=== PATIENT | male | born 1950 | race Caucasian/White ===

== ENCOUNTER 2024-07-30 08:18 | Outpatient (OUT) | payer MEDICARE, SELFPAY ==
[2024-07-30 08:53] LABS: Basophils Absolute Auto 0.1 10^3/uL (0.0-0.1); Basophils Percent Auto 1.4 % (0.2-2.0); Eosinophils Absolute Auto 0.4 10^3/uL (0.0-0.7); Eosinophils Percent Auto 4.6 % (0.9-7.0); Hematocrit 41.5 % (42.0-54.0); Hemoglobin 13.5 g/dL (14.0-18.0); Immature Granulocytes Abs Auto 0.03 10^3/uL (0.00-0.03); Immature Granulocytes Pct Auto 0.3 % (0.0-0.5); Lymphocytes Absolute Auto 1.5 10^3/uL (1.2-3.8); Lymphocytes Percent Auto 17.2 % (20.5-60.0); Mean Corpuscular HGB Conc 32.5 g/dL (29.9-35.2); Mean Corpuscular Hemoglobin 30.1 pg (25.9-34.0); Mean Corpuscular Volume 92.4 fL (80.0-94.0); Mean Platelet Volume 8.3 fL (9.5-13.5); Monocytes Absolute Auto 0.5 10^3/uL (0.3-0.8); Monocytes Percent Auto 5.8 % (1.7-12.0); Neutrophils Absolute Auto 6.2 10^3/uL (1.4-6.5); Neutrophils Percent Auto 70.7 % (43.0-75.0); Platelet Count 235 10^3/uL (150-450); Red Blood Count 4.49 10^6/uL (4.70-6.10); Red Cell Distribution Width 15.8 % (11.0-15.0); White Blood Count 8.8 10^3/uL (4.0-11.0)
[2024-07-30 09:23] LABS: Anion Gap 9.7; BUN Creatinine Ratio 12.2; Calcium 8.7 mg/dL (8.5-10.1); Carbon Dioxide 29.3 mmol/L (21.0-32.0); Chloride 105 mmol/L (98-107); Estimated GFR (African America >60 (>=60 mL/min/1.73m^2); Estimated GFR (Non-African Ame 58 (>=60 mL/min/1.73m^2); Glucose 104 mg/dL (74-106); Sodium 140 mmol/L (136-145); Thyroid Stimulating Hormone 3.311 uIU/mL (0.358-3.740)
== END 2024-07-30 08:19 | disposition home or self-care (01) ==
LOC: CARD 08:23
PROVIDERS: PCP Internal Medicine; Visit Provider Internal Medicine
DX: R00.2 Palpitations (principal); R53.83 Other fatigue; R01.1 Cardiac murmur, unspecified; G47.33 Obstructive sleep apnea (adult) (pediatric)
CPT/HCPCS: 36415; 80048; 84443; 85025; 93242

== ENCOUNTER 2024-08-07 13:55 | Outpatient (OUT) | payer MEDICARE, SELFPAY ==
--- NOTE | 2024-08-07 14:00 | CA_ITS ---
Patient Name: REBECA NICOLE MR#: [id number] : 1950 Exam Date: 08/07/2024 Ordering Doctor: DR YULIANA LARRY D.O. ECHOCARDIOGRAM REPORT PROCEDURE: CA ECHO DOPPLER COMPLETE INDICATIONS: Heart murmur, palpitations COMPARISON: None. DESCRIPTION: COMPLETE ECHOCARDIOGRAM Real-time transthoracic echocardiography with 2D, M-mode, spectral and color flow Doppler performed. QUALITY: Technical quality was suboptimal LEFT VENTRICLE: Normal chamber size. Borderline left ventricular hypertrophy. Left ventricular systolic function appears to be preserved but cannot totally rule out wall motion abnormalities because of the poor endocardial definition. Recommend to repeat 2D with contrast. LV EF: Normal left ventricular ejection fraction 55% neck DIASTOLIC: Normal diastolic function. ATRIAL SEPTUM: Appears intact LEFT ATRIUM: Normal chamber size. RIGHT ATRIUM: Moderate dilatation. RIGHT VENTRICLE: Normal chamber size. Normal right ventricular systolic function. TRICUSPID VALVE: Normal mobility and thickness. No stenosis with trivial regurgitation. Doppler studies reveal mildly (35-45) elevated right sided pressures.RVSP 41 mmHg MITRAL VALVE: Normal mobility and thickness. No evidence of mitral valve stenosis or regurgitation. Mild mitral annular calcification. AORTIC VALVE: Normal trileaflet appearance. Mildly calcified aortic valve. Normal leaflet mobility. No evidence of aortic valve stenosis. No aortic regurgitation. AORTIC ROOT: Normal diameter and appearance. Ascending aorta is normal in size. PULMONIC VALVE: Normal thickness and mobility. No stenosis. No regurgitation. PERICARDIUM: No evidence of pericardial effusion. IVC: IVC is dilated (2.4 cm), does not fully collapse. PLEURA: CONCLUSION: Technically difficult study Left ventricle systolic function appears to be overall preserved however cannot rule out wall motion abnormalities due to suboptimal definition of the endocardium, therefore I recommend to repeat 2D study with contrast, ejection fraction estimated to be 55% Normal left ventricular diastolic function Normal right ventricle size and systolic function Mild pulmonary hypertension, RVSP 41 mmHg No significant valvular abnormalities Dilated IVC without respiratory variation consistent with elevated central venous pressure, RAP 15 mmHg Adult Echocardiography Procedure Report Left Ventricle LVEDD (3.7 - 5.6 cm): 5.01 cm LVESD (2.2 - 4.0 cm): 3.12 cm LVIVS thickness (0.6 - 1.2 cm): 0.94 cm LVPW thickness (0.5 - 1.0 cm): 1.31 cm e': 0.09 m/s E - e': 7.52 LVOT Max Gradient: 1.90 mm[Hg] LVOT Area (cm2): 0.69 m/s Peak Velocity (LVOT): 0.69 m/s Mean Velocity (LVOT): 0.48 m/s LVOT Diameter 2.98 cm Left Ventricular Ejection Fraction: Left Atrium LA Volume Index (2D A2C): 33.41 ml/m2 Left Atrium Systolic Dimension: 4.73 cm Mitral Valve MV E to A Ratio: 0.93 MV Max Gradient: MV Mean Gradient: Mitral Valve A-Wave Peak Velocity: 0.69 m/s Mitral Valve E-Wave Peak Velocity: 0.65 m/s Cardiovascular Orifice Area: Right Ventricle RV Internal Diastolic Dimension: Aorta AO Root Diam: 3.93 cm Ascending Ao Diam: 3.32 cm Aortic Valve AoV Area (Peak Andrea): 4.13 cm2, 4.13 cm2 AoV Area (VTI): 5.28 cm2, 5.28 cm2 Deceleration Norman: Pressure Half-Time: Peak Velocity(Antegrade Flow): 1.16 m/s Peak Gradient(Antegrade Flow): 5.37 mm[Hg] Mean Velocity(Antegrade Flow): 0.78 m/s Mean Gradient(Antegrade Flow): 2.82 mm[Hg] Velocity Time Integral: 24.04 cm Tricuspid Valve Peak Velocity (Regurgitant Flow): 2.56 m/s Peak Velocity: Pulmonic Valve Mean Gradient: 1.65 mm[Hg] Mean Velocity: 0.59 m/s Peak Velocity: 0.90 m/s, 0.92 m/s Peak Gradient: 3.25 mm[Hg], 3.41 mm[Hg] Right Atrium Right Atrium Systolic Pressure: 98.01 ml, 98.01 ml Dictated by: Jany Lewis MD on 08/07/2024 at 16:42 Approved by: Jany Lewis MD on 08/07/2024 at 16:53
== END 2024-08-07 13:56 | disposition home or self-care (01) ==
LOC: CARD 13:55
PROVIDERS: PCP Internal Medicine; Visit Provider Internal Medicine
DX: R01.1 Cardiac murmur, unspecified (principal); R00.2 Palpitations
CPT/HCPCS: 93306

== ENCOUNTER 2024-08-19 18:27 | Emergency (ER) | payer MEDICARE, SELFPAY ==
[2024-08-19] VITALS (16 sets, daily range): BP systolic 128–164; BP diastolic 73–92; PULSE 52–71; TEMP 36.7; O2SAT 93–97; BMI 35.8
--- NOTE | 2024-08-19 18:46 | ECG_ITS ---
[facility] Test Date: 2024-08-19 Pat Name: REBECA NICOLE Department: Room: - Gender: Male Data Technician: : 1950 Requested By: [id number] Order Number: [id number] Reading MD: BETTE GRAFF M.D. Measurements Intervals [place] Rate: 61 P: 90 TX: 170 QRS: 22 QRSD: 102 T: 52 QT: 432 QTc: 435 Interpretive Statements 1100 Sinus rhythm 9110 normal ECG Compared to ECG 06/13/2021 07:43:30 No significant changes Electronically Signed On 08-19-2024 23:19:07 EDT by BETTE GRAFF M.D.
--- NOTE | 2024-08-19 19:38 | ED.ARRPALP1 ---
HPI - Arrhythmia/Palpitations General Chief Complaint: Arrhythmia/Palpitations Stated Complaint: rapid heart beats Time Seen by Provider: 08/19/24 19:21 Source: patient Mode of arrival: walk-in Limitations: no limitations History of Present Illness HPI narrative: patient complains of 2 different type palpitations in his chest over the past couple of months that are becoming more frequent. One is demonstrates a squeezing type rapid beat that is more noticeable when he is lying on his left side. Other times he will experience a fluttering sensation in his chest. Neither one is associated with chest pain, dyspnea or light headiness. Did wear a holter monitor and was called by his PCP. He has been experiencing runs of V. tach and atrial tachycardia. . Related Data Home Medications ?Medication ?Instructions ?Recorded ?Confirmed azithromycin 250 mg tablet mg 08/19/24 omeprazole 40 mg capsule,delayed mg 08/19/24 release tizanidine 4 mg tablet mg 08/19/24 triamcinolone acetonide 0.1 % applic topical 08/19/24 topical cream Allergies Allergy/AdvReac Type Severity Reaction Status Date / Time doxycycline Allergy Mild Hives Verified 08/19/24 18:44 Sulfa (Sulfonamide Allergy Mild Rash Verified 08/19/24 18:44 Antibiotics) Review of Systems ROS Status of ROS 10 or more systems reviewed and unremarkable except as noted in history and below [facility] Medical History (Updated 08/19/24 @ 23:52 by Samir Morales RN) GERD (gastroesophageal reflux disease) ?K21.9 - Gastro-esophageal reflux disease without esophagitis (ICD-10) Family History (Updated 08/19/24 @ 23:55 by Samir Morales RN) Other Rosacea Social History Little interest or pleasure in doing things: not at all Feeling down, depressed, or hopeless: not at all Exam Constitutional Vital Signs, click to edit/add: Last Vital Signs Temp 98.4 F 08/20/24 00:04 Pulse 60 08/20/24 00:04 Resp 18 08/20/24 00:04 BP 139/72 08/20/24 00:04 Pulse Ox 96 08/20/24 00:04 O2 Del Method Room Air 08/19/24 18:44 Common normals: no apparent distress, average body habitus, oriented x3, no limitations, healthy appearing, alert and well nourished [facility] Common normals: normocephalic and head/scalp atraumatic Eye Common normals: PERRL and EOMs intact bilaterally Respiratory Common normals: normal respiratory effort, no retractions, no use of accessory muscles and clear to auscultation bilaterally Cardio Common normals: regular rate, regular rhythm, S1 normal heart sound and S2 normal heart sound Extremity Common normals: normal to inspection and full ROM Neuro Common normals: oriented x3, CN's II-XII intact bilaterally and moves all extremities Psych Appearance: grossly normal Course Vital Signs Vital signs: Vital Signs Pulse Oximetry 95 08/19/24 18:42 Temperature 98.4 F 08/20/24 00:04 Pulse Rate 60 08/20/24 00:04 Respiratory Rate 18 08/20/24 00:04 Blood Pressure 139/72 08/20/24 00:04 Pulse Oximetry 96 08/20/24 00:04 Oxygen Delivery Method Room Air 08/19/24 18:44 MDM - Arrhythmia/Palpitations MDM Narrative Medical decision making narrative: care transferred at change of shift. Patient experiencing runs of V. tach and atrial tachycardia. No associated chest pain, dyspnea, or lightheadedness. Discussed with Community Leader Dr Treadwell and he felt the patient should be hospitalized because of the runs of V. tach. Discussed with the patient and his family and they are agreeable to transfer Lab Data Labs: Lab Results 08/19/24 Range/Units 18:49 WBC 9.2 (4.0-11.0) 10^3/uL RBC 4.52 L (4.70-6.10) 10^6/uL Hgb 13.6 L (14.0-18.0) g/dL Hct 41.2 L (42.0-54.0) % MCV 91.2 (80.0-94.0) fL MCH 30.1 (25.9-34.0) pg MCHC 33.0 (29.9-35.2) g/dL RDW 16.1 H (11.0-15.0) % Plt Count 244 (150-450) 10^3/uL MPV 8.4 L (9.5-13.5) fL Neut % (Auto) 68.7 (43.0-75.0) % Lymph % (Auto) 20.4 L (20.5-60.0) % [place] % (Auto) 6.7 (1.7-12.0) % Eos % (Auto) 2.5 (0.9-7.0) % Baso % (Auto) 1.5 (0.2-2.0) % Neut # (Auto) 6.3 (1.4-6.5) 10^3/uL Lymph # (Auto) 1.9 (1.2-3.8) 10^3/uL [place] # (Auto) 0.6 (0.3-0.8) 10^3/uL Eos # (Auto) 0.2 (0.0-0.7) 10^3/uL Baso # (Auto) 0.1 (0.0-0.1) 10^3/uL Abs Immat Gran (auto) 0.02 (0.00-0.03) 10^3/uL Imm/Tot Granulo (auto) 0.2 (0.0-0.5) % D-Dimer 0.51 (<=0.59) mg/L FEU Sodium 139 (136-145) mmol/L Potassium 3.8 (3.5-5.1) mmol/L Chloride 103 (98-107) mmol/L Carbon Dioxide 29.4 (21.0-32.0) mmol/L Anion Gap 10.4 BUN 17.0 (7.0-18.0) mg/dL Creatinine 1.23 (0.70-1.30) mg/dL Est GFR ( Amer) >60 (>=60 mL/min/1.73m^2) Est GFR (Non-Af Amer) 58 L (>=60 mL/min/1.73m^2) BUN/Creatinine Ratio 13.8 Glucose 94 (74-106) mg/dL Calcium 8.8 (8.5-10.1) mg/dL Troponin I High Sens 6.7 (4.0-76.1) pg/mL NT-Pro-B Natriuret Pep 147.0 (<=900.0) pg/mL Discharge Plan Discharge Chief Complaint: Arrhythmia/Palpitations Clinical Impression: Ventricular tachycardia Patient Disposition: [facility] Discharge Date/Time: 08/20/24 00:18
[2024-08-19 19:42] LABS: Basophils Absolute Auto 0.1 10^3/uL (0.0-0.1); Basophils Percent Auto 1.5 % (0.2-2.0); Eosinophils Absolute Auto 0.2 10^3/uL (0.0-0.7); Eosinophils Percent Auto 2.5 % (0.9-7.0); Hematocrit 41.2 % (42.0-54.0); Hemoglobin 13.6 g/dL (14.0-18.0); Immature Granulocytes Abs Auto 0.02 10^3/uL (0.00-0.03); Immature Granulocytes Pct Auto 0.2 % (0.0-0.5); Lymphocytes Absolute Auto 1.9 10^3/uL (1.2-3.8); Lymphocytes Percent Auto 20.4 % (20.5-60.0); Mean Corpuscular Hemoglobin 30.1 pg (25.9-34.0); Mean Corpuscular Volume 91.2 fL (80.0-94.0); Mean Platelet Volume 8.4 fL (9.5-13.5); Monocytes Absolute Auto 0.6 10^3/uL (0.3-0.8); Monocytes Percent Auto 6.7 % (1.7-12.0); Neutrophils Absolute Auto 6.3 10^3/uL (1.4-6.5); Neutrophils Percent Auto 68.7 % (43.0-75.0); Platelet Count 244 10^3/uL (150-450); Red Blood Count 4.52 10^6/uL (4.70-6.10); Red Cell Distribution Width 16.1 % (11.0-15.0); White Blood Count 9.2 10^3/uL (4.0-11.0)
[2024-08-19 19:50] LABS: D Dimer 0.51 mg/L FEU (<=0.59)
[2024-08-19 20:00] LABS: Anion Gap 10.4; BUN Creatinine Ratio 13.8; Calcium 8.8 mg/dL (8.5-10.1); Carbon Dioxide 29.4 mmol/L (21.0-32.0); Chloride 103 mmol/L (98-107); Estimated GFR (African America >60 (>=60 mL/min/1.73m^2); Estimated GFR (Non-African Ame 58 (>=60 mL/min/1.73m^2); Glucose 94 mg/dL (74-106); Potassium 3.8 mmol/L (3.5-5.1); Sodium 139 mmol/L (136-145); Troponin I High Sensitivity 6.7 pg/mL (4.0-76.1)
--- NOTE | 2024-08-19 21:05 | PC.NURSE ---
this patient said that Dr Cintron is going to transfer him to [facility]
--- NOTE | 2024-08-19 21:13 | PC.NURSE ---
this patient requesting to sit at the edge of the bed,this patient's and his son at bed side. this patient voices no concerns, needs and shows no signs of distress. this patient is aware that we are waiting for the official acceptant and a room number from [facility]
[2024-08-20 00:04] VITALS: BP 139/72; PULSE 60; TEMP 36.9; O2SAT 96
--- NOTE | 2024-08-20 00:19 | PC.NURSE ---
patient report and paper work given to [facility]. this patient voices no concerns and shows no signs of distress. I called patient report to Codi GRECO at [facility] [place] [phone], patient will going to room 0038
== END 2024-08-20 00:18 | disposition short-term general hospital (02) ==
PROVIDERS: Emergency Provider Internal Medicine; PCP Internal Medicine
DX: I47.20 Ventricular tachycardia, unspecified (principal)
CPT/HCPCS: 36415; 71045; 80048; 83880; 84484; 85025; 85378; 93005; 99285

== ENCOUNTER 2024-09-14 08:11 | Outpatient (OUT) | payer MEDICARE, SELFPAY ==
--- NOTE | 2024-09-14 | NM_ITS ---
Patient Name: REBECA NICOLE MR#: [id number] : 1950 Exam Date: 09/14/2024 Ordering Doctor: YESSENIA DELCID CNP RADIOLOGY REPORT PROCEDURE: NM DONALD PERF SPECT REST STR COMPARISON: None. INDICATIONS: ATYPICAL ATRIAL FLUTTER, PVC'S, MILLER TECHNIQUE: Exam Description: Stress/Rest two day protocol gated SPECT Rest Imagin.2 mCi Tc-99m Cardiolite IV on 09/15/2024 Stress Imaging 27.6 mCi Tc-99m Cardiolite IV on 09/14/2024 Exercise Protocol: 0.4 mg Lexiscan given IV Heart Rate (bpm): Rest: 54 Max: 88 PMHR: 60 Blood Pressure: Rest: 128/72 Max: 138/80 Symptoms: Rest and peak stress ECG findings were pending and the exercise portion of the study was pending per attending physician [facility] . For more details please see separate cardiac stress test report. FINDINGS: QUALITY OF STUDY: Good PERFUSION DEFECT: LOCATION: Mid and basal inferior SIZE: Medium SEVERITY: Mild TYPE: Fixed with adequate contractility and thickening consistent with diaphragmatic attenuation WALL MOTION: Normal LV SIZE:EDV 140 mL. TID / TCD: 1.1 LVEF: Calculated EF 50%. SUMMARY: Normal myocardial perfusion imaging study CONCLUSION: Normal myocardial perfusion stress test without evidence of ischemia or infarction. Diaphragmatic attenuation is noted. Normal left ventricle systolic function, ejection fraction 50% No transient ischemic dilatation, TID 1.1 EKG portion of stress test is reported separately Dictated by: Jany Lewis MD on 09/15/2024 at 19:44 Approved by: Jany Lewis MD on 09/15/2024 at 19:49
--- OUTSIDE RECORDS SUMMARY | 2024-09-14 08:13 | XMS_ITS | Referral Summary ---
Author Organization [facility] Address [address] [place] [address] Care Team Providers Care Applications Manager Name Role Phone Gutierrez Morton DO Primary Care Provider [phone] Encounters Date Type Department Care Team Description 08/25/2024 9:00 AM EDT Office Visit [facility] Heart at [address] [id number] Ling Hdz CNP PVC (premature ventricular contraction) (Primary Dx); Atypical atrial flutter (CMS/HCC); Dyspnea on exertion; NSVT (nonsustained ventricular tachycardia) (CMS/HCC); ALEXANDRA (obstructive sleep apnea); Primary hypertension; S/P ablation of atrial flutter 08/20/2024 1:53 AM EDT - 08/22/2024 2:24 PM EDT Hospital Encounter [facility] [address] [place] [phone] Dwight Cody MD Iqbal, Amna, MD Omar, Muhammad, MD Okoro, Bonaventure, MD V-tach (CMS/HCC) (Primary Dx); Atrial flutter, unspecified type (CMS/HCC); Atypical atrial flutter (CMS/HCC) Discharge Disposition: Home or Self Care () 08/21/2024 1:05 PM EDT - 08/21/2024 3:05 PM EDT Surgery [facility] Vascular Lab [address] [place] [phone] Jayro Wright MD Ablation atrial flutter [26032] 08/20/2024 Travel from Last 3 Months Allergies Active Allergy Reactions Criticality Noted Date Comments Doxycycline Hives 08/20/2024 Latex, Natural Rubber Rash Low 02/17/2024 Prednisone Unknown 02/18/2023 Sulfa (Sulfonamide Antibiotics) Rash Low 08/06 Sulfamethoxazole-Trimethoprim Rash,Unknown Low 06/07 Rash Medications Medication Sig Dispensed Refills Start Date End Date Status omeprazole (PriLOSEC) [address] capsule Take 40 mg by mouth before breakfast. Do not crush or chew. Active azithromycin (Zithromax) 250 mg tablet Take 250 mg by mouth every other day. Active apixaban (Eliquis) 5 mg tabletIndications:At ypical atrial flutter (CMS/HCC) Take 1 tablet (5 mg) by mouth two times daily. 60 tablet 1 08/22/2024 10/21/2024 Active metoprolol succinate XL (Toprol-XL) 25 mg 24 hr tabletIndications:At ypical atrial flutter (CMS/HCC) Take 1 tablet (25 mg) by mouth in the morning. Do not crush or chew. 30 tablet 1 08/23/2024 10/22/2024 Active cholecalciferol, vitamin D3, 50 mcg (2,000 unit) capsule Take 2,000 Units by mouth in the morning. Active Active Problems Problem Noted Date Diagnosed Date V-tach 08/20/2024 Assessment & Plan (08/21/2024 1:26 PM EDT): - ANRT sv fib/flutter - Etiology unknown - Getting EP study today Assessment & Plan (08/20/2024 2:35 AM EDT): -Etiology unknown - Most excludes ACS as etiology - Will obtain twelve-lead EKG, troponins, and consult cardiology - Patient is currently started on subcu heparin and monitored very closely HTN (hypertension) 08/20/2024 Assessment & Plan (08/21/2024 1:26 PM EDT): -Blood pressure stable - Patient denies having any prior history of high blood pressure - Will monitor very closely and if numbers continue to be high we will treat Assessment & Plan (08/20/2024 2:35 AM EDT): -Blood pressure today is 157/57. - Patient denies having any prior history of high blood pressure - Will monitor very closely and if numbers continue to be high we will treat Morbid obesity 08/20/2024 Assessment & Plan (08/21/2024 1:26 PM EDT): -Weight loss is extremely important for this patient - Diet and exercise modalities to be used Assessment & Plan (08/20/2024 2:35 AM EDT): -Weight loss is extremely important for this patient - Diet and exercise modalities to be used GERD (gastroesophageal reflux disease) Assessment & Plan (08/21/2024 1:26 PM EDT): Use pantoprazole DVT prophylaxis using VTE protocols per [facility] placed on Protonix Close Monitoring of pt is ordered. N.p.o. after midnight Consult cardiology. I discussed the plan of care with the patient and nursing staff in the room and everyone appears to be in agreement Assessment & Plan (08/20/2024 2:35 AM EDT): Use pantoprazole DVT prophylaxis using VTE protocols per [facility] placed on Protonix Close Monitoring of pt is ordered. N.p.o. after midnight Consult cardiology. 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 No 08/20/2024 Humiliation, Afraid, Rape, and Kick questionnair e Answer Date Recorded Within the last year, have y ou been afraid of your partner or ex-partner? No 08/20/2024 Emotionally Abused Not on file 08/20/2024 Physically Abused Not on file 08/20/2024 Sexually Abused Not on file 08/20/2024 Overall Financial Resource Strain (CARDIA) Answe r Date Recorded How hard is it for you to pa y for the very basics like food, housing, medical care, and heating? Not hard at all 08/20/2024 Transportation Answer Date Recorded In the past 12 months, has l ack of transportation kept you from medical appointments or from getting medications? No 08/20/2024 Lack of Transportation (Non-Medical) Not on file 08/20/2024 Housing Stability Vital Sign Answer Isaias e Recorded In the last 12 months, was t here a time when you were not able to pay the mortgage or rent on time? No 08/20/2024 Number of Times Moved in the Last Year Not on fi le 08/20/2024 At any time in the past 12 m [facility], were you homeless or living in a snf (including now)? No 08/20/2024 Hunger Vital Sign Answer Date Recorded Within the past 12 months, y ou worried that your food would run out before you got the money to buy more. Never true 08/21/19 25 Ran Out of Food in the Last Year Not on file 08/20/2024 Sex and Gender Information Value Date Recorded Sex Assigned at Male 08/20/2024 9:17 AM EDT Gender Identity Male 08/20/2024 9:17 AM EDT Sexual Orientation Don't know 08/20/2024 9 :17 AM EDT Last Filed Vital Signs Vital Sign Reading Time Taken Comments Blood Pressure 142/85 08/25/2024 8:58 AM EDT Pulse 57 08/25/2024 8:58 AM EDT Temperature 36.3 C (97.3 F) 08/22/2024 12:16 PM EDT Respiratory Rate 12 08/22/2024 12:16 PM EDT Oxygen Saturation 98% 08/25/2024 8:58 AM EDT Inhaled Oxygen Concentration - - Weight 143 kg (316 lb) 08/25/2024 8:58 AM EDT Height 182.9 cm (6') 08/25/2024 8:58 AM EDT Body Mass Index 42.86 08/25/2024 8:58 AM EDT Plan of Treatment Upcoming Encounters Date Type Department Care Team (Late st Contact Info) Description 10/27/2024 1:45 PM EDT Office Visit [facility] Heart at [facility] [address] [place] [address] Magdy Phoenix MD [address] [place] [phone] Procedures Procedure Name Priority Date/Time Associated Diagnosis Comments ECG 12 LEAD UNIT PERFORMED Routine 08/25/2024 8:59 AM EDT Atypical atrial flutter (CMS/HCC) LIMITED ECHO (TTE) Routine 08/22/2024 9: 03 AM EDT MAGNESIUM Pending Discharge 08/22/2024 7:09 AM EDT COMPREHENSIVE METABOLIC PANEL Pending Discharge 08/22/2024 7:09 AM EDT CBC Pending Discharge 08/22/2024 7:09 AM EDT ECG 12-LEAD Today 08/21/2024 4:38 PM EDT ABLATION A-FLUTTER Routine 08/21/2024 4: 03 PM EDT Atrial flutter, unspecified type (CMS/HCC) POCT ACT Routine 08/21/2024 3:55 PM EDT COMPLETE ECHO (TTE) W/ IMAGING AGENT Routine 08/20/2024 3:00 PM EDT ECG 12-LEAD Routine 08/20/2024 6:26 AM EDT CBC WITH AUTO DIFFERENTIAL Routine 08/20/2024 4:25 AM EDT HIGH SENSITIVITY TROPONIN I Routine 08/20/2024 4:25 AM EDT CBC AND DIFFERENTIAL Routine 08/20/2024 4:25 AM EDT COMPREHENSIVE METABOLIC PANEL Routine 08/20/2024 4:25 AM EDT from Last 3 Months Results * ECG 12 lead unit performed (08/25/2024 8:59 AM EDT) Ling Hdz [facility] ECG ORDERABLES * LIMITED ECHO (TTE) (08/22/2024 9:03 AM EDT) Anatomical Region Laterality Modality Other 08/22/2024 8:58 AM EDT Narrative 08/22/2024 10:23 AM EDT 1 1 [place] [facility] Heart Station [address] [place] [address] [phone] (fax) Echocardiogram-[facility] Name: REBECA NICOLE Study Date: 08/22/2024 08:58 AM B/P: 153 mmHg/80 mmHg HR: Date of : 1950 Location: [facility] Height: 75 in. Age: 74 year(s) Patient Room: 3167 Weight: 296 lb. Gender: Male Patient Status: InPt BSA: 2.59 m2 Indication: R/O pericardial effusion, S/P aflutter ablation 08/21/24 Examination: Limited Echo Image Quality: Fair Patient Consent: Procedure explained to patient Conclusions Left Ventricle: Global left ventricular systolic function is normal. The EF is 55 % visually. Right Ventricle: The right ventricle is mildly enlarged. Right ventricular systolic function appears normal. Pericardium: No pericardial effusion. Overall Conclusions: Limited study was performed as ordered no Doppler interrogation of the valves performed. Measurements Left Ventricle Label Value Normal Value LVEF visual 55 % Right Ventricle Label Value Normal Value RVDd, 2D 4.66 cm (1.9cm - 3.8cm) Great Vessels Label Value Normal Value IVC 1.9 cm (1.2cm - 2.3cm) Findings Left Ventricle: Global left ventricular systolic function is normal. The EF is 55 % visually. Right Ventricle: The right ventricle is mildly enlarged. Right ventricular systolic function appears normal. Aortic Valve: Mild aortic cusp calcification is noted. Pericardium: No pericardial effusion. The Attending Physician has personally reviewed the examination Procedure Staff Reading Group: [facility] Religion Instructor: Junior Aguilar RDCS Ordering Physician: JAYRO WRIGHT Procedure Note Mehdi Pat MD - 08/22/2024 1 1 [place] [facility] Heart Station [address] [facility] [place] [address] [phone] (fax) Echocardiogram-[facility] Name: REBECA NICOLE Study Date: 08/22/2024 08:58 AM B/P: 153 mmHg/80 mmHg HR: Date of : 1950 Location: [facility] Height: 75 in. Age: 74 year(s) Patient Room: 3167 Weight: 296 lb. Gender: Male Patient Status: InPt BSA: 2.59 m2 Indication: R/O pericardial effusion, S/P aflutter ablation 08/21/24 Examination: Limited Echo Image Quality: Fair Patient Consent: Procedure explained to patient Conclusions Left Ventricle: Global left ventricular systolic function is normal. The EF is 55 % visually. Right Ventricle: The right ventricle is mildly enlarged. Right ventricular systolic function appears normal. Pericardium: No pericardial effusion. Overall Conclusions: Limited study was performed as ordered no Doppler interrogation of the valves performed. Measurements Left Ventricle Label Value Normal Value LVEF visual 55 % Right Ventricle Label Value Normal Value RVDd, 2D 4.66 cm (1.9cm - 3.8cm) Great Vessels Label Value Normal Value IVC 1.9 cm (1.2cm - 2.3cm) Findings Left Ventricle: Global left ventricular systolic function is normal. The EF is 55 % visually. Right Ventricle: The right ventricle is mildly enlarged. Right ventricular systolic function appears normal. Aortic Valve: Mild aortic cusp calcification is noted. Pericardium: No pericardial effusion. The Attending Physician has personally reviewed the examination Procedure Staff Reading Group: [facility] Religion Instructor: Junior Aguilar RDCS Ordering Physician: JAYRO WRIGHT Jayro Wright MD CV ECHO PROCEDURES * (ABNORMAL) CBC (08/22/2024 7:09 AM EDT) Auto WBC 9.06 4.00 - 10.60 10*3/uL 08/22/2024 8:24 AM EDT [facility] ([facility]) RBC 4.46 4.20 - 5.70 10*6/uL 08/22/2024 8:24 AM EDT [facility] ([facility]) Hemoglobin 13.3 13.0 - 17.0 g/dL 08/22/2024 8:24 AM EDT [facility] ([facility]) Hematocrit 41.2 39.0 - 50.0 % 08/22/2024 8:24 AM EDT [facility] ([facility]) MCV 92.4 82.0 - 98.0 fL 08/22/2024 8:24 AM EDT [facility] ([facility]) MCH 29.8 27.0 - 33.0 pg 08/22/2024 8:24 AM EDT [facility] ([facility]) MCHC 32.3 32.0 - 35.0 g/dL 08/22/2024 8:24 AM EDT [facility] ([facility]) RDW 16.2(H) 11.5 - 15.0 % 08/22/2024 8:24 AM EDT [facility] ([facility]) Platelets 241 150 - 400 10*3/uL 08/22/2024 8:24 AM EDT [facility] ([facility]) Blood Venous blood specimen / Unknown Venipuncture / Unknown 08/22/2024 7:09 AM EDT 08/22/2024 8:00 AM EDT Anika Quintanilla MD LAB BLOOD ORDERABLES Performing Organization Address City/[facility]/ZIP Co de Phone Number [facility]) [address] [place] [address] * Magnesium (08/22/2024 7:09 AM EDT) Magnesium 2.2 1.9 - 2.7 mg/dL 08/22/2024 8:22 AM EDT [facility] ([facility]) Blood Venous blood specimen / Unknown Venipuncture / Unknown 08/22/2024 7:09 AM EDT 08/22/2024 7:59 AM EDT Anika Quintanilla MD LAB BLOOD ORDERABLES Performing Organization Address City/[facility]/ZIP Co de Phone Number [facility] ([facility]) [address] [place] [address] * (ABNORMAL) Comprehensive metabolic panel (08/22/2024 7:09 AM EDT) Only the most recent of2 resultswithin the time period is included. Sodium 140 136 - 145 mmol/L 08/22/2024 8:22 AM EDT [facility] ([facility]) Potassium 4.3 3.5 - 5.1 mmol/L 08/22/2024 8:22 AM EDT [facility] ([facility]) Chloride 107 98 - 107 mmol/L 08/22/2024 8:22 AM EDT [facility] ([facility]) CO2 29 21 - 31 mmol/L 08/22/2024 8:22 AM EDT [facility] ([facility]) Anion Gap 8 7 - 20 mmol/L 08/22/2024 8:22 AM EDT [facility] ([facility]) BUN 16 7 - 25 mg/dL 08/22/2024 8:22 AM [facility] ([facility]) Creatinine 1.07 0.70 - 1.30 mg/dL 08/22/2024 8:22 AM [facility] ([facility]) BUN/Creatinine Ratio 15.0 08/06 8:22 AM [facility] ([facility]) Glucose 97 70 - 100 mg/dL 08/22/2024 8:22 AM [facility] ([facility]) Calcium 8.5(L) 8.6 - 10.3 mg/dL 08/22/2024 8:22 AM [facility] ([facility]) AST 15 13 - 39 U/L 08/22/2024 8:22 AM [facility] ([facility]) ALT (SGPT) 12 7 - 52 U/L 08/22/2024 8:22 AM [facility] ([facility]) Alkaline Phosphatase 57 34 - 104 U/L 08/22/2024 8:22 AM [facility] ([facility]) Total Protein 6.7 6.0 - 8.3 g/dL 08/22/2024 8:22 AM [facility] ([facility]) Albumin 3.6 3.5 - 5.7 g/dL 08/22/2024 8:22 AM [facility] ([facility]) Total Bilirubin 0.5 0.3 - 1.0 mg/dL 08/22/2024 8:22 AM [facility] ([facility]) eGFR 72.8 >60.0 mL/min/1. 73m*2 08/22/2024 8:22 AM [facility] ([facility]) Comment:The [facility] s estimated glomerular filtration rate (eGFR) will no longer include consideration of race in its calculation. The [employer] s eGFR Task Force developed new recommendations for the estimation of the glomerular filtration rate in the [place] They recommend immediate implementation of the new equation refit without the race variable in all laboratories because the calculation does not include race. In addition to not including race in the calculation and reporting, it included diversity in its development, and has acceptable performance characteristics and potential consequences that do not disproportionately affect any one group of individuals. Blood Venous blood specimen / Unknown Venipuncture / Unknown 08/22/2024 7:09 AM EDT 08/22/2024 7:59 AM EDT Anika Quintanilla MD LAB BLOOD ORDERABLES Performing Organization Address City/[facility]/ZIP Co de Phone Number [facility] ([facility]) [address] [place] [address] * ECG 12 lead (08/21/2024 4:38 PM EDT) Only the most recent of2 resultswithin the time period is included. Ventricular Rate 62 BPM GE MUSE Atrial Rate 62 BPM GE MUSE ID Interval 186 ms GE MUSE QRS DURATION 114 ms GE MUSE QT Interval 454 ms GE MUSE QTC CALCULATION(BAZE TT) 460 ms GE MUSE P [place] 107 degrees GE MUSE R-[place] -22 degrees GE MUSE T Wave [place] 21 degrees GE MUSE 08/21/2024 4:33 PM EDT 08/21/2024 4:46 PM EDT Impressions GE MUSE - 08/21/2024 4:46 PM EDT Normal sinus rhythm Normal ECG When compared with ECG of 20-AUG-2024 02:53, Premature ventricular complexes are no longer Present Confirmed by Emerson GROSS SAMER J. ([id number]) on 08/21/2024 4:46:23 PM Narrative Procedure Note Horace Gross MD - 08/21/2024 IMPRESSION: Normal sinus rhythm Normal ECG When compared with ECG of 20-AUG-2024 02:53, Premature ventricular complexes are no longer Present Confirmed by Emerson GORSS SAMER J. ([id number]) on 08/21/2024 4:46:23 PM Jayro Wright MD ECG ORDERABLES GE MUSE * ABLATION A-FLUTTER (08/21/2024 4:03 PM EDT) Anatomical Region Laterality Modality Other Narrative 08/21/2024 5:07 PM EDT Images from the original result were not included. 08/21/24 Diagnostic EP Study and Atrial flutter ablation Patient consent: EPS and RFA were discussed with the patient in great detail. The risks of bleeding, infection, vascular injury, pulmonary embolus, cardiac perforation, heart block necessitating pacemaker insertion, stroke, NE and were among those discussed. Alternatives were reviewed including the option of no therapy. All questions were answered. The patient agreed to proceed. Written informed consent was obtained from the patient after a full explanation of the risks and benEPS and RFA were discussed with the patient in great detail. The risks of bleeding, infection, vascular injury, pulmonary embolus, cardiac perforation, heart block necessitating pacemaker insertion, stroke, NE and were among those discussed. Alternatives were reviewed including the option of no therapy. All questions were answered. The patient agreed to proceed. Written informed consent was obtained from the patient after a full explanation of the risks and benefits of the procedure. The patient was brought to the lab in the fasting state. Continuous electrocardiographic and hemodynamic monitoring was initiated. The patient was prepped and draped in the usual sterile fashion. Presenting Rhythm: Sinus Rhythm Vascular Access: On the right CFV, we obtained access with 7 and 8 Fr venous On the left CFV: 11 Fr and 8 Fr Diagnostic catheters: CS- diagnostic catheter, Pentaray mapping catheter, ST-SF: ablation catheter. We also placed the His and RV catheters. Arrhythmia: During placement of diagnostic catheters, we noticed that the patient developed narrow complex tachycardia-which was likely in keeping with atrial flutter with a tachycardia cycle length of 288 ms with some variability. Considering this, we then performed entrainment at cycle length of 260 ms from CS 7,8 demonstrated: Concealed entrainment with PPI minus TCL = 0 ms. There was some challenge in keeping the ablation catheter and diagnostic catheters in a stable position. We then decided to use high density mapping/PentaRay catheter to perform an activation map. Based on the activation map of the right atrium, we noticed that the early meets late point was concentrated/localized to the cavotricuspid isthmus region. Based on this, clinical tachycardia as well as entrainment response we concluded that the clinical arrhythmia was cavotricuspid isthmus dependent atrial flutter. 3 D mapping (BiosXtellus Jo), was used to create the right atrial shell as well as electroanatomical map. Ablation: The 8F sheath was then exchanged for the Vizigo sheath. Biosense Jo Thermocool ST-SFr ablation catheter was advanced through this sheath and positioned along the CTI. Using the Biosense Jo CARTO3 electroanatomical mapping system and fluoroscopy CTI ablation was performed from the tricuspid annulus to the inferior vena cava. During CTI ablation, the atrial flutter slowed and terminated. After first pass ablation, additional mapping of the CTI line was performed to confirm double potentials and assess transisthmus conduction time. End points: Bidirectional block was achieved and verified by pacing from CS and ablation catheter (medial and lateral to the line). Under high quality fluoroscopy, the CS catheter, ICE catheter, and Agilis sheath/ablation catheter were removed from the body (through the IVC filter) without disruption of the IVC filter position. Hemostasis: Figure of 8 suture were applied on both sides Conclusions: The Ablation map is shown below- depicting ablation lesions Recommendations: - Please give Apixaban tonight at 2200 - Figure of 8 sutures to be removed tomorrow Magdy Phoenix MD CV ELECTROPHYSIOLOGY PROCEDURES * (ABNORMAL) POC Activated Clotting Time (08/21/2024 3:55 PM EDT) [facility] Signature POCT ACT 216(A) 82 - 152 seconds QC Pass/Fail Passed QC LOT # 8 QC Expiration Date 73,125 Blood Venous blood specimen / Unknown 08/21/2024 3:55 PM EDT Narrative Ron Aguiar MT - 08/25/2024 7:39 AM EDT Qc lot [id number]; emulsification operator [id number] Jayro Wright MD POINT OF CARE TEST E NTER/EDIT ORDERABLES * COMPLETE ECHO (TTE) W/ IMAGING AGENT (08/20/2024 3:00 PM EDT) Anatomical Region Laterality Modality Other 08/20/2024 2:24 PM EDT Narrative 08/20/2024 5:26 PM EDT 1 1 [place] [facility] Heart Station [address] [place], [place] [phone] (fax) Echocardiogram-[facility] Name: REBECA NICOLE Study Date: 08/20/2024 02:24 PM B/P: 125 mmHg/96 mmHg HR: 57 bpm Date of : 1950 Location: [facility] Height: 78 in. Age: 74 year(s) Patient Room: [facility] Weight: 310 lb. Gender: Male Patient Status: InPt BSA: 2.72 m2 Indication: Paroxysmal atrial tachycardia Examination: Echocardiogram (Complete), Lumason Contrast Image Quality: Fair Patient Consent: Procedure explained to patient Exam Details Contrast: I.V. dose of Lumason Conclusions Left Ventricle: The left ventricle is normal size. Global left ventricular systolic function is normal. The EF is 60 % visually. Left ventricular wall thickness is mildly increased. No regional wall motion abnormality. Right Ventricle: The right ventricle appears enlarged. Right ventricular systolic function appears normal. Unable to assess right sided pressures due to lack of measurable tricuspid regurgitation. Left Atrium: The left atrium is mildly enlarged. Overall Conclusions: Due to suboptimal imaging Lumason contrast was administered for opacification and better delineation of endocardial borders. Measurements Left Ventricle Label Value Normal Value LVOTd 2.6 cm (19cm - 21cm) LVOT VTI 17.7 cm (18cm - 22cm) LVOT PGmax 3 mmHg LVEF visual 60 % LVDd, 2D 4.36 cm (4.2cm - 5.9cm) LVDs, 2D 2.97 cm (2.1cm - 4cm) IVSd, 2D 1.17 cm (0.6cm - 1.1cm) LVPWd, 2D 1.16 cm (0.6cm - 1cm) LV Mass, 2D ASE 180.76 g LV Mass Index, 2D ASE 66.5 g/m?? (50g/m?? - 102.4g/m??) RWT, MM 0.53 (0 - 0.42) LVSVI, 2D 19.1 ml/m2 LVOT PGmean 1 mmHg LVSV_LVOT 94 ml Left Atrium Label Value Normal Value LA Volume, BP 96 ml (18ml - 58ml) LADs, 2D 4.1 cm (3cm - 4cm) LAESV index, BP 35.3 ml/m?? Right Atrium Label Value Normal Value RA Area 25.5 cm?? Aortic Valve Label Value Normal Value AV DVI 0.54 AV VTI 33.5 cm Mitral Valve Label Value Normal Value MV E Vmax 0.64 m/s MV A Vmax 0.76 m/s MV E/A 0.84 MV E/E' lateral 6.7 MV E' lateral 0.1 m/s Aorta Label Value Normal Value AoAsc 3.4 cm AoRoot, 2D 3.3 cm (1.4cm - 3.8cm) Great Vessels Label Value Normal Value IVC 2.4 cm (1.2cm - 2.3cm) Valvular Assessment LVOT 0.7 - 1.1 m/sec Aortic Valve 1.0 - 1.7 m/sec Mitral Valve 0.6 - 1.3 m/sec Tricuspid Valve 0.3 - 0.7 m/sec Pulmonic Valve 0.6 - 0.9 m/sec Regurgitation No Trivial Trivial Trivial Stenosis No No No No Max Velocity 0.86 m/sec 1.59 m/s 0.64 m/sec Max Gradient 10.00 mmHg Mean Gradient 5.00 mmHg Valve Area 2.9 cm?? Findings Left Ventricle: The left ventricle is normal size. Global left ventricular systolic function is normal. The EF is 60 % visually. Left ventricular wall thickness is mildly increased. No regional wall motion abnormality. Right Ventricle: The right ventricle appears enlarged. Right ventricular systolic function appears normal. Unable to assess right sided pressures due to lack of measurable tricuspid regurgitation. Left Atrium: The left atrium is mildly enlarged. Right Atrium: The right atrium is moderately enlarged. Mitral Valve: Trivial mitral regurgitation. No mitral valve stenosis. There is mitral annular calcification. Aortic Valve: No aortic valve regurgitation. No aortic valve stenosis. Aortic leaflets exhibit mild calcification. The aortic valve is trileaflet. Tricuspid Valve: Tricuspid valve appears normal. Trivial tricuspid regurgitation. No tricuspid valve stenosis. Pulmonic Valve: Pulmonary valve appears normal. Trivial pulmonary regurgitation. No pulmonic valve stenosis. Aorta: The aortic root exhibits normal size. The ascending aorta measures 3.40 cm. Ascending aorta is normal in size. Great Vessels: IVC: The IVC is dilated. There is inspiratory collapse of the IVC. Pericardium: There is mild pericardial thickening anterior to the heart. There is a small pericardial effusion. Procedure Staff Reading Group: [facility] Religion Instructor: MARLA Chan Ordering Physician: MYRNA RAMOS Procedure Note Horace Gross MD - 08/20/2024 1 1 [facility] Heart Station [address] [place] [address] [phone] (fax) Echocardiogram-[facility] Name: REBECA NICOLE Study Date: 08/20/2024 02:24 PM B/P: 125 mmHg/96 mmHg HR: 57 bpm Date of : 1950 Location: [facility] Height: 78 in. Age: 74 year(s) Patient Room: 3167 Weight: 310 lb. Gender: Male Patient Status: InPt BSA: 2.72 m2 Indication: Paroxysmal atrial tachycardia Examination: Echocardiogram (Complete), Lumason Contrast Image Quality: Fair Patient Consent: Procedure explained to patient Exam Details Contrast: I.V. dose of Lumason Conclusions Left Ventricle: The left ventricle is normal size. Global left ventricular systolic function is normal. The EF is 60 % visually. Left ventricular wall thickness is mildly increased. No regional wall motion abnormality. Right Ventricle: The right ventricle appears enlarged. Right ventricular systolic function appears normal. Unable to assess right sided pressures due to lack of measurable tricuspid regurgitation. Left Atrium: The left atrium is mildly enlarged. Overall Conclusions: Due to suboptimal imaging Lumason contrast was administered for opacification and better delineation of endocardial borders. Measurements Left Ventricle Label Value Normal Value LVOTd 2.6 cm (19cm - 21cm) LVOT VTI 17.7 cm (18cm - 22cm) LVOT PGmax 3 mmHg LVEF visual 60 % LVDd, 2D 4.36 cm (4.2cm - 5.9cm) LVDs, 2D 2.97 cm (2.1cm - 4cm) IVSd, 2D 1.17 cm (0.6cm - 1.1cm) LVPWd, 2D 1.16 cm (0.6cm - 1cm) LV Mass, 2D ASE 180.76 g LV Mass Index, 2D ASE 66.5 g/m?? (50g/m?? - 102.4g/m??) RWT, MM 0.53 (0 - 0.42) LVSVI, 2D 19.1 ml/m2 LVOT PGmean 1 mmHg LVSV_LVOT 94 ml Left Atrium Label Value Normal Value LA Volume, BP 96 ml (18ml - 58ml) LADs, 2D 4.1 cm (3cm - 4cm) LAESV index, BP 35.3 ml/m?? Right Atrium Label Value Normal Value RA Area 25.5 cm?? Aortic Valve Label Value Normal Value AV DVI 0.54 AV VTI 33.5 cm Mitral Valve Label Value Normal Value MV E Vmax 0.64 m/s MV A Vmax 0.76 m/s MV E/A 0.84 MV E/E' lateral 6.7 MV E' lateral 0.1 m/s Aorta Label Value Normal Value AoAsc 3.4 cm AoRoot, 2D 3.3 cm (1.4cm - 3.8cm) Great Vessels Label Value Normal Value IVC 2.4 cm (1.2cm - 2.3cm) Valvular Assessment LVOT 0.7 - 1.1 m/sec Aortic Valve 1.0 - 1.7 m/sec Mitral Valve 0.6 - 1.3 m/sec Tricuspid Valve 0.3 - 0.7 m/sec Pulmonic Valve 0.6 - 0.9 m/sec Regurgitation No Trivial Trivial Trivial Stenosis No No No No Max Velocity 0.86 m/sec 1.59 m/s 0.64 m/sec Max Gradient 10.00 mmHg Mean Gradient 5.00 mmHg Valve Area 2.9 cm?? Findings Left Ventricle: The left ventricle is normal size. Global left ventricular systolic function is normal. The EF is 60 % visually. Left ventricular wall thickness is mildly increased. No regional wall motion abnormality. Right Ventricle: The right ventricle appears enlarged. Right ventricular systolic function appears normal. Unable to assess right sided pressures due to lack of measurable tricuspid regurgitation. Left Atrium: The left atrium is mildly enlarged. Right Atrium: The right atrium is moderately enlarged. Mitral Valve: Trivial mitral regurgitation. No mitral valve stenosis. There is mitral annular calcification. Aortic Valve: No aortic valve regurgitation. No aortic valve stenosis. Aortic leaflets exhibit mild calcification. The aortic valve is trileaflet. Tricuspid Valve: Tricuspid valve appears normal. Trivial tricuspid regurgitation. No tricuspid valve stenosis. Pulmonic Valve: Pulmonary valve appears normal. Trivial pulmonary regurgitation. No pulmonic valve stenosis. Aorta: The aortic root exhibits normal size. The ascending aorta measures 3.40 cm. Ascending aorta is normal in size. Great Vessels: IVC: The IVC is dilated. There is inspiratory collapse of the IVC. Pericardium: There is mild pericardial thickening anterior to the heart. There is a small pericardial effusion. Procedure Staff Reading Group: [facility] Religion Instructor: MARLA Chan Ordering Physician: MYRNA RAMOS Myrna Ramos MD CV ECHO PROCEDURES * High Sensitivity Troponin I (08/20/2024 4:25 AM EDT) [facility] High Sensitivity Troponin I 5 <20 ng/L 08/20/2024 5:52 AM EDT [facility] ([facility]) Blood Venous blood specimen / Unknown Venipuncture / Unknown 08/20/2024 4:25 AM EDT 08/20/2024 5:18 AM EDT Srinivas Vuong MD LAB BLOOD ORDERABLE S [facility] ([facility]) [address] [place] [address] * (ABNORMAL) CBC auto differential (08/20/2024 4:25 AM EDT) [facility] Auto WBC 8.89 4.00 - 10.60 10*3/uL 08/20/2024 5:36 AM EDT [facility] ([facility]) RBC 4.38 4.20 - 5.70 10*6/uL 08/20/2024 5:36 AM EDT [facility] ([facility]) Hemoglobin 13.0 13.0 - 17.0 g/dL 08/20/2024 5:36 AM EDT [facility] ([facility]) Hematocrit 40.3 39.0 - 50.0 % 08/20/2024 5:36 AM EDT [facility] ([facility]) MCV 92.0 82.0 - 98.0 fL 08/20/2024 5:36 AM EDT [facility] ([facility]) MCH 29.7 27.0 - 33.0 pg 08/20/2024 5:36 AM EDT [facility] ([facility]) MCHC 32.3 32.0 - 35.0 g/dL 08/20/2024 5:36 AM EDT [facility] ([facility]) RDW 16.2(H) 11.5 - 15.0 % 08/20/2024 5:36 AM EDT [facility] ([facility]) Neutrophils % 68.1 40.0 - 72.0 % 08/20/2024 5:36 AM EDT [facility] ([facility]) Lymphocytes % 21.1 20.0 - 45.0 % 08/20/2024 5:36 AM EDT [facility] ([facility]) Monocytes % 6.7 5.0 - 12.0 % 08/20/2024 5:36 AM T [facility] ([facility]) Eosinophils % 2.4 0.0 - 6.0 % 08/20/2024 5:36 AM T [facility] ([facility]) Basophils % 1.3(H) 0.0 - 1.0 % 08/20/2024 5:36 AM T [facility] ([facility]) Neutrophils Absolute 6.04 1.60 - 7.60 10*3/uL 08/20/2024 5:36 AM T [facility] ([facility]) Lymphocytes Absolute 1.88 1.20 - 4.00 10*3/uL 08/20/2024 5:36 AM T [facility] ([facility]) Monocytes Absolute 0.60 0.10 - 1.00 10*3/uL 08/20/2024 5:36 AM T [facility] ([facility]) Eosinophils Absolute 0.21 0.00 - 0.50 10*3/uL 08/20/2024 5:36 AM EDT [facility] ([facility]) Basophils Absolute 0.12 0.00 - 0.20 10*3/uL 08/20/2024 5:36 AM T [facility] ([facility]) Platelets 232 150 - 400 10*3/uL 08/20/2024 5:36 AM T [facility] ([facility]) nRBC % 0.0 0 % 08/20/2024 5:36 AM EDT [facility] ([facility]) Immature Granulocytes % 0.4 0.0 - 1.0 % 08/20/2024 5:36 AM EDT [facility] ([facility]) Immature Granulocytes Absolute 0.04 0.00 - 0.20 10*3/uL 08/20/2024 5:36 AM EDT [facility] ([facility]) Blood Venous blood specimen / Unknown Venipuncture / Unknown 08/20/2024 4:25 AM EDT 08/20/2024 5:19 AM EDT Srinivas Vuong MD LAB BLOOD ORDERABLE S [facility] ([facility]) [address] [place] [address] from Last 3 Months Advance Directives * Full Code (Latest Code Status on File) Date Activated Date Inactivated Comments 08/20/2024 2:26 AM 08/22/2024 4:25 PM Care Teams Applications Manager Relationship Specialty Start Date End Date Gutierrez Morton DO [address] [place] [id number] PCP - General Internal Medicine 08/20/24
--- OUTSIDE RECORDS SUMMARY | 2024-09-14 08:13 | XMS_ITS | Clinical Summary ---
Author Organization [facility] Address [address] [place] [address] Care Team Providers Care Mine Captain Name Role Phone Gutierrez Morton DO Primary Care Provider [phone] Allergies Active Allergy Reactions Criticality Noted Date [...] total knee replacement using cement, bilateral 07/26/2020 Encounters Date Type Department Care Team Description 08/25/2024 9:00 AM EDT Office Visit [facility] [place] [address] [place] [address] Ling Hdz CNP PVC (premature ventricular contraction) (Primary Dx); Atypical atrial flutter (CMS/HCC); Dyspnea on exertion; NSVT (nonsustained ventricular tachycardia) (CMS/HCC); ALEXANDRA (obstructive sleep apnea); Primary hypertension; S/P ablation of atrial flutter 08/21/2024 1:05 PM EDT - 08/21/2024 3:05 PM EDT Surgery [facility] V[facility] [address] [place] [phone] Jayro Wright MD Ablation atrial flutter [[id number]] 08/20/2024 1:53 AM EDT - 08/22/2024 2:24 PM EDT Hospital Encounter [facility] [address] [place] [phone] Dwight Cody MD Iqbal, Amna, MD Omar, Muhammad, MD Okoro, Bonaventure, MD V-tach (CMS/HCC) (Primary Dx); Atrial flutter, unspecified type (CMS/HCC); Atypical atrial flutter (CMS/HCC) Discharge Disposition: Home or Self Care () 08/20/2024 Travel from Last 3 Months Family History Relation Name Status Comments Father Mother Social History Tobacco Use Types Packs/Day Years Used Date Smoking Tobacco: Former Cigarettes Smokeless Tobacco: Never Tobacco Cessation:Counseling Given: Not Answered Alcohol Use Standard Drinks/Week Comments Not Currently 0 (1 standard drink = 0.6 oz pur e alcohol) [facility] Utilities Answer Date Recorded In the past [...] any time in the past 12 m [facility], were you homeless or living in a retirement (including now)? No 08/20/2024 Hunger Vital Sign [...] AM EDT Sexual Orientation Don't know 08/20/2024 9: 17 AM EDT Last Filed Vital Signs Vital [...] Description 10/27/2024 1:45 PM EDT Office Visit [facility] [address] [place] [address] Magdy Phoenix MD [address] [place] [address] Health Maintenance Due Date Last Done Comments CT Colonography 1950 Colonoscopy 1950 Colorectal Cancer Screening 1950 FIT-DNA 1950 FIT 1950 FOBT 1950 Medicare Annual Wellness (AWV) 1950 Sigmoidoscopy 1950 Depression Screening 1962 Adult Tetanus 1972 Zoster Vaccines (1 of 2) 2000 Pneumococcal Vaccine: 65+ Ye ars (2 of 2 - PPSV23 or PCV20) 05/13/2019 05/13/2018 COVID-19 Vaccine (1 - 2023-2 5 season) 2023 Influenza Vaccine (Season Ended) 2024 Fall Risk Screening 08/22/2025 08/22/2024 HIB Vaccines Aged Out No longer eligi ble based on patient's age to complete this topic HPV Vaccines Aged Out No longer eligi ble based on patient's age to complete this topic IPV Vaccines Aged Out No longer eligi ble based on patient's age to complete this topic Meningococcal B Vaccine Aged Out No l onger eligible based on patient's age to complete this topic Meningococcal Vaccine Aged Out No irineo palmira eligible based on patient's age to complete this topic Rotavirus Vaccines Aged Out No longer eligible based on patient's age to complete this topic Procedures Procedure Name Priority Date/Time Associated Diagnosis [...] performed (08/25/2024 8:59 AM EDT) Ling Hdz NURSE INFECTION CONTROL ECG ORDERABLES * LIMITED ECHO (TTE) (08/22/2024 9:03 AM EDT) Anatomical Region Laterality Modality Other 08/22/2024 8:58 AM EDT Narrative 08/22/2024 10:23 AM EDT 1 [facility] Heart Station [address] [place] [place] [address] [phone] (fax) Echocardiogram-[facility] Name: REBECA NICOLE Study Date: 08/22/2024 08:58 AM B/P: 153 mmHg/80 mmHg HR: Date of : 1950 Location: [facility] Height: 75 in. Age: 74 year(s) Patient Room: [facility] Weight: 296 lb. Gender: Male Patient Status: [...] reviewed the examination Procedure Staff Reading Group: [facility] Vice President Of Advertising: Junior Aguilar RDCS Ordering Physician: JAYRO WRIGHT Procedure Note Mehdi Pat MD - 08/22/2024 1 1 [facility] Heart Station [address] [place] [address] [phone] (fax) Echocardiogram-[facility] Name: REBECA NICOLE Study Date: 08/22/2024 08:58 AM B/P: 153 mmHg/80 mmHg HR: Date of : 1950 Location: [facility] Height: 75 in. Age: 74 year(s) Patient Room: 316 Weight: 296 lb. Gender: Male Patient Status: [...] reviewed the examination Procedure Staff Reading Group: [facility] Vice President Of Advertising: Junior Aguilar RDCS Ordering Physician: JAYRO WRIGHT Jayro Wright MD CV ECHO PROCEDURES * (ABNORMAL) CBC (08/22/2024 7:09 AM EDT) Auto WBC 9.06 4.00 - 10.60 10*3/uL 08/22/2024 8:24 AM EDT [facility] RBC 4.46 4.20 - 5.70 10*6/uL 08/22/2024 8:24 AM EDT [facility] ([facility] Hemoglobin 13.3 13.0 - 17.0 g/dL 08/22/2024 8:24 AM EDT [facility] ([facility]) Hematocrit 41.2 39.0 - 50.0 % 08/22/2024 8:24 AM EDT [facility] ([facility]) MCV 92.4 82.0 - 98.0 fL 08/22/2024 8:24 AM EDT [facility]) MCH 29.8 27.0 - 33.0 pg 08/22/2024 8:[address] [facility]) MCHC 32.3 32.0 - 35.0 g/dL 08/22/2024 8:24 AM EDT [facility] ([facility]) RDW 16.2(H) 11.5 - 15.0 % 08/22/2024 8:24 AM EDT [facility] ([facility]) Platelets 241 150 - 400 10*3/uL 08/22/2024 8:24 AM EDT [facility] ([facility]) Blood Venous blood specimen / Unknown Venipuncture / Unknown 08/22/2024 7:09 AM EDT 08/22/2024 8:00 AM EDT Anika Quintanilla MD LAB BLOOD ORDERABLES [facility]) [address] [place] [address] * Magnesium (08/22/2024 7:09 AM EDT) Magnesium 2.2 1.9 - 2.7 mg/dL 08/22/2024 8:[address] [facility]) Blood Venous blood specimen / Unknown Venipuncture / Unknown 08/22/2024 7:09 AM EDT 08/22/2024 7:59 AM EDT Anika Quintanilla MD LAB BLOOD ORDERABLES [facility] ([facility] [address] [place] [address] * (ABNORMAL) Comprehensive metabolic panel (08/22/2024 7:09 AM EDT) Only the most recent of2 resultswithin the time period is included. Sodium 140 136 - 145 mmol/L 08/22/2024 8:22 AM EDT [facility] ([facility]) Potassium 4.3 3.5 - 5.1 mmol/L 08/22/2024 8:22 AM EDT [facility] ([facility]) Chloride 107 98 - 107 mmol/L 08/22/2024 8:22 AM EDT [facility] ([facility]) CO2 29 21 - 31 mmol/L 08/22/2024 8:22 AM EDT [facility] ([facility]) Anion Gap 8 7 - 20 mmol/L 08/22/2024 8:22 AM EDT [facility] ([facility]) BUN 16 7 - 25 mg/dL 08/22/2024 8:22 AM EDT [facility] ([facility]) Creatinine 1.07 0.70 - 1.30 mg/dL 08/22/2024 8:22 AM EDT [facility] ([facility]) BUN/Creatinine Ratio 15.0 08/06 8:22 AM EDT [facility] ([facility]) Glucose 97 70 - 100 mg/dL 08/22/2024 8:22 AM EDT [facility] ([facility]) Calcium 8.5(L) 8.6 - 10.3 mg/dL 08/22/2024 8:22 AM EDT [facility] ([facility]) AST 15 13 - 39 U/L 08/22/2024 8:22 AM EDT [facility] ([facility]) ALT (SGPT) 12 7 - 52 U/L 08/22/2024 8:22 AM EDT [facility] ([facility]) Alkaline Phosphatase 57 34 - 104 U/L 08/22/2024 8:22 AM EDT [facility] ([facility]) Total Protein 6.7 6.0 - 8.3 g/dL 08/22/2024 8:22 AM EDT [facility] ([facility]) Albumin 3.6 3.5 - 5.7 g/dL 08/22/2024 8:22 AM EDT [facility] ([facility]) Total Bilirubin 0.5 0.3 - 1.0 mg/dL 08/22/2024 8:22 AM EDT [facility] ([facility]) eGFR 72.8 >60.0 mL/min/1. 73m*2 08/22/2024 8:22 AM EDT [facility] ([facility]) Comment:[facility] s estimated glomerular filtration rate (eGFR) [...] EDT Anika Quintanilla MD LAB BLOOD ORDERABLES [facility] ([facility]) [address] [place] [address] * ECG 12 lead (08/21/2024 4:38 PM EDT) Only the most recent of2 resultswithin the time period is included. Ventricular Rate 62 BPM GE MUSE Atrial Rate 62 BPM GE MUSE WI Interval 186 ms GE MUSE QRS DURATION 114 ms GE MUSE QT Interval 454 ms GE MUSE QTC CALCULATION(BAZE TT) 460 ms GE MUSE P [place] 107 degrees GE MUSE R-[place] -22 degrees GE MUSE T Wave [place] 21 degrees GE MUSE 08/21/2024 4:33 PM [...] perforation, heart block necessitating pacemaker insertion, stroke, [place] and were among those discussed. Alternatives were [...] perforation, heart block necessitating pacemaker insertion, stroke, [place] and were among those discussed. Alternatives were [...] isthmus dependent atrial flutter. 3 D mapping (Biosense Jo), was used to create the right [...] Activated Clotting Time (08/21/2024 3:55 PM EDT) POCT ACT 216(A) 82 - 152 seconds QC Pass/Fail Passed QC LOT # 8 QC Expiration Date 73,125 Blood Venous blood specimen / Unknown 08/21/2024 3:55 PM EDT Narrative Ron Aguiar ODESSA - 08/25/2024 7:39 AM EDT Qc lot [id number]; pure culture operator [id number] Jayro Wright MD POINT OF CARE TEST E NTER/EDIT ORDERABLES * COMPLETE ECHO (TTE) W/ IMAGING AGENT (08/20/2024 3:00 PM EDT) Anatomical Region Laterality Modality Other 08/20/2024 2:24 PM EDT Narrative 08/20/2024 5:26 PM EDT 1 1 [facility] Heart Station [address] [place] [address] [phone] (fax) Echocardiogram-[facility] Name: REBECA NICOLE Study Date: 08/20/2024 02:24 PM B/P: 125 mmHg/96 mmHg HR: 57 bpm Date of : 1950 Location: [facility] Height: 78 in. Age: 74 year(s) Patient Room: [facility] Weight: 310 lb. Gender: Male Patient Status: [...] small pericardial effusion. Procedure Staff Reading Group: [facility] Vice President Of Advertising: MARLA Chan Ordering Physician: MYRNA RAMOS Procedure Note Horace Gross MD - 08/20/2024 1 1 [facility] Heart Station [address] [place] [address] [phone] (fax) Echocardiogram-[facility] Name: REBECA NICOLE Study Date: 08/20/2024 02:24 PM B/P: 125 mmHg/96 mmHg HR: 57 bpm Date of : 1950 Location: [facility] Height: 78 in. Age: 74 year(s) Patient [...] small pericardial effusion. Procedure Staff Reading Group: [facility] Vice President Of Advertising: MARLA Chan Ordering Physician: MYRNA RAMOS Myrna Ramos MD CV ECHO PROCEDURES * High Sensitivity Troponin I (08/20/2024 4:25 AM EDT) High Sensitivity Troponin I 5 <20 ng/L 08/20/2024 5:52 AM EDT [facility] ([place]) Blood Venous blood specimen / Unknown Venipuncture / Unknown 08/20/2024 4:25 AM EDT 08/20/2024 5:18 AM EDT Srinivas Vuong MD LAB BLOOD ORDERABLE S [facility] ([facility] [address] [place] [address] * (ABNORMAL) CBC auto differential (08/20/2024 4:25 AM EDT) Auto WBC 8.89 4.00 - 10.60 10*3/uL 08/20/2024 5:36 AM EDT [facility] RBC 4.38 4.20 - 5.70 10*6/uL 08/20/2024 5:36 AM EDT [facility] ([facility]) Hemoglobin 13.0 13.0 - 17.0 g/dL 08/20/2024 5:36 AM EDT [facility] ([facility]) Hematocrit 40.3 39.0 - 50.0 % 08/20/2024 5:36 AM EDT [facility] ([facility]) MCV 92.0 82.0 - 98.0 fL 08/20/2024 5:36 AM EDT [facility] ([facility]) MCH 29.7 27.0 - 33.0 pg 08/20/2024 5:36 AM EDT [facility]) MCHC 32.3 32.0 - 35.0 g/dL 08/20/2024 5:36 AM EDT [facility]) RDW 16.2(H) 11.5 - 15.0 % 08/20/2024 5:36 AM EDT [facility] ([facility]) Neutrophils % 68.1 40.0 - 72.0 % 08/20/2024 5:36 AM EDT [facility] Lymphocytes % 21.1 20.0 - 45.0 % 08/20/2024 5:36 AM EDT [facility] Monocytes % 6.7 5.0 - 12.0 % 08/20/2024 5:36 AM EDT [facility] Eosinophils % 2.4 0.0 - 6.0 % 08/20/2024 5:36 AM EDT [facility] Basophils % 1.3(H) 0.0 - 1.0 % 08/20/2024 5:36 AM EDT [facility] Neutrophils Absolute 6.04 1.60 - 7.60 10*3/uL 08/20/2024 5:36 AM EDT [facility]) Lymphocytes Absolute 1.88 1.20 - 4.00 10*3/uL 08/20/2024 5:36 AM EDT [facility] Monocytes Absolute 0.60 0.10 - 1.00 10*3/uL 08/20/2024 5:36 AM EDT [facility] Eosinophils Absolute 0.21 0.00 - 0.50 10*3/uL 08/20/2024 5:36 AM EDT [facility] Basophils Absolute 0.12 0.00 - 0.20 10*3/uL 08/20/2024 5:36 AM EDT [facility] Platelets 232 150 - 400 10*3/uL 08/20/2024 5:36 AM EDT [facility] nRBC % 0.0 0 % 08/20/2024 5:36 AM EDT [facility] Immature Granulocytes % 0.4 0.0 - 1.0 % 08/20/2024 5:36 AM EDT [facility] Immature Granulocytes Absolute 0.04 0.00 - 0.20 10*3/uL 08/20/2024 5:36 AM EDT [facility] Blood Venous blood specimen / Unknown Venipuncture / Unknown 08/20/2024 4:25 AM EDT 08/20/2024 5:19 AM EDT Srinivas Vuong MD LAB BLOOD ORDERABLE S [facility] [address] [place] [address] from Last 3 Months Advance Directives * Full Code (Latest Code Status on File) Date Activated Date Inactivated Comments 08/20/2024 2:26 AM 08/22/2024 4:25 PM Care Teams Mine Captain Relationship Specialty Start Date End Date Gutierrez Morton DO [address] [place] [address] PCP - General Internal Medicine 08/20/24
--- OUTSIDE RECORDS SUMMARY | 2024-09-14 08:27 | XMS_ITS | CCD ---
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 Name Role Phone ADAM BRENNON SANDY (RES) Attending Unavailable Reji Roy Unavailable DO Gutierrez Larry Primary Care Provider MD Reji Roy Attending Provider Reji Roy Admitting Unavailable Reji Roy Attending Unavailable Gutierrez Larry Primary Care Unavailable Reji Roy Admitting Unavailable Reji Roy Attending Unavailable Gutierrez Larry Primary Care Unavailable Reji Roy Admitting Unavailable Reji Roy Attending Unavailable Gutierrez Larry Primary Care Unavailable BALL, DR BRIDGES Primary Care Unavailable BALL, DR BRIDGES Admitting Unavailable BALL, DR BRIDGES Attending Unavailable BALL, DR BRIDGES Consulting Unavailable BALL, DR BRIDGES Primary Care Unavailable BALL, DR BRIDGES Admitting Unavailable BALL, DR BRIDGES Attending Unavailable BALL, DR BRIDGES Primary Care Unavailable MISC, DR DO Admitting Unavailable MISC, DR DO Attending Unavailable MISC, DR DO Consulting Unavailable LARON, DR BRIDGES Primary Care Unavailable MISC, DR DO Admitting Unavailable MISC, DR DO Attending Unavailable MISC, DR DO Consulting Unavailable Gutierrez Larry Unavailable LAN CHO Attending Unavailable CATHERINE AYOUB P Referring Unavailable GUTIERREZ LARRY Primary Care Unavailable Gutierrez Larry MD Primary Care Provider Gutierrez Larry DO Primary Care Provider CATHERINE AYOUB P Attending Unavailable GUTIERREZ LARRY E Referring Unavailable GUTIERREZ LARRY Primary Care Unavailable ANITRA CATHERINE P Attending Unavailable GUTIERREZ LARRY E Referring Unavailable GUTIERREZ LARRY Primary Care Unavailable ANITRA CATHERINE P Attending Unavailable GUTIERREZ LARRY E Referring Unavailable GUTIERREZ LARRY Primary Care Unavailable ANITRA CATHERINE P Attending Unavailable ANITRA CATHERINE P Referring Unavailable BALL, GUTIERREZ E Primary Care Unavailable BALL, GUTIERREZ E Referring Unavailable BALL, GUTIERREZ E Primary Care Unavailable ANITRA, CATHERINE P Attending Unavailable BALL, GUTIERREZ E Referring Unavailable BALL, GUTIERREZ E Primary Care Unavailable ANITRA, CATHERINE P Attending Unavailable BALL, GUTIERREZ E Referring Unavailable BALL, GUTIERREZ E Primary Care Unavailable SHEYLA WAY Attending Unavailable BALL, GUTIERREZ E Referring Unavailable BALL, GUTIERREZ E Primary Care Unavailable ANITRA, CATHERINE P Attending Unavailable BALL, GUTIERREZ E Referring Unavailable BALL, GUTIERREZ E Primary Care Unavailable ANITRA, CATHERINE P Attending Unavailable BALL, GUTIERREZ E Referring Unavailable BALL, GUTIERREZ E Primary Care Unavailable ANITRA, CATHERINE P Attending Unavailable BALL, GUTIERREZ E Referring Unavailable BALL, GUTIERREZ E Primary Care Unavailable ANITRA, CATHERINE P Attending Unavailable BALL, GUTIERREZ E Referring Unavailable BALL, GUTIERREZ E Primary Care Unavailable ANITRA, CATHERINE P Attending Unavailable BALL, GUTIERREZ E Referring Unavailable BALL, GUTIERREZ E Primary Care Unavailable RUSHER, MORALES S Attending Unavailable RUSHER, MORALES S Attending Unavailable RUSHER, MORALES S Attending Unavailable RUSHER, MORALES S Attending Unavailable RUSHER, MORALES S Attending Unavailable RUSHER, MORALES S Attending Unavailable RUSHER, MORALES S Attending Unavailable ADARSH, HAIM Referring Unavailable ADARSH, HAIM Referring Unavailable MARIA EUGENIA, ALIS Referring Unavailable SHILO, ANU T Referring Unavailable CARLITO, BONAVENTURE Admitting Unavailable CHEVY LUGO Attending Unavailable YESSENIA DELCID Attending Unavailable CARLITO, BONAVENTURE Referring Unavailable RAMOS, MALIKA Referring Unavailable Allergies Allergy Classification Reported Allergen(s) Allergy Type Date of Onset Reaction(s) Facility (20 sources) Doxycycline; Translations: [DOXYCYCLINE] Drug Allergy 07-02-19 19 Hives, [facility] (20 sources) predniSONE; Translations: [prednisone] Drug Allergy 05-22-19 [facility] (6 sources) Sulfamethoxazole / Trimethoprim Drug Allergy Unknown [facility] Other (20 sources) Tetracycline Drug Allergy 02-19-20 [facility] (7 sources) Sulfonamides (Antibiotic); Translations: [Sulfa (Sulfonamide Antibiotics)] Allergy to substance 05-22-19 [facility] (1 source) Doxycycline Drug Allergy 05-22-19 [facility] (1 source) Doxycycline Drug Allergy [facility] (1 source) Sulfamethoxazole / Trimethoprim Drug Allergy [facility] (1 source) Sulfonamides (Antibiotic) Drug allergy (disorder) [facility] (1 source) corticosteroid and/or corticosteroid derivative (FN) Drug allergy Unknown [facility] Other (1 source) patient allergy list reviewed by nurse or physicia Propensity to adverse reactions 05-17-19 15 Comment:Done [employer] [facility] Other (4 sources) Corticosteroids Allergy to substance 09-16-19 Unknown Reaction [facility] (4 sources) Sulfamethoxazole Drug Allergy 09-16-19 24 Unknown Reaction [facility] (4 sources) Trimethoprim Drug Allergy 09-16-19 Unknown Reaction [facility] (20 sources) Sulfamethoxazole / Trimethoprim; Translations: [SULFAMETHOXAZOLE-T RIMETHOPRIM] Drug Allergy 07-02-19 19 Rash, Unknown [facility] (14 sources) Latex Propensity to adverse reactions 02-17-20 Rash [facility] (2 sources) natural latex rubber; Translations: [LATEX, NATURAL RUBBER] Propensity to adverse reactions to drug (disorder) 02-17-20 [facility] Rep[facility] Medications Current Medications Medication Drug Class(es) Dates Sig (Normalized) Sig (Original) apixaban 5 mg oral tablet (1 source) Factor Xa Inhibitor Start: 08-23-2024 take 1 tablet by mouth twice daily Apixaban 5 mg tablet Active 5 MG PO Twice daily 60 30 August 23, 2024 12:00am azithromycin 250 mg oral tablet (6 sources) Macrolide Antimicrobial Start: 08-28-2024 take 2 tablets by mouth every other day Azithromycin (Zithromax) 250 mg tablet Active 250 MG PO .QOD August 28, 2024 12:00am start on day 2 of therapy Start: 07-28-2024 End: 08-23-2024 take 1 tablet by mouth every other day Azithromycin 250 mg tablet Discontinued 250 MG PO .QOD July 28, 2024 12:00am August 23, 2024 6:35pm Start: 07-07-2020 End: 12-04-2023 Azithromycin 250 MG as direc destin Orally daily for 5 days Jul, Active cholecalciferol 0.05 mg oral capsule (9 sources) Vitamin D cholecalciferol (Vitamin D-3) 50 MCG (1999) capsule 2,000 Units. Active diazePAM 10 mg oral tablet (1 source) Benzodiazepine Start: End: take 1 tablet by mouth once diazePAM (VALIUM) 10 mg tablet Indications: Pre-operative anxiety , Venous stasis ulcer of left ankle limited to breakdown of skin with varicose veins (CMS-HCC) Take 1 tablet (10 mg total) by mouth once for 1 dose. Take to office for procedure (Do not take until instructed by staff) 1 tablet 02/28/2024 02/28/2024 Active gentamicin 0.001 mg/mg topical ointment (16 sources) Start: End: gentamicin (GARAMYCIN) 0.1 % ointment Indications: Venous stasis ulcer of left ankle limited to breakdown of skin with varicose veins (CMS-HCC) Apply topically once daily 15 g 02/14/2024 02/26/2024 Discontinued (Therapy completed) 24 hr metoprolol succinate 25 mg extended release oral tablet (1 source) beta-Adrenergic Jaylin Start: take 1 tablet by mouth once daily Metoprolol Succinate 25 mg tablet extended release 24 hr Active 25 MG PO Daily 30 August 23, 2024 12:00am Misc Natural Products (PROSTATE SUPPORT PO) (9 sources) Misc Natural Pro ducts (PROSTATE SUPPORT PO) Take by mouth Active Neuriva (5 sources) Start: take 1 capsule by mouth once daily at bedtime Neuriva Active 1 CAP PO Daily at bedtime October 12, 2019 12:00am Start: 10-12-2019 take 1 capsule by [facility] once daily at bedtime Neuriva Active 1 CAP PO Daily at bedtime October 11, 2019 11:00pm omeprazole 40 mg delayed release oral capsule (20 sources) Proton Pump Inhibitor Start: 05-23-2021 End: 08-04-2024 take 1 capsule by mouth once daily Omeprazole 40 mg capsule,delayed release(DR/EC) Active 40 MG PO Daily 90 90 August 04, 2024 8:47am take 1 capsule by [facility] once daily before breakfast omeprazole (PriLOSEC) 10 mg capsule Take 1 capsule (10 mg total) by mouth every morning before breakfast. Active Prevagen (6 sources) Prevagen Active tiZANidine 4 mg oral tablet (13 sources) Central alpha-2 Adrenergic Agonist Start: 09-16-19 take 1 tablet by mouth once daily at bedtime as needed Tizanidine 4 mg tablet Active 4 MG PO Daily at bedtime as needed for muscle spasticity 02 04September 16, 2023 12:00am triamcinolone acetonide 1 mg/ml topical cream (9 sources) Corticosteroid Start: 02-19-20 End: 04-10-19 triamcinolone (KENALOG) 0.1 % cream Indications: Venous stasis ulcer of left ankle limited to breakdown of skin with varicose veins (CMS-HCC) Once daily application, apply a thin layer daily to left lower leg 30 g 02/19/2024 04/10/2024 Discontinued (Therapy completed) Start: 02-19-2024 1 Application, topical, As needed, irritation, Starting on Sat02/19/24 at 0842, Apply to affected area. Start: 02-05-2024 End: 02-05-2024 1 Application, topical, As n eeded, irritation, Starting on Sat02/05/24 at 0841, Apply to affected area. Start: 01-22-2024 1 Application, topical, As needed, irritation, Starting on Sat01/22/24 at 0832, Apply to affected area. Completed/Discontinued Medications Medication Drug Class(es) Dates Sig (Normalized) Sig (Original) acetaminophen 325 mg / oxyCODONE hydrochloride 5 mg oral tablet (5 sources) Opioid Agonist Start: 02-19-2019 End: 03-04-2019 take 2 tablets by mouth every six hours as needed for pain Oxycodone-Acetamino phen 5-325 mg tablet Discontinued 2 TAB PO Q6H as needed for Pain February 19, 2019 1:00am March 04, 2019 10:19am amoxicillin 500 mg oral capsule (6 sources) Penicillin-class Antibacterial Start: 02-13-2024 End: 07-27-2024 Amoxicillin 500 mg capsule Discontinued 2000 MG PO As Directed February 19, 2024 1:29pm July 27, 2024 10:00pm betamethasone 0.0005 mg/mg topical ointment (1 source) Corticosteroid Start: 07-07-2020 End: 12-04-2023 betamethasone dipropionate (DIPROLENE) 0.05 % ointment APPLY TO AFFECTED AREA OF ITCHY SKIN TWICE A DAY 07/07/2020 12/04/2023 Discontinued (Therapy completed) cephalexin 500 mg oral capsule (10 sources) Cephalosporin Antibacterial Start: 10-19-2019 End: 05-22-2021 take 1 capsule by mouth every eight hours as needed Cephalexin (Keflex) 500 mg capsule Discontinued 500 MG PO Q8H as needed for eczema flair January 25, 2020 5:09pm May 22, 2021 4:10pm coffee/theanine/supe roxide dis (NEURIVA DE-STRESS ORAL) (1 source) End: 12-04-2023 coffee/theanine/sup eroxide dis (NEURIVA DE-STRESS ORAL) Take by mouth. 12/04/2023 Discontinued (Therapy completed) cyclobenzaprine hydrochloride 10 mg oral tablet (5 sources) Muscle Relaxant Start: 03-04-2019 End: 09-10-2019 take 1 tablet by mouth three times daily as needed for muscle spasms Cyclobenzaprine 10 mg tablet Discontinued 10 MG PO Three times daily as needed for back spasms 50 March 04, 2019 1:00am September 10, 2019 11:14am ammonium lactate 120 mg/ml topical cream (4 sources) Start: 07-28-2024 End: 08-28-2024 Ammonium Lactate 12 % cream Discontinued APPLIC TOPICAL July 28, 2024 12:00am August 28, 2024 9:25am Start: 2024 End: 2025 ammonium lactate (Amlactin) 12 % cream Indications: Corns and callosities Apply topically Daily 140 g 3 2024 2025 Active Lactobacillus Comb No.10 (Probiotic) 20 billion cell Capsule (5 sources) Start: 02-19-2019 End: 09-10-2019 take 1 tablet by mouth once daily Lactobacillus Comb No.10 (Probiotic) 20 billion cell Capsule Discontinued 1 TAB PO Daily February 19, 2019 1:00am September 10, 2019 11:15am Digestive Advantage Start: 02-19-2019 End: 09-10-2019 take 1 tablet by mouth once daily Lactobacillus Comb No.10 (Probiotic) 20 billion cell Capsule Discontinued 1 TAB PO Daily February 19, 2019 12:00am September 10, 2019 10:15am [employer]vant[employer] lidocaine 25 mg/ml / prilocaine 25 mg/ml topical cream (1 source) Antiarrhythmic, Amide Local Anesthetic Start: 12-18-2023 End: 12-18-2023 1 Application, topical, Once, On Sat12/18/23 at 0930, For 1 dose, If no allergy, apply topically to wounds with each wound care appointment with practitioner for pain control. melatonin 5 mg oral tablet (20 sources) Start: 02-19-2019 End: 09-16-2023 take 2 tablets by mouth at bedtime as needed for sleep Melatonin 5 mg Tablet,Chewable Discontinued 10 MG PO Bedtime as needed for Sleep February 19, 2019 1:00am September 16, 2023 10:10am Start: 02-19-2019 End: 09-16-2023 take 10 mg by mouth at bedtime Melatonin Discontinued 10 MG PO Bedtime February 19, 2019 1:00am September 16, 2023 10:10am melatonin 5 mg t ablet,chewable Chew and swallow. Active minocycline 100 mg oral capsule (20 sources) Tetracycline-class Drug Start: 06-10-2023 End: 07-28-2024 take 1 capsule by mouth once daily Minocycline 100 mg capsule Discontinued 0 .ROUTE .COMPLEX December 05, 2023 9:58am July 28, 2024 10:57am TAKE 1 CAPSULE BY MOUTH EVERY DAY Start: 05-28-2022 take 1 capsule by mo ut once daily Minocin 100 MG 1 capsule Orally daily for 30 days May, Active Start: 05-22-2021 End: 06-10-2023 take 1 capsule by mouth twice daily Minocycline 100 mg capsule Discontinued 100 MG PO Twice daily May 22, 2021 1:00am June 10, 2023 1:37pm Multivitamin preparation (2 sources) Start: 09-10-2019 End: 01-25-2020 take 1 tablet by mouth once daily Multivitamin Discontinued 1 TAB PO Daily September 10, 2019 12:00am January 25, 2020 5:08pm Start: 09-10-2019 End: 01-25-2020 take 1 tablet by mouth once daily Multivitamin Discontinued 1 TAB PO Daily September 09, 2019 11:00pm January 25, 2020 4:08pm Multivitamin Tablet,Chewable (3 sources) Start: 09-10-2019 End: 01-25-2020 take 1 tablet by mouth once daily Multivitamin Tablet,Chewable Discontinued 1 TAB PO Daily September 10, 2019 12:00am January 25, 2020 5:08pm oxyCODONE hydrochloride 5 mg oral capsule (10 sources) Opioid Agonist Start: 10-19-2019 End: 05-22-2021 take 5-10 mg by mouth every six hours as needed for pain Oxycodone 5 mg capsule Discontinued 5 - 10 MG PO Q6H as needed for pain 30 8 October 19, 2019 May 22, 2021 4:10pm Start: 03-04-2019 End: 09-10-2019 take 5-10 mg by mouth every six hours as needed for pain Oxycodone 5 mg capsule Discontinued 5 - 10 MG PO Q6H as needed for pain 60 8 March 04, 2019 September 10, 2019 11:15am Problems Active Problems Problem Classification Problem Date Documented Da te Episodic/Chronic Acute bronchitis (2 sources) Acute bronchitis due to other specified organisms; Translations: [Acute bronchitis] Episodic Allergic reactions (6 sources) Atopic dermatitis; Translations: [Other atopic dermatitis] Chronic Allergic reactions (3 sources) Nummular eczema; Translations: [Nummular dermatitis] Onset: 07-11-2018 02-19-2024 Episodic Anxiety disorders (1 source) Anxiety about treatment; Translations: [Generalized anxiety disorder] 02-28-2024 Chronic Calculus of urinary tract (3 sources) Ureteric stone; Translations: [Calculus of ureter] Onset: 10-22-2018 Episodic Cardiac dysrhythmias (10 sources) Ventricular premature depolarization; Translations: [Unspecified atrial flutter] Onset: 08-20-2024 Chronic Comment on above: Holter: 07/2024- fast est rate 211, slowest rate 40- Ventricular ectopy burden < 1%- 9 episodes of VT w/ longest duration of 10 beats- SVE burden of 6%- 1,158 PSVT w/ fastest rate 211 bpm and longest duration 6min 11sec. Cardiac dysrhythmias (5 sources) Palpitations; Translations: [Palpitations] 07-27-2024 Episodic Chronic ulcer of skin (7 sources) Ankle ulcer; Translations: [Ulcer of ankle] Onset: 04-10-2018 01-22-2024 Chronic Conditions associated with dizziness or vertigo (1 source) Benign paroxysmal positional vertigo; Translations: [Benign paroxysmal vertigo, bilateral] Episodic Deficiency and other anemia (1 source) Chronic anemia; Translations: [Anemia in other chronic diseases classified elsewhere] Chronic Diabetes mellitus without complication (6 sources) Impaired fasting glucose; Translations: [Impaired fasting glycemia] Onset: 06-04-2022 Episodic Disorders of lipid metabolism (2 sources) Pure hypercholesterolemia ; Translations: [Pure hypercholesterolemia , unspecified] Onset: 05-01-2018 Chronic Esophageal disorders (20 sources) Stricture of esophagus; Translations: [Esophageal obstruction] Onset: 05-31-2022 Chronic Esophageal disorders (6 sources) Esophagitis; Translations: [Esophagitis] Episodic Esophageal disorders (1 source) Esophageal disorders; Translations: [Gastro-esophageal reflux disease with esophagitis, without bleeding] Essential hypertension (2 sources) Hypertensive disorder; Translations: [Essential (primary) hypertension] 08-27-2024 Chronic Genitourinary symptoms and ill-defined conditions (5 sources) Nocturia; Translations: [Nocturia] Episodic Hyperplasia of prostate (20 sources) Nocturia due to benign prostatic hypertrophy; Translations: [Benign prostatic hyperplasia with lower urinary tract symptoms] Onset: 04-12-2016 Chronic Miscellaneous mental health disorders (1 source) Psychosexual dysfunction associated with inhibited sexual excitement; Translations: [Psychosexual dysfunction with inhibited sexual excitement] Onset: 05-15-2016 Chronic Mycoses (6 sources) Onychomycosis; Translations: [Tinea unguium] 02-17-2024 Episodic Osteoarthritis (16 sources) Localized, primary osteoarthritis of the wrist; Translations: [Primary osteoarthritis, right wrist] Onset: 05-15-2016 Chronic Osteoporosis (6 sources) Senile osteoporosis; Translations: [Age-related osteoporosis without current pathological fracture] Chronic Other acquired deformities (6 sources) Lumbar spondylolisthesis; Translations: [Spondylolisthesis, lumbar region] Episodic Other aftercare (2 sources) Other lobsterman (current) drug therapy; Translations: [OTH [facility] CURRENT DRUG THERAPY] Onset: 06-04-2022 Episodic Other circulatory disease (1 source) Elevated blood-pressure reading without diagnosis of hypertension; Translations: [Elevated blood-pressure reading, without diagnosis of hypertension] 08-23-2024 Episodic Comment on above: Echo: LVEF 55%, BARRY, enlarged RV w/ normal function, RVSP 41 - 08/2024 Other circulatory disease (1 source) Elevated blood-pressure reading, without diagnosis of hypertension; Translations: [Elevated blood pressure reading without diagnosis of hypertension] 07-28-2024 Episodic Other connective tissue disease (6 sources) History of repair of hip joint; Translations: [Presence of artificial hip joint, bilateral] Chronic Other connective tissue disease (1 source) Artificial knee joint present; Translations: [Presence of left artificial knee joint] Chronic Other connective tissue disease (19 sources) History of total hip arthroplasty; Translations: [Presence of artificial hip joint, bilateral] Onset: 07-26-2020 07-26-2020 Chronic Other connective tissue disease (19 sources) History of total knee arthroplasty; Translations: [Presence of artificial knee joint, bilateral] Onset: 07-26-2020 07-26-2020 Chronic Other connective tissue disease (6 sources) Neurogenic pain; Translations: [Neuralgia and neuritis, unspecified] Episodic Other connective tissue disease (1 source) Muscle wasting and atrophy, not elsewhere classified, left lower leg; Translations: [Muscle wasting and atrophy, not elsewhere classified, left lower leg] Episodic Other connective tissue disease (1 source) Disorder of soft tissue; Translations: [Other specified soft tissue disorders] Episodic Other connective tissue disease (6 sources) Pain in right foot; Translations: [Pain in right foot] 02-17-2024 Episodic Other connective tissue disease (2 sources) Pain in left foot; Translations: [Pain in left foot] 2024 Episodic Other diseases of veins and lymphatics (1 source) Venous ulcer of lower extremity due to chronic peripheral venous hypertension; Translations: [Chronic venous hypertension with ulcer] Onset: 04-10-2018 Chronic Other diseases of veins and lymphatics (6 sources) Stasis dermatitis; Translations: [Venous insufficiency (chronic) (peripheral)] Episodic Other diseases of veins and lymphatics (14 sources) Venous insufficiency of leg; Translations: [Venous insufficiency (chronic) (peripheral)] Onset: 02-03-2024 02-03-2024 Episodic Other ear and sense organ disorders (1 source) Otitis externa of right ear; Translations: [Other otitis externa, right ear] Chronic Other ear and sense organ disorders (1 source) Sensorineural hearing loss, bilateral; Translations: [Sensorineural hearing loss, bilateral] Chronic Other ear and sense organ disorders (1 source) Hearing loss; Translations: [Unspecified hearing loss, bilateral] Onset: 05-15-2016 Chronic Other ear and sense organ disorders (1 source) Impacted cerumen; Translations: [Impacted cerumen, right ear] Episodic Other gastrointestinal disorders (11 sources) Dysphagia; Translations: [Dysphagia, unspecified] 09-11-2019 Episodic Comment on above: Problem List clean-u p per request of Phys. EHR Cmte Other infections; including parasitic (1 source) H/O: infectious disease; Translations: [Personal history of other infectious and parasitic diseases] Episodic Other inflammatory condition of skin (6 sources) Rosacea; Translations: [Rosacea, unspecified] Onset: 12-26-2015 Chronic Other inflammatory condition of skin (1 source) Rosacea, unspecified Chronic Other injuries and conditions due to external causes (1 source) History of fall; Translations: [History of falling] Episodic Other lower respiratory disease (2 sources) Other forms of dyspnea; Translations: [Other forms of dyspnea] Onset: 08-25-2024 Episodic Other male genital disorders (2 sources) Impotence of organic origin; Translations: [Impotence of organic origin] Onset: 12-26-2015 Chronic Other nervous system disorders (6 sources) Polyneuropathy; Translations: [Polyneuropathy, unspecified] Chronic Other nervous system disorders (6 sources) Superficial peroneal neuropathy; Translations: [Lesion of lateral popliteal nerve, unspecified lower limb] Chronic Other nervous system disorders (1 source) Femoral neuropathy; 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] Onset: 12-03-2018 Chronic Other nervous system disorders (3 sources) Peripheral nerve disease ; Translations: [Polyneuropathy, unspecified] 10-23-2023 Chronic Other nervous system disorders (6 sources) Unsteady gait; Translations: [Unsteadiness on feet] Episodic Other nervous system disorders (6 sources) Paresthesia; Translations: [Paresthesia of skin] Episodic Other nutritional; endocrine; and metabolic disorders (5 sources) Body mass index 30+ - obesity; Translations: [Obesity, unspecified] Onset: 08-25-2013 Chronic Other nutritional; endocrine; and metabolic disorders (2 sources) Obesity, unspecified; Translations: [Obesity, unspecified] Chronic Other nutritional; endocrine; and metabolic disorders (1 source) Simple obesity ; Translations: [Other obesity due to excess calories] Onset: 08-25-2013 Chronic Other nutritional; endocrine; and metabolic disorders (20 sources) Obesity; Translations: [Obesity, unspecified] Onset: 12-04-2023 09-16-2023 Chronic Other nutritional; endocrine; and metabolic disorders (1 source) Morbid obesity; Translations: [Morbid (severe) obesity due to excess calories] Onset: 04-21-2018 Chronic Other nutritional; endocrine; and metabolic disorders (2 sources) Obese class I; Translations: [Body mass index 33.0-33.9, adult] Onset: 08-25-2013 Chronic Other nutritional; endocrine; and metabolic disorders (1 source) Obese class II; Translations: [Body mass index 35.0-35.9, adult] Onset: 08-25-2013 Chronic Other screening for suspected conditions (not mental disorders or infectious disease) (13 sources) Encounter for screening for malignant neoplasm of prostate; Translations: [Patient encounter status] Onset: 04-12-2016 Episodic Other skin disorders (6 sources) Callosity; Translations: [Corns and callosities] 02-17-2024 Episodic Other skin disorders (1 source) Rash and other nonspecific skin eruption; Translations: [Rash and other nonspecific skin eruption] Onset: 02-19-2024 Episodic Other skin disorders (2 sources) Dystrophia unguium; Translations: [Nail dystrophy] 2024 Episodic Other upper respiratory disease (1 source) Allergic rhinitis; Translations: [Allergic rhinitis, unspecified] Onset: 04-13-2015 Chronic Other upper respiratory infections (1 source) Acute sinusitis; Translations: [Acute sinusitis, unspecified] Episodic Peripheral and visceral atherosclerosis (1 source) Vascular disease of the skin; Translations: [Vascular disorder of skin] Onset: 07-11-2018 Chronic Residual codes; unclassified (20 sources) Obstructive sleep apnea syndrome; Translations: [Obstructive sleep apnea (adult) (pediatric)] Onset: 12-04-2023 09-14-2023 Chronic Residual codes; unclassified (4 sources) Obstructive sleep apnea (adult) (pediatric); Translations: [Obstructive sleep apnea (adult)(pediatric)] 09-16-2023 Chronic Residual codes; unclassified (1 source) Preventive procedure; Translations: [Encounter for other specified prophylactic measures] Episodic Spondylosis; intervertebral disc disorders; other back problems (20 sources) Lumbar spondylosis; Translations: [Spondylosis without myelopathy or radiculopathy, lumbar region] Onset: 11-27-2018 Chronic Spondylosis; intervertebral disc disorders; other back problems (18 sources) Spinal stenosis of lumbar region; Translations: [Spinal stenosis, lumbar region without neurogenic claudication] Onset: 09-24-2017 03-03-2019 Episodic Comment on above: Problem List clean-u p per request of Phys. EHR Cmte Systemic lupus erythematosus and connective tissue disorders (1 source) Disorder of connective tissue; Translations: [Systemic involvement of connective tissue, unspecified] Onset: 01-25-2014 Chronic Unclassified (1 source) Encounter for screening for malignant neoplasm of colon; Translations: [Encounter for screening for malignant neoplasm of colon] Onset: 05-09-2022 Unclassified (1 source) R13.10 - Dysphagia, unspecified; Translations: [R13.10 - Dysphagia, unspecified] Onset: 05-23-2021 Unclassified (1 source) Z01.812 - Encounter for preprocedural laboratory examination; Translations: [Z01.812 - Encounter for preprocedural laboratory examination] Onset: 05-19-2021 Unclassified (1 source) Varicose Veins Onset: 02-03-2024 Unclassified (1 source) Dressing Change Onset: 12-27-2023 Unclassified (1 source) Wound Check Onset: 12-04-2023 Unclassified (1 source) Ventricular tachycardia, unspecified; Translations: [Ventricular tachycardia, unspecified] Onset: 08-20-2024 Past or Other Problems Problem Classification Problem Date Documented Date Episodic/Chronic Abdominal pain (1 source) Left lower quadrant pain; Translations: [Left lower quadrant pain] Onset: 9 Episodic Acquired foot deformities (20 sources) Left foot drop; Translations: [Foot drop, left foot] Onset: 1 07-26-2020 Episodic Acquired foot deformities (20 sources) Bilateral foot drop; Translations: [Foot drop, right foot] Onset: 1 07-26-2020 Episodic Bacterial infection; unspecified site (1 source) Bacterial infectious disease; Translations: [Bacterial infection, unspecified, in conditions classified elsewhere and of unspecified site] Onset: 9 Episodic Deficiency and other anemia (4 sources) Anemia, unspecified; Translations: [ANEMIA UNSPECIFIED] Onset: 2 Episodic Gastrointestinal hemorrhage (1 source) Hemorrhage of rectum and anus; Translations: [Hemorrhage of rectum and anus] Onset: 7 Episodic Inflammation; infection of eye (except that caused by tuberculosis or sexually transmitteddisease) (1 source) Conjunctivitis; Translations: [Unspecified conjunctivitis] Onset: 5 Episodic Malaise and fatigue (3 sources) Other fatigue; Translations: [Malaise and fatigue] Onset: 7 Episodic Open wounds of extremities (1 source) Unspecified open wound, right lower leg, subsequent encounter; Translations: [Unspecified open wound, right lower leg, subsequent encounter] Onset: 4 Episodic Open wounds of extremities (1 source) Open wound of lower leg with complication; Translations: [Unspecified open wound, left lower leg, subsequent encounter] 12-04-2023 Episodic Other connective tissue disease (4 sources) Trigger finger, right index finger; Translations: [TRIGGER FINGER RIGHT INDEX FINGER] Onset: 2 Episodic Other connective tissue disease (1 source) Muscle weakness; Translations: [Muscle weakness (generalized)] Onset: 9 Episodic Other connective tissue disease (1 source) Disuse muscle atrophy; Translations: [Muscular wasting and disuse atrophy, not elsewhere classified] Onset: 9 Episodic Other connective tissue disease (1 source) Musculoskeletal symptom; Translations: [Other musculoskeletal symptoms referable to limbs] Onset: 9 Episodic Other connective tissue disease (19 sources) Tendinitis of left psoas tendon; Translations: [Psoas tendinitis, left hip] Onset: 1 07-26-2020 Episodic Other diseases of kidney and ureters (1 source) Hydronephrosis with renal and ureteral calculous obstruction; Translations: [Hydronephrosis with renal and ureteral calculous obstruction] Onset: 9 Episodic Other diseases of veins and lymphatics (1 source) Peripheral venous insufficiency; Translations: [Unspecified venous (peripheral) insufficiency] Onset: 9 Episodic Other diseases of veins and lymphatics (1 source) Venous insufficiency (chronic) (peripheral); Translations: [Venous insufficiency (chronic) (peripheral)] Onset: 4 Episodic Other diseases of veins and lymphatics (3 sources) Ankle ulcer; Translations: [Venous insufficiency (chronic) (peripheral)] 12-18-2023 Episodic Other gastrointestinal disorders (1 source) Other specified symptoms and signs involving the digestive system and abdomen; Translations: [Oth symptoms and signs involving the dgstv sys and abdomen] Onset: 7 Episodic Other gastrointestinal disorders (1 source) Pharyngeal dysphagia; Translations: [Dysphagia, pharyngoesophageal phase] Onset: 7 Episodic Other injuries and conditions due to external causes (1 source) Traumatic injury; Translations: [Injury, other and unspecified, unspecified site] Onset: 6 Episodic Other lower respiratory disease (1 source) Breathing painful; Translations: [Painful respiration] Onset: 9 Episodic Other non-traumatic joint disorders (1 source) Shoulder joint pain; Translations: [Pain in unspecified shoulder] Onset: 4 Episodic Other skin disorders (1 source) Eruption; Translations: [Rash and other nonspecific skin eruption] Onset: 4 Episodic Other skin disorders (1 source) Folliculitis; Translations: [Follicular disorder, unspecified] Onset: 9 Episodic Phlebitis; thrombophlebitis and thromboembolism (2 sources) Phlebitis; Translations: [Phlebitis and thrombophlebitis of unspecified site] 02-05-2024 Episodic Residual codes; unclassified (1 source) Family history of malignant neoplasm of digestive organs Onset: 2 Resolved: 2 Episodic Residual codes; unclassified (1 source) Pain; Translations: [Pain, unspecified] Resolved: 2 Episodic Residual codes; unclassified (1 source) Family history of malignant neoplasm of gastrointestinal tract; Translations: [Family history of malignant neoplasm of digestive organs] Onset: 4 Episodic Residual codes; unclassified (1 source) Symptom: generalized; Translations: [Other general symptoms and signs] Onset: 9 Episodic Residual codes; unclassified (1 source) Localized edema; Translations: [Localized edema] Onset: 4 Episodic Residual codes; unclassified (4 sources) Edema of left lower leg; Translations: [Localized edema] 12-04-2023 Episodic Screening and history of mental health and substance abuse codes (1 source) History of tobacco use; Translations: [Personal history of tobacco use, presenting hazards to health] Onset: 7 Episodic Skin and subcutaneous tissue infections (2 sources) Cellulitis and abscess of lower leg; Translations: [Cellulitis and abscess of leg, except foot] Onset: 4 Episodic Superficial injury; contusion (1 source) Abrasion, ankle; Translations: [Abrasion, left ankle, initial encounter] Onset: 9 Episodic Unclassified (1 source) Suspected COVID-19 virus infection Z20.822 Unclassified (1 source) Ventricular tachycardia, unspecified; Translations: [Ventricular tachycardia, unspecified] Onset: 5 Varicose veins of lower extremity (20 sources) Varicose veins of left lower extremity with ulcer of ankle; Translations: [Ankle ulcer] Onset: 4 04-10-2024 Episodic Viral infection (1 source) Viral disease; Translations: [Other specified diseases due to viruses] Onset: 4 Episodic Results Test Name Value Interpretation Reference Range Facility Office Visiton 08-25-2024 Follow-up visit [id number] Robert Nicole trisha 1950 M Date Provider Department Center 08/25/2024 YESSENIA LUBIN CARD [facility] Family History Family Status - Relation Status Age at Mother Father Level of Service:64054 [place] OFFICE/OUTPATIENT ESTABLISHED HIGH MDM 40 MIN Reason for Visit and Comments: Atrial Flutter [101] Hospital Follow-up [832] Normal [facility] 30on 08-22-2024 30 Daily Case Managemen t Update Multidisciplinary rounds have been completed. Barriers to Discharge: Patient is medically ready for hospital discharge at this time. AVS has been completed, and primary RN has been notified of patients discharge readiness. Cardiology follow up appointment requested via [facility]. Patient will discharge to home and will arrange for own discharge transportation. No further OTM needs identified at this time. [facility] will continue to follow patient and assist with any further discharge related needs. Diet: Dietary Orders (From admission, onward) Start Ordered 08/21/24 161 Regular Diet Diet effective now Question: Room Service? Answer: Yes 08/21/24 1610 08/20/24 170 Special Kitchen Request Once Comments: Plz send dinner at 1815. Pt would like a turkey burger with lettuce, ketchup, villatoro, mustard. Sims, mashed sweet potatoes, bon alexandra 08/20/24 1709 08/20/24 1349 Special Kitchen Request Once Comments: Hot roast beef sandwich, mashed potatoes and gravy. Side salad with cucumbers and banana peppers, ranch dressing, 2 oatmeal cookies 08/20/24 1350 Physician Expected Discharge Date: 08/22/2024 Discharge Delays: PT Six Click Score: 22 OT Six Click Score: 21 PT Recommendations: Patient is able to return to prior living environment OT Recommendations: Patient is able to return to prior living environment Does patient understand post acute plan of care? Yes Is expected discharge disposition appropriate for patient?: Yes New Consults: Therapy Orders (From admission, onward) Start Ordered 08/20/24223 OT eval and treat Until therapy completed Question: Reason for OT? Answer: eval and treat 08/20/24224 Normal [facility] 30 The patient is Moderately Stable - Low risk of patient condition declining or worsening The patient's goals for the shift include comfort The clinical goals for the shift include vss Over the shift, the patient did not make progress toward the following goals. Barriers to progression include na. Recommendations to address these barriers include na. Normal [facility] CBCon 08-22-2024 Erythrocyte distribution width (RBC) [Ratio] 16.2 % High 11.5-15.0 [facility] Comment on above: Performed By: #### L [id number] #### [facility] ([facility]) [address] [place] [address] ERYTHROCYTE MEAN CORPUSCULAR HEMOGLOBIN CONCENTRATION (G/DL) BY AUTOMATED 32.3 g/dL Normal 32.0-35.0 [facility] Comment on above: Performed By: #### L [id number] #### [facility] ([facility]) [address] [place] [address] Hematocrit (Bld) [Volume fraction] 41.2 % Normal 39.0-50.0 [facility] Comment on above: Performed By: #### L [id number] #### [facility] ([facility]) [address] [place] [address] Hemoglobin (Bld) [Mass/Vol] 13.3 g/dL Normal 13.0-17.0 [facility] Comment on above: Performed By: #### L [id number] #### [facility] ([facility]) [address] [place] [address] MCH (RBC) [Entitic mass] 29.8 pg Normal 27.0-33.0 [facility] Comment on above: Performed By: #### L [id number] #### [facility] ([facility]) [address] [place] [address] MCV (RBC) [Entitic vol] 92.4 fL Normal 82.0-98.0 [facility] Comment on above: Performed By: #### L [id number] #### [facility] ([facility]) [address] [place] [address] PLATELETS (10*3/UL) IN BLOOD AUTOMATED COUNT 241 10*3/uL Normal 150-400 [facility] Comment on above: Performed By: #### L [id number] #### [facility] ([facility]) [address] [place] [address] RBC (Bld) [#/Vol] 4.46 10*6/uL Normal 4.20-5.70 [facility] Comment on above: Performed By: #### L [id number] #### [facility] ([facility]) [address] [place] [address] WBC (Bld) [#/Vol] 9.06 10*3/uL Normal 4.00-10.60 [facility] Comment on above: Performed By: #### L [id number] #### [facility] ([facility]) [address] [place] [address] COMPREHENSIVE METABOLIC PANE Karthikeyan 08-22-2024 Albumin [Mass/Vol] 3.6 g/dL Normal 3.5-5.7 [facility] Comment on above: Performed By: #### L [id number] #### [facility] ([facility]) [address] [place] [address] ALP [Catalytic activity/Vol] 57 U/L Normal 34-104 [facility] Comment on above: Performed By: #### L [id number] #### [facility] ([facility]) [address] [place] [address] ALT [Catalytic activity/Vol] 12 U/L Normal 7-52 [facility] Comment on above: Performed By: #### L [id number] #### [facility] ([facility]) [address] [place] [address] Anion gap [Moles/Vol] 8 mmol/L Normal 7-20 [facility] Comment on above: Performed By: #### L [id number] #### [facility] ([facility]) [address] [place] [address] AST [Catalytic activity/Vol] 15 U/L Normal 13-39 [facility] Comment on above: Performed By: #### L [id number] #### [facility] ([facility]) [address] [place] [address] Bilirubin [Mass/Vol] 0.5 mg/dL Normal 0.3-1.0 [facility] Comment on above: Performed By: #### L [id number] #### [facility] ([facility]) [address] [place] [address] Calcium [Mass/Vol] 8.5 mg/dL Low 8.6-10.3 [facility] Comment on above: Performed By: #### L [id number] #### [facility] ([facility]) [address] [place] [address] Chloride [Moles/Vol] 107 mmol/L Normal 98-107 [facility] Comment on above: Performed By: #### L [id number] #### [facility] ([facility]) [address] [place] [address] CO2 [Moles/Vol] 29 mmol/L Normal 21-31 [facility] Comment on above: Performed By: #### L [id number] #### [facility] ([facility]) [address] [place] [address] Creatinine [Mass/Vol] 1.07 mg/dL Normal 0.70-1.30 [facility] Comment on above: Performed By: #### L [id number] #### [facility] ([facility]) [address] [place] [address] GLOMERULAR FILTRATION RATE ML/MIN/1.73 SQ M.PREDICTED 72.8 mL/min/1.73m*2 Normal >60.0 [facility] Comment on above: Result Comment: The [facility]???s estimated glomerular filtration rate (eGFR) will no longer include consideration of race in its calculation. The National Kid[employer] Foundation???s eGFR Task Force developed new recommendations for [...] disproportionately affect any one group of individuals. Performed By: #### L [id number] #### [facility] ([facility]) [address] [place] [address] Glucose [Mass/Vol] 97 mg/dL Normal 70-100 [facility] Comment on above: Performed By: #### L [id number] #### [facility] ([facility]) [address] [place] [address] Potassium [Moles/Vol] 4.3 mmol/L Normal 3.5-5.1 [facility] Comment on above: Performed By: #### L [id number] #### [facility] ([facility]) [address] [place] [address] Protein [Mass/Vol] 6.7 g/dL Normal 6.0-8.3 [facility] Comment on above: Performed By: #### L [id number] #### [facility] ([facility]) [address] [place] [address] Sodium [Moles/Vol] 140 mmol/L Normal 136-145 [facility] Comment on above: Performed By: #### L [id number] #### [facility] ([facility]) [address] [place] [address] Urea nitrogen [Mass/Vol] 16 mg/dL Normal 7-25 [facility] Comment on above: Performed By: #### L [id number] #### [facility] ([facility]) [address] [facility] [place] [address] UREA NITROGEN/CREATININE (MASS RATIO) IN SER/PLAS 15.0 Normal [facility] Comment on above: Performed By: #### L [id number] #### [facility] ([facility]) [address] [facility] [place] [address] MAGNESIUMon 08-22-2024 Magnesium [Mass/Vol] 2.2 mg/dL Normal 1.9-2.7 [facility] Comment on above: Performed By: #### L [id number] #### [facility] ([facility]) [address] [place] [address] ANESon 08-21-2024 ANES -- Attestation signed by Haim Wright MD at 08/29/2024 2:19 PM By using the attestations below, the signing clinician agrees that I have read and verify that the documentation has been personally reviewed by me and ensure that the documentation accurately reflects the encounter. GC: I personally saw this patient on the day of the encounter, performed the roe portion(s) of the service and participated in the management and confirm the resident's documentation. Please note there may be an additional personal documentation from me. My additional comments are as follows: Plan for EPS and AFL Ablation Haim Wright MD, ScM, MSc [employer] Cutter Email: [email or web address] Patient: Rebeca Nicole Procedure Information Date/Time: 08/21/24 1305 Procedure: Ablation atrial flutter Location: [facility] B2B SALES EXECUTIVE 1 EP / [facility] (Cath) Providers: Haim Wright MD Clinical information reviewed: Tobacco Allergies Meds Problems Med Hx Surg Hx Fam Hx Soc Hx Physical Exam Airway Mallampati: III Cardiovascular Dental Pulmonary Abdominal Anesthesia Plan ASA 3 other (Conscious sedation) intravenous induction Anesthetic plan and risks discussed with patient. Use of blood products discussed with patient who consented to blood products. Plan discussed with attending and fellow. Additional Equipment Requests Normal [facility] HPon 08-21-2024 HP H&P reviewed. The patient was examined and there are no changes to the H&P. Normal [facility] OPNOTEon 08-21-2024 OPNOTE Ablation atrial flutter Operative Note Date: 08/21/2024 Location: [facility] (Cath) Name: Rebeca Nicole, : 1950, Diagnosis Pre-op Diagnosis * Atrial flutter, unspecified type (CMS/HCC) [I48.92] Post-op Diagnosis * Atrial flutter, unspecified type (CMS/HCC) [I48.92] Procedures Ablation atrial flutter 14772 - [place] OFFICE/OUTPT VISIT,PROCEDURE ONLY Surgeons Primary: Haim Wright MD Assisting: Magdy Phoenix MD Procedure Summary Anesthesia: Moderate Sedation ASA: ASA status not filed in the log. Estimated Blood Loss: 20 mL Total IV Fluids: 100 ml Drains: * None in log * Staff: Vocational Education Teacher: Gracie Everett, RT Scrub Person: DEV Toribio Documenter: Le Norman RN Invasive Nurse: Catherine Larry RN; Juliane Greenwood RN Indications: Rebeca Nicole is an 74 y.o. male who is having surgery for Atrial flutter, unspecified type (CMS/HCC) [I48.92]. Procedure Details: The patient was seen in the preoperative area. The risks, benefits, complications, treatment options, non-operative alternatives, expected recovery and outcomes were discussed with the patient. The possibilities of reaction to medication, pulmonary aspiration, injury to surrounding structures, bleeding, recurrent infection, the need for additional procedures, failure to diagnose a condition, and creating a complication requiring transfusion or operation were discussed with the patient. The patient concurred with the proposed plan, giving informed consent. The site of surgery was properly noted/marked if necessary per policy. The patient has been actively warmed in preoperative area. Preoperative antibiotics are not indicated. Venous thrombosis prophylaxis are not indicated. Findings: Diagnostic EP Study done We noticed that the patient was easily inducible with a narrow complex tachycardia with a cycle length of 280 ms. Entrainment was performed from proximal coronary sinus poles which showed a concealed entrainment with PPI minus TCL of almost 0 ms. We then performed an activation map which further confirmed that that the early meets late point was at the cavotricuspid isthmus region. Based on this, we then performed CTI ablation. Full note to follow. We did not notice any ventricular tachycardia or atrial fibrillation during the diagnostic EP study or during ablation. Complications: None; patient tolerated the procedure well. Disposition: PACU - hemodynamically stable. Condition: stable Haim Wright [facility] 30on 08-20-2024 30 The patient is Moderately Stable - Low risk of patient condition declining or worsening The patient's goals for the shift include comfort The clinical goals for the shift include VSS Over the shift, the patient did not make progress toward the following goals. Barriers to progression include na. Recommendations to address these barriers include na. [facility] 30 Problem: Pain - Adul t Goal: Verbalizes/displays adequate comfort level or baseline comfort level Outcome: Progressing Problem: Safety - Adult Goal: Free from fall injury Outcome: Progressing Flowsheets (Taken 08/20/2024 020) Free from fall injury: Assess patient frequently for physical needs Identify cognitive and physical deficits and behaviors that affect risk of falls [place] fall precautions as indicated by assessment Instruct patient to call for assistance with activity based on assessment Problem: Discharge Planning Goal: Discharge to home or other facility with appropriate resources Outcome: Progressing Flowsheets (Taken 08/20/2024199) Discharge to home or other facility with appropriate resources: Identify barriers to discharge with patient and caregiver Problem: Chronic Conditions and Co-morbidities Goal: Patient's chronic conditions and co-morbidity symptoms are monitored and maintained or improved Outcome: Progressing Flowsheets (Taken 08/20/2024199) Care Plan - Patient's Chronic Conditions and Co-Morbidity Symptoms are Monitored and Maintained or Improved: Monitor and assess patient's chronic conditions and comorbid symptoms for stability, deterioration, or improvement The patient is Moderately Stable - Low risk of patient condition declining or worsening The patient's goals for the shift include comfort The clinical goals for the shift include VSS Normal [facility] 30 The patient is Moderately Stable - Low risk of patient condition declining or worsening The patient's goals for the shift include comfort The clinical goals for the shift include VSS Normal [facility] CBC WITH AUTO DIFFERENTIALon 08-20-2024 Basophils (Bld) [#/Vol] 0.12 10*3/uL Normal 0.00-0.20 [facility] Comment on above: Performed By: #### L [id number] #### [facility] ([facility]) [address] [place] [address] Basophils/100 WBC (Bld) 1.3 % High 0.0-1.0 [facility] Comment on above: Performed By: #### L [id number] #### [facility] ([facility]) [address] [place] [address] Eosinophils (Bld) [#/Vol] 0.21 10*3/uL Normal 0.00-0.50 [facility] Comment on above: Performed By: #### L [id number] #### [facility] ([facility]) [address] [place] [address] Eosinophils/100 WBC (Bld) 2.4 % Normal 0.0-6.0 [facility] Comment on above: Performed By: #### L [id number] #### [facility] ([facility]) [address] [place] [address] Erythrocyte distribution width (RBC) [Ratio] 16.2 % High 11.5-15.0 [facility] Comment on above: Performed By: #### L [id number] #### [facility] ([facility]) [address] [place] [address] ERYTHROCYTE MEAN CORPUSCULAR HEMOGLOBIN CONCENTRATION (G/DL) BY AUTOMATED 32.3 g/dL Normal 32.0-35.0 [facility] Comment on above: Performed By: #### L [id number] #### [facility] ([facility]) [address] [place] [address] Hematocrit (Bld) [Volume fraction] 40.3 % Normal 39.0-50.0 [facility] Comment on above: Performed By: #### L [id number] #### [facility] ([facility]) [address] [place] [address] Hemoglobin (Bld) [Mass/Vol] 13.0 g/dL Normal 13.0-17.0 [facility] Comment on above: Performed By: #### L [id number] #### [facility] ([facility]) [address] [place] [address] Immature granulocytes (Bld) [#/Vol] 0.04 10*3/uL Normal 0.00-0.20 [facility] Comment on above: Performed By: #### L [id number] #### [facility] ([facility]) [address] [place] [address] Immature granulocytes/100 WBC (Bld) 0.4 % Normal 0.0-1.0 [facility] Comment on above: Performed By: #### L [id number] #### [facility] ([facility]) [address] [place] [address] Lymphocytes (Bld) [#/Vol] 1.88 10*3/uL Normal 1.20-4.00 [facility] Comment on above: Performed By: #### L [id number] #### [facility] ([facility]) [address] [place] [address] Lymphocytes/100 WBC (Bld) 21.1 % Normal 20.0-45.0 [facility] Comment on above: Performed By: #### L [id number] #### [facility] ([facility]) [address] [place] [address] MCH (RBC) [Entitic mass] 29.7 pg Normal 27.0-33.0 [facility] Comment on above: Performed By: #### L [id number] #### [facility] ([facility]) [address] [place] [address] MCV (RBC) [Entitic vol] 92.0 fL Normal 82.0-98.0 [facility] Comment on above: Performed By: #### L [id number] #### [facility] ([facility]) [address] [place] [address] Monocytes (Bld) [#/Vol] 0.60 10*3/uL Normal 0.10-1.00 [facility] Comment on above: Performed By: #### L [id number] #### [facility] ([facility]) [address] [place] [address] Monocytes/100 WBC (Bld) 6.7 % Normal 5.0-12.0 [facility] Comment on above: Performed By: #### L [id number] #### [facility] ([facility]) [address] [place] [address] Neutrophils (Bld) [#/Vol] 6.04 10*3/uL Normal 1.60-7.60 [facility] Comment on above: Performed By: #### L [id number] #### [facility] ([facility]) [address] [place] [address] Neutrophils/100 WBC (Bld) 68.1 % Normal 40.0-72.0 [facility] Comment on above: Performed By: #### L [id number] #### [facility] ([facility]) [address] [place] [address] NRBC (PER 100 WBCS) BY AUTOMATED COUNT 0.0 % Normal 0 [facility] Comment on above: Performed By: #### L [id number] #### [facility] ([facility]) [address] [place] [address] PLATELETS (10*3/UL) IN BLOOD AUTOMATED COUNT 232 10*3/uL Normal 150-400 [facility] Comment on above: Performed By: #### L [id number] #### [facility] ([facility]) [address] [place] [address] RBC (Bld) [#/Vol] 4.38 10*6/uL Normal 4.20-5.70 [facility] Comment on above: Performed By: #### L [id number] #### [facility] ([facility]) [address] [place] [address] WBC (Bld) [#/Vol] 8.89 10*3/uL Normal 4.00-10.60 [facility] Comment on above: Performed By: #### L [id number] #### [facility] ([facility]) [address] [place] [address] COMPREHENSIVE METABOLIC PANE Karthikeyan 08-20-2024 Albumin [Mass/Vol] 3.6 g/dL Normal 3.5-5.7 [facility] Comment on above: Performed By: #### L [id number] ####[facility] ([facility])[address] [place] [address] ALP [Catalytic activity/Vol] 55 U/L Normal 34-104 [facility] Comment on above: Performed By: #### L [id number] ####[facility] ([facility])[address] [place] [address] ALT [Catalytic activity/Vol] 15 U/L Normal 7-52 [facility] Comment on above: Performed By: #### L [id number] ####[facility] ([facility])[address] [place] [address] Anion gap [Moles/Vol] 10 mmol/L Normal 7-20 [facility] Comment on above: Performed By: #### L [id number] ####[facility] ([facility])[address] [place] [address] AST [Catalytic activity/Vol] 15 U/L Normal 13-39 [facility] Comment on above: Performed By: #### L [id number] ####[facility] ([facility])[address] [place] [address] Bilirubin [Mass/Vol] 0.8 mg/dL Normal 0.3-1.0 [facility] Comment on above: Performed By: #### L [id number] ####[facility] ([facility])[address] [place] [address] Calcium [Mass/Vol] 8.6 mg/dL Normal 8.6-10.3 [facility] Comment on above: Performed By: #### L [id number] ####[facility] ([facility])[address] [place] [address] Chloride [Moles/Vol] 105 mmol/L Normal 98-107 [facility] Comment on above: Performed By: #### L [id number] ####[facility] ([facility])[address] [place] [address] CO2 [Moles/Vol] 28 mmol/L Normal 21-31 [facility] Comment on above: Performed By: #### L [id number] ####[facility] ([facility])[address] [place] [address] Creatinine [Mass/Vol] 0.90 mg/dL Normal 0.70-1.30 [facility] Comment on above: Performed By: #### L [id number] ####[facility] ([facility])[address] [place] [address] GLOMERULAR FILTRATION RATE ML/MIN/1.73 SQ M.PREDICTED 89.6 mL/min/1.73m*2 Normal >60.0 [facility] Comment on above: Result Comment: The [facility]???s estimated glomerular filtration rate (eGFR) will no longer include consideration of race in its calculation. The National Kidney Foundation???s eGFR Task Force developed new recommendations for [...] disproportionately affect any one group of individuals. Performed By: #### L [id number] ####[facility] ([facility])[address] [place] [address] Glucose [Mass/Vol] 88 mg/dL Normal 70-100 [facility] Comment on above: Performed By: #### L [id number] ####[facility] ([facility])[address] [place] [address] Potassium [Moles/Vol] 3.7 mmol/L Normal 3.5-5.1 [facility] Comment on above: Performed By: #### L [id number] ####[facility] ([facility])[address] [place] [address] Protein [Mass/Vol] 6.5 g/dL Normal 6.0-8.3 [facility] Comment on above: Performed By: #### L [id number] ####[facility] ([facility])[address] [place] [address] Sodium [Moles/Vol] 139 mmol/L Normal 136-145 [facility] Comment on above: Performed By: #### L [id number] ####[facility] ([facility])[address] [place] [address] Urea nitrogen [Mass/Vol] 15 mg/dL Normal 7-25 [facility] Comment on above: Performed By: #### L [id number] ####[facility] ([facility])[address] [place] [address] UREA NITROGEN/CREATININE (MASS RATIO) IN SER/PLAS 16.7 Normal [facility] Comment on above: Performed By: #### L [id number] ####[facility] ([facility])[address] [address] CONSULTon 08-20-2024 CONSULT -- Attestation signed by Magdy Phoenix MD at 08/21/2024 1:02 PM By using the attestations below, the signing clinician agrees that I have read and verify that the documentation has been personally reviewed by me and ensure that the documentation accurately reflects the encounter. GC: I performed the roe portion(s) of the service and participated in the management and confirm the resident's documentation. Please note there may be an additional personal documentation from me. Pt has evidence of SVT with atrial tachycardia with 2:1 ventricular conduction. This makes AVRT not a possiblity but AVNRT/AT/Aflutter with 2:1. Will offer EPS and see what can be induced. [facility] Reason for consultation: Ventricular arrhythmia HPI: Rebeca Nicole is a 74 y.o. 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, presented to the hospital due to concerns of ventricular arrhythmia, the patient was evaluated by his PCP and sent on 7-day home monitor for palpitations he mentioned during the last few months he been having episodes of palpitations that last for few minutes no history of syncope or presyncope, he recently the frequency of his palpitation episodes increased so he called his PCP and event monitor returned was done for 7 days the patient was called by his PCP and was told he has ventricular arrhythmia coming from the bottom of the heart and the patient was transferred here for further evaluationof chest pain shortness of breath the patient has limited exercise tolerance due to neuropathy and joint pain, he uses a cane to move around but no limitations compared to his baseline While in hospital the patient had further episodes of palpitations telemetry showed atrial flutter with rate of 150 bpm PMH: History reviewed. No pertinent past medical history. PSH: History reviewed. No pertinent surgical history. SH: Social Determinants of Health Tobacco Use: Medium Risk (08/20/2024) Patient History Smoking Tobacco Use: Former Smokeless Tobacco Use: Never Passive Exposure: Not on file Alcohol Use: Not on file Financial Resource Strain: Low Risk (08/20/2024) Overall Financial Resource Strain (CARDIA) Difficulty of Paying Living Expenses: Not hard at all Food Insecurity: No Food Insecurity (08/20/2024) Hunger Vital Sign Worried About Running Out of Food in the Last Year: Never true Ran Out of Food in the Last Year: Not on file Transportation Needs: No Transportation Needs (08/20/2024) Transportation Lack of Transportation (Medical): No Lack of Transportation (Non-Medical): Not on file Physical Activity: Not on file Stress: Not on file Social Connections: Not on file Intimate Partner Violence: Unknown (08/20/2024) Humiliation, Afraid, Rape, and Kick questionnaire Fear of Current or Ex-Partner: No Emotionally Abused: Not on file Physically Abused: Not on file Sexually Abused: Not on file Depression: Not on file Housing Stability: Low Risk (08/20/2024) Housing Stability Vital Sign Unable to Pay for Housing in the Last Year: No Number of Times Moved in the Last Year: Not on file Homeless in the Last Year: No Utilities: Not At Risk (08/20/2024) [facility] Utilities Threatened with loss of utilities: No Health Literacy: Not on file Allergies: Allergies Allergen Reactions Doxycycline Hives Sulfa (Sulfonamide Antibiotics) Rash Weight: @WEIGHT@ Visit Vitals BP 149/89 Pulse 71 Temp 36.5 ???C (97.7 ???F) (Temporal) Resp 15 Ht 1.91 m (6' 3.2 ) Wt (!) 141 kg (310 lb) SpO2 96% BMI 38.54 kg/m??? Smoking Status Former BSA 2.74 m??? Meds: No current facility-administered medications on file prior to encounter. No current outpatient medications on file prior to encounter. ROS: Cardio Basic Cardiovascular Symptoms: no lightheadedness, no leg edema, no syncope, no orthopnea, no PND, no claudication, Constitutional Constitutional: no fever, no night sweats, no significant weight gain, no significant weight loss, no exercise intolerance Eyes Eyes: no dry eyes, no irritation, no vision change ENMT Ears: no difficulty hearing, no ear pain Nose: no frequent nosebleeds, Mouth/Throat: no sore throat, no bleeding gums, no snoring, no dry mouth, no mouth ulcers, no oral abnormalities, no teeth problems Respiratory Respiratory: no cough, no wheezing, no coughing up blood, no sleep apnea Musculoskeletal Musculoskeletal: no muscle aches, no muscle weakness, joint pain+, no back pain, no swelling in the extremities Integumentary Skin no rash, no ulcer, no varicosities, no discoloration, no pruritus Neurologic Neurologic: no loss of consciousness, no weakness, no numbness, no seizures, no dizziness, no headaches Psychiatric Psych: no depression, feeling (more content not included)... Normal [facility] CONSULT -- Attestation signed by Giovani Monique MD at 08/20/2024 7:42 PM (Updated) Mr. Nicole was seen and examined by me with Dr. Garcia. He has 3 issues: Forceful beats: these appear to be PVCs Heart racing: we have documented a supraventricular tachycardia at a rate of approximately 150 bpm: ddx atrial flutter, AVNRT, etc. Worse symptoms on L side. I spoke with he and his family and recommend that he undergo EPS to diagnosis SVT and potential ablation. We discussed benefits and possible risks. Will also consider medical therapy depending on EP result. Importantly, at this time I see no evidence of VT. Cardiology Consult Note Reason for Consult: VT HPI: Rebeca Nicole is a 74 y.o. male with PMH of HTN and obesity who was transferred from [place] to [facility] for SVT and PVCs on event monitor. Patient has event monitor recently placed last month for episodes of palpitations for the past 2 months. These episodes happens up to 8 times a day, and lasts for few seconds, and aborts with bearing down. His event monitor showed SVT and PVCs. He feels more fatigued. He denied chest pain, SOB, nausea, vomiting, fever. He had an echo at [facility] which was unremarkable per the patient. Vitals on admission were Hr 55, Bp 144/81. Labs were unremarkable. ECG showed sinus bradycardia with PVCs. Cardiology ROS: Review of Systems Constitutional: Positive for fatigue. Negative for activity change and fever. HENT: Negative for congestion and sore throat. Respiratory: Negative for cough and shortness of breath. Cardiovascular: Positive for palpitations. Negative for chest pain. Gastrointestinal: Negative for abdominal pain, nausea and vomiting. Genitourinary: Negative for dysuria and urgency. Musculoskeletal: Negative for arthralgias and myalgias. Neurological: Negative for dizziness and weakness. Past Medical History He has no past medical history on file. Surgical History He has no past surgical history on file. Social History He reports that he has quit smoking. His smoking use included cigarettes. He has never used smokeless tobacco. No history on file for alcohol use and drug use. Family History No family history on file. Allergies Doxycycline and Sulfa (sulfonamide antibiotics) Medications No current outpatient medications No medications prior to admission. Last Recorded Vitals Patient Vitals for the past 24 hrs: BP Temp Temp src Pulse Resp SpO2 Height Weight 08/20/24 0800 133/87 -- -- 64 16 95 % -- -- 08/20/24 0427 -- -- -- -- -- -- 1.91 m (6' 3.2 ) (!) 141 kg (310 lb) 08/20/24 0300 144/81 36.5 ???C (97.7 ???F) Temporal 55 14 97 % -- -- 08/20/24 0200 (!) 160/98 36.6 ???C (97.9 ???F) Temporal 59 15 98 % -- -- Physical Examination: Physical Exam Constitutional: Appearance: Normal appearance. HENT: Head: Normocephalic and atraumatic. Eyes: Extraocular Movements: Extraocular movements intact. Pupils: Pupils are equal, round, and reactive to light. Cardiovascular: Rate and Rhythm: Normal rate and regular rhythm. Pulmonary: Effort: Pulmonary effort is normal. Breath sounds: Normal breath sounds. Abdominal: General: Abdomen is flat. Palpations: Abdomen is soft. Musculoskeletal: General: Normal range of motion. Cervical back: Normal range of motion. Right lower leg: No edema. Left lower leg: No edema. Skin: General: Skin is warm. Capillary Refill: Capillary refill takes less than 2 seconds. Neurological: General: No focal deficit present. Mental Status: He is alert. Psychiatric: Mood and Affect: Mood normal. Relevant Lab Results Encounter Date: 08/20/24 ECG 12 lead Result Value Ventricular Rate 55 Atrial Rate 55 GA Interval 180 QRS DURATION 104 QT Interval 456 QTC CALCULATION(BAZETT) 436 P Epsom 41 R-Epsom 1 T Wave Epsom 34 Impression Sinus bradycardia with occasional Premature ventricular complexes Otherwise normal ECG No previous ECGs available No results found for: CKTOTAL , CKMB , CKMBINDEX , TROPONINI No echocardiogram results found for the past 12 months No nuclear medicine results found for the past 12 months Relevant Imaging Results ECG 12 lead Sinus bradycardia with occasional Premature ventricular complexes Otherwise normal ECG No previous ECGs available ASSESSMENT Supraventricular tachycardia vs aflutter PVC HTN Obesity PLAN Consult EP for ablasion Keep on telemetry Replace electrolytes as needed Remainder of care as per primary team and other consultative services Cardiology team will continue to follow This note was, at least in part, completed using a voice security sales manager system. Every effort was made to ensure accuracy. However, inadvertent computerized security sales manager errors may be present. Dileep Alvarenga (more content not included)... Normal [facility] HIGH SENSITIVITY TROPONIN Io n 08-20-2024 HS TROPONIN I (NG/L) 5 ng/L Normal <20 [facility] Comment on above: Performed By: #### L [id number] ####[facility] ([facility])[address] [address] HPon 08-20-2024 HP -- Attestation signed by Magdy Phoenix MD at 08/21/2024 1:02 PM By using the attestations below, the signing clinician agrees that I have read and verify that the documentation has been personally reviewed by me and ensure that the documentation accurately reflects the encounter. GC: I performed the roe portion(s) of the service and participated in the management and confirm the resident's documentation. Please note there may be an additional personal documentation from me. Pt has evidence of SVT with atrial tachycardia with 2:1 ventricular conduction. This makes AVRT not a possiblity but AVNRT/AT/Aflutter with 2:1. Will offer EPS and see what can be induced. [facility] Reason for consultation: Ventricular arrhythmia HPI: Rebeca Nicole is a 74 y.o. 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, presented to the hospital due to concerns of ventricular arrhythmia, the patient was evaluated by his PCP and sent on 7-day home monitor for palpitations he mentioned during the last few months he been having episodes of palpitations that last for few minutes no history of syncope or presyncope, he recently the frequency of his palpitation episodes increased so he called his PCP and event monitor returned was done for 7 days the patient was called by his PCP and was told he has ventricular arrhythmia coming from the bottom of the heart and the patient was transferred here for further evaluationof chest pain shortness of breath the patient has limited exercise tolerance due to neuropathy and joint pain, he uses a cane to move around but no limitations compared to his baseline While in hospital the patient had further episodes of palpitations telemetry showed atrial flutter with rate of 150 bpm PMH: History reviewed. No pertinent past medical history. PSH: History reviewed. No pertinent surgical history. SH: Social Determinants of Health Tobacco Use: Medium Risk (08/20/2024) Patient History Smoking Tobacco Use: Former Smokeless Tobacco Use: Never Passive Exposure: Not on file Alcohol Use: Not on file Financial Resource Strain: Low Risk (08/20/2024) Overall Financial Resource Strain (CARDIA) Difficulty of Paying Living Expenses: Not hard at all Food Insecurity: No Food Insecurity (08/20/2024) Hunger Vital Sign Worried About Running Out of Food in the Last Year: Never true Ran Out of Food in the Last Year: Not on file Transportation Needs: No Transportation Needs (08/20/2024) Transportation Lack of Transportation (Medical): No Lack of Transportation (Non-Medical): Not on file Physical Activity: Not on file Stress: Not on file Social Connections: Not on file Intimate Partner Violence: Unknown (08/20/2024) Humiliation, Afraid, Rape, and Kick questionnaire Fear of Current or Ex-Partner: No Emotionally Abused: Not on file Physically Abused: Not on file Sexually Abused: Not on file Depression: Not on file Housing Stability: Low Risk (08/20/2024) Housing Stability Vital Sign Unable to Pay for Housing in the Last Year: No Number of Times Moved in the Last Year: Not on file Homeless in the Last Year: No Utilities: Not At Risk (08/20/2024) [facility] Utilities Threatened with loss of utilities: No Health Literacy: Not on file Allergies: Allergies Allergen Reactions Doxycycline Hives Sulfa (Sulfonamide Antibiotics) Rash Weight: @WEIGHT@ Visit Vitals BP 149/89 Pulse 71 Temp 36.5 ???C (97.7 ???F) (Temporal) Resp 15 Ht 1.91 m (6' 3.2 ) Wt (!) 141 kg (310 lb) SpO2 96% BMI 38.54 kg/m??? Smoking Status Former BSA 2.74 m??? Meds: No current facility-administered medications on file prior to encounter. No current outpatient medications on file prior to encounter. ROS: Cardio Basic Cardiovascular Symptoms: no lightheadedness, no leg edema, no syncope, no orthopnea, no PND, no claudication, Constitutional Constitutional: no fever, no night sweats, no significant weight gain, no significant weight loss, no exercise intolerance Eyes Eyes: no dry eyes, no irritation, no vision change ENMT Ears: no difficulty hearing, no ear pain Nose: no frequent nosebleeds, Mouth/Throat: no sore throat, no bleeding gums, no snoring, no dry mouth, no mouth ulcers, no oral abnormalities, no teeth problems Respiratory Respiratory: no cough, no wheezing, no coughing up blood, no sleep apnea Musculoskeletal Musculoskeletal: no muscle aches, no muscle weakness, joint pain+, no back pain, no swelling in the extremities Integumentary Skin no rash, no ulcer, no varicosities, no discoloration, no pruritus Neurologic Neurologic: no loss of consciousness, no weakness, no numbness, no seizures, no dizziness, no headaches Psychiatric Psych: no depression, feeling (more content not included)... Normal [facility] Basophils Auto (Bld) [#/Vol] on 08-19-2024 Basophils (Bld) [#/Vol] Automated basophil count 0.0-0.1 [facility] Basophils/100 WBC Auto (Bld) on 08-19-2024 Basophils/100 WBC (Bld) Automated basophil % 0.2-2.0 [facility] Eosinophils/100 WBC Auto (Bl d)on 08-19-2024 Eosinophils/100 WBC (Bld) Automated eosinophil % 0.9-7.0 [facility] Erythrocyte distribution wid th Auto (RBC) [Ratio]on 08-19-2024 Erythrocyte distribution width (RBC) [Ratio] Erythrocyte distribution width [Ratio] by Automated count High 11.0-15.0 [facility] Estimated glomerular filtrat ion rate (GFR) non- Americanon 08-19-2024 GFR/1.73 sq M.predicted among non-blacks MDRD (S/P/Bld) [Vol rate/Area] Estimated glomerular filtration rate (GFR) non- Low >=60 mL/min/1.73m 2 [facility] Fibrin D-dimer [Presence] in Platelet poor plasma by Latex agglutinationon 08-19-2024 Fibrin D-dimer LA Ql (PPP) Fibrin D-dimer [Presence] in Platelet poor plasma by Latex agglutination <=0.59 [facility] Comment on above: Increases in D-Dimer concentration observed withthromboembolic events can be variable due to localization,size, and age of the thrombus. Therefore, a thromboembolicevent cannot be diagnosed with certainty on the basis of thereference range. D-Dimers may also be elevated for a varietyof disorders including advanced age, , coronarydisease, cancer, liver disease, infection, inflammation,hematoma, DIC, trauma, post-surgery, diabetes, thrombolyticor anticoagulant therapy, stress, and generalizedhospitalization. Hematocrit Auto (Bld) [Volum e fraction]on 08-19-2024 Hematocrit (Bld) [Volume fraction] Hematocrit [Volume Fraction] of Blood by Automated count Low 42.0-54.0 [facility] Hemoglobin [Mass/volume] in Bloodon 08-19-2024 Hemoglobin (Bld) [Mass/Vol] Hemoglobin [Mass/volume] in Blood Low 14.0-18.0 [facility] Laboratory - Chemistry and C hemistry - challengeon 08-19-2024 Calcium [Mass/Vol] 8.8 mg/dL 8.5-10.1 [facility] Chloride [Moles/Vol] 103 mmol/L 98-107 [facility] CO2 [Moles/Vol] 29.4 mmol/L 21.0-32.0 [facility] Creatinine [Mass/Vol] 1.23 mg/dL 0.70-1.30 [facility] GFR/1.73 sq M.predicted MDRD (S/P/Bld) [Vol rate/Area] mL/min/{1.73_m2} >=60 mL/min/1.73m 2 [facility] Glucose [Mass/Vol] 94 mg/dL 74-106 [facility] Natriuretic peptide B (Bld) [Mass/Vol] 147.0 pg/mL <=900.0 [facility] Potassium [Moles/Vol] 3.8 mmol/L 3.5-5.1 [facility] Sodium [Moles/Vol] 139 mmol/L 136-145 [facility] Urea nitrogen [Mass/Vol] 17.0 mg/dL 7.0-18.0 [facility] Urea nitrogen/Creatinine [Mass ratio] 13.8 mg/mg [facility] Laboratory - Hematology and Cell countson 08-19-2024 Immature granulocytes/100 WBC (Bld) 0.2 % 0.0-0.5 [facility] Leukocytes [#/volume] correc destin for nucleated erythrocytes in Blood by Automated counon 08-19-2024 WBC corrected for nucl RBC Auto (Bld) [#/Vol] Leukocytes [#/volume] corrected for nucleated erythrocytes in Blood by Automated coun 4.0-11.0 [facility] Lymphocytes Auto (Bld) [#/Vo l]on 08-19-2024 Lymphocytes (Bld) [#/Vol] Lymphocytes [#/volume] in Blood by Automated count 1.2-3.8 [facility] Lymphocytes/100 WBC Auto (Bl d)on 08-19-2024 Lymphocytes/100 WBC (Bld) Lymphocytes/100 leukocytes in Blood by Automated count Low 20.5-60.0 [facility] MCH Auto (RBC) [Entitic mass ]on 08-19-2024 MCH (RBC) [Entitic mass] MCH [Entitic mass] by Automated count 25.9-34.0 [facility] MCHC Auto (RBC) [Mass/Vol]on 08-19-2024 MCHC (RBC) [Mass/Vol] MCHC [Mass/volume] by Automated count 29.9-35.2 [facility] MCV Auto (RBC) [Entitic vol] on 08-19-2024 MCV (RBC) [Entitic vol] MCV [Entitic volume] by Automated count 80.0-94.0 [facility] Monocytes Auto (Bld) [#/Vol] on 08-19-2024 Monocytes (Bld) [#/Vol] Automated blood monocyte count 0.3-0.8 [facility] Monocytes/100 WBC Auto (Bld) on 08-19-2024 Monocytes/100 WBC (Bld) Automated monocyte % 1.7-12.0 [facility] Neutrophils Auto (Bld) [#/Vo l]on 08-19-2024 Neutrophils (Bld) [#/Vol] Neutrophils [#/volume] in Blood by Automated count 1.4-6.5 [facility] Neutrophils/100 WBC Auto (Bl d)on 08-19-2024 Neutrophils/100 WBC (Bld) Automated neutrophil % 43.0-75.0 [facility] No Panel Informationon 08-19 Eosinophils # (Auto) 0.2 10 3/uL 0.0-0.7 [facility] Immature Granulocyte # (Auto) 0.02 10 3/uL 0.00-0.03 [facility] Troponin I High Sensitivity 6.7 pg/mL 4.0-76.1 [facility] Comment on above: CUT-OFF POINTS HAVE BEEN ESTABLISHED BASED ON THE FOURTHUNIVERSAL DEFINITION OF MYOCARDIAL INFARCTION. THE UPPERREFERENCE LIMIT (URL) OF TROPONIN, DEFINED THE 99THPERCENTILE OF cTnI DISTRIBUTION IN A REFERENCE POPULATION,HAS BEEN CONFIRMED THE DECISION THRESHOLD FOR MIDIAGNOSIS.99TH PERCENTILE = 76.2 PG/MLNOTE: HIGH-SENSITIVITY TROPONIN ASSAY IS NOT INTENDED TO BEUSED IN ISOLATION BUT SHOULD BE INTERPRETED IN CONJUNCTIONWITH OTHER DIAGNOSTIC AND CLINICAL INFORMATION. Platelet mean volume Auto (B ld) [Entitic vol]on 08-19-2024 Platelet mean volume (Bld) [Entitic vol] Platelet mean volume [Entitic volume] in Blood by Automated count Low 9.5-13.5 [facility] Platelets Auto (Bld) [#/Vol] on 08-19-2024 Platelets (Bld) [#/Vol] Platelets [#/volume] in Blood by Automated count 150-450 [facility] RBC Auto (Bld) [#/Vol]on RBC (Bld) [#/Vol] Erythrocytes [#/volume] in Blood by Automated count Low 4.70-6.10 [facility] Serum or plasma anion gap de terminationon 08-19-2024 Anion gap [Moles/Vol] Serum or plasma an ion gap determination [facility] Basophils Auto (Bld) [#/Vol] on 07-30-2024 Basophils (Bld) [#/Vol] Automated basophil count 0.0-0.1 [facility] Basophils/100 WBC Auto (Bld) on 07-30-2024 Basophils/100 WBC (Bld) Automated basophil % 0.2-2.0 [facility] Eosinophils/100 WBC Auto (Bl d)on 07-30-2024 Eosinophils/100 WBC (Bld) Automated eosinophil % 0.9-7.0 [facility] Erythrocyte distribution wid th Auto (RBC) [Ratio]on 07-30-2024 Erythrocyte distribution width (RBC) [Ratio] Erythrocyte distribution width [Ratio] by Automated count High 11.0-15.0 [facility] Estimated glomerular filtrat ion rate (GFR) non- Americanon 07-30-2024 GFR/1.73 sq M.predicted among non-blacks MDRD (S/P/Bld) [Vol rate/Area] Estimated glomerular filtration rate (GFR) non- Low >=60 mL/min/1.73m 2 [facility] Hematocrit Auto (Bld) [Volum e fraction]on 07-30-2024 Hematocrit (Bld) [Volume fraction] Hematocrit [Volume Fraction] of Blood by Automated count Low 42.0-54.0 [facility] Hemoglobin [Mass/volume] in Bloodon 07-30-2024 Hemoglobin (Bld) [Mass/Vol] Hemoglobin [Mass/volume] in Blood Low 14.0-18.0 [facility] Laboratory - Chemistry and C hemistry - challengeon 07-30-2024 Calcium [Mass/Vol] 8.7 mg/dL 8.5-10.1 [facility] Chloride [Moles/Vol] 105 mmol/L 98-107 [facility] CO2 [Moles/Vol] 29.3 mmol/L 21.0-32.0 [facility] Creatinine [Mass/Vol] 1.23 mg/dL 0.70-1.30 [facility] GFR/1.73 sq M.predicted MDRD (S/P/Bld) [Vol rate/Area] mL/min/{1.73_m2} >=60 mL/min/1.73m 2 [facility] Glucose [Mass/Vol] 104 mg/dL 74-106 [facility] Potassium [Moles/Vol] 4.0 mmol/L 3.5-5.1 [facility] Sodium [Moles/Vol] 140 mmol/L 136-145 [facility] TSH Qn 3.311 m[IU]/L 0.358-3.740 [facility] Urea nitrogen [Mass/Vol] 15.0 mg/dL 7.0-18.0 [facility] Urea nitrogen/Creatinine [Mass ratio] 12.2 mg/mg [facility] Laboratory - Hematology and Cell countson 07-30-2024 Immature granulocytes/100 WBC (Bld) 0.3 % 0.0-0.5 [facility] Leukocytes [#/volume] correc destin for nucleated erythrocytes in Blood by Automated counon 07-30-2024 WBC corrected for nucl RBC Auto (Bld) [#/Vol] Leukocytes [#/volume] corrected for nucleated erythrocytes in Blood by Automated coun 4.0-11.0 [facility] Lymphocytes Auto (Bld) [#/Vo l]on 07-30-2024 Lymphocytes (Bld) [#/Vol] Lymphocytes [#/volume] in Blood by Automated count 1.2-3.8 [facility] Lymphocytes/100 WBC Auto (Bl d)on 07-30-2024 Lymphocytes/100 WBC (Bld) Lymphocytes/100 leukocytes in Blood by Automated count Low 20.5-60.0 [facility] MCH Auto (RBC) [Entitic mass ]on 07-30-2024 MCH (RBC) [Entitic mass] MCH [Entitic mass] by Automated count 25.9-34.0 [facility] MCHC Auto (RBC) [Mass/Vol]on 07-30-2024 MCHC (RBC) [Mass/Vol] MCHC [Mass/volume] by Automated count 29.9-35.2 [facility] MCV Auto (RBC) [Entitic vol] on 07-30-2024 MCV (RBC) [Entitic vol] MCV [Entitic volume] by Automated count 80.0-94.0 [facility] Monocytes Auto (Bld) [#/Vol] on 07-30-2024 Monocytes (Bld) [#/Vol] Automated blood monocyte count 0.3-0.8 [facility] Monocytes/100 WBC Auto (Bld) on 07-30-2024 Monocytes/100 WBC (Bld) Automated monocyte % 1.7-12.0 [facility] Neutrophils Auto (Bld) [#/Vo l]on 07-30-2024 Neutrophils (Bld) [#/Vol] Neutrophils [#/volume] in Blood by Automated count 1.4-6.5 [facility] Neutrophils/100 WBC Auto (Bl d)on 07-30-2024 Neutrophils/100 WBC (Bld) Automated neutrophil % 43.0-75.0 [facility] No Panel Informationon 07-30 Eosinophils # (Auto) 0.4 10 3/uL 0.0-0.7 [facility] Immature Granulocyte # (Auto) 0.03 10 3/uL 0.00-0.03 [facility] Platelet mean volume Auto (B ld) [Entitic vol]on 07-30-2024 Platelet mean volume (Bld) [Entitic vol] Platelet mean volume [Entitic volume] in Blood by Automated count Low 9.5-13.5 [facility] Platelets Auto (Bld) [#/Vol] on 07-30-2024 Platelets (Bld) [#/Vol] Platelets [#/volume] in Blood by Automated count 150-450 [facility] RBC Auto (Bld) [#/Vol]on RBC (Bld) [#/Vol] Erythrocytes [#/volume] in Blood by Automated count Low 4.70-6.10 [facility] Serum or plasma anion gap de terminationon 07-30-2024 Anion gap [Moles/Vol] Serum or plasma an ion gap determination [facility] [employer] x4on 02-05-2024 Applied in clinic MANUALL Y TRANSCRIBED RESULTS [facility] 4x4[facility] 01-22-2024 APPLIED IN CLINIC TODAY. MANUALLY TRANSCRIBED RESULTS [employer] X[employer]form 4x4on 01-15-2024 Applied in clinic today MANUALLY TRANSCRIBED [facility]ULTS [facility] 01-10-2024 Applied in clinic today. MANUALLY TRANSCRIBED RESULTS [employer] 4x4on 01-03-2024 Applied in clinic today MANUALLY TRANSCRIBED RESULTS [facility] No Panel Informationon 12-26 Applied in clinic today MANUALLY TRANSCRIBED RESULTS [facility] No Panel Informationon 12-17 APPLIED IN CLINIC TODAY. MANUALLY TRANSCRIBED RESULTS No Panel InformationOrdered By: Lamar Bee on 12-18-2023 [facility] [employer] 12-04-2023 Applied in clinic MANUALL Y TRANSCRIBED RESULTS [facility] A1C with Estimated Average G luon 05-31-2022 A1C with Estimated Average [employer] Other Basic Metabolic Panelon 05-10 Calcium [Mass/Vol] 9.3138152 mg/dL 8.5-10 .1 mg/dL [employer] Other CO2 [Moles/Vol] 30.65529318 mmol/L 21.0-3 2.0 mmol/L [employer] Other Creatinine [Mass/Vol] 1.05851852 mg/dL 0. 70-1.30 mg/dL [employer] Other Potassium [Moles/Vol] 4.33165888 mmol/L 3 .5-5.1 mmol/L [employer] Other Urea nitrogen [Mass/Vol] 16.4677901 mg/dL 7.0-18.0 mg/dL [employer] Other Basic Metabolic Panel see note [employer] Other Basic Metabolic Panel 138 mmol/L 136-14 5 mmol/L [employer] Other Basic Metabolic Panel 119 mg/dL Critically high 74-106 mg /dL [employer] Other Basic Metabolic Panel >60 mL/min/1.73m2 > =60 mL/min/1.73m 2 [employer] Other CBC AUTO DIFFon 05-31-2022 BASO # 0.1 103/ul Normal 0.0-0.1 [facility] Comment on above: Performed By: #### C BC #### [facility] [address] [address] [address] Yamilex Law Basophils/100 WBC (Bld) 1.8 % Normal 0.2-2.0 [facility] Comment on above: Performed By: #### C BC #### [facility] [address] [address] [address] Yamilex Law EO # 0.4 103/ul Normal 0.0-0.7 [facility] Comment on above: Performed By: #### C BC #### [facility] [address] [place] [address] Dr. Yamilex Law Eosinophils/100 WBC (Bld) 5.4 % Normal 0.9-7.0 [facility] Comment on above: Performed By: #### C BC #### [facility] [address] [place] [address] Dr. Yamilex Law Erythrocyte distribution width (RBC) [Ratio] 15.9 % Critically high 11.0-15.0 [facility] Comment on above: Performed By: #### C BC #### [facility] [address] [place] [address] Dr. Yamilex Law Hematocrit (Bld) [Volume fraction] 40.4 % Critically low 42.0-54.0 [facility] Comment on above: Performed By: #### C BC #### [facility] [address] [place] [address] Dr. Yamilex Law Hemoglobin (Bld) [Mass/Vol] 13.0 g/dL Critically low 14.0-18.0 [facility] Comment on above: Performed By: #### C BC #### [facility] [address] [place] [address] Dr. Yamilex Law IG # 0.02 10e3/ul Normal 0.00-0.03 [facility] Comment on above: Performed By: #### C BC #### [facility] [address] [place] [address] Dr. Yamilex Law IG % 0.3 % Normal 0.0-0.5 [facility] Comment on above: Performed By: #### C BC #### [facility] [address] [place] [address] Dr. Yamilex Law LYMPH # 1.4 103/ul Normal 1.2-3.8 [facility] Comment on above: Performed By: #### C BC #### [facility] [address] [place] [address] Dr. Yamilex Law Lymphocytes/100 WBC (Bld) 20.6 % Normal 20.5-60.0 [facility] Comment on above: Performed By: #### C BC #### [facility] [address] [place] [address] Dr. Yamilex Law MANUAL DIFF REQ NO Normal [facility] Comment on above: Performed By: #### C BC #### [facility] [address] [place] [address] Dr. Yamilex Law MCH (RBC) [Entitic mass] 28.9 pg Normal 25.9-34.0 [facility] Comment on above: Performed By: #### C BC #### [facility] [address] [place] [address] Dr. Yamilex Law MCHC (RBC) [Mass/Vol] 32.2 g/dL Normal 29.9-35.2 [facility] Comment on above: Performed By: #### C BC #### [facility] [address] [place] [address] Dr. Yamilex Law MCV (RBC) [Entitic vol] 89.8 fL Normal 80.0-94.0 [facility] Comment on above: Performed By: #### C BC #### [facility] [address] [place] [address] Dr. Yamilex Law MONO # 0.6 103/ul Normal 0.3-0.8 [facility] Comment on above: Performed By: #### C BC #### [facility] [address] [place] [address] Dr. Yamilex Law Monocytes/100 WBC (Bld) 8.8 % Normal 1.7-12.0 [facility] Comment on above: Performed By: #### C BC #### [facility] [address] [address] [address] Yamilex Law NEUT # 4.3 103/ul Normal 1.4-6.5 [facility] Comment on above: Performed By: #### C BC #### [facility] [address] [place], [place] [address] Dr. Yamilex Law Neutrophils/100 WBC (Bld) 63.1 % Normal 43.0-75.0 [facility] Comment on above: Performed By: #### C BC #### [facility] [address] [address] [address] Yamilex Law Platelet mean volume (Bld) [Entitic vol] 8.1 fL Critically low 9.5-13.5 [facility] Comment on above: Performed By: #### C BC #### [facility] [address] [place] [address] Dr. Yamilex Law PLT 246 103/ul Normal 150-450 [facility] Comment on above: Performed By: #### C BC #### [facility] [address] [address] [address] Yamilex Law RBC 4.50 106/ul Critically low 4.70-6.10 [facility] Comment on above: Performed By: #### C BC #### [facility] [address] [address] [address] Yamilex Law WBC 6.8 103/ul Normal 4.0-11.0 [facility] Comment on above: Performed By: #### C BC #### [facility] [address] [address] [address] Yamilex Law Complete Blood Count and Dif teri 05-31-2022 Anisocytosis Ql (Bld) [facility] [employer] Other Basophilic stippling LM Ql (Bld) [place] [employer] Other RBC morphology finding Nom (Bld) [facility] [employer] Other GLYCOHEMOGLOBIN A1Con 2022 ADA RECOMMENDATION SEE BELOW Normal [facility] Comment on above: Result Comment: ADA RECOMMENDED LIMIT 4.0 - 6.0 ADA THERAPEUTIC TARGET < 7.0 ACTION SUGGESTED > 7.0 Performed By: #### A 1C #### [facility] [address] [place] [address] Dr. Yamilex Law Glucose [Mass/Vol] 105 mg/dL Normal [facility] Comment on above: Performed By: #### A 1C #### [facility] [address] [place] [address] Dr. Yamilex Law HbA1c (Bld) [Mass fraction] 5.3 % Normal 4.5-6.2 [facility] Comment on above: Performed By: #### A 1C #### [facility] [address] [place] [address] Dr. Yamilex Law PROF CHEM 8 (BAS METB)on Anion gap [Moles/Vol] 7.0 mmol/L [facility] Comment on above: Performed By: #### B MP #### [facility] [address] [place] [address] Dr. Yamilex Law Calcium [Mass/Vol] 9.0 mg/dL Normal 8.5-10.1 [facility] Comment on above: Performed By: #### B MP #### [facility] [address] [place] [address] Dr. Yamilex Law Chloride [Moles/Vol] 105 mmol/L 98-107 mmol/L [facility] Comment on above: Performed By: #### B MP #### [facility] [address] [place] [address] Dr. Yamilex Law CO2 [Moles/Vol] 30.1 mmol/L Normal 21.0-32.0 [facility] Comment on above: Performed By: #### B MP #### [facility] [address] [place] [address] Dr. Yamilex Law Creatinine [Mass/Vol] 1.01 mg/dL Normal 0.70-1.30 [facility] Comment on above: Performed By: #### B MP #### [facility] [address] [place] [address] Dr. Yamilex Law EGFR-AF SYRIAN >60 Normal >=60 [facility] Comment on above: Performed By: #### B MP #### [facility] [address] [address] [address] Yamilex Law EGFR-NON AF SYRIAN >60 Normal >=60 [facility] Comment on above: Performed By: #### B MP #### [facility] [address] [address] [address] Yamilex Law Glucose [Mass/Vol] 119 mg/dL Critically high 74-106 [facility] Comment on above: Performed By: #### B MP #### [facility] [address] [address] [address] Yamilex Law Potassium [Moles/Vol] 4.1 mmol/L Normal 3.5-5.1 [facility] Comment on above: Performed By: #### B MP #### [facility] [address] [place] [address] Dr. Yamilex Law Sodium [Moles/Vol] 138 mmol/L Normal 136-145 [facility] Comment on above: Performed By: #### B MP #### [facility] [address] [address] [address] Yamilex Law Urea nitrogen [Mass/Vol] 16.0 mg/dL Normal 7.0-18.0 [facility] Comment on above: Performed By: #### B MP #### [facility] [address] [address] [address] Yamilex Law Urea nitrogen/Creatinine [Mass ratio] 15.8 mg/mg [facility] Comment on above: Performed By: #### B MP #### [facility] [address] [address] [address] Yamilex Law CBC AUTO DIFFon 06-08-2021 BASO # 0.1 103/ul Normal 0.0-0.1 [facility] Comment on above: Performed By: #### C BC #### [facility] [address] [address] [address] Yamilex Law Basophils/100 WBC (Bld) 1.7 % Normal 0.2-2.0 [facility] Comment on above: Performed By: #### C BC #### [facility] [address] [place] [address] Dr. Yamilex Law EO # 0.3 103/ul Normal 0.0-0.7 [facility] Comment on above: Performed By: #### C BC #### [facility] [address] [place] [address] Dr. Yamilex Law Eosinophils/100 WBC (Bld) 4.7 % Normal 0.9-7.0 [facility] Comment on above: Performed By: #### C BC #### [facility] [address] [place] [address] Dr. Yamilex Law Erythrocyte distribution width (RBC) [Ratio] 15.5 % Critically high 11.0-15.0 [facility] Comment on above: Performed By: #### C BC #### [facility] [address] [place] [address] Dr. Yamilex Law Hematocrit (Bld) [Volume fraction] 41.7 % Critically low 42.0-54.0 [facility] Comment on above: Performed By: #### C BC #### [facility] [address] [place] [address] Dr. Yamilex Law Hemoglobin (Bld) [Mass/Vol] 13.4 g/dL Critically low 14.0-18.0 [facility] Comment on above: Performed By: #### C BC #### [facility] [address] [place] [address] Dr. Yamilex Law IG # 0.03 10e3/ul Normal 0.00-0.03 [facility] Comment on above: Performed By: #### C BC #### [facility] [address] [place] [address] Dr. Yamilex Law IG % 0.5 % Normal 0.0-0.5 [facility] Comment on above: Performed By: #### C BC #### [facility] [address] [place] [address] Dr. Yamilex Law LYMPH # 1.2 103/ul Normal 1.2-3.8 [facility] Comment on above: Performed By: #### C BC #### [facility] [address] [place] [address] Dr. Yamilex Law Lymphocytes/100 WBC (Bld) 18.9 % Critically low 20.5-60.0 [facility] Comment on above: Performed By: #### C BC #### [facility] [address] [place] [address] Dr. Yamilex Law MANUAL DIFF REQ NO Normal [facility] Comment on above: Performed By: #### C BC #### [facility] [address] [place] [address] Dr. Yamilex Law MCH (RBC) [Entitic mass] 29.8 pg Normal 25.9-34.0 [facility] Comment on above: Performed By: #### C BC #### [facility] [address] [place] [address] Dr. Yamilex Law MCHC (RBC) [Mass/Vol] 32.1 g/dL Normal 29.9-35.2 [facility] Comment on above: Performed By: #### C BC #### [facility] [address] [place] [address] Dr. Yamilex Law MCV (RBC) [Entitic vol] 92.9 fL Normal 80.0-94.0 [facility] Comment on above: Performed By: #### C BC #### [facility] [address] [place] [address] Dr. Yamilex Law MONO # 0.5 103/ul Normal 0.3-0.8 [facility] Comment on above: Performed By: #### C BC #### [facility] [address] [place] [address] Dr. Yamilex Law Monocytes/100 WBC (Bld) 7.0 % Normal 1.7-12.0 [facility] Comment on above: Performed By: #### C BC #### [facility] [address] [place] [address] Dr. Yamilex Law NEUT # 4.4 103/ul Normal 1.4-6.5 [facility] Comment on above: Performed By: #### C BC #### [facility] [address] [address] [address] Yamilex Law Neutrophils/100 WBC (Bld) 67.2 % Normal 43.0-75.0 [facility] Comment on above: Performed By: #### C BC #### [facility] [address] [address] [address] Yamilex Law Platelet mean volume (Bld) [Entitic vol] 8.3 fL Critically low 9.5-13.5 [facility] Comment on above: Performed By: #### C BC #### [facility] [address] [address] [address] Yamilex Law PLT 221 103/ul Normal 150-450 [facility] Comment on above: Performed By: #### C BC #### [facility] [address] [place] [address] Dr. Yamilex Law RBC 4.49 106/ul Critically low 4.70-6.10 [facility] Comment on above: Performed By: #### C BC #### [facility] [address] [place] [address] Dr. Yamilex Law WBC 6.6 103/ul Normal 4.0-11.0 [facility] Comment on above: Performed By: #### C BC #### [facility] [address] [place] [address] Dr. Yamilex Law PROF CHEM 8 (BAS METB)on Anion gap [Moles/Vol] 11.6 mmol/L Normal [facility] Comment on above: Performed By: #### B MP #### [facility] [address] [place] [address] Dr. Yamilex Law Calcium [Mass/Vol] 8.5 mg/dL Normal 8.4-10.2 [facility] Comment on above: Performed By: #### B MP #### [facility] [address] [place] [address] Dr. Yamilex Law Chloride [Moles/Vol] 103 mmol/L Normal 98-107 [facility] Comment on above: Performed By: #### B MP #### [facility] [address] [address] [address] Yamilex Law CO2 [Moles/Vol] 29.4 mmol/L Normal 22.0-30.0 [facility] Comment on above: Performed By: #### B MP #### [facility] [address] [address] [address] Yamilex Law Creatinine [Mass/Vol] 1.10 mg/dL Normal 0.66-1.25 [facility] Comment on above: Performed By: #### B MP #### [facility] [address] [address] [address] Yamilex Law EGFR-AF SYRIAN >60 Normal >=60 [facility] Comment on above: Performed By: #### B MP #### [facility] [address] [place] [address] Dr. Yamilex Law EGFR-NON AF SYRIAN >60 Normal >=60 [facility] Comment on above: Performed By: #### B MP #### [facility] [address] [address] [address] Yamilex Law Glucose [Mass/Vol] 114 mg/dL Critically high 74-106 [facility] Comment on above: Performed By: #### B MP #### [facility] [address] [place] [address] Dr. Yamilex Law Potassium [Moles/Vol] 4.0 mmol/L Normal 3.4-5.0 [facility] Comment on above: Performed By: #### B MP #### [facility] [address] [place] [address] Dr. Yamilex Law Sodium [Moles/Vol] 140 mmol/L Normal 137-145 [facility] Comment on above: Performed By: #### B MP #### [facility] [address] [address] [address] Yamilex Law Urea nitrogen [Mass/Vol] 15.0 mg/dL Normal 9.0-20.0 [facility] Comment on above: Performed By: #### B MP #### [facility] [address] [address] [address] Yamilex Law Urea nitrogen/Creatinine [Mass ratio] 13.6 mg/mg Normal [facility] Comment on above: Performed By: #### B #### [facility] [address] [address] [address] Yamilex Law COVID-19 [facility] 05-19-2021 SARS-CoV-2 (COVID-19) RNA BRANDO+probe Ql (Unsp spec) Negative Normal Negative [facility] Comment on above: Order Comment: Healt hcare Worker?: N Result Comment: Testing for SARS-CoV-2 by RT-PCR This test was developed and its performance characteristics determined by [employer] [facility] and validated at the [facility]. This test has not been FDA cleared or approved. This test has been authorized by FDA under an Emergency Use Authorization (EUA). This test has been validated in accordance with the FDA's Guidance Document (Policy for Diagnostics Testing in Laboratories Certified to Perform High Complexity Testing under CLIA prior to Emergency Use Authorization for Coronavirus Disease-2019 during the Public Health Emergency) issued on July 09, 2019. This test is only authorized for the duration of time the declaration that circumstances exist justifying the authorization of the emergency use of in vitro diagnostic tests for detection of SARS-CoV-2 virus and/or diagnosis of COVID-19 infection under section 564(b)(1) of the Act, 21 U.S.C. 360bbb-3(b)(1), unless the authorization is terminated or revoked sooner. PERFORMED BY: [place] [address] PATHOLOGIST [employer] TECH PRINCESS ALVAREZ M.D. Performed By: #### C OVID 19 [facility] #### [address] CNOVon 07-01-2018 CNOV Office Visit (DERMMN ) REBECA NICOLE ([id number]) 1950 M Date Time Provider Department 07/01/18 10:30 AM SANDY MULLER (JUVENCIO)DERMMN During your visit today, we recorded the following information about you: Basil Al MD, MD 07/02/2018 11:40 AM Signed [facility] Dermatology July 01, 2018 New Patient CC: Rash HPI: Rebeca Nicole is a 67 year old male here for a rash: -January dropped wood on left leg- left a huge bruise -April started on doxycycline -2 days later body rash which he still still has -tried bactrim, clindamycin- had hives to bactrim -has been on prednisone 3 times -rash always comes back worse -triamcinolone, mupirocin have been topicals tried ALLERGIES Allergen Reactions - Bactrim [Sulfametho* Rash Rash - Doxycycline Hives Hives No current outpatient medications on file. No current facility-administered medications for this visit. ROS: Denies fevers, chills, fatigue, unintentional weight loss, skin as above -has been cold inside for a couple weeks PMHx: denies Family History: no family history of rashes PE: There were no vitals taken for this visit. General: Well appearing, alert, in no acute distress and well-hydrated, well nourished Skin: Xavier skin type: I Examination of face, neck, chest, abdomen, back, arms, hands, legs, and feet was performed and noted to be normal with the exception of: -forehead with cluster of pustules on an erythematous base -scattered nummular and excoriated papules and plaques- largest plaques on LE with yellow crusts Impression/Plan: Pleasant 67 year old male with 1. (R21) Rash and nonspecific skin eruption (primary encounter diagnosis) Plan: WOUND CULTURE AND GRAM STAIN, HSV 1,2/VZV AMP MOLECULAR DETECT Punch biopsy x 2 adjacent sites to establish and confirm diagnosis- CLINTON and DIF. Photo taken: Yes Site(s) prepped with alcohol and anesthetized with 1% Lidocaine HCl with Epinephrine 1:100,000 4 mm punch biopsy performed. Hemostasis obtained with 3 interrupted sutures. 1 specimen(s) from left upper back sent for pathology to r/o eczema v BP. Patient tolerated procedure well and without complication. EBL: scant Dressing applied. Follow-up for suture removal in 10-14 days. OK to call with results. Return to clinic in 2-3 months Sandy Willett MD, PGY-4 I have seen and examined Mr. Nicole. I have discussed the case and the management of this patient's care with the Resident. I also have reviewed and agree with the assessment and plan as stated above and agree with all of its relevant components. I supervised the procedure(s) performed as documented above by the Resident. Basil Al MD Referring Provider: SELF [200] Allergies As of Date: 07/01/2018 Noted Allergy Reaction BACTRIM (SULFAMETHOXAZOLE-TRIM ETH*07/01/2018 2 - Rash Comments: Rash DOXYCYCLINE 07/01/2018 4 - Hives Comments: Hives Date Reviewed: 07/01/2018 Reviewed by: Luz Phoenix SKI BASE TRIMMER - Fully Assessed Reason for Visit: Skin Check [1179] Cmt: wound check and rash Primary Visit Diagnosis:Rash and nonspecific skin eruption [R21] Order(s):SURGICAL PATHOLOGY [1892566] Order #: [id number]. #:[id number] WOUND CULTURE AND GRAM STAIN [SQWCUL] Order #: [id number] #:[id number] HSV 1,2/VZV AMP MOLECULAR DETECT [SQHSVVZV] Order #: [id number] FUTURE Problem List As Of Date: 07/01/2018 (None) Disposition: Return in about 2 months (around 08/31/2018) for Brennon OJEDA. Follow-up and Disposition History Recorded Encounter Status:Closed by BASIL AL MD on 07/02/18 Normal [facility] HSV1,2/VZV Amplifon 07-02-19 19 HSV Type 1, HDA Negative for Herpes Simplex virus Type 1 by Molecular Detection. Normal [facility] Comment on above: Performed By: #### H SVVZV #### [facility] [address] [place] [address] HSV Type 2, HDA Negative for Herpes Simplex virus Type 2 by Molecular Detection. Normal [facility] Comment on above: Performed By: #### H SVVZV #### [facility] [employer] [address] [address] Specimen source Nom (Unsp spec) Lesion Normal [facility] Comment on above: Performed By: #### H SVVZV #### [facility] [employer] [address] [address] V Zoster Virus, HDA Negative for Varicel la Zoster virus by Molecular Detection. Normal [facility] Comment on above: Performed By: #### H SVVZV #### [facility] [employer] [address] [address] PROGRESSon 07-01-2018 Protein mass conc HNO ID: [id number] Author: Basil Al MD Service: ? Author Type: Physician Type: Progress Notes Filed: 07/02/2018 11:40 AM Note Text: [facility] Dermatology July 01, 2018 New Patient CC: Rash HPI: Rebeca Nicole is a 67 year old male here for a rash: -January dropped wood on left leg- left a huge bruise -April started on doxycycline -2 days later body rash which he still still has -tried bactrim, clindamycin- had hives to bactrim -has been on prednisone 3 times -rash always comes back worse -triamcinolone, mupirocin have been topicals tried ALLERGIES Allergen Reactions - Bactrim [Sulfametho* Rash Rash - Doxycycline Hives Hives No current outpatient medications on file. No current facility-administered medications for this visit. ROS: Denies fevers, chills, fatigue, unintentional weight loss, skin as above -has been cold inside for a couple weeks PMHx: denies Family History: no family history of rashes PE: There were no vitals taken for this visit. General: Well appearing, alert, in no acute distress and well-hydrated, well nourished Skin: Xavier skin type: I Examination of face, neck, chest, abdomen, back, arms, hands, legs, and feet was performed and noted to be normal with the exception of: -forehead with cluster of pustules on an erythematous base -scattered nummular and excoriated papules and plaques- largest plaques on LE with yellow crusts Impression/Plan: Pleasant 67 year old male with 1. (R21) Rash and nonspecific skin eruption (primary encounter diagnosis) Plan: WOUND CULTURE AND GRAM STAIN, HSV 1,2/VZV AMP MOLECULAR DETECT Punch biopsy x 2 adjacent sites to establish and confirm diagnosis- CLINTON and DIF. Photo taken: Yes Site(s) prepped with alcohol and anesthetized with 1% Lidocaine HCl with Epinephrine 1:100,000 4 mm punch biopsy performed. Hemostasis obtained with 3 interrupted sutures. 1 specimen(s) from left upper back sent for pathology to r/o eczema v BP. Patient tolerated procedure well and without complication. EBL: scant Dressing applied. Follow-up for suture removal in 10-14 days. OK to call with results. Return to clinic in 2-3 months Sandy Willett MD, PGY-4 I have seen and examined Mr. Nicole. I have discussed the case and the management of this patient's care with the Resident. I also have reviewed and agree with the assessment and plan as stated above and agree with all of its relevant components. I supervised the procedure(s) performed as documented above by the Resident. Basil Al MD Normal [facility] SURGICAL PATHOLOGYon 019 SURGICAL PATHOLOGY Specimen originated from [facility] Specimen #: [id number] Submitting Physician: BASIL AL FINAL DIAGNOSIS A. Skin, left upper back, punch biopsy - Subacute spongiotic dermatitis with eosinophils (see comment). B. Skin, left upper back, punch biopsy (DIF) - Negative direct immunofluorescence (see comment). AF/CE/dss 07/02/2018 COMMENT A. Histologic sections demonstrate parakeratosis and serum crust overlying a focally eroded epidermis with acanthosis, spongiosis, and retention of the granular layer. Within the underlying dermis, there is a superficial perivascular inflammatory infiltrate comprised of lymphocytes with eosinophils. Overall, these histologic findings are those of a subacute spongiotic dermatitis with eosinophils and are consistent with an eczematous process such as an eczematous drug eruption, atopic dermatitis, nummular dermatitis, and contact dermatitis. Clinical correlation is recommended. B. Direct immunofluorescent antibody localization demonstrates negative immunoreactivity for immunoglobulins IgG, IgA, IgM and complement C3 on sections of frozen skin. Laboratory Developed Test (LDT) Disclaimer:Positive and negative controls stain appropriately. Performance characteristics of immunohistochemical, immunofluorescent and chromogenic in-situ hybridization tests have been determined by [facility]'s [facility] [place] ([facility] in a manner consistent with CLIA requirements. One or more of these tests have not been cleared or approved by the FDA. [facility] is regulated under CLIA as qualified to perform high-complexity testing. These tests are used for clinical purposes. They should not be regarded as investigational or for research. Morales Li M.D. PhD (Electronic Signature) _ SPECIMEN SUBMITTED A: SKIN, LEFT UPPER BACK, PUNCH BIOPSY B: LEFT UPPER BACK, SKIN DIF CLINICAL DATA RASH SINCE APRIL, STARTED DRUG RASH A). R/O ECZEMA V BP B). R/O B/P GROSS DESCRIPTION A. Received in formalin is a cylindrical segment of skin and subcutaneous tissue measuring 0.4 x 0.4 x 0.5 cm. On the surface there is a 0.3 cm kahn-yellow bumpy area. The specimen is bisected. Totally submitted in formalin in one cassette. Gross examination performed at [address] 07/01/2018 6:33:05 PM B. Received in [facility] is one piece of tissue measuring 0.4 cm in the greatest dimension. Totally frozen for Direct Immunofluorescence. Gross examination performed at [address] 07/01/2018 7:32:29 PM Date of Report: 07/02/2018 Date of Procedure: 07/01/2018 Date of Receipt: 07/01/2018 Submitted by: BASIL AL Location: A61 Diagnostic interpretation performed at [facility], [address] [place] [id number]. CLIA Number: [id number] Normal [facility] Wound Culture/Stainon 2018 Wound Culture/Stain Sp. Request/Comment: - Eswab Smear Result - No organisms seen Few Polymorphonuclear leukocytes Culture Result - Rare skin titi Normal [facility] Comment on above: Performed By: #### W CUL #### [facility] [address] [address] Vital Signs Date Time Vital Sign Value Performing Clinician Facility 08-28-2024 09:26-0400 Body height 198.12 cm [facility] 08-28-2024 09:26-0400 Body mass index (BMI) [Ratio] 35.9 kg/m2 [facility] 08-28-2024 09:26-0400 Body weight 140.84 kg [facility] 08-28-2024 09:26-0400 Diastolic blood pressure 77 mm[Hg] [facility] 08-28-2024 09:26-0400 Heart rate 66 /min [facility] 08-28-2024 09:26-0400 Respiratory rate 12 /min [facility] 08-28-2024 09:26-0400 Systolic blood pressure 117 mm[Hg] [facility] 07-28-2024 10:58-0400 Body height 198.12 cm [facility] 07-28-2024 10:58-0400 Body mass index (BMI) [Ratio] 36.2 kg/m2 [facility] 07-28-2024 10:58-0400 Body weight 142.2 kg [facility] 07-28-2024 10:58-0400 Diastolic blood pressure 88 mm[Hg] [facility] 07-28-2024 10:58-0400 Heart rate 65 /min [facility] 07-28-2024 10:58-0400 Respiratory rate 12 /min [facility] 07-28-2024 10:58-0400 Systolic blood pressure 146 mm[Hg] [facility] 2024 08:42-0400 Body height 198.1 cm Morales Rusher DPM Work Phone: [facility] 2024 08:42-0400 Body mass index (BMI) [Ratio] 36.4 kg/m2 Morales Rusher DPM Work Phone: [facility] 2024 08:42-0400 Body weight 142.88 kg Morales Rusher DPM Work Phone: [facility] 06-22-2024 09:02-0400 Diastolic blood pressure 124 mm[Hg] [facility] 06-22-2024 09:02-0400 Heart rate 63 /min [facility] 06-22-2024 09:02-0400 Systolic blood pressure 221 mm[Hg] [facility] 06-22-2024 09:00-0400 Body height 198.12 cm [facility] 06-22-2024 09:00-0400 Body mass index (BMI) [Ratio] 36.1 kg/m2 [facility] 06-22-2024 09:00-0400 Body weight 141.97 kg [facility] 04-28-2024 10:28-0500 Body height 198.1 cm Morales Rusher DPM Work Phone: [facility] 04-28-2024 10:28-0500 Body mass index (BMI) [Ratio] 36.4 kg/m2 Morales Rusher DPM Work Phone: [facility] 04-28-2024 10:28-0500 Body weight 142.88 kg Morales Rusher DPM Work Phone: [facility] 04-10-2024 08:10-0500 Body temperature 97.11 [degF] Catherine Anitra ISRAEL-POURED PIPE MAKER Work Phone: [facility] 04-10-2024 08:10-0500 Diastolic blood pressure 94 mm[Hg] Catherine Ayoub APRN-POURED PIPE MAKER Work Phone: [facility] 04-10-2024 08:10-0500 Heart rate 75 /min Catherine Ayoub FIRE PROTECTION EQUIPMENT TECHNICIAN-POURED PIPE MAKER Work Phone: [facility] 04-10-2024 08:10-0500 Systolic blood pressure 166 mm[Hg] Catherine Ayoub FIRE PROTECTION EQUIPMENT TECHNICIAN-POURED PIPE MAKER Work Phone: [facility] 02-26-2024 08:24-0500 Body temperature 97.11 [degF] Catherine Ayoub FIRE PROTECTION EQUIPMENT TECHNICIAN-POURED PIPE MAKER Work Phone: [facility] 02-26-2024 08:24-0500 Diastolic blood pressure 98 mm[Hg] Catherine Ayoub FIRE PROTECTION EQUIPMENT TECHNICIAN-POURED PIPE MAKER Work Phone: [facility] 02-26-2024 08:24-0500 Heart rate 61 /min Catherine Ayoub FIRE PROTECTION EQUIPMENT TECHNICIAN-POURED PIPE MAKER Work Phone: [facility] 02-26-2024 08:24-0500 Respiratory rate 16 /min Catherine Ayoub FIRE PROTECTION EQUIPMENT TECHNICIAN-POURED PIPE MAKER Work Phone: [facility] 02-26-2024 08:24-0500 Systolic blood pressure 146 mm[Hg] Catherine Ayoub FIRE PROTECTION EQUIPMENT TECHNICIAN-POURED PIPE MAKER Work Phone: [facility] 02-19-2024 08:09-0500 Body temperature 97.39 [degF] Catherine Ayoub FIRE PROTECTION EQUIPMENT TECHNICIAN-POURED PIPE MAKER Work Phone: [facility] 02-19-2024 08:09-0500 Diastolic blood pressure 82 mm[Hg] Catherine Ayoub FIRE PROTECTION EQUIPMENT TECHNICIAN-POURED PIPE MAKER Work Phone: [facility] 02-19-2024 08:09-0500 Heart rate 75 /min Catherine Ayoub FIRE PROTECTION EQUIPMENT TECHNICIAN-POURED PIPE MAKER Work Phone: [facility] 02-19-2024 08:09-0500 Respiratory rate 16 /min Catherine Ayoub FIRE PROTECTION EQUIPMENT TECHNICIAN-POURED PIPE MAKER Work Phone: [facility] 02-19-2024 08:09-0500 Systolic blood pressure 143 mm[Hg] Catherine Ayoub FIRE PROTECTION EQUIPMENT TECHNICIAN-POURED PIPE MAKER Work Phone: [facility] 02-17-2024 08:23-0500 Body height 198.1 cm Morales Ramon DPM Work Phone: [facility] 02-17-2024 08:23-0500 Body mass index (BMI) [Ratio] 36.4 kg/m2 Morales Ramon DPM Work Phone: [facility] 02-17-2024 08:23-0500 Body weight 142.88 kg Morales Ramon DPM Work Phone: [facility] 02-05-2024 08:08-0400 Body temperature 97.3 [degF] Catherine Ayoub FIRE PROTECTION EQUIPMENT TECHNICIAN-POURED PIPE MAKER Work Phone: [facility] 02-05-2024 08:08-0400 Diastolic blood pressure 87 mm[Hg] Catherine Ayoub FIRE PROTECTION EQUIPMENT TECHNICIAN-POURED PIPE MAKER Work Phone: [facility] 02-05-2024 08:08-0400 Heart rate 82 /min Catherine Ayoub FIRE PROTECTION EQUIPMENT TECHNICIAN-POURED PIPE MAKER Work Phone: [facility] 02-05-2024 08:08-0400 Respiratory rate 16 /min Catherine Ayoub FIRE PROTECTION EQUIPMENT TECHNICIAN-POURED PIPE MAKER Work Phone: [facility] 02-05-2024 08:08-0400 Systolic blood pressure 150 mm[Hg] Catherine Ayoub FIRE PROTECTION EQUIPMENT TECHNICIAN-POURED PIPE MAKER Work Phone: [facility] 02-03-2024 10:09-0400 Body mass index (BMI) [Ratio] 37.44 kg/m2 Lan Cho MD Work Phone: [facility] 02-03-2024 10:09-0400 Body weight 146.97 kg Lan Cho MD Work Phone: [facility] 02-03-2024 10:09-0400 Diastolic blood pressure 84 mm[Hg] Lan Cho MD Work Phone: [facility] 02-03-2024 10:09-0400 Heart rate 79 /min Lan Cho MD Work Phone: [facility] 02-03-2024 10:09-0400 Systolic blood pressure 126 mm[Hg] Lan Cho MD Work Phone: [facility] 01-22-2024 07:00-0400 Body temperature 97.3 [degF] Catherine Ayoub FIRE PROTECTION EQUIPMENT TECHNICIAN-POURED PIPE MAKER Work Phone: [facility] 01-22-2024 07:00-0400 Diastolic blood pressure 92 mm[Hg] Catherine Ayoub FIRE PROTECTION EQUIPMENT TECHNICIAN-POURED PIPE MAKER Work Phone: [facility] 01-22-2024 07:00-0400 Heart rate 74 /min Catherine Ayoub FIRE PROTECTION EQUIPMENT TECHNICIAN-POURED PIPE MAKER Work Phone: [facility] 01-22-2024 07:00-0400 Systolic blood pressure 157 mm[Hg] Catherine Ayoub FIRE PROTECTION EQUIPMENT TECHNICIAN-POURED PIPE MAKER Work Phone: [facility] 01-15-2024 08:06-0400 Body temperature 97.7 [degF] Sheyla Seamus FIRE PROTECTION EQUIPMENT TECHNICIAN-POURED PIPE MAKER Work Phone: [facility] 01-15-2024 08:06-0400 Diastolic blood pressure 88 mm[Hg] Sheyla Seamus FIRE PROTECTION EQUIPMENT TECHNICIAN-POURED PIPE MAKER Work Phone: [facility] 01-15-2024 08:06-0400 Heart rate 90 /min Sheyla Seamus FIRE PROTECTION EQUIPMENT TECHNICIAN-POURED PIPE MAKER Work Phone: [facility] 01-15-2024 08:06-0400 Respiratory rate 16 /min Sheyla Seamus FIRE PROTECTION EQUIPMENT TECHNICIAN-POURED PIPE MAKER Work Phone: [facility] 01-15-2024 08:06-0400 Systolic blood pressure 129 mm[Hg] Sheyla Seamus FIRE PROTECTION EQUIPMENT TECHNICIAN-POURED PIPE MAKER Work Phone: [facility] 01-10-2024 08:27-0400 Body temperature 97.2 [degF] Catherine Ayoub FIRE PROTECTION EQUIPMENT TECHNICIAN-POURED PIPE MAKER Work Phone: [facility] 01-10-2024 08:27-0400 Diastolic blood pressure 90 mm[Hg] Catherine Ayoub FIRE PROTECTION EQUIPMENT TECHNICIAN-POURED PIPE MAKER Work Phone: [facility] 01-10-2024 08:27-0400 Heart rate 86 /min Catherine Ayoub FIRE PROTECTION EQUIPMENT TECHNICIAN-POURED PIPE MAKER Work Phone: [facility] 01-10-2024 08:27-0400 Systolic blood pressure 141 mm[Hg] Catherine Aoyub FIRE PROTECTION EQUIPMENT TECHNICIAN-POURED PIPE MAKER Work Phone: [facility] 01-03-2024 09:32-0400 Body temperature 97.11 [degF] Catherine Ayoub FIRE PROTECTION EQUIPMENT TECHNICIAN-POURED PIPE MAKER Work Phone: [facility] 01-03-2024 09:32-0400 Diastolic blood pressure 108 mm[Hg] Catherine Ayoub FIRE PROTECTION EQUIPMENT TECHNICIAN-POURED PIPE MAKER Work Phone: [facility] 01-03-2024 09:32-0400 Heart rate 74 /min Catherine Ayoub FIRE PROTECTION EQUIPMENT TECHNICIAN-POURED PIPE MAKER Work Phone: [facility] 01-03-2024 09:32-0400 Respiratory rate 16 /min Catherine Ayoub FIRE PROTECTION EQUIPMENT TECHNICIAN-POURED PIPE MAKER Work Phone: [facility] 01-03-2024 09:32-0400 Systolic blood pressure 160 mm[Hg] Catherine Ayoub FIRE PROTECTION EQUIPMENT TECHNICIAN-POURED PIPE MAKER Work Phone: [facility] 12-27-2023 08:15-0400 Body temperature 97.9 [degF] Catherine Ayoub FIRE PROTECTION EQUIPMENT TECHNICIAN-POURED PIPE MAKER Work Phone: [facility] 12-27-2023 08:15-0400 Diastolic blood pressure 99 mm[Hg] Catherine Ayoub FIRE PROTECTION EQUIPMENT TECHNICIAN-POURED PIPE MAKER Work Phone: [facility] 12-27-2023 08:15-0400 Heart rate 82 /min Catherine Ayoub FIRE PROTECTION EQUIPMENT TECHNICIAN-POURED PIPE MAKER Work Phone: [facility] 12-27-2023 08:15-0400 Respiratory rate 16 /min Catherine Ayoub FIRE PROTECTION EQUIPMENT TECHNICIAN-POURED PIPE MAKER Work Phone: [facility] 12-27-2023 08:15-0400 Systolic blood pressure 142 mm[Hg] Catherine Ayoub FIRE PROTECTION EQUIPMENT TECHNICIAN-POURED PIPE MAKER Work Phone: [facility] 12-25-2023 09:02-0400 Body temperature 97.5 [degF] Catherine Ayoub FIRE PROTECTION EQUIPMENT TECHNICIAN-POURED PIPE MAKER Work Phone: [facility] 12-25-2023 09:02-0400 Diastolic blood pressure 90 mm[Hg] Catherine Ayoub FIRE PROTECTION EQUIPMENT TECHNICIAN-POURED PIPE MAKER Work Phone: [facility] 12-25-2023 09:02-0400 Heart rate 73 /min Catherine Ayoub FIRE PROTECTION EQUIPMENT TECHNICIAN-POURED PIPE MAKER Work Phone: [facility] 12-25-2023 09:02-0400 Respiratory rate 16 /min Catherine Ayoub FIRE PROTECTION EQUIPMENT TECHNICIAN-POURED PIPE MAKER Work Phone: [facility] 12-25-2023 09:02-0400 Systolic blood pressure 133 mm[Hg] Catherine Ayoub FIRE PROTECTION EQUIPMENT TECHNICIAN-POURED PIPE MAKER Work Phone: [facility] 12-18-2023 09:00-0400 Body temperature 97.3 [degF] Catherine Ayoub FIRE PROTECTION EQUIPMENT TECHNICIAN-POURED PIPE MAKER Work Phone: [facility] 12-18-2023 09:00-0400 Diastolic blood pressure 91 mm[Hg] Catherine Ayoub FIRE PROTECTION EQUIPMENT TECHNICIAN-POURED PIPE MAKER Work Phone: [facility] 12-18-2023 09:00-0400 Heart rate 68 /min Catherine Ayoub FIRE PROTECTION EQUIPMENT TECHNICIAN-POURED PIPE MAKER Work Phone: [facility] 12-18-2023 09:00-0400 Respiratory rate 16 /min Catherine Ayoub FIRE PROTECTION EQUIPMENT TECHNICIAN-POURED PIPE MAKER Work Phone: [facility] 12-18-2023 09:00-0400 Systolic blood pressure 150 mm[Hg] Catherine Ayoub FIRE PROTECTION EQUIPMENT TECHNICIAN-POURED PIPE MAKER Work Phone: [facility] 12-04-2023 08:48-0400 Body temperature 98.91 [degF] Catherine Ayoub FIRE PROTECTION EQUIPMENT TECHNICIAN-POURED PIPE MAKER Work Phone: [facility] 12-04-2023 08:48-0400 Diastolic blood pressure 82 mm[Hg] Catherine Ayoub FIRE PROTECTION EQUIPMENT TECHNICIAN-POURED PIPE MAKER Work Phone: [facility] 12-04-2023 08:48-0400 Heart rate 79 /min Catherine Ayoub APRN-POURED PIPE MAKER Work Phone: [facility] 12-04-2023 08:48-0400 Respiratory rate 16 /min Catherine Ayoub APRN-POURED PIPE MAKER Work Phone: [facility] 12-04-2023 08:48-0400 Systolic blood pressure 137 mm[Hg] Catherine Ayoub APRN-POURED PIPE MAKER Work Phone: [facility] 09-16-2023 10:14-0400 Body height 200.66 cm [facility] 09-16-2023 10:14-0400 Body mass index (BMI) [Ratio] 36.6 kg/m2 [facility] 09-16-2023 10:14-0400 Body weight 147.41 kg [facility] 09-16-2023 10:14-0400 Diastolic blood pressure 95 mm[Hg] [facility] 09-16-2023 10:14-0400 Heart rate 69 /min [facility] 09-16-2023 10:14-0400 Respiratory rate 12 /min [facility] 09-16-2023 10:14-0400 Systolic blood pressure 152 mm[Hg] [facility] 05-28-2022 09:00-0500 Body height 198.12 cm Gutierrez Ball Other [facility] [employer] Other 05-28-2022 09:00-0500 Body mass index (BMI) [Ratio] 38.43 kg/m2 Gutierrez Ball Other [employer] [facility] [employer] Other 05-28-2022 09:00-0500 Body weight 150.87 kg Gutierrez Ball Other [employer] [facility] [employer] Other 05-28-2022 09:00-0500 Diastolic blood pressure 70 mm[Hg] Gutierrez Ball Other [facility] [employer] Other 05-28-2022 09:00-0500 Respiratory rate 12 /min Gutierrez Ball Other [facility] [employer] Other 05-28-2022 09:00-0500 Systolic blood pressure 118 mm[Hg] Gutierrez Ball Other [facility] [employer] Other 05-09-2022 11:16-0500 Diastolic blood pressure 79 mm[Hg] DO Gutierrez Ball Work Phone: [facility] 05-09-2022 11:16-0500 Heart rate 77 /min DO Gutierrez Ball Work Phone: [facility] 05-09-2022 11:16-0500 Respiratory rate 16 /min DO Gutierrez Ball Work Phone: [facility] 05-09-2022 11:16-0500 SaO2% (BldA) [Mass fraction] 98 % DO Gutierrez Ball Work Phone: [facility] 05-09-2022 11:16-0500 Systolic blood pressure 143 mm[Hg] DO Gutierrez Ball Work Phone: [facility] 05-09-2022 10:07-0500 Body height 198.12 cm DO Gutierrez Ball Work Phone: [facility] 05-09-2022 10:07-0500 Body temperature 97.6 [degF] DO Gutierrez Ball Work Phone: [facility] 05-09-2022 10:07-0500 Body weight 146.51 kg DO Gutierrez Ball Work Phone: [facility] Encounters Encounter Date Encounter Type Care Provider Facility Start: 08-28-2024 End: 08-28-2024 ambulatory [facility] Work Phone: Start: 08-28-2024 End: 08-28-2024 Patient encounter procedure [facility] Work Phone: Start: 08-28-2024 Non-patient / Non-visit [facility] Work Phone: Start: 08-25-2024 End: 08-25-2024 ambulatory YESSENIA DELCID [facility] Start: 08-22-2024 Evaluation and management of inpatient ALIS MARIA EUGENIA [facility] Start: 08-22-2024 Evaluation and management of inpatient HAIM ADARSH [facility] Start: 08-21-2024 Evaluation and management of inpatient [facility] Start: 08-20-2024 Evaluation and management of inpatient MALIKA RAMOS [facility] Start: 08-20-2024 End: 08-22-2024 Evaluation and management of inpatient ANU CINTRON [facility] Start: 08-19-2024 Non-patient / Non-visit [facility] Work Phone: Start: 07-30-2024 Non-patient / Non-visit [facility] Work Phone: Start: 07-28-2024 End: 07-28-2024 ambulatory [facility] Work Phone: Start: 07-28-2024 End: 07-28-2024 Patient encounter procedure [facility] Work Phone: Start: 2024 End: 2024 Bamboo flowsheet Morales Ramon DPM Work Phone: [facility] Start: 2024 End: 2024 Bamboo flowsheet Morales Ramon DPM Work Phone: [facility] Start: 2024 End: 2024 Patient encounter procedure Morales Ramon DPM Work Phone: [facility] Comment on above: Corns and callositie s (Primary Dx); Onychomycosis; Onychodystrophy; Right foot pain; Left foot pain Start: 2024 End: 2024 ambulatory MORALES RAMON Not Available Start: 06-22-2024 End: 06-22-2024 ambulatory [facility] Work Phone: Start: 06-22-2024 End: 06-22-2024 Patient encounter procedure [facility] Work Phone: Start: 04-28-2024 End: 04-28-2024 Bamboo flowsheet Morales Ramon DPM Work Phone: [facility] Start: 04-28-2024 End: 04-28-2024 Bamboo flowsheet Morales Ramon DPM Work Phone: [facility] Start: 04-28-2024 End: 04-28-2024 Office outpatient visit 15 minutes Morales Ramon DPM Work Phone: [facility] Comment on above: Corns and callositie s (Primary Dx); Right foot pain; Onychomycosis Start: 04-28-2024 End: 04-28-2024 ambulatory MORALES RAMON Not Available Start: 04-10-2024 End: 04-10-2024 ambulatory CATHERINE AYOUB [facility] Start: 04-10-2024 End: 04-10-2024 Office outpatient visit 10 minutes Catherine Ayoub FIRE PROTECTION EQUIPMENT TECHNICIAN-POURED PIPE MAKER Work Phone: [facility] Comment on above: Venous stasis ulcer of left ankle limited to breakdown of skin with varicose veins ([facility]-HCC) (Primary Dx) Start: 03-10-2024 End: 03-10-2024 Telephone encounter Lan Cho MD Work Phone: [facility] Comment on above: cancel procedure Start: 02-28-2024 End: 02-28-2024 Refill Lan Cho MD Work Phone: [facility] Comment on above: Pre-operative anxiet y (Primary Dx); Venous stasis ulcer of left ankle limited to breakdown of skin with varicose veins ([facility]-HCC) procedure time law e Start: 02-26-2024 End: 02-26-2024 ambulatory CATHERINE AYOUB [facility] Start: 02-26-2024 End: 02-26-2024 Office outpatient visit 10 minutes Catherine Ayoub FIRE PROTECTION EQUIPMENT TECHNICIAN-POURED PIPE MAKER Work Phone: [facility] Comment on above: Venous stasis ulcer of left ankle limited to breakdown of skin, unspecified whether varicose veins present ([facility]-HCC) (Primary Dx); Edema of left lower leg Start: 02-19-2024 End: 02-19-2024 ambulatory CATHERINE AYOUB [facility] Start: 02-19-2024 End: 02-19-2024 Office outpatient visit 15 minutes Catherine Ayoub FIRE PROTECTION EQUIPMENT TECHNICIAN-POURED PIPE MAKER Work Phone: [facility] Comment on above: Venous stasis ulcer of left ankle limited to breakdown of skin with varicose veins ([facility]-H[facility]) (Primary Dx); Rash due to allergy Start: 02-17-2024 End: 02-17-2024 Bamboo flowsheet Morales Ramon DPM Work Phone: [facility] Start: 02-17-2024 End: 02-17-2024 Bamboo flowsheet Morales Ramon DPM Work Phone: [facility] Start: 02-17-2024 End: 02-17-2024 Patient encounter procedure Morales Ramon DPM Work Phone: [facility] Comment on above: Corns and callositie s (Primary Dx); Onychomycosis; Right foot pain Start: 02-17-2024 End: 02-17-2024 ambulatory MORALES RAMON Not Available Start: 02-14-2024 End: 02-14-2024 Orders Only Catherine Ayoub FIRE PROTECTION EQUIPMENT TECHNICIAN-POURED PIPE MAKER Work Phone: [facility] Comment on above: Venous stasis ulcer of left ankle limited to breakdown of skin with varicose veins (CMS-HCC) Start: 02-05-2024 End: 02-05-2024 ambulatory CATHERINE Kalpana TOLEDOEY [facility] Comment on above: Venous stasis ulcer of left ankle limited to breakdown of skin with varicose veins (CMS-HCC) (Primary Dx); Venous insufficiency of left lower extremity; Varicose veins of left lower extremity with pain; Phlebitis Start: 02-05-2024 End: 02-05-2024 Office outpatient visit 15 minutes Catherine Acuna Anitra [employer]RE PROTECTION EQUIPMENT TECHNICIAN-POURED PIPE MAKER Work Phone: [facility] Comment on above: Venous stasis ulcer of left ankle limited to breakdown of skin with varicose veins (CMS-HCC) (Primary Dx); Edema of left lower leg Start: 02-03-2024 End: 02-03-2024 Office outpatient visit 25 minutes Lan Cho MD Work Phone: [facility] Comment on above: Venous insufficiency of left lower extremity (Primary Dx); Venous stasis ulcer of left ankle limited to breakdown of skin with varicose veins (CMS-HCC) Start: 02-03-2024 End: 02-03-[address] [facility] Start: 01-22-2024 End: 01-22-2024 Office outpatient visit 15 minutes Catherine Kalpana Ayoub FIRE PROTECTION EQUIPMENT TECHNICIAN-POURED PIPE MAKER Work Phone: [facility] Comment on above: Venous stasis ulcer of left ankle limited to breakdown of skin with varicose veins (CMS-HCC) (Primary Dx) Start: 01-22-2024 End: 01-22-2024 ambulatory CATHERINE Kalpana AYOUB [facility] Start: 01-15-2024 End: 01-15-2024 Office outpatient visit 15 minutes Catherine Ayoub FIRE PROTECTION EQUIPMENT TECHNICIAN-POURED PIPE MAKER Work Phone: [facility] Comment on above: Venous stasis ulcer of left ankle limited to breakdown of skin with varicose veins (CMS-HCC) (Primary Dx) Start: 01-15-2024 End: 01-15-[address] [facility] Start: 01-10-2024 End: 01-10-2024 Office outpatient visit 15 minutes Catherine Kalpana [place] FIRE PROTECTION EQUIPMENT TECHNICIAN-POURED PIPE MAKER Work Phone: [facility] Comment on above: Venous stasis ulcer of left ankle limited to breakdown of skin with varicose veins (CMS-HCC) (Primary Dx) Start: 01-10-2024 End: 01-10-2024 ambulatory CATHERINE AYOUB [facility] Start: 01-03-2024 End: 01-03-2024 Office outpatient visit 10 minutes Catherine Kalpana [place] FIRE PROTECTION EQUIPMENT TECHNICIAN-POURED PIPE MAKER Work Phone: [facility] Comment on above: Venous stasis ulcer of left ankle limited to breakdown of skin with varicose veins (CMS-HCC) (Primary Dx); Venous stasis ulcer of left ankle limited to breakdown of skin, unspecified whether varicose veins present (CMS-HCC) Start: 01-03-2024 End: 01-03-2024 ambulatory CATHERINE AYOUB [facility] Start: 12-27-2023 End: 12-27-2023 Patient encounter procedure Catherine Ayoub FIRE PROTECTION EQUIPMENT TECHNICIAN-POURED PIPE MAKER Work Phone: [facility] Comment on above: Venous stasis ulcer of left ankle limited to breakdown of skin without varicose veins (CMS-HCC) (Primary Dx) Start: 12-27-2023 End: 12-27-2023 ambulatory GUTIERREZ LARRY [facility] Start: 12-26-2023 End: 12-26-2023 ambulatory CATHERINE AYOUB [facility] Start: 12-25-2023 End: 12-25-2023 Office outpatient visit 10 minutes Catherine Ayoub FIRE PROTECTION EQUIPMENT TECHNICIAN-POURED PIPE MAKER Work Phone: [facility] Comment on above: Venous stasis ulcer of left ankle limited to breakdown of skin, unspecified whether varicose veins present (CMS-HCC) (Primary Dx); Venous stasis ulcer of left ankle limited to breakdown of skin without varicose veins ([facility]-HCC) Start: 12-25-2023 End: 12-25-2023 ambulatory CATHERINE AYOUB [facility] Start: 12-18-2023 End: 12-18-2023 Office outpatient visit 15 minutes Catherine Ayoub FIRE PROTECTION EQUIPMENT TECHNICIAN-POURED PIPE MAKER Work Phone: [facility] Comment on above: Venous stasis ulcer of left ankle limited to breakdown of skin without varicose veins ([facility]-HCC) (Primary Dx); Edema of left lower leg Start: 12-18-2023 End: 12-18-2023 ambulatory CATHERINE AYOUB [facility] Start: 12-05-2023 End: 12-05-2023 Orders Only Catherine Ayoub FIRE PROTECTION EQUIPMENT TECHNICIAN-POURED PIPE MAKER Work Phone: [facility] Comment on above: Venous stasis ulcer of left ankle limited to breakdown of skin, unspecified whether varicose veins present ([facility]-HCC) (Primary Dx) Start: 12-04-2023 End: 12-04-2023 Office outpatient new 20 minutes Catherine Ayoub FIRE PROTECTION EQUIPMENT TECHNICIAN-POURED PIPE MAKER Work Phone: [facility] Comment on above: Traumatic open wound of left lower leg with delayed healing (Primary Dx); Edema of left lower leg; Venous stasis ulcer of left ankle limited to breakdown of skin, unspecified whether varicose veins present ([facility]-HCC) Start: 12-04-2023 End: 12-04-2023 ambulatory CATHERINE AYOUB [facility] Start: 11-19-2023 End: 11-19-2023 ambulatory MORALES S RUSHER Not Available Start: 11-12-2023 End: 11-12-2023 ambulatory MORALES S RUSHER Not Available Start: 11-05-2023 End: 11-05-2023 ambulatory MORALES S RUSHER Not Available Start: 09-16-2023 End: 09-16-2023 ambulatory [facility] Work Phone: Start: 09-16-2023 End: 09-16-2023 Patient encounter procedure [facility] Work Phone: Start: 08-13-2023 End: 08-13-2023 ambulatory MORALES Hurt ANSHUL Not Available Start: 11-01-2022 End: 11-01-2022 ambulatory Reji Roy Other [employer] Other Start: 11-01-2022 Telephone encounter Reji Gomez [facility] Start: 07-18-2022 End: 07-18-2022 ambulatory Gutierrez Larry Other [employer] Other Start: 07-18-2022 Office outpatient vi sit 15 minutes Gutierrez Larry [facility] Start: 05-31-2022 End: 06-01-[address] GUTIERREZ LARRY Facility: Start: 05-28-2022 End: 05-28-2022 ambulatory Gutierrez Larry Other [employer] Other Start: 05-28-2022 Patient encounter procedure Gutierrez Larry [facility] Start: 05-09-2022 Telephone encounter Gutierrez Gomez [facility] Start: 05-09-2022 End: 05-09-2022 ambulatory Reji Roy Facility:[facility] Start: 05-09-2022 End: 05-09-2022 Admission to same day surgery center DO Gutierrez Larry Work Phone: [facility] Work Phone: Start: 05-09-2022 End: 05-09-2022 ambulatory DO Gutierrez Laron Work Phone: [facility] Work Phone: Start: 12-26-2021 End: 12-26-2021 ambulatory Reji Roy Other [employer] Other Start: 12-26-2021 Telephone encounter Reji [facility] Start: 09-21-2021 End: 09-21-2021 ambulatory Reji Roy Other [employer] Other Start: 09-21-2021 Telephone encounter Reji Roy [facility] Start: 06-13-2021 End: 06-14-[address] GUTIERREZ LARRY Facility:[facility] Start: 06-08-2021 End: 06-09-[address] GUTIERREZ LARRY Facility:[facility] Start: 05-23-2021 End: 05-23-2021 ambulatory Reji Roy Facility:[facility] Start: 05-19-2021 End: 05-19-2021 ambulatory Reji Roy Facility:[facility] Start: 12-26-2020 Adult health examination Reji Roy Other [employer] Other Start: 07-01-2018 End: 07-10-2018 Patient encounter procedure [facility] Procedures Date Procedure Procedure Detail Performing Clinician Start: 02-05-2024 NURSING COMMUNICATION M adeel Acuna [place] FIRE PROTECTION EQUIPMENT TECHNICIAN-POURED PIPE MAKER Work Phone: Start: 01-22-2024 NURSING COMMUNICATION M adeel P [place] FIRE PROTECTION EQUIPMENT TECHNICIAN-POURED PIPE MAKER Work Phone: Start: 01-15-2024 NURSING COMMUNICATION M adeel P [place] FIRE PROTECTION EQUIPMENT TECHNICIAN-POURED PIPE MAKER Work Phone: Start: 01-10-2024 NURSING COMMUNICATION M adeel Kalpana Anitra FIRE PROTECTION EQUIPMENT TECHNICIAN-POURED PIPE MAKER Work Phone: Start: 01-03-2024 NURSING COMMUNICATION M adeel Acuna Anitra FIRE PROTECTION EQUIPMENT TECHNICIAN-POURED PIPE MAKER Work Phone: Start: 12-27-2023 NURSING COMMUNICATION M adeel Kalpana [place] FIRE PROTECTION EQUIPMENT TECHNICIAN-POURED PIPE MAKER Work Phone: Start: 12-18-2023 NURSING COMMUNICATION M adeel Acuna [place] FIRE PROTECTION EQUIPMENT TECHNICIAN-POURED PIPE MAKER Work Phone: Start: 12-04-2023 NURSING COMMUNICATION M adeel Acuna [place] FIRE PROTECTION EQUIPMENT TECHNICIAN-POURED PIPE MAKER Work Phone: Start: 05-31-[address] ISMAEL LARRY Comment on above: Performed By: #### P [facility] #### [facility] [address] [address] [address] Yamilex Law Start: 05-09-2022 Colonoscopy DO Jackie Larry Work Phone: Start: 11-27-2018 H/O: artificial joint C amderic Roy Other Start: 12-06-2016 Screening for malign ant neoplasm of colon Reji Roy Other Start: 04-12-2016 General examination of patient Reji Roy Other Start: 04-12-2016 Hyperlipidemia screening Reji Roy Other Start: 04-12-2016 Screening for malign ant neoplasm of prostate Reji Roy Other Depression screening Reji Roy Other Screening for malign ant neoplasm of prostate Reji Roy Other Plan of Treatment Date Care Activity Detail Author Start: 04-10-2025 Tobacco Screening Tobacco Screening [facility] Start: 02-25-2025 Tobacco Screening Tobacco Screening [facility] Start: 02-18-2025 Tobacco Screening Tobacco Screening [facility] Start: 02-04-2025 Tobacco Screening Tobacco Screening [facility] Start: 02-02-2025 Adult BMI Screening Adult BMI Screen ing [facility] Start: 01-21-2025 Tobacco Screening Tobacco Screening [facility] Start: 01-14-2025 Tobacco Screening Tobacco Screening [facility] Start: 01-09-2025 Tobacco Screening Tobacco Screening [facility] Start: 12-24-2024 Tobacco Screening Tobacco Screening [facility] Start: 12-17-2024 Tobacco Screening Tobacco Screening [facility] Start: 12-03-2024 Tobacco Screening [facility] Start: 2024 End: 2024 Patient encounter procedure 2024 8:45 AM EDT Office Visit [facility] [address] [place] [address] Morales Ramon, DPM [address] [place] [address] Arrived [facility] Comment on above: Arrived Start: 04-28-2024 End: 04-28-2024 Patient encounter procedure 04/28/2024 10:30 AM EST [facility] [address] [place] [phone] Morales Ramon, DPM [address] [place] [address] Arrived [facility] Comment on above: Arrived Start: 03-25-2024 End: 03-25-2024 Patient encounter procedure 03/25/2024 8:00 AM EST Office Visit [facility] [address] [place] [phone] Catherine Ayoub, FIRE PROTECTION EQUIPMENT TECHNICIAN-POURED PIPE MAKER [address] [place] [address] [facility] Start: 03-18-2024 End: 03-18-[address] [facility] Start: 03-13-2024 End: 03-13-2024 Patient encounter procedure 03/13/2024 3:30 PM EST Procedure [facility] [address] [facility] [place] [phone] Lan Cho MD [address] [facility] [address] [place] [address] [facility] Start: 02-26-2024 End: 02-26-2024 Patient encounter procedure 02/26/2024 8:20 AM EST Office Visit [facility] [address] [place] [phone] Catherine Ayoub, FIRE PROTECTION EQUIPMENT TECHNICIAN-POURED PIPE MAKER [address] [place] [address] [facility] Start: 02-19-2024 End: 02-19-2024 Patient encounter procedure 02/19/2024 8:00 AM EST Office Visit [facility] [address] [place] [phone] Catherine Ayoub, FIRE PROTECTION EQUIPMENT TECHNICIAN-POURED PIPE MAKER [address] [place] [address] [facility] Start: 02-17-2024 End: 02-17-2024 Patient encounter procedure 02/17/2024 8:30 AM EST Office [facility] [address] [place] [phone] Morales Ramon, DPM [address] [place], [place] [phone] Arrived [facility] Comment on above: Arrived Start: 02-05-2024 End: 02-04-2025 US.doppler Lower extremity vein - left Vas venous duplex lwr single left Vascular Ultrasound Routine Venous stasis ulcer of left ankle limited to breakdown of skin with varicose veins (CMS-HCC) Venous insufficiency of left lower extremity Varicose veins of left lower extremity with pain Phlebitis Expected: 02/05/2024, Expires: 02/04/2025 [place] Work Phone: Comment on above: Expected: 02/05/2024 , Expires: 02/04/2025 Start: 02-05-2024 End: 02-05-2024 Patient encounter procedure 02/05/2024 8:00 AM EDT Office Visit [facility] [address] [place] [phone] Catherine Ayoub, FIRE PROTECTION EQUIPMENT TECHNICIAN-[place] [address] [facility] Start: 02-03-2024 End: 02-02-2025 Guidance for laser ablation of Extremity vein Vein Treatment Vascular Ultrasound Routine Venous stasis ulcer of left ankle limited to breakdown of skin with varicose veins ([facility]-HCC) Venous insufficiency of left lower extremity Expected: 02/03/2024, Expires: 02/02/2025 [place] Work Phone: Comment on above: Expected: 02/03/2024 , Expires: 02/02/2025 Start: 02-03-2024 End: 02-03-2024 Patient encounter procedure 02/03/2024 10:00 AM EDT Office Visit [facility] [place] [address] Lan Cho MD [address] [facility] [address] [place] [address] [facility] Start: 01-22-2024 End: 01-22-2024 Patient encounter procedure 01/22/2024 8:00 AM EDT Office Visit [facility] [address] [place] [phone] Catherine Ayoub, FIRE PROTECTION EQUIPMENT TECHNICIAN-POURED PIPE MAKER [address] [place] [address] [facility] Start: 01-15-2024 End: 01-15-2024 Patient encounter procedure 01/15/2024 8:00 AM EDT Office Visit [facility] [address] [place] [phone] Catherine Ayoub, FIRE PROTECTION EQUIPMENT TECHNICIAN-POURED PIPE MAKER [address] [place] [address], FIRE PROTECTION EQUIPMENT TECHNICIAN-POURED PIPE MAKER [address] [place] [address] [facility] Start: 01-10-2024 End: 01-10-2024 Patient encounter procedure 01/10/2024 8:20 AM EDT Office Visit [facility] [address] [place] [address] Catherine Ayoub, FIRE PROTECTION EQUIPMENT TECHNICIAN-POURED PIPE MAKER [address] [place] [address] [facility] Start: 01-03-2024 End: 01-03-2024 Patient encounter procedure 01/03/2024 9:30 AM EDT Office Visit [facility] [address] [facility] [place] [address] Catherine Ayoub, FIRE PROTECTION EQUIPMENT TECHNICIAN-POURED PIPE MAKER [address] [place] [address] [facility] Start: 01-01-2024 End: 01-01-2024 Patient encounter procedure 01/01/2024 9:00 AM EDT Office Visit [facility] [address] [place] [address] Catherine Ayoub, FIRE PROTECTION EQUIPMENT TECHNICIAN-POURED PIPE MAKER [address] [place] [address] [facility] Start: 12-27-2023 End: 12-27-2023 Patient encounter procedure 12/27/2023 8:00 AM EDT Office Visit [facility] [address] [place] [address] Catherine Ayoub, FIRE PROTECTION EQUIPMENT TECHNICIAN-POURED PIPE MAKER [address] [place] [address] [facility] Start: 12-26-2023 End: 12-26-2023 Patient encounter procedure 12/26/2023 1:30 PM EDT Appointment [facility] [address] [place] [address] Catherine Ayoub, FIRE PROTECTION EQUIPMENT TECHNICIAN-POURED PIPE MAKER [address] [place] [address] [facility] Start: 12-25-2023 End: 12-25-2023 Patient encounter procedure 12/25/2023 9:00 AM EDT Office Visit [facility] [address] [facility] [place] [phone] Catherine Ayoub, FIRE PROTECTION EQUIPMENT TECHNICIAN-POURED PIPE MAKER [address] [place] [address] [facility] Start: 12-18-2023 End: 12-17-2024 US.doppler Lower extremity vein - left Vas venous duplex insufficiency lwr lt Vascular Ultrasound Routine Venous stasis ulcer of left ankle limited to breakdown of skin without varicose veins (CMS-HCC) Edema of left lower leg Expected: 12/18/2023, Expires: 12/17/2024 [place] Work Phone: Comment on above: Expected: 12/18/2023 , Expires: 12/17/2024 Start: 12-18-2023 End: 12-18-2023 Patient encounter procedure 12/18/2023 9:00 AM EDT Office Visit [facility] [address] [place] [phone] Catherine Ayoub, FIRE PROTECTION EQUIPMENT TECHNICIAN-POURED PIPE MAKER [address] [place] [address] [facility] Start: 12-08-2023 Influenza vaccination Influenza Vacc ine [facility] Start: 05-09-2022 [facility] Start: 07-09-2015 Abdominal aortic aneurysm screening Abdominal Aortic Aneurysm (AAA) Screen [facility] Start: 07-09-2015 Fall Risk Screening Fall Risk Screen ing [facility] Start: 02-01-2009 DTaP,Tdap and Td Vaccines (2 - Tdap) DTaP,Tdap and Td Vaccines (2 - Tdap) [facility] Start: 2000 Administration of varicella zoster vaccine Zoster (Shingles) Vaccine (1 of 2) [facility] Start: 1968 Adult BMI Screening Adult BMI Screen ing [facility] Start: 1962 Depression Screening Depression Scre ening [facility] Start: 1950 Medicare Annual Well ness Visit Medicare Annual Wellness Visit [facility] Holter monitor study [facility] Patient Education Hemorrhoids Diverticulosis [facility] Work Phone: [facility] Immunizations Immunization Date Immunization Notes Care Provider Fa cility 05-13-2018 pneumococcal conjuga te vaccine, 13 valent Gutierrez Larry Other [facility] 05-13-2018 pneumococcal Conjuga te, unspecified formulation; Translations: [Need for prophylactic vaccination against Streptococcus pneumoniae (pneumococcus)] Reji Roy Other [employer] Other 02-01-1999 diphtheria and tetan us toxoids, adsorbed for pediatric use Morales Ramon DPM Work Phone: [facility] Payers Date Payer Category Payer Medicaid AETNA MEDICARE A DVANTAGE [id number] 2021 Self-pay [id number] 2016 Medicare AETNA MEDICARE A ETNA MEDICARE PLAN (PPO) [id number] 2016-Present [phone] [address] [place] [address] [id number] 2016 Medicare HMO AETNA MEDICARE [id number] 1959 Medicare [id number] 1950 Unknown [id number] 2.16840.1.326989.3.579.2. 593 1950 Unknown [id number] 2.16840.1.167563.3.579.2. 593 1950 Unknown [id number] 2.16840.1.696007.3.579.2. 593 1950 Unknown [id number] 2.0.1.829279.3.579.2. 593 1950 Unknown [id number] 2.16.840.1.521103.3.579.2. 1285 1950 Unknown [id number] 2.16.840.1.693419.3.579.2. 1285 1950 Unknown [id number] 2.16.840.1.761501.3.579.2. 1285 1950 Unknown [id number] 2.16.840.1.240182.3.579.2. 1285 1950 Unknown [id number] 2.16.840.1.867686.3.579.2. 1285 1950 Unknown [id number] 2.16.840.1.006858.3.579.2. 1285 1950 Unknown [id number] 2.16.840.1.162548.3.579.2. 1285 1950 Unknown [id number] 2.16.840.1.798878.3.579.2. 1285 1950 Unknown [id number] 2.16.840.1.835002.3.579.2. 1285 1950 Unknown [id number] 2.16.840.1.434252.3.579.2. 1285 1950 Unknown [id number] 2.16.840.1.080132.3.579.2. 1285 1950 Unknown [id number] 2.16.840.1.094508.3.579.2. 1285 1950 Unknown [id number] 2.16.840.1.450867.3.579.2. 1285 1950 Unknown [id number] 2.16.840.1.181227.3.579.2. 1285 1950 Unknown [id number] 2.16.840.1.936983.3.579.2. 1258 1950 Unknown [id number] 2.16.840.1.763226.3.579.2. 1259 1950 Unknown [id number] 2.16.840.1.547330.3.579.2. 1259 1950 Unknown [id number] 2.16.840.1.468905.3.579.2. 1259 1950 Unknown [id number] 2.16.840.1.542786.3.579.2. 9 1950 Unknown [id number] 2.16.840.1.325136.3.579.2. 9 1950 Unknown [id number] 2.16.840.1.829740.3.579.2. 1259 Medicare Medicare [id number] Private Health Insurance Aetna Mcr PFFS N on Pt [id number] Unknown [facility] EB0 [id number] Unknown [id number] 2.16.840.1.000543.3.579.2. 531 Unknown [id number] 2.16.840.1.339722.3.579.2. 531 Unknown [id number] 2.16.840.1.536619.3.579.2. 531 Social History Date Type Detail Facility Start: 11-19-2023 End: 04-28-2024 Sex Assigned At [employer] Other Start: 05-09-2022 End: 05-09-2022 Tobacco smoking status NCIS Ex-smoker (finding) [facility] Start: 1950 Sex Assigned At Male [facility] Start: 04-29-1970 End: 04-08-1984 History of tobacco use Current smoker [facility] Start: 04-29-1970 End: 04-08-1984 History of tobacco use Cigarette Smoker [facility] Start: 11-05-2023 End: 04-28-2024 Cigarettes smoked current (pack per day) - Reported 1.5 [facility] Start: 11-05-2023 End: 01-10-2024 Tobacco use and exposure Smokeless tobacco non-user [facility] Start: 11-19-2023 End: 2024 Alcoholic beverage intake Ex-drinker (finding) [facility] Start: 05-03-2023 Tobacco Comment Last smoked >10 years [facility] Start: 11-05-2023 Alcohol Comment Occasionally [facility] Start: 1950 Sex assigned at Not on file [employer] Start: 02-26-2024 End: 04-10-2024 Alcoholic beverage intake Lifetime non-drinker (finding) [facility] Start: 11-11-2014 End: 08-28-2024 Sex Male (finding) [facility] Procedure Code Equipment Code Equipment Origin al Text Equipment Identifier Dates Fusion, spine, lumbar, XLIF STRATOFUSE DBM 10CC FDA Start: 03-02-2019 Fusion, spine, lumbar, XLIF Bone-screw internal spinal fixation system, non-sterile ()[id number] FDA Start: 03-02-2019 Fusion, spine, lumbar, XLIF Bone-screw internal spinal fixation system, non-sterile ()[id number] FDA Start: 03-02-2019 Fusion, spine, lumbar, XLIF Bone-screw internal spinal fixation system, non-sterile ()[id number] FDA Start: 03-02-2019 Fusion, spine, lumbar, XLIF STRATOFUSE DBM 10CC FDA Start: 03-02-2019 Fusion, spine, lumbar, XLIF Bone-screw internal spinal fixation system, non-sterile ()[id number] FDA Start: 03-02-2019 Fusion, spine, lumbar, XLIF Bone-screw internal spinal fixation system, non-sterile ()[id number] FDA Start: 03-02-2019 Fusion, spine, lumbar, XLIF Bone-screw internal spinal fixation system, non-sterile ()[id number] FDA Start: 03-02-2019 Fusion, spine, lumbar, XLIF STRATOFUSE DBM 5CC FDA Start: 03-02-2019 Fusion, spine, lumbar, XLIF XLIF 3 LEVEL MAS REDUCTION FDA Start: 03-02-2019 Fusion, spine, lumbar, XLIF Spinal fusion graft kit ()[id number] FDA Start: 03-02-2019 Fusion, spine, lumbar, XLIF Spinal fusion graft kit ()[id number] FDA Start: 03-02-2019 Fusion, spine, lumbar, XLIF Metallic spinal fusion cage, non-sterile ()[id number] FDA Start: 03-02-2019 Fusion, spine, lumbar, XLIF Metallic spinal fusion cage, non-sterile ()[id number] FDA Start: 03-02-2019 Fusion, spine, lumbar, XLIF Metallic spinal fusion cage, non-sterile ()[id number] FDA Start: 03-02-2019 Fusion, spine, lumbar, XLIF STRATOFUSE DBM 10CC FDA Start: 03-02-2019 Fusion, spine, lumbar, XLIF STRATOFUSE DBM 10CC FDA Start: 03-02-2019 Fusion, spine, lumbar, XLIF STRATOFUSE DBM 5CC FDA Start: 03-02-2019 Fusion, spine, lumbar, XLIF XLIF 3 LEVEL MAS REDUCTION FDA Start: 03-02-2019 Fusion, spine, lumbar, XLIF STRATOFUSE DBM 10CC FDA Start: 03-02-2019 Fusion, spine, lumbar, XLIF STRATOFUSE DBM 10CC FDA Start: 03-02-2019 Fusion, spine, lumbar, XLIF STRATOFUSE DBM 5CC FDA Start: 03-02-2019 Fusion, spine, lumbar, XLIF XLIF 3 LEVEL MAS REDUCTION FDA Start: 03-02-2019 Fusion, spine, lumbar, XLIF STRATOFUSE DBM 10CC FDA Start: 03-02-2019 Fusion, spine, lumbar, XLIF STRATOFUSE DBM 10CC FDA Start: 03-02-2019 Fusion, spine, lumbar, XLIF STRATOFUSE DBM 5CC FDA Start: 03-02-2019 Fusion, spine, lumbar, XLIF XLIF 3 LEVEL MAS REDUCTION FDA Start: 03-02-2019 Fusion, spine, lumbar, XLIF STRATOFUSE DBM 10CC FDA Start: 03-02-2019 Fusion, spine, lumbar, XLIF STRATOFUSE DBM 10CC FDA Start: 03-02-2019 Fusion, spine, lumbar, XLIF STRATOFUSE DBM 5CC FDA Start: 03-02-2019 Fusion, spine, lumbar, XLIF XLIF 3 LEVEL MAS REDUCTION FDA Start: 03-02-2019 Goals Date Patient Goal Desired Activity /State Clinical Notes 12-26-2021 to 08-25-2024 Morales Hurt Yenny, DPM - 2024 8:45 AM EDT Note Date & Type Note Facility 08-25-2024 Note Cardiovascular Medic ine [facility] SUBJECTIVE Chief Complaint Patient presents with Atrial Flutter Hospital Follow-up Rebeca Nicole is a 74 y.o. male here for hospital follow-up. His Bogdan accompanied him today. 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 PMHx: A.flutter s/p CTI ablation 08/21/24, HTN, HLD, PVCs HPI Patient was recently transferred from [facility] to [facility] due to suspected V-tach vs tachyarrhythmia/SVT noted on his recent event monitor. He was seen by EP cardiology, Dr. Wright who reviewed his event monitor and telemetry strips. Dr. Wright noted pt had episodes of SVT with atrial tachycardia with 2:1 ventricular conduction. He underwent an EP study on 08/21/24 which found a.flutter and he underwent an a.flutter ablation. Prior to this admission, he had noted palpitations for a few months prior. Typically would happen at night, when he would lay on his left side. He would bare down and sx's would improve. Since his ablation, he still has been having intermittent palpitations. Have been occurring intermittently. Feels like fluttering, sometimes he will feel a strong few beats. Lasts 10-15 seconds and then he can improve sx's by tightening his core. They seem to be a little better than a few months ago. He notes some dyspnea with heavier exertion. He has to take his time with heavier exertion. Denies c/o CP, orthopnea, PND, LE edema, dizziness/LH, syncope. Discharge Summary Final Discharge Diagnosis: Supraventricular tachycardia; ddx: AVNRT vs aflutter PVCs HTN Obesity Admission Diagnosis: V-tach (CMS/HCC) [I47.20] Hospital course: Cardiology and EP saw the patient Underwent afib ablation on . Echo was repeated on morning, cardiology was ok with dc, he was sent home with metorprolol and apixaban Follow up in ep clinic to consider for watchman as he has neuropathy and tendency to fall. This was discussed with EP fellow. ECHO on Left Ventricle: Global left ventricular systolic function is normal. The EF is 55 % visually. Right Ventricle: The right ventricle is mildly enlarged. Right ventricular systolic function appears normal. Pericardium: No pericardial effusion. 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 Social History Tobacco Use Smoking status: Former Types: Cigarettes Smokeless tobacco: Never Substance Use Topics Alcohol use: Not Currently Drug use: Never Allergies Allergen Reactions Doxycycline Hives Prednisone Unknown Latex, Natural Rubber Rash Sulfa (Sulfonamide Antibiotics) Rash Sulfamethoxazole-Trimethoprim Rash and Unknown Rash OBJECTIVE Visit Vitals BP 142/85 (BP Location: Right arm, Patient Position: Sitting) Pulse 57 Ht 1.829 m (6') Wt (!) 143 kg (316 lb) SpO2 98% BMI 42.86 kg/m??? Smoking Status Former BSA 2.7 m??? Medications: Current Outpatient Medications: apixaban (Eliquis) 5 mg tablet, Take 1 tablet (5 mg) by mouth two times daily., Disp: 60 tablet, Rfl: 1 azithromycin (Zithromax) 250 mg tablet, Take 250 mg by mouth every other day., Disp: , Rfl: metoprolol succinate XL (Toprol-XL) 25 mg 24 hr tablet, Take 1 tablet (25 mg) by mouth in the morning. Do not crush or chew., Disp: 30 tablet, Rfl: 1 omeprazole (PriLOSEC) [address] capsule, Take 40 mg by mouth before breakfast. Do not crush or chew., Disp: , Rfl: cholecalciferol, vitamin D3, 50 mcg (2,000 unit) capsule, Take 2,000 Units by mouth in the morning., Disp: , Rfl: Physical Exam Constitutional: Appearance: Normal appearance. He is obese. HENT: Head: Normocephalic and atraumatic. Right Ear: External ear normal. Left Ear: External ear normal. Eyes: Extraocular Movements: Extraocular movements intact. Pupils: Pupils are equal, round, and reactive to light. Neck: Vascular: No carotid bruit. Cardiovascular: Rate and Rhythm: Normal rate and regular rhythm. Pulses: Normal pulses. Heart sounds: Normal heart sounds. Comments: Right groin access site soft, mild tenderness, resolving ecchymosis, no hematoma, no bruit. Left groin access soft, nontender, no hematoma/ecchymosis/bruit. Pulmonary: Effort: Pulmonary effort is normal. Breath sounds: Normal breath sounds. Abdominal: General: Bowel sounds are normal. Palpations: Abdomen is soft. Musculoskeletal: General: Normal range of motion. Cervical back: Neck supple. R (more content not included)... [facility] 08-25-2024 Note Patient is here toda y in office for a follow S/P ablation an to discuss LAAO. Patient states he is feeling fine, he has had no issues through the all of this. Patient denies cardiac complaints. Review of Systems Constitutional: Negative. [facility] 08-22-2024 Note Cardiology Inpatient Progress Note Subjective Reason for consult: aflutter. HPI: Rebeca Nicole is a 74 y.o. 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 He presented for evaluation of palpitations and suspected ventricular arrhythmia. Over the past few months, he has experienced intermittent episodes of palpitations lasting several minutes without associated syncope or presyncope. Recently, the frequency of these episodes increased, prompting evaluation by his PCP. A 7-day home event monitor was ordered, and he was informed that it revealed ventricular arrhythmias originating from the lower chambers. He was referred to this facility for further evaluation. While hospitalized, he experienced additional episodes of palpitations, and telemetry revealed atrial flutter with ventricular rates up to 150 bpm. He subsequently underwent successful CTI ablation for atrial flutter on 08/21. 08/22/2024: Patient was seen and evaluated at the bedside today. He remains in stable condition, saturating 95-96% on room air. He reports diminished sensation in the lower extremities, which is consistent with his baseline. 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 Dorsalis pedis pulses are strong bilaterally. Groin access sites are intact without evidence of oozing, hematoma, bruit, or pseudoaneurysm. He remains in sinus rhythm. Sutures were removed today per fellow. Discharge planning is underway, with outpatient follow-up scheduled for October 13. PAST MEDICAL HISTORY: History reviewed. No pertinent past medical history. PAST SURGICAL HISTORY: History reviewed. No pertinent surgical history. FAMILY HISTORY: family history is not on file. SOCIAL HISTORY: Social History Tobacco Use Smoking status: Former Types: Cigarettes Smokeless tobacco: Never REVIEW OF SYSTEMS: General: Denies fever, chills, fatigue, weight loss, or malaise. HENT: Head: Denies headache or dizziness. Eyes: Denies vision changes. Nose: Denies nasal congestion, discharge, or epistaxis. Throat: Denies pain or difficulty swallowing. Pulmonary: Denies shortness of breath, cough, wheezing, or hemoptysis. Cardiovascular: Denies chest pain, palpitations, dizziness, or syncope. Peripheral Vascular: Denies leg swelling, cold extremities or claudication. Abdomen: Denies abdominal pain, nausea, vomiting, diarrhea, constipation, or bloating. No changes in appetite. Neurological: Denies headaches. Skin: Denies rashes, lesions, or itching. ALLERGIES: Allergies Allergen Reactions Doxycycline Hives Sulfa (Sulfonamide Antibiotics) Rash Objective 12-24 hour telemetry reviewed: SR, 64-93. Average 65 BPM. CURRENT MEDS: apixaban, 5 mg, oral, BID melatonin, 3 mg, oral, Nightly metoprolol succinate XL, 25 mg, oral, Daily PRN medications: acetaminophen, sennosides-docusate sodium, Insert peripheral IV AND Saline lock IV AND sodium chloride Patient Vitals for the past 24 hrs: BP Temp Temp src Pulse Resp SpO2 Height Weight 08/22/24 0927 137/86 36.3 ???C (97.3 ???F) -- 76 15 93 % -- -- 08/22/24 0845 -- -- -- 82 -- -- -- -- 08/22/24 0438 -- -- -- -- -- -- 1.91 m (6' 3.2 ) 134 kg (296 lb) 08/22/24 0400 153/80 36 ???C (96.8 ???F) Temporal 77 15 97 % -- -- 08/22/24 0100 109/68 35.5 ???C (95.9 ???F) Temporal 61 15 95 % -- -- 08/21/24 2300 127/59 -- -- 68 11 -- -- -- 08/21/24 2200 139/76 -- -- 79 14 -- -- -- 08/21/24 2100 138/80 -- -- 79 17 -- -- -- 08/21/242000 147/89 35.8 ???C (96.4 ???F) Temporal 87 16 96 % -- -- 08/21/24 1900 (!) 155/130 -- -- 86 20 -- -- -- 08/21/24 1800 139/85 -- -- 72 (!) 8 -- -- -- 08/21/24 1730 150/89 -- -- 64 13 98 % -- -- 08/21/24 1701 (!) 154/91 35.5 ???C (95.9 ???F) Temporal 71 17 95 % -- -- 08/21/24 1645 (!) 129/94 35.6 ???C (96.1 ???F) Temporal 63 14 -- -- -- 08/21/24 1634 (!) 149/97 -- -- 62 11 96 % -- -- 08/21/24 1631 146/86 35.8 ???C (96.4 ???F) Temporal 69 12 -- -- -- 08/21/24 1619 (!) 163/98 35.8 ???C (96.4 ???F) Temporal 68 11 -- -- -- 08/21/24 1607 (!) 154/102 -- -- 63 18 96 % -- -- 08/21/24 1537 -- -- -- -- -- 96 % -- -- 08/21/24 1418 -- -- -- -- -- 98 % -- -- 08/21/24 1417 161/88 -- -- 53 18 98 % -- -- BP 137/86 Pulse 76 Temp 36.3 ???C (97.3 ???F) Resp 15 Ht 1.91 m (6' 3.2 ) Wt 134 kg (296 lb) SpO2 93% BMI 36.80 kg/m??? Wt Readings from Last 3 Encounters: 08/22/24 134 kg (296 lb) PHYSICAL EXAM: General: Alert and oriented, Appears comfortable in no acute distress. HENT: Head: Normocephalic, atraumatic. Eyes: Conjunctiva clear, sclera anicteric. No periorbital edema. Nose: No nasal congestion or discharge. Throat: Mucous membranes moist and pink. Neck: Supple, no lymphadenopathy. No bruits. No jugular venous distension (JV (more content not included)... [facility] 08-22-2024 Note Hospital Medicine Discharge Summary Final Discharge Diagnosis: Supraventricular tachycardia; ddx: AVNRT vs aflutter PVCs HTN Obesity Admission Diagnosis: V-tach (CMS/HCC) [I47.20] Hospital course: Cardiology and EP saw the patient Underwent afib ablation on . Echo was repeated on morning, cardiology was ok with dc, he was sent home with metorprolol and apixaban Follow up in ep clinic to consider for watchman as he has neuropathy and tendency to fall. This was discussed with EP fellow. ECHO on Left Ventricle: Global left ventricular systolic function is normal. The EF is 55 % visually. Right Ventricle: The right ventricle is mildly enlarged. Right ventricular systolic function appears normal. Pericardium: No pericardial effusion. Blaine Larry DO, David is advised to follow up with you within 1-2 weeks. Items to follow up in ambulatory setting: afib Follow-up with: pcp, ep/cardiology Scheduled appointments: No future appointments. Your medication list START taking these medications Instructions Last Dose Given Next Dose Due apixaban 5 mg tablet Commonly known as: Eliquis Take 1 tablet (5 mg) by mouth two times daily. metoprolol succinate XL 25 mg 24 hr tablet Commonly known as: Toprol-XL Start taking on: August 23, 2024 Take 1 tablet (25 mg) by mouth in the morning. Do not crush or chew. CONTINUE taking these medications Instructions Last Dose Given Next Dose Due azithromycin 250 mg tablet Commonly known as: Zithromax omeprazole [address] capsule Commonly known as: PriLOSEC Where to Get Your Medications These medications were sent to [facility] - [place], [place] - [address] [place] [address] [facility] [place] [address], [facility] [address] apixaban 5 mg tablet metoprolol succinate XL 25 mg 24 hr tablet Rebeca is allergic to doxycycline and sulfa (sulfonamide antibiotics). Disposition: Home or Self Care () Discharge Condition: Stable Code Status: Full Code Diagnostic Results Hematology: Results from last 7 days Lab Units 08/22/24 0709 08/20/24 0425 WBC AUTO 10*3/uL 9.06 8.89 HEMOGLOBIN g/dL 13.3 13.0 HEMATOCRIT % 41.2 40.3 MCV fL 92.4 92.0 PLATELETS AUTO 10*3/uL 241 232 Chemistry: Results from last 7 days Lab Units 08/22/24 0709 08/20/24 0425 SODIUM mmol/L 140 139 POTASSIUM mmol/L 4.3 3.7 CHLORIDE mmol/L 107 105 CO2 mmol/L 29 28 BUN mg/dL 16 15 CREATININE mg/dL 1.07 0.90 GLUCOSE mg/dL 97 88 MAGNESIUM mg/dL 2.2 -- CALCIUM mg/dL 8.5* 8.6 Results from last 7 days Lab Units 08/22/24 0709 08/20/24 0425 AST U/L 15 15 ALT U/L 12 15 ALK PHOS U/L 57 55 BILIRUBIN TOTAL mg/dL 0.5 0.8 Test Results Pending At Discharge: Diet at the time of discharge: regular diet Nutrition Screen Activity: Patient currently has no discharge activity orders Objective Blood pressure 137/86, pulse 76, temperature 36.3 ???C (97.3 ???F), resp. rate 15, height 1.91 m (6' 3.2 ), weight 134 kg (296 lb), SpO2 93%. Cardiology: Normal rate, regular rhythm. Lungs: Clear to auscultation, no wheezes, rales or rhonchi, symmetric air entry. Abdomen: Soft, non tender, non distended. Extremities: No pitting edema. Neurology: No focal neuro deficit noted. Total time for discharge - review of data, exam, discussion with providers and care-team, med-rec and orders, arranging follow up, counseling of patient and/or family and documentation was 35 minutes. Signed Chevy Lugo MD [facility] Medicine 08/22/2024 10:32 AM CC: DO Laron [facility] 08-21-2024 Note Problem: Safety - Ad ult Goal: Free from fall injury Outcome: Progressing Flowsheets (Taken 08/21/20242035) Free from fall injury: Assess patient frequently for physical needs Modify environment to reduce risk of injury Problem: Chronic Conditions and Co-morbidities Goal: Patient's chronic conditions and co-morbidity symptoms are monitored and maintained or improved Outcome: Progressing Flowsheets (Taken 08/21/20242035) Care Plan - Patient's Chronic Conditions and Co-Morbidity Symptoms are Monitored and Maintained or Improved: Collaborate with multidisciplinary team to address chronic and comorbid conditions and prevent exacerbation or deterioration Update acute care plan with appropriate goals if chronic or comorbid symptoms are exacerbated and prevent overall improvement and discharge Monitor and assess patient's chronic conditions and comorbid symptoms for stability, deterioration, or improvement Problem: Discharge Planning Goal: Discharge to home or other facility with appropriate resources Flowsheets (Taken 08/21/20242035) Discharge to home or other facility with appropriate resources: Identify barriers to discharge with patient and caregiver Arrange for interpreters to assist at discharge as needed [facility] 08-21-2024 Note - ANRT sv fib/flutte r - Etiology unknown - Getting EP study today [facility] 08-21-2024 Note -Blood pressure stab le - Patient denies having any prior history of high blood pressure - Will monitor very closely and if numbers continue to be high we will treat [facility] 08-21-2024 Note EP studay today [facility] 08-21-2024 Note Use pantoprazole DVT prophylaxis using VTE protocols per [place] [facility] placed on Protonix Close Monitoring of pt is ordered. N.p.o. after midnight Consult cardiology. I discussed the plan of care with the patient and nursing staff in the room and everyone appears to be in agreement [facility] 08-21-2024 Note -Weight loss is extr verna important for this patient - Diet and exercise modalities to be used [facility] 08-21-2024 Note Hospital Medicine Daily Progress Note - 08/21/2024 1:23 PM; Room: [address] [place] [address] Admission: 08/20/2024 1:53 AM; Length of stay: 1 days THE HOSPITALIST TEAM PREFERS TO USE [employer] [facility] FOR NON-URGENT COMMUNICATION 7AM-7PM. IF I DO NOT RESPOND WITHIN 20 MINUTES OR URGENT MATTERS, PLEASE CALL THROUGH THE MARKET RESEARCH ANALYST. FROM 7PM-7AM, PLEASE PAGE [phone](COVR). Code Status: Full Code Barriers to Discharge: ep study Expected Discharge Date: 1-2 days Discharge Destination: home Overview Patient is seen for evaluation and management of tachycardia. Subjective Seen at bedside, no new events. No chest pain n/v/d/c. He says that he has bad peripheral neuropathy and he is high risk for falls so was hoping that he doesn't have to be on AC. Physical Exam GENERAL: The patient is well developed. No distress. VITAL SIGNS: Reviewed in the EMR. HEENT: Nonicteric sclerae, EOMI. HEART: Regular rate and rhythm without murmurs. LUNGS: Clear to auscultation bilaterally. No wheezing and crackles. ABDOMEN: Soft, positive bowel sounds, nontender SKIN: chronic skin discoloration at the legs NEUROLOGIC: Cranial nerves II-XII intact mid leg down severe neuropathy MSK: Muscle wasting absent. no tenderness or swelling. Visit Vitals BP 121/76 (BP Location: Right arm, Patient Position: Sitting) Pulse 54 Temp 36.4 ???C (97.5 ???F) (Temporal) Resp 18 Intake/Output Summary (Last 24 hours) at 08/21/2024 1323 Last data filed at 08/21/2024 0800 Gross per 24 hour Intake 605 ml Output 1025 ml Net -420 ml Estimated body mass index is 38.2 kg/m??? as calculated from the following: Height as of this encounter: 1.91 m (6' 3.2 ). Weight as of this encounter: 139 kg (307 lb 3.2 oz). Assessment and Plan Assessment & Plan V-tach ([facility]) - ANRT sv fib/flutter - Etiology unknown - Getting EP study today HTN (hypertension) -Blood pressure stable - Patient denies having any prior history of high blood pressure - Will monitor very closely and if numbers continue to be high we will treat Morbid obesity ([facility]) -Weight loss is extremely important for this patient - Diet and exercise modalities to be used GERD (gastroesophageal reflux disease) Use pantoprazole DVT prophylaxis using VTE protocols per [place] [facility] placed on Protonix Close Monitoring of pt is ordered. N.p.o. after midnight Consult cardiology. I discussed the plan of care with the patient and nursing staff in the room and everyone appears to be in agreement Atrial flutter ([facility]) EP studay today Neuropathy : From [place] infection. Has difficult walking, is unsteady, very high risk for falls Malnutrition Attestation: I attest to the following: I have personally seen this patient. The patient has been assessed for malnutrition as documentation above, and based on the criteria set by the Academy of Nutrition and Dietetics and the [place] [employer] of Enteral and Parenteral Nutrition, meets the diagnosis for malnutrition. A care plan has been established for this patient. VTE Prophylaxis: Heparin subcutaneous Scheduled Meds [Held by provider] apixaban, 5 mg, oral, BID ceFAZolin, 3 g, intravenous, Once melatonin, 3 mg, oral, Nightly [Held by provider] metoprolol succinate XL, 25 mg, oral, Daily Pertinent Investigations Hematology: Results from last 7 days Lab Units 08/20/24 0425 WBC AUTO 10*3/uL 8.89 HEMOGLOBIN g/dL 13.0 HEMATOCRIT % 40.3 MCV fL 92.0 PLATELETS AUTO 10*3/uL 232 Chemistry: Results from last 7 days Lab Units 08/20/24 0425 SODIUM mmol/L 139 POTASSIUM mmol/L 3.7 CHLORIDE mmol/L 105 CO2 mmol/L 28 BUN mg/dL 15 CREATININE mg/dL 0.90 GLUCOSE mg/dL 88 CALCIUM mg/dL 8.6 Results from last 7 days Lab Units 08/20/24 0425 AST U/L 15 ALT U/L 15 ALK PHOS U/L 55 BILIRUBIN TOTAL mg/dL 0.8 Historical Values: (Includes values prior to this admission) No results found for: PREALBUMIN , TSH , T3FREE , FREET4 , CORTISOL , FEV1 , LQU6CHP , DLCO , RVSP , HDL , LDL No results found for: OYQIRTGF42 , IRON , TIBC , C3 , C4 , RONI , CANCA , ASO , PSA , CEA , CA125 , CA199 , AFP , CA153 Imaging Complete Echo (TTE) w/wo Imaging Agent, Strain, 3D, Bubble Study 1 1 [facility] Heart Station [address] [place] [address] [phone] (fax) Echocardiogram-[facility] Name: REBECA NICOLE Study Date: 08/20/2024 02:24 PM B/P: 125 mmHg/96 mmHg HR: 57 bpm Date of : 1950 Location: [facility] Height: 78 in. Age: 74 year(s) Patient Room: 3167 Weight: 310 lb. Gender: Male Patient Status: InPt BSA: 2.72 m2 Indication: Paroxysmal atrial tachycardia Examination: Echocardiogram (Complete), Lumason Contrast Image Quality: Fair Patient Consent: Procedure explained to patient Exam Details Contrast: I.V. dose of Lumason Conclusions Left Ventricle: The left ventricle is normal size. Global left ventricular (more content not included)... [facility] 08-21-2024 Note 08/21/24 3809 Admission Assessment Questions Verify insurance with patient Yes Do you understand medical disease or what brought you into the hospital? Yes Who is your current PCP? Gutierrez Larry Can I schedule a follow up appointment for you at the time of discharge? Yes Do you understand why you are taking your current medications? Yes Are you taking your medications as prescribed? Yes Did patient provide teach back? No Pharmacy Bedside Delivery Status Interested Does the patient have a telephonic nurse case manager assigned to them through their insurance? No Living Arrangement (Current/Prior to Hospitalization) Private residence (with ) Does the patient have history of HHC or SNF? Yes (through [employer] insurance gets yearly nurse visit.) Assistive Device Cane;Walker Patient's goal for discharge To get back home Was patient reminded that goal for discharge is 11am? No Does the patient have transportation at discharge? Yes Type of Residence Private residence Is PT/OT appropriate? Yes Is PT/OT ordered? Yes Is SW consult appropriate? Yes Is SW consult ordered? No Do you understand the benefits of MyChart? Yes Were you able to send link and activate MyChart? Yes [facility] 08-21-2024 Note Attestation signed by Giovani Monique MD at 08/21/2024 5:38 PM Mr. Nicole was seen and examined by me this morning. We discussed the plan of care. I then personally spoke with the EP team Drs. Dial and Alban about performing EPS. Subsequent procedure demonstrated atrial flutter which was ablated. Plan is for echo in morning then discharge to home. Cardiology Progress Note Subjective Subjective: Patient was seen today at bedside. He is hemodynamically stable. He denied chest pain, SOB, nausea, vomiting, headache, dizziness. Objective Current Facility-Administered Medications: acetaminophen (Tylenol) tablet 650 mg, 650 mg, oral, q6h PRN, Srinivas Vuong MD [Held by provider] apixaban (Eliquis) tablet 5 mg, 5 mg, oral, BID, Dwight Cruz MD, 5 mg at 08/20/242027 melatonin tablet 3 mg, 3 mg, oral, Nightly, Malika Ramos MD, 3 mg at 08/20/242026 [Held by provider] metoprolol succinate XL (Toprol-XL) 24 hr tablet 25 mg, 25 mg, oral, Daily, Dwight rCuz MD, 25 mg at 08/20/241746 sennosides-docusate sodium (Melissa-Colace) 8.6-50 mg per tablet 1 tablet, 1 tablet, oral, BID PRN, Srinivas Vuong MD Insert peripheral IV, , , Once AND Saline lock IV, , , Once AND sodium chloride flush 10 mL, 10 mL, intravenous, q8h PRN, Srinivas Vuong MD Objective: Patient Vitals for the past 24 hrs: BP Temp Temp src Pulse Resp SpO2 Weight 08/21/24 0800 121/76 36.4 ???C (97.5 ???F) Temporal 54 18 94 % -- 08/21/24 0415 -- -- -- -- -- -- (!) 139 kg (307 lb 3.2 oz) 08/20/242023 126/84 35.5 ???C (95.9 ???F) Temporal 60 -- 92 % -- 08/20/24 1534 149/89 -- -- 71 15 96 % -- 08/20/24 1227 (!) 125/96 -- -- 64 18 95 % -- Physical Examination: Physical Exam Constitutional: Appearance: Normal appearance. HENT: Head: Normocephalic and atraumatic. Eyes: Extraocular Movements: Extraocular movements intact. Pupils: Pupils are equal, round, and reactive to light. Cardiovascular: Rate and Rhythm: Normal rate and regular rhythm. Pulmonary: Effort: Pulmonary effort is normal. Breath sounds: Normal breath sounds. Abdominal: General: Abdomen is flat. Palpations: Abdomen is soft. Musculoskeletal: General: Normal range of motion. Cervical back: Normal range of motion. Right lower leg: No edema. Left lower leg: No edema. Skin: General: Skin is warm. Capillary Refill: Capillary refill takes less than 2 seconds. Neurological: General: No focal deficit present. Mental Status: He is alert. Psychiatric: Mood and Affect: Mood normal. Relevant Lab Results Encounter Date: 08/20/24 ECG 12 lead Result Value Ventricular Rate 55 Atrial Rate 55 GA Interval 180 QRS DURATION 104 QT Interval 456 QTC CALCULATION(BAZETT) 436 P Epsom 41 R-Epsom 1 T Wave Epsom 34 Impression Sinus bradycardia with occasional Premature ventricular complexes Otherwise normal ECG No previous ECGs available Confirmed by Emerson GROSS, STEPHANIE Rausch ([id number]) on 08/20/2024 9:30:52 AM No results found for: CKTOTAL , CKMB , CKMBINDEX , TROPONINI Complete Echo (TTE) w/wo Imaging Agent, Strain, 3D, Bubble Study Result Date: 08/20/2024 1 1 [facility] Heart Station [address] [facility] [place] [address] [phone] (fax) Echocardiogram-[facility] Name: REBECA NICOLE Study Date: 08/20/2024 02:24 PM B/P: 125 mmHg/96 mmHg HR: 57 bpm Date of : 1950 Location: [facility] Height: 78 in. Age: 74 year(s) Patient Room: [facility] Weight: 310 lb. Gender: Male Patient Status: [...] 66.5 g/m?? (50g/m?? - 102.4g/m??) RWT, MM 0. (more content not included)... [facility] 08-21-2024 Note Problem: Safety - Ad ult Goal: Free from fall injury Outcome: Progressing Flowsheets (Taken 08/21/2024 0835) Free from fall injury: Assess patient frequently for physical needs Identify cognitive and physical deficits and behaviors that affect risk of falls [place] fall precautions as indicated by assessment Educate patient/family on patient safety, including physical limitations Problem: Pain - Adult Goal: Verbalizes/displays adequate comfort level or baseline comfort level Outcome: Progressing Flowsheets (Taken 08/21/2024 0800) Verbalizes/displays adequate comfort level or baseline comfort level: Encourage patient to monitor pain and request assistance Assess pain using appropriate pain scale Administer analgesics based on type and severity of pain and evaluate response Problem: Discharge Planning Goal: Discharge to home or other facility with appropriate resources Outcome: Progressing Flowsheets (Taken 08/21/2024 0920) Discharge to home or other facility with appropriate resources: Identify barriers to discharge with patient and caregiver Arrange for needed discharge resources and transportation as appropriate Problem: Chronic Conditions and Co-morbidities Goal: Patient's chronic conditions and co-morbidity symptoms are monitored and maintained or improved Outcome: Progressing Flowsheets (Taken 08/21/2024 0920) Care Plan - Patient's Chronic Conditions and Co-Morbidity Symptoms are Monitored and Maintained or Improved: Monitor and assess patient's chronic conditions and comorbid symptoms for stability, deterioration, or improvement Collaborate with multidisciplinary team to address chronic and comorbid conditions and prevent exacerbation or deterioration The patient is Moderately Stable - Low risk of patient condition declining or worsening The patient's goals for the shift include comfort The clinical goals for the shift include VSS Over the shift, the patient did not make progress toward the following goals. [facility] 08-20-2024 Note Problem: Safety - Ad ult Goal: Free from fall injury Outcome: Progressing Flowsheets (Taken 08/20/2024 2240) Free from fall injury: Assess patient frequently for physical needs Modify environment to reduce risk of injury Problem: Discharge Planning Goal: Discharge to home or other facility with appropriate resources Outcome: Progressing Flowsheets (Taken 08/20/20242239) Discharge to home or other facility with appropriate resources: Identify barriers to discharge with patient and caregiver Identify discharge learning needs (meds, wound care, etc) Problem: Chronic Conditions and Co-morbidities Goal: Patient's chronic conditions and co-morbidity symptoms are monitored and maintained or improved Outcome: Progressing Flowsheets (Taken 08/20/20240) Care Plan - Patient's Chronic Conditions and Co-Morbidity Symptoms are Monitored and Maintained or Improved: Monitor and assess patient's chronic conditions and comorbid symptoms for stability, deterioration, or improvement Collaborate with multidisciplinary team to address chronic and comorbid conditions and prevent exacerbation or deterioration Update acute care plan with appropriate goals if chronic or comorbid symptoms are exacerbated and prevent overall improvement and discharge [facility] 08-20-2024 Note Physical Therapy Physical Therapy Evaluation Patient Name: Rebeca Nicole : 1950 Today's Date: 08/20/2024 Start Time: 1155 Stop Time: 1220 Time Calculation (min): 25 min PT Evaluation Time Entry PT Evaluation (Low) Time Entry: 12 PT Therapeutic Procedures Time Entry Self Care/Home Management (ADLs) Time Entry: 10 General Subjective: RN approved PT session and OOB activity this date. In bed upon arrival, agreeable to session. Upon completion, patient left back in bed with call light within reach, RN aware Patient Summary: Patient is a 74 y/o male presented to [facility] ED per request of PCP for V-tach findings on his event monitor, transferred to [facility] overnight for further work-up. PT Diagnosis: Impaired activity tolerance/balance Additional time spent at end of evaluation/session educating patient on importance of continued mobility throughout the remainder of his admission. Resources including NA's, Mobility Aides/Techs. Patient Active Problem List Diagnosis V-tach (CMS/HCC) HTN (hypertension) Morbid obesity (CMS/HCC) GERD (gastroesophageal reflux disease) History reviewed. No pertinent past medical history. History reviewed. No pertinent surgical history. Precautions Precautions Medical Precautions: telemetry Pain Pain Assessment Pain Assessment: No/denies pain Pain Score: 0 - No pain Cognition Cognition Overall Cognitive Status: Within Functional Limits Arousal/Alertness: Appropriate responses to stimuli Orientation Level: Oriented X4 Following Commands: Follows all commands and directions without difficulty General Assessment General Assessment Hearing: Intact Hand Dominance: Right Home Living Home Living Type of Home: House (In law suite - Lives with Family) Lives With: Spouse Home Adaptive Equipment: Walker rolling, Quad cane Home Layout: One level Home Access: Level entry Bathroom Shower/Tub: Tub/shower unit Bathroom Toilet: Handicapped height Bathroom Equipment: Grab bars in shower, Shower chair with back, Hand-held shower, Raised toilet seat without rails Prior Level of Function Prior Function Level of [place]: Independent with ADLs and functional transfers, Independent with homemaking with ambulation Prior Functional Mobility: Independent with cane ADL Assistance: Independent Homemaking Assistance: Independent Vision Basic Assessment Vision - Basic Assessment Current Vision: No visual deficits Vision - Complex General Assessments Activity Tolerance Endurance: Stage III Sensation Light Touch: Severe deficits in the RLE, Severe deficits in the LLE (Baseline) Coordination Movements are Fluid and Coordinated: Yes Postural Control Postural Control: Within Functional Limits Static Sitting Balance Static Sitting-Balance Support: Feet supported Static Sitting-Level of Assistance: Independent Dynamic Sitting Balance Dynamic Sitting-Balance Support: Feet supported, Right upper extremity supported, Left upper extremity supported Dynamic Sitting-Balance: Forward lean, Lateral lean Dynamic Sitting Balance-Level of Assistance: Independent Static Standing Balance Static Standing-Balance Support: With device (Quad cane) Static Standing-Level of Assistance: Distant supervision Dynamic Standing Balance Dynamic Standing-Balance Support: With device (Quad cane) Dynamic Standing Balance-Level of Assistance: Close supervision Functional Assessments Bed Mobility Bed Mobility: Yes Bed Mobility 1 Bed Mobility From 1: Short sit Bed Mobility Type 1: To Bed Mobility to 1: Supine Level of Assistance 1: Independent Bed Mobility Comments 1: HOB elevateed ~30 degrees Transfers Transfer: Yes Transfer 1 Technique 1: Sit to stand, Stand to sit (From bedside chair) Transfer Device 1: none (Quad cane nearby - grabbed once transfer was completed) Transfer Level of Assistance 1: Independent Ambulation Ambulation: Yes Ambulation 1 Surface 1: Level tile Device 1: Large base quad cane Assistance 1: Close supervision Quality of Gait 1: Decreased BLE step length, increased BLE hip flexion to compensate for weak ankle DF. Steady throughout without instability or LOB Comments/Distance (ft) 1: 115 ft Extremity Assessments RUE Assessment RUE Assessment: Within Functional Limits LUE Assessment LUE Assessment: Within Functional Limits RLE Assessment RLE Assessment: Exceptions to WFL (WFL except BLE ankle DF 2/5) LLE Assessment LLE Assessment: Exceptions to WFL (WFL except BLE ankle DF 2/5) Therapeutic Exercise Outcome Assessments 6 Clicks (Mobility) Help from another person turning from your back to your side while in a flat bed without using bedrails: None Help from another person moving from lying on your back to sitting on the side of a flat bed without using bedrails: None Help from another person moving to and from a bed to a chair (including a wheelchair): N (more content not included)... [facility] 08-20-2024 Note Occupational Therapy Occupational Therapy Evaluation Patient Name: Rebeca Nicole : 1950 Today's Date: 08/20/2024 Time In: 847 Time Out: 905 Rebeca Nicole is an 74 y.o. male who came from [facility] with V-tach on his event monitor and he was sent to the ER and then trasferred to [facility]. General Subjective: friendly and cooperative Patient Active Problem List Diagnosis V-tach (CMS/HCC) HTN (hypertension) Morbid obesity (CMS/HCC) GERD (gastroesophageal reflux disease) History reviewed. No pertinent past medical history. History reviewed. No pertinent surgical history. Precautions Precautions Medical Precautions: fall risk Pain Pain Assessment Pain Assessment: No/denies pain Cognition Cognition Overall Cognitive Status: Within Functional Limits General Assessment General Assessment Hearing: (wfl) Hand Dominance: Right Home Living Home Living Type of Home: House (in law suite) Lives With: Spouse Home Adaptive Equipment: Walker rolling, Quad cane (sc, gb, hhs, rts, sock aid, network architect) Home Layout: One level Home Access: Level entry Bathroom Shower/Tub: Tub/shower unit Prior Level of Function Prior Function Level of [place]: Independent with ADLs and functional transfers, Independent with homemaking with ambulation Prior Functional Mobility: Independent with cane (drives) Prior IADLs IADL History Homemaking Responsibilities: Yes Meal Prep Responsibility: Secondary Dynamic Sitting Balance Dynamic Sitting Balance Dynamic Sitting Balance-Level of Assistance: Distant supervision Static Standing Balance Static Standing Balance Static Standing-Level of Assistance: Close supervision (Q cane) ADL ADL LE Dressing Assistance: Minimal Transfers Transfers Transfer: (indep supine to sit EOB, SBA with Q cane: sit to stand , 40 feet X2 and sit into chair) Objective General Assessments Activity Tolerance Endurance: Stage II Vision - Basic Assessment Current Vision: No visual deficits Sensation Light Touch: Severe deficits in the RLE, Severe deficits in the LLE Coordination Movements are Fluid and Coordinated: Yes Extremity Assessments RUE Assessment RUE Assessment: Within Functional Limits LUE Assessment LUE Assessment: Within Functional Limits Outcome Assessments AM-PAC 6 Clicks Putting on and taking off regular lower body clothing?: A Little (Min Assist/Contact Guard/Supervision) Bathing(Including washing,rinsing,drying)?: A Little (Min Assist/Contact Guard/Supervision) Toileting, which includes using the toilet,bedpan,or urinal?: A Little (Min Assist/Contact Guard/Supervision) Putting on and taking off regular upper body clothing?: None (Independent) Taking care of personal grooming such as brushing teeth?: None (Independent) Eating meals?: None (Independent) Total Score OT [facility]: 21 Assessment/Plan OT Assessment OT Impairments: Decreased ADL status, Decreased endurance, Decreased functional mobility OT Assessment/METAL ENGRAVER Summary: (neeeds skilled OT due to weakness and fatigue) Prognosis: Good Evaluation/Treatment Tolerance: Patient limited by fatigue Medical Staff Made Aware: Yes OT Education/Comments: (LB adls and adl transfer safety / techique with good return demo) Plan Level of assist: 1 assist Treatment Interventions: ADL retraining, Functional transfer training, Endurance training, Patient/family training, Neuromuscular reeducation, Compensatory technique education OT Plan: Skilled OT OT Frequency: 5 times per week OT Discharge Recommendations: Patient is able to return to prior living environment OT - Discharge Recommendations Placed: Yes OT Goals Multi-Disciplinary Problems (from Occupational Therapy) Active Problems Problem: Balance Start Date: 08/20/24 Goal Start Date Expected End Date End Date LTG - Patient will maintain stand balance to allow for safe mobility 08/20/24 09/03/24 -- Problem: Bathing Start Date: 08/20/24 Goal Start Date Expected End Date End Date LTG - Patient will utilize adaptive techniques to bathe body with no assistance 08/20/24 09/03/24 -- Problem: Dressings Lower Extremities Start Date: 08/20/24 Goal Start Date Expected End Date End Date LTG - Patient will dress lower body with no assistance 08/20/24 09/03/24 -- Problem: Toileting Start Date: 08/20/24 Goal Start Date Expected End Date End Date LTG - Patient will utilize adaptive techniques/equipment to complete daily toileting tasks with no assistance 08/20/24 09/03/24 -- Problem: OT Misc Start Date: 08/20/24 Goal Start Date Expected End Date End Date Mod I adl transfers 50 feet and standing 10 minutes 08/20/24 09/03/24 -- [facility] 08-20-2024 Note Use pantoprazole DVT prophylaxis using VTE protocols per [facility] placed on Protonix Close Monitoring of pt is ordered. N.p.o. after midnight Consult cardiology. I discussed the plan of care with the patient and nursing staff in the room and everyone appears to be in agreement [facility] 08-20-2024 Note -Weight loss is extr verna important for this patient - Diet and exercise modalities to be used [facility] 08-20-2024 Note -Blood pressure toda y is 157/57. - Patient denies having any prior history of high blood pressure - Will monitor very closely and if numbers continue to be high we will treat [facility] 08-20-2024 Note -Etiology unknown - Most excludes ACS as etiology - Will obtain twelve-lead EKG, troponins, and consult cardiology - Patient is currently started on subcu heparin and monitored very closely [facility] 08-20-2024 Note Hospital Medicine History and Physical 08/20/2024 2:26 AM THE HOSPITALIST TEAM PREFERS TO USE [employer] [facility] FOR NON-URGENT COMMUNICATION 7AM-7PM. IF I DO NOT RESPOND WITHIN 20 MINUTES OR URGENT MATTERS, PLEASE CALL THROUGH THE MARKET RESEARCH ANALYST. FROM 7PM-7AM, PLEASE PAGE [phone](COVR). Chief Complaint No chief complaint on file. History of Present Illness Rebeca Nicole is an 74 y.o. male who came from [facility] with V-tach on his event monitor and he was sent to the ER and then trasferred to [facility]. 74-year-old gentleman past medical history significant for morbid obesity, hypertension and GERD and of recent feeling extremely weak. He was transferred from [facility] where he was seen to [facility] after the ER physician spoke with a vegetable farm worker here at [place]. Patient was called by his PCP that his event monitor had shown evidence of ventricular tachycardia/a tachyarrhythmia. He stated that he had no symptoms and felt fine but he complained with the emergency room. While the blood pressure was 157/54, pulse rate was 56 respiratory rate was 14 and pulse oximeter was normal on room air. The emergency room physician who spoke with me said that patient had normal laboratory findings but because of the ventricular tachycardia he is being transferred to [place] for further investigation and treatment. Monitor the patient, he denied chest pain, denies shortness of breath, denied nausea or vomiting, denied fever or chills. Apart from being morbidly obese the recent physical findings were unremarkable. Patient is being admitted to the hospital for observation and cardiology has been consulted to investigate the causation of the tachyarrhythmia/supraventricular tachycardia. While here at [place] patient was sinus rhythm on the monitor rates in the low 60s. We will get EKG, laboratory examinations. Review of System and Physical Exam Heart Rate: [59] 59 Resp: [15] 15 BP: (160)/(98) 160/98 Physical Exam Constitutional: General: He is not in acute distress. Appearance: He is ill-appearing. He is not toxic-appearing or diaphoretic. HENT: Head: Normocephalic and atraumatic. Mouth/Throat: Mouth: Mucous membranes are moist. Pharynx: Oropharynx is clear. Eyes: Extraocular Movements: Extraocular movements intact. Pupils: Pupils are equal, round, and reactive to light. Cardiovascular: Rate and Rhythm: Normal rate and regular rhythm. Heart sounds: No murmur heard. No gallop. Pulmonary: Effort: Pulmonary effort is normal. Breath sounds: Normal breath sounds. No rales. Abdominal: Palpations: Abdomen is soft. There is no mass. Tenderness: There is no abdominal tenderness. There is no guarding or rebound. Hernia: No hernia is present. Musculoskeletal: General: Normal range of motion. Cervical back: Normal range of motion and neck supple. Right lower leg: No edema. Left lower leg: No edema. Skin: General: Skin is warm and dry. Neurological: General: No focal deficit present. Mental Status: He is alert and oriented to person, place, and time. Mental status is at baseline. Psychiatric: Mood and Affect: Mood normal. Behavior: Behavior normal. Thought Content: Thought content normal. Review of Systems Constitutional: Positive for fatigue. HENT: Negative. Eyes: Negative. Respiratory: Positive for shortness of breath. Cardiovascular: Positive for palpitations. Gastrointestinal: Negative. Endocrine: Negative. Genitourinary: Negative. Musculoskeletal: Negative. Skin: Negative. Allergic/Immunologic: Negative. Neurological: Negative. Hematological: Negative. Psychiatric/Behavioral: Negative. Assessment and Plan 74-year-old gentleman with past medical history significant for hypertension and GERD as well as obesity is being transferred for admission here for investigation of V. 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 Bradycardia, saw the patient here he was symptom-free and the rhythm strip on the monitor looked normal. Assessment & Plan V-tach (CMS/HCC) -Etiology unknown - Most excludes ACS as etiology - Will obtain twelve-lead EKG, troponins, and consult cardiology - Patient is currently started on subcu heparin and monitored very closely HTN (hypertension) -Blood pressure today is 157/57. - Patient denies having any prior history of high blood pressure - Will monitor very closely and if numbers continue to be high we will treat Morbid obesity (CMS/HCC) -Weight loss is extremely important for this patient - Diet and exercise modalities to be used GERD (gastroesophageal reflux disease) Use pantoprazole DVT prophylaxis using VTE protocols per [facility] placed on Protonix Close Monitoring of pt is ordered. N.p.o. after midnight Consult cardiology. I discussed the plan of care with the patient and nursing staff in the room and everyone appears to be in agreement VTE Prophylaxis: Heparin subcutaneous ----- Focus of this inpatient stay jay jay (more content not included)... [facility] 2024 History of Present illness Narrative Images from the original note were not included. Subjective Patient ID: See Nicole is a 74 y.o. male who presents for Callus care (See Nicole is a 73 y.o. male. Established pt presents today for callus debridement. SS: 14). HPI Established patient returns to clinic for palliative foot care. Review of Systems Constitutional: Negative for activity change and fatigue. Respiratory: Negative for chest tightness and shortness of breath. Cardiovascular: Negative for chest pain and leg swelling. Musculoskeletal: Positive for gait problem. Negative for arthralgias and joint swelling. Skin: Positive for wound. Negative for color change. Allergic/Immunologic: Negative for immunocompromised state. Neurological: Positive for weakness and numbness. Hematological: Does not bruise/bleed easily. Psychiatric/Behavioral: Negative for agitation and behavioral problems. Medications Current Outpatient Medications: ammonium lactate (Amlactin) 12 % cream, Apply topically Daily, Disp: 140 g, Rfl: 3 cholecalciferol (Vitamin D-3) 50 MCG (1999 UT) capsule, 2,000 Units., Disp: , Rfl: minocycline 100 MG capsule, Take 100 mg by mouth. (Patient not taking: Reported on 04/28/2024), Disp: , Rfl: Misc Natural Products (PROSTATE SUPPORT PO), Take by mouth, Disp: , Rfl: omeprazole (PriLOSEC) [address] capsule, TAKE 1 CAPSULE BY MOUTH 30 MINUTES BEFORE MORNING MEAL EVERY DAY, Disp: , Rfl: tiZANidine (Zanaflex) 4 MG tablet, Take 4 mg by mouth every 12 (twelve) hours PRN, Disp: , Rfl: Allergies Latex, Prednisone, Tetracycline, Doxycycline, and Sulfamethoxazole-trimethoprim Past Surgical History Past Surgical History: Procedure Laterality Date COLONOSCOPY 2009 Disease:diverticulosis EGD 2007 EYE SURGERY 2018 HIP ARTHROPLASTY Left JOINT REPLACEMENT 2002 OTHER SURGICAL HISTORY 2002 TOTAL HIP ARTHROPLASTY 2002 x2 TOTAL KNEE ARTHROPLASTY 2006 x2 VASECTOMY 1990 Family History Family History Problem Relation Name Age of Onset Heart disease Mother May Enoch Hypertension Mother May Enoch Colon cancer Mother May Enoch Arthritis Mother May Enoch Other (epilepsy) Father [place] Nicole Heart disease Father [place] Nicole Hypertension Father Raleigh Vodipreeti Cancer Father [place] Nicole Cancer Paternal Grandfather Rosendo Nicole Hypertension Sibling Heart disease Sibling Other (epilepsy) Son Objective Physical Exam Constitutional: General: He is not in acute distress. Comments: Presents to clinic ambulating with cane assistance. Drop foot on the right foot. HENT: Head: Atraumatic. Cardiovascular: Comments: Hemosiderin deposition bilateral lower extremities. DP, PT pulses 1/4. Musculoskeletal: Cervical back: No tenderness. Comments: Drop foot more notable on the left side. Ankle dorsiflexion 2/5 bilaterally. Skin: Capillary Refill: Capillary refill takes less than 2 seconds. Comments: Diffuse hyperkeratotic tissue noted plantar 5th metatarsal head, right foot. Skin lines pass through the lesion, no pinpoint, thrombosed capillaries. Tender with direct palpation. 6 toenails exhibit clinical mycosis with thickened appearance, yellow/brown discoloration, crumbly texture, subungual debris. Nail avulsion of the left hallux. Attempted nail avulsion of the 2nd toe with hyperkeratotic covering of the nailbed. Right hallux is tender with palpation. Neurological: General: No focal deficit present. Mental Status: He is alert. Psychiatric: Mood and Affect: Mood normal. Behavior: Behavior normal. Assessment/Plan ICD-10-CM 1. Corns and callosities L84 ammonium lactate (Amlactin) 12 % cream 2. Onychomycosis B35.1 3. Onychodystrophy L60.3 4. Right foot pain M79.671 5. Left foot pain M79.672 Patient examined and evaluated. Hyperkeratotic tissue of the right foot debrided by me with a sterile 15. Blade without incident. Patient noted relief of symptoms after debridement. Recommend applying ammonium lactate cream daily and using pumice stone debridement regularly to reduce hyperkeratotic buildup. Prescription for ammonium lactate sent to his pharmacy. Eight toenails were debrided in length and thickness today utilizing a nail Nipper and electric magazine grinder loader without incident. Patient wishes to follow up as needed. This note was created with the assistance of a speech recognition program. While intending to generate a timely document that accurately reflects the content of the visit, no guarantee can be provided that every grammatical or spelling mistake has been or will be identified or corrected. Thank you for your understanding. Morales Ramon DPM documented in this encounter [facility] 06-22-2024 Evaluation note Diagnosis Onset Date Resolution GERD (gastroesophageal reflux disease) acute June 22, 2024 8:53am ALEXANDRA (obstructive sleep apnea) acute July 28, 2024 10:32am Palpitations acute July 28, 2024 10:32am [facility] Work Phone: 1(795) 476-661903-17-2025 Evaluation note* Diagnosis Onset Date Resolution Status Admit Date [...] sleep apnea) acute August 28, 2024 9:16am [facility] Work Phone: 1(613) 789-101001-21-2025 History of Present illness Narrative* Morales Ramon DPM - 04/28/2024 10:30 AM EST Images from the original note were not included. Subjective Patient ID: See Nicole is a 73 y.o. male who presents for Foot Callouses (Established pt presents today for callus debridement. SS: 14). HPI Established patient returns to clinic with concern of a painful callus on the plantar aspect of theright foot. Patient also having issues with painful toenails. Review of Systems Constitutional: Negative for activity change and fatigue. Respiratory: Negative for chest tightness and shortness of breath. Cardiovascular: Negative for chest pain and leg swelling. Musculoskeletal: Positive for gait problem. Negative for arthralgias and joint swelling. Skin: Positive for wound. Negative for color change. Allergic/Immunologic: Negative for immunocompromised state. Neurological: Positive for weakness and numbness. Hematological: Does not bruise/bleed easily. Psychiatric/Behavioral: Negative for agitation and behavioral problems. Medications Current Outpatient Medications: Misc Natural Products (PROSTATE SUPPORT PO), Take by mouth, Disp: , Rfl: omeprazole (PriLOSEC) [address] capsule, TAKE 1 CAPSULE BY MOUTH 30 MINUTES BEFORE MORNING MEAL EVERY DAY, Disp: , Rfl: tiZANidine (Zanaflex) 4 MG tablet, Take 4 mg by mouth every 12 (twelve) hours PRN, Disp: , Rfl: cholecalciferol (Vitamin D-3) 50 MCG (1999) capsule, 2,000 Units., Disp: , Rfl: minocycline 100 MG capsule, Take 100 mg by mouth. (Patient not taking: Reported on 04/28/2024), Disp: , Rfl: Allergies Latex, Prednisone, Tetracycline, Doxycycline, and Sulfamethoxazole-trimethoprim Past Surgical History Past Surgical History: Procedure Laterality Date COLONOSCOPY 2009 Disease:diverticulosis EGD 2006 EYE SURGERY 2018 HIP ARTHROPLASTY Left JOINT REPLACEMENT 2002 OTHER SURGICAL HISTORY 2002 TOTAL HIP ARTHROPLASTY 2002 x2 TOTAL KNEE ARTHROPLASTY 2006 x2 VASECTOMY 1990 Family History Family History Problem Relation Name Age of Onset Heart disease Mother May Enoch Hypertension Mother May Enoch Colon cancer Mother May Enoch Arthritis Mother May Enoch Other (epilepsy) Father [place] Nicole Heart disease Father [place] Nicole Hypertension Father [place] Nicole Cancer Father [place] Nicole Cancer Paternal Grandfather Rosendo Nicole Hypertension Sibling Heart disease Sibling Other (epilepsy) Son Objective Physical Exam Constitutional: General: He is not in acute distress. Comments: Presents to clinic ambulating with cane assistance. Drop foot on the right foot. HENT: Head: Atraumatic. Cardiovascular: Comments: Hemosiderin deposition bilateral lower extremities. DP, PT pulses 1/4. Musculoskeletal: Cervical back: No tenderness. Comments: Drop foot more notable on the left side. Ankle dorsiflexion 2/5 bilaterally. Skin: Capillary Refill: Capillary refill takes less than 2 seconds. Comments: Diffuse hyperkeratotic tissue noted plantar 5th metatarsal head, right foot. Skin lines pass through the lesion, no pinpoint, thrombosed capillaries. Tender with direct palpation. 6 toenails exhibit clinical mycosis with thickened appearance, yellow/brown discoloration, crumbly texture, subungual debris. Nail avulsion of the left hallux. Attempted nail avulsion of the 2nd toe with hyperkeratotic covering of the nailbed. Right hallux is tender with palpation. Neurological: General: No focal deficit present. Mental Status: He is alert. Psychiatric: Mood and Affect: Mood normal. Behavior: Behavior normal. Assessment/Plan ICD-10-CM 1. Corns and callosities L84 2. Right foot pain M79.671 3. Onychomycosis B35.1 Patient examined and evaluated. Hyperkeratotic tissue of the right foot debrided by me with a sterile 15. Blade without incident. Patient noted relief of symptoms after debridement. Recommend applying ammonium lactate cream daily and using pumice stone debridement regularly to reduce hyperkeratoticbuildup. Eight toenails were debrided in length and thickness today utilizing a nail Nipper and electric magazine grinder loader without incident. Patient will follow up as needed. This note was created with the assistance of a speech recognition program. While intending to generate a timely document that accurately reflects the content of the visit, no guarantee can be provided that every grammatical or spelling mistake has been or will be identified or corrected. Thank you for your understanding. Morales Ramon DPM documented [facility] [id number] History of Present illness Narrative* Catherine Ayoub, FIRE PROTECTION EQUIPMENT TECHNICIAN-POURED PIPE MAKER - 04/10/2024 8:00 AM EST Images from the original note were not included. Wound Care Progress Note Patient: Rebeca Nicole Date of : 1950 Chief Compliant: Left leg ulceration, follow up SUBJECTIVE/HPI: Rebeca is a 73 y.o. male who presents to [facility] for evaluation of 1 ulcer(s) on the left lateral and posterior malleolus. Patient established with wound clinic on 11/26/2023. Current daily wound care includes: Triamcinolone ointment 0.1% thin layer application daily, cover leg with Vaseline, using latex free DEREK wrap for swelling control. Patient states he has been using a stationary pedaling device for exercise daily. Vascular surgical procedure, RFA ablation of left GSV scheduled for early March 13, 2024. Patientcanceled this appointment because the wound healed. Patient reports he dropped a flower pot on the right lower ankle region mid October,. Patient hasbeen following with podiatry for the wounds. Reports he has had Unna boots x2 without success. Patient's chart was reviewed for all available supporting documentation, laboratory results and radiographic examination including external notes. Measurable wound changes: wound resolved 3.0 cm decrease in LLE calf circumference Patient accompanied by: self, patient ambulates with a cane Nutritional screen shows patient does not take in three servings of protein per day. Patient does deny fever, chills, sweats, or other signs of infection. Prescribed antibiotics: none Today's reported Blood Sugar:N/A No results found for: HGBA1C Tobacco use: former smoker Contributing comorbid conditions: Lumbar spondylosis, bilateral foot drop, history of West Nile virus. Review of Venous Insufficiency Testing 12/27/2023 Interpretation Summary Right: Common femoral vein is compressible with spontaneous phasic spectral Doppler waveforms. Left: Limited visualization of veins in the calf due to edema. Remaining deep visualized venous segments are compressible with spontaneous phasic spectral Doppler waveforms. Superficial veins are compressible. Saphenopopliteal junction was not visualized, intersaphenous vein was noted. Venous reflux time >1000 ms is noted in the femoral and popliteal vein. Saphenofemoral junction reflux >500 ms with multilevel great saphenous vein reflux. Video Engineer vein with 4089 ms reflux time and 3.6 mm diameter noted in the proximal medial calf. General: This examination was performed in the upright position. Conclusions: RIGHT: No evidence of right common femoral vein deep vein thrombosis or significant reflux.LEFT: No evidence of deep or superficial vein thrombosis of the lower extremity. Femoropopliteal deep vein reflux. Video Engineer vein reflux. Saphenofemoral junction and great saphenous superficial vein reflux. 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, bilateral Foot drop, right Foot drop, left Psoas tendonitis of left side Benign prostatic hyperplasia with lower urinary tract symptoms GERD (gastroesophageal reflux disease) Lumbar spondylosis Obesity ALEXANDRA (obstructive sleep apnea) Venous stasis ulcer of left ankle limited to breakdown of skin ([facility] Venous insufficiency of left lower extremity Past Medical History: Diagnosis Date Arthritis Falling 2 years ago spine was twisted 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 omeprazole (PriLOSEC) 10 mg capsule Take 1 capsule (10 mg total) by mouth every morning before breakfast. No current facility-administered medications for this visit. Allergies Allergen Reactions Doxycycline Hives Hives Latex, Natural Rubber Rash Sulfamethoxazole-Trimethoprim Rash Rash The following portions of the patient's history were reviewed and updated as appropriate: allergies, current medications, past family history, past medical history, past social history, past surgicalhistory, problem list, and medication reconciliation was completed including current medication andpost discharge medication. Pain Scale: Pain Scale 0/10: 0 Review of Systems Constitutional: Negative. Negative for activity change, appetite change and fever. HENT: Negative. Negative for trouble swallowing. Respiratory: Positive for apnea (ALEXANDRA). Negative for cough, shortness of breath and wheezing. Cardiovascular: Negative. Negative for chest pain, palpitations and leg swelling. Gastrointestinal: Negative. Negative for abdominal distention, nausea and vomiting. Genitourinary: Negative. Negative for dysuria, frequency and urgency. Musculoskeletal: Positive for back pain and gait problem. Negative for neck stiffness. Skin: Positive for color change and wound. Neurological: Positive for dizziness. Negative for numbness and headaches. Objective: Vitals: 04/10/24 0810 BP: (!) 166/94 Pulse: 75 Temp: 36.2 C (97.1 F) Physical Exam Vitals and nursing note reviewed. Constitutional: Appearance: He is well-developed. HENT: Head: Normocephalic and atraumatic. Cardiovascular: Rate and Rhythm: Normal rate and regular rhythm. Pulses: Dorsalis pedis pulses are 2+ on the right side and 2+ on the left side. Posterior tibial pulses are 2+ on the right side and 2+ on the left side. Heart sounds: Normal heart sounds. No murmur heard. No gallop. Comments: Left pedal pulses palpable Pulmonary: Effort: Pulmonary effort is normal. Breath sounds: Normal breath sounds. No wheezing. Abdominal: General: Bowel sounds are normal. Palpations: Abdomen is soft. Musculoskeletal: General: Normal range of motion. Cervical back: Normal range of motion. Right foot: Foot drop present. Left foot: Foot drop present. Feet: Comments: Left leg hemosiderin staining, dark discoloration and hyperpigmentation no edema Diminished hair growth Warm to touch Skin: General: Skin is warm and dry. Neurological: Mental Status: He is alert and oriented to person, place, and time. CEAP classification (note all that apply or n/a): CEAP - Clinical class Right Left C0 - No visible or palpable signs of venous disease C1 - Spider telangiectasias or reticular veins C2 - Varicose veins >3-4 mm C3 - Edema x x C4a - Hyperpigmentation or erythematous dermatitis x x C4b - Lipodermatosclerosis or atrophie gorge x C5 - Healed venous ulcer x C6 - Active venous ulcer S or A - Symptomatic, i.e. ache, pain, tightness, skin irritation, heaviness, muscle cramps, other complaints attributable to venous dysfunction vs. asymptomatic. A A Wound Assessment Assessment/Plan/Education: 1. Venous stasis ulcer of left ankle limited to breakdown of skin with varicose veins (CMS-HCC) Wash mild soap and water Apply Vaseline daily Avoid prolonged leg dependency. Follow with vascular as scheduled Wash legs and feet every day, apply moisturizing lotion at night, avoid lotion between the toes. Raise feet above the level of the heart 10-15 min several times daily. Follow a low sodium diet. Wear compression stockings as prescribed. Patient has compression stockings at home Calf pump exercises daily. Patient instructed in Other: traumatic wounds care to left ankle region. 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 Follow up in wound clinic PRN Instructed to contact wound clinic, PCP or ER should symptoms worsen. The patient was taught to watch for S/S of infection (redness, pus, pain, increased swelling, chills or fever) and to call the PCP or wound care clinic if such occurs. The patient was educated on offloading the area by avoiding direct pressure to the wound bed. Education as well as the pathophysiology of the disease process was provided on infection, edema, necrotic tissue and its relationship tononhealing wounds. Education was also provided on treatment plan. Patient verbalized understanding. Total time spent was 15 minutes: Preparing to see the patient (e.g., review of tests) Obtaining and/or reviewing separately obtained history Performing a medically appropriate examination and/or evaluation Counseling and educating the patient/family/caregiver Ordering medications, tests, or procedures Documenting clinical information in the electronic or other health record - EMILY PROCTOR 04/10/24 9:08 AM Catherine Ayoub APRN, POURED PIPE MAKER, CWS, [facility] F [facility]: [phone] EMILY Proctor 12/04/23 [id number] EMILY Proctor 12/18/23 1020 Catherine Ayoub, FIRE PROTECTION EQUIPMENT TECHNICIAN-POURED PIPE MAKER 12/18/23 1158 Catherine Ayoub, FIRE PROTECTION EQUIPMENT TECHNICIAN-POURED PIPE MAKER 12/25/23 1016 Catherine Ayoub, FIRE PROTECTION EQUIPMENT TECHNICIAN-POURED PIPE MAKER 01/03/24 1012 Catherine Ayoub, FIRE PROTECTION EQUIPMENT TECHNICIAN-POURED PIPE MAKER 01/10/24 0929 Catherine Ayoub, FIRE PROTECTION EQUIPMENT TECHNICIAN-POURED PIPE MAKER 01/22/24 0927 Catherine Ayoub, FIRE PROTECTION EQUIPMENT TECHNICIAN-POURED PIPE MAKER 02/05/24 1005 Catherine Ayoub, FIRE PROTECTION EQUIPMENT TECHNICIAN-POURED PIPE MAKER 02/19/24 0854 Catherine Ayoub, FIRE PROTECTION EQUIPMENT TECHNICIAN-POURED PIPE MAKER 02/26/24 0932 Catherine Ayoub, FIRE PROTECTION EQUIPMENT TECHNICIAN-POURED PIPE MAKER 04/10/24 0913 documented in this [facility]01-03-2025 Instructions* Patient Instructions* Joycelyn Skaggs RN - 04/10/2024 8:00 AM EST Venous insufficiency testing completed 12/26/23 Wound Management Treatment Plan Wound Location(s): left lower leg wound is healing Then apply Vaseline to newly healed skin ACTIVITY: continue to use your peddle machine NUTRITION: High protein diet SKIN CARE: Moisturize all dry and intact skin with Eucerin cream or Vaseline daily SWELLING CONTROL: Elevate legs above the heart at least 3 times a day for 10-15 minutes Length Width Depth Wound drainage Type Description documented in this [facility]12-03-2024 Miscellaneous Notes* Telephone Encounter - Karly Canales - 03/10/2024 3:24 PM EST Returned patient VM and LM I will cancel procedure for Saturday along with postop appointments, but Icannot recommend proceeding or not regarding skin changes, but suggest he make a f/u appt with Dr. Cho unless he will see her in wound care soon. documented in this [facility]12-03-2024 Telephone encounter Note* Telephone Encounter - Karly Canales - 03/10/2024 3:24 PM EST Returned patient VM and LM I will cancel procedure for Saturday along with postop appointments, but Icannot recommend proceeding or not regarding skin changes, but suggest he make a f/u appt with Dr. Cho unless he will see her in wound care soon. [facility]11-22-2024 Miscellaneous Notes* Telephone Encounter - Karly Canales - 02/28/2024 12:22 PM EST LM for patient I would like to move his procedure time to 9:30 on 03/13/24 arriving at 9:00 and asked him to return my call. [facility] Telephone encounter Note* Telephone Encounter - Karly Canales - 02/28/2024 12:22 PM EST LM for patient I would like to move his procedure time to 9:30 on 03/13/24 arriving at 9:00 and asked him to return my call. [facility]11-20-2024 History of Present illness Narrative* Catherine Ayoub, FIRE PROTECTION EQUIPMENT TECHNICIAN-POURED PIPE MAKER - 02/26/2024 8:20 AM EST Images from the original note were not included. Wound Care Progress Note Patient: Rebeca Nicole Date of : 1950 Chief Compliant: Left leg ulceration, follow up SUBJECTIVE/HPI: Rebeca is a 73 y.o. male who presents to [facility] for evaluation of 1 ulcer(s) on the left lateral and posterior malleolus. Patient established with wound clinic on 11/26/2023. Current daily wound care includes: Triamcinolone ointment 0.1% thin layer application daily, cover leg with Vaseline, using latex free DEREK wrap for swelling control.. Vascular surgical procedure, RFA ablation of left GSV scheduled for early March 13, 2024 Patient reports he dropped a flower pot on the right lower ankle region mid October,. Patient hasbeen following with podiatry for the wounds. Reports he has had Unna boots x2 without success. Patient's chart was reviewed for all available supporting documentation, laboratory results and radiographic examination including external notes. Measurable wound changes: no measurable wounds, rash is resolved 1.0 cm increase LLE calf circumference Patient accompanied by: self, patient ambulates with a cane Nutritional screen shows patient does not take in three servings of protein per day. Patient does deny fever, chills, sweats, or other signs of infection. Prescribed antibiotics: none Today's reported Blood Sugar:N/A No results found for: HGBA1C Tobacco use: former smoker Contributing comorbid conditions: Lumbar spondylosis, bilateral foot drop, history of West Nile virus. Review of Venous Insufficiency Testing 12/27/2023 Interpretation Summary Right: Common femoral vein is compressible with spontaneous phasic spectral Doppler waveforms. Left: Limited visualization of veins in the calf due to edema. Remaining deep visualized venous segments are compressible with spontaneous phasic spectral Doppler waveforms. Superficial veins are compressible. Saphenopopliteal junction was not visualized, intersaphenous vein was noted. Venous reflux time >1000 ms is noted in the femoral and popliteal vein. Saphenofemoral junction reflux >500 ms with multilevel great saphenous vein reflux. Video Engineer vein with 4089 ms reflux time and 3.6 mm diameter noted in the proximal medial calf. General: This examination was performed in the upright position. Conclusions: RIGHT: No evidence of right common femoral vein deep vein thrombosis or significant reflux.LEFT: No evidence of deep or superficial vein thrombosis of the lower extremity. Femoropopliteal deep vein reflux. Video Engineer vein reflux. Saphenofemoral junction and great saphenous superficial vein reflux. 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, bilateral Foot drop, right Foot drop, left Psoas tendonitis of left side Benign prostatic hyperplasia with lower urinary tract symptoms GERD (gastroesophageal reflux disease) Lumbar spondylosis Obesity ALEXANDRA (obstructive sleep apnea) Venous stasis ulcer of left ankle limited to breakdown of skin ([facility]) Venous insufficiency of left lower extremity Past Medical History: Diagnosis Date Arthritis Falling 2 years ago spine was twisted 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 omeprazole (PriLOSEC) 10 mg capsule Take 1 capsule (10 mg total) by mouth every morning before breakfast. triamcinolone (KENALOG) 0.1 % cream Once daily application, apply a thin layer daily to left lower leg 30 g 0 No current facility-administered medications for this visit. Allergies Allergen Reactions Doxycycline Hives Hives Latex, Natural Rubber Rash Sulfamethoxazole-Trimethoprim Rash Rash The following portions of the patient's history were reviewed and updated as appropriate: allergies, current medications, past family history, past medical history, past social history, past surgicalhistory, problem list, and medication reconciliation was completed including current medication andpost discharge medication. Pain Scale: Pain Scale 0/10: Unable to rate Review of Systems Constitutional: Negative. Negative for activity change, appetite change and fever. HENT: Negative. Negative for trouble swallowing. Respiratory: Positive for apnea (ALEXANDRA). Negative for cough, shortness of breath and wheezing. Cardiovascular: Negative. Negative for chest pain, palpitations and leg swelling. Gastrointestinal: Negative. Negative for abdominal distention, nausea and vomiting. Genitourinary: Negative. Negative for dysuria, frequency and urgency. Musculoskeletal: Positive for back pain and gait problem. Negative for neck stiffness. Skin: Positive for color change and wound. Neurological: Positive for dizziness. Negative for numbness and headaches. Objective: Vitals: 02/26/24 0824 BP: (!) 146/98 Pulse: 61 Resp: 16 Temp: 36.2 C (97.1 F) Physical Exam Vitals and nursing note reviewed. Constitutional: Appearance: He is well-developed. HENT: Head: Normocephalic and atraumatic. Cardiovascular: Rate and Rhythm: Normal rate and regular rhythm. Pulses: Dorsalis pedis pulses are 2+ on the right side and 2+ on the left side. Posterior tibial pulses are 2+ on the right side and 2+ on the left side. Heart sounds: Normal heart sounds. No murmur heard. No gallop. Comments: Left pedal pulses palpable Pulmonary: Effort: Pulmonary effort is normal. Breath sounds: Normal breath sounds. No wheezing. Abdominal: General: Bowel sounds are normal. Palpations: Abdomen is soft. Musculoskeletal: General: Normal range of motion. Cervical back: Normal range of motion. Right foot: Foot drop present. Left foot: Foot drop present. Feet: Comments: Left leg hemosiderin staining, dark discoloration and hyperpigmentation 1+ soft pitting edema Diminished hair growth Warm to touch No visible varicose veins Skin: General: Skin is warm and dry. Neurological: Mental Status: He is alert and oriented to person, place, and time. CEAP classification (note all that apply or n/a): CEAP - Clinical class Right Left C0 - No visible or palpable signs of venous disease C1 - Spider telangiectasias or reticular veins C2 - Varicose veins >3-4 mm C3 - Edema x x C4a - Hyperpigmentation or erythematous dermatitis x x C4b - Lipodermatosclerosis or atrophie gorge x C5 - Healed venous ulcer C6 - Active venous ulcer x S or A - Symptomatic, i.e. ache, pain, tightness, skin irritation, heaviness, muscle cramps, other complaints attributable to venous dysfunction vs. asymptomatic. A S Wound Assessment Wound 12/04/23 1 Traumatic Calf Posterior;Left;Lower (Active) Wound Image 02/26/24836 Site Assessment Dry;Fragile;[place] 02/26/24836 Melissa-wound Assessment Dry;Fragile;Intact 02/26/24836 Shape no open areas noted, scattered dry, fragile pink/red areas of skin to left lower leg anterior, medial, lateral 02/26/24836 Wound Length (cm) 0 cm 02/26/24836 Wound Width (cm) 0 cm 02/26/24836 Wound Surface Area (cm^2) 0 cm^2 02/26/24836 Wound Depth (cm) 0 cm 02/26/24836 Wound Volume (cm^3) 0 cm^3 02/26/24836 Change in Wound Size % 100 02/26/24836 Drainage Amount None 02/26/24836 Treatments Soak with;Vashe/Hypochlorous Acid 02/26/24836 Debridement Performed? N 02/26/24836 Dressing Type Other (Comment);Gauze Rolled/Kerlix 02/26/24836 Dressing Changed Changed 11/20/24 0837 Dressing Status Clean;Dry;Intact 02/26/24 0837 Assessment/Plan/Education: 1. Venous stasis ulcer of left ankle limited to breakdown of skin, unspecified whether varicose veins present ([facility]) 2. Edema of left lower leg Wash mild soap and water Apply a thin layer of triamcinolone 0.1% ointment daily to left lower leg until current tube in completed. Cover with dry dressing of comfort Secure with latex free DEREK wrap Latex added to allergy list Avoid prolonged leg dependency. Follow with vascular as scheduled Wash legs and feet every day, apply moisturizing lotion at night, avoid lotion between the toes. Raise feet above the level of the heart 10-15 min several times daily. Follow a low sodium diet. Wear compression stockings as prescribed. Patient has compression stockings at home Calf pump exercises daily. Patient instructed in Other: traumatic wounds care to left ankle region. 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 compliance long-term goal: wound closure Patient verbalize ability to perform wound care. Follow up in wound clinic in 4 week for provider evaluation Instructed to contact wound clinic, PCP or ER should symptoms worsen. The patient was taught to watch for S/S of infection (redness, pus, pain, increased swelling, chills or fever) and to call the PCP or wound care clinic if such occurs. The patient was educated on offloading the area by avoiding direct pressure to the wound bed. Education as well as the pathophysiology of the disease process was provided on infection, edema, necrotic tissue and its relationship tononhealing wounds. Education was also provided on treatment plan. Patient verbalized understanding. Total time spent was 15 minutes: Preparing to see the patient (e.g., review of tests) Obtaining and/or reviewing separately obtained history Performing a medically appropriate examination and/or evaluation Counseling and educating the patient/family/caregiver Ordering medications, tests, or procedures Documenting clinical information in the electronic or other health record - EMILY PROCTOR 02/26/24 9:28 AM Catherine Ayoub APRN, SHARLENE, CWS, LUIS F [facility]: [phone] EMILY Proctor 12/04/23 1106 EMILY Proctor 12/18/23 1020 EMILY Proctor 12/18/23 1158 Catherine Ayoub, FIRE PROTECTION EQUIPMENT TECHNICIAN-POURED PIPE MAKER 12/25/23 1016 Catherine Ayoub, FIRE PROTECTION EQUIPMENT TECHNICIAN-POURED PIPE MAKER 01/03/24 1012 Catherine Ayoub, FIRE PROTECTION EQUIPMENT TECHNICIAN-POURED PIPE MAKER 01/10/24 0929 Catherine Ayoub, FIRE PROTECTION EQUIPMENT TECHNICIAN-POURED PIPE MAKER 01/22/24 0927 Catherine Ayoub, FIRE PROTECTION EQUIPMENT TECHNICIAN-POURED PIPE MAKER 02/05/24 1005 Catherine Ayoub, FIRE PROTECTION EQUIPMENT TECHNICIAN-[facility] 02/19/24 0854 Catherine Ayoub, FIRE PROTECTION EQUIPMENT TECHNICIAN-[facility] 02/26/24 0932 [facility] this [facility] Instructions* Patient Instructions* Bianca Berger RN - 02/26/2024 8:20 AM EST Venous insufficiency testing completed 12/26/23 Wound Management Treatment Plan Wound Location(s): left lower leg HOW TO CARE FOR YOUR WOUND The following should be performed Daily and as needed. STEP 1: Cleanse wound with Soap and water, rinse well, and pat dry. STEP 2: Apply steriod cream (Triamciolone Acetonide cream) to any red fragile areas of skin to left lower leg Then apply Vaseline to entire left lower leg Apply Vaseline to right lower leg STEP 3: Wrap left lower leg with roll gauze Then apply derek wrap from base of toes to bend of knee Apply Vaseline after steroid cream ACTIVITY: Avoid direct pressure to wound(s) at all times NUTRITION: High protein diet SKIN CARE: Moisturize all dry and intact skin with Eucerin cream or Vaseline daily SWELLING CONTROL: Elevate legs above the heart at least 3 times a day for 10-15 minutes ITEMS TO FOLLOW UP ON: VASCULAR REFERRAL SENT (Call within the week if you don't hear from them) Venous testing ordered 12-18-23 Length Width Depth Wound 12/04/23 1 Traumatic Calf Posterior;Left;Lower-Wound Length (cm): 0 cm Wound 12/04/23 1 Traumatic Calf Posterior;Left;Lower-Wound Width (cm): 0 cm Wound 12/04/23 1 Traumatic Calf Posterior;Left;Lower-Wound Depth (cm): 0 cm Wound drainage Type Description [facility] History of Present illness Narrative* Catherine Ayoub, FIRE PROTECTION EQUIPMENT TECHNICIAN-POURED PIPE MAKER - 02/19/2024 8:00 AM EST Images from the original note were not included. Wound Care Progress Note Patient: Rebeca Nicole Date of : 1950 Chief Compliant: Left leg ulceration, follow up SUBJECTIVE/HPI: Rebeca is a 73 y.o. male who presents to [facility] for evaluation of 1 ulcer(s) on the left lateral and posterior malleolus. Patient established with wound clinic on 11/26/2023. Current daily wound care includes: Gentamicin, Xeroform, ABD pad, roll gauze, medium compression Tubigrip. Reports developing a raised, red, rash of left lower leg with intermittent itching, likely related to the latex in the Tubigrip. Patient reports he has elevating his legs periodically throughout the day. Vascular surgical procedure, RFA ablation of left GSV scheduled for early March, Patient reports he dropped a flower pot on the right lower ankle region mid October,. Patient hasbeen following with podiatry for the wounds. Reports he has had Unna boots x2 without success. Patient's chart was reviewed for all available supporting documentation, laboratory results and radiographic examination including external notes. Measurable wound changes: Increased wound measurement, new rash developmend Stable LLE calf circumference. Patient accompanied by: self, patient ambulates with a cane Nutritional screen shows patient does not take in three servings of protein per day. Patient does deny fever, chills, sweats, or other signs of infection. Prescribed antibiotics: none Today's reported Blood Sugar:N/A No results found for: HGBA1C Tobacco use: former smoker Contributing comorbid conditions: Lumbar spondylosis, bilateral foot drop, history of West Nile virus. Review of Venous Insufficiency Testing 12/27/2023 Interpretation Summary Right: Common femoral vein is compressible with spontaneous phasic spectral Doppler waveforms. Left: Limited visualization of veins in the calf due to edema. Remaining deep visualized venous segments are compressible with spontaneous phasic spectral Doppler waveforms. Superficial veins are compressible. Saphenopopliteal junction was not visualized, intersaphenous vein was noted. Venous reflux time >1000 ms is noted in the femoral and popliteal vein. Saphenofemoral junction reflux >500 ms with multilevel great saphenous vein reflux. Video Engineer vein with 4089 ms reflux time and 3.6 mm diameter noted in the proximal medial calf. General: This examination was performed in the upright position. Conclusions: RIGHT: No evidence of right common femoral vein deep vein thrombosis or significant reflux.LEFT: No evidence of deep or superficial vein thrombosis of the lower extremity. Femoropopliteal deep vein reflux. Video Engineer vein reflux. Saphenofemoral junction and great saphenous superficial vein reflux. 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 omeprazole (PriLOSEC) 10 mg capsule Take 1 capsule (10 mg total) by mouth every morning before breakfast. triamcinolone (KENALOG) 0.1 % cream Once daily application, apply a thin layer daily to left lower leg 30 g 0 Current Facility-Administered Medications Medication Dose Route Frequency Provider Last Rate Last Admin triamcinolone (KENALOG) 0.1 % cream 1 Application 1 Application topical PRN Catherine Ayoub [id number] Application at 02/19/24 0844 Allergies Allergen Reactions Doxycycline Hives Hives Sulfamethoxazole-Trimethoprim Rash Rash The following portions of the patient's history were reviewed and updated as appropriate: allergies, current medications, past family history, past medical history, past social history, past surgicalhistory, problem list, and medication reconciliation was completed including current medication andpost discharge medication. Pain Scale: Pain Scale 0/10: 4 Review of Systems Constitutional: Negative. Negative for activity change, appetite change and fever. HENT: Negative. Negative for trouble swallowing. Respiratory: Positive for apnea (ALEXANDRA). Negative for cough, shortness of breath and wheezing. Cardiovascular: Negative. Negative for chest pain, palpitations and leg swelling. Gastrointestinal: Negative. Negative for abdominal distention, nausea and vomiting. Genitourinary: Negative. Negative for dysuria, frequency and urgency. Musculoskeletal: Positive for back pain and gait problem. Negative for neck stiffness. Skin: Positive for color change and wound. Neurological: Positive for dizziness. Negative for numbness and headaches. Objective: Vitals: 02/19/24 0809 BP: 143/82 Pulse: 75 Resp: 16 Temp: 36.3 C (97.4 F) Physical Exam Vitals and nursing note reviewed. Constitutional: Appearance: He is well-developed. HENT: Head: Normocephalic and atraumatic. Cardiovascular: Rate and Rhythm: Normal rate and regular rhythm. Pulses: Dorsalis pedis pulses are 2+ on the right side and 2+ on the left side. Posterior tibial pulses are 2+ on the right side and 2+ on the left side. Heart sounds: Normal heart sounds. No murmur heard. No gallop. Comments: Left pedal pulses palpable Pulmonary: Effort: Pulmonary effort is normal. Breath sounds: Normal breath sounds. No wheezing. Abdominal: General: Bowel sounds are normal. Palpations: Abdomen is soft. Musculoskeletal: General: Normal range of motion. Cervical back: Normal range of motion. Right foot: Foot drop present. Left foot: Foot drop present. Feet: Comments: Left leg hemosiderin staining, dark discoloration and hyperpigmentation 1+ soft pitting edema Diminished hair growth Warm to touch No visible varicose veins Skin: General: Skin is warm and dry. Neurological: Mental Status: He is alert and oriented to person, place, and time. CEAP classification (note all that apply or n/a): CEAP - Clinical class Right Left C0 - No visible or palpable signs of venous disease C1 - Spider telangiectasias or reticular veins C2 - Varicose veins >3-4 mm C3 - Edema x x C4a - Hyperpigmentation or erythematous dermatitis x xa C4b - Lipodermatosclerosis or atrophie gorge C5 - Healed venous ulcer C6 - Active venous ulcer x S or A - Symptomatic, i.e. ache, pain, tightness, skin irritation, heaviness, muscle cramps, other complaints attributable to venous dysfunction vs. asymptomatic. A S Wound Assessment Wound 12/04/23 1 Traumatic Calf Posterior;Left;Lower (Active) Wound Image 02/19/24818 Site Assessment Moist 02/19/24818 Melissa-wound Assessment Fragile 02/19/24818 Shape Blocked 02/19/24818 Wound Length (cm) 15 cm 02/19/24818 Wound Width (cm) 17 cm 02/19/24818 Wound Surface Area (cm^2) 255 cm^2 02/19/24818 Wound Depth (cm) 0.1 cm 02/19/24818 Wound Volume (cm^3) 25.5 cm^3 02/19/24818 Change in Wound Size % -3327.42 02/19/24818 Drainage Description Serous 02/19/24818 Drainage Amount Small 02/19/24818 Treatments Cleansed with;Wound cleanser;Soak with;Vashe/Hypochlorous Acid 02/19/24818 Debridement Performed? N 02/19/24842 Dressing Type Abdominal dressing 02/19/24842 Dressing Changed Changed 02/19/24842 Dressing Status Clean;Dry;Intact 02/19/24842 Assessment/Plan/Education: 1. Venous stasis ulcer of left ankle limited to breakdown of skin with varicose veins ([facility]) 2. Rash due to allergy Wash mild soap and water STOP gentamicin STOP Xeroform gauze Apply a thin layer of triamcinolone 0.1% ointment daily to left lower leg rash Cover with ABD pad STOP Medium compression Tubigrip Secure with latex free DEREK wrap Latex added to allergy list Avoid prolonged leg dependency. Follow with vascular as scheduled Wash legs and feet every day, apply moisturizing lotion at night, avoid lotion between the toes. Raise feet above the level of the heart 10-15 min several times daily. Follow a low sodium diet. Wear compression stockings as prescribed. Patient has compression stockings at home Calf pump exercises daily. Patient instructed in Other: traumatic wounds care to left ankle region. 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 Follow up in wound clinic in 1 week for provider evaluation Instructed to contact wound clinic, PCP or ER should symptoms worsen. The patient was taught to watch for S/S of infection (redness, pus, pain, increased swelling, chills or fever) and to call the PCP or wound care clinic if such occurs. The patient was educated on offloading the area by avoiding direct pressure to the wound bed. Education as well as the pathophysiology of the disease process was provided on infection, edema, necrotic tissue and its relationship tononhealing wounds. Education was also provided on treatment plan. Patient verbalized understanding. Total time spent was 22 minutes: Preparing to see the patient (e.g., review of tests) Obtaining and/or reviewing separately obtained history Performing a medically appropriate examination and/or evaluation Counseling and educating the patient/family/caregiver Ordering medications, tests, or procedures Documenting clinical information in the electronic or other health record - EMILY PROCTOR 02/19/24 8:45 AM Catherine Ayoub APRN, SHARLENE, RENATO, LUIS F [facility]: [phone] EMILY Proctor 12/04/23 1106 EMILY Proctor 12/18/23 1020 EMILY Proctor 12/18/23 1158 EMILY Proctor 12/25/23 1016 EMILY Proctor 01/03/24 1012 EMILY Proctor 01/10/24 0929 EMILY Proctor 01/22/24 0927 EMILY Proctor 02/05/24 1005 EMILY Proctor 02/19/24 0854 documented in this encounterSum[facility] CampusXE Corporation [facility] [id number] Instructions* Patient Instructions* Clare Mckeon RN - 02/19/2024 8:00 AM EST Venous insufficiency testing completed 12/26/23 Steroid ointment applied today 01-22-24 Wound Management Treatment Plan Wound Location(s): left posterior calf HOW TO CARE FOR YOUR WOUND The following should be performed Daily and as needed. STEP 1: Cleanse wound with Soap and water, rinse well, and pat dry. STEP 2: Apply steriod cream (Triamciolone Acetonide cream) to wound and all reddened areas STEP 3: Cover with ABD dressing STEP 4: Wrap with roll gauze STEP 6: Secure with derek wrap Apply Vaseline after steroid cream ACTIVITY: Avoid direct pressure to wound(s) at all times NUTRITION: High protein diet SKIN CARE: Moisturize all dry and intact skin with Eucerin cream or Vaseline daily SWELLING CONTROL: Elevate legs above the heart at least 3 times a day for 10-15 minutes ITEMS TO FOLLOW UP ON: VASCULAR REFERRAL SENT (Call within the week if you don't hear from them) Venous testing ordered 12-18-23 Length Width Depth Wound 12/04/23 1 Traumatic Calf Posterior;Left;Lower-Wound Length (cm): 15 cm Wound 12/04/23 1 Traumatic Calf Posterior;Left;Lower-Wound Width (cm): 17 cm Wound 12/04/23 1 Traumatic Calf Posterior;Left;Lower-Wound Depth (cm): 0.1 cm Wound drainage Type Description small Serosanginous yellow [facility] History of Present illness Narrative* Morales Ramon DPM - 02/17/2024 8:30 AM EST Images from the original note were not included. Subjective Patient ID: See Nicole is a 73 y.o. male who presents for Callus care (See Nicole is a 73 y.o. male who presents for right foot Callous check. Patient relates he continues wound care for the left ankle. Procedure with vacsular 03/13/2024. SS: 14.). HPI Established patient returns to clinic for painful callus and toenails of the right foot. Review of Systems Constitutional: Negative for activity change and fatigue. Respiratory: Negative for chest tightness and shortness of breath. Cardiovascular: Negative for chest pain and leg swelling. Musculoskeletal: Positive for gait problem. Negative for arthralgias and joint swelling. Skin: Positive for wound. Negative for color change. Allergic/Immunologic: Negative for immunocompromised state. Neurological: Positive for weakness and numbness. Hematological: Does not bruise/bleed easily. Psychiatric/Behavioral: Negative for agitation and behavioral problems. Medications Current Outpatient Medications: cholecalciferol (Vitamin D-3) 50 MCG (1999 UT) capsule, 2,000 Units., Disp: , Rfl: minocycline 100 MG capsule, Take 100 mg by mouth., Disp: , Rfl: Misc Natural Products (PROSTATE SUPPORT PO), Take by mouth, Disp: , Rfl: omeprazole (PriLOSEC) [address] capsule, TAKE 1 CAPSULE BY MOUTH 30 MINUTES BEFORE MORNING MEAL EVERY DAY, Disp: , Rfl: tiZANidine (Zanaflex) 4 MG tablet, Take 4 mg by mouth every 12 (twelve) hours., Disp: , Rfl: Allergies Latex, Prednisone, Tetracycline, Doxycycline, and Sulfamethoxazole-trimethoprim Past Surgical History Past Surgical History: Procedure Laterality Date COLONOSCOPY 2009 Disease:diverticulosis EGD 2007 EYE SURGERY 2018 HIP ARTHROPLASTY Left JOINT REPLACEMENT 2002 OTHER SURGICAL HISTORY 2002 TOTAL HIP ARTHROPLASTY 2002 x2 TOTAL KNEE ARTHROPLASTY 2006 x2 VASECTOMY 1990 Family History Family History Problem Relation Name Age of Onset Heart disease Mother May Enoch Hypertension Mother May Enoch Colon cancer Mother May Vogabriel Arthritis Mother May Enoch Other (epilepsy) Father [place] Nicole Heart disease Father [place] Nicole Hypertension Father [place] Vogabriel Cancer Father [place] Nicole Cancer Paternal Grandfather Rosendo Nicole Hypertension Sibling Heart disease Sibling Other (epilepsy) Son Objective Physical Exam Constitutional: General: He is not in acute distress. Comments: Presents to clinic ambulating with cane assistance. Drop foot on the right foot. HENT: Head: Atraumatic. Cardiovascular: Comments: Hemosiderin deposition bilateral lower extremities. DP, PT pulses 1/4. Musculoskeletal: Cervical back: No tenderness. Comments: Drop foot more notable on the left side. Ankle dorsiflexion 2/5 bilaterally. Skin: Capillary Refill: Capillary refill takes less than 2 seconds. Comments: Compression wrap in place left leg. Diffuse hyperkeratotic tissue noted plantar 5th metatarsal head, right foot. Skin lines passed through the lesion, no pinpoint, thrombosed capillaries. Tender with direct palpation. All 5 toenails right foot are elongated. Second toenail exhibits clinical mycosis with thickened appearance, yellow/brown discoloration, crumbly texture, subungual debris. Hallux nails slightly tender with manipulation. Neurological: General: No focal deficit present. Mental Status: He is alert. Psychiatric: Mood and Affect: Mood normal. Behavior: Behavior normal. Assessment/Plan ICD-10-CM 1. Corns and callosities L84 2. Onychomycosis B35.1 3. Right foot pain M79.671 Patient was examined and evaluated. 5 toenails right foot were debrided in length and thickness today utilizing a nail nipper and electric bur grinder watch parts without incident. All hyperkeratotic tissue of the right foot sharply debrided by me with a sterile 15. Blade without incident. Patient noted reliefof symptomatology post-debridement. I have recommended moisturizing the feet on a daily basis and discussed proper pedal hygiene. Follow-up as needed per patient request. This note was created with the assistance of a speech recognition program. While intending to generate a timely document that accurately reflects the content of the visit, no guarantee can be provided that every grammatical or spelling mistake has been or will be identified or corrected. Thank you for your understanding. Morales Ramon DPM documented in this encounterUniversity of Missouri Health [id number] History of Present illness Narrative* Catherine Ayoub, FIRE PROTECTION EQUIPMENT TECHNICIAN-POURED PIPE MAKER - 02/05/2024 8:00 AM EDT Images from the original note were not included. Wound Care Progress Note Patient: Rebeca Nicole Date of : 1950 Chief Compliant: Left leg ulceration, follow up SUBJECTIVE/HPI: Rebeca is a 73 y.o. male who presents to [facility] for evaluation of 1 ulcer(s) on the left lateral and posterior malleolus. Patient established with wound clinic on 11/26/2023. Current daily wound care includes: Gentamicin, Xeroform, ABD pad, roll gauze, medium compression Tubigrip.. Patient reports he has elevating his legs periodically throughout the day. Patient is declining offer for UNNA boot reapplication due to need for a shower. Vascular appointment 02/03/24, recommend RFA ablation of left GSV, prior authorization pending Patient reports he dropped a flower pot on the right lower ankle region mid October,. Patient hasbeen following with podiatry for the wounds. Reports he has had Unna boots x2 without success. Patient's chart was reviewed for all available supporting documentation, laboratory results and radiographic examination including external notes. Measurable wound changes: Increased wound measurement, wound is circumferential around left ankle, minimal drainage. Stable LLE calf circumference. Patient accompanied by: self, patient ambulates with a cane Nutritional screen shows patient does not take in three servings of protein per day. Patient does deny fever, chills, sweats, or other signs of infection. Prescribed antibiotics: none Today's reported Blood Sugar:N/A No results found for: HGBA1C Tobacco use: former smoker Contributing comorbid conditions: Lumbar spondylosis, bilateral foot drop, history of West Nile virus. Review of Venous Insufficiency Testing 12/27/2023 Interpretation Summary Right: Common femoral vein is compressible with spontaneous phasic spectral Doppler waveforms. Left: Limited visualization of veins in the calf due to edema. Remaining deep visualized venous segments are compressible with spontaneous phasic spectral Doppler waveforms. Superficial veins are compressible. Saphenopopliteal junction was not visualized, intersaphenous vein was noted. Venous reflux time >1000 ms is noted in the femoral and popliteal vein. Saphenofemoral junction reflux >500 ms with multilevel great saphenous vein reflux. Video Engineer vein with 4089 ms reflux time and 3.6 mm diameter noted in the proximal medial calf. General: This examination was performed in the upright position. Conclusions: RIGHT: No evidence of right common femoral vein deep vein thrombosis or significant reflux.LEFT: No evidence of deep or superficial vein thrombosis of the lower extremity. Femoropopliteal deep vein reflux. Video Engineer vein reflux. Saphenofemoral junction and great saphenous superficial vein reflux. 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 omeprazole (PriLOSEC) 10 mg capsule Take 1 capsule (10 mg total) by mouth every morning before breakfast. Current Facility-Administered Medications Medication Dose Route Frequency Provider Last Rate Last Admin triamcinolone (KENALOG) 0.1 % cream 1 Application 1 Application topical PRN Catherine Ayoub APRN-CNP1 Application at 02/05/24 0842 Allergies Allergen Reactions Doxycycline Hives Hives Sulfamethoxazole-Trimethoprim Rash Rash The following portions of the patient's history were reviewed and updated as appropriate: allergies, current medications, past family history, past medical history, past social history, past surgicalhistory, problem list, and medication reconciliation was completed including current medication andpost discharge medication. Pain Scale: Pain Scale 0/10: 3 Review of Systems Constitutional: Negative. Negative for activity change, appetite change and fever. HENT: Negative. Negative for trouble swallowing. Respiratory: Positive for apnea (ALEXANDRA). Negative for cough, shortness of breath and wheezing. Cardiovascular: Negative. Negative for chest pain, palpitations and leg swelling. Gastrointestinal: Negative. Negative for abdominal distention, nausea and vomiting. Genitourinary: Negative. Negative for dysuria, frequency and urgency. Musculoskeletal: Positive for back pain and gait problem. Negative for neck stiffness. Skin: Positive for color change and wound. Neurological: Positive for dizziness. Negative for numbness and headaches. Objective: Vitals: 02/05/24 0808 BP: 150/87 Pulse: 82 Resp: 16 Temp: 36.3 C (97.3 F) Physical Exam Vitals and nursing note reviewed. Constitutional: Appearance: He is well-developed. HENT: Head: Normocephalic and atraumatic. Cardiovascular: Rate and Rhythm: Normal rate and regular rhythm. Pulses: Dorsalis pedis pulses are 2+ on the right side and 2+ on the left side. Posterior tibial pulses are 2+ on the right side and 2+ on the left side. Heart sounds: Normal heart sounds. No murmur heard. No gallop. Comments: Left pedal pulses palpable Pulmonary: Effort: Pulmonary effort is normal. Breath sounds: Normal breath sounds. No wheezing. Abdominal: General: Bowel sounds are normal. Palpations: Abdomen is soft. Musculoskeletal: General: Normal range of motion. Cervical back: Normal range of motion. Right foot: Foot drop present. Left foot: Foot drop present. Feet: Comments: Left leg hemosiderin staining, dark discoloration and hyperpigmentation 1+ soft pitting edema Diminished hair growth Warm to touch No visible varicose veins Skin: General: Skin is warm and dry. Neurological: Mental Status: He is alert and oriented to person, place, and time. CEAP classification (note all that apply or n/a): CEAP - Clinical class Right Left C0 - No visible or palpable signs of venous disease C1 - Spider telangiectasias or reticular veins C2 - Varicose veins >3-4 mm C3 - Edema C4a - Hyperpigmentation or erythematous dermatitis 4a C4b - Lipodermatosclerosis or atrophie gorge C5 - Healed venous ulcer C6 - Active venous ulcer 6 S or A - Symptomatic, i.e. ache, pain, tightness, skin irritation, heaviness, muscle cramps, other complaints attributable to venous dysfunction vs. asymptomatic. S Wound Assessment Wound 12/04/23 1 Traumatic Calf Posterior;Left;Lower (Active) Wound Image 02/05/24815 Site Assessment Red;Moist 02/05/24815 Melissa-wound Assessment Fragile 02/05/24815 Shape Blocked 02/05/24815 Wound Length (cm) 15 cm 02/05/24815 Wound Width (cm) 17 cm 02/05/24815 Wound Surface Area (cm^2) 255 cm^2 02/05/24815 Wound Depth (cm) 0.1 cm 02/05/24815 Wound Volume (cm^3) 25.5 cm^3 02/05/24 08 Change in Wound Size % -3327.42 02/05/24815 Drainage Description Serous 02/05/24815 Drainage Amount Small 02/05/24815 Treatments Cleansed with;Wound cleanser;Soak with;Vashe/Hypochlorous Acid 02/05/24815 Debridement Performed? N 02/05/24815 Dressing Type Abdominal dressing;Gauze Rolled/Kerlix;Xeroform 02/05/24815 Dressing Changed Changed 02/05/24815 Dressing Status Clean;Dry;Intact 02/05/24815 Assessment/Plan/Education: 1. Venous stasis ulcer of left ankle limited to breakdown of skin with varicose veins ([facility]) 2. Edema of left lower leg Wash mild soap and water Apply gentamicin to open wound Cover with Xeroform gauze Cover with ABD pad Secure with roll gauze Medium compression Tubigrip Avoid prolonged leg dependency. Follow with vascular as scheduled Wash legs and feet every day, apply moisturizing lotion at night, avoid lotion between the toes. Raise feet above the level of the heart 10-15 min several times daily. Follow a low sodium diet. Wear compression stockings as prescribed. Patient has compression stockings at home Calf pump exercises daily. Patient instructed in Other: traumatic wounds care to left ankle region. 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 compliance long-term goal: wound closure Patient verbalize ability to perform wound care. Follow up in wound clinic in 2 weeks for provider evaluation Instructed to contact wound clinic, PCP or ER should symptoms worsen. The patient was taught to watch for S/S of infection (redness, pus, pain, increased swelling, chills or fever) and to call the PCP or wound care clinic if such occurs. The patient was educated on offloading the area by avoiding direct pressure to the wound bed. Education as well as the pathophysiology of the disease process was provided on infection, edema, necrotic tissue and its relationship tononhealing wounds. Education was also provided on treatment plan. Patient verbalized understanding. Total time spent was 22 minutes: Preparing to see the patient (e.g., review of tests) Obtaining and/or reviewing separately obtained history Performing a medically appropriate examination and/or evaluation Counseling and educating the patient/family/caregiver Ordering medications, tests, or procedures Documenting clinical information in the electronic or other health record - CATHERINE AYOUB APRN-SHARLENE 02/05/24 9:58 AM Catherine Ayoub APRN, SHARLENE, CWS, LUIS F [facility]: [phone] Catherine Ayoub APRN-HSARLENE 12/04/23 1106 Catherine Ayoub, FIRE PROTECTION EQUIPMENT TECHNICIAN-POURED PIPE MAKER 12/18/23 1020 Catherine Acuna [place], FIRE PROTECTION EQUIPMENT TECHNICIAN-POURED PIPE MAKER 12/18/23 1158 Catherine Acuna Anitra, FIRE PROTECTION EQUIPMENT TECHNICIAN-POURED PIPE MAKER 12/25/23 1016 Catherine Ayoub, FIRE PROTECTION EQUIPMENT TECHNICIAN-POURED PIPE MAKER 01/03/24 1012 Catherine Acuna Antira, FIRE PROTECTION EQUIPMENT TECHNICIAN-POURED PIPE MAKER 01/10/24 0929 Catherine Acuna Anitra, FIRE PROTECTION EQUIPMENT TECHNICIAN-POURED PIPE MAKER 01/22/24 0927 Catherine Acuna Anitra, FIRE PROTECTION EQUIPMENT TECHNICIAN-POURED PIPE MAKER 02/05/24 1005 Electronically signed by Catherine Acuna Anitra FIRE PROTECTION EQUIPMENT TECHNICIAN-[facility] at 02/05/2024 10:05 AM EDT documented in this encounter[facility] Instructions* Patient Instructions* Clare Mckeon RN - 02/05/2024 8:00 AM EDT Venous insufficiency testing completed 12/26/23 Steroid ointment applied today 01-22-24 Wound Management Treatment Plan Wound Location(s): left posterior calf HOW TO CARE FOR YOUR WOUND The following should be performed Daily and as needed. STEP 1: Cleanse wound with Soap and water, rinse well, and pat dry. STEP 2: Apply gentamicin STEP 3: Apply xeroform to wound bed STEP 4: Cover with ABD dressing STEP 5: Wrap with roll gauze STEP 6: Secure with double layer tubi agricultural produce commission agent Moisturize all dry and intact skin with Eucerin cream or Vaseline daily ACTIVITY: Avoid direct pressure to wound(s) at all times NUTRITION: High protein diet SKIN CARE: Moisturize all dry and intact skin with Eucerin cream or Vaseline daily SWELLING CONTROL: Elevate legs above the heart at least 3 times a day for 10-15 minutes ITEMS TO FOLLOW UP ON: VASCULAR REFERRAL SENT (Call within the week if you don't hear from them) Venous testing ordered 12-18-23 Length Width Depth Wound 12/04/23 1 Traumatic Calf Posterior;Left;Lower-Wound Length (cm): 15 cm Wound 12/04/23 1 Traumatic Calf Posterior;Left;Lower-Wound Width (cm): 17 cm Wound 12/04/23 1 Traumatic Calf Posterior;Left;Lower-Wound Depth (cm): 0.1 cm Wound drainage Type Description small Serosanginous yellow documented in this encounterSelect [facility] History of Present illness Narrative* Lan Cho MD - 02/03/2024 10:00 AM EDT Images from the original note were not included. [facility] [place] [address] [facility] [id number] Subjective: Patient ID: Rebeca Nicole is a 73 y.o. male. Chief Complaint Chief Complaint Patient presents with Varicose Veins New patient-testing done- goes to wound care for wound on left ankle History of Present Illness: This is a 73 year old male who presents to the office today with history of non- healing venous ulcer in the left lower extremity. He states wound has been present for about five months now. He statesoriginal wound formed after he dropped a piece of wood on his ankle. He is currently receiving carethrough the wound care clinic in [place]. He tried Unna boots twice with no improvement, now is using gentamicin cream and tubigrips for compression. He has been using compression since he started with wound care on 12/18/23. He reports the ulcer is slowly healing. He states he notices significant drainage from the ankle although this has decreased over the last few weeks. He reports chronic edemaand aching/heavy pain as well as discoloration in the left leg. No prior history of DVT. 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, bilateral Foot drop, right Foot drop, left Psoas tendonitis of left side Benign prostatic hyperplasia with lower urinary tract symptoms GERD (gastroesophageal reflux disease) Lumbar spondylosis Obesity ALEXANDRA (obstructive sleep apnea) Venous stasis ulcer of left ankle limited to breakdown of skin ([facility] Current Outpatient Medications: gentamicin (GARAMYCIN) 0.1 % ointment, Apply topically once daily, Disp: 15 g, Rfl: 0 melatonin 5 mg tablet,chewable, Chew and swallow., Disp: , Rfl: omeprazole (PriLOSEC) 10 mg capsule, Take 1 capsule (10 mg total) by mouth every morning before breakfast., Disp: , Rfl: Past Medical History: Diagnosis Date Arthritis Falling 2 years ago spine was twisted 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 No pertinent family history. Social History Socioeconomic History Marital status: Spouse name: Not on file Number of children: Not on file Years of education: Not on file Highest education level: Not on file Occupational History Not on file Tobacco Use Smoking status: Former Smokeless tobacco: Never Substance and Sexual Activity Alcohol use: Never Drug use: Never Sexual activity: Not on file Other Topics Concern Not on file Social History Narrative Not on file Social Drivers of Health Financial Resource Strain: Not on file Food Insecurity: No Food Insecurity (01/15/2024) Hunger Screening Food Insecurity - Worry: Never True Food Insecurity - Inability: Never True Transportation Needs: Not on file Physical Activity: Not on file Stress: Not on file Social Connections: Not on file Interpersonal Safety: Not on file Housing Instability: Not on file Allergies Allergen Reactions Doxycycline Hives Hives Sulfamethoxazole-Trimethoprim Rash Rash The following portions of the patient's history were reviewed and updated as appropriate: allergies, current medications, past family history, past medical history, past social history, past surgicalhistory and problem list. Review of Systems: Review of Systems Constitutional: Negative. HENT: Negative. Eyes: Negative. Respiratory: Negative. Cardiovascular: Positive for leg swelling. Gastrointestinal: Negative. Endocrine: Negative. Genitourinary: Negative. Musculoskeletal: Negative. Skin: Positive for color change and wound. Allergic/Immunologic: Negative. Neurological: Negative. Hematological: Negative. Psychiatric/Behavioral: Negative. Objective: Vitals BP 126/84 Pulse 79 Wt (!) 147 kg (324 lb) BMI 37.44 kg/m Physical Exam Physical Exam Vitals and nursing note reviewed. Constitutional: Appearance: He is well-developed. HENT: Head: Normocephalic and atraumatic. Nose: Nose normal. Mouth/Throat: Mouth: Mucous membranes are moist. Pharynx: Oropharynx is clear. Eyes: Conjunctiva/sclera: Conjunctivae normal. Cardiovascular: Rate and Rhythm: Normal rate and regular rhythm. Pulmonary: Effort: Pulmonary effort is normal. Abdominal: Palpations: Abdomen is soft. Musculoskeletal: General: Normal range of motion. Cervical back: Normal range of motion. Right lower leg: Edema present. Left lower leg: Edema present. Skin: General: Skin is warm and dry. Capillary Refill: Capillary refill takes less than 2 seconds. Neurological: Mental Status: He is alert and oriented to person, place, and time. Mild edema bilaterally but L >> R Significant hemosiderin staining bilaterally Left medial ankle with venous stasis ulcer, superficial, no infection. Total area of ulcer is around 10 cm2 Varicose veins left posterior calf CEAP classification (note all that apply or n/a): C4a, C6 CEAP - Clinical class Right Left C0 - No visible or palpable signs of venous disease C1 - Spider telangiectasias or reticular veins C2 - Varicose veins >3-4 mm x C3 - Edema x x C4a - Hyperpigmentation or erythematous dermatitis x x C4b - Lipodermatosclerosis or atrophie gorge C5 - Healed venous ulcer C6 - Active venous ulcer x S or A - Symptomatic, i.e. ache, pain, tightness, skin irritation, heaviness, muscle cramps, other complaints attributable to venous dysfunction vs. asymptomatic. A S Venous clinical severity score (VCSS)--none: 0, mild: 1, moderate: 2, severe: 3. Right Left Pain (0- none, 1- occasional pain, not restricting activity, 2- daily pain, interferes with but doesn't prevent regular activity, 3- daily pain, limits most regular daily activity. 0 1 Varicose veins (>/= 3 mm) 0- none, 1 - few scattered, isolated clusters, gannon phlebectatica, 2- confined to calf or thigh, 3- involves calf and thigh. 0 2 Venous edema 0- none, 1- limited to foot and ankle, 2- extends above ankle but below knee, 3- extends to knee and above. 1 2 Skin pigmentation (NOT localized over vv) 0- none, 1- limited to perimalleolar area, 2- diffuse over lower third of calf, 3- wider distribution above lower third of calf. 3 3 Inflammation (i.e. erythema, cellulitis, venous eczema, dermatitis) 0- none, 1- limited to perimalleolar area, 2- diffuse over lower third of calf, 3- wider distribution above lower third of calf 1 2 Induration (i.e. fibrosis, atrophie gorge, LDS) 0- none, 1- limited to perimalleolar area, 2- diffuse over lower third of calf, 3- wider distribution above lower third of calf. 0 0 Active ulcer number- 0- none, 1, 2, >/= 3 Active ulcer duration- < 3 mo (1), > 3 mo < 1 y (2), not healed > 1 y (3) Active ulcer size- diameter < 2 cm (1) , 2-6 cm (2), > 6 cm (3) 0 1 Use of compression therapy 0- not used, 1- intermittent use, 2- wears most days, 3- full compliance 3 3 VCSS summary: right le, left le. Studies Reviewed Venous duplex scan No results found for: DDIMER No results found for: GLU , CALCIUM , SODIUM , K , CO2 , BUN , CREATININE No results found for: WBC , HGB , HCT , MCV , PLT Assesment: Rebeca was seen today for varicose veins. Diagnoses and all orders for this visit: Venous stasis ulcer of left ankle limited to breakdown of skin with varicose veins [place] [place] [facility] [place], [place] Plan: Plan The patient presents to the office with chronic, non-healing venous ulcer in the left lower extremity with delayed wound healing despite wound care and use of compression therapy. The patient had a venous insufficiency scan which showed multilevel reflux of the left great saphenous vein, the left popliteal vein, and a wholesale representative vein in the left calf. I have reviewed testing with the patient and believe he is a good candidate for RFA ablation of theleft great saphenous vein. I explained to the patient that the purpose of the procedure is to help his left leg venous ulcer to heal and to prevent future ulcers from occurring. I explained he does have reflux in a wholesale representative vein in the left calf which may also need to be addressed in the future. I also explained he does have reflux in the left popliteal vein which may continue to cause edema. Ireviewed the procedure with the patient. I explained the risks of the procedure including DVT, bleeding, infection, skin discoloration, and nerve injury. The patient's questions were answered to his s atisfaction. The patient elected to proceed with left GSV RFA ablation. [facility] once he is approved by insurance. This note was created with the assistance of a speech recognition program. While intending to generate a timely document that accurately reflects the content of the visit, no guarantee can be provided that every grammatical or spelling mistake has been or will be identified or corrected. Thank you for your understanding. Lan Cho MD documented in this encounterSelect [facility] History of Present illness Narrative* Catherine Ayoub, FIRE PROTECTION EQUIPMENT TECHNICIAN-POURED PIPE MAKER - 01/22/2024 8:00 AM EDT Images from the original note were not included. Wound Care Progress Note Patient: Rebeca Nicole Date of : 1950 Chief Compliant: Left leg ulceration, follow up SUBJECTIVE/HPI: Rebeca is a 73 y.o. male who presents to [facility] for evaluation of 1 ulcer(s) on the left lateral and posterior malleolus. Patient established with wound clinic on 11/26/2023. Current daily wound care includes: Gentamicin, Xeroform, ABD pad, roll gauze, medium compression Tubigrip.. Patient reports he has elevating his legs periodically throughout the day. Patient is declining offer for UNNA boot reapplication due to need for a shower. Patient has appointment with vascular 02/03/2024. Patient reports he dropped a flower pot on the right lower ankle region mid October,. Patient hasbeen following with podiatry for the wounds. Reports he has had Unna boots x2 without success. Patient's chart was reviewed for all available supporting documentation, laboratory results and radiographic examination including external notes. Measurable wound changes: Decreased wound measurement, minimal drainage 1.0 cm increase in LLE calf circumference. Patient accompanied by: self, patient ambulates with a cane Nutritional screen shows patient does not take in three servings of protein per day. Patient does deny fever, chills, sweats, or other signs of infection. Prescribed antibiotics: none Today's reported Blood Sugar:N/A No results found for: HGBA1C Tobacco use: former smoker Contributing comorbid conditions: Lumbar spondylosis, bilateral foot drop, history of West Nile virus. Review of Venous Insufficiency Testing 12/27/2023 Interpretation Summary Right: Common femoral vein is compressible with spontaneous phasic spectral Doppler waveforms. Left: Limited visualization of veins in the calf due to edema. Remaining deep visualized venous segments are compressible with spontaneous phasic spectral Doppler waveforms. Superficial veins are compressible. Saphenopopliteal junction was not visualized, intersaphenous vein was noted. Venous reflux time >1000 ms is noted in the femoral and popliteal vein. Saphenofemoral junction reflux >500 ms with multilevel great saphenous vein reflux. Video Engineer vein with 4089 ms reflux time and 3.6 mm diameter noted in the proximal medial calf. General: This examination was performed in the upright position. Conclusions: RIGHT: No evidence of right common femoral vein deep vein thrombosis or significant reflux.LEFT: No evidence of deep or superficial vein thrombosis of the lower extremity. Femoropopliteal deep vein reflux. Video Engineer vein reflux. Saphenofemoral junction and great saphenous superficial vein reflux. 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, bilateral Foot drop, right Foot drop, left Psoas tendonitis of left side Benign prostatic hyperplasia with lower urinary tract symptoms GERD (gastroesophageal reflux disease) Lumbar spondylosis Obesity ALEXANDRA (obstructive sleep apnea) Venous stasis ulcer of left ankle limited to breakdown of skin ([facility] Past Medical History: Diagnosis Date Arthritis Falling 2 years ago spine was twisted 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 omeprazole (PriLOSEC) 10 mg capsule Take 1 capsule (10 mg total) by mouth every morning before breakfast. Current Facility-Administered Medications Medication Dose Route Frequency Provider Last Rate Last Admin triamcinolone (KENALOG) 0.1 % cream 1 Application 1 Application topical PRN Catherine Ayoub APRN-POURED PIPE MAKER Allergies Allergen Reactions Doxycycline Hives Hives Sulfamethoxazole-Trimethoprim Rash Rash The following portions of the patient's history were reviewed and updated as appropriate: allergies, current medications, past family history, past medical history, past social history, past surgicalhistory, problem list, and medication reconciliation was completed including current medication andpost discharge medication. Pain Scale: Pain Scale 0/10: 3 Review of Systems Constitutional: Negative. Negative for activity change, appetite change and fever. HENT: Negative. Negative for trouble swallowing. Respiratory: Positive for apnea (ALEXANDRA). Negative for cough, shortness of breath and wheezing. Cardiovascular: Negative. Negative for chest pain, palpitations and leg swelling. Gastrointestinal: Negative. Negative for abdominal distention, nausea and vomiting. Genitourinary: Negative. Negative for dysuria, frequency and urgency. Musculoskeletal: Positive for back pain and gait problem. Negative for neck stiffness. Skin: Positive for color change and wound. Neurological: Positive for dizziness. Negative for numbness and headaches. Objective: Vitals: 01/22/24 0700 BP: (!) 157/92 Pulse: 74 Temp: 36.3 C (97.3 F) Physical Exam Vitals and nursing note reviewed. Constitutional: Appearance: He is well-developed. HENT: Head: Normocephalic and atraumatic. Cardiovascular: Rate and Rhythm: Normal rate and regular rhythm. Pulses: Dorsalis pedis pulses are 2+ on the right side and 2+ on the left side. Posterior tibial pulses are 2+ on the right side and 2+ on the left side. Heart sounds: Normal heart sounds. No murmur heard. No gallop. Comments: Left pedal pulses strongly palpable Pulmonary: Effort: Pulmonary effort is normal. Breath sounds: Normal breath sounds. No wheezing. Abdominal: General: Bowel sounds are normal. Palpations: Abdomen is soft. Musculoskeletal: General: Normal range of motion. Cervical back: Normal range of motion. Right foot: Foot drop present. Left foot: Foot drop present. Feet: Comments: Left leg hemosiderin staining and hyperpigmentation 1+ soft pitting edema Diminished hair growth Warm to touch No visible varicose veins Skin: General: Skin is warm and dry. Neurological: Mental Status: He is alert and oriented to person, place, and time. CEAP classification (note all that apply or n/a): CEAP - Clinical class Right Left C0 - No visible or palpable signs of venous disease C1 - Spider telangiectasias or reticular veins C2 - Varicose veins >3-4 mm C3 - Edema C4a - Hyperpigmentation or erythematous dermatitis 4a C4b - Lipodermatosclerosis or atrophie gorge C5 - Healed venous ulcer C6 - Active venous ulcer 6 S or A - Symptomatic, i.e. ache, pain, tightness, skin irritation, heaviness, muscle cramps, other complaints attributable to venous dysfunction vs. asymptomatic. S Wound Assessment Wound 12/04/23 1 Traumatic Calf Posterior;Left;Lower (Active) Wound Image Triamcinolone 0.1% applied in wound clinic 01/22/24799 Site Assessment Red;Moist 01/22/24824 Melissa-wound Assessment Fragile;Dry 01/22/24824 Shape blocked 01/22/24824 Wound Length (cm) 5 cm 01/22/24799 Wound Width (cm) 4 cm 01/22/24799 Wound Surface Area (cm^2) 20 cm^2 01/22/24799 Wound Depth (cm) 0.1 cm 01/22/24799 Wound Volume (cm^3) 2 cm^3 01/22/24799 Change in Wound Size % -168.82 01/22/24799 Drainage Description Serous 01/22/24824 Drainage Amount Small 01/22/24824 Debridement Performed? N 01/22/24824 Wound Bed Granulation (%) 100% 01/22/24799 Assessment/Plan/Education: 1. Venous stasis ulcer of left ankle limited to breakdown of skin with varicose veins (CMS-HCC) Wash mild soap and water Apply gentamicin to open wound Cover with Xeroform gauze Cover with ABD pad Secure with roll gauze Medium compression Tubigrip Avoid prolonged leg dependency. Wash legs and feet every day, apply moisturizing lotion at night, avoid lotion between the toes. Raise feet above the level of the heart 10-15 min several times daily. Follow a low sodium diet. Wear compression stockings as prescribed. Patient has compression stockings at home Calf pump exercises daily. Patient instructed in Other: traumatic wounds care to left ankle region. 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 Follow up in wound clinic in 2 weeks for provider evaluation Instructed to contact wound clinic, PCP or ER should symptoms worsen. The patient was taught to watch for S/S of infection (redness, pus, pain, increased swelling, chills or fever) and to call the PCP or wound care clinic if such occurs. The patient was educated on offloading the area by avoiding direct pressure to the wound bed. Education as well as the pathophysiology of the disease process was provided on infection, edema, necrotic tissue and its relationship tononhealing wounds. Education was also provided on treatment plan. Patient verbalized understanding. Total time spent was 20 minutes: Preparing to see the patient (e.g., review of tests) Obtaining and/or reviewing separately obtained history Performing a medically appropriate examination and/or evaluation Counseling and educating the patient/family/caregiver Ordering medications, tests, or procedures Documenting clinical information in the electronic or other health record - EMILY PROCTOR 01/22/24 8:34 AM Catherine Ayoub APRN, SHARLENE, CWS, LUIS F [facility]: [phone] EMILY Proctor 12/04/23 1106 EMILY Proctor 12/18/23 1020 EMILY Proctor 12/18/23 1158 EMILY Proctor 12/25/23 1016 EMILY Proctor 01/03/24 1012 EMILY Proctor 01/10/24 0929 EMILY Proctor 01/22/24 0927 documented in this encounterSelect [facility] Instructions* Patient Instructions* Lamar Bee RN - 01/22/2024 8:00 AM EDT Venous insufficiency testing completed 12/26/23 Steroid ointment applied today 01-22-24 Wound Management Treatment Plan Wound Location(s): left posterior calf HOW TO CARE FOR YOUR WOUND The following should be performed Daily and as needed. STEP 1: Cleanse wound with Soap and water, rinse well, and pat dry. STEP 2: Apply gentamicin STEP 3: Apply xeroform to wound bed STEP 4: Cover with ABD dressing STEP 5: Wrap with roll gauze STEP 6: Secure with double layer tubi agricultural produce commission agent Moisturize all dry and intact skin with Eucerin cream or Vaseline daily ACTIVITY: Avoid direct pressure to wound(s) at all times NUTRITION: High protein diet SKIN CARE: Moisturize all dry and intact skin with Eucerin cream or Vaseline daily SWELLING CONTROL: Elevate legs above the heart at least 3 times a day for 10-15 minutes ITEMS TO FOLLOW UP ON: VASCULAR REFERRAL SENT (Call within the week if you don't hear from them) Venous testing ordered 12-18-23 Length Width Depth Wound drainage Type Description small Serosanginous yellow documented in this encounterSelect [facility] [place] History of Present illness Narrative* Sheyla Way, FIRE PROTECTION EQUIPMENT TECHNICIAN-POURED PIPE MAKER - 01/15/2024 8:00 AM EDT Images from the original note were not included. Wound Care Progress Note Patient: Rebeca Nicole Date of : 1950 Chief Compliant: Left leg ulceration, follow up SUBJECTIVE/HPI: Rebeca is a 73 y.o. male who presents to [facility] for evaluation of 1 ulcer(s) on the left lateral and posterior malleolus. Patient established with wound clinic on 11/26/2023. Current daily wound care includes: Gentamicin, Xeroform, ABD pad, roll gauze, medium compression Tubigrip. Patient reports he has elevating his legs periodically throughout the day. Patient is declining offer for UNNA boot reapplication due to need for a shower. Patient has appointment with vascular 02/03/2024. Patient reports he dropped a flower pot on the right lower ankle region mid October 2023. Patient has been following with podiatry for the wounds. Reports he has had Unna boots x2 without success. Patient's chart was reviewed for all available supporting documentation, laboratory results and radiographic examination including external notes. Measurable wound changes: Decreased wound measured 1.0 cm increase in LLE calf circumference. Patient accompanied by: family, patient ambulates with a cane Nutritional screen shows patient does not take in three servings of protein per day. Patient does deny fever, chills, sweats, or other signs of infection. Prescribed antibiotics: none Today's reported Blood Sugar:N/A No results found for: HGBA1C Tobacco use: former smoker Contributing comorbid conditions: Lumbar spondylosis, bilateral foot drop, history of West Nile virus. Review of Venous Insufficiency Testing 12/27/2023 Interpretation Summary Right: Common femoral vein is compressible with spontaneous phasic spectral Doppler waveforms. Left: Limited visualization of veins in the calf due to edema. Remaining deep visualized venous segments are compressible with spontaneous phasic spectral Doppler waveforms. Superficial veins are compressible. Saphenopopliteal junction was not visualized, intersaphenous vein was noted. Venous reflux time >1000 ms is noted in the femoral and popliteal vein. Saphenofemoral junction reflux >500 ms with multilevel great saphenous vein reflux. Video Engineer vein with 4089 ms reflux time and 3.6 mm diameter noted in the proximal medial calf. General: This examination was performed in the upright position. Conclusions: RIGHT: No evidence of right common femoral vein deep vein thrombosis or significant reflux.LEFT: No evidence of deep or superficial vein thrombosis of the lower extremity. Femoropopliteal deep vein reflux. Video Engineer vein reflux. Saphenofemoral junction and great saphenous superficial vein reflux. 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 omeprazole (PriLOSEC) 10 mg capsule Take 1 capsule (10 mg total) by mouth every morning before breakfast. No current facility-administered medications for this visit. Allergies Allergen Reactions Doxycycline Hives Hives Sulfamethoxazole-Trimethoprim Rash Rash The following portions of the patient's history were reviewed and updated as appropriate: allergies, current medications, past family history, past medical history, past social history, past surgicalhistory, problem list, and medication reconciliation was completed including current medication andpost discharge medication. Pain Scale: Pain Scale 0/10: 3 Review of Systems Constitutional: Negative for activity change, appetite change and fever. HENT: Negative for ear pain and trouble swallowing. Eyes: Negative for pain. Respiratory: Positive for apnea (ALEXANDRA). Negative for cough, shortness of breath and wheezing. Cardiovascular: Positive for leg swelling. Negative for chest pain and palpitations. Gastrointestinal: Negative for abdominal distention, nausea and vomiting. Genitourinary: Negative for dysuria, frequency and urgency. Musculoskeletal: Positive for back pain and gait problem. Negative for neck stiffness. Skin: Positive for color change and wound. Neurological: Positive for dizziness. Negative for numbness and headaches. Psychiatric/Behavioral: Negative for confusion. Objective: Vitals: 01/15/24 0806 BP: 129/88 Pulse: 90 Resp: 16 Temp: 36.5 C (97.7 F) Physical Exam Vitals and nursing note reviewed. Constitutional: Appearance: He is well-developed. HENT: Head: Normocephalic and atraumatic. Right Ear: External ear normal. Left Ear: External ear normal. Nose: Nose normal. Mouth/Throat: Mouth: Mucous membranes are dry. Pharynx: Oropharynx is clear. Eyes: General: Right eye: No discharge. Left eye: No discharge. Pupils: Pupils are equal, round, and reactive to light. Cardiovascular: Rate and Rhythm: Normal rate and regular rhythm. Pulses: Dorsalis pedis pulses are 2+ on the right side and 2+ on the left side. Posterior tibial pulses are 2+ on the right side and 2+ on the left side. Heart sounds: Normal heart sounds. No murmur heard. No gallop. Comments: Left pedal pulses strongly palpable Pulmonary: Effort: Pulmonary effort is normal. Breath sounds: Normal breath sounds. No wheezing. Abdominal: General: Bowel sounds are normal. Palpations: Abdomen is soft. Genitourinary: Comments: deferred Musculoskeletal: General: Normal range of motion. Cervical back: Normal range of motion and neck supple. Right lower le+ Edema present. Left lower le+ Edema present. Right foot: Foot drop present. Left foot: Foot drop present. Feet: Comments: Left leg hemosiderin staining and hyperpigmentation 1+ soft pitting edema Diminished hair growth Warm to touch No visible varicose veins Skin: General: Skin is warm and dry. Capillary Refill: Capillary refill takes less than 2 seconds. Neurological: General: No focal deficit present. Mental Status: He is alert and oriented to person, place, and time. Psychiatric: Mood and Affect: Mood normal. Behavior: Behavior normal. CEAP classification (note all that apply or n/a): CEAP - Clinical class Right Left C0 - No visible or palpable signs of venous disease C1 - Spider telangiectasias or reticular veins C2 - Varicose veins >3-4 mm C3 - Edema C4a - Hyperpigmentation or erythematous dermatitis 4a C4b - Lipodermatosclerosis or atrophie gorge C5 - Healed venous ulcer C6 - Active venous ulcer 6 S or A - Symptomatic, i.e. ache, pain, tightness, skin irritation, heaviness, muscle cramps, other complaints attributable to venous dysfunction vs. asymptomatic. S Wound Assessment Wound 12/04/23 1 Traumatic Calf Posterior;Left;Lower (Active) Wound Image 01/15/24810 Site Assessment Red;Moist 01/15/24810 Melissa-wound Assessment Fragile 01/15/24810 Shape Blocked 01/15/24810 Wound Length (cm) 7 cm 01/15/24810 Wound Width (cm) 10.5 cm 01/15/24810 Wound Surface Area (cm^2) 73.5 cm^2 01/15/24810 Wound Depth (cm) 0.1 cm 01/15/24810 Wound Volume (cm^3) 7.35 cm^3 01/15/24810 Change in Wound Size % -887.9 01/15/24810 Drainage Description Serous 01/15/24810 Drainage Amount Small 01/15/24810 Treatments Cleansed with;Soak with;Vashe/Hypochlorous Acid 01/15/24810 Debridement Performed? N 01/15/24810 Dressing Type Xeroform;Abdominal dressing 01/15/24810 Dressing Changed Changed 01/15/24810 Dressing Status Clean;Dry;Intact 01/15/24810 Wound Bed Granulation (%) 75% to 100% 01/15/24810 Wound Bed Slough (%) < 25% 01/15/24810 Assessment/Plan/Education: 1. Venous stasis ulcer of left ankle limited to breakdown of skin with varicose veins (CMS-HCC) - Xeroform 4x4 Wash mild soap and water Apply gentamicin to open wound Cover with Xeroform gauze Cover with ABD pad Apply eucerin and or vaseline to dry stasis to periwound including foot and calf Secure with roll gauze Medium compression Tubigrip Avoid prolonged leg dependency. Wash legs and feet every day, apply moisturizing lotion at night, avoid lotion between the toes. Raise feet above the level of the heart 10-15 min several times daily. Follow a low sodium diet. Wear compression stockings as prescribed. Patient has compression stockings at home Calf pump exercises daily. Patient instructed in Other: traumatic wounds care to left ankle region. 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 Follow up in wound clinic in 1 week for provider evaluation Keep appt with Vascular surgery 02/03/24 as scheduled Instructed to contact wound clinic, PCP or ER should symptoms worsen. The patient was taught to watch for S/S of infection (redness, pus, pain, increased swelling, chills or fever) and to call the PCP or wound care clinic if such occurs. The patient was educated on offloading the area by avoiding direct pressure to the wound bed. Education as well as the pathophysiology of the disease process was provided on infection, edema, necrotic tissue and its relationship tononhealing wounds. Education was also provided on treatment plan. Patient verbalized understanding. Total time spent was 20 minutes: Preparing to see the patient (e.g., review of tests) Obtaining and/or reviewing separately obtained history Performing a medically appropriate examination and/or evaluation Counseling and educating the patient/family/caregiver Ordering medications, tests, or procedures Documenting clinical information in the electronic or other health record EMILY PARHAM 01/15/24 8:30 AM [facility] [phone] EMILY Parham 01/15/24 0903 documented in this encounterR[facility] CenterND[facility] [id number] Instructions* Patient Instructions* Bianca Berger RN - 01/15/2024 8:00 AM EDT Venous insufficiency testing completed 12/26/23 Wound Management Treatment Plan Wound Location(s): left posterior calf HOW TO CARE FOR YOUR WOUND The following should be performed Daily and as needed. STEP 1: Cleanse wound with Soap and water, rinse well, and pat dry. STEP 2: Apply gentamicin STEP 3: Apply xeroform to wound bed STEP 4: Cover with ABD dressing STEP 5: Wrap with roll gauze STEP 6: Secure with double layer tubi agricultural produce commission agent Moisturize all dry and intact skin with Eucerin cream or Vaseline daily ACTIVITY: Avoid direct pressure to wound(s) at all times NUTRITION: High protein diet SKIN CARE: Moisturize all dry and intact skin with Eucerin cream or Vaseline daily SWELLING CONTROL: Elevate legs above the heart at least 3 times a day for 10-15 minutes ITEMS TO FOLLOW UP ON: VASCULAR REFERRAL SENT (Call within the week if you don't hear from them) Venous testing ordered 12-18-23 Length Width Depth Wound 12/04/23 1 Traumatic Calf Posterior;Left;Lower-Wound Length (cm): 7 cm Wound 12/04/23 1 Traumatic Calf Posterior;Left;Lower-Wound Width (cm): 10.5 cm Wound 12/04/23 1 Traumatic Calf Posterior;Left;Lower-Wound Depth (cm): 0.1 cm Wound drainage Type Description small Serosanginous yellow [facility] History of Present illness Narrative* Catherine Kalpana Ayoub, FIRE PROTECTION EQUIPMENT TECHNICIAN-POURED PIPE MAKER - 01/10/2024 8:20 AM EDT Images from the original note were not included. Wound Care Progress Note Patient: Rebeca Nicole Date of : 1950 Chief Compliant: Left leg ulceration, follow up SUBJECTIVE/HPI: Rebeca is a 73 y.o. male who presents to [facility] for evaluation of 1 ulcer(s) on the left lateral and posterior malleolus. Patient established with wound clinic on 11/26/2023. Current daily wound care includes: Gentamicin, Xeroform, ABD pad, roll gauze, medium compression Tubigrip.. Patient reports he has elevating his legs periodically throughout the day. Patient is declining offer for UNNA boot reapplication due to need for a shower. Patient has appointment with vascular 02/03/2024. Patient reports he dropped a flower pot on the right lower ankle region mid October,. Patient hasbeen following with podiatry for the wounds. Reports he has had Unna boots x2 without success. Patient's chart was reviewed for all available supporting documentation, laboratory results and radiographic examination including external notes. Measurable wound changes: Decreased wound measured 2.0 cm increase in LLE calf circumference. Patient accompanied by: self, patient ambulates with a cane Nutritional screen shows patient does not take in three servings of protein per day. Patient does deny fever, chills, sweats, or other signs of infection. Prescribed antibiotics: none Today's reported Blood Sugar:N/A No results found for: HGBA1C Tobacco use: former smoker Contributing comorbid conditions: Lumbar spondylosis, bilateral foot drop, history of West Nile virus. Review of Venous Insufficiency Testing 12/27/2023 Interpretation Summary Right: Common femoral vein is compressible with spontaneous phasic spectral Doppler waveforms. Left: Limited visualization of veins in the calf due to edema. Remaining deep visualized venous segments are compressible with spontaneous phasic spectral Doppler waveforms. Superficial veins are compressible. Saphenopopliteal junction was not visualized, intersaphenous vein was noted. Venous reflux time >1000 ms is noted in the femoral and popliteal vein. Saphenofemoral junction reflux >500 ms with multilevel great saphenous vein reflux. Video Engineer vein with 4089 ms reflux time and 3.6 mm diameter noted in the proximal medial calf. General: This examination was performed in the upright position. Conclusions: RIGHT: No evidence of right common femoral vein deep vein thrombosis or significant reflux.LEFT: No evidence of deep or superficial vein thrombosis of the lower extremity. Femoropopliteal deep vein reflux. Video Engineer vein reflux. Saphenofemoral junction and great saphenous superficial vein reflux. 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, bilateral Foot drop, right Foot drop, left Psoas tendonitis of left side Benign prostatic hyperplasia with lower urinary tract symptoms GERD (gastroesophageal reflux disease) Lumbar spondylosis Obesity ALEXANDRA (obstructive sleep apnea) Venous stasis ulcer of left ankle limited to breakdown of skin ([facility] Past Medical History: Diagnosis Date Arthritis Falling 2 years ago spine was twisted 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 omeprazole (PriLOSEC) 10 mg capsule Take 1 capsule (10 mg total) by mouth every morning before breakfast. No current facility-administered medications for this visit. Allergies Allergen Reactions Doxycycline Hives Hives Sulfamethoxazole-Trimethoprim Rash Rash The following portions of the patient's history were reviewed and updated as appropriate: allergies, current medications, past family history, past medical history, past social history, past surgicalhistory, problem list, and medication reconciliation was completed including current medication andpost discharge medication. Pain Scale: Pain Scale 0/10: 3 Review of Systems Constitutional: Negative. Negative for activity change, appetite change and fever. HENT: Negative. Negative for trouble swallowing. Respiratory: Positive for apnea (ALEXANDRA). Negative for cough, shortness of breath and wheezing. Cardiovascular: Negative. Negative for chest pain, palpitations and leg swelling. Gastrointestinal: Negative. Negative for abdominal distention, nausea and vomiting. Genitourinary: Negative. Negative for dysuria, frequency and urgency. Musculoskeletal: Positive for back pain and gait problem. Negative for neck stiffness. Skin: Positive for color change and wound. Neurological: Positive for dizziness. Negative for numbness and headaches. Objective: Vitals: 01/10/24 0827 BP: 141/90 Pulse: 86 Temp: 36.2 C (97.2 F) Physical Exam Vitals and nursing note reviewed. Constitutional: Appearance: He is well-developed. HENT: Head: Normocephalic and atraumatic. Cardiovascular: Rate and Rhythm: Normal rate and regular rhythm. Pulses: Dorsalis pedis pulses are 2+ on the right side and 2+ on the left side. Posterior tibial pulses are 2+ on the right side and 2+ on the left side. Heart sounds: Normal heart sounds. No murmur heard. No gallop. Comments: Left pedal pulses strongly palpable Pulmonary: Effort: Pulmonary effort is normal. Breath sounds: Normal breath sounds. No wheezing. Abdominal: General: Bowel sounds are normal. Palpations: Abdomen is soft. Musculoskeletal: General: Normal range of motion. Cervical back: Normal range of motion. Right foot: Foot drop present. Left foot: Foot drop present. Feet: Comments: Left leg hemosiderin staining and hyperpigmentation 1+ soft pitting edema Diminished hair growth Warm to touch No visible varicose veins Skin: General: Skin is warm and dry. Neurological: Mental Status: He is alert and oriented to person, place, and time. CEAP classification (note all that apply or n/a): CEAP - Clinical class Right Left C0 - No visible or palpable signs of venous disease C1 - Spider telangiectasias or reticular veins C2 - Varicose veins >3-4 mm C3 - Edema C4a - Hyperpigmentation or erythematous dermatitis 4a C4b - Lipodermatosclerosis or atrophie gorge C5 - Healed venous ulcer C6 - Active venous ulcer 6 S or A - Symptomatic, i.e. ache, pain, tightness, skin irritation, heaviness, muscle cramps, other complaints attributable to venous dysfunction vs. asymptomatic. S Wound Assessment Wound 12/04/23 1 Traumatic Calf Posterior;Left;Lower (Active) Wound Image 01/10/24836 Site Assessment Red;Moist 01/10/24836 Melissa-wound Assessment Fragile 01/10/24836 Shape Blocked 01/10/24836 Wound Length (cm) 6 cm 01/10/24836 Wound Width (cm) 6 cm 01/10/24836 Wound Surface Area (cm^2) 36 cm^2 01/10/24836 Wound Depth (cm) 0.1 cm 01/10/24836 Wound Volume (cm^3) 3.6 cm^3 01/10/24836 Change in Wound Size % -383.87 01/10/24836 Drainage Description Serosanguineous;Yellow 01/10/24836 Drainage Amount Small 01/10/24836 Debridement Performed? N 01/10/24836 Assessment/Plan/Education: 1. Venous stasis ulcer of left ankle limited to breakdown of skin with varicose veins (CMS-HCC) Wash mild soap and water Apply gentamicin to open wound Cover with Xeroform gauze Cover with ABD pad Secure with roll gauze Medium compression Tubigrip Avoid prolonged leg dependency. Wash legs and feet every day, apply moisturizing lotion at night, avoid lotion between the toes. Raise feet above the level of the heart 10-15 min several times daily. Follow a low sodium diet. Wear compression stockings as prescribed. Patient has compression stockings at home Calf pump exercises daily. Patient instructed in Other: traumatic wounds care to left ankle region. 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 Follow up in wound clinic in 1 week for provider evaluation Instructed to contact wound clinic, PCP or ER should symptoms worsen. The patient was taught to watch for S/S of infection (redness, pus, pain, increased swelling, chills or fever) and to call the PCP or wound care clinic if such occurs. The patient was educated on offloading the area by avoiding direct pressure to the wound bed. Education as well as the pathophysiology of the disease process was provided on infection, edema, necrotic tissue and its relationship tononhealing wounds. Education was also provided on treatment plan. Patient verbalized understanding. Total time spent was 22 minutes: Preparing to see the patient (e.g., review of tests) Obtaining and/or reviewing separately obtained history Performing a medically appropriate examination and/or evaluation Counseling and educating the patient/family/caregiver Ordering medications, tests, or procedures Documenting clinical information in the electronic or other health record - EMILY PROCTOR 01/10/24 9:09 AM Catherine Ayoub APRN, SHARLENE, RENATO, LUIS F [facility]: [phone] EMILY Proctor 12/04/23 1106 EMILY Proctor 12/18/23 1020 EMILY Proctor 12/18/23 1158 EMILY rPoctor 12/25/23 1016 EMILY Proctor 01/03/24 1012 EMILY Proctor 01/10/24 0929 documented in this encounter[facility] [place] Instructions* Patient Instructions* Joycelyn Skaggs RN - 01/10/2024 8:20 AM EDT Venous insufficiency testing completed 12/26/23 Wound Management Treatment Plan Wound Location(s): left posterior calf HOW TO CARE FOR YOUR WOUND The following should be performed Daily and as needed. STEP 1: Cleanse wound with Soap and water, rinse well, and pat dry. STEP 2: Apply gentamicin STEP 3: Apply xeroform to wound bed STEP 4: Cover with ABD dressing STEP 5: Wrap with roll gauze STEP 6: Secure with double layer tubi agricultural produce commission agent ACTIVITY: Avoid direct pressure to wound(s) at all times NUTRITION: High protein diet SKIN CARE: Moisturize all dry and intact skin SWELLING CONTROL: Elevate legs above the heart at least 3 times a day for 10-15 minutes ITEMS TO FOLLOW UP ON: VASCULAR REFERRAL SENT (Call within the week if you don't hear from them) Venous testing ordered 12-18-23 Length Width Depth Wound drainage Type Description small Serosanginous yellow documented in [facility] encounter[facility] [place] History of Present illness Narrative* Catherine Ayoub, LINDY-POURED PIPE MAKER - 01/03/2024 9:30 AM EDT Images from the original note were not included. Wound Care Progress Note Patient: Rebeca Nicole Date of : 1950 Chief Compliant: Left leg ulceration, follow up SUBJECTIVE/HPI: Rebeca is a 73 y.o. male who presents to [facility] for evaluation of 2 ulcer(s) on the left lateral and posterior malleolus. Wound has merged into one wound. Patient established with wound clinic on 11/26/2023. Current daily wound care includes: Calcium alginate, dry max, and Unna boot for compression. Patient reports he has elevating his legs periodically throughout the day. Patient is declining offer for UNNA boot reapplication due to need for a shower. Patient reports he dropped a flower pot on the right lower ankle region mid October,. Patient hasbeen following with podiatry for the wounds. Reports he has had Unna boots x2 without success. Patient's chart was reviewed for all available supporting documentation, laboratory results and radiographic examination including external notes. Measurable wound changes: wound measurement increase due to merging 2 wounds into 1 2.5 cm decrease in LLE calf circumference. Patient accompanied by: self, patient ambulates with a cane Nutritional screen shows patient does not take in three servings of protein per day. Patient does deny fever, chills, sweats, or other signs of infection. Prescribed antibiotics: none Today's reported Blood Sugar:N/A No results found for: HGBA1C Tobacco use: former smoker Contributing comorbid conditions: Lumbar spondylosis, bilateral foot drop, history of West Nile virus. Review of Venous Insufficiency Testing 12/27/2023 Interpretation Summary Right: Common femoral vein is compressible with spontaneous phasic spectral Doppler waveforms. Left: Limited visualization of veins in the calf due to edema. Remaining deep visualized venous segments are compressible with spontaneous phasic spectral Doppler waveforms. Superficial veins are compressible. Saphenopopliteal junction was not visualized, intersaphenous vein was noted. Venous reflux time >1000 ms is noted in the femoral and popliteal vein. Saphenofemoral junction reflux >500 ms with multilevel great saphenous vein reflux. Video Engineer vein with 4089 ms reflux time and 3.6 mm diameter noted in the proximal medial calf. General: This examination was performed in the upright position. Conclusions: RIGHT: No evidence of right common femoral vein deep vein thrombosis or significant reflux.LEFT: No evidence of deep or superficial vein thrombosis of the lower extremity. Femoropopliteal deep vein reflux. Video Engineer vein reflux. Saphenofemoral junction and great saphenous superficial vein reflux. 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, bilateral Foot drop, right Foot drop, left Psoas tendonitis of left side Benign prostatic hyperplasia with lower urinary tract symptoms GERD (gastroesophageal reflux disease) Lumbar spondylosis Obesity ALEXANDRA (obstructive sleep apnea) Venous stasis ulcer of left ankle limited to breakdown of skin ([facility] Past Medical History: Diagnosis Date Arthritis Falling 2 years ago spine was twisted 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 omeprazole (PriLOSEC) 10 mg capsule Take 1 capsule (10 mg total) by mouth every morning before breakfast. No current facility-administered medications for this visit. Allergies Allergen Reactions Doxycycline Hives Hives Sulfamethoxazole-Trimethoprim Rash Rash The following portions of the patient's history were reviewed and updated as appropriate: allergies, current medications, past family history, past medical history, past social history, past surgicalhistory, problem list, and medication reconciliation was completed including current medication andpost discharge medication. Pain Scale: Pain Scale 0/10: 3 Review of Systems Constitutional: Negative. Negative for activity change, appetite change and fever. HENT: Negative. Negative for trouble swallowing. Respiratory: Positive for apnea (ALEXANDRA). Negative for cough, shortness of breath and wheezing. Cardiovascular: Negative. Negative for chest pain, palpitations and leg swelling. Gastrointestinal: Negative. Negative for abdominal distention, nausea and vomiting. Genitourinary: Negative. Negative for dysuria, frequency and urgency. Musculoskeletal: Positive for back pain and gait problem. Negative for neck stiffness. Skin: Positive for color change and wound. Neurological: Positive for dizziness. Negative for numbness and headaches. Objective: Vitals: 01/03/24 0932 BP: (!) 160/108 Pulse: 74 Resp: 16 Temp: 36.2 C (97.1 F) Physical Exam Vitals and nursing note reviewed. Constitutional: Appearance: He is well-developed. HENT: Head: Normocephalic and atraumatic. Cardiovascular: Rate and Rhythm: Normal rate and regular rhythm. Pulses: Dorsalis pedis pulses are 2+ on the right side and 2+ on the left side. Posterior tibial pulses are 2+ on the right side and 2+ on the left side. Heart sounds: Normal heart sounds. No murmur heard. No gallop. Comments: Left pedal pulses strongly palpable Pulmonary: Effort: Pulmonary effort is normal. Breath sounds: Normal breath sounds. No wheezing. Abdominal: General: Bowel sounds are normal. Palpations: Abdomen is soft. Musculoskeletal: General: Normal range of motion. Cervical back: Normal range of motion. Right foot: Foot drop present. Left foot: Foot drop present. Feet: Comments: Left leg hemosiderin staining and hyperpigmentation 1+ soft pitting edema Diminished hair growth Warm to touch No visible varicose veins Skin: General: Skin is warm and dry. Neurological: Mental Status: He is alert and oriented to person, place, and time. CEAP classification (note all that apply or n/a): CEAP - Clinical class Right Left C0 - No visible or palpable signs of venous disease C1 - Spider telangiectasias or reticular veins C2 - Varicose veins >3-4 mm C3 - Edema C4a - Hyperpigmentation or erythematous dermatitis 4a C4b - Lipodermatosclerosis or atrophie gorge C5 - Healed venous ulcer C6 - Active venous ulcer 6 S or A - Symptomatic, i.e. ache, pain, tightness, skin irritation, heaviness, muscle cramps, other complaints attributable to venous dysfunction vs. asymptomatic. S Wound Assessment Wound 12/04/23 1 Traumatic Calf Posterior;Left;Lower (Active) Wound Image 01/03/24936 Site Assessment Red;Moist 01/03/24936 Melissa-wound Assessment Fragile 01/03/24936 Shape Blocked 01/03/24936 Wound Length (cm) 9 cm 01/03/24936 Wound Width (cm) 8.6 cm 01/03/24936 Wound Surface Area (cm^2) 77.4 cm^2 01/03/24936 Wound Depth (cm) 0.1 cm 01/03/24936 Wound Volume (cm^3) 7.74 cm^3 01/03/24936 Change in Wound Size % -940.32 01/03/24936 Drainage Description Serosanguineous;Yellow 01/03/24936 Drainage Amount Moderate 01/03/24936 Treatments Cleansed with;Soap and water;Soak with;Vashe/Hypochlorous Acid 01/03/24936 Debridement Performed? N 01/03/24953 Dressing Type Xeroform;Abdominal dressing 01/03/24953 Dressing Changed New 01/03/24953 Dressing Status Clean;Dry;Intact 01/03/24953 Assessment/Plan/Education: 1. Venous stasis ulcer of left ankle limited to breakdown of skin with varicose veins (CMS-HCC) 2. Venous stasis ulcer of left ankle limited to breakdown of skin, unspecified whether varicose veins present (CMS-HCC) Wash mild soap and water Apply gentamicin to open wound Cover with Xeroform gauze Cover with ABD pad Secure with roll gauze Medium compression Tubigrip Referral to vascular, i.e. venous insufficiency test Avoid prolonged leg dependency. Wash legs and feet every day, apply moisturizing lotion at night, avoid lotion between the toes. Raise feet above the level of the heart 10-15 min several times daily. Follow a low sodium diet. Wear compression stockings as prescribed. Patient has compression stockings at home Calf pump exercises daily. Patient instructed in Other: traumatic wounds care to left ankle region. 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 Follow up in wound clinic in 1 week for provider evaluation Instructed to contact wound clinic, PCP or ER should symptoms worsen. The patient was taught to watch for S/S of infection (redness, pus, pain, increased swelling, chills or fever) and to call the PCP or wound care clinic if such occurs. The patient was educated on offloading the area by avoiding direct pressure to the wound bed. Education as well as the pathophysiology of the disease process was provided on infection, edema, necrotic tissue and its relationship tononhealing wounds. Education was also provided on treatment plan. Patient verbalized understanding. Total time spent was 19 minutes: Preparing to see the patient (e.g., review of tests) Obtaining and/or reviewing separately obtained history Performing a medically appropriate examination and/or evaluation Counseling and educating the patient/family/caregiver Ordering medications, tests, or procedures Documenting clinical information in the electronic or other health record - EMILY PROCTOR 01/03/24 9:33 AM Catherine Ayoub APRN, SHARLENE, RENATO, LUIS F [facility]: [phone] EMILY Proctor 12/04/23 1106 EMILY Proctor 12/18/23 1020 EMILY Proctor 12/18/23 1158 EMILY Proctor 12/25/23 1016 EMILY Proctor 01/03/24 1012 documented in this encounterSumma Health [facility] CampusLyft [id number] Instructions* Patient Instructions* Clare Mckeon RN - 01/03/2024 9:30 AM EDT Venous insufficiency testing completed 12/26/23 Wound Management Treatment Plan Wound Location(s): left posterior calf HOW TO CARE FOR YOUR WOUND The following should be performed Daily and as needed. STEP 1: Cleanse wound with Soap and water, rinse well, and pat dry. STEP 2: Apply gentamicin STEP 3: Apply xeroform to wound bed STEP 4: Cover with ABD dressing STEP 5: Wrap with roll gauze STEP 6: Secure with double layer tubi agricultural produce commission agent ACTIVITY: Avoid direct pressure to wound(s) at all times NUTRITION: High protein diet SKIN CARE: Moisturize all dry and intact skin SWELLING CONTROL: Elevate legs above the heart at least 3 times a day for 10-15 minutes ITEMS TO FOLLOW UP ON: VASCULAR REFERRAL SENT (Call within the week if you don't hear from them) Venous testing ordered 12-18-23 Length Width Depth Wound 12/04/23 1 Traumatic Calf Posterior;Left;Lower-Wound Length (cm): 9 cm Wound 12/04/23 1 Traumatic Calf Posterior;Left;Lower-Wound Width (cm): 8.6 cm Wound 12/04/23 1 Traumatic Calf Posterior;Left;Lower-Wound Depth (cm): 0.1 cm Wound drainage Type Description small Serosanginous yellow [facility] History of Present illness Narrative* EMILY Proctor - 12/27/2023 8:00 AM EDT Patient here for UNNA boot application - EMILY PROCTOR 12/31/23 12:03 PM EMILY Proctor 12/31/23 1204 documented in this encounterSelect [facility] [place] Instructions* Patient Instructions* Bianca Berger RN - 12/27/2023 8:00 AM EDT Venous insufficiency testing completed 12/26/23 Wound Management Treatment Plan Wound Location(s): left proximal posterior calf and left distal posterior calf APPLIED IN CLINIC TODAY 12/27/23: HOW TO CARE FOR YOUR WOUND The following should be performed Daily and as needed. STEP 1: Cleanse wound with Soap and water, rinse well, and pat dry. STEP 2: Adaptic to cover wound bed Apply calcium alginate to wound bed. Cover with dry max. STEP 3: Apply unna boot. What is Compression Therapy? Compression therapy includes special wraps applied to your leg(s) to help reduce swelling. These special wraps are also used to heal open sores on your legs. The special wraps may feel snug but should not be so tight that they cause pain or swelling in the toes. The special wraps may also be called and unna boot, unna flex, 2 layer wrap, 3 layer wrap, or 4 layer wrap. An unna boot has been applied to your left leg(s). How often are these special wraps changed? These special wraps are changed at least weekly or as directed by your provider. What kind of things can I do with these special wraps on? Avoid standing in one place for long periods of time (more than 10 minutes). Walking with your special wrap on helps reduce swelling. Your provider will give you specific guidelines on the amount of walking you should do. You may shower; however, avoid getting the special wraps wet. To shower with your wrap on, place a towel over your thigh and secure with tape. Use a large garbage bag over your wrap and secure with tape to the top of the towel. Avoid standing in the shower with water directed toward your wrapped leg. No tub baths unless you can safely hang your leg out of the tub or prop your leg on the side of thetub. Sponge baths are also an option. Other important things you should know. Elevate your legs whenever sitting at least to the level of your hips or higher if you are able. Elevation of your legs helps reduce the swelling in your legs. Avoid sitting with legs hanging down, this causes blood to pool in your legs and increases the swelling. When [facility] ([phone] or ) If your wrap(s) slide down your calf. To be most helpful the wrap should be located from your knee to your toes. Bad smell/odor coming from your wrap Painful swelling in your leg not relieved by elevating your leg, above your heart, for a least 1-2 hours. Pain in your leg not improved by elevating your leg, above your heart, for at least 1-2 hours. Change in color of toes and/or your toes become cold and numb. Fever (greater than 100.5F) and chills. ACTIVITY: Avoid direct pressure to wound(s) at all times NUTRITION: High protein diet SKIN CARE: Moisturize all dry and intact skin SWELLING CONTROL: Elevate legs above the heart at least 3 times a day for 10-15 minutes ITEMS TO FOLLOW UP ON: Venous testing ordered 12-18-23 Length Width Depth Wound drainage Type Description small Serosanginous yellow documented in this encounterSelect [facility] [place] History of Present illness Narrative* Catherine Ayoub, FIRE PROTECTION EQUIPMENT TECHNICIAN-POURED PIPE MAKER - 12/25/2023 9:00 AM EDT Images from the original note were not included. Wound Care Progress Note Patient: Rebeca Nicole Date of : 1950 Chief Compliant:Left leg ulceration, follow up SUBJECTIVE/HPI: Rebeca is a 73 y.o. male who presents to [facility] for evaluation of 2 ulcer(s) on the left lateral and posterior malleolus. Patient established with wound clinic on 11/26/2023. Current daily wound care includes: Calcium alginate, dry max, and Unna boot for compression. Patient reports he has elevating his legs periodically throughout the day. Patient is scheduled for venous insufficiency testing tomorrow 12/26/2023 Patient reports he dropped a flower pot on the right lower ankle region mid October,. Patient hasbeen following with podiatry for the wounds. Reports he has had Unna boots x2 without success. Patient's chart was reviewed for all available supporting documentation, laboratory results and radiographic examination including external notes. Measurable wound changes: decrease wound measurements No change in LLE calf circumference. Patient accompanied by: spouse, patient ambulates with a cane Nutritional screen shows patient does not take in three servings of protein per day. Patient does deny fever, chills, sweats, or other signs of infection. Prescribed antibiotics: none Today's reported Blood Sugar:N/A No results found for: HGBA1C Tobacco use: former smoker Contributing comorbid conditions: Lumbar spondylosis, bilateral foot drop, history of West Nile virus. 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 omeprazole (PriLOSEC) 10 mg capsule Take 1 capsule (10 mg total) by mouth every morning before breakfast. No current facility-administered medications for this visit. Allergies Allergen Reactions Doxycycline Hives Hives Sulfamethoxazole-Trimethoprim Rash Rash The following portions of the patient's history were reviewed and updated as appropriate: allergies, current medications, past family history, past medical history, past social history, past surgicalhistory, problem list, and medication reconciliation was completed including current medication andpost discharge medication. Pain Scale: Pain Scale 0/10: 3 Review of Systems Constitutional: Negative. Negative for activity change, appetite change and fever. HENT: Negative. Negative for trouble swallowing. Respiratory: Positive for apnea (ALEXANDRA). Negative for cough, shortness of breath and wheezing. Cardiovascular: Negative. Negative for chest pain, palpitations and leg swelling. Gastrointestinal: Negative. Negative for abdominal distention, nausea and vomiting. Genitourinary: Negative. Negative for dysuria, frequency and urgency. Musculoskeletal: Positive for back pain and gait problem. Negative for neck stiffness. Skin: Positive for color change and wound. Neurological: Positive for dizziness. Negative for numbness and headaches. Objective: Vitals: 12/25/23 0902 BP: 133/90 Pulse: 73 Resp: 16 Temp: 36.4 C (97.5 F) Physical Exam Vitals and nursing note reviewed. Constitutional: Appearance: He is well-developed. HENT: Head: Normocephalic and atraumatic. Cardiovascular: Rate and Rhythm: Normal rate and regular rhythm. Pulses: Dorsalis pedis pulses are 2+ on the right side and 2+ on the left side. Posterior tibial pulses are 2+ on the right side and 2+ on the left side. Heart sounds: Normal heart sounds. No murmur heard. No gallop. Comments: Left pedal pulses strongly palpable Pulmonary: Effort: Pulmonary effort is normal. Breath sounds: Normal breath sounds. No wheezing. Abdominal: General: Bowel sounds are normal. Palpations: Abdomen is soft. Musculoskeletal: General: Normal range of motion. Cervical back: Normal range of motion. Right foot: Foot drop present. Left foot: Foot drop present. Feet: Comments: Left leg hemosiderin staining and hyperpigmentation 1+ soft pitting edema Diminished hair growth Warm to touch No visible varicose veins Skin: General: Skin is warm and dry. Neurological: Mental Status: He is alert and oriented to person, place, and time. CEAP classification (note all that apply or n/a): CEAP - Clinical class Right Left C0 - No visible or palpable signs of venous disease C1 - Spider telangiectasias or reticular veins C2 - Varicose veins >3-4 mm C3 - Edema C4a - Hyperpigmentation or erythematous dermatitis 4a C4b - Lipodermatosclerosis or atrophie gorge C5 - Healed venous ulcer C6 - Active venous ulcer 6 S or A - Symptomatic, i.e. ache, pain, tightness, skin irritation, heaviness, muscle cramps, other complaints attributable to venous dysfunction vs. asymptomatic. S Wound Assessment Wound 12/04/23 1 Traumatic Leg Proximal;Posterior;Left (Active) Wound Image 12/25/23918 Site Assessment Red;Moist;Yellow 12/25/23918 Melissa-wound Assessment Blanchable erythema 12/25/23918 Wound Length (cm) 4 cm 12/25/23918 Wound Width (cm) 5.3 cm 12/25/23918 Wound Surface Area (cm^2) 21.2 cm^2 12/25/23918 Wound Depth (cm) 0.1 cm 12/25/23918 Wound Volume (cm^3) 2.12 cm^3 12/25/23918 Change in Wound Size % -184.95 12/25/23918 Drainage Description Serosanguineous;Yellow;Kahn 12/25/23918 Drainage Amount Small 12/25/23918 Treatments Cleansed with;Soap and water 12/25/23918 Debridement Performed? N 12/25/23918 Dressing Type Vaseline gauze;Alginate;Gauze Rolled/Kerlix 12/25/23918 Dressing Changed New 12/25/23918 Dressing Status Clean;Dry;Intact 12/25/23918 Wound Bed Granulation (%) 75% to 100% 12/25/23918 Wound Bed Slough (%) < 25% 12/25/23918 Wound 12/04/23 2 Traumatic Calf Distal;Posterior;Left (Active) Wound Image 12/25/23918 Site Assessment Red;Yellow;Moist 12/25/23918 Melissa-wound Assessment Blanchable erythema 12/25/23918 Wound Length (cm) 2.2 cm 12/25/23918 Wound Width (cm) 4 cm 12/25/23918 Wound Surface Area (cm^2) 8.8 cm^2 12/25/23918 Wound Depth (cm) 0.1 cm 12/25/23918 Wound Volume (cm^3) 0.88 cm^3 12/25/23918 Change in Wound Size % -486.67 12/25/23918 Drainage Description Serosanguineous;Kahn;Yellow 12/25/23918 Drainage Amount Small 12/25/23918 Treatments Cleansed with;Soap and water 12/25/23918 Debridement Performed? N 12/25/23918 Dressing Type Vaseline gauze;Alginate;Gauze 12/25/23918 Wound Bed Granulation (%) 75% to 100% 12/25/23918 Wound Bed Slough (%) < 25% 12/25/23918 Assessment/Plan/Education: 1. Traumatic open wound of left lower leg with delayed healing VS venous stasis ulcer Cover wound with alginate Cover with ABD pad Secure with roll gauze Single layer Tubigrip Patient will have dressings remove tomorrow for venous insufficiency testing. Patient will followup on Saturday12/27/2023 for Unna boot placement 2. Edema of left lower leg Avoid prolonged leg dependency. Wash legs and feet every day, apply moisturizing lotion at night, avoid lotion between the toes. Raise feet above the level of the heart 10-15 min several times daily. Follow a low sodium diet. Wear compression stockings as prescribed. UNNA boot application in wound clinic Calf pump exercises daily. Patient instructed in Other: traumatic wounds care to left ankle region. 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 Follow up wound clinic in 2 days for Unna boot placement Follow up in wound clinic in 1 week for provider evaluation Instructed to contact wound clinic, PCP or ER should symptoms worsen. The patient was taught to watch for S/S of infection (redness, pus, pain, increased swelling, chills or fever) and to call the PCP or wound care clinic if such occurs. The patient was educated on offloading the area by avoiding direct pressure to the wound bed. Education as well as the pathophysiology of the disease process was provided on infection, edema, necrotic tissue and its relationship tononhealing wounds. Education was also provided on treatment plan. Patient verbalized understanding. Total time spent was 19 minutes: Preparing to see the patient (e.g., review of tests) Obtaining and/or reviewing separately obtained history Performing a medically appropriate examination and/or evaluation Counseling and educating the patient/family/caregiver Ordering medications, tests, or procedures Documenting clinical information in the electronic or other health record - EMILY PROCTOR 12/25/23 9:39 AM Catherine Ayoub APRN, SHARLENE, CWS, LUIS F Jobst [facility]: [phone] EMILY Proctor 12/04/23 1106 EMILY Proctor 12/18/23 1020 EMILY Proctor 12/18/23 1158 EMILY Proctor 12/25/23 1016 documented in this encounterRutland [facility] CenterNDI Medical [id number] Instructions* Patient Instructions* Bianca Berger RN - 12/25/2023 9:00 AM EDT Venous insufficiency testing ordered 12-18-23 Wound Management Treatment Plan Wound Location(s): left proximal posterior calf and left distal posterior calf Applied in clinic today, 12/25/23: Adaptic to cover wound bed Calcium alginate applied to wound bed Secure with roll gauze Tubi agricultural produce commission agent stocking applied Remove dressing for venous testing on 12/26/23. After your testing, apply ABD pad to wound bed and cover with roll gauze and tubi agricultural produce commission agent stocking. Return to clinic on Saturday12/27/23 for unna boot application HOW TO CARE FOR YOUR WOUND The following should be performed Daily and as needed. STEP 1: Cleanse wound with Soap and water, rinse well, and pat dry. STEP 2: Adaptic to cover wound bed Apply calcium alginate to wound bed. Cover with dry max. STEP 3: Apply unna boot. What is Compression Therapy? Compression therapy includes special wraps applied to your leg(s) to help reduce swelling. These special wraps are also used to heal open sores on your legs. The special wraps may feel snug but should not be so tight that they cause pain or swelling in the toes. The special wraps may also be called and unna boot, unna flex, 2 layer wrap, 3 layer wrap, or 4 layer wrap. An unna boot has been applied to your left leg(s). How often are these special wraps changed? These special wraps are changed at least weekly or as directed by your provider. What kind of things can I do with these special wraps on? Avoid standing in one place for long periods of time (more than 10 minutes). Walking with your special wrap on helps reduce swelling. Your provider will give you specific guidelines on the amount of walking you should do. You may shower; however, avoid getting the special wraps wet. To shower with your wrap on, place a towel over your thigh and secure with tape. Use a large garbage bag over your wrap and secure with tape to the top of the towel. Avoid standing in the shower with water directed toward your wrapped leg. No tub baths unless you can safely hang your leg out of the tub or prop your leg on the side of thetub. Sponge baths are also an option. Other important things you should know. Elevate your legs whenever sitting at least to the level of your hips or higher if you are able. Elevation of your legs helps reduce the swelling in your legs. Avoid sitting with legs hanging down, this causes blood to pool in your legs and increases the swelling. When you should call [facility]. ([phone] or ) If your wrap(s) slide down your calf. To be most helpful the wrap should be located from your knee to your toes. Bad smell/odor coming from your wrap Painful swelling in your leg not relieved by elevating your leg, above your heart, for a least 1-2 hours. Pain in your leg not improved by elevating your leg, above your heart, for at least 1-2 hours. Change in color of toes and/or your toes become cold and numb. Fever (greater than 100.5F) and chills. ACTIVITY: Avoid direct pressure to wound(s) at all times NUTRITION: High protein diet SKIN CARE: Moisturize all dry and intact skin SWELLING CONTROL: Elevate legs above the heart at least 3 times a day for 10-15 minutes ITEMS TO FOLLOW UP ON: Venous testing ordered 12-18-23 Length Width Depth Wound 12/04/23 1 Traumatic Leg Proximal;Posterior;Left-Wound Length (cm): 4 cm Wound 12/04/23 2 Traumatic Calf Distal;Posterior;Left-Wound Length (cm): 3.3 cm Wound 12/04/23 1 Traumatic Leg Proximal;Posterior;Left-Wound Width (cm): 5.3 cm Wound 12/04/23 2 Traumatic Calf Distal;Posterior;Left-Wound Width (cm): 4.5 cm Wound 12/04/23 1 Traumatic Leg Proximal;Posterior;Left-Wound Depth (cm): 0.1 cm Wound 12/04/23 2 Traumatic Calf Distal;Posterior;Left-Wound Depth (cm): 0.1 cm Wound drainage Type Description small Serosanginous yellow documented in this encounterSelect [facility] History of Present illness Narrative* Catherine Ayoub, FIRE PROTECTION EQUIPMENT TECHNICIAN-POURED PIPE MAKER - 12/18/2023 9:00 AM EDT Images from the original note were not included. Wound Care Progress Note Patient: Rebeca Nicole Date of : 1950 Chief Compliant:Left leg ulceration, follow up SUBJECTIVE/HPI: Rebeca is a 73 y.o. male who presents to [facility] for evaluation of 2 ulcer(s) on the left lateral and posterior malleolus. Patient established with wound clinic on 11/26/2023. Current daily wound care includes: gentamicin ointment, adaptic, roll gauze and Tubigrip for compression. Patient reports a large amount of drainage and leg swelling. The swelling is relieved with leg elevation. Patient reports he dropped a flower pot on the right lower ankle region mid October,. Patient hasbeen following with podiatry for the wounds. Reports he has had Unna boots x2 without success. Patient's chart was reviewed for all available supporting documentation, laboratory results and radiographic examination including external notes. Measurable wound changes: increase wound measurements Stable LLE calf circumference. Patient accompanied by: spouse, patient ambulates with a cane Nutritional screen shows patient does not take in three servings of protein per day. Patient does deny fever, chills, sweats, or other signs of infection. Prescribed antibiotics: none Today's reported Blood Sugar:N/A No results found for: HGBA1C Tobacco use: former smoker Contributing comorbid conditions: Lumbar spondylosis, bilateral foot drop, history of West Nile virus. 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, bilateral Foot drop, right Foot drop, left Psoas tendonitis of left side Benign prostatic hyperplasia with lower urinary tract symptoms GERD (gastroesophageal reflux disease) Lumbar spondylosis Obesity ALEXANDRA (obstructive sleep apnea) Venous stasis ulcer of left ankle limited to breakdown of skin ([facility] Past Medical History: Diagnosis Date Arthritis Falling 2 years ago spine was twisted 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 omeprazole (PriLOSEC) 10 mg capsule Take 1 capsule (10 mg total) by mouth every morning before breakfast. No current facility-administered medications for this visit. Allergies Allergen Reactions Doxycycline Hives Hives Sulfamethoxazole-Trimethoprim Rash Rash The following portions of the patient's history were reviewed and updated as appropriate: allergies, current medications, past family history, past medical history, past social history, past surgicalhistory, problem list, and medication reconciliation was completed including current medication andpost discharge medication. Pain Scale: Pain Scale 0/10: 2 Review of Systems Constitutional: Negative. Negative for activity change, appetite change and fever. HENT: Negative. Negative for trouble swallowing. Respiratory: Positive for apnea (ALEXANDRA). Negative for cough, shortness of breath and wheezing. Cardiovascular: Negative. Negative for chest pain, palpitations and leg swelling. Gastrointestinal: Negative. Negative for abdominal distention, nausea and vomiting. Genitourinary: Negative. Negative for dysuria, frequency and urgency. Musculoskeletal: Positive for back pain and gait problem. Negative for neck stiffness. Skin: Positive for color change and wound. Neurological: Positive for dizziness. Negative for numbness and headaches. Objective: Vitals: 12/18/23 0900 BP: (!) 150/91 Pulse: 68 Resp: 16 Temp: 36.3 C (97.3 F) Physical Exam Vitals and nursing note reviewed. Constitutional: Appearance: He is well-developed. HENT: Head: Normocephalic and atraumatic. Cardiovascular: Rate and Rhythm: Normal rate and regular rhythm. Pulses: Dorsalis pedis pulses are 2+ on the right side and 2+ on the left side. Posterior tibial pulses are 2+ on the right side and 2+ on the left side. Heart sounds: Normal heart sounds. No murmur heard. No gallop. Pulmonary: Effort: Pulmonary effort is normal. Breath sounds: Normal breath sounds. No wheezing. Abdominal: General: Bowel sounds are normal. Palpations: Abdomen is soft. Musculoskeletal: General: Normal range of motion. Cervical back: Normal range of motion. Right foot: Foot drop present. Left foot: Foot drop present. Feet: Comments: Left leg hemosiderin staining and hyperpigmentation 1+ soft pitting edema Diminished hair growth Warm to touch No visible varicose veins Skin: General: Skin is warm and dry. Neurological: Mental Status: He is alert and oriented to person, place, and time. CEAP classification (note all that apply or n/a): CEAP - Clinical class Right Left C0 - No visible or palpable signs of venous disease C1 - Spider telangiectasias or reticular veins C2 - Varicose veins >3-4 mm C3 - Edema C4a - Hyperpigmentation or erythematous dermatitis 4a C4b - Lipodermatosclerosis or atrophie gorge C5 - Healed venous ulcer C6 - Active venous ulcer 6 S or A - Symptomatic, i.e. ache, pain, tightness, skin irritation, heaviness, muscle cramps, other complaints attributable to venous dysfunction vs. asymptomatic. S Wound Assessment Wound 12/04/23 1 Traumatic Leg Proximal;Posterior;Left (Active) Wound Image 12/18/23899 Site Assessment Red;Moist;Yellow 12/18/23935 Melissa-wound Assessment Blanchable erythema 12/18/23935 Wound Length (cm) 4 cm 12/18/23899 Wound Width (cm) 5.5 cm 12/18/23899 Wound Surface Area (cm^2) 22 cm^2 12/18/23899 Wound Depth (cm) 0.1 cm 12/18/23899 Wound Volume (cm^3) 2.2 cm^3 12/18/23899 Change in Wound Size % -195.7 12/18/23899 Drainage Description Serosanguineous;Yellow 12/18/23935 Drainage Amount Scant 12/18/23935 Debridement Performed? N 12/18/23899 Wound Bed Granulation (%) 75% to 100% 12/18/23899 Wound Bed Slough (%) < 25% 12/18/23899 Wound 12/04/23 2 Traumatic Calf Distal;Posterior;Left (Active) Wound Image 12/18/23899 Site Assessment Red;Yellow;Moist 12/18/23935 Melissa-wound Assessment Blanchable erythema 12/18/23935 Wound Length (cm) 2.3 cm 12/18/23899 Wound Width (cm) 4 cm 12/18/23899 Wound Surface Area (cm^2) 9.2 cm^2 12/18/23899 Wound Depth (cm) 1 cm 12/18/23899 Wound Volume (cm^3) 9.2 cm^3 12/18/23899 Change in Wound Size % -513.33 12/18/23899 Drainage Description Serosanguineous;Yellow 12/18/23935 Drainage Amount Scant 12/18/23935 Debridement Performed? N 12/18/23899 Wound Bed Granulation (%) 75% to 100% 12/18/23899 Wound Bed Slough (%) < 25% 12/18/23899 Assessment/Plan/Education: 1. Traumatic open wound of left lower leg with delayed healing Cover wound with alginate Cover with dry max 2. Edema of left lower leg Avoid prolonged leg dependency. Wash legs and feet every day, apply moisturizing lotion at night, avoid lotion between the toes. Raise feet above the level of the heart 10-15 min several times daily. Follow a low sodium diet. Wear compression stockings as prescribed. UNNA boot application in wound clinic Calf pump exercises daily. Patient instructed in Other: traumatic wounds care to left ankle region. 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 compliance long-term goal: wound closure Patient verbalize ability to perform wound care. Follow up in wound clinic in 1 week Instructed to contact wound clinic, PCP or ER should symptoms worsen. The patient was taught to watch for S/S of infection (redness, pus, pain, increased swelling, chills or fever) and to call the PCP or wound care clinic if such occurs. The patient was educated on offloading the area by avoiding direct pressure to the wound bed. Education as well as the pathophysiology of the disease process was provided on infection, edema, necrotic tissue and its relationship tononhealing wounds. Education was also provided on treatment plan. Patient verbalized understanding. Total time spent was 20 minutes: Preparing to see the patient (e.g., review of tests) Obtaining and/or reviewing separately obtained history Performing a medically appropriate examination and/or evaluation Counseling and educating the patient/family/caregiver Ordering medications, tests, or procedures Documenting clinical information in the electronic or other health record - EMILY PROCTOR 12/18/23 9:24 AM Catherine Ayoub APRN, SHARLENE, CWS, LUIS F [facility]: [phone] EMILY Proctor 12/04/23 1106 EMILY Proctor 12/18/23 1020 EMILY Proctor 12/18/23 1150 documented in this encounterSelect Medical [facility] [place] Instructions* Patient Instructions* Lamar Bee RN - 12/18/2023 9:00 AM EDT Venous insufficiency testing ordered 12-18-23 Wound Management Treatment Plan Wound Location(s): left proximal posterior calf and left distal posterior calf HOW TO CARE FOR YOUR WOUND The following should be performed Daily and as needed. STEP 1: Cleanse wound with Soap and water, rinse well, and pat dry. STEP 2: Apply calcium alginate wound bed. Cover with dry max. STEP 3: Apply unna boot. What is Compression Therapy? Compression therapy includes special wraps applied to your leg(s) to help reduce swelling. These special wraps are also used to heal open sores on your legs. The special wraps may feel snug but should not be so tight that they cause pain or swelling in the toes. The special wraps may also be called and unna boot, unna flex, 2 layer wrap, 3 layer wrap, or 4 layer wrap. An unna boot has been applied to your left leg(s). How often are these special wraps changed? These special wraps are changed at least weekly or as directed by your provider. What kind of things can I do with these special wraps on? Avoid standing in one place for long periods of time (more than 10 minutes). Walking with your special wrap on helps reduce swelling. Your provider will give you specific guidelines on the amount of walking you should do. You may shower; however, avoid getting the special wraps wet. To shower with your wrap on, place a towel over your thigh and secure with tape. Use a large garbage bag over your wrap and secure with tape to the top of the towel. Avoid standing in the shower with water directed toward your wrapped leg. No tub baths unless you can safely hang your leg out of the tub or prop your leg on the side of thetub. Sponge baths are also an option. Other important things you should know. Elevate your legs whenever sitting at least to the level of your hips or higher if you are able. Elevation of your legs helps reduce the swelling in your legs. Avoid sitting with legs hanging down, this causes blood to pool in your legs and increases the swelling. When you should call [facility]. ([phone] or ) If your wrap(s) slide down your calf. To be most helpful the wrap should be located from your knee to your toes. Bad smell/odor coming from your wrap Painful swelling in your leg not relieved by elevating your leg, above your heart, for a least 1-2 hours. Pain in your leg not improved by elevating your leg, above your heart, for at least 1-2 hours. Change in color of toes and/or your toes become cold and numb. Fever (greater than 100.5F) and chills. ACTIVITY: Avoid direct pressure to wound(s) at all times NUTRITION: High protein diet SKIN CARE: Moisturize all dry and intact skin SWELLING CONTROL: Elevate legs above the heart at least 3 times a day for 10-15 minutes ITEMS TO FOLLOW UP ON: Venous testing ordered 12-18-23 Length Width Depth Wound 12/04/23 1 Traumatic Leg Proximal;Posterior;Left-Wound Length (cm): 4 cm Wound 12/04/23 2 Traumatic Calf Distal;Posterior;Left-Wound Length (cm): 2.3 cm Wound 12/04/23 1 Traumatic Leg Proximal;Posterior;Left-Wound Width (cm): 5.5 cm Wound 12/04/23 2 Traumatic Calf Distal;Posterior;Left-Wound Width (cm): 4 cm Wound 12/04/23 1 Traumatic Leg Proximal;Posterior;Left-Wound Depth (cm): 0.1 cm Wound 12/04/23 2 Traumatic Calf Distal;Posterior;Left-Wound Depth (cm): 1 cm Wound drainage Type Description small Serosanginous yellow documented in this encounterSelect Medical [facility] [place]08-28-[facility] History of Present illness Narrative* Catherine Ayoub, LINDY-POURED PIPE MAKER - 12/04/2023 9:00 AM EDT Images from the original note were not included. Wound Care Progress Note Patient: Rebeca Nicole Date of : 1950 Chief Compliant:Left leg ulceration SUBJECTIVE/HPI: Rebeca is a 73 y.o. male who presents to [facility] for evaluation of 2 ulcer(s) on the left lateral and posterior malleolus. Patient established with wound clinic on 11/26/2023. Current daily wound care includes: Unna boot applied per podiatry. Patient reports he dropped a flower pot on the right lower ankle region mid October,. Patient hasbeen following with podiatry for the wounds. Reports he has had Unna boots x2 without success. Patient's chart was reviewed for all available supporting documentation, laboratory results and radiographic examination including external notes. Measurable wound changes: new patient evaluation Patient accompanied by: spouse, patient ambulates with a cane Nutritional screen shows patient does not take in three servings of protein per day. Patient does deny fever, chills, sweats, or other signs of infection. 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, bilateral Foot drop, right Foot drop, left Psoas tendonitis of left side Benign prostatic hyperplasia with lower urinary tract symptoms GERD (gastroesophageal reflux disease) Lumbar spondylosis Obesity ALEXANDRA (obstructive sleep apnea) Venous stasis ulcer of left ankle limited to breakdown of skin ([facility]) Past Medical History: Diagnosis Date Arthritis Falling 2 years ago spine was twisted 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 omeprazole (PriLOSEC) 10 mg capsule Take 1 capsule (10 mg total) by mouth every morning before breakfast. No current facility-administered medications for this visit. Allergies Allergen Reactions Doxycycline Hives Hives Sulfamethoxazole-Trimethoprim Rash Rash The following portions of the patient's history were reviewed and updated as appropriate: allergies, current medications, past family history, past medical history, past social history, past surgicalhistory, problem list, and medication reconciliation was completed including current medication andpost discharge medication. Pain Scale: Pain Scale 0/10: 0 Review of Systems Constitutional: Negative. Negative for activity change, appetite change and fever. HENT: Negative. Negative for trouble swallowing. Respiratory: Positive for apnea (ALEXANDRA). Negative for cough, shortness of breath and wheezing. Cardiovascular: Negative. Negative for chest pain, palpitations and leg swelling. Gastrointestinal: Negative. Negative for abdominal distention, nausea and vomiting. Genitourinary: Negative. Negative for dysuria, frequency and urgency. Musculoskeletal: Positive for back pain and gait problem. Negative for neck stiffness. Skin: Positive for color change and wound. Neurological: Positive for dizziness. Negative for numbness and headaches. Objective: Vitals: 12/04/23 0848 BP: 137/82 Pulse: 79 Resp: 16 Temp: 37.2 C (98.9 F) Physical Exam Vitals and nursing note reviewed. Constitutional: Appearance: He is well-developed. HENT: Head: Normocephalic and atraumatic. Cardiovascular: Rate and Rhythm: Normal rate and regular rhythm. Pulses: Dorsalis pedis pulses are 2+ on the right side and 2+ on the left side. Posterior tibial pulses are 2+ on the right side and 2+ on the left side. Heart sounds: Normal heart sounds. No murmur heard. No gallop. Pulmonary: Effort: Pulmonary effort is normal. Breath sounds: Normal breath sounds. No wheezing. Abdominal: General: Bowel sounds are normal. Palpations: Abdomen is soft. Musculoskeletal: General: Normal range of motion. Cervical back: Normal range of motion. Right foot: Foot drop present. Left foot: Foot drop present. Feet: Comments: Left leg hemosiderin staining and hyperpigmentation Slight 1+ soft pitting edema Diminished hair growth Warm to touch Skin: General: Skin is warm and dry. Neurological: Mental Status: He is alert and oriented to person, place, and time. Wound Assessment Wound 12/04/23 1 Traumatic Leg Proximal;Posterior;Left (Active) Wound Image 12/04/23899 Site Assessment Red;Moist 12/04/23899 Melissa-wound Assessment Blanchable erythema 12/04/23899 Wound Length (cm) 3.1 cm 12/04/23899 Wound Width (cm) 2.4 cm 12/04/23899 Wound Surface Area (cm^2) 7.44 cm^2 12/04/23899 Wound Depth (cm) 0.1 cm 12/04/23899 Wound Volume (cm^3) 0.744 cm^3 12/04/23899 Drainage Description Serosanguineous;Yellow 12/04/23899 Drainage Amount Small 12/04/23899 Treatments Cleansed with;Wound cleanser;Soak with;Vashe/Hypochlorous Acid 12/04/23899 Wound Bed Granulation (%) 100% 12/04/23899 Wound 12/04/23 2 Traumatic Calf Distal;Posterior;Left (Active) Wound Image 12/04/23899 Site Assessment [place];Red 12/04/23899 Melissa-wound Assessment Blanchable erythema 12/04/23899 Wound Length (cm) 3 cm 12/04/23899 Wound Width (cm) 0.5 cm 12/04/23899 Wound Surface Area (cm^2) 1.5 cm^2 12/04/23899 Wound Depth (cm) 0.1 cm 12/04/23899 Wound Volume (cm^3) 0.15 cm^3 12/04/23899 Drainage Description Serosanguineous;Yellow 12/04/23899 Drainage Amount Small 12/04/23899 Treatments Cleansed with;Wound cleanser;Soak with;Vashe/Hypochlorous Acid 12/04/23899 Wound Bed Granulation (%) 75% to 100% 12/04/23899 Wound Bed Slough (%) < 25% 12/04/23899 Assessment/Plan/Education: 1. Traumatic open wound of left lower leg with delayed healing Wash daily mild soap and water Apply gentamicin ointment, prescription sent to pharmacy Cover with Adaptic, samples given to patient Secure with roll gauze Avoid adhesive to skin May use stockinet told dressing in place 2. Edema of left lower leg Avoid prolonged leg dependency. Wash legs and feet every day, apply moisturizing lotion at night, avoid lotion between the toes. Raise feet above the level of the heart 10-15 min several times daily. Follow a low sodium diet. Wear compression stockings as prescribed. Medium compression Tubigrip applied in wound clinic Patient does have compression stockings at home which he may wear Calf pump exercises daily. Patient instructed in Other: traumatic wounds care to left ankle region. 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 compliance long-term goal: wound closure Patient verbalize ability to perform wound care. Follow up in wound clinic in 2 weeks Instructed to contact wound clinic, PCP or ER should symptoms worsen. The patient was taught to watch for S/S of infection (redness, pus, pain, increased swelling, chills or fever) and to call the PCP or wound care clinic if such occurs. The patient was educated on offloading the area by avoiding direct pressure to the wound bed. Education as well as the pathophysiology of the disease process was provided on infection, edema, necrotic tissue and its relationship tononhealing wounds. Education was also provided on treatment plan. Patient verbalized understanding. Total time spent was 24 minutes: Preparing to see the patient (e.g., review of tests) Obtaining and/or reviewing separately obtained history Performing a medically appropriate examination and/or evaluation Counseling and educating the patient/family/caregiver Ordering medications, tests, or procedures Documenting clinical information in the electronic or other health record - EMILY PROCTOR 12/04/23 9:56 AM Catherine Ayoub APRN, SHARLENE, CWS, LUIS F [facility]: [phone] EMILY Proctor 12/04/23 1102 documented in this encounterSumma Health Akron CampusXE Corporation [facility] [id number] Instructions* Patient Instructions* Clare Mckeon RN - 12/04/2023 9:00 AM EDT Wound Management Treatment Plan Wound Location(s): left proximal posterior calf and left distal posterior calf HOW TO CARE FOR YOUR WOUND The following should be performed Daily and as needed. STEP 1: Cleanse wound with Soap and water, rinse well, and pat dry. STEP 2: Apply gentamicin ointment to wound bed STEP 3: Apply Vaseline gauze over wound bed STEP 4: Cover with gauze STEP 5: Cover wound with Rolled gauze, STEP 6: Secure dressings with Tubi/Medigrip ACTIVITY: Avoid direct pressure to wound(s) at all times NUTRITION: High protein diet SKIN CARE: Moisturize all dry and intact skin SWELLING CONTROL: Elevate legs above the heart at least 3 times a day for 10-15 minutes ITEMS TO FOLLOW UP ON: campus supervisor gentamicin ointment at [facility] Length Width Depth Wound drainage Type Description small Serosanginous yellow documented in this encounterRutland Regional Medical CenterAcusphere [facility] [id number] Evaluation note* Encounter Date Diagnosis Assessment Notes Treatment Notes Treatment Clinical Notes Oct, GERD (gastroesophageal reflux disease) (ICD-10 - K21.9) [employer] Other 04-12-2023 Evaluation note* Encounter Date Diagnosis Assessment Notes Treatment Notes Treatment Clinical Notes Jul, Acute bronchitis due to other specified organisms (ICD-10 - J20.8) Instructed to use Robitussin or Mucinex for cough, saline or Flonase NS for congestion, Tylenol for pain and fever. Jul, Suspected COVID-19 virus infection (ICD-10 - Z20.822) Aware of quarantine guidelines. He has not tested and is planning on gathering w/ college friends. Recommended completing home COVID test since he would still be contagious [employer] Other 02-20-2023 Evaluation note* Encounter Date Diagnosis Assessment Notes Treatment Notes Treatment Clinical Notes May, Encounter for annual wellness exam in Medicare patient (ICD-10 - Z00.00) Personalized health advice was given to the beneficiary including a written plan for screenings discussed and provided. Advanced care planning reviewed and/or information given as requested. Additional counseling was provided here today in regards to, [ ]. The above visit was performed by [ ], under direct supervision of [ ]. Document reviewed and amended by provider signed below. Healthy diet and exercise. Reviewed age-appropriate preventive testing recommended. May, GERD (gastroesophageal reflux disease) (ICD-10 - K21.9) Diet instructions: Smaller portions, avoid eating and laying flat, avoid eating or drinking prior to bedtime. Weight loss. May, Lumbar spondylosis (ICD-10 - M47.816) The patient is instructed to avoid bending, twisting or lifting. They are to use intermittent heat and ice as needed. They may schedule a massage or gentle manipulation. They may safely use Tylenol as needed. May, Obesity (BMI 30-39.9) (ICD-10 - E66.9) This patient has been instructed on a low-fat, high-fiber diet. They are instructed to reduce calories, portion sizes and snacks. It is recommended that they exercise for 30 minutes, 3-5 times weekly. May, Rosacea (ICD-10 - L71.9) May, IFG (impaired fasting glucose) (ICD-10 - R73.01) Healthy diet and continued exercise, Yearly A1C May, Nocturia (ICD-10 - R35.1) May, Benign prostatic hyperplasia with lower urinary tract symptoms (ICD-10 - N40.1) Yearly MARIYA and PSA May, High risk medication use (ICD-10 - Z79.899) May, Fatigue, unspecified type (ICD-10 - R53.83) May, Screening PSA (prostate specific antigen) (ICD-10 - Z12.5) May, Other Personalized he alth advice was given to the beneficiary including a written plan for screenings discussed and provided. Advanced care planning reviewed and/or information given as requested. Additional counseling was provided here today in regards to, [ ]. The above visit was performed by [ ], under direct supervision of [ ]. Document reviewed and amended by provider signed below. [employer] Other 02-01-2023 [facility]* Encounter Date Diagnosis Assessment Notes Treatment Notes Treatment Clinical Notes Dec, Family history of colon cancer (ICD-10 - Z80.0) [employer] Other Evaluation noteNo InformationNort Refurrl Other Evaluation noteNo assessment information available [facility] Work Phone: Evaluation note* Diagnosis Onset Date Resolution Status Benign prostatic hyperplasia with lower urinary tract symptoms acute GERD (gastroesophageal reflux disease) acute Lumbar spondylosis acute ALEXANDRA (obstructive sleep apnea) acute Screening PSA (prostate specific antigen) acute Medicare annual wellness visit, subsequent noneactive [facility] Work Phone: Evaluation note* Diagnosis Corns and callosities- Primary Onychomycosis Dermatophytosis of nail Right foot pain Pain in soft tissues of limb documented in this encounter [facility] HealthcareEvaluation note* Diagnosis Venous stasis ulcer of left ankle limited to breakdown of skin with varicose veins (CMS-HCC)- Primary [facility]* Diagnosis Corns and callosities- Primary Right foot pain Pain in soft tissues of limb Onychomycosis Dermatophytosis of nail documented in this encounter [facility] HealthcareEvaluation note* Diagnosis Venous stasis ulcer of left ankle limited to breakdown of skin with varicose veins (CMS-HCC)- Primary Venous stasis ulcer of left ankle limited to breakdown of skin, unspecified whether varicose veins present (CMS-HCC) [facility]* Diagnosis Traumatic open wound of left lower leg with delayed healing- Primary Edema of left lower leg Venous stasis ulcer of left ankle limited to breakdown of skin, unspecified whether varicose veins present (CMS-HCC) documented in this encounter [facility] System[facility]* Diagnosis Venous stasis ulcer of left ankle limited to breakdown of skin, unspecified whether varicose veins present (CMS-HCC)- Primary documented in this encounter [facility] System[facility]* Diagnosis Venous stasis ulcer of left ankle limited to breakdown of skin with varicose veins (CMS-HCC)- Primary [facility]* Diagnosis Venous stasis ulcer of left ankle limited to breakdown of skin with varicose veins (CMS-HCC)- Primary [facility]* Diagnosis Venous stasis ulcer of left ankle limited to breakdown of skin without varicose veins (CMS-HCC)- Primary Edema of left lower leg documented in this encounter [facility] SystemEvaluation note* Diagnosis Venous stasis ulcer of left ankle limited to breakdown of skin, unspecified whether varicose veins present (CMS-HCC)- Primary Venous stasis ulcer of left ankle limited to breakdown of skin without varicose veins (CMS-HCC) [facility]* Diagnosis Venous stasis ulcer of left ankle limited to breakdown of skin without varicose veins (CMS-HCC)- Primary [facility]* Diagnosis Venous insufficiency of left lower extremity- Primary Venous stasis ulcer of left ankle limited to breakdown of skin with varicose veins (CMS-HCC) [facility]* Diagnosis Venous stasis ulcer of left ankle limited to breakdown of skin with varicose veins (CMS-HCC)- Primary Edema of left lower leg [facility]* Diagnosis Venous stasis ulcer of left ankle limited to breakdown of skin with varicose veins (CMS-HCC)- Primary Venous insufficiency of left lower extremity Varicose veins of left lower extremity with pain Phlebitis Phlebitis and thrombophlebitis of unspecified site [facility]* Diagnosis Venous stasis ulcer of left ankle limited to breakdown of skin with varicose veins (CMS-HCC) [facility]* Diagnosis Venous stasis ulcer of left ankle limited to breakdown of skin with varicose veins (CMS-HCC)- Primary Rash due to allergy [facility]* Diagnosis Venous stasis ulcer of left ankle limited to breakdown of skin, unspecified whether varicose veins present (CMS-HCC)- Primary Edema of left lower leg documented in this encounter [facility] SystemEvaluation note* Diagnosis Pre-operative anxiety- Primary Venous stasis ulcer of left ankle limited to breakdown of skin with varicose veins (CMS-HCC) [facility]* Diagnosis Corns and callosities- Primary Onychomycosis Dermatophytosis of nail Onychodystrophy Other specified disease of nail Right foot pain Pain in soft tissues of limb Left foot pain Pain in soft tissues of limb documented in this encounter [facility] Healthcare[facility] and physical note Author Reji Roy [facility] May 09, 2022 10:32am Note Date/Time May 09, 2022 1 0:32am [facility] [address] [place] [address] Gastroenterology H&P Signed Patient: Rebeca Nicole MR#: [id number] : 1950 Acct:[id number] Age/Sex: 71 / M Adm Date: 3 Loc: Room: Type: [facility] Attending Dr: Reji Roy MD Copies to: DO Reji Mcgrath MD~ Date of Service: 05/09/2022 HISTORY & PHYSICAL: Patient's history with special attention to the cardiovascular, pulmonary systems and the current problem was reviewed with the patient immediately prior to the procedure. Present medications and doses reviewed in the EMR. Allergies and pertinent laboratory tests were also reviewedat this time in the EMR. The physical examination, as below, was then performed. Indication, assessment and HPI: 71-year-old male presents for screening colonoscopy Family history of GI malignancy? No PHYSICAL EXAMINATION Mouth and Pharynx : Moist mucus membranes, normal dentition Cardiac: Regular rate, regular rhythm Pulmonary: Clear to auscultation bilaterally, no wheezing Neurological: Alert and oriented x3, no focal deficits noted Abdomen: Abdomen soft, non-tender REVIEW OF SYSTEMS Constitutional: Denies malaise, fevers Cardiovascular: Denies chest pain, palpitations Respiratory: Denies shortness of breath, wheezing Gastrointestinal: Per HPI Genitourinary: Denies dysuria, polyuria Musculoskeletal: Denies joint swelling, joint stiffness Neurological: Denies numbness, tingling Integumentary: Denies rashes, skin lesions Endocrine: Denies fatigue, weight loss Written informed consent obtained from the patient. Risks (including but not limited to perforation, infection, bloating, bleeding, need for emergent surgeryand loss of life), benefits and alternatives explained and questions answered. The patient verbalized understanding. Based on history patient is an appropriate candidate for the procedure. Reji Roy MD Documented By: Reji Roy MD 05/09/22 103 Signed By: <Electronically signed by Reji Roy MD> 05/09/22 1032 [facility] Work Phone: Hisfgbq general Narrative - Reported* Type Description Date Medical History Schatzki's ring Medical History GERD (gastroesophageal reflux di sease) Surgical History EGD Surgical History Knee replacement X2 2005 Surgical History Hip replacement X2 2001 Surgical History shoulder replacement Surgical History colonosocpy;Disease:diverticulo sis 2008 Surgical History hip replacement b/l Surgical History Hip Arthroplasty lt Surgical History knee replacement b/l Surgical History Discectomy 2001 Surgical History Kidney stone removed 11/24 Surgical History EGD 2006 Hospitalization History see [employer] Other History general Narrative - Reported* Type Description Date Medical History Mehrantzki's ring Medical History GERD (gastroesophageal reflux di sease) Surgical History EGD Surgical History Knee replacement X2 2006 Surgical History Hip replacement X2 2001 Surgical History shoulder replacement Surgical History colonosocpy;Disease:diverticulo sis 2009 Surgical History hip replacement b/l Surgical History Hip Arthroplasty lt Surgical History knee replacement b/l Surgical History Discectomy 2001 Surgical History Kidney stone removed 11/24 Surgical History EGD 2006 Surgical History colonoscopy 05/2022 Hospitalization History see surgeries [employer] Other Hospital Discharge instructions Additional Instructions DISCHARGE INSTRUCTIONS FOR COLONOSCOPY WHAT TO EXPECT: - You may feel full, gassy or cramping after your procedure. In some cases, this may be from a few hours to a day. Walking may help relieve the discomfort. - If you have polyp(s) removed you may note some minor bloody discharge after your first bowel movements. - You should begin to recover from anesthesia within 1 hour of the procedure, however may feel groggy for the next 24 hours. DO's AND DON'Ts: - Call your doctor right away if you have a hard abdomen, severe pain, are passing lots of bright red blood or clots. - Call your doctor if you develop any rashes, hives or difficulty breathing. - Let your doctor know if you have not had a bowel movement by 3 days after your procedure. - If you take 81 mg aspirin for your heart it is safe to resume this medication. - If you take other blood thinner medications your doctor will instruct you when these can safely be resumed. - Do NOT drive for 24 hours. - Do NOT operate machinery such as power tools, [employer] mowers, [employer] blowers, sewing machines, etc. for 24 hours. - Avoid alcoholic beverages and drugs for allergies, nerves, or sleep. - Do NOT stay alone. Do NOT leave your child unattended. - Do NOT make important personal or business decisions or sign any legal documents. - Eat solid foods and drink liquids in smaller amounts than usual until normal appetite returns. If you should experience an upset stomach, liquids high in sugar content (soda, Harjinder-Aid, non-acid juices) are recommended. - You can resume normal activities tomorrow. FOLLOW UP & RECOMMENDATIONS: -Follow-up with Dr. Roy as needed -Notify the doctor if you have any problems. -You do not need any further colonoscopies for colorectal cancer screening -Follow up with PCP. -Office number [phone].[facility] Work Phone: InstructionsNot on filedocumented in this encounter [facility] filedocumented in this encounter [facility] System[facility]ructionsNot on filedocumented in this encounter [facility] System[facility]ructionsNot on filedocumented in this encounter [facility] System[facility]ructionsNot on filedocumented in this encounter [facility] System[facility]ructionsNot on filedocumented in this encounter [facility] SystemReason for visit Narrative* Consultation (Routine) - Pending Review Specialty Diagnoses / Procedures Referred By Xiomy fong Referred To Contact Wound Care Diagnoses Venous stasis ulcer of left ankle limited to breakdown of skin, unspecified whether varicose veins present ([facility] Morales Ramon, DPM [address] [place] [address] [facility] [address] [place] [address] Referral ID Status Reason Start Date Expiration Date Visits Requested Visits Authorized [id number] Pending Review Specialty Services Required 11/27/2023 11/26/2024 1 1 [facility] [employer] Summary Purpose Family History Relationship Condition Age at Onset Recorded Date/T vida father Abdominal aortic aneurysm (AAA) Unknown Malignant neoplasm of colon Unknown Chronic obstructive pulmonary disease Unk nown Hypertension Unknown Not Specified Hypertension Unknown Diaphragmatic hernia Unknown brother Acquired immunodeficiency syndrome Unknow n brother Peripheral arterial disease Unknown brother Cardiac defibrillator in place Unknown natural son Epilepsy Unknown Relationship Condition Age at Onset Recorded Date/T vida father Abdominal aortic aneurysm (AAA) Unknown Malignant neoplasm of colon Unknown Chronic obstructive pulmonary disease Unk nown Hypertension Unknown Malignant neoplasm Unknown Unknown Not Specified Hypertension Unknown Diaphragmatic hernia Unknown brother Acquired immunodeficiency syndrome Unknow n Peripheral arterial disease Unknown Cardiac defibrillator in place Unknown natural son Epilepsy Unknown grandparent Malignant neoplasm Unknown Not Specified Heart disease Unknown Relationship Condition Age at Onset Recorded Date/T vida father Abdominal aortic aneurysm (AAA) Unknown Malignant neoplasm of colon Unknown Chronic obstructive pulmonary disease Unk nown Hypertension Unknown Malignant neoplasm Unknown Unknown mother Hypertension Unknown Diaphragmatic hernia Unknown brother Acquired immunodeficiency syndrome Unknow n Peripheral arterial disease Unknown Cardiac defibrillator in place Unknown son Epilepsy Unknown grandparent Malignant neoplasm Unknown mother Heart disease Unknown Advance Directives Advance Directive Response Recorded Date/ Time Advance Directives No May 13, 2018 7:03am Advance Directive Response Recorded Date/ Time Advance Directives No May 13, 2018 8:03am Chief Complaint and Reason for Visit Chief Complaint Family Hx Colon Canc er Chief Complaint Medicare Wellness Reason for Visit Benign prostatic hyp erplasia with lower urinary tract symptoms GERD (gastroesophageal reflux disease) Lumbar spondylosis ALEXANDRA (obstructive sleep apnea) Screening PSA (prostate specific antigen) Medicare annual wellness visit, subsequent Chief Complaint Admit Date 1 yr follow up June 22, 2024 8:5 3am Chief Complaint Admit Date 1 yr follow up June 22, 2024 8:5 3am heart racing when sleeping on left side July 28, 2024 10:32am Reason for Visit Admit Date GERD (gastroesophageal reflux disease) M arch 2024 8:53am ALEXANDRA (obstructive sleep apnea) July 10:32am Palpitations July 28, 2024 10: 32am Chief Complaint Admit Date 1 yr follow up June 22, 2024 8:5 3am heart racing when sleeping on left side July 28, 2024 10:32am Amb Documentation August 28, 2024 8:00a m [facility] f/u August 28, 2024 9:16a m Reason [...] (obstructive sleep apnea) August 28, 2024 9:16am Reason for Referral Specialty Diagnoses / Procedures Referred By Contjulio t Referred To Contact Diagnoses Venous stasis ulcer of left ankle limited to breakdown of skin, unspecified whether varicose veins present ([facility]) Procedures Xeroform 4x4 Catherine Ayoub, FIRE PROTECTION EQUIPMENT TECHNICIAN-POURED PIPE MAKER [address] [place] [address] Referral ID Status Reason Start Date Expiration Date V isits Requested Visits Authorized [id number] Pending Review 01/03/2024 01/02/2025 1 1 Specialty Diagnoses / Procedures Referred By Contjulio fong Referred To Contact Vascular Surgery Diagnoses Venous stasis ulcer of left ankle limited to breakdown of skin with varicose veins ([facility]) Catherine Ayoub, FIRE PROTECTION EQUIPMENT TECHNICIAN-POURED PIPE MAKER [address] [place] [address] [place] [address] [place] [address] [place] [address] Referral ID Status Reason Start Date Expiration Date Visits Requested Visits Authorized [id number] Pending Review Specialty Services Required 01/03/2024 01/02/2025 1 1 Additional Source Comments (unrecognized sect ion and content) No Status Records FoundNo Status Records FoundNo Status Records FoundNo Status Records FoundNo Status Records FoundNo Status Records FoundNo Status Records Found INFORMATION SOURCE (unrecogn ized section and content) DATE CREATED AUTHOR 07/12/2018 [facility] DATE CREATED AUTHOR AUTHOR'S ORGANIZ ATION 05/16/2022 [facility] DATE CREATED AUTHOR AUTHOR'S ORGANIZ ATION 06/05/2022 [facility] DATE CREATED AUTHOR AUTHOR'S ORGANIZ ATION 02/03/2024 [facility] DATE CREATED AUTHOR AUTHOR'S ORGANIZ ATION 04/17/2024 [facility] DATE CREATED AUTHOR AUTHOR'S ORGANIZ ATION 07/11/2024 [facility] EPIC DATE CREATED AUTHOR AUTHOR'S ORGANIZ ATION 09/02/2024 [facility] REASON FOR VISIT (unrecogniz ed section and content) Reason Comments Dressing Change Specialty Diagnoses / Procedures Referred By Contac t Referred To Contact Wound Care Diagnoses Venous stasis ulcer of left ankle limited to breakdown of skin, unspecified whether varicose veins present ([facility]) Morales Ramon DPM [address] [place] [address] [facility] [address] [place] [address] Referral ID Status Reason Start Date Expiration Date Visits Requested Visits Authorized [id number] Pending Review Specialty Services Required 11/27/2023 11/26/2024 1 1 Reason Comments Callus care See Nicole is a [age] y.o. male who presents for right foot Callous check. Patient relates he continues wound care for the left ankle. Procedure with vacsular 03/13/2024. SS: 14. Reason Comments Wound Check Specialty Diagnoses / Procedures Referred By Xiomy fong Referred To Contact Wound Care Diagnoses Venous stasis ulcer of left ankle limited to breakdown of skin, unspecified whether varicose veins present ([facility]) Morales Ramon DPM [address] [place] [address] Phone: tel: fax: [facility] [address] [place] [address] Phone: tel: fax: Referral ID Status Reason Start Date Expiration Date Visits Requested Visits Authorized [id number] Pending Review Specialty Services Required 11/27/2023 11/26/2024 1 1 Reason Comments Foot Callouses Established pt prese nts today for callus debridement. SS: 14 Reason Comments Wound Check Reason Comments Wound Check Specialty Diagnoses / Procedures Referred By Xiomy fong Referred To Contact Wound Care Diagnoses Venous stasis ulcer of left ankle limited to breakdown of skin, unspecified whether varicose veins present ([facility]) Morales Ramon DPM [address] [place] [address] Phone: tel: fax: [facility] [address] [place] [address] Phone: tel: fax: Referral ID Status Reason Start Date Expiration Date Visits Requested Visits Authorized [id number] Pending Review Specialty Services Required 11/27/2023 11/26/2024 1 1 Reason Comments Varicose Veins New patient-testing done- goes to wound care for wound on left ankle Specialty Diagnoses / Procedures Referred By Xiomy t Referred To Contact Vascular Surgery Diagnoses Venous stasis ulcer of left ankle limited to breakdown of skin with varicose veins ([facility]) Catherine Ayoub, FIRE PROTECTION EQUIPMENT TECHNICIAN-POURED PIPE MAKER [address] [place] [address] Phone: tel: fax: Lan Cho MD [address] [facility] [address] [place] [address] Phone: tel:[phone] fax: Referral ID Status Reason Start Date Expiration Date Visits Requested Visits Authorized [id number] Pending Review Specialty Services Required 01/03/2024 01/02/2025 1 1 Reason Onset Date Comments Med Refill 02/28/2024 Reason Onset Date Comments procedure time change 02/28/2024 Reason Onset Date Comments cancel procedure 03/10/2024 Reason Comments Callus care See Nicole is a [age] y.o. male. Established pt presents today for callus debridement. SS: 14 Care Teams (unrecognized sec tion and content) Team Status: Inactive Member Role Status Dates Gutierrez Larry DO Primary Care Provider Active Reji Roy MD Attending Provider Active Team Status: Active Member Role Status Dates Gutierrez Larry DO Primary Care Provider Active Team Status: Inactive Member Role Status Dates Gutierrez Larry DO Primary Care Provide r, Attending Provider Active Start: September 16, 2023 End: September 16, 2023 Production Broaching Machine Operator Relationship Specialty Start Date End Date Gutierrez Larry MD [address] [place] [phone] PCP - General Internal Medicine 02/18/23 Production Broaching Machine Operator Relationship Specialty Start Date End Date Gutierrez Larry MD [address] [place] [facility] [place] [id number] PCP - General Internal Medicine 02/18/23 Production Broaching Machine Operator Relationship Specialty Start Date End Date Gutierrez Larry DO [address] [place] [address] PCP - General Internal Medicine 07/26/20 Production Broaching Machine Operator Relationship Specialty Start Date End Date Gutierrez Larry MD [address] [place] [facility] [id number] PCP - General Internal Medicine 02/18/23 Production Broaching Machine Operator Relationship Specialty Start Date End Date Gutierrez Larry DO [address] [place] [address] PCP - General Internal Medicine 07/26/20 Production Broaching Machine Operator Relationship Specialty Start Date End Date Gutierrez Larry DO [address] [place] [address] PCP - General Internal Medicine 07/26/20 Production Broaching Machine Operator Relationship Specialty Start Date End Date Gutierrez Larry DO [address] [place] [address] PCP - General Internal Medicine 07/26/20 Production Broaching Machine Operator Relationship Specialty Start Date End Date Gutierrez Larry DO [address] [place] [address] PCP - General Internal Medicine 07/26/20 Production Broaching Machine Operator Relationship Specialty Start Date End Date Gutierrez Larry DO [address] [place] [address] PCP - General Internal Medicine 07/26/20 Production Broaching Machine Operator Relationship Specialty Start Date End Date Gutierrez Larry DO [address] [place] [address] PCP - General Internal Medicine 07/26/20 Production Broaching Machine Operator Relationship Specialty Start Date End Date Gutierrez Larry DO [address] [place] [address] PCP - General Internal Medicine 07/26/20 Production Broaching Machine Operator Relationship Specialty Start Date End Date Gutierrez Larry DO [address] [place] [id number] PCP - General Internal Medicine 07/26/20 Production Broaching Machine Operator Relationship Specialty Start Date End Date Gutierrez Larry DO [address] [place] [id number] PCP - General Internal Medicine 07/26/20 Production Broaching Machine Operator Relationship Specialty Start Date End Date Gutierrez Larry DO [address] [place] [id number] PCP - General Internal Medicine 07/26/20 Production Broaching Machine Operator Relationship Specialty Start Date End Date Gutierrez Larry DO [address] [place] [id number] PCP - General Internal Medicine 07/26/20 Team Status: Inactive Member Role Status Dates Gutierrez Larry DO Primary Care Provider Active Start: June 22, 2024 End: June 22, 2024 Ottoniel Flores APRN Attending Provider Active Start: June 22, 2024 End: June 22, 2024 Production Broaching Machine Operator Relationship Specialty Start Date End Date Gutierrez Larry MD [address] [place] [phone] PCP - General Internal Medicine 02/18/23 Team Status: Inactive Member Role Status Dates Gutierrez Larry , DO Primary Care Provide r, Attending Provider Active Start: July 28, 2024 End: July 28, 2024 Team Status: Active Member Role Status Dates Gutierrez Larry , DO Primary Care Provide r, Attending Provider Active Start: July 30, 2024 Team Status: Active Member Role Status Dates Gutierrez Larry , DO Primary Care Provider Active Start: August 19, 2024 Anu Cintron MD Attending Provider Active St art: August 19, 2024 Team Status: Active Member Role Status Dates Gutierrez Larry , DO Primary Care Provider Active Start: August 28, 2024 Roseanne Blanchard CMA Attending Provider Active Start: August 28, 2024 Team Status: Inactive Member Role Status Dates Gutierrez Larry , DO Primary Care Provide r, Attending Provider Active Start: August 28, 2024 End: August 28, 2024 Goals (unrecognized section and content) Goals may be documented in a n alternate section FOR RECORDS PERTAINING TO PATIENTS WHO ARE OR HAVE BEEN ENROLLED IN A CHEMICAL DEPENDENCY/SUBSTANCEABUSE PROGRAM, SOME INFORMATION MAY BE OMITTED. This clinical summary was aggregated from multiple sources. Caution should be exercised in using it in the provision of clinical care. This summary normalizes information from multiple sources, and as a consequence, information in this document may materially change the coding, format and clinical context of patient data. In addition, data may be omitted in some cases. CLINICAL DECISIONS SHOULD BE BASED ON THE PRIMARY CLINICAL RECORDS. [facility]. provides no warranty or guarantee of the accuracy or completeness of information in this document.
[2024-09-14] MEDS: REGADENOSON 0.4 MG/5 ML SYRINGE IV (09:11)
--- NOTE | 2024-09-14 09:12 | PC.NURSE ---
Nursing Note Cardiac Stress Test Reviewed: Medication, allergies and patient history reviewed. Stress Test: [x ] Patient tolerated stress test well. [ ] Patient unable to tolerate walking on treadmill. Switched to Lexiscan stress test. [x ] No chest pain noted per patient [ ] Chest pain that resolved prior to leaving stress lab. [x ] No dyspnea noted. [ ] Dyspnea that resolved prior to leaving stress lab. [x ] Patient left stress lab asymptomatic and hemodynamically stable. [ ] Patient taken to the Emergency Room due to non-resolving symptoms following stress test. [ ] Patient achieved target heart rate. [ ] Patient unable to achieve target heart rate. [ ] Aminophylline administered as reversal agent to Lexiscan (Regadenoson). [ ] Nitro administered. Nursing Comments:Pt had Lexiscan test done. Overall body heaviness after Keila given that resolved within 3 minutes. NO CP or SOB noted. Pt ambulated to cafeteria with SO and tech for breakfast prior to images.
== END 2024-09-14 08:12 | disposition home or self-care (01) ==
LOC: CARD 08:11
PROVIDERS: PCP Internal Medicine; Visit Provider Nurse Practitioner Family
DX: I48.4 Atypical atrial flutter (principal); I49.3 Ventricular premature depolarization; R06.09 Other forms of dyspnea
CPT/HCPCS: 78452; 93017; A9500; J2785

== ENCOUNTER 2024-09-15 08:19 | Outpatient (OUT) | payer MEDICARE, SELFPAY ==
--- OUTSIDE RECORDS SUMMARY | 2024-09-03 21:49 | XMS_ITS | Continuity of Care Document ---
Author Organization [facility] Address [address] [place] [address] Phone Support Name Relationship Address Phone Codi Kendall Emergency Contact [address] [place] [address] Codi Kendall Caregiver [address] [facility] [address] Gutierrez Morton DO Personal Relationship [address] [place] [address] Ottoniel Flores APRN Personal Relationship [address] [facility] [place] [address] Damian Cintron MD Personal Relationship [address] [place] [address] Roseanne Blanchard CMA Personal Relationship Unknown Unavailable Care Teams Patient Care Team Team Status: Active Member Role Status Dates Gutierrez Morton DO Primary Care Provider Active Visit Care Team Team Status: Inactive Member Role Status Dates Gutierrez Morton DO Primary Care Provider Active Start: June 22, 2024 End: June 22, 2024 Ottoniel Flores APRN Attending Provider Active Start: June 22, 2024 End: June 22, 2024 Visit Care Team Team Status: Inactive Member Role Status Dates Gutierrez Morton DO Primary Care Provide r, Attending Provider Active Start: July 28, 2024 End: July 28, 2024 Visit Care Team Team Status: Active Member Role Status Dates Gutierrez Morton DO Primary Care Provide r, Attending Provider Active Start: July 30, 2024 Visit Care Team Team Status: Active Member Role Status Dates Gutierrez Morton DO Primary Care Provider Active Start: August 19, 2024 Damian Cintron MD Attending Provider Active St art: August 19, 2024 Patient Care Team Team Status: Active Member Role Status Dates Gutierrez Morton DO Primary Care Provider Active Start: August 28, 2024 Roseanne Blanchard CMA Attending Provider Active Start: August 28, 2024 Patient Care Team Team Status: Inactive Member Role Status Dates Gutierrez Morton DO Primary Care Provide r, Attending Provider Active Start: August 28, 2024 End: August 28, 2024 Chief Complaint and Reason for Visit Chief Complaint Admit Date 1 yr follow up June 22, 2024 8:5 3am heart racing when sleeping on left side July 28, 2024 10:32am Amb Documentation August 28, 2024 8:00a m [facility] f/u August 28, 2024 9:16a m Reason for Visit Admit Date GERD (gastroesophageal reflux disease) M arch 2024 8:53am Elevated BP without diagnosis of hyperte nsion July 28, 2024 10:32am ALEXANDRA (obstructive sleep apnea) July 10:32am Palpitations July 28, 2024 10: 32am Atrial flutter August 28, 2024 9:16a m GERD (gastroesophageal reflux disease) M ay 2024 9:16am Hypertension August 28, 2024 9:16a m NSVT (nonsustained ventricular tachycard ia) August 28, 2024 9:16am Obesity August 28, 2024 9:16a m ALEXANDRA (obstructive sleep apnea) August 28, 2024 9:16am Allergies, Adverse Reactions, Alerts Allergen Type Severity Reaction Last Updated Verified Status Corticosteroids (Glucocorticoids) Allergy Unknown Unknown Reaction August 28, 2024 9:20am Yes Active doxycycline Allergy Unknown Worsened the eczema August 28, 2024 9:20am Yes Active prednisone Allergy Unknown Rash August 28, 2024 9:20am Yes Active sulfamethoxazole Allergy Unknown Unknown Reaction August 28, 2024 9:20am Yes Active tetracycline Allergy Unknown Unknown Reaction August 28, 2024 9:20am Yes Active trimethoprim Allergy Unknown Unknown Reaction August 28, 2024 9:20am Yes Active Sulfa (Sulfonamide Antibiotics) Allergy Unknown Rash August 28, 2024 9:20am Yes Active Social History Smoking Status Status Start Date End Date Date of Observa tion Ex-smoker (finding) May 09, 2022 10:10am Observation Status Observation Response Date of Response Patient Sex Male August 28, 2024 1 0:12am Assigned Sex Male [birth year] 51 Family History Relationship Condition Age at Onset Recorded Date/T vida father Abdominal aortic aneurysm (AAA) Unknown Malignant neoplasm of colon Unknown Chronic obstructive pulmonary disease Unk nown Hypertension Unknown Malignant neoplasm Unknown Unknown mother Hypertension Unknown Diaphragmatic hernia Unknown brother Acquired immunodeficiency syndrome Unknow n Hypertension Unknown Peripheral arterial disease Unknown Cardiac defibrillator in place Unknown Unknown son Epilepsy Unknown grandparent Malignant neoplasm Unknown mother Heart disease Unknown Hypertension Unknown Problems Active Problems Medical Problem Onset Date Status Comments ALEXANDRA (obstructive sleep apnea) Active Screening PSA (prostate spec ific antigen) Active Palpitations Active Atrial flutter Active Peripheral neuropathy Active Benign prostatic hyperplasia with lower urinary tract symptoms Active Elevated BP without diagnosi s of hypertension Active Echo: LVEF 55%, BARRY, enlarged RV w/ normal function, RVSP 41 - 08/2024 GERD (gastroesophageal reflu x disease) Active Hypertension Active Lumbar spondylosis Active Obesity Active NSVT (nonsustained ventricul ar tachycardia) Active Holter: 07/2024- fast est rate 211, slowest rate 40- Ventricular ectopy burden < 1%- 9 episodes of VT w/ longest duration of 10 beats- SVE burden of 6%- 1,158 PSVT w/ fastest rate 211 bpm and longest duration 6min 11sec. Inactive/Resolved Problems Medical Problem Onset Date Status Comments Dysphagia Resolved Problem List cl mani-up per request of Phys. EHR Cmte Lumbar stenosis with neuroge jessie claudication Resolved Problem List clean-u p per request of Phys. EHR Cmte Medications Medication Status Dose Units Route Directions Qty Days St art Date Stop Date End Date Instructions Minocycline 100 mg capsule Discont inued 0 .ROUTE .COMPLEX June 10, 2023 1:35pm Augus t 2023 9:58a m TAKE 1 CAPSULE BY MOUTH EVERY DAY Minocycline 100 mg capsule Discont inued 0 .ROUTE .COMPLEX December 05, 2023 9:58am July 28, 2024 10:57 am TAKE 1 CAPSULE BY MOUTH EVERY DAY Amoxicillin 500 mg capsule Discont inued 2000 MG PO As Directed 4 Novemb er 2023 1:00am Novem rika 2023 1:29p m Amoxicillin 500 mg capsule Discont inued 2000 MG PO As Directed Novemb er 2023 1:29pm July 27, 2024 10:00 pm Omeprazole 40 mg capsule,patrick yed release(/E [place]) Active 40 MG PO Daily 90 90 August 04, 2024 8:47am Apixaban 5 mg tablet Active 5 MG PO Twice daily 60 30 August 23, 2024 12:00a m Metoprolol Succinate 25 mg tablet extended release 24 hr Active 25 MG PO Daily 30 30 August 23, 2024 12:00a m Oxycodone-Ac etaminophen 5-325 mg tablet Discont inued 2 TAB PO Q6H as needed for Pain Novemb er 2018 1:00am Novem rika 2018 10:19 am Lactobacillu s Comb No.10 (Probiotic) 20 billion cell Capsule Discont inued 1 TAB PO Daily Novemb er 2018 1:00am September 10, 2019 11:15 am Digestive Advantage Melatonin 5 mg Tablet,Che[place] ble Discont inued 10 MG PO Bedtime as needed for Sleep Novemb er 2018 1:00am September 16, 2023 10:10 am Cyclobenzapr ine 10 mg tablet Discont inued 10 MG PO Three times daily as needed for back spasms 50 Novemb er 2018 1:00am September 10, 2019 11:14 am Oxycodone 5 mg capsule Discont inued 5 - 10 MG PO Q6H as needed for pain 60 8 Novemb er 2018September 10, 2019 11:15 am Neuriva Active 1 CAP PO Daily at bedtime October 12, 2019 12:00a m Cephalexin (Keflex) 500 mg capsule Discont inued 500 MG PO Q8H October 19, 2019 12:00a m Octob er 2019 5:09p m Oxycodone 5 mg capsule Discont inued 5 - 10 MG PO Q6H as needed for pain 30 8 October 19, 2019 Febru adeel 2021 4:10p m Cephalexin (Keflex) 500 mg capsule Discont inued 500 MG PO Q8H as needed for eczema flair Octobe r 2019 5:09pm Febru adeel 2021 4:10p m Minocycline 100 mg capsule Discont inued 100 MG PO Twice daily Februa ry 2021 1:00am June 10, 2023 1:37p m Omeprazole 40 mg capsule,patrick yed release(DR/E C) Discont inued 40 MG PO Daily 84 84 Februa ry 2021 1:00am June 12, 2023 4:10p m Multivitamin Tablet,Che[place] ble Discont inued 1 TAB PO Daily September 10, 2019 12:00a m Octob er 2019 5:08p m Tizanidine 4 mg tablet Active 4 MG PO Daily at bedtime as needed for muscle spasticity 10 September 16, 2023 12:00a m Azithromycin 250 mg tablet Discont inued 250 MG PO .QOD July 28, 2024 12:00a m August 23, 2024 6:35p m Ammonium Lactate 12 % cream Discont inued APPLIC TOPICA L July 28, 2024 12:00a m August 28, 2024 9:25a m Omeprazole 40 mg capsule,patrick yed release(DR/E C) Discont inued 40 MG PO Daily 90 90 June 12, 2023 4:07pm August 04, 2024 8:47a m Azithromycin (Zithromax) 250 mg tablet Active 250 MG PO .QOD August 28, 2024 12:00a m start on day 2 of therapy Immunizations Immunization Event Date Not Given Reason Dose Number 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 Lot Number Vaccine Information Statement (VIS) Detail Pneumococcal Conjugate Vaccine, 13 valent May 13, 2018 Medical Equipment Device Date Implanted Device Details STRATOFUSE DBM 10CC March 02, 2019 STRATOFUSE DBM 10CC March 02, 2019 STRATOFUSE DBM 5CC March 02, 2019 XLIF 3 LEVEL MAS REDUCTION March 02, 2019 Spinal fusion graft kit March 02, 2019 LACHELLE: ()[id number] Issuing Agency: [employer] Device Id: [id number] Expiration Date: 2020-01-06 Lot Number: [id number] Spinal fusion graft kit March 02, 2019 LACHELLE: ()[id number] Issuing Agency: [employer] Device Id: [id number] Expiration Date: 2020-01-06 Lot Number: [id number] Metallic spinal fusion cage, non-sterile March 02, 2019 LACHELLE: ()[id number] Issuing Agency: [facility] Device Id: [id number] Metallic spinal fusion cage, non-sterile March 02, 2019 LACHELLE: ()[id number] Issuing Agency: [facility] Device Id: [id number] Metallic spinal fusion cage, non-sterile March 02, 2019 LACHELLE: ()[id number] Issuing Agency: [facility] Device Id: [id number] Bone-screw internal spinal fixation system, non-sterile March 02, 2019 LACHELLE: ()[id number] Issuing Agency: [facility] Device Id: [id number] Bone-screw internal spinal fixation system, non-sterile March 02, 2019 LACHELLE: ()[id number] Issuing Agency: [facility] Device Id: [id number] Bone-screw internal spinal fixation system, non-sterile March 02, 2019 LACHELLE: ()[id number] Issuing Agency: [facility] Device Id: [id number] Bone-screw internal spinal fixation system, non-sterile March 02, 2019 LACHELLE: ()[id number] Issuing Agency: [facility] Device Id: [id number] Bone-screw internal spinal fixation system, non-sterile March 02, 2019 LACHELLE: ()[id number] Issuing Agency: [facility] Device Id: [id number] Bone-screw internal spinal fixation system, non-sterile March 02, 2019 LACHELLE: ()[id number] Issuing Agency: [facility] Device Id: [id number] Bone-screw internal spinal fixation system, non-sterile March 02, 2019 LACHELLE: ()[id number] Issuing Agency: [facility] Device Id: [id number] Bone-screw internal spinal fixation system, non-sterile March 02, 2019 LACHELLE: ()[id number] Issuing Agency: [facility] Device Id: [id number] Bone-screw internal spinal fixation system, non-sterile March 02, 2019 LACHELLE: ()[id number] Issuing Agency: [facility] Device Id: [id number] Bone-screw internal spinal fixation system, non-sterile March 02, 2019 LACHELLE: ()[id number] Issuing Agency: [facility] Device Id: [id number] Bone-screw internal spinal fixation system, non-sterile March 02, 2019 LACHELLE: ()[id number] Issuing Agency: [facility] Device Id: [id number] Bone-screw internal spinal fixation system, non-sterile March 02, 2019 LACHELLE: ()[id number] Issuing Agency: [facility] Device Id: [id number] Bone-screw internal spinal fixation system, non-sterile March 02, 2019 LACHELLE: ()[id number] Issuing Agency: [facility] Device Id: [id number] Bone-screw internal spinal fixation system, non-sterile March 02, 2019 LACHELLE: ()[id number] Issuing Agency: [facility] Device Id: [id number] Bone-screw internal spinal fixation system, non-sterile March 02, 2019 LACHELLE: ()[id number] Issuing Agency: [facility] Device Id: [id number] Bone-screw internal spinal fixation system, non-sterile March 02, 2019 LACHELLE: ()[id number] Issuing Agency: [facility] Device Id: [id number] Bone-screw internal spinal fixation system, non-sterile March 02, 2019 LACHELLE: ()[id number] Issuing Agency: [facility] Device Id: [id number] Bone-screw internal spinal fixation system, non-sterile March 02, 2019 LACHELLE: ()[id number] Issuing Agency: [facility] Device Id: [id number] Relevant Diagnostic Tests and/or Laboratory Data Laboratory Results Test Date/Time Result Interpretation Reference Range Result Comment Performing Site Thyroid Stimulating Hormone 3rd Gen July 30, 2024 8:42am 3.311 u[iU]/m L 0.358-3.74 0 Anion Gap July 30, 2024 8:42am 9.7 Basophils # (Auto) July 30, 2024 8:42am 0.1 10 3/uL 0.0-0.1 B-Type Natriuretic Peptide August 19, 2024 6:49pm 147.0 pg/mL <=900.0 Troponin I High Sensitivity August 19, 2024 6:49pm 6.7 pg/mL 4.0-76.1 CUT-OFF POINTS HAVE BEEN ESTABLISHED BASED ON THE FOURTHUNIVERSAL DEFINITION OF MYOCARDIAL INFARCTION. THE UPPERREFERENCE LIMIT (URL) OF TROPONIN, DEFINED THE 99THPERCENTILE OF cTnI DISTRIBUTION IN A REFERENCE POPULATION,HAS BEEN CONFIRMED THE DECISION THRESHOLD FOR MIDIAGNOSIS.99TH PERCENTILE = 76.2 PG/MLNOTE: HIGH-SENSITIVITY TROPONIN ASSAY IS NOT INTENDED TO BEUSED IN ISOLATION BUT SHOULD BE INTERPRETED IN CONJUNCTIONWITH OTHER DIAGNOSTIC AND CLINICAL INFORMATION. Anion Gap August 19, 2024 6:49pm 10.4 D-Dimer Quantitative (PE/DVT) August 19, 2024 6:49pm 0.51 mg/L FEU <=0.59 Increases in D-Dimer concentration observed withthromboembolic events can be variable due to localization,size, and age of the thrombus. Therefore, a thromboembolicevent cannot be diagnosed with certainty on the basis of thereference range. D-Dimers may also be elevated for a varietyof disorders including advanced age, , coronarydisease, cancer, liver disease, infection, inflammation,hemato ma, DIC, trauma, post-surgery, diabetes, thrombolyticor anticoagulant therapy, stress, and generalizedhospital ization. Basophils # (Auto) August 19, 2024 6:49pm 0.1 10 3/uL 0.0-0.1 BUN/Creatinin e Ratio July 30, 2024 8:42am 12.2 Basophils (%) (Auto) July 30, 2024 8:42am 1.4 % 0.2-2.0 BUN/Creatinin e Ratio August 19, 2024 6:49pm 13.8 Basophils (%) (Auto) August 19, 2024 6:49pm 1.5 % 0.2-2.0 Blood Urea Nitrogen July 30, 2024 8:42am 15.0 mg/dL 7.0-18.0 Eosinophils # (Auto) July 30, 2024 8:42am 0.4 10 3/uL 0.0-0.7 Blood Urea Nitrogen August 19, 2024 6:49pm 17.0 mg/dL 7.0-18.0 Eosinophils # (Auto) August 19, 2024 6:49pm 0.2 10 3/uL 0.0-0.7 Calcium Level July 30, 2024 8:42am 8.7 mg/dL 8.5-10.1 Eosinophils (%) (Auto) July 30, 2024 8:42am 4.6 % 0.9-7.0 Calcium Level August 19, 2024 6:49pm 8.8 mg/dL 8.5-10.1 Eosinophils (%) (Auto) August 19, 2024 6:49pm 2.5 % 0.9-7.0 Chloride Level July 30, 2024 8:42am 105 mmol/L 98-107 Hematocrit July 30, 2024 8:42am 41.5 % Below low normal 42.0-54.0 Chloride Level August 19, 2024 6:49pm 103 mmol/L 98-107 Hematocrit August 19, 2024 6:49pm 41.2 % Below low normal 42.0-54.0 Carbon Dioxide Level July 30, 2024 8:42am 29.3 mmol/L 21.0-32.0 Hemoglobin July 30, 2024 8:42am 13.5 g/dL Below low normal 14.0-18.0 Carbon Dioxide Level August 19, 2024 6:49pm 29.4 mmol/L 21.0-32.0 Hemoglobin August 19, 2024 6:49pm 13.6 g/dL Below low normal 14.0-18.0 Creatinine July 30, 2024 8:42am 1.23 mg/dL 0.70-1.30 Immature Granulocyte # (Auto) July 30, 2024 8:42am 0.03 10 3/uL 0.00-0.03 Creatinine August 19, 2024 6:49pm 1.23 mg/dL 0.70-1.30 Immature Granulocyte # (Auto) August 19, 2024 6:49pm 0.02 10 3/uL 0.00-0.03 Estimated GFR () July 30, 2024 8:42am >60 >=60 mL/min/1.7 3m 2 Immature Granulocyte % (Auto) July 30, 2024 8:42am 0.3 % 0.0-0.5 Estimated GFR () August 19, 2024 6:49pm >60 >=60 mL/min/1.7 3m 2 Immature Granulocyte % (Auto) August 19, 2024 6:49pm 0.2 % 0.0-0.5 Estimated GFR (Non- July 30, 2024 8:42am 58 Below low normal >=60 mL/min/1.7 3m 2 Lymphocytes # (Auto) July 30, 2024 8:42am 1.5 10 3/uL 1.2-3.8 Estimated GFR (Non- August 19, 2024 6:49pm 58 Below low normal >=60 mL/min/1.7 3m 2 Lymphocytes # (Auto) August 19, 2024 6:49pm 1.9 10 3/uL 1.2-3.8 Glucose Level July 30, 2024 8:42am 104 mg/dL 74-106 Lymphocytes (%) (Auto) July 30, 2024 8:42am 17.2 % Below low normal 20.5-60.0 Glucose Level August 19, 2024 6:49pm 94 mg/dL 74-106 Lymphocytes (%) (Auto) August 19, 2024 6:49pm 20.4 % Below low normal 20.5-60.0 Potassium Level July 30, 2024 8:42am 4.0 mmol/L 3.5-5.1 Mean Corpuscular Hemoglobin July 30, 2024 8:42am 30.1 pg 25.9-34.0 Potassium Level August 19, 2024 6:49pm 3.8 mmol/L 3.5-5.1 Mean Corpuscular Hemoglobin August 19, 2024 6:49pm 30.1 pg 25.9-34.0 Sodium Level July 30, 2024 8:42am 140 mmol/L 136-145 Mean Corpuscular Hemoglobin Concent July 30, 2024 8:42am 32.5 g/dL 29.9-35.2 Sodium Level August 19, 2024 6:49pm 139 mmol/L 136-145 Mean Corpuscular Hemoglobin Concent August 19, 2024 6:49pm 33.0 g/dL 29.9-35.2 Mean Corpuscular Volume July 30, 2024 8:42am 92.4 fL 80.0-94.0 Mean Corpuscular Volume August 19, 2024 6:49pm 91.2 fL 80.0-94.0 Monocytes # (Auto) July 30, 2024 8:42am 0.5 10 3/uL 0.3-0.8 Monocytes # (Auto) August 19, 2024 6:49pm 0.6 10 3/uL 0.3-0.8 Monocytes (%) (Auto) July 30, 2024 8:42am 5.8 % 1.7-12.0 Monocytes (%) (Auto) August 19, 2024 6:49pm 6.7 % 1.7-12.0 Mean Platelet Volume July 30, 2024 8:42am 8.3 fL Below low normal 9.5-13.5 Mean Platelet Volume August 19, 2024 6:49pm 8.4 fL Below low normal 9.5-13.5 Neutrophils # (Auto) July 30, 2024 8:42am 6.2 10 3/uL 1.4-6.5 Neutrophils # (Auto) August 19, 2024 6:49pm 6.3 10 3/uL 1.4-6.5 Neutrophils (%) (Auto) July 30, 2024 8:42am 70.7 % 43.0-75.0 Neutrophils (%) (Auto) August 19, 2024 6:49pm 68.7 % 43.0-75.0 Platelet Count July 30, 2024 8:42am 235 10 3/uL 150-450 Platelet Count August 19, 2024 6:49pm 244 10 3/uL 150-450 Red Blood Count July 30, 2024 8:42am 4.49 10 6/uL Below low normal 4.70-6.10 Red Blood Count August 19, 2024 6:49pm 4.52 10 6/uL Below low normal 4.70-6.10 Red Cell Distribution Width July 30, 2024 8:42am 15.8 % Above high normal 11.0-15.0 Red Cell Distribution Width August 19, 2024 6:49pm 16.1 % Above high normal 11.0-15.0 Corrected White Blood Count July 30, 2024 8:42am 8.8 10 3/uL 4.0-11.0 Corrected White Blood Count August 19, 2024 6:49pm 9.2 10 3/uL 4.0-11.0 Vital Signs Vital Reading Result Reference Range Collection Date/Time Height 78 [in_i] June 22 9:00am Weight 141.97 kg June 22 9:00am Heart Rate 63 /min 60-100 June 22 9:02am BP Systolic 221 mm[Hg] 100-140 June 22 9:02am BP Diastolic 124 mm[Hg] 60-100 June 22 9:02am BMI (Body Mass Index) 36.1 kg/m2 June 22, 2024 9:00am Height 78 [in_i] July 28 10:58am Weight 142.20 kg July 28 10:58am Heart Rate 65 /min 60-100 July 28 10:58am Respiratory rate 12 /min 12-24 July 28, 2024 10:58am BP Systolic 146 mm[Hg] 100-140 July 28 10:58am BP Diastolic 88 mm[Hg] 60-100 July 28 10:58am BMI (Body Mass Index) 36.2 kg/m2 July 28, 2024 10:58am Height 78 [in_i] August 28, 2024 9:26am Weight 140.84 kg August 28, 2024 9:26am Heart Rate 66 /min 60-100 August 28, 2024 9:26am Respiratory rate 12 /min 12-24 August 28, 2 025 9:26am BP Systolic 117 mm[Hg] 100-140 August 28, 2024 9:26am BP Diastolic 77 mm[Hg] 60-100 August 28, 2024 9:26am BMI (Body Mass Index) 35.9 kg/m2 August 282024 9:26am Advance Directives Advance Directive Response Recorded Date/ Time Advance Directives No May 13, 2018 8:03am Insurance Providers Guarantor Xiomara Breen Address [address] [facility] [address] Contact Info. Home Phone: Payer Policy Id Coverage Id Subscriber's Name Subscriber Id Effective Date Expiration Date Medicare [id number] Xiomara Breen [id number] Encounters Encounter Location(s) Arrival/Admit Date Discharge/Depart Date Provider(s) Departed Physician/Prov ider Office Visit [facility] Physician [facility] June 22, 2024 8:53am June 22, 2024 9:13am Xiomara Razo BEAUTY SALES ADVISOR Departed Physician/Prov ider Office Visit [facility] July 28, 2024 10:32am July 28, 2024 11:27am Gutierrez Morton DO Non-patient / Non-visit [facility] Physician [facility] [employer] July 30, 2024 8:42am Gutierrez Morton DO Non-patient / Non-visit [facility] Physician [facility] August 19, 2024 6:49pm Damian Cintron MD Non-patient / Non-visit [facility] Physician [facility] August 28, 2024 8:00am Roseanne Blanchard CMA Departed Physician/Prov ider Office Visit [facility] August 28, 2024 9:16am August 28, 2024 10:12am Gutierrez Morton DO Recent Diagnosis Onset Date Admit Date GERD (gastroesophageal reflux disease) June 22, 2024 8:53am Elevated BP without diagnosis of hypertension July 28, 2024 10:32am ALEXANDRA (obstructive sleep apnea) Ap ril 2024 10:32am Palpitations July 28, 2024 10:32am Atrial flutter August 28, 2024 9 :16am GERD (gastroesophageal reflux disease) August 28, 2024 9:16am Hypertension August 28, 2024 9 :16am NSVT (nonsustained ventricular tachycardia) August 28, 2024 9:16am Obesity August 28, 2024 9 :16am ALEXANDRA (obstructive sleep apnea) Ma y 2024 9:16am Assessments Diagnosis Onset Date Resolution Status Admit Date GERD (gastroesophageal reflu x disease) acute June 22, 2024 8:53am Elevated BP without diagnosi s of hypertension acute July 28, 2024 10:32am ALEXANDRA (obstructive sleep apnea) acute July 28, 2024 10:32am Palpitations acute July 28, 2024 10:32am Atrial flutter acute August 28, 2024 9:16am GERD (gastroesophageal reflu x disease) acute August 28, 2024 9 :16am Hypertension acute August 28 9:16am NSVT (nonsustained ventricul ar tachycardia) acute August 28, 2024 9 :16am Obesity acute August 28, 2024 9:16am ALEXANDRA (obstructive sleep apnea) acute August 28, 2024 9:16am Plan of Treatment Author Gutierrez [facility] Authored July 28, 2024 11: 37am Instructed to hydrate and av oid stimulants: Caffeine, Sudafed and Alcohol Check labs: CBC, BMP and TSH Check Holter and Echo to define arrhythmia and r/o cardiomyopathy. ER for sustained palpitations or symptoms of CP, SOB and lightheadedness This patient is aware of the benefits associated with treatment of ALEXANDRA. With continued use, the patient is reducing the risk for ND, CVA, HTN, cardiac dysrhythmias and sudden cardiac deaths. With continued use, the patient is also reducing morning headaches, daytime somnolence, fatigue and obesity. T Noncompliant Denies snoring or daytime somnolence Aware may trigger cardiac arrhythmias I have instructed this patient to consume a healthy, low-fat, low-salt diet. I have also encouraged them to continue exercise with weight loss to achieve/maintain a BMI < 30. I have instructed this patient on the correct procedure for obtaining home BP measurements: - rest for 5 minutes w/o talking. - positioned w/ feet on floor and arms supported. - average best 2/3 readings w/ goal < 135/85. - update office w/ home readings in 2 weeks. Author Ottoniel Flores [facility] Authored June 22, 2024 12: 10pm A 73-year-old male patient w ith diagnosis of GERD Continue omeprazole 40 mg once daily as patient reflux has been well-controlled. Patient negative for breakthrough or alarm findings With maintenance of medication regimen and good control of symptoms follow-up in 1 year Author Gutierrez [facility] Authored August 27, 2024 8:25p m I have instructed this patie nt to consume a healthy, low-fat, low-salt diet. I have also encouraged them to continue exercise with weight loss to achieve/maintain a BMI < 30. I have instructed this patient on the correct procedure for obtaining home BP measurements: - rest for 5 minutes w/o talking. - positioned w/ feet on floor and arms supported. - average best 2/3 readings w/ goal < 135/85. Update office w/ home readings in 2 weeks. Continue Metoprolol without interruption This patient is rhythm controlled. I instructed them to continue anticoagulation to prevent thromboembolic events. I instructed them to monitor their BP, HR and daily weights. I also instructed them to monitor for bleeding complications, including epistaxis, hematuria, melena and hematochezia. Echo: LVEF 55%, BARRY, enlarged RV w/ normal function, RVSP 41 - 08/2024 Continue Eliquis and Metoprolol without interruption Avoid stimulants and hydrate. Holter: 07/2024 - fastest rate 211, slowest rate 40 - Ventricular ectopy burden < 1% - 9 episodes of VT w/ longest duration of 10 beats - SVE burden of 6% - 1,158 PSVT w/ fastest rate 211 bpm and longest duration 6min 11sec. Echo: LVEF 55%, BARRY, enlarged RV w/ normal function, RVSP - 08/2024 Continue Metoprolol without interruption This patient is aware of the benefits associated with treatment of ALEXANDRA. With continued use, the patient is reducing the risk for ND, CVA, HTN, cardiac dysrhythmias and sudden cardiac deaths. With continued use, the patient is also reducing morning headaches, daytime somnolence, fatigue and obesity. This patient is compliant with treatment, wearing the equipment every night for greater than 4 hours. This patient has been instructed to continue use of PAP for treatment of ALEXANDRA. I have instructed this patient to avoid lying flat after eating. I have also recommended to avoid eating 2 hours prior to bedtime. They were also informed that smaller, frequent meals may be better tolerated. I have discussed additional treatment options for persistent symptoms, which includes: weight loss, H2 blockers and PPI. I have also instructed them to notify the office with any pain or difficulty swallowing. Continue Omeprazole without interruption I have instructed this patient on a low-fat, high-fiber diet. I have also instructed them to reduce calories, portions sizes, sweet drinks and snacks. I have also recommended they exercise for 30 minutes, 3-5 times weekly. They are aware of the comorbid conditions associated with excessive weight: Diabetes, HTN, Hyperlipidemia, CAD and arthritis. Future Tests Future scheduled test information is unavailable Pending Tests Test Name Ordered Date Scheduled Date ECH echo transthoracic July 28, 2024 11:25am CA holter monitor recording July 28, 2024 11: 25am Future Visits Future appointment information is unavailable Referrals to Other Providers Referral information is unavailable Future Procedures Procedure Name Ordered Date Scheduled Date Basic Metabolic Panel July 28, 2024 11:25am Future Medications Future medication information is unavailable Patient Instructions Patient instructions are unavailable
--- NOTE | 2024-09-14 10:42 | PM.STRESS ---
Stress Test Stress Test Allergies Allergy/AdvReac Type Severity Reaction Status Date / Time doxycycline Allergy Mild Hives Verified 08/19/24 18:44 Sulfa (Sulfonamide Allergy Mild Rash Verified 08/19/24 18:44 Antibiotics) Requesting physician: YESSENIA DELCID Procedure: Lexiscan nuclear stress test General Information: Reason for Stress Test: [Chest discomfort, atrial flutter] Cardiac History and Risk Factors: [Hyperlipidemia] Resting 12 - Lead Electrocardiogram: Sinus bradycardia, heart rate 52 bpm, otherwise normal EKG Stress Test: Protocol: [Lexiscan] Exercise Capacity: [Nonapplicable] Blood Pressure Response: [Normal] Rhythm: [Sinus rhythm] ST - Response: [No change] Patient Response: [Generalized heaviness, no chest pain or shortness of breath] Resting heart rate 54 bpm, resting blood pressure 128/72. Patient was injected with 0.4 mg of IV Lexiscan and he was monitored for few minutes. Peak heart rate 88 bpm which represents 60% of age-predicted maximum heart rate. Peak blood pressure 138/80 mmHg. Patient has generalized heaviness after Lexiscan injection. No chest pain or shortness of breath. EKG did not show any significant T or ST changes throughout the test. Rare isolated PVCs noted Interpretation: Lexiscan EKG stress test for ischemia Nuclear myocardial perfusion images result will be reported separately Horace Lewis MD [facility]
--- OUTSIDE RECORDS SUMMARY | 2024-09-15 08:22 | XMS_ITS | Referral Summary ---
Author Organization [facility] Address [address] [place] [address] Care Team Providers Care Protection Analyst Name Role Phone Gutierrez Morton DO Primary Care Provider [phone] Encounters Date Type Department Care Team Description 08/25/2024 9:00 AM EDT Office Visit [facility] Heart at [address] [address] Ling Hdz CNP PVC (premature ventricular contraction) (Primary Dx); Atypical atrial flutter (CMS/HCC); Dyspnea on exertion; NSVT (nonsustained ventricular tachycardia) (CMS/HCC); ALEXANDRA (obstructive sleep apnea); Primary hypertension; S/P ablation of atrial flutter 08/20/2024 1:53 AM EDT - 08/22/2024 2:24 PM EDT Hospital Encounter [facility] [address] [place] [phone] Dwight Cody MD Iqbal, Amna, MD Omar, Muhammad, MD Okoro, Bonaventure, MD V-tach (CMS/HCC) (Primary Dx); Atrial flutter, unspecified type (CMS/HCC); Atypical atrial flutter (CMS/HCC) Discharge Disposition: Home or Self Care () 08/21/2024 1:05 PM EDT - 08/21/2024 3:05 PM EDT Surgery [facility] Vascular Lab [address] [place] [phone] Jayro Wright MD Ablation atrial flutter [[id number]] 08/20/2024 Travel from Last 3 Months Allergies [...] drink = 0.6 oz pur e alcohol) [facility] Utilities Answer Date Recorded In [...] any time in the past 12 m [facility], were you homeless or living in a long-term (including now)? 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 Age: 74 year(s) Patient [...] reviewed the examination Procedure Staff Reading Group: [facility] Bottle Sorter: Junior Aguilar RDCS Ordering Physician: JAYRO WRIGHT Procedure Note Mehdi Pat MD - 08/22/2024 1 1 [facility] Heart Station [address] [facility] [place] [address] [phone] (fax) Echocardiogram-[facility] Name: REBECA NICOLE Study Date: 08/22/2024 08:58 AM B/P: 153 mmHg/80 mmHg HR: Date of : 1950 Location: [facility] Height: 75 in. Age: 74 year(s) Patient [...] reviewed the examination Procedure Staff Reading Group: [facility] Bottle Sorter: Junior Aguilar RDCS Ordering Physician: JAYRO WRIGHT Jayro Wright MD CV ECHO PROCEDURES * (ABNORMAL) CBC (08/22/2024 7:09 AM EDT) Auto WBC 9.06 4.00 - 10.60 10*3/uL 08/22/2024 8:24 AM EDT [facility] ([facility]) RBC 4.46 4.20 - 5.70 10*6/uL 08/22/2024 8:24 AM EDT [facility] ([facility]) Hemoglobin 13.3 13.0 - 17.0 g/dL 08/22/2024 8:24 AM EDT [facility] ([facility]) Hematocrit 41.2 39.0 - 50.0 % 08/22/2024 8:24 AM EDT [facility] ([facility]) MCV 92.4 82.0 - 98.0 fL 08/22/2024 8:24 AM EDT [facility] ([facility]) MCH 29.8 27.0 - 33.0 pg 08/22/2024 8:24 AM EDT [facility] ([facility]) MCHC 32.3 32.0 - 35.0 g/dL 08/22/2024 8:24 AM EDT [facility] ([facility]) RDW 16.2(H) 11.5 - 15.0 % 08/22/2024 8:24 AM EDT [facility] ([facility]) Platelets 241 150 - 400 10*3/uL 08/22/2024 8:24 AM EDT [facility] ([facility]) Blood Venous blood specimen / Unknown Venipuncture / Unknown 08/22/2024 7:09 AM EDT 08/22/2024 8:00 AM EDT Anika Quintanilla MD LAB BLOOD ORDERABLES Performing Organization Address City/[facility]/ZIP Co de Phone Number [facility]) [address] [place] [address] * Magnesium (08/22/2024 7:09 AM EDT) Magnesium 2.2 1.9 - 2.7 mg/dL 08/22/2024 8:22 AM EDT [facility] ([facility]) Blood Venous blood specimen / Unknown Venipuncture / Unknown 08/22/2024 7:09 AM EDT 08/22/2024 7:59 AM EDT Anika Quintanilla MD LAB BLOOD ORDERABLES Performing Organization Address City/[facility]/ZIP Co de Phone Number [facility] ([facility]) [address] [place] [address] * (ABNORMAL) Comprehensive metabolic panel (08/22/2024 7:09 AM EDT) Only the most recent of2 resultswithin the time period is included. Sodium 140 136 - 145 mmol/L 08/22/2024 8:22 AM EDT [facility] ([facility]) Potassium 4.3 3.5 - 5.1 mmol/L 08/22/2024 8:22 AM EDT [facility] ([facility]) Chloride 107 98 - 107 mmol/L 08/22/2024 8:22 AM EDT [facility] ([facility]) CO2 29 21 - 31 mmol/L 08/22/2024 8:22 AM EDT [facility] ([facility]) Anion Gap 8 7 - 20 mmol/L 08/22/2024 8:22 AM EDT [facility] ([facility]) BUN 16 7 - 25 mg/dL 08/22/2024 8:22 AM [facility] ([facility]) Creatinine 1.07 0.70 - 1.30 mg/dL 08/22/2024 8:22 AM [facility] ([facility]) BUN/Creatinine Ratio 15.0 08/06 8:22 AM [facility] ([facility]) Glucose 97 70 - 100 mg/dL 08/22/2024 8:22 AM [facility] ([facility]) Calcium 8.5(L) 8.6 - 10.3 mg/dL 08/22/2024 8:22 AM [facility] ([facility]) AST 15 13 - 39 U/L 08/22/2024 8:22 AM [facility] ([facility]) ALT (SGPT) 12 7 - 52 U/L 08/22/2024 8:22 AM [facility] ([facility]) Alkaline Phosphatase 57 34 - 104 U/L 08/22/2024 8:22 AM [facility] ([facility]) Total Protein 6.7 6.0 - 8.3 g/dL 08/22/2024 8:22 AM [facility] ([facility]) Albumin 3.6 3.5 - 5.7 g/dL 08/22/2024 8:22 AM [facility] ([facility]) Total Bilirubin 0.5 0.3 - 1.0 mg/dL 08/22/2024 8:22 AM [facility] ([facility]) eGFR 72.8 >60.0 mL/min/1. 73m*2 08/22/2024 8:22 AM [facility] ([facility]) Comment:[facility] s estimated glomerular filtration rate (eGFR) will [...] MD LAB BLOOD ORDERABLES Performing Organization Address City/[facility]/ZIP Co de Phone Number [facility] ([facility]) [address] [place] [address] * ECG 12 lead (08/21/2024 4:38 PM EDT) Only the most recent of2 resultswithin the time period is included. Ventricular Rate 62 BPM GE MUSE Atrial Rate 62 BPM GE MUSE SC Interval 186 ms GE MUSE QRS DURATION 114 ms GE MUSE QT Interval 454 ms GE MUSE QTC CALCULATION(BAZE TT) 460 ms GE MUSE P [place] 107 degrees GE MUSE R-[place] -22 degrees GE MUSE T Wave [place] 21 degrees GE MUSE 08/21/2024 4:33 PM [...] perforation, heart block necessitating pacemaker insertion, stroke, [place] and were among those discussed. Alternatives were [...] perforation, heart block necessitating pacemaker insertion, stroke, [place] and were among those discussed. Alternatives were [...] isthmus dependent atrial flutter. 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 [place], [place] [phone] (fax) Echocardiogram-[facility] Name: REBECA NICOLE Study Date: 08/20/2024 02:24 PM B/P: 125 mmHg/96 mmHg HR: 57 bpm Date of : 1950 Location: [facility] Height: 78 in. Age: 74 year(s) Patient Room: [facility] Weight: 310 lb. Gender: Male Patient Status: [...] small pericardial effusion. Procedure Staff Reading Group: [facility] Bottle Sorter: MARLA Chan Ordering Physician: MYRNA RAMOS Procedure Note Horace Gross MD - 08/20/2024 1 1 [facility] Heart Station [address] [place] [address] [phone] (fax) Echocardiogram-[facility] Name: [...] small pericardial effusion. Procedure Staff Reading Group: [facility] Bottle Sorter: MARLA Chan Ordering Physician: MYRNA RAMOS Myrna Ramos MD CV ECHO PROCEDURES * High Sensitivity Troponin I (08/20/2024 4:25 AM EDT) [facility] High Sensitivity Troponin I 5 <20 ng/L 08/20/2024 5:52 AM EDT [facility] ([facility]) Blood Venous blood specimen / Unknown Venipuncture / Unknown 08/20/2024 4:25 AM EDT 08/20/2024 5:18 AM EDT Srinivas Vuong MD LAB BLOOD ORDERABLE S [facility] ([facility]) [address] [place] [address] * (ABNORMAL) CBC auto differential (08/20/2024 4:25 AM EDT) [facility] Auto WBC 8.89 4.00 - 10.60 10*3/uL 08/20/2024 5:36 AM EDT [facility] ([facility]) RBC 4.38 4.20 - 5.70 10*6/uL 08/20/2024 5:36 AM EDT [facility] ([facility]) Hemoglobin 13.0 13.0 - 17.0 g/dL 08/20/2024 5:36 AM EDT [facility] ([facility]) Hematocrit 40.3 39.0 - 50.0 % 08/20/2024 5:36 AM EDT [facility] ([facility]) MCV 92.0 82.0 - 98.0 fL 08/20/2024 5:36 AM EDT [facility] ([facility]) MCH 29.7 27.0 - 33.0 pg 08/20/2024 5:36 AM EDT [facility] ([facility]) MCHC 32.3 32.0 - 35.0 g/dL 08/20/2024 5:36 AM EDT [facility] ([facility]) RDW 16.2(H) 11.5 - 15.0 % 08/20/2024 5:36 AM EDT [facility] ([facility]) Neutrophils % 68.1 40.0 - 72.0 % 08/20/2024 5:36 AM EDT [facility] ([facility]) Lymphocytes % 21.1 20.0 - 45.0 % 08/20/2024 5:36 AM EDT [facility]) Monocytes % 6.7 5.0 - 12.0 % 08/20/2024 5:36 AM T [facility] ([facility]) Eosinophils % 2.4 0.0 - 6.0 % 08/20/2024 5:36 AM T [facility]) Basophils % 1.3(H) 0.0 - 1.0 % 08/20/2024 5:36 AM T [facility]) Neutrophils Absolute 6.04 1.60 - 7.60 10*3/uL 08/20/2024 5:36 AM T [facility] ([facility]) Lymphocytes Absolute 1.88 1.20 - 4.00 10*3/uL 08/20/2024 5:36 AM T [facility]) Monocytes Absolute 0.60 0.10 - 1.00 10*3/uL 08/20/2024 5:36 AM T [facility] ([facility]) Eosinophils Absolute 0.21 0.00 - 0.50 10*3/uL 08/20/2024 5:36 AM EDT [facility]) Basophils Absolute 0.12 0.00 - 0.20 10*3/uL 08/20/2024 5:36 AM T [facility] ([facility]) Platelets 232 150 - 400 10*3/uL 08/20/2024 5:36 AM T [facility] ([facility]) nRBC % 0.0 0 % 08/20/2024 5:36 AM EDT [facility]) Immature Granulocytes % 0.4 0.0 - 1.0 % 08/20/2024 5:36 AM EDT [facility]) Immature Granulocytes Absolute 0.04 0.00 - 0.20 10*3/uL 08/20/2024 5:36 AM EDT [facility]) Blood Venous blood specimen / Unknown Venipuncture / Unknown 08/20/2024 4:25 AM EDT 08/20/2024 5:19 AM EDT Srinivas Vuong MD LAB BLOOD ORDERABLE S [facility]) [address] [place] [address] from Last 3 Months Advance Directives * Full Code (Latest Code Status on File) Date Activated Date Inactivated Comments 08/20/2024 2:26 AM 08/22/2024 4:25 PM Care Teams Protection Analyst Relationship Specialty Start Date End Date Gutierrez Morton DO [address] [place] [address] PCP - General Internal Medicine 08/20/24
--- OUTSIDE RECORDS SUMMARY | 2024-09-15 08:22 | XMS_ITS | Clinical Summary ---
Author Organization [facility] Address [address] [place] [address] Care Team Providers Care Scientific Writer Name Role Phone Gutierrez Morton DO Primary Care Provider [phone] Allergies Active Allergy Reactions Criticality Noted Date [...] Description 08/25/2024 9:00 AM EDT Office Visit [facility] Heart [place] [address] [place] [address] Ling Hdz CNP PVC (premature ventricular contraction) (Primary Dx); Atypical atrial flutter (CMS/HCC); Dyspnea on exertion; NSVT (nonsustained ventricular tachycardia) (CMS/HCC); ALEXANDRA (obstructive sleep apnea); Primary hypertension; S/P ablation of atrial flutter 08/21/2024 1:05 PM EDT - 08/21/2024 3:05 PM EDT Surgery [facility] Vascular Lab [address] [place] [id number] Jayro Wright MD Ablation atrial flutter [[id number]] 08/20/2024 1:53 AM EDT - 08/22/2024 2:24 PM EDT Hospital Encounter [facility] HVCU [address] [place] [phone] Dwight Cody MD Iqbal, Amna, MD Omar, [...] drink = 0.6 oz pur e alcohol) [facility] Utilities Answer Date Recorded In the past [...] any time in the past 12 m [facility], were you homeless or living in a group home (including now)? 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 Age: 74 year(s) Patient Room: [facility] Weight: 296 lb. Gender: Male Patient Status: [...] Procedure Staff Reading Group: [facility] C[facility] Attendant: Junior Aguilar RDCS Ordering Physician: JAYRO WRIGHT Procedure Note Mehdi Pat MD - 08/22/2024 1 1 [facility] Heart Station [address] [place] [address] [phone] (fax) Echocardiogram-[facility] Name: REBECA NICOLE Study Date: 08/22/2024 08:58 AM B/P: 153 mmHg/80 mmHg HR: Date of : 1950 Location: [facility] Height: 75 in. Age: 74 [...] Procedure Staff Reading Group: [facility] Attendant: Junior Aguilar RDCS Ordering Physician: JAYRO WRIGHT Jayro Wright MD CV ECHO PROCEDURES * (ABNORMAL) CBC (08/22/2024 7:09 AM EDT) Auto WBC 9.06 4.00 - 10.60 10*3/uL 08/22/2024 8:24 AM EDT [facility] ([facility]) RBC 4.46 4.20 - 5.70 10*6/uL 08/22/2024 8:24 AM EDT [facility] ([facility]) Hemoglobin 13.3 13.0 - 17.0 g/dL 08/22/2024 8:24 AM EDT [facility] ([facility]) Hematocrit 41.2 39.0 - 50.0 % 08/22/2024 8:24 AM EDT [facility] ([facility]) MCV 92.4 82.0 - 98.0 fL 08/22/2024 8:24 AM EDT [facility]) MCH 29.8 27.0 - 33.0 pg 08/22/2024 8:24 AM EDT [facility]) MCHC 32.3 32.0 - 35.0 g/dL 08/22/2024 8:24 AM EDT [facility] ([facility]) RDW 16.2(H) 11.5 - 15.0 % 08/22/2024 8:24 AM EDT [facility] ([facility]) Platelets 241 150 - 400 10*3/uL 08/22/2024 8:24 AM EDT [facility] ([facility]) Blood Venous blood specimen / Unknown Venipuncture / Unknown 08/22/2024 7:09 AM EDT 08/22/2024 8:00 AM EDT Anika Quintanilla MD LAB BLOOD ORDERABLES [facility]) [address] [place] [address] * Magnesium (08/22/2024 7:09 AM EDT) Magnesium 2.2 1.9 - 2.7 mg/dL 08/22/2024 8:22 AM EDT [facility]) Blood Venous blood specimen / Unknown Venipuncture / Unknown 08/22/2024 7:09 AM EDT 08/22/2024 7:59 AM EDT Anika Quintanilla MD LAB BLOOD ORDERABLES [facility] ([facility]) [address] [place] [address] * (ABNORMAL) Comprehensive metabolic panel (08/22/2024 7:09 AM EDT) Only the most recent of2 resultswithin the time period is included. Sodium 140 136 - 145 mmol/L 08/22/2024 8:22 AM EDT [facility] ([facility]) Potassium 4.3 3.5 - 5.1 mmol/L 08/22/2024 8:22 AM EDT [facility] ([facility]) Chloride 107 98 - 107 mmol/L 08/22/2024 8:22 AM EDT [facility] ([facility]) CO2 29 21 - 31 mmol/L 08/22/2024 8:22 AM EDT [facility] ([facility]) Anion Gap 8 7 - 20 mmol/L 08/22/2024 8:22 AM EDT [facility] ([facility]) BUN 16 7 - 25 mg/dL 08/22/2024 8:22 AM EDT [facility] ([facility]) Creatinine 1.07 0.70 - 1.30 mg/dL 08/22/2024 8:22 AM EDT [facility] ([facility]) BUN/Creatinine Ratio 15.0 08/06 8:22 AM EDT [facility] ([facility]) Glucose 97 70 - 100 mg/dL 08/22/2024 8:22 AM EDT [facility] ([facility]) Calcium 8.5(L) 8.6 - 10.3 mg/dL 08/22/2024 8:22 AM EDT [facility] ([facility]) AST 15 13 - 39 U/L 08/22/2024 8:22 AM EDT [facility] ([facility]) ALT (SGPT) 12 7 - 52 U/L 08/22/2024 8:22 AM EDT [facility] ([facility]) Alkaline Phosphatase 57 34 - 104 U/L 08/22/2024 8:22 AM EDT [facility] ([facility]) Total Protein 6.7 6.0 - 8.3 g/dL 08/22/2024 8:22 AM EDT [facility] ([facility]) Albumin 3.6 3.5 - 5.7 g/dL 08/22/2024 8:22 AM EDT [facility] ([facility]) Total Bilirubin 0.5 0.3 - 1.0 mg/dL 08/22/2024 8:22 AM EDT [facility] ([facility]) eGFR 72.8 >60.0 mL/min/1. 73m*2 08/22/2024 8:22 AM EDT [facility] ([facility]) Comment:[facility] s estimated glomerular filtration rate (eGFR) will [...] EDT Anika Quintanilla MD LAB BLOOD ORDERABLES [facility] ([facility]) [address] [place] [address] * ECG 12 lead (08/21/2024 4:38 PM EDT) Only the most recent of2 resultswithin the time period is included. Ventricular Rate 62 BPM GE MUSE Atrial Rate 62 BPM GE MUSE ND Interval 186 ms GE MUSE QRS DURATION 114 ms GE MUSE QT Interval 454 ms GE MUSE QTC CALCULATION(BAZE TT) 460 ms GE MUSE P [place] 107 degrees GE MUSE R-[place] -22 degrees GE MUSE T Wave [place] 21 degrees GE MUSE 08/21/2024 4:33 PM [...] perforation, heart block necessitating pacemaker insertion, stroke, [place] and were among those discussed. Alternatives were [...] perforation, heart block necessitating pacemaker insertion, stroke, [place] and were among those discussed. 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 Age: 74 year(s) Patient Room: [facility] Weight: 310 lb. Gender: Male Patient Status: [...] Procedure Staff Reading Group: [facility] Attendant: MARLA Chan Ordering Physician: MYRNA RAMOS Procedure Note Horace Gross MD - 08/20/2024 1 1 [facility] Heart Station [address] [place] [address] [phone] (fax) Echocardiogram-[facility] Name: REBECA NICOLE Study Date: 08/20/2024 02:24 PM B/P: 125 mmHg/96 mmHg HR: 57 bpm Date of : 1950 Location: [facility] Height: 78 in. Age: 74 [...] Procedure Staff Reading Group: [facility] Attendant: MARLA Chan Ordering Physician: MYRNA RAMOS Myrna Ramos MD CV ECHO PROCEDURES * High Sensitivity Troponin I (08/20/2024 4:25 AM EDT) High Sensitivity Troponin I 5 <20 ng/L 08/20/2024 5:52 AM EDT [facility] ([facility]) Blood Venous blood specimen / Unknown Venipuncture / Unknown 08/20/2024 4:25 AM EDT 08/20/2024 5:18 AM EDT Srinivas Vuong MD LAB BLOOD ORDERABLE S [facility] ([facility]) [address] [place] [address] * (ABNORMAL) CBC auto differential (08/20/2024 4:25 AM EDT) Auto WBC 8.89 4.00 - 10.60 10*3/uL 08/20/2024 5:36 AM EDT [facility] ([facility]) RBC 4.38 4.20 - 5.70 10*6/uL 08/20/2024 5:36 AM EDT [facility] ([facility]) Hemoglobin 13.0 13.0 - 17.0 g/dL 08/20/2024 5:36 AM EDT [facility] ([facility]) Hematocrit 40.3 39.0 - 50.0 % 08/20/2024 5:36 AM EDT [facility] ([facility]) MCV 92.0 82.0 - 98.0 fL 08/20/2024 5:36 AM EDT [facility] ([facility]) MCH 29.7 27.0 - 33.0 pg 08/20/2024 5:36 AM EDT [facility] ([facility]) MCHC 32.3 32.0 - 35.0 g/dL 08/20/2024 5:36 AM EDT [facility] ([facility]) RDW 16.2(H) 11.5 - 15.0 % 08/20/2024 5:36 AM EDT [facility] ([facility]) Neutrophils % 68.1 40.0 - 72.0 % 08/20/2024 5:36 AM EDT [facility] ([facility]) Lymphocytes % 21.1 20.0 - 45.0 % 08/20/2024 5:36 AM EDT [facility] ([facility]) Monocytes % 6.7 5.0 - 12.0 % 08/20/2024 5:36 AM EDT [facility] ([facility]) Eosinophils % 2.4 0.0 - 6.0 % 08/20/2024 5:36 AM EDT [facility] ([facility]) Basophils % 1.3(H) 0.0 - 1.0 % 08/20/2024 5:36 AM EDT [facility] ([facility]) Neutrophils Absolute 6.04 1.60 - 7.60 10*3/uL 08/20/2024 5:36 AM EDT [facility] ([facility]) Lymphocytes Absolute 1.88 1.20 - 4.00 10*3/uL 08/20/2024 5:36 AM EDT [facility] ([facility]) Monocytes Absolute 0.60 0.10 - 1.00 10*3/uL 08/20/2024 5:36 AM EDT [facility] ([facility]) Eosinophils Absolute 0.21 0.00 - 0.50 10*3/uL 08/20/2024 5:36 AM EDT [facility] ([facility]) Basophils Absolute 0.12 0.00 - 0.20 10*3/uL 08/20/2024 5:36 AM EDT [facility] ([facility]) Platelets 232 150 - 400 10*3/uL 08/20/2024 5:36 AM EDT [facility] ([facility]) nRBC % 0.0 0 % 08/20/2024 5:36 AM EDT [facility] ([facility]) Immature Granulocytes % 0.4 0.0 - 1.0 % 08/20/2024 5:36 AM EDT [facility] ([facility]) Immature Granulocytes Absolute 0.04 0.00 - 0.20 10*3/uL 08/20/2024 5:36 AM EDT [facility] ([facility]) Blood Venous blood specimen / Unknown Venipuncture / Unknown 08/20/2024 4:25 AM EDT 08/20/2024 5:19 AM EDT Srinivas Vuong MD LAB BLOOD ORDERABLE S [facility] ([facility]) [address] [place] [address] from Last 3 Months Advance Directives * Full Code (Latest Code Status on File) Date Activated Date Inactivated Comments 08/20/2024 2:26 AM 08/22/2024 4:25 PM Care Teams Scientific Writer Relationship Specialty Start Date End Date Gutierrez Morton DO [address] [place] [address] PCP - General Internal Medicine 08/20/24
== END 2024-09-15 08:20 | disposition home or self-care (01) ==
LOC: NM 08:19
PROVIDERS: PCP Internal Medicine; Visit Provider Nurse Practitioner Family
DX: I48.4 Atypical atrial flutter (principal); I49.3 Ventricular premature depolarization; R06.09 Other forms of dyspnea

== ENCOUNTER 2024-10-07 20:43 | Outpatient (OUT) | payer MEDICARE, SELFPAY ==
--- OUTSIDE RECORDS SUMMARY | 2024-10-07 20:46 | XMS_ITS | Encounter Summary ---
Author Organization [employer] Address [id number] [place] [address] Care Team Providers Care Water Ski Assembler Name Role Phone Gutierrez Morton Primary Care Provider [phone] Encounter Details Date Type Department Care Team (Late st Contact Info) Description 02/14/2024 Telephone [facility] [address] [place] [address] Nubia Sadler LPN Social History Tobacco Use Types Packs/Day Years Used Date Smoking Tobacco: Former Smokeless Tobacco: Never Alcohol Use Standard Drinks/Week Comments Never 0 (1 standard drink = 0.6 oz pur e alcohol) Childcare Answer Date Recorded Childcare Unknown 09/11/2018 Employment Answer Date Recorded Employment Unknown 09/11/2018 Hunger Screening Answer Date Recorded Within the past 12 months we worried whether our food would run out before we got money to buy more. Never True 01/15/2024 Within the past 12 months th e food we bought just didn't last and we didn't have money to get more. Never True 01/15/2024 Purpose - Life Answer Date Recorded Purpose and direction in life Unknown Sex and Gender Information Value Date Recorded Sex Assigned at Not on file Legal Sex Male 12:05 PM EDT Gender Identity Not on file Sexual Orientation Not on file documented as of this encounter Miscellaneous Notes * Telephone Encounter - Merly Hall - 02/14/2024 2:23 PM EST Patient has a rash he stated that it look severe and is red he is having a Procedure with S Isidra in March and he wanted to no if something could be prescribed on should he be seen sooner [phone] * Telephone Encounter - Nubia Sadler LPN - 02/14/2024 2:23 PM EST Patient sees wound care for his wound and they are aware of patients rash, patient thinks this may be d/t the compression stockings. Patient did say that he has experienced having a rash in the past.Patient explained that he is not concerned he just wanted to inform our office that rash may have gotten worse. Patient denies itchiness, shortness of breath, trouble breathing and rash is on lower extremity. Patient explained that his is a nurse and will monitor the rash and take him to the ER if necessary. Patient will call wound care Saturday to get direction, pt also has an apt in wound care next Saturday. Patient is satisfied with plan documented in this encounter Plan of Treatment Not on file documented as of this encounter Visit Diagnoses Not on filedocumented in this encounter Care Teams Water Ski Assembler Relationship Specialty Start Date End Date Gutierrez Morton DO [address] [place] [address] PCP - General Internal Medicine 07/26/20 documented as of this encounter
--- OUTSIDE RECORDS SUMMARY | 2024-10-07 20:46 | XMS_ITS | Encounter Summary ---
Author Organization [email or web address] Address [id number] [place] [address] Care Team Providers Care Reject Opener Name Role Phone Gutierrez Morton DO Primary Care Provider [phone] Encounter Details Date Type Department Care Team (Late st Contact Info) Description 03/09/2024 Telephone [facility] [place] - Vascular [address] [phone] Christina Miner MD [address] [place], [place] [id number] [phone] Social History Tobacco Use Types Packs/Day Years [...] got money to buy more. Never True 02/26/2024 Within the past 12 months th e food we bought just didn't last and we didn't have money to get more. Never True 02/26/2024 Purpose - Life Answer Date Recorded Purpose and direction in life Unknown Sex and Gender Information Value Date Recorded Sex Assigned at Not on file Legal Sex Male 12:05 PM EDT Gender Identity Not on file Sexual Orientation Not on file documented as of this encounter Miscellaneous Notes * Telephone Encounter - Karolyn Hall - 03/09/2024 9:28 AM EST Patient has a procedure scheduled for 03/13 but is wanting to consult with on a few things beforeproceeding. Patient states that everything he originally came in for seems to be cleared up. He hasno more swelling at night in his left leg and is is looking a lot better. Patient was given a steroid cream from [facility] but it doesn't seem to be working. He is concerned that if its not clearedup before his procedure Dr will want to reschedule. Patient states he lives 50 minutes away and wants to make sure dr doesn't want to reschedule until his rash is cleared up before he drives all thisway. Patient can be reached at [phone] Thank you. * Telephone Encounter - Nubia Sadler LPN - 03/09/2024 9:28 AM EST Ordered patient some blood work to r/o an acute blood clot. [facility] * Telephone Encounter - Clare Huntley - 03/09/2024 9:28 AM EST Patient is feeling that all of the reasons this procedure was scheduled are either all cleared up or being treated by addressing machine operator (rash). He doesn't want to come for procedure if there is any risk of it being cancelled at the last minute. He is looking for guidance and wants to speak with someone clinical to help with this decision. I will send this to Dari- Nubia has already addressed some issues, but patient still not feeling comfortable with procedure, may need to get Karly involved. He can be reached [phone] * Telephone Encounter - Nubia Sadler LPN - 03/09/2024 9:28 AM EST Sending to residential energy auditor regarding this message. Dr.S Miner has been informed of patients recent decision to possibly cancell procedure Please let me know if I can help. documented in this encounter Plan of Treatment Not on file documented as of this encounter Visit Diagnoses Not on filedocumented in this encounter Care Teams Reject Opener Relationship Specialty Start Date End Date Gutierrez Morton DO [address] [place] [address] PCP - General Internal Medicine 07/26/20 documented as of this encounter
--- OUTSIDE RECORDS SUMMARY | 2024-10-07 20:46 | XMS_ITS | Encounter Summary ---
Author Organization [facility] Address [address] [place] [address] Care Team Providers Care Program Coordinator Name Role Phone Praveen Gutierrez Primary Care Provider [phone] Encounter Details Date Type Department Care Team (Late st Contact Info) Description 09/17/2024 Results Follow-Up [facility] Heart at [facility] [address] [place] [address] Ling Hdz, ORDER ADMINISTRATOR [address] [place] [address] [facility] Social History Tobacco Use Types Packs/Day Years Used Date Smoking Tobacco: Former Cigarettes Smokeless Tobacco: Never Alcohol Use Standard Drinks/Week Comments Not Currently 0 (1 standard drink = 0.6 oz pur e alcohol) [facility] Utilities Answer Date Recorded In the past 12 months has e [employer], gas, oil, or water [employer] threatened to shut off services in your [...] any time in the past 12 m [facility], were you homeless or living in a detention (including now)? No 08/20/2024 Hunger Vital Sign Answer Date Recorded Within the past 12 months, y ou worried that your food would run out before you got the money to buy more. Never true 08/21/19 25 Ran Out of Food in the Last Year Not on file 08/20/2024 Sex and Gender Information Value Date Recorded Sex Assigned at Male 08/20/2024 9:17 AM EDT Legal Sex Male 8:54 AM EDT Gender Identity Male 08/20/2024 9:17 AM EDT Sexual Orientation Don't know 08/20/2024 9: 17 AM EDT documented as of this encounter Miscellaneous Notes * Result Encounter Note - Ling Hdz CNP - 09/17/2024 1:11 PM EDT Please let him know his stress test was normal. Follow up as planned with Dr. Phoenix. Thanks! documented in this encounter Plan of Treatment Upcoming Encounters Date Type Department Care Team (Late st Contact Info) Description 10/27/2024 1:45 PM EDT Office Visit [facility] [address] [place] [address] Magdy Phoenix MD [address] [place] [address] documented as of this encounter Visit Diagnoses Not on filedocumented in this encounter Care Teams Program Coordinator Relationship Specialty Start Date End Date Gutierrez Morton DO [address] [place] [address] PCP - General Internal Medicine 08/20/24 documented as of this encounter
--- OUTSIDE RECORDS SUMMARY | 2024-10-07 20:46 | XMS_ITS | Encounter Summary ---
Author Organization [facility] Address [id number] [place] [address] Care Team Providers Care Straightedge Machine Operator Helper Name Role Phone Gutierrez Morton DO Primary Care Provider [phone] Encounter Details Date Type Department Care Team (Late st Contact Info) Description 07/26/2020 Orders Only [facility] [address] [place] [id number] Sherri Gonzalez, PADoryC [address] [place] [address] History of total knee arthroplasty, bilateral (Primary Dx) Social History Tobacco Use Types Packs/Day Years Used Date Smoking Tobacco: Former Smokeless Tobacco: Never Alcohol Use Standard Drinks/Week Comments Never 0 (1 standard drink = 0.6 oz pur e alcohol) Childcare Answer Date Recorded Childcare Unknown 09/11/2018 Employment Answer Date Recorded Employment Unknown 09/11/2018 Purpose - Life Answer Date Recorded Purpose and direction in life Unknown Sex and Gender Information Value Date Recorded Sex Assigned at Not on file Legal Sex Male 12:05 PM EDT Gender Identity Not on file Sexual Orientation Not on file COVID-19 Exposure Response Date Recorded In the last month, have you been in contact with someone who was confirmed or suspected to have Coronavirus / COVID-19? No / Unsure 07/26/2020 11:56 AM EDT documented as of this encounter Plan of Treatment Not on file documented as of this encounter Results * X-ray knee left minimum 4 views (07/26/2020 12:19 PM EDT) Anatomical Region Laterality Modality Knee Left Computed Radiogr aphy 07/26/2020 10:3 3 PM EDT Narrative 07/26/2020 10:34 PM EDT History: Bilateral hip and knee pain. Prior surgery. Left knee 4 views Impression: 1. Prosthesis shows no radiographic evidence for complication. No acute findings. Finalized by Venkat Kilgore MD on 07/26/2020 10:34 PM Procedure Note Venkat Kilgore MD - 07/26/2020 History: Bilateral hip and knee pain. Prior surgery. Left knee 4 views Impression: 1. Prosthesis shows no radiographic evidence for complication. No acutefindings. Finalized by Venkat Kilgore MD on 07/26/2020 10:34 PM Sherri Gonzalez PA-C [facility] Final Result * X-ray knee right minimum 4 views (07/26/2020 12:19 PM EDT) Anatomical Region Laterality Modality Knee Right Computed Radiogr aphy 07/26/2020 4:15 PM EDT Narrative 07/26/2020 4:16 PM EDT Right knee: History: Right knee pain. 4 views the right knee were obtained. Patient status post total knee arthroplasty. Joint spaces are preserved. No acute fractures seen. The hardware is intact. IMPRESSION: No acute findings. Finalized by Julio Al MD on 07/26/2020 4:16 PM Procedure Note Julio Al MD - 07/26/2020 Right knee: History: Right knee pain. 4 views the right knee were obtained. Patient status post total kneearthroplasty. Joint spaces are preserved. No acute fractures seen. Thehardware is intact. IMPRESSION: No acute findings. 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
--- OUTSIDE RECORDS SUMMARY | 2024-10-07 20:46 | XMS_ITS | Clinical Summary ---
Author Organization [facility] Address [address] [place] [id number] Care Team Providers Care Bar Waiter/Waitress Name Role Phone Gutierrez Morton DO Primary Care Provider [phone] Allergies Active Allergy Reactions Criticality Noted Date Comments Sulfamethoxazole-Trimethoprim Rash 2018 Rash Doxycycline Hives 07/01/2018 Hives Medications No known medications Social History Tobacco Use Types Packs/Day Years Used Date Smoking Tobacco: Never Assessed Area Deprivation Index Answer Date Antoni rded National Score (1-100), lower number is lower ri sk Not on file 03/16/2020 State Score (1-10), lower number is lower risk N ot on file 03/16/2020 Data from: https://www.neighborhoodatlas.medicine.[facility].edu/. Last address used for calculation Not on file 03/16/2020 Sex and Gender Information Value Date Recorded Sex Assigned at Not on file Legal Sex Male 9:54 AM EST Gender Identity Not on file Sexual Orientation Not on file Plan of Treatment Health Maintenance Due Date Last Done Comments Anxiety Screening 1968 Depression Screening 1968 Hepatitis C Screening 1968 DTaP,Tdap,Td Vaccine (1 - Tdap) [address] Colonography 07/09/1995 Cologuard (FIT-DNA) 07/09/1995 Colonoscopy 07/09/1995 Colorectal Cancer Screening 07/09/1995 Diabetes Screening 07/09/1995 Fecal Occult Blood 07/09/1995 Sigmoidoscopy 07/09/1995 Pneumococcal Vaccine: 50+ (1 of 1 - PCV) 2000 Shingrix Vaccine (1 of 2) 2000 Covid-19 Vaccine (1 - 2024- season) 2023 Advance Directive Discussion 04/08/2024 Influenza Vaccine (Season Ended) 2024 RSV Vaccine (1 - 1-dose 75+ series) 2025 Insurance [employer] MEDICARE Care Teams Bar Waiter/Waitress Relationship Specialty Start Date End Date Gutierrez Morton DO [address] [place] [address] PCP - General Internal Medicine 06/28/18
--- OUTSIDE RECORDS SUMMARY | 2024-10-07 20:46 | XMS_ITS | Clinical Summary ---
Author Organization [employer] Address [id number] [address] [place] [address] Care Team Providers Care Electrotype Molder Name Role Phone Gutierrez Morton Primary Care Provider [phone] Allergies Active Allergy Reactions Criticality Noted Date Comments Doxycycline Hives 07/01/2018 Hives Latex, Natural Rubber Rash Low 02/19/2024 Sulfamethoxazole-Trimethoprim Rash Low 2018 Rash Medications melatonin 5 mg tablet,chewable Chew and swallow. Active omeprazole (PriLOSEC) 10 mg capsule Take 1 capsule (10 mg total) by mouth every morning before breakfast. 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, bilateral 07/26/2020 Foot drop, right 07/26/2020 Foot drop, left 07/26/2020 Psoas tendonitis of left side 07/26/2020 Social History Tobacco Use Types Packs/Day Years Used Date Smoking Tobacco: Former Smokeless Tobacco: Never Tobacco Cessation:Counseling Given: Not Answered Alcohol Use Standard Drinks/Week Comments Never 0 (1 standard drink = 0.6 oz pur e alcohol) Childcare Answer Date Recorded Childcare Unknown 09/11/2018 Employment Answer Date Recorded Employment Unknown 09/11/2018 Hunger Screening Answer Date Recorded Within the past 12 months we worried whether our food would run out before we got money to buy more. Never True 04/10/2024 Within the past 12 months th e food we bought just didn't last and we didn't have money to get more. Never True 04/10/2024 Purpose - Life Answer Date Recorded Purpose and direction in life Unknown Sex and Gender Information Value Date Recorded Sex Assigned at Not on file Legal Sex Male 12:05 PM EDT Gender Identity Not on file Sexual Orientation Not on file Last Filed Vital Signs Vital Sign Reading Time Taken Comments Blood Pressure 166/94 04/10/2024 8:10 AM EST Pulse 75 04/10/2024 8:10 AM EST Temperature 36.2 C (97.1 F) 04/10/2024 8:10 AM EST Respiratory Rate 16 02/26/2024 8:24 AM EST Oxygen Saturation - - Inhaled Oxygen Concentration - - Weight 147 kg (324 lb) 02/03/2024 10:09 AM EDT Height 198.1 cm (6' 6 ) 07/26/2020 12:40 PM EDT Body Mass Index 37.44 07/26/2020 12:40 PM EDT Plan of Treatment Health Maintenance Due Date Last Done Comments Depression Screening 1962 Zoster (Shingles) Vaccine (1 of 2) 2000 DTaP,Tdap and Td Vaccines (2 - Tdap) 02/01/200901/07 Abdominal Aortic Aneurysm (AAA) Screen 07/09/2015 Fall Risk Screening 07/09/2015 Influenza Vaccine 12/07/2024 Adult BMI Screening 02/02/2025 02/03/2024 Tobacco Screening 04/10/2025 04/10/2024 Medical Devices Not on file Insurance [employer] MEDICARE Care Teams Electrotype Molder Relationship Specialty Start Date End Date Gutierrez Morton DO [address] [place] [address] PCP - General Internal Medicine 07/26/20
--- OUTSIDE RECORDS SUMMARY | 2024-10-07 20:46 | XMS_ITS | Clinical Summary ---
Author Organization [facility] Address [address] [place] [address] Care Team Providers Care Warp Splitter Name Role Phone Gutierrez Morton DO Primary Care Provider [phone] Allergies Active Allergy Reactions Criticality Noted Date Comments Doxycycline Hives 08/20/2024 Latex, Natural Rubber Rash Low 02/17/2024 Prednisone Unknown 02/18/2023 Sulfa (Sulfonamide Antibiotics) Rash Low 08/06 Sulfamethoxazole-Trimethoprim Rash,Unknown Low 06/07 Rash Medications omeprazole (PriLOSEC) [address] capsule Take 40 mg by mouth before breakfast. Do not crush or chew. Active azithromycin (Zithromax) 250 mg tablet Take 250 mg by mouth every other day. Active apixaban (Eliquis) 5 mg tabletIndication s:Atypical atrial flutter (CMS/HCC) Take 1 tablet (5 mg) by mouth two times daily. 60 tablet 1 08/22/2024 Active metoprolol succinate XL (Toprol-XL) 25 mg 24 hr tabletIndication s:Atypical atrial flutter (CMS/HCC) Take 1 tablet (25 mg) by mouth in the morning. Do not crush or chew. 30 tablet 1 08/23/2024 Active cholecalciferol, vitamin D3, 50 mcg (2,000 [...] Encounters Date Type Department Care Team Description 09/18/2024 Telephone [facility] [address] [place] [address] JimSandy MA 09/17/2024 Results Follow-Up [facility] [address] [facility] [place] [address] Ling Hdz CNP Lexiscan Stress Myocardial Perfusion Imaging 09/17/2024 Orders Only [facility] [address] [place] [address] ProviderRenetta MD 08/25/2024 9:00 AM EDT Office Visit [facility] [address] [facility] [place] [address] Ling Hdz CNP PVC (premature ventricular contraction) (Primary Dx); Atypical atrial flutter (CMS/HCC); Dyspnea on exertion; NSVT (nonsustained ventricular tachycardia) (CMS/HCC); ALEXANDRA (obstructive sleep apnea); Primary hypertension; S/P ablation of atrial flutter 08/21/2024 1:05 PM EDT - 08/21/2024 3:05 PM EDT Surgery [facility] Vascular Lab [address] [place] [id number] Jayro Wright MD Ablation atrial flutter [[id number]] 08/20/2024 1:53 AM EDT - 08/22/2024 2:24 PM EDT Hospital Encounter [facility] [address] [place] [address] Dwight Cody MD Iqbal, Amna, MD Omar, [...] drink = 0.6 oz pur e alcohol) [facility] Utilities Answer Date Recorded In the past 12 months has th e [employer], gas, oil, or water [employer] threatened to shut off services in your [...] any time in the past 12 m [facility], were you homeless or living in [...] Description 10/27/2024 1:45 PM EDT Office Visit [facility] [address] [place] [address] Magdy Phoenix MD [address] [place] [address] Health Maintenance Due Date Last Done Comments CT Colonography 1950 Colonoscopy 1950 Colorectal Cancer Screening 1950 FIT-DNA 1950 FIT 1950 FOBT 1950 Medicare Annual Wellness (AWV) 1950 Sigmoidoscopy 1950 Depression Screening 1962 Adult Tetanus 1972 Zoster Vaccines (1 of 2) 2000 Pneumococcal Vaccine: 50+ Ye ars (2 of 2 - PCV20 or PCV21) 05/13/2019 05/13/2018 COVID-19 Vaccine (1 - 2023-2 5 season) 2023 Influenza Vaccine (#1) 2024 Fall Risk Screening 08/22/2025 08/22/2024 HIB [...] Procedure Name Priority Date/Time Associated Diagnosis Comments LEXISCAN STRESS MYOCARDIAL PERFUSION IMAGING Routine 09/14/2024 9:38 AM EDT ECG 12 LEAD UNIT PERFORMED Routine 08/25/2024 8:59 AM EDT Atypical atrial flutter (CMS/HCC) CARDIAC EVENT MONITOR Routine 08/22/2024 1:38 PM EDT Atypical atrial flutter (CMS/HCC) LIMITED ECHO [...] EDT from Last 3 Months Results * Lexiscan Stress Myocardial Perfusion Imaging (09/14/2024 9:38 AM EDT) Anatomical Region Laterality Modality Other Historical Provider CV STRESS PROCEDURES Naima l Result * ECG 12 lead unit performed (08/25/2024 8:59 AM EDT) Ling Hdz CNP ECG ORDERABLES Final Result * CARDIAC EVENT MONITOR (08/22/2024 1:38 PM EDT) Anatomical Region Laterality Modality Electrocardiogra phy 08/22/2024 1:17 PM EDT Narrative 09/24/2024 1:44 PM EDT 1 [facility] Heart Station [address] [place] [address] [phone] (fax) Event Recorder-[facility] Name: REBECA NICOLE Study Date: 08/22/2024 01:17 PM Date of : 1950 Location: [facility] Height: Age: 74 year(s) Patient Room: 3167 Weight: Gender: Male Patient Status: InPt BSA: Indication: Atrial Flutter Examination: Event Recorder Conclusions -Most frequent symptomatic event: Shortness of Breath during Isolated SVE (2/12 events). -Sinus rhythm had a prevalence of 98.07%, average per minute rate of 62 BPM, slowest per minute rate of 45 BPM, and fastest per minute rate of 142 BPM. -The slowest N-N interval within Bradycardia had rate of 35 BPM (1.7s), occurring on day 11 at 02:29. -Atrial Fibrillation / Flutter was noted with burden 0.07% and fastest per minute rate of 161 BPM on day 5 at 09:40. The longest episode of Afib / AFL occurred on day 5 at 09:37, lasting 4m 38s. -Ventricular ectopic activity consisted of 752 episodes, of which 749 were single, 3 were couplets. -Supraventricular ectopic activity consisted of 17191 episodes, of which 54080 were single, 2478 were couplets, 1653 were triplets, 3140 were longer runs. Rhythm: Atrial Fibrillation, Sinus Bradycardia , Supraventricular Tachycardia, Premature ventricular complexes, SVE Triplet, SVE Couplet, Premature atrial complexes, Baseline Artifact, Atrial Bigeminy, Atrial Trigeminy Start of Examination: 08/22/2024 Recording Duration: 29 Days Findings: The primary rhythm was Sinus with burden of 51.19%. The average minutely heart rate was 62 bpm. Sinus Bradycardia with burden 46.88%. Ventricular ectopy with burden 0.03%. Atrial Fibrillation / Flutter with burden 0.07%. Supraventricular ectopy with burden 1.83%. The longest Supraventricular episode had 432 beats, on day 13 at 09:41, lasting 2 minutes 58 seconds with an average heart rate of 146 bpm. The patient triggered multiple symptoms, the strips showed 1 SVE Couplet, isolated Atrial ectopic beats, Supraventricular runs, Sinus Bardycardia and SVE Triplet. Holter / Ambulatory ECG Average HR 62 bpm Time of Max. HR 17:14 Day 8 Time of Min. HR 00:48 Day 12 Time of Max.RR-Int. 02:29 Day 11 Max. HR 142 bpm Min. HR 45 bpm Max. RR Interval 2 sec VE / SVE VE Ectopics 755 VE Couplets 3 SVE Ectopics 40577 SVE Couplets 2478 Atrial Trigeminy 892 cycles Atrial Bigeminy 2079 cycles SVE Runs 3140 Beats Longest SVE Run 432 Rate Longest SVE Run 146 bpm Time Longest SVE Run 09:41 Day 13 Beats Fastest SVE Run 6 Rate Fastest SVE Run 176 bpm Time Fastest SVE Run 14:56 Day 6 Procedure Staff Reading Group: [facility] Ordering Physician: MARIO DEL CID Bilingual Patient Support Caseworker: Monique Hall Procedure Note Horace Gross MD - 09/24/2024 1 [facility] Heart Station [address] [place] [address] [phone] (fax) Event Recorder-[facility] Name: REBECA NICOLE Study Date: 08/22/2024 01:17 PM Date of : 1950 Location: [facility] Height: Age: 74 year(s) Patient Room: 3167 Weight: Gender: Male Patient Status: InPt BSA: Indication: Atrial Flutter Examination: Event Recorder Conclusions -Most frequent symptomatic event: Shortness of Breath during Isolated SVE (2/12 events). -Sinus rhythm had a prevalence of 98.07%, average per minute rate of 62 BPM, slowest per minute rate of 45 BPM, and fastest per minute rate of 142 BPM. -The slowest N-N interval within Bradycardia had rate of 35 BPM (1.7s), occurring on day 11 at 02:29. -Atrial Fibrillation / Flutter was noted with burden 0.07% and fastest per minute rate of 161 BPM on day 5 at 09:40. The longest episode of Afib / AFL occurred on day 5 at 09:37, lasting 4m 38s. -Ventricular ectopic activity consisted of 752 episodes, of which 749 were single, 3 were couplets. -Supraventricular ectopic activity consisted of 65579 episodes, of which 85572 were single, 2478 were couplets, 1653 were triplets, 3140 were longer runs. Rhythm: Atrial Fibrillation, Sinus Bradycardia , Supraventricular Tachycardia, Premature ventricular complexes, SVE Triplet, SVE Couplet, Premature atrial complexes, Baseline Artifact, Atrial Bigeminy, Atrial Trigeminy Start of Examination: 08/22/2024 Recording Duration: 29 Days Findings: The primary rhythm was Sinus with burden of 51.19%. The average minutely heart rate was 62 bpm. Sinus Bradycardia with burden 46.88%. Ventricular ectopy with burden 0.03%. Atrial Fibrillation / Flutter with burden 0.07%. Supraventricular ectopy with burden 1.83%. The longest Supraventricular episode had 432 beats, on day 13 at 09:41, lasting 2 minutes 58 seconds with an average heart rate of 146 bpm. The patient triggered multiple symptoms, the strips showed 1 SVE Couplet, isolated Atrial ectopic beats, Supraventricular runs, Sinus Bardycardia and SVE Triplet. Holter / Ambulatory ECG Average HR 62 bpm Time of Max. HR 17:14 Day 8 Time of Min. HR 00:48 Day 12 Time of Max.RR-Int. 02:29 Day 11 Max. HR 142 bpm Min. HR 45 bpm Max. RR Interval 2 sec VE / SVE VE Ectopics 755 VE Couplets 3 SVE Ectopics 43196 SVE Couplets 2478 Atrial Trigeminy 892 cycles Atrial Bigeminy 2079 cycles SVE Runs 3140 Beats Longest SVE Run 432 Rate Longest SVE Run 146 bpm Time Longest SVE Run 09:41 Day 13 Beats Fastest SVE Run 6 Rate Fastest SVE Run 176 bpm Time Fastest SVE Run 14:56 Day 6 Procedure Staff Reading Group: [facility] Ordering Physician: MARIO DEL CID Bilingual Patient Support Caseworker: Monique Hall us Mario Del Cid [facility] CV CARDIAC SERVICES PROCEDURES F inal Result * LIMITED ECHO (TTE) (08/22/2024 9:03 AM EDT) Anatomical Region Laterality Modality Other 08/22/2024 8:58 AM EDT Narrative 08/22/2024 10:23 AM EDT 1 1 [facility] Heart Station [address] [place] [address] (fax) Echocardiogram-[facility] Name: REBECA NICOLE Study Date: 08/22/2024 08:58 AM B/P: 153 mmHg/80 mmHg HR: Date of : 1950 Location: [facility] Height: 75 in. Age: 74 year(s) [...] reviewed the examination Procedure Staff Reading Group: [facility] Work Over Rig Operator: Junior Aguilar RDCS Ordering Physician: JAYRO WRIGHT Procedure Note Mehdi Pat MD - 08/22/2024 1 1 [facility] Heart Station [address] [place] [address] (fax) Echocardiogram-[facility] Name: REBECA NICOLE Study Date: 08/22/2024 08:58 AM B/P: 153 mmHg/80 mmHg HR: Date of : 1950 Location: [facility] Height: 75 in. Age: 74 year(s) [...] reviewed the examination Procedure Staff Reading Group: [facility] Work Over Rig Operator: Junior Aguilar RDCS Ordering Physician: JAYRO WRIGHT Jayro Wright MD ECHO PROCEDURES Final Result * (ABNORMAL) CBC (08/22/2024 7:09 AM EDT) Auto WBC 9.06 4.00 - 10.60 10*3/uL 08/22/2024 8:24 AM EDT [facility] ([facility]) RBC 4.46 4.20 - 5.70 10*6/uL 08/22/2024 8:24 AM EDT [facility] ([facility]) Hemoglobin 13.3 13.0 - 17.0 g/dL 08/22/2024 8:24 AM EDT [facility] ([facility]) Hematocrit 41.2 39.0 - 50.0 % 08/22/2024 8:24 AM EDT [facility] ([facility]) MCV 92.4 82.0 - 98.0 fL 08/22/2024 8:24 AM EDT [facility] ([facility]) MCH 29.8 27.0 - 33.0 pg 08/22/2024 8:24 AM EDT [facility] ([facility]) MCHC 32.3 32.0 - 35.0 g/dL 08/22/2024 8:24 AM EDT [facility] ([facility]) RDW 16.2(H) 11.5 - 15.0 % 08/22/2024 8:24 AM EDT [facility] ([facility]) Platelets 241 150 - 400 10*3/uL 08/22/2024 8:24 AM EDT [facility] ([facility]) Blood Venous blood specimen / Unknown Venipuncture / Unknown 08/22/2024 7:09 AM EDT 08/22/2024 8:00 AM EDT Anika Quintanilla MD LAB BLOOD ORDERABLES Final Resu lt [facility]) [address] [place] [address] * Magnesium (08/22/2024 7:09 AM EDT) [facility] Magnesium 2.2 1.9 - 2.7 mg/dL 08/22/2024 8:22 AM EDT [facility]) Blood Venous blood specimen / Unknown Venipuncture / Unknown 08/22/2024 7:09 AM EDT 08/22/2024 7:59 AM EDT Anika Quintanilla MD LAB BLOOD ORDERABLES Final Resu lt [facility]) [address] [place] [address] * (ABNORMAL) Comprehensive metabolic panel (08/22/2024 7:09 AM EDT) Only the most recent of2 resultswithin the time period is included. Sodium 140 136 - 145 mmol/L 08/22/2024 8:22 AM [facility] ([facility]) Potassium 4.3 3.5 - 5.1 mmol/L 08/22/2024 8:22 AM [facility] ([facility]) Chloride 107 98 - 107 mmol/L 08/22/2024 8:22 AM [facility] ([facility]) CO2 29 21 - 31 mmol/L 08/22/2024 8:22 AM [facility] ([facility]) Anion Gap 8 7 - 20 mmol/L 08/22/2024 8:22 AM [facility] ([facility]) BUN 16 7 - 25 mg/dL 08/22/2024 8:22 AM [facility] ([facility]) Creatinine 1.07 0.70 - 1.30 mg/dL 08/22/2024 8:22 AM [facility] ([facility]) BUN/Creatinine Ratio 15.0 08/06 8:22 AM [facility] ([facility]) Glucose 97 70 - 100 mg/dL 08/22/2024 8:22 AM [facility] ([facility]) Calcium 8.5(L) 8.6 - 10.3 mg/dL 08/22/2024 8:22 AM [facility] ([facility]) AST 15 13 - 39 U/L 08/22/2024 8:22 AM [facility] ([facility]) ALT (SGPT) 12 7 - 52 U/L 08/22/2024 8:22 AM [facility] ([facility]) Alkaline Phosphatase 57 34 - 104 U/L 08/22/2024 8:22 AM [facility] ([facility]) Total Protein 6.7 6.0 - 8.3 g/dL 08/22/2024 8:22 AM [facility] ([facility]) Albumin 3.6 3.5 - 5.7 g/dL 08/22/2024 8:22 AM [facility] ([facility]) Total Bilirubin 0.5 0.3 - 1.0 mg/dL 08/22/2024 8:22 AM [facility] ([facility]) eGFR 72.8 >60.0 mL/min/1. 73m*2 08/22/2024 8:22 AM EDT [facility]) Comment:[facility] s estimated glomerular filtration rate (eGFR) will [...] EDT Anika Quintanilla MD LAB BLOOD ORDERABLES Final Resu lt [facility] ([facility]) [address] [place] [address] * ECG 12 lead (08/21/2024 4:38 PM EDT) Only the most recent of2 resultswithin the time period is included. Ventricular Rate 62 BPM GE MUSE Atrial Rate 62 BPM GE MUSE IN Interval 186 ms GE MUSE QRS DURATION 114 ms GE MUSE QT Interval 454 ms GE MUSE QTC CALCULATION(BAZE TT) 460 ms GE MUSE P [place] 107 degrees GE MUSE R-[place] -22 degrees GE MUSE T Wave [place] 21 degrees GE MUSE 08/21/2024 4:33 PM EDT 08/21/2024 4:46 PM EDT Impressions GE MUSE - 08/21/2024 4:46 PM EDT Normal sinus rhythm Normal ECG When compared with ECG of 20-AUG-2024 02:53, Premature ventricular complexes are no longer Present Confirmed by Emerson GROSS, HORACE Rausch ([id number]) on 08/21/2024 4:46:23 PM Narrative Procedure Note Horace Gross MD - 08/21/2024 IMPRESSION: Normal sinus rhythm Normal ECG When compared with ECG of 20-AUG-2024 02:53, Premature ventricular complexes are no longer Present Confirmed by Emerson GROSS SAMER J. ([id number]) on 08/21/2024 4:46:23 PM Jayro Wright MD ECG ORDERABLES Final Result GE MUSE * ABLATION A-FLUTTER (08/21/2024 4:03 [...] perforation, heart block necessitating pacemaker insertion, stroke, TN and were among those discussed. Alternatives were [...] perforation, heart block necessitating pacemaker insertion, stroke, TN and were among those discussed. Alternatives were [...] isthmus dependent atrial flutter. 3 D mapping (ShowEvidenceter), was used to create the right atrial shell as well as electroanatomical map. Ablation: The 8F sheath was then exchanged for the Vizigo sheath. [email or web address] Jo Thermocool ST-SFr ablation catheter was advanced through this sheath and positioned along the CTI. Using the BiosFlypadter CARTO3 electroanatomical mapping system and fluoroscopy CTI [...] of 8 sutures to be removed tomorrow us Magdy Phoenix MD CV ELECTROPHYSIOLOGY PROCEDURES Final Result * (ABNORMAL) POC Activated Clotting Time (08/21/2024 3:55 PM EDT) POCT ACT 216(A) 82 - 152 seconds QC Pass/Fail Passed QC LOT # 8 QC Expiration Date 73,125 Blood Venous blood specimen / Unknown 08/21/2024 3:55 PM EDT Narrative Ron Aguiar MT - 08/25/2024 7:39 AM EDT Qc lot [id number]; stiff leg derrick operator [id number] Jayro Wright MD POINT OF CARE TEST ENTER/EDIT O RDERABLES Final Result * COMPLETE ECHO (TTE) W/ IMAGING AGENT (08/20/2024 3:00 PM EDT) Anatomical Region Laterality Modality Other 08/20/2024 2:24 PM EDT Narrative 08/20/2024 5:26 PM EDT 1 1 [facility] Heart Station [address] [place] [address] [phone] (fax) Echocardiogram-[facility] Name: REBECA NICOLE Study Date: 08/20/2024 02:24 PM B/P: 125 mmHg/96 mmHg HR: 57 bpm Date of : 1950 Location: [facility] Height: 78 in. Age: 74 year(s) [...] small pericardial effusion. Procedure Staff Reading Group: [facility] Work Over Rig Operator: MARLA Chan Ordering Physician: MYRNA RAMOS Procedure Note Horace Gross MD - 08/20/2024 1 1 [facility] Heart Station [address] [id number] [phone] (fax) Echocardiogram-[facility] Name: REBECA NICOLE Study Date: 08/20/2024 02:24 PM B/P: 125 mmHg/96 mmHg HR: 57 bpm Date of : 1950 Location: [facility] Height: 78 in. Age: 74 year(s) [...] small pericardial effusion. Procedure Staff Reading Group: [facility] Work Over Rig Operator: MARLA Chan Ordering Physician: MYRNA RAMOS us Myrna Ramos MD CV ECHO PROCEDURES Final Result * High Sensitivity Troponin I (08/20/2024 4:25 AM EDT) High Sensitivity Troponin I 5 <20 ng/L 08/20/2024 5:52 AM EDT [facility] ([facility]) Blood Venous blood specimen / Unknown Venipuncture / Unknown 08/20/2024 4:25 AM EDT 08/20/2024 5:18 AM EDT us Srinivas Vuong MD LAB BLOOD ORDERABLES Final Result [facility] ([place]) [address] [place] [address] * (ABNORMAL) CBC auto differential (08/20/2024 4:25 AM EDT) Auto WBC 8.89 4.00 - 10.60 10*3/uL 08/20/2024 5:36 AM EDT [facility] ([facility]) RBC 4.38 4.20 - 5.70 10*6/uL 08/20/2024 5:36 AM EDT [facility] ([facility]) Hemoglobin 13.0 13.0 - 17.0 g/dL 08/20/2024 5:36 AM EDT [facility] ([facility]) Hematocrit 40.3 39.0 - 50.0 % 08/20/2024 5:36 AM EDT [facility] ([facility]) MCV 92.0 82.0 - 98.0 fL 08/20/2024 5:36 AM EDT [facility] ([facility]) MCH 29.7 27.0 - 33.0 pg 08/20/2024 5:36 AM EDT [facility] ([facility]) MCHC 32.3 32.0 - 35.0 g/dL 08/20/2024 5:36 AM EDT [facility] ([facility]) RDW 16.2(H) 11.5 - 15.0 % 08/20/2024 5:36 AM EDT [facility] ([facility]) Neutrophils % 68.1 40.0 - 72.0 % 08/20/2024 5:36 AM EDT [facility] ([facility]) Lymphocytes % 21.1 20.0 - 45.0 % 08/20/2024 5:36 AM EDT [facility] ([facility]) Monocytes % 6.7 5.0 - 12.0 % 08/20/2024 5:36 AM EDT [facility] ([facility]) Eosinophils % 2.4 0.0 - 6.0 % 08/20/2024 5:36 AM EDT [facility] ([facility]) Basophils % 1.3(H) 0.0 - 1.0 % 08/20/2024 5:36 AM EDT [facility] ([facility]) Neutrophils Absolute 6.04 1.60 - 7.60 10*3/uL 08/20/2024 5:36 AM EDT [facility] ([facility]) Lymphocytes Absolute 1.88 1.20 - 4.00 10*3/uL 08/20/2024 5:36 AM EDT [facility] ([facility]) Monocytes Absolute 0.60 0.10 - 1.00 10*3/uL 08/20/2024 5:36 AM EDT [facility] ([facility]) Eosinophils Absolute 0.21 0.00 - 0.50 10*3/uL 08/20/2024 5:36 AM EDT [facility] ([facility]) Basophils Absolute 0.12 0.00 - 0.20 10*3/uL 08/20/2024 5:36 AM EDT [facility] ([facility]) Platelets 232 150 - 400 10*3/uL 08/20/2024 5:36 AM EDT [facility] ([facility]) nRBC % 0.0 0 % 08/20/2024 5:36 AM EDT [facility] ([facility]) Immature Granulocytes % 0.4 0.0 - 1.0 % 08/20/2024 5:36 AM EDT [facility] ([facility]) Immature Granulocytes Absolute 0.04 0.00 - 0.20 10*3/uL 08/20/2024 5:36 AM EDT [facility] ([facility]) Blood Venous blood specimen / Unknown Venipuncture / Unknown 08/20/2024 4:25 AM EDT 08/20/2024 5:19 AM EDT us Bonaventure Carolann MORRIS LAB BLOOD ORDERABLES Final Result [facility] ([facility]) [address] [place] [address] from Last 3 Months Insurance [employer] MED[employer]ARE [employer]VANTAGE Advance Directives * Full Code (Latest Code Status on File) Date Activated Date Inactivated Comments 08/20/2024 2:26 AM 08/22/2024 4:25 PM Care Teams Warp Splitter Relationship Specialty Start Date End Date Gutierrez Morton DO [address] [place] [address] PCP - General Internal Medicine 08/20/24
--- OUTSIDE RECORDS SUMMARY | 2024-10-07 20:48 | XMS_ITS | CCD ---
Author Organization [facility] CliniSymi Care Team Providers Care Credit Underwriter Name Role Phone ADAM ROSSI SANDY (RES) Attending Unavailable Reji Roy Unavailable DO Gutierrez Larry Primary Care Provider MD Reji Roy Attending Provider Reji Roy Admitting Unavailable Reji Roy Attending Unavailable Gutierrez Larry Primary Care Unavailable Reji Roy Admitting Unavailable Reji Roy Attending Unavailable Gutierrez Larry Primary Care Unavailable Reji Roy Admitting Unavailable Reji Roy Attending Unavailable Laron, Gutierrez Primary Care Unavailable BALL, DR BRIDGES Primary [...] Unavailable LAN CHO Attending Unavailable CATHERINE AYOUB Referring Unavailable GUTIERREZ LARRY Primary Care Unavailable Gutierrez Larry MD Primary Care Provider Gutierrez Larry DO Primary Care Provider CATHERINE AYOUB Attending Unavailable GUTIERREZ LARRY Referring Unavailable GUTIERREZ LARRY Primary Care Unavailable CATHERINE AYOUB P Attending Unavailable GUTIERREZ LARRY Referring Unavailable GUTIERREZ LARRY Primary Care Unavailable CATHERINE AYOUB P Attending Unavailable GUTIERREZ LARRY Referring Unavailable GUTIERREZ LARRY Primary Care Unavailable [...] Referring Unavailable MARIA EUGENIA, ALIS Referring Unavailable ANU CINTRON Referring Unavailable CARLITO, BONAVENTGISSELLE Admitting Unavailable CHEVY LUGO Attending Unavailable YESSENIA DELCID Attending Unavailable CARLITO, BONAVENTURE Referring Unavailable RAMOS, MALIKA Referring Unavailable Ball Gutierrez CAMERON Primary Care Provider [phone] Gutierrez Larry DO Attending Provider Anu Cintron MD Attending Provider Roseanne Blanchard CMA Attending Provider Unavaila ble Allergies Allergy Classification Reported Allergen(s) Allergy Type Date of Onset Reaction(s) Facility (20 sources) Doxycycline; Translations: [DOXYCYCLINE] Drug Allergy 07-02-19 19 Hives, Rash [facility] (20 sources) predniSONE; Translations: [prednisone] Drug Allergy 05-22-[address] [facility] (6 sources) Sulfamethoxazole / Trimethoprim Drug Allergy Unknown [employer] Other (20 sources) Tetracycline Drug Allergy 02-19-20 Unknown [facility] (8 sources) Sulfonamides (Antibiotic); Translations: [Sulfa (Sulfonamide Antibiotics)] Allergy to substance 05-22-19 Rash [facility] (1 source) Doxycycline Drug Allergy 05-22-19 [facility] Repository (1 source) Doxycycline Drug Allergy [facility] (1 source) Sulfamethoxazole / Trimethoprim Drug Allergy [facility] (1 source) Sulfonamides (Antibiotic) Drug allergy (disorder) [facility] (1 source) corticosteroid and/or corticosteroid derivative (FN) Drug allergy Unknown [employer] Other (1 source) patient allergy list reviewed by nurse or physicia Propensity to adverse reactions 05-17-19 15 Comment:Done [employer] Other (5 sources) Corticosteroids Allergy to substance 09-16-19 Unknown Reaction [facility] (5 sources) Sulfamethoxazole Drug Allergy 09-16-19 24 Unknown Reaction [facility] (5 sources) Trimethoprim Drug Allergy 09-16-19 Unknown Reaction [facility] (20 sources) Sulfamethoxazole / Trimethoprim; Translations: [SULFAMETHOXAZOLE-T RIMETHOPRIM] Drug Allergy 07-02-19 19 Rash, Unknown [facility] (14 sources) Latex Propensity to adverse reactions 02-17-20 Rash [facility] (2 sources) natural latex rubber; Translations: [LATEX, NATURAL RUBBER] Propensity to adverse reactions to drug (disorder) 02-17-20 [facility] Rep[facility] Medications Current Medications Medication Drug Class(es) Dates Sig (Normalized) Sig (Original) apixaban 5 mg oral tablet (2 sources) Factor Xa Inhibitor Start: 08-23-2024 take 1 tablet by mouth twice daily Apixaban 5 mg tablet Active 5 MG PO Twice daily 60 August 23, 2024 12:00am Complies with drug therapy cholecalciferol 0.05 mg oral capsule (9 sources) Vitamin D cholecalciferol (Vitamin D-3) 50 MCG (1999) capsule 2,000 Units. Active diazePAM 10 mg oral tablet (1 source) Benzodiazepine Start: 02-28-2024 End: 02-28-2024 take 1 tablet by mouth once diazePAM [...] 0.001 mg/mg topical ointment (16 sources) Start: 12-05-2023 End: 02-26-2024 gentamicin (GARAMYCIN) 0.1 % ointment Indications: Venous stasis ulcer of left ankle limited to breakdown of skin with varicose veins ([facility]) Apply topically once daily 15 g 02/14/2024 02/26/2024 Discontinued (Therapy completed) 24 hr metoprolol succinate 25 mg extended release oral tablet (2 sources) beta-Adrenergic Jaylin Start: 08-23-2024 take 1 tablet by mouth once daily Metoprolol Succinate 25 mg tablet extended release 24 hr Active 25 MG PO Daily August 23, 2024 12:00am Complies with drug therapy [facility] Natural Products (PROSTATE SUPPORT PO) (9 sources) Mis Natural Products (PROSTATE SUPPORT PO) Take by mouth Active Neuriva (6 sources) Start: 10-12-2019 take 1 capsule by mouth once daily at bedtime Neuriva Active 1 CAP PO Daily at bedtime October 12, 2019 12:00am Complies with drug therapy Start: 10-12-2019 take 1 capsule by mo uth once daily at bedtime Neuriva Active 1 CAP PO Daily at bedtime October 12, 2019 12:00am Start: 10-12-2019 take 1 capsule by mo uth once daily at bedtime Neuriva Active 1 CAP PO Daily at bedtime October 11, 2019 11:00pm Prevagen (6 sources) Prevagen Active tiZANidine 4 mg oral tablet (14 sources) Central alpha-2 Adrenergic Agonist Start: 09-16-19 take 1 tablet by mouth once daily at bedtime as needed Tizanidine 4 mg tablet Active 4 MG PO Daily at bedtime as needed for muscle spasticity 02 04September 16, 2023 12:00am Complies with drug therapy triamcinolone acetonide 1 mg/ml topical cream (9 sources) Corticosteroid Start: 02-19-20 End: 04-10-19 25 triamcinolone (KENALOG) 0.1 % cream Indications: Venous stasis ulcer of left ankle limited to breakdown of skin with varicose veins [facility] Once daily application, apply a thin layer [...] / oxyCODONE hydrochloride 5 mg oral tablet (6 sources) Opioid Agonist Start: 02-19-2019 End: 03-04-2019 take 2 tablets by mouth every six hours as needed for pain Oxycodone-Acetamin ophen 5-325 mg tablet Discontinued 2 TAB PO Q6H as needed for Pain February 19, 2019 1:00am March 04, 2019 10:19am amoxicillin 500 mg oral capsule (8 sources) Penicillin-class Antibacterial Start: 02-13-2024 End: 07-27-2024 Amoxicillin 500 mg capsule Discontinued 2000 MG PO As Directed 4 February 19, 2024 1:29pm July 27, 2024 10:00pm azithromycin 250 mg oral tablet (8 sources) Macrolide Antimicrobial Start: 08-28-2024 End: 10-06-2024 take 2 tablets by mouth every other day Azithromycin (Zithromax) 250 mg tablet Discontinued 250 MG PO .QOD August 28, 2024 12:00am October 06, 2024 9:02am start on day 2 of therapy Start: 07-28-2024 End: 08-23-2024 take 1 tablet by mouth every other day Azithromycin 250 mg tablet Discontinued 250 MG PO .QOD July 28, 2024 12:00am August 23, 2024 6:35pm Start: 07-07-2020 End: 12-04-2023 Azithromycin 250 MG as direc destin Orally daily for 5 days Jul, Active betamethasone 0.0005 mg/mg topical ointment (1 source) Corticosteroid Start: 07-07-2020 End: 12-04-2023 betamethasone dipropionate (DIPROLENE) 0.05 % ointment APPLY TO AFFECTED AREA OF ITCHY SKIN TWICE A DAY 07/07/2020 12/04/2023 Discontinued (Therapy completed) cephalexin 500 mg oral capsule (12 sources) Cephalosporin Antibacterial Start: 10-19-2019 End: 05-22-2021 [...] completed) cyclobenzaprine hydrochloride 10 mg oral tablet (6 sources) Muscle Relaxant Start: 03-04-2019 End: 09-10-2019 take 1 tablet by mouth three times daily as needed for muscle spasms Cyclobenzaprine 10 mg tablet Discontinued 10 MG PO Three times daily as needed for back spasms 50 March 04, 2019 1:00am September 10, 2019 11:14am ammonium lactate 120 mg/ml topical cream (5 sources) Start: 07-28-2024 End: 08-28-2024 Ammonium Lactate 12 % cream Discontinued APPLIC TOPICAL July 28, 2024 12:00am August 28, 2024 9:25am Start: 2024 End: 2025 ammonium lactate (Amlactin) 12 % cream Indications: Corns and callosities Apply topically Daily 140 g 3 2024 2025 Active Lactobacillus Comb No.10 (Probiotic) 20 billion cell Capsule (6 sources) Start: 02-19-2019 End: 09-10-2019 take 1 [...] practitioner for pain control. melatonin 5 mg chewable tablet (20 sources) Start: 02-19-2019 End: 09-16-2023 take 2 tablets by mouth at bedtime as needed for sleep Melatonin 5 mg Tablet,Chewable Discontinued 10 MG PO Bedtime as needed for Sleep February 19, 2019 1:00am September 16, 2023 10:10am Start: 02-19-2019 End: 09-16-2023 take 2 tablets [...] Start: 05-28-2022 take 1 capsule by mo [facility] once daily Minocin 100 MG 1 capsule [...] 11:00pm January 25, 2020 4:08pm Multivitamin Tablet,Chewable (4 sources) Start: 09-10-2019 End: 01-25-2020 take 1 tablet by mouth once daily Multivitamin Tablet,Chewable Discontinued 1 TAB PO Daily September 10, 2019 12:00am January 25, 2020 5:08pm omeprazole 40 mg delayed release oral capsule (20 sources) Proton Pump Inhibitor Start: 05-23-2021 End: 08-04-2024 take 1 capsule by mouth once daily Omeprazole 40 mg capsule,delayed release(DR/EC) Discontinued 40 MG PO Daily 90 90 June 12, 2023 4:07pm August 04, 2024 8:47am take 1 capsule by mo ut once daily before breakfast omeprazole (PriLOSEC) 10 mg capsule Take 1 capsule (10 mg total) by mouth every morning before breakfast. Active oxyCODONE hydrochloride 5 mg oral capsule (12 sources) Opioid Agonist Start: 10-19-2019 End: 05-22-2021 take 5-10 mg by mouth every six hours as needed for pain Oxycodone 5 mg capsule Discontinued 5 - 10 MG PO Q6H as needed for pain 30 October 19, 2019 May 22, 2021 4:10pm Start: 03-04-2019 End: 09-10-2019 take 5-10 mg by mouth every six hours as needed for pain Oxycodone 5 mg capsule Discontinued 5 - 10 MG PO Q6H as needed for pain 60 March 04, 2019 September 10, 2019 11:15am [...] of ureter] Onset: 10-22-2018 Episodic Cardiac dysrhythmias (16 sources) Atrial flutter; Translations: [Unspecified atrial flutter] Onset: 08-20-2024 08-27-2024 Chronic Comment on above: Holter: 07/2024- fast est rate 211, slowest rate 40- Ventricular ectopy burden < 1%- 9 episodes of VT w/ longest duration of 10 beats- SVE burden of 6%- 1,158 PSVT w/ fastest rate 211 bpm and longest duration 6min 11sec. s/p Ablation - ,CHADs VASc - 2 (age, HTN),Stress test: Lexiscan w/o EKG changes - 09/2024,Stress NM imaging: no reversible defect, LVEF 50%, no TID - 09/2024 Holter: 07/2024- fast est rate 211, slowest rate 40- Ventricular ectopy burden < 1%- 9 episodes of VT w/ longest duration of 10 beats- SVE burden of 6%- 1,158 PSVT w/ fastest rate 211 bpm and longest duration 6min 11sec.Stress test: Lexiscan w/o EKG changes - 09/2024 Cardiac dysrhythmias (7 sources) Palpitations; Translations: [Palpitations] 07-27-2024 Episodic Chronic ulcer of skin (7 sources) Ankle ulcer; Translations: [Ulcer of ankle] Onset: 04-10-2018 01-22-2024 Chronic Conditions associated with dizziness or vertigo (1 source) Benign paroxysmal positional vertigo; Translations: [Benign paroxysmal vertigo, bilateral] Episodic Deficiency and other anemia (1 source) Chronic anemia; Translations: [Anemia in other chronic diseases classified elsewhere] Chronic Deficiency and other anemia (2 sources) Anemia; Translations: [Anemia, unspecified] 10-06-2024 Episodic Diabetes mellitus without complication (6 sources) Impaired fasting glucose; Translations: [Impaired fasting glycemia] Onset: 06-04-2022 Episodic Disorders of lipid metabolism (3 sources) Pure hypercholesterolemia; Translations: [Pure hypercholesterolemia, unspecified] Onset: 05-01-2018 10-06-2024 Chronic Esophageal disorders (20 sources) Stricture of esophagus; Translations: [Esophageal obstruction] Onset: 05-31-2022 Chronic Esophageal disorders (6 sources) Esophagitis; Translations: [Esophagitis] Episodic Esophageal disorders (1 source) Esophageal disorders; Translations: [Gastro-esophageal reflux disease with esophagitis, without bleeding] Essential hypertension (5 sources) Hypertensive disorder; Translations: [Essential (primary) hypertension] [...] region] Episodic Other aftercare (2 sources) Other longterm (current) drug therapy; Translations: [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] Onset: 06-04-2022 Episodic Other circulatory disease (3 sources) Elevated blood-pressure reading without diagnosis of hypertension; [...] [Pain in left foot] 2024 Episodic Other connective tissue disease (1 source) Muscle weakness of limb; Translations: [Other symptoms and signs involving the musculoskeletal system] 09-15-2024 Episodic Other diseases of veins and lymphatics [...] cerumen, right ear] Episodic Other gastrointestinal disorders (12 sources) Dysphagia; Translations: [Dysphagia, unspecified] 09-11-2019 Episodic [...] Onset: 12-03-2018 Chronic Other nervous system disorders (4 sources) Peripheral nerve disease ; Translations: [Polyneuropathy, [...] conditions (not mental disorders or infectious disease) (15 sources) Encounter for screening for malignant neoplasm [...] Spondylosis; intervertebral disc disorders; other back problems (19 sources) Spinal stenosis of lumbar region; Translations: [...] Test Name Value Interpretation Reference Range Facility 36on 09-18-2024 36 Regarding stress hiwot t result from 09/14/2024: Please let him know his stress test was normal. Follow up as planned with Dr. Phoenix. Thanks! Spoke with patient and made him aware. [facility] Orders Onlyon 09-17-2024 Orders Only [id number] Robert Nicole 1950 M Date Provider Department Center 09/17/2024 [id number], HISTORICAL ALBERTO Vasquez Family History Family Status - Relation Status Age at Mother Father [facility] Office Visiton 08-25-2024 Follow-up visit [id number] Robert Nicole 1950 M Date Provider Department Center 08/25/2024 166-YESSENIA DELCID ALBERTO Vasquez Family History Family Status - Relation Status Age at Mother Father Level of Service:70183 [place] OFFICE/OUTPATIENT ESTABLISHED HIGH MDM 40 MIN Reason for Visit and Comments: Atrial Flutter [101] Hospital Follow-up [832] [facility] 30on 08-22-2024 30 Daily Case Managemen t Update Multidisciplinary rounds have been completed. Barriers to Discharge: Patient is medically ready for hospital discharge at this time. AVS has been completed, and primary RN has been notified of patients discharge readiness. Cardiology follow up appointment requested via [facility]. Patient will discharge to home and will arrange for own discharge transportation. No further OTM needs identified at this time. [facility] will continue to follow patient and assist with any further discharge related needs. Diet: Dietary Orders (From admission, onward) Start Ordered 08/21/24 161 Regular Diet Diet effective now Question: Room Service? Answer: Yes 08/21/24 1610 08/20/24 1707 Special Kitchen Request Once Comments: Plz send dinner at 1815. Pt would like a turkey burger with lettuce, ketchup, villatoro, mustard. [place], mashed sweet potatoes, bon alexandra 08/20/24 17008/20/24 1349 Special Kitchen Request Once Comments: Hot [...] OT? Answer: eval and treat 08/20/24224 Normal [facility] 30 The patient is Moderately Stable - Low risk of patient condition declining or worsening The patient's goals for the shift include comfort The clinical goals for the shift include vss Over the shift, the patient did not make progress toward the following goals. Barriers to progression include na. Recommendations to address these barriers include na. Normal [facility] CBCon 08-22-2024 Erythrocyte distribution width (RBC) [Ratio] 16.2 % High 11.5-15.0 [facility] Comment on above: Performed By: #### L [id number] ####[facility] ([facility])[address] [place] [address] ERYTHROCYTE MEAN CORPUSCULAR HEMOGLOBIN CONCENTRATION (G/DL) BY AUTOMATED 32.3 g/dL Normal 32.0-35.0 [facility] Comment on above: Performed By: #### L [id number] ####[facility] ([facility])[address] [place] [address] Hematocrit (Bld) [Volume fraction] 41.2 % Normal 39.0-50.0 [facility] Comment on above: Performed By: #### L [id number] ####[facility] ([facility])[address] [place] [address] Hemoglobin (Bld) [Mass/Vol] 13.3 g/dL Normal 13.0-17.0 [facility] Comment on above: Performed By: #### L [id number] ####[facility] ([facility])[address] [place], [place] [address] MCH (RBC) [Entitic mass] 29.8 pg Normal 27.0-33.0 [facility] Comment on above: Performed By: #### L [id number] ####[facility] ([facility])[address] [place] [address] MCV (RBC) [Entitic vol] 92.4 fL Normal 82.0-98.0 [facility] Comment on above: Performed By: #### L [id number] ####[facility] ([facility])[address] [place] [address] PLATELETS (10*3/UL) IN BLOOD AUTOMATED COUNT 241 10*3/uL Normal 150-400 [facility] Comment on above: Performed By: #### L [id number] ####[facility] ([facility])[address] [place] [address] RBC (Bld) [#/Vol] 4.46 10*6/uL Normal 4.20-5.70 [facility] Comment on above: Performed By: #### L [id number] ####[facility] ([facility] [place] [address] WBC (Bld) [#/Vol] 9.06 10*3/uL Normal 4.00-10.60 [facility] Comment on above: Performed By: #### L [id number] ####[facility] ([facility])[address] [place] [address] COMPREHENSIVE METABOLIC PANE Karthikeyan 08-22-2024 Albumin [Mass/Vol] 3.6 g/dL Normal 3.5-5.7 [facility] Comment on above: Performed By: #### L [id number] #### [facility] ([facility]) [address] [place] [address] ALP [Catalytic activity/Vol] 57 U/L Normal 34-104 [facility] Comment on above: Performed By: #### L [id number] #### [facility] ([facility]) [address] [place] [address] ALT [Catalytic activity/Vol] 12 U/L Normal 7-52 [facility] Comment on above: Performed By: #### L [id number] #### [facility] ([facility]) [address] [place] [address] Anion gap [Moles/Vol] 8 mmol/L Normal 7-20 [facility] Comment on above: Performed By: #### L [id number] #### [facility] ([facility]) [address] [place] [address] AST [Catalytic activity/Vol] 15 U/L Normal 13-39 [facility] Comment on above: Performed By: #### L [id number] #### [facility] ([facility]) [address] [place] [address] Bilirubin [Mass/Vol] 0.5 mg/dL Normal 0.3-1.0 [facility] Comment on above: Performed By: #### L [id number] #### [facility] ([facility]) [address] [place] [address] Calcium [Mass/Vol] 8.5 mg/dL Low 8.6-10.3 [facility] Comment on above: Performed By: #### L [id number] #### [facility] ([facility]) [address] [place] [address] Chloride [Moles/Vol] 107 mmol/L Normal 98-107 [facility] Comment on above: Performed By: #### L [id number] #### [facility] ([facility]) [address] [place] [address] CO2 [Moles/Vol] 29 mmol/L Normal 21-31 [facility] Comment on above: Performed By: #### L [id number] #### [facility] ([facility]) [address] [place] [address] Creatinine [Mass/Vol] 1.07 mg/dL Normal 0.70-1.30 [facility] Comment on above: Performed By: #### L [id number] #### [facility] ([facility]) [address] [place] [address] GLOMERULAR FILTRATION RATE ML/MIN/1.73 SQ M.PREDICTED 72.8 mL/min/1.73m*2 Normal >60.0 [facility] Comment on above: Result Comment: The [facility]???s estimated glomerular filtration rate (eGFR) will [...] individuals. Performed By: #### L [id number] #### [facility] ([facility]) [address] [place] [address] Glucose [Mass/Vol] 97 mg/dL Normal 70-100 [facility] Comment on above: Performed By: #### L [id number] #### [facility] ([facility]) [address] [place] [address] Potassium [Moles/Vol] 4.3 mmol/L Normal 3.5-5.1 [facility] Comment on above: Performed By: #### L [id number] #### [facility] ([facility] [address] [place] [place] [address] Protein [Mass/Vol] 6.7 g/dL Normal 6.0-8.3 [facility] Comment on above: Performed By: #### L [id number] #### [facility] ([facility]) [address] [place] [address] Sodium [Moles/Vol] 140 mmol/L Normal 136-145 [facility] Comment on above: Performed By: #### L [id number] #### [facility] ([facility]) [address] [place] [place] [address] Urea nitrogen [Mass/Vol] 16 mg/dL Normal 7-25 [facility] Comment on above: Performed By: #### L [id number] #### [facility] ([facility]) [address] [place] [address] UREA NITROGEN/CREATININE (MASS RATIO) IN SER/PLAS 15.0 Normal [facility] Comment on above: Performed By: #### L [id number] #### [facility] ([facility]) [address] [place] [place] [address] MAGNESIUMon 08-22-2024 Magnesium [Mass/Vol] 2.2 mg/dL Normal 1.9-2.7 [facility] Comment on above: Performed By: #### L [id number] #### [facility] ([facility]) [address] [place] [address] ANESon 08-21-2024 ANES -- Attestation signed by [...] Ablation Haim Wright MD, ScM, MSc [employer] Email: [email or web address] Patient: Rebeca Nicole Procedure Information Date/Time: 08/21/24 1305 Procedure: Ablation atrial flutter Location: [facility] 1 EP / [facility] (Cath) Providers: Haim Wright [...] attending and fellow. Additional Equipment Requests Normal [facility] HPon 08-21-2024 HP H&P reviewed. The patient was examined and there are no changes to the H&P. Normal [facility] OPNOTEon 08-21-2024 OPNOTE Ablation atrial flutter Operative Note Date: 08/21/2024 Location: [facility] (Cath) Name: Rebeca Nicole, : 1950, Diagnosis Pre-op Diagnosis * Atrial flutter, unspecified type (CMS/HCC) [I48.92] Post-op Diagnosis * Atrial flutter, unspecified type (CMS/HCC) [I48.92] Procedures Ablation atrial flutter 91933 - [place] OFFICE/OUTPT VISIT,PROCEDURE ONLY Surgeons Primary: Haim Wright MD Assisting: Magdy Phoenix MD Procedure Summary Anesthesia: Moderate Sedation ASA: ASA status not filed in the log. Estimated Blood Loss: 20 mL Total IV Fluids: 100 ml Drains: * None in log * Staff: Credit Assistant: RT Neville Scrub Person: DEV Toribio Documenter: Le Norman RN Invasive Nurse: Catherine Larry RN; Juliane Greenwood RN Indications: Rebeca Nicole is an 74 y.o. male who is having surgery for Atrial flutter, unspecified type ([facility]/HCC) [I48.92]. Procedure Details: The patient was seen [...] - hemodynamically stable. Condition: stable Haim Wright [facility] 30on 08-20-2024 30 The patient is Moderately Stable - Low risk of patient condition declining or worsening The patient's goals for the shift include comfort The clinical goals for the shift include VSS Over the shift, the patient did not make progress toward the following goals. Barriers to progression include na. Recommendations to address these barriers include na. Normal [facility] 30 Problem: Pain - Adul t Goal: Verbalizes/displays adequate comfort level or baseline comfort level Outcome: Progressing Problem: Safety - Adult Goal: Free from fall injury Outcome: Progressing Flowsheets (Taken 08/20/2024200) Free from fall injury: Assess patient frequently for physical needs Identify cognitive and physical deficits and behaviors that affect risk of falls [place] fall precautions as indicated by assessment Instruct [...] goals for the shift include VSS Normal [facility] 30 The patient is Moderately Stable - Low risk of patient condition declining or worsening The patient's goals for the shift include comfort The clinical goals for the shift include VSS Normal [facility] CBC WITH AUTO DIFFERENTIALon 08-20-2024 Basophils (Bld) [#/Vol] 0.12 10*3/uL Normal 0.00-0.20 [facility] Comment on above: Performed By: #### L [id number] #### [facility] (BEAKER) [address] [place] [address] Basophils/100 WBC (Bld) 1.3 % High 0.0-1.0 [facility] Comment on above: Performed By: #### L [id number] #### [facility] (BEAKER) [address] [place] [address] Eosinophils (Bld) [#/Vol] 0.21 10*3/uL Normal 0.00-0.50 [facility] Comment on above: Performed By: #### L [id number] #### [facility] ([facility] [address] [place] [address] Eosinophils/100 WBC (Bld) 2.4 % Normal 0.0-6.0 [facility] Comment on above: Performed By: #### L [id number] #### [facility] ([facility] [address] [place] [address] Erythrocyte distribution width (RBC) [Ratio] 16.2 % High 11.5-15.0 [facility] Comment on above: Performed By: #### L [id number] #### [facility] ([facility]) [address] [place] [address] ERYTHROCYTE MEAN CORPUSCULAR HEMOGLOBIN CONCENTRATION (G/DL) BY AUTOMATED 32.3 g/dL Normal 32.0-35.0 [facility] Comment on above: Performed By: #### L [id number] #### [facility] ([facility]) [address] [place] [address] Hematocrit (Bld) [Volume fraction] 40.3 % Normal 39.0-50.0 [facility] Comment on above: Performed By: #### L [id number] #### [facility] ([facility]) [address] [place] [address] Hemoglobin (Bld) [Mass/Vol] 13.0 g/dL Normal 13.0-17.0 [facility] Comment on above: Performed By: #### L [id number] #### [facility] ([facility] [address] [place] [address] Immature granulocytes (Bld) [#/Vol] 0.04 10*3/uL Normal 0.00-0.20 [facility] Comment on above: Performed By: #### L [id number] #### [facility] (BEAKER) [address] [place] [address] Immature granulocytes/100 WBC (Bld) 0.4 % Normal 0.0-1.0 [facility] Comment on above: Performed By: #### L [id number] #### [facility] ([facility] [address] [place] [address] Lymphocytes (Bld) [#/Vol] 1.88 10*3/uL Normal 1.20-4.00 [facility] Comment on above: Performed By: #### L [id number] #### [facility] ([facility]) [address] [place] [address] Lymphocytes/100 WBC (Bld) 21.1 % Normal 20.0-45.0 [facility] Comment on above: Performed By: #### L [id number] #### [facility] ([facility]) [address] [place] [address] MCH (RBC) [Entitic mass] 29.7 pg Normal 27.0-33.0 [facility] Comment on above: Performed By: #### L [id number] #### [facility] ([facility]) [address] [place] [address] MCV (RBC) [Entitic vol] 92.0 fL Normal 82.0-98.0 [facility] Comment on above: Performed By: #### L [id number] #### [facility] ([facility]) [address] [place] [address] Monocytes (Bld) [#/Vol] 0.60 10*3/uL Normal 0.10-1.00 [facility] Comment on above: Performed By: #### L [id number] #### [facility] ([facility]) [address] [place] [address] Monocytes/100 WBC (Bld) 6.7 % Normal 5.0-12.0 [facility] Comment on above: Performed By: #### L [id number] #### [facility] ([facility]) [address] [place] [address] Neutrophils (Bld) [#/Vol] 6.04 10*3/uL Normal 1.60-7.60 [facility] Comment on above: Performed By: #### L [id number] #### [facility] ([facility]) [address] [place] [address] Neutrophils/100 WBC (Bld) 68.1 % Normal 40.0-72.0 [facility] Comment on above: Performed By: #### L [id number] #### [facility] ([facility]) [address] [place] [address] NRBC (PER 100 WBCS) BY AUTOMATED COUNT 0.0 % Normal 0 [facility] Comment on above: Performed By: #### L [id number] #### [facility] ([facility]) [address] [place] [address] PLATELETS (10*3/UL) IN BLOOD AUTOMATED COUNT 232 10*3/uL Normal 150-400 [facility] Comment on above: Performed By: #### L [id number] #### [facility] ([facility]) [address] [place] [address] RBC (Bld) [#/Vol] 4.38 10*6/uL Normal 4.20-5.70 [facility] Comment on above: Performed By: #### L [id number] #### [facility] ([facility]) [address] [place] [address] WBC (Bld) [#/Vol] 8.89 10*3/uL Normal 4.00-10.60 [facility] Comment on above: Performed By: #### L [id number] #### [facility] ([facility]) [address] [place] [address] COMPREHENSIVE METABOLIC PANE Karthikeyan 08-20-2024 Albumin [Mass/Vol] 3.6 g/dL Normal 3.5-5.7 [facility] Comment on above: Performed By: #### L [id number] ####[facility] ([facility])[address] [place] [address] ALP [Catalytic activity/Vol] 55 U/L Normal 34-104 [facility] Comment on above: Performed By: #### L [id number] ####[facility] ([facility])[address] [place] [address] ALT [Catalytic activity/Vol] 15 U/L Normal 7-52 [facility] Comment on above: Performed By: #### L [id number] ####[facility] ([facility])[address] [place] [address] Anion gap [Moles/Vol] 10 mmol/L Normal 7-20 [facility] Comment on above: Performed By: #### L [id number] ####[facility] ([facility])[address] [place] [address] AST [Catalytic activity/Vol] 15 U/L Normal 13-39 [facility] Comment on above: Performed By: #### L [id number] ####[facility] ([facility])[address] [place] [address] Bilirubin [Mass/Vol] 0.8 mg/dL Normal 0.3-1.0 [facility] Comment on above: Performed By: #### L [id number] ####[facility] ([facility])[address] [place] [address] Calcium [Mass/Vol] 8.6 mg/dL Normal 8.6-10.3 [facility] Comment on above: Performed By: #### L [id number] ####[facility] ([facility])[address] [place] [address] Chloride [Moles/Vol] 105 mmol/L Normal 98-107 [facility] Comment on above: Performed By: #### L [id number] ####[facility] ([facility] [place] [address] CO2 [Moles/Vol] 28 mmol/L Normal 21-31 [facility] Comment on above: Performed By: #### L [id number] ####[facility] (BEAKER)[address] [place] [address] Creatinine [Mass/Vol] 0.90 mg/dL Normal 0.70-1.30 [facility] Comment on above: Performed By: #### L [id number] ####[facility] ([facility] [place] [address] GLOMERULAR FILTRATION RATE ML/MIN/1.73 SQ M.PREDICTED 89.6 mL/min/1.73m*2 Normal >60.0 [facility] Comment on above: Result Comment: The [facility]???s estimated glomerular filtration rate (eGFR) will [...] of individuals. Performed By: #### L [id number] ####[facility] ([facility])[address] [place] [address] Glucose [Mass/Vol] 88 mg/dL Normal 70-100 [facility] Comment on above: Performed By: #### L [id number] ####[facility] ([facility])[address] [place] [address] Potassium [Moles/Vol] 3.7 mmol/L Normal 3.5-5.1 [facility] Comment on above: Performed By: #### L [id number] ####[facility] ([facility])[address] [place] [address] Protein [Mass/Vol] 6.5 g/dL Normal 6.0-8.3 [facility] Comment on above: Performed By: #### L [id number] ####[facility] (BEAKER)[address] [place] [address] Sodium [Moles/Vol] 139 mmol/L Normal 136-145 [facility] Comment on above: Performed By: #### L [id number] ####[facility] (BEAKER)[address] [place] [address] Urea nitrogen [Mass/Vol] 15 mg/dL Normal 7-25 [facility] Comment on above: Performed By: #### L [id number] ####[facility] (BEAKER)[address] [place] [address] UREA NITROGEN/CREATININE (MASS RATIO) IN SER/PLAS 16.7 Normal [facility] Comment on above: Performed By: #### L [id number] ####[facility] ([facility]OLU)[address] [place] [address] CONSULTon 08-20-2024 CONSULT -- Attestation signed by [...] EPS and see what can be induced. [place] [facility] Reason for consultation: Ventricular [...] Utilities: Not At Risk (08/20/2024) [facility] Utilities Threatened with loss of utilities: No [...] depression, feeling (more content not included)... Normal [facility] CONSULT -- Attestation signed by Giovani [...] HTN and obesity who was transferred from [place] to [facility] for SVT and PVCs on [...] vomiting, fever. He had an echo at [facility] which was unremarkable per the patient. Vitals [...] Temp src Pulse Resp SpO2 Height Weight 05/15/25 0800 133/87 -- -- 64 16 95 [...] Value Ventricular Rate 55 Atrial Rate 55 KS Interval 180 QRS DURATION 104 QT Interval 456 QTC CALCULATION(BAZETT) 436 P Kerrick 41 R-Kerrick 1 T Wave Kerrick 34 Impression Sinus bradycardia with occasional Premature [...] least in part, completed using a voice line lead system. Every effort was made to ensure accuracy. However, inadvertent computerized line lead errors may be present. Dileep Alvarenga (more content not included)... Normal [facility] HIGH SENSITIVITY TROPONIN Io n 08-20-2024 HS TROPONIN I (NG/L) 5 ng/L Normal <20 [facility] Comment on above: Performed By: #### L [id number] ####[facility] ([facility])[address] [place] [address] HPon 08-20-2024 HP -- Attestation signed by [...] EPS and see what can be induced. [place] [facility] Reason for consultation: Ventricular [...] Utilities: Not At Risk (08/20/2024) [facility] Utilities Threatened with loss of utilities: No [...] depression, feeling (more content not included)... Normal [facility] Basophils Auto (Bld) [#/Vol] on 08-19-2024 Basophils (Bld) [#/Vol] Automated basophil count 0.0-0.1 [facility] Basophils (Bld) [#/Vol] 0.1 10 3/uL 0.0-0.1 [facility] Basophils/100 WBC Auto (Bld) on 08-19-2024 Basophils/100 WBC (Bld) Automated basophil % 0.2-2.0 [facility] Basophils/100 WBC (Bld) 1.5 % 0.2-2.0 [facility] Eosinophils/100 WBC Auto (Bl d)on 08-19-2024 Eosinophils/100 WBC (Bld) Automated eosinophil % 0.9-7.0 [facility] Eosinophils/100 WBC (Bld) 2.5 % 0.9-7.0 [facility] Erythrocyte distribution wid th Auto (RBC) [Ratio]on 08-19-2024 Erythrocyte distribution width (RBC) [Ratio] Erythrocyte distribution width [Ratio] by Automated count High 11.0-15.0 [facility] Erythrocyte distribution width (RBC) [Ratio] 16.1 % High 11.0-15.0 [facility] Estimated glomerular filtrat ion rate (GFR) non- Americanon 08-19-2024 GFR/1.73 sq M.predicted among non-blacks MDRD (S/P/Bld) [Vol rate/Area] Estimated glomerular filtration rate (GFR) non- Low >=60 mL/min/1.73m 2 [facility] GFR/1.73 sq M.predicted among non-blacks MDRD (S/P/Bld) [Vol rate/Area] 58 mL/min/{1.73_m2} Low >=60 mL/min/1.73m 2 [facility] Fibrin D-dimer [Presence] in Platelet poor plasma by Latex agglutinationon 08-19-2024 Fibrin D-dimer LA Ql (PPP) Fibrin D-dimer [Presence] in Platelet poor plasma by Latex agglutination <=0.59 [facility] Comment on above: Increases in D-Dimer [...] diabetes, thrombolyticor anticoagulant therapy, stress, and generalizedhospitalization. Fibrin D-dimer LA Ql (PPP) 0.51 mg/L FEU <=0.59 [facility] Comment on above: Increases in D-Dimer [...] of Blood by Automated count Low 42.0-54.0 [facility] Hematocrit (Bld) [Volume fraction] 41.2 % Low 42.0-54.0 [facility] Hemoglobin [Mass/volume] in Bloodon 08-19-2024 Hemoglobin (Bld) [Mass/Vol] Hemoglobin [Mass/volume] in Blood Low 14.0-18.0 [facility] Hemoglobin (Bld) [Mass/Vol] 13.6 g/dL Low 14.0-18.0 [facility] Laboratory - Chemistry and C hemistry - challengeon 08-19-2024 Calcium [Mass/Vol] 8.8 mg/dL 8.5-10.1 [facility] Chloride [Moles/Vol] 103 mmol/L 98-107 [facility] CO2 [Moles/Vol] 29.4 mmol/L 21.0-32.0 [facility] Creatinine [Mass/Vol] 1.23 mg/dL 0.70-1.30 [facility] GFR/1.73 sq M.predicted MDRD (S/P/Bld) [Vol rate/Area] mL/min/{1.73_m2} >=60 mL/min/1.73m 2 [facility] Glucose [Mass/Vol] 94 mg/dL 74-106 [facility] Natriuretic peptide B (Bld) [Mass/Vol] 147.0 pg/mL <=900.0 [facility] Potassium [Moles/Vol] 3.8 mmol/L 3.5-5.1 [facility] Sodium [Moles/Vol] 139 mmol/L 136-145 [facility] Urea nitrogen [Mass/Vol] 17.0 mg/dL 7.0-18.0 [facility] Urea nitrogen/Creatinine [Mass ratio] 13.8 mg/mg [facility] Laboratory - Hematology and Cell countson 08-19-2024 Immature granulocytes/100 WBC (Bld) 0.2 % 0.0-0.5 [facility] Leukocytes [#/volume] correc destin for nucleated erythrocytes in Blood by Automated counon 08-19-2024 WBC corrected for nucl RBC Auto (Bld) [#/Vol] Leukocytes [#/volume] corrected for nucleated erythrocytes in Blood by Automated coun 4.0-11.0 [facility] WBC corrected for nucl RBC Auto (Bld) [#/Vol] 9.2 10 3/uL 4.0-11.0 [facility] Lymphocytes Auto (Bld) [#/Vo l]on 08-19-2024 Lymphocytes (Bld) [#/Vol] Lymphocytes [#/volume] in Blood by Automated count 1.2-3.8 [facility] Lymphocytes (Bld) [#/Vol] 1.9 10 3/uL 1.2-3.8 [facility] Lymphocytes/100 WBC Auto (Bl d)on 08-19-2024 Lymphocytes/100 WBC (Bld) Lymphocytes/100 leukocytes in Blood by Automated count Low 20.5-60.0 [facility] Lymphocytes/100 WBC (Bld) 20.4 % Low 20.5-60.0 [facility] MCH Auto (RBC) [Entitic mass ]on 08-19-2024 MCH (RBC) [Entitic mass] MCH [Entitic mass] by Automated count 25.9-34.0 [facility] MCH (RBC) [Entitic mass] 30.1 pg 25.9-34.0 [facility] MCHC Auto (RBC) [Mass/Vol]on 08-19-2024 MCHC (RBC) [Mass/Vol] MCHC [Mass/volume] by Automated count 29.9-35.2 [facility] MCHC (RBC) [Mass/Vol] 33.0 g/dL 29.9-35.2 [facility] MCV Auto (RBC) [Entitic vol] on 08-19-2024 MCV (RBC) [Entitic vol] MCV [Entitic volume] by Automated count 80.0-94.0 [facility] MCV (RBC) [Entitic vol] 91.2 fL 80.0-94.0 [facility] Monocytes Auto (Bld) [#/Vol] on 08-19-2024 Monocytes (Bld) [#/Vol] Automated blood monocyte count 0.3-0.8 [facility] Monocytes (Bld) [#/Vol] 0.6 10 3/uL 0.3-0.8 [facility] Monocytes/100 WBC Auto (Bld) on 08-19-2024 Monocytes/100 WBC (Bld) Automated monocyte % 1.7-12.0 [facility] Monocytes/100 WBC (Bld) 6.7 % 1.7-12.0 [facility] Neutrophils Auto (Bld) [#/Vo l]on 08-19-2024 Neutrophils (Bld) [#/Vol] Neutrophils [#/volume] in Blood by Automated count 1.4-6.5 [facility] Neutrophils (Bld) [#/Vol] 6.3 10 3/uL 1.4-6.5 [facility] Neutrophils/100 WBC Auto (Bl d)on 08-19-2024 Neutrophils/100 WBC (Bld) Automated neutrophil % 43.0-75.0 [facility] Neutrophils/100 WBC (Bld) 68.7 % 43.0-75.0 [facility] No Panel Informationon 08-19 Eosinophils # (Auto) 0.2 10 3/uL 0.0-0.7 [facility] Immature Granulocyte # (Auto) 0.02 10 3/uL 0.00-0.03 [facility] Troponin I High Sensitivity 6.7 pg/mL 4.0-76.1 [facility] Comment on above: CUT-OFF POINTS HAVE [...] in Blood by Automated count Low 9.5-13.5 [facility] Platelet mean volume (Bld) [Entitic vol] 8.4 fL Low 9.5-13.5 [facility] Platelets Auto (Bld) [#/Vol] on 08-19-2024 Platelets (Bld) [#/Vol] Platelets [#/volume] in Blood by Automated count 150-450 [facility] Platelets (Bld) [#/Vol] 244 10 3/uL 150-450 [facility] RBC Auto (Bld) [#/Vol]on RBC (Bld) [#/Vol] Erythrocytes [#/volume] in Blood by Automated count Low 4.70-6.10 [facility] RBC (Bld) [#/Vol] 4.52 10 6/uL Low 4.70-6.10 [facility] Serum or plasma anion gap de terminationon 08-19-2024 Anion gap [Moles/Vol] Serum or plasma an ion gap determination [facility] Anion gap [Moles/Vol] 10.4 mmol/L [facility] Basophils Auto (Bld) [#/Vol] on 07-30-2024 Basophils (Bld) [#/Vol] Automated basophil count 0.0-0.1 [facility] Basophils (Bld) [#/Vol] 0.1 10 3/uL 0.0-0.1 [facility] Basophils/100 WBC Auto (Bld) on 07-30-2024 Basophils/100 WBC (Bld) Automated basophil % 0.2-2.0 [facility] Basophils/100 WBC (Bld) 1.4 % 0.2-2.0 [facility] Eosinophils/100 WBC Auto (Bl d)on 07-30-2024 Eosinophils/100 WBC (Bld) Automated eosinophil % 0.9-7.0 [facility] Eosinophils/100 WBC (Bld) 4.6 % 0.9-7.0 [facility] Erythrocyte distribution wid th Auto (RBC) [Ratio]on 07-30-2024 Erythrocyte distribution width (RBC) [Ratio] Erythrocyte distribution width [Ratio] by Automated count High 11.0-15.0 [facility] Erythrocyte distribution width (RBC) [Ratio] 15.8 % High 11.0-15.0 [facility] Estimated glomerular filtrat ion rate (GFR) non- Americanon 07-30-2024 GFR/1.73 sq M.predicted among non-blacks MDRD (S/P/Bld) [Vol rate/Area] Estimated glomerular filtration rate (GFR) non- Low >=60 mL/min/1.73m 2 [facility] GFR/1.73 sq M.predicted among non-blacks MDRD (S/P/Bld) [Vol rate/Area] 58 mL/min/{1.73_m2} Low >=60 mL/min/1.73m 2 [facility] Hematocrit Auto (Bld) [Volum e fraction]on 07-30-2024 Hematocrit (Bld) [Volume fraction] Hematocrit [Volume Fraction] of Blood by Automated count Low 42.0-54.0 [facility] Hematocrit (Bld) [Volume fraction] 41.5 % Low 42.0-54.0 [facility] Hemoglobin [Mass/volume] in Bloodon 07-30-2024 Hemoglobin (Bld) [Mass/Vol] Hemoglobin [Mass/volume] in Blood Low 14.0-18.0 [facility] Hemoglobin (Bld) [Mass/Vol] 13.5 g/dL Low 14.0-18.0 [facility] Laboratory - Chemistry and C hemistry - challengeon 07-30-2024 Calcium [Mass/Vol] 8.7 mg/dL 8.5-10.1 [facility] Chloride [Moles/Vol] 105 mmol/L 98-107 [facility] CO2 [Moles/Vol] 29.3 mmol/L 21.0-32.0 [facility] Creatinine [Mass/Vol] 1.23 mg/dL 0.70-1.30 [facility] GFR/1.73 sq M.predicted MDRD (S/P/Bld) [Vol rate/Area] mL/min/{1.73_m2} >=60 mL/min/1.73m 2 [facility] Glucose [Mass/Vol] 104 mg/dL 74-106 [facility] Potassium [Moles/Vol] 4.0 mmol/L 3.5-5.1 [facility] Sodium [Moles/Vol] 140 mmol/L 136-145 [facility] TSH Qn 3.311 m[IU]/L 0.358-3.740 [facility] Urea nitrogen [Mass/Vol] 15.0 mg/dL 7.0-18.0 [facility] Urea nitrogen/Creatinine [Mass ratio] 12.2 mg/mg [facility] Laboratory - Hematology and Cell countson 07-30-2024 Immature granulocytes/100 WBC (Bld) 0.3 % 0.0-0.5 [facility] Leukocytes [#/volume] correc destin for nucleated erythrocytes in Blood by Automated counon 07-30-2024 WBC corrected for nucl RBC Auto (Bld) [#/Vol] Leukocytes [#/volume] corrected for nucleated erythrocytes in Blood by Automated coun 4.0-11.0 [facility] WBC corrected for nucl RBC Auto (Bld) [#/Vol] 8.8 10 3/uL 4.0-11.0 [facility] Lymphocytes Auto (Bld) [#/Vo l]on 07-30-2024 Lymphocytes (Bld) [#/Vol] Lymphocytes [#/volume] in Blood by Automated count 1.2-3.8 [facility] Lymphocytes (Bld) [#/Vol] 1.5 10 3/uL 1.2-3.8 [facility] Lymphocytes/100 WBC Auto (Bl d)on 07-30-2024 Lymphocytes/100 WBC (Bld) Lymphocytes/100 leukocytes in Blood by Automated count Low 20.5-60.0 [facility] Lymphocytes/100 WBC (Bld) 17.2 % Low 20.5-60.0 [facility] MCH Auto (RBC) [Entitic mass ]on 07-30-2024 MCH (RBC) [Entitic mass] MCH [Entitic mass] by Automated count 25.9-34.0 [facility] MCH (RBC) [Entitic mass] 30.1 pg 25.9-34.0 [facility] MCHC Auto (RBC) [Mass/Vol]on 07-30-2024 MCHC (RBC) [Mass/Vol] MCHC [Mass/volume] by Automated count 29.9-35.2 [facility] MCHC (RBC) [Mass/Vol] 32.5 g/dL 29.9-35.2 [facility] MCV Auto (RBC) [Entitic vol] on 07-30-2024 MCV (RBC) [Entitic vol] MCV [Entitic volume] by Automated count 80.0-94.0 [facility] MCV (RBC) [Entitic vol] 92.4 fL 80.0-94.0 [facility] Monocytes Auto (Bld) [#/Vol] on 07-30-2024 Monocytes (Bld) [#/Vol] Automated blood monocyte count 0.3-0.8 [facility] Monocytes (Bld) [#/Vol] 0.5 10 3/uL 0.3-0.8 [facility] Monocytes/100 WBC Auto (Bld) on 07-30-2024 Monocytes/100 WBC (Bld) Automated monocyte % 1.7-12.0 [facility] Monocytes/100 WBC (Bld) 5.8 % 1.7-12.0 [facility] Neutrophils Auto (Bld) [#/Vo l]on 07-30-2024 Neutrophils (Bld) [#/Vol] Neutrophils [#/volume] in Blood by Automated count 1.4-6.5 [facility] Neutrophils (Bld) [#/Vol] 6.2 10 3/uL 1.4-6.5 [facility] Neutrophils/100 WBC Auto (Bl d)on 07-30-2024 Neutrophils/100 WBC (Bld) Automated neutrophil % 43.0-75.0 [facility] Neutrophils/100 WBC (Bld) 70.7 % 43.0-75.0 [facility] No Panel Informationon 07-30 Eosinophils # (Auto) 0.4 10 3/uL 0.0-0.7 [facility] Immature Granulocyte # (Auto) 0.03 10 3/uL 0.00-0.03 [facility] Platelet mean volume Auto (B ld) [Entitic vol]on 07-30-2024 Platelet mean volume (Bld) [Entitic vol] Platelet mean volume [Entitic volume] in Blood by Automated count Low 9.5-13.5 [facility] Platelet mean volume (Bld) [Entitic vol] 8.3 fL Low 9.5-13.5 [facility] Platelets Auto (Bld) [#/Vol] on 07-30-2024 Platelets (Bld) [#/Vol] Platelets [#/volume] in Blood by Automated count 150-450 [facility] Platelets (Bld) [#/Vol] 235 10 3/uL 150-450 [facility] RBC Auto (Bld) [#/Vol]on RBC (Bld) [#/Vol] Erythrocytes [#/volume] in Blood by Automated count Low 4.70-6.10 [facility] RBC (Bld) [#/Vol] 4.49 10 6/uL Low 4.70-6.10 [facility] Serum or plasma anion gap de terminationon 07-30-2024 Anion gap [Moles/Vol] Serum or plasma an ion gap determination [facility] Anion gap [Moles/Vol] 9.7 mmol/L [facility] Xeroform x4on 02-05-2024 Applied in clinic MANUALL Y TRANSCRIBED RESULTS [facility] 4x4on 01-22-2024 APPLIED IN CLINIC TODAY. MANUALLY TRANSCRIBED RESULTS [facility] [employer] [facility] Xeroform 4x4on 01-15-2024 Applied in clinic today MANUALLY TRANSCRIBED RESULTS [facility] [employer] [facility] Xeroform 4x4on 01-10-2024 Applied in clinic today. MANUALLY TRANSCRIBED RESULTS [facility] [employer] [facility] [employer]ero[employer] 4x4on 01-03-2024 Applied in clinic today MANUALLY TRANSCRIBED RESULTS [facility] [employer] [facility] No Panel Informationon 12-26 Applied in clinic today MANUALLY TRANSCRIBED RESULTS [facility] No Panel Informationon 12-17 APPLIED IN CLINIC TODAY. MANUALLY TRANSCRIBED RESULTS No Panel InformationOrdered By: Lamar Bee on 12-18-2023 [facility] [employer] [facility] [employer] 12-04-2023 Applied in clinic MANUALL Y TRANSCRIBED RESULTS [facility] [employer] [facility] A1C with Estimated Average G luon 05-31-2022 A1C with Estimated Average Glu [place] [employer] Other Basic Metabolic Panelon 05-10 Calcium [Mass/Vol] 9.7444260 mg/dL 8.5-10 .1 mg/dL [employer] Other CO2 [Moles/Vol] 30.83175875 mmol/L 21.0-3 2.0 mmol/L [employer] Other Creatinine [Mass/Vol] 1.37662556 mg/dL 0. 70-1.30 mg/dL [employer] Other Potassium [Moles/Vol] 4.92586263 mmol/L 3 .5-5.1 mmol/L [employer] Other Urea nitrogen [Mass/Vol] 16.7673297 mg/dL 7.0-18.0 mg/dL [employer] Other Basic Metabolic Panel see note [facility] [employer] Other Basic Metabolic Panel 138 mmol/L 136-14 5 mmol/L [employer] Other Basic Metabolic Panel 119 mg/dL Critically high 74-106 mg /dL [employer] Other Basic Metabolic Panel >60 mL/min/1.73m2 > =60 mL/min/1.73m 2 [place] [employer] Other CBC AUTO DIFFon 05-31-2022 BASO # 0.1 103/ul Normal 0.0-0.1 [facility] Comment on above: Performed By: #### C BC #### [facility] [address] [address] [address] Yamilex Law Basophils/100 WBC (Bld) 1.8 % Normal 0.2-2.0 [facility] Comment on above: Performed By: #### C BC #### [facility] [address] [address] [address] Yamilex Law EO # 0.4 103/ul Normal 0.0-0.7 [facility] Comment on above: Performed By: #### C BC #### [facility] [address] [place] [address] Dr. Yamilex Law Eosinophils/100 WBC (Bld) 5.4 % Normal 0.9-7.0 [facility] Comment on above: Performed By: #### C BC #### [facility] [address] [place] [address] Dr. Yamilex Law Erythrocyte distribution width (RBC) [Ratio] 15.9 % Critically high 11.0-15.0 [facility] Comment on above: Performed By: #### C BC #### [facility] [address] [place] [address] Dr. Yamilex Law Hematocrit (Bld) [Volume fraction] 40.4 % Critically low 42.0-54.0 [facility] Comment on above: Performed By: #### C BC #### [facility] [address] [place] [address] Dr. Yamilex Law Hemoglobin (Bld) [Mass/Vol] 13.0 g/dL Critically low 14.0-18.0 [facility] Comment on above: Performed By: #### C BC #### [facility] [address] [place] [address] Dr. Yamilex Law IG # 0.02 10e3/ul Normal 0.00-0.03 [facility] Comment on above: Performed By: #### C BC #### [facility] [address] [place] [address] Dr. Yamilex Law IG % 0.3 % Normal 0.0-0.[address] [facility] Comment on above: Performed By: #### C BC #### [facility] [address] [place] [address] Dr. Yamilex Law LYMPH # 1.4 103/ul Normal 1.2-3.[address] [facility] Comment on above: Performed By: #### C BC #### [facility] [address] [place] [address] Dr. Yamilex Law Lymphocytes/100 WBC (Bld) 20.6 % Normal 20.5-60.0 [facility] Comment on above: Performed By: #### C BC #### [facility] [address] [place] [address] Dr. Yamilex Law MANUAL DIFF REQ NO Normal [facility] Comment on above: Performed By: #### C BC #### [facility] [address] [place] [address] Dr. Yamilex Law MCH (RBC) [Entitic mass] 28.9 pg Normal 25.9-34.0 [facility] Comment on above: Performed By: #### C BC #### [facility] [address] [place] [address] Dr. Yamilex Law MCHC (RBC) [Mass/Vol] 32.2 g/dL Normal 29.9-35.2 [facility] Comment on above: Performed By: #### C BC #### [facility] [address] [place] [address] Dr. Yamilex Law MCV (RBC) [Entitic vol] 89.8 fL Normal 80.0-94.0 [facility] Comment on above: Performed By: #### C BC #### [facility] [address] [place] [address] Dr. Yamilex Law MONO # 0.6 103/ul Normal 0.3-0.8 [facility] Comment on above: Performed By: #### C BC #### [facility] [address] [place] [address] Dr. Yamilex Law Monocytes/100 WBC (Bld) 8.8 % Normal 1.7-12.0 [facility] Comment on above: Performed By: #### C BC #### [facility] [address] [place] [address] Dr. Yamilex Law NEUT # 4.3 103/ul Normal 1.4-6.[address] [facility] Comment on above: Performed By: #### C BC #### [facility] [address] [place] [address] Dr. Yamilex Law Neutrophils/100 WBC (Bld) 63.1 % Normal 43.0-75.[address] [facility] Comment on above: Performed By: #### C BC #### [facility] [address] [place], [place] [address] Dr. Yamilex Law Platelet mean volume (Bld) [Entitic vol] 8.1 fL Critically low 9.5-13.5 [facility] Comment on above: Performed By: #### C BC #### [facility] [address] [place], [place] [address] Dr. Yamilex Law PLT 246 103/ul Normal 150-[address] [facility] Comment on above: Performed By: #### C BC #### [facility] [id number] Yamilex Law RBC 4.50 106/ul Critically low 4.70-6.10 [facility] Comment on above: Performed By: #### C BC #### [facility] [address] [address] [address] Yamilex Law WBC 6.8 103/ul Normal 4.0-11.0 [facility] Comment on above: Performed By: #### C BC #### [facility] [address] [address] [address] Yamilex Law Complete Blood Count and Dif teri 05-31-2022 Anisocytosis Ql (Bld) [facility] [employer] Other Basophilic stippling LM Ql (Bld) [facility] [employer] Other RBC morphology finding Nom (Bld) [facility] [employer] Other GLYCOHEMOGLOBIN A1Con 2022 ADA RECOMMENDATION SEE BELOW Normal [facility] Comment on above: Result Comment: ADA RECOMMENDED LIMIT 4.0 - 6.0 ADA THERAPEUTIC TARGET < 7.0 ACTION SUGGESTED > 7.0 Performed By: #### A 1C #### [facility] [address] [place] [address] Dr. Yamilex Law Glucose [Mass/Vol] 105 mg/dL Normal [facility] Comment on above: Performed By: #### A 1C #### [facility] [address] [address] [address] Yamilex Law HbA1c (Bld) [Mass fraction] 5.3 % Normal 4.5-6.2 [facility] Comment on above: Performed By: #### A 1C #### [facility] [address] [address] [address] Yamilex Law PROF CHEM 8 (BAS METB)on Anion gap [Moles/Vol] 7.0 mmol/L [facility] Comment on above: Performed By: #### B MP #### [facility] [address] [place] [address] Dr. Yamilex Law Calcium [Mass/Vol] 9.0 mg/dL Normal 8.5-10.1 [facility] Comment on above: Performed By: #### B MP #### [facility] [address] [place] [address] Dr. Yamilex Law Chloride [Moles/Vol] 105 mmol/L 98-107 mmol/L [facility] Comment on above: Performed By: #### B MP #### [facility] [address] [place] [address] Dr. Yamilex Law CO2 [Moles/Vol] 30.1 mmol/L Normal 21.0-32.0 [facility] Comment on above: Performed By: #### B MP #### [facility] [address] [place] [address] Dr. Yamilex Law Creatinine [Mass/Vol] 1.01 mg/dL Normal 0.70-1.30 [facility] Comment on above: Performed By: #### B MP #### [facility] [address] [place] [address] Dr. Yamilex Law EGFR-AF GUAMANIAN >60 Normal >=60 [facility] Comment on above: Performed By: #### B MP #### [facility] [address] [place] [address] Dr. Yamilex Law EGFR-NON AF GUAMANIAN >60 Normal >=60 [facility] Comment on above: Performed By: #### B MP #### [facility] [address] [place] [address] Dr. Yamilex Law Glucose [Mass/Vol] 119 mg/dL Critically high 74-106 [facility] Comment on above: Performed By: #### B MP #### [facility] [address] [address] [address] Yamilex Law Potassium [Moles/Vol] 4.1 mmol/L Normal 3.5-5.1 [facility] Comment on above: Performed By: #### B MP #### [facility] [address] [place] [address] Dr. Yamilex Law Sodium [Moles/Vol] 138 mmol/L Normal 136-145 [facility] Comment on above: Performed By: #### B MP #### [facility] [address] [place] [address] Dr. Yamilex Law Urea nitrogen [Mass/Vol] 16.0 mg/dL Normal 7.0-18.0 [facility] Comment on above: Performed By: #### B MP #### [facility] [address] [place] [address] Dr. Yamilex Law Urea nitrogen/Creatinine [Mass ratio] 15.8 mg/mg [facility] Comment on above: Performed By: #### B MP #### [facility] [address] [place] [address] Dr. Yamilex Law CBC AUTO DIFFon 06-08-2021 BASO # 0.1 103/ul Normal 0.0-0.1 [facility] Comment on above: Performed By: #### C BC #### [facility] [address] [place] [address] Dr. Yamilex Law Basophils/100 WBC (Bld) 1.7 % Normal 0.2-2.0 [facility] Comment on above: Performed By: #### C BC #### [facility] [address] [place] [address] Dr. Yamilex Law EO # 0.3 103/ul Normal 0.0-0.7 [facility] Comment on above: Performed By: #### C BC #### [facility] [address] [place] [address] Dr. Yamilex Law Eosinophils/100 WBC (Bld) 4.7 % Normal 0.9-7.0 [facility] Comment on above: Performed By: #### C BC #### [facility] [address] [place] [address] Dr. Yamilex Law Erythrocyte distribution width (RBC) [Ratio] 15.5 % Critically high 11.0-15.0 [facility] Comment on above: Performed By: #### C BC #### [facility] [address] [place] [address] Dr. Yamilex Law Hematocrit (Bld) [Volume fraction] 41.7 % Critically low 42.0-54.0 [facility] Comment on above: Performed By: #### C BC #### [facility] [address] [place] [address] Dr. Yamilex Law Hemoglobin (Bld) [Mass/Vol] 13.4 g/dL Critically low 14.0-18.0 [facility] Comment on above: Performed By: #### C BC #### [facility] [address] [place] [address] Dr. Yamilex Law IG # 0.03 10e3/ul Normal 0.00-0.03 [facility] Comment on above: Performed By: #### C BC #### [facility] [address] [place] [address] Dr. Yamilex Law IG % 0.5 % Normal 0.0-0.5 [facility] Comment on above: Performed By: #### C BC #### [facility] [address] [place] [address] Dr. Yamilex Law LYMPH # 1.2 103/ul Normal 1.2-3.8 [facility] Comment on above: Performed By: #### C BC #### [facility] [address] [place] [address] Dr. Yamilex Law Lymphocytes/100 WBC (Bld) 18.9 % Critically low 20.5-60.0 [facility] Comment on above: Performed By: #### C BC #### [facility] [address] [place] [address] Dr. Yamilex Law MANUAL DIFF REQ NO Normal [facility] Comment on above: Performed By: #### C BC #### [facility] [address] [place] [address] Dr. Yamilex Law MCH (RBC) [Entitic mass] 29.8 pg Normal 25.9-34.[address] [facility] Comment on above: Performed By: #### C BC #### [facility] [address] [place] [address] Dr. Yamilex Law MCHC (RBC) [Mass/Vol] 32.1 g/dL Normal 29.9-35.[address] [facility] Comment on above: Performed By: #### C BC #### [facility] [address] [place] [address] Dr. Yamilex Law MCV (RBC) [Entitic vol] 92.9 fL Normal 80.0-94.0 [facility] Comment on above: Performed By: #### C BC #### [facility] [address] [place] [address] Dr. Yamilex Law MONO # 0.5 103/ul Normal 0.3-0.8 [facility] Comment on above: Performed By: #### C BC #### [facility] [address] [place] [address] Dr. Yamilex Law Monocytes/100 WBC (Bld) 7.0 % Normal 1.7-12.0 [facility] Comment on above: Performed By: #### C BC #### [facility] [address] [place] [address] Dr. Yamilex Law NEUT # 4.4 103/ul Normal 1.4-6.[address] [facility] Comment on above: Performed By: #### C BC #### [facility] [address] [place] [address] Dr. Yamilex Law Neutrophils/100 WBC (Bld) 67.2 % Normal 43.0-75.[address] [facility] Comment on above: Performed By: #### C BC #### [facility] [address] [place] [address] Dr. Yamilex Law Platelet mean volume (Bld) [Entitic vol] 8.3 fL Critically low 9.5-13.[address] [facility] Comment on above: Performed By: #### C BC #### [facility] [address] [address] [address] Yamilex Law PLT 221 103/ul Normal 150-450 [facility] Comment on above: Performed By: #### C BC #### [facility] [address] [address] [address] Yamilex Law RBC 4.49 106/ul Critically low 4.70-6.10 [facility] Comment on above: Performed By: #### C BC #### [facility] [address] [address] [address] Yamilex Law WBC 6.6 103/ul Normal 4.0-11.0 [facility] Comment on above: Performed By: #### C BC #### [facility] [address] [place] [address] Dr. Yamilex Law PROF CHEM 8 (BAS METB)on Anion gap [Moles/Vol] 11.6 mmol/L Normal [facility] Comment on above: Performed By: #### B MP #### [facility] [address] [place] [address] Dr. Yamilex Law Calcium [Mass/Vol] 8.5 mg/dL Normal 8.4-10.2 [facility] Comment on above: Performed By: #### B MP #### [facility] [address] [place] [address] Dr. Yamilex Law Chloride [Moles/Vol] 103 mmol/L Normal 98-[address] [facility] Comment on above: Performed By: #### B MP #### [facility] [address] [place] [address] Dr. Yamilex Law CO2 [Moles/Vol] 29.4 mmol/L Normal 22.0-30.0 [facility] Comment on above: Performed By: #### B MP #### [facility] [address] [place] [address] Dr. Yamilex Law Creatinine [Mass/Vol] 1.10 mg/dL Normal 0.66-1.25 [facility] Comment on above: Performed By: #### B MP #### [facility] [address] [address] [address] Yamilex Law EGFR-AF GUAMANIAN >60 Normal >=60 [facility] Comment on above: Performed By: #### B MP #### [facility] [address] [place] [address] Dr. Yamilex Law EGFR-NON AF GUAMANIAN >60 Normal >=60 [facility] Comment on above: Performed By: #### B MP #### [facility] [address] [address] [address] Yamilex Law Glucose [Mass/Vol] 114 mg/dL Critically high 74-106 T [facility] Comment on above: Performed By: #### B MP #### [facility] [address] [address] [address] Yamilex Law Potassium [Moles/Vol] 4.0 mmol/L Normal 3.4-5.0 [facility] Comment on above: Performed By: #### B MP #### [facility] [address] [place] [address] Dr. Yamilex Law Sodium [Moles/Vol] 140 mmol/L Normal 137-145 [facility] Comment on above: Performed By: #### B MP #### [facility] [address] [place] [address] Dr. Yamilex Law Urea nitrogen [Mass/Vol] 15.0 mg/dL Normal 9.0-20.0 [facility] Comment on above: Performed By: #### B MP #### [facility] [address] [place] [address] Dr. Yamilex Law Urea nitrogen/Creatinine [Mass ratio] 13.6 mg/mg Normal [facility] Comment on above: Performed By: #### B MP #### [facility] [address] [place] [address] Dr. Yamilex Law COVID-19 [facility] 05-19-2021 SARS-CoV-2 (COVID-19) RNA BRANDO+probe Ql (Unsp spec) Negative Normal Negative [facility] Comment on above: Order Comment: Healt hcare Worker?: N Result Comment: Testing for SARS-CoV-2 by RT-PCR This test was developed and its performance characteristics determined by [employer] and validated at the [facility]. This test has not been FDA [...] is terminated or revoked sooner. PERFORMED BY: [place] [address] PATHOLOGIST INORGANIC CHEMISTRY TEACHER PRINCESS ALVAREZ M.D. Performed By: #### C OVID 19 [facility] #### [address] CNOVjakub 07-01-2018 CNOV Office Visit (DERMMN ) REBECA NICOLE ([id number]) 1950 M Date Time Provider Department 07/01/18 10:30 AM SANDY MULLER (RES)DERMMN During your visit today, we recorded the following information about you: Basil Al MD, 07/02/2018 11:40 AM Signed [facility] July 01, 2018 New Patient CC: Rash HPI: Rebeca Sarmientolulypreeti is a 67 year old male here [...] Date Reviewed: 07/01/2018 Reviewed by: Luz Phoenix LPN - Fully Assessed Reason for Visit: Skin Check [1179] Cmt: wound check and rash Primary Visit Diagnosis:Rash and nonspecific skin eruption [R21] Order(s):SURGICAL PATHOLOGY [[id number]] Order #: [id number]. #:[id number] WOUND CULTURE AND GRAM STAIN [SQWCUL] Order #: [id number]. #:[id number] HSV 1,2/VZV AMP MOLECULAR DETECT [SQHSVVZV] Order #: [id number] FUTURE Problem List As Of Date: 07/01/2018 (None) Disposition: Return in about 2 months (around 08/31/2018) for [facility]. Follow-up and Disposition History Recorded Encounter Status:Closed by BASIL AL MD on 07/02/18 [facility] HSV1,2/VZV Amplifon 07-02-19 19 HSV Type 1, HDA Negative for Herpes Simplex virus Type 1 by Molecular Detection. [facility] Comment on above: Performed By: #### H SVVZV #### [facility] [address] [place] [address] HSV Type 2, HDA Negative for Herpes Simplex virus Type 2 by Molecular Detection. Normal [facility] Comment on above: Performed By: #### H SVVZV #### [facility] [address] [place] [address] Specimen source Nom (Unsp spec) Lesion Normal [facility] Comment on above: Performed By: #### H SVVZV #### [facility] [address] [place] [id number] V Zoster Virus, HDA Negative for Varicel la Zoster virus by Molecular Detection. Normal [facility] Comment on above: Performed By: #### H SVVZV #### [facility] [address] [place], [place] [address] PROGRESSon 07-01-2018 Protein mass conc HNO ID: [id number] Author: Basli Al MD Service: ? Author Type: Physician Type: Progress Notes Filed: 07/02/2018 11:40 AM Note Text: [facility] July 01, 2018 New Patient [...] by the Resident. Basil Al MD Normal [facility] SURGICAL PATHOLOGYon 019 SURGICAL PATHOLOGY Specimen originated from [facility] Specimen #: [id number] Submitting Physician: BASIL AL FINAL DIAGNOSIS A. [...] in-situ hybridization tests have been determined by [facility]'s Demar JRandee [facility] [place] (RT-PLMI) in a manner consistent with CLIA requirements. One or more of these tests have not been cleared or approved by the FDA. [facility] is regulated under CLIA as qualified to [...] in one cassette. Gross examination performed at [facility], [address] [place] [address] 07/01/2018 6:33:05 PM B. Received in [facility] is one piece of tissue measuring 0.4 cm in the greatest dimension. Totally frozen for Direct Immunofluorescence. Gross examination performed at [address] 07/01/2018 7:32:29 PM Date of Report: 07/02/2018 Date of Procedure: 07/01/2018 Date of Receipt: 07/01/2018 Submitted by: BASIL AL Location: A61 Diagnostic interpretation performed at [place] [address]. CLIA Number: [id number] Normal [facility] Wound Culture/Stainon 2018 Wound Culture/Stain Sp. Request/Comment: - Eswab Smear Result - No organisms seen Few Polymorphonuclear leukocytes Culture Result - Rare skin titi Normal [facility] Comment on above: Performed By: #### W CUL #### [place] [address] [place], [place] [address] Vital Signs Date Time Vital Sign Value Performing Clinician Facility 10-06-2024 09:13-0400 Body height 198.12 cm Gutierrez Ball DO Work Phone: [facility] 10-06-2024 09:13-0400 Body mass index (BMI) [Ratio] 36.7 kg/m2 Gutierrez Ball DO Work Phone: [facility] 10-06-2024 09:13-0400 Body weight 144.29 kg Gutierrez Ball DO Work Phone: [facility] 10-06-2024 09:13-0400 Diastolic blood pressure 79 mm[Hg] Gutierrez Ball DO Work Phone: [facility] 10-06-2024 09:13-0400 Heart rate 80 /min Gutierrez Ball DO Work Phone: [facility] 10-06-2024 09:13-0400 Respiratory rate 12 /min Gutierrez Ball DO Work Phone: [facility] 10-06-2024 09:13-0400 Systolic blood pressure 139 mm[Hg] Gutierrez Ball DO Work Phone: [facility] 08-28-2024 09:26-0400 Body height 198.12 cm [facility] 08-28-2024 09:26-0400 Body mass index (BMI) [Ratio] 35.9 kg/m2 [facility] 08-28-2024 09:26-0400 Body weight 140.84 kg [facility] 08-28-2024 09:26-0400 Diastolic blood pressure 77 mm[Hg] [facility] 08-28-2024 09:26-0400 Heart rate 66 /min [facility] 08-28-2024 09:26-0400 Respiratory rate 12 /min [facility] 08-28-2024 09:26-0400 Systolic blood pressure 117 mm[Hg] [facility] 07-28-2024 10:58-0400 Body height 198.12 cm [facility] 07-28-2024 10:58-0400 Body mass index (BMI) [Ratio] 36.2 kg/m2 [facility] 07-28-2024 10:58-0400 Body weight 142.2 kg [facility] 07-28-2024 10:58-0400 Diastolic blood pressure 88 mm[Hg] [facility] 07-28-2024 10:58-0400 Heart rate 65 /min [facility] 07-28-2024 10:58-0400 Respiratory rate 12 /min [facility] 07-28-2024 10:58-0400 Systolic blood pressure 146 mm[Hg] [facility] 2024 08:42-0400 Body height 198.1 cm Morales Rusher DPM Work Phone: [facility] 2024 08:42-0400 Body mass index (BMI) [Ratio] 36.4 kg/m2 Morales Rusher DPM Work Phone: [facility] 2024 08:42-0400 Body weight 142.88 kg Morales Rusher DPM Work Phone: [facility] 06-22-2024 09:02-0400 Diastolic blood pressure 124 mm[Hg] [facility] 06-22-2024 09:02-0400 Heart rate 63 /min [facility] 06-22-2024 09:02-0400 Systolic blood pressure 221 mm[Hg] [facility] 06-22-2024 09:00-0400 Body height 198.12 cm [facility] 06-22-2024 09:00-0400 Body mass index (BMI) [Ratio] 36.1 kg/m2 [facility] 06-22-2024 09:00-0400 Body weight 141.97 kg [facility] 04-28-2024 10:28-0500 Body height 198.1 cm Morales Rusher DPM Work Phone: [facility] 04-28-2024 10:28-0500 Body mass index (BMI) [Ratio] 36.4 kg/m2 Morales Rusher DPM Work Phone: [facility] 04-28-2024 10:28-0500 Body weight 142.88 kg Morales Ramon DPM Work Phone: [facility] 04-10-2024 08:10-0500 Body temperature 97.11 [degF] Catherine Ayoub NUCLEAR PHYSICIAN-CELL TENDER HELPER Work Phone: [facility] 04-10-2024 08:10-0500 Diastolic blood pressure 94 mm[Hg] Catherine Ayoub NUCLEAR PHYSICIAN-CELL TENDER HELPER Work Phone: [facility] 04-10-2024 08:10-0500 Heart rate 75 /min Catherine Ayoub NUCLEAR PHYSICIAN-CELL TENDER HELPER Work Phone: [facility] 04-10-2024 08:10-0500 Systolic blood pressure 166 mm[Hg] Catherine Ayoub NUCLEAR PHYSICIAN-CELL TENDER HELPER Work Phone: [facility] 02-26-2024 08:24-0500 Body temperature 97.11 [degF] Catherine Ayoub NUCLEAR PHYSICIAN-CELL TENDER HELPER Work Phone: [facility] 02-26-2024 08:24-0500 Diastolic blood pressure 98 mm[Hg] Catherine Ayoub NUCLEAR PHYSICIAN-CELL TENDER HELPER Work Phone: [facility] 02-26-2024 08:24-0500 Heart rate 61 /min Catherine Ayoub NUCLEAR PHYSICIAN-CELL TENDER HELPER Work Phone: [facility] 02-26-2024 08:24-0500 Respiratory rate 16 /min Catherine Ayoub NUCLEAR PHYSICIAN-CELL TENDER HELPER Work Phone: [facility] 02-26-2024 08:24-0500 Systolic blood pressure 146 mm[Hg] Catherine Ayoub NUCLEAR PHYSICIAN-CELL TENDER HELPER Work Phone: [facility] 02-19-2024 08:09-0500 Body temperature 97.39 [degF] Catherine Ayoub NUCLEAR PHYSICIAN-CELL TENDER HELPER Work Phone: [facility] 02-19-2024 08:09-0500 Diastolic blood pressure 82 mm[Hg] Catherine Ayoub APRN-CELL TENDER HELPER Work Phone: [facility] 02-19-2024 08:09-0500 Heart rate 75 /min Catherine Ayoub APRN-CELL TENDER HELPER Work Phone: [facility] 02-19-2024 08:09-0500 Respiratory rate 16 /min Catherine Ayoub APRN-CELL TENDER HELPER Work Phone: [facility] 02-19-2024 08:09-0500 Systolic blood pressure 143 mm[Hg] Catherine Ayoub APRN-CELL TENDER HELPER Work Phone: [facility] 02-17-2024 08:23-0500 Body height 198.1 cm Morales Noriega DPM Work Phone: [facility] 02-17-2024 08:23-0500 Body mass index (BMI) [Ratio] 36.4 kg/m2 Morales Ramon DPM Work Phone: [facility] 02-17-2024 08:23-0500 Body weight 142.88 kg Morales Ramon DPM Work Phone: [facility] 02-05-2024 08:08-0400 Body temperature 97.3 [degF] Catherine Ayoub APRN-CELL TENDER HELPER Work Phone: [facility] 02-05-2024 08:08-0400 Diastolic blood pressure 87 mm[Hg] Catherine Ayoub APRN-CELL TENDER HELPER Work Phone: [facility] 02-05-2024 08:08-0400 Heart rate 82 /min Catherine Ayoub APRN-CELL TENDER HELPER Work Phone: [facility] 02-05-2024 08:08-0400 Respiratory rate 16 /min Catherine Ayoub APRN-CELL TENDER HELPER Work Phone: [facility] 02-05-2024 08:08-0400 Systolic blood pressure 150 mm[Hg] Catherine Ayoub APRN-CELL TENDER HELPER Work Phone: [facility] 02-03-2024 10:09-0400 Body mass index (BMI) [Ratio] 37.44 kg/m2 Lan Cho MD Work Phone: [facility] [employer] [facility] 02-03-2024 10:09-0400 Body weight 146.97 kg Lan Cho MD Work Phone: [facility] 02-03-2024 10:09-0400 Diastolic blood pressure 84 mm[Hg] Lan Cho MD Work Phone: [facility] 02-03-2024 10:09-0400 Heart rate 79 /min Lan Cho MD Work Phone: [facility] 02-03-2024 10:09-0400 Systolic blood pressure 126 mm[Hg] Lan Cho MD Work Phone: [facility] 01-22-2024 07:00-0400 Body temperature 97.3 [degF] Catherine Ayoub NUCLEAR PHYSICIAN-CELL TENDER HELPER Work Phone: [facility] 01-22-2024 07:00-0400 Diastolic blood pressure 92 mm[Hg] Catherine Ayoub NUCLEAR PHYSICIAN-CELL TENDER HELPER Work Phone: [facility] 01-22-2024 07:00-0400 Heart rate 74 /min Catherine Ayoub NUCLEAR PHYSICIAN-CELL TENDER HELPER Work Phone: [facility] 01-22-2024 07:00-0400 Systolic blood pressure 157 mm[Hg] Catherine Ayoub NUCLEAR PHYSICIAN-CELL TENDER HELPER Work Phone: [facility] 01-15-2024 08:06-0400 Body temperature 97.7 [degF] Sheyla Way NUCLEAR PHYSICIAN-CELL TENDER HELPER Work Phone: [facility] 01-15-2024 08:06-0400 Diastolic blood pressure 88 mm[Hg] Sheyla Maganaiak NUCLEAR PHYSICIAN-CELL TENDER HELPER Work Phone: [facility] 01-15-2024 08:06-0400 Heart rate 90 /min Sheyla Way NUCLEAR PHYSICIAN-CELL TENDER HELPER Work Phone: [facility] 01-15-2024 08:06-0400 Respiratory rate 16 /min Sheyla Way NUCLEAR PHYSICIAN-CELL TENDER HELPER Work Phone: [facility] 01-15-2024 08:06-0400 Systolic blood pressure 129 mm[Hg] Sheyla Way NUCLEAR PHYSICIAN-CELL TENDER HELPER Work Phone: [facility] 01-10-2024 08:27-0400 Body temperature 97.2 [degF] Catherine Ayoub NUCLEAR PHYSICIAN-CELL TENDER HELPER Work Phone: [facility] 01-10-2024 08:27-0400 Diastolic blood pressure 90 mm[Hg] Catherine Ayoub NUCLEAR PHYSICIAN-CELL TENDER HELPER Work Phone: [facility] 01-10-2024 08:27-0400 Heart rate 86 /min Catherine Ayoub NUCLEAR PHYSICIAN-CELL TENDER HELPER Work Phone: [facility] 01-10-2024 08:27-0400 Systolic blood pressure 141 mm[Hg] Catherine Ayoub NUCLEAR PHYSICIAN-CELL TENDER HELPER Work Phone: [facility] 01-03-2024 09:32-0400 Body temperature 97.11 [degF] Catherine Ayoub NUCLEAR PHYSICIAN-CELL TENDER HELPER Work Phone: [facility] 01-03-2024 09:32-0400 Diastolic blood pressure 108 mm[Hg] Catherine Ayoub NUCLEAR PHYSICIAN-CELL TENDER HELPER Work Phone: [facility] 01-03-2024 09:32-0400 Heart rate 74 /min Catherine Ayoub NUCLEAR PHYSICIAN-CELL TENDER HELPER Work Phone: [facility] 01-03-2024 09:32-0400 Respiratory rate 16 /min Catherine Ayoub NUCLEAR PHYSICIAN-CELL TENDER HELPER Work Phone: [facility] 01-03-2024 09:32-0400 Systolic blood pressure 160 mm[Hg] Catherine Ayoub NUCLEAR PHYSICIAN-CELL TENDER HELPER Work Phone: [facility] 12-27-2023 08:15-0400 Body temperature 97.9 [degF] Catherine Ayoub NUCLEAR PHYSICIAN-CELL TENDER HELPER Work Phone: [facility] 12-27-2023 08:15-0400 Diastolic blood pressure 99 mm[Hg] Catherine Ayoub NUCLEAR PHYSICIAN-CELL TENDER HELPER Work Phone: [facility] 12-27-2023 08:15-0400 Heart rate 82 /min Catherine Ayoub NUCLEAR PHYSICIAN-CELL TENDER HELPER Work Phone: [facility] 12-27-2023 08:15-0400 Respiratory rate 16 /min Catherine Ayoub NUCLEAR PHYSICIAN-CELL TENDER HELPER Work Phone: [facility] 12-27-2023 08:15-0400 Systolic blood pressure 142 mm[Hg] Catherine Ayoub NUCLEAR PHYSICIAN-CELL TENDER HELPER Work Phone: [facility] 12-25-2023 09:02-0400 Body temperature 97.5 [degF] Catherine Ayoub NUCLEAR PHYSICIAN-CELL TENDER HELPER Work Phone: [facility] 12-25-2023 09:02-0400 Diastolic blood pressure 90 mm[Hg] Catherine Ayoub NUCLEAR PHYSICIAN-CELL TENDER HELPER Work Phone: [facility] 12-25-2023 09:02-0400 Heart rate 73 /min Catherine Ayoub NUCLEAR PHYSICIAN-CELL TENDER HELPER Work Phone: [facility] 12-25-2023 09:02-0400 Respiratory rate 16 /min Catherine Ayoub NUCLEAR PHYSICIAN-CELL TENDER HELPER Work Phone: [facility] 12-25-2023 09:02-0400 Systolic blood pressure 133 mm[Hg] Catherine Ayoub NUCLEAR PHYSICIAN-CELL TENDER HELPER Work Phone: [facility] 12-18-2023 09:00-0400 Body temperature 97.3 [degF] Catherine Ayoub NUCLEAR PHYSICIAN-CELL TENDER HELPER Work Phone: [facility] 12-18-2023 09:00-0400 Diastolic blood pressure 91 mm[Hg] Catherine Ayoub NUCLEAR PHYSICIAN-CELL TENDER HELPER Work Phone: [facility] 12-18-2023 09:00-0400 Heart rate 68 /min Catherine Ayoub NUCLEAR PHYSICIAN-CELL TENDER HELPER Work Phone: [facility] 12-18-2023 09:00-0400 Respiratory rate 16 /min Catherine Ayoub APRN-CELL TENDER HELPER Work Phone: [facility] 12-18-2023 09:00-0400 Systolic blood pressure 150 mm[Hg] Catherine Ayoub APRN-CELL TENDER HELPER Work Phone: [facility] 12-04-2023 08:48-0400 Body temperature 98.91 [degF] Catherine Ayoub APRN-CELL TENDER HELPER Work Phone: [facility] 12-04-2023 08:48-0400 Diastolic blood pressure 82 mm[Hg] Catherine Ayoub APRN-CELL TENDER HELPER Work Phone: [facility] 12-04-2023 08:48-0400 Heart rate 79 /min Catherine Ayoub APRN-CELL TENDER HELPER Work Phone: [facility] 12-04-2023 08:48-0400 Respiratory rate 16 /min Catherine Ayoub APRN-CELL TENDER HELPER Work Phone: [facility] 12-04-2023 08:48-0400 Systolic blood pressure 137 mm[Hg] Catherine Ayoub APRN-CELL TENDER HELPER Work Phone: [facility] 09-16-2023 10:14-0400 Body height 200.66 cm [facility] 09-16-2023 10:14-0400 Body mass index (BMI) [Ratio] 36.6 kg/m2 [facility] 09-16-2023 10:14-0400 Body weight 147.41 kg [facility] 09-16-2023 10:14-0400 Diastolic blood pressure 95 mm[Hg] [facility] 09-16-2023 10:14-0400 Heart rate 69 /min [facility] 09-16-2023 10:14-0400 Respiratory rate 12 /min [facility] 09-16-2023 10:14-0400 Systolic blood pressure 152 mm[Hg] [facility] 05-28-2022 09:00-0500 Body height 198.12 cm Gutierrez Laron Other [employer] Other 05-28-2022 09:00-0500 Body mass index (BMI) [Ratio] 38.43 kg/m2 Gutierrez Ball Other [employer] Other 05-28-2022 09:00-0500 Body weight 150.87 kg Gutierrez Ball Other [employer] Other 05-28-2022 09:00-0500 Diastolic blood pressure 70 mm[Hg] Gutierrez Ball Other [employer] Other 05-28-2022 09:00-0500 Respiratory rate 12 /min Gutierrez Ball Other [employer] Other 05-28-2022 09:00-0500 Systolic blood pressure 118 mm[Hg] Gutierrez Ball Other [employer] Other 05-09-2022 11:16-0500 Diastolic blood pressure 79 mm[Hg] DO Gutierrez Ball Work Phone: [facility] 05-09-2022 11:16-0500 Heart rate 77 /min DO Gutierrez Ball Work Phone: [facility] 05-09-2022 11:16-0500 Respiratory rate 16 /min DO Gutierrez Ball Work Phone: [facility] 05-09-2022 11:16-0500 SaO2% (BldA) [Mass fraction] 98 % DO Gutierrez Ball Work Phone: [facility] 05-09-2022 11:16-0500 Systolic blood pressure 143 mm[Hg] DO Gutierrez Ball Work Phone: [facility] 05-09-2022 10:07-0500 Body height 198.12 cm DO Gutierrez Ball Work Phone: [facility] 05-09-2022 10:07-0500 Body temperature 97.6 [degF] DO Gutierrez Larry Work Phone: [facility] 05-09-2022 10:07-0500 Body weight 146.51 kg DO Gutierrez Larry Work Phone: [facility] Encounters Encounter Date Encounter Type Care Provider Facility Start: 10-06-2024 End: 10-06-2024 ambulatory Gutierrez Larry DO Work Phone: [facility] Work Phone: Start: 10-06-2024 End: 10-06-2024 Patient encounter procedure Gutierrez Larry DO -[facility] Work Phone: Start: 08-28-2024 End: 08-28-2024 ambulatory [facility] Work Phone: Start: 08-28-2024 End: 08-28-2024 Patient encounter procedure [facility] Work Phone: Start: 08-28-2024 Non-patient / Non-visit [facility] Work Phone: Start: 08-25-2024 End: 08-25-2024 ambulatory YESSENIA DELCID [facility] Start: 08-22-2024 Evaluation and management of inpatient ALIS MARIA EUGENIA [facility] Start: 08-22-2024 Evaluation and management of inpatient HAIM [facility] Start: 08-21-2024 Evaluation and management of inpatient HAIM [facility] Start: 08-20-2024 Evaluation and management of inpatient MALIKA RAMOS [facility] Start: 08-20-2024 End: 08-22-2024 Evaluation and management of inpatient ANU CINTRON [facility] Start: 08-19-2024 Non-patient / Non-visit [facility] Work Phone: Start: 07-30-2024 Non-patient / Non-visit [facility] Work Phone: Start: 07-28-2024 End: 07-28-2024 ambulatory [facility] Work Phone: Start: 07-28-2024 End: 07-28-2024 Patient encounter procedure [facility] Work Phone: Start: 2024 End: 2024 Bamboo flowsheet Morales Ramon DPM Work Phone: [facility] Start: 2024 End: 2024 Bamboo flowsheet Morales Ramon DPM Work Phone: [facility] Start: 2024 End: 2024 Patient encounter procedure Morales Ramon DPM Work Phone: [facility] Comment on above: Corns and callositie s (Primary Dx); Onychomycosis; Onychodystrophy; Right foot pain; Left foot pain Start: 2024 End: 2024 ambulatory MORALES RAMON Not Available Start: 06-22-2024 End: 06-22-2024 ambulatory [facility] Work Phone: Start: 06-22-2024 End: 06-22-2024 Patient encounter procedure [facility] Work Phone: Start: 04-28-2024 End: 04-28-2024 Bamboo flowsheet Morales Ramon DPM Work Phone: [facility] Start: 04-28-2024 End: 04-28-2024 Bamboo flowsheet Morales Ramon DPM Work Phone: [facility] Start: 04-28-2024 End: 04-28-2024 Office outpatient visit 15 minutes Morales Ramon DPM Work Phone: [facility] Comment on above: Corns and callositie s (Primary Dx); Right foot pain; Onychomycosis Start: 04-28-2024 End: 04-28-2024 ambulatory MORALES RAMON Not Available Start: 04-10-2024 End: 04-10-2024 ambulatory CATHERINE AYOUB [facility] Start: 04-10-2024 End: 04-10-2024 Office outpatient visit 10 minutes Catherine Ayoub NUCLEAR PHYSICIAN-CELL TENDER HELPER Work Phone: [facility] Comment on above: Venous stasis ulcer of left ankle limited to breakdown of skin with varicose veins (CMS-HCC) (Primary Dx) Start: 03-10-2024 End: 03-10-2024 Telephone encounter Lan Cho MD Work Phone: [facility] Comment on above: cancel procedure Start: 02-28-2024 End: 02-28-2024 Refill Lan Cho MD Work Phone: [facility] Comment on above: Pre-operative anxiet y (Primary Dx); Venous stasis ulcer of left ankle limited to breakdown of skin with varicose veins (CMS-HCC) procedure time law e Start: 02-26-2024 End: 02-26-2024 ambulatory CATHERINE AYOUB [facility] Start: 02-26-2024 End: 02-26-2024 Office outpatient visit 10 minutes Catherine Ayoub NUCLEAR PHYSICIAN-CELL TENDER HELPER Work Phone: [facility] Comment on above: Venous stasis ulcer of left ankle limited to breakdown of skin, unspecified whether varicose veins present ([facility]-HCC) (Primary Dx); Edema of left lower leg Start: 02-19-2024 End: 02-19-2024 ambulatory CATHERINE AYOUB [facility] Start: 02-19-2024 End: 02-19-2024 Office outpatient visit 15 minutes Catherine Ayoub NUCLEAR PHYSICIAN-CELL TENDER HELPER Work Phone: [facility] Comment on above: Venous stasis ulcer of left ankle limited to breakdown of skin with varicose veins ([facility]-HCC) (Primary Dx); Rash due to allergy Start: 02-17-2024 End: 02-17-2024 Bamboo flowsheet Morales S Hari DPM Work Phone: [facility] Start: 02-17-2024 End: 02-17-2024 Bamboo flowsheet Morales Ramon DPM Work Phone: [facility] Start: 02-17-2024 End: 02-17-2024 Patient encounter procedure Morales S Yenny DPM Work Phone: [facility] Comment on above: Corns and callositie s (Primary Dx); Onychomycosis; Right foot pain Start: 02-17-2024 End: 02-17-2024 ambulatory MORALES RAMON Not Available Start: 02-14-2024 End: 02-14-2024 Orders Only Catherine Ayoub NUCLEAR PHYSICIAN-CELL TENDER HELPER Work Phone: [facility] Comment on above: Venous stasis ulcer of left ankle limited to breakdown of skin with varicose veins (CMS-HCC) Start: 02-05-2024 End: 02-05-2024 ambulatory CATHERINE Acuna ANITRA [facility] Comment on above: Venous stasis ulcer of left ankle limited to breakdown of skin with varicose veins (CMS-HCC) (Primary Dx); Venous insufficiency of left lower extremity; Varicose veins of left lower extremity with pain; Phlebitis Start: 02-05-2024 End: 02-05-2024 Office outpatient visit 15 minutes Catherine Acuna Anitra NUCLEAR PHYSICIAN-CELL TENDER HELPER Work Phone: [facility] Comment on above: Venous stasis ulcer of left ankle limited to breakdown of skin with varicose veins (CMS-HCC) (Primary Dx); Edema of left lower leg Start: 02-03-2024 End: 02-03-2024 Office outpatient visit 25 minutes Lan Cho MD Work Phone: [facility] Comment on above: Venous insufficiency of left lower extremity (Primary Dx); Venous stasis ulcer of left ankle limited to breakdown of skin with varicose veins (CMS-HCC) Start: 02-03-2024 End: 02-03-2024 ambulatory LAN CHO [facility] Start: 01-22-2024 End: 01-22-2024 Office outpatient visit 15 minutes Catherine Ayoub NUCLEAR PHYSICIAN-CELL TENDER HELPER Work Phone: [facility] Comment on above: Venous stasis ulcer of left ankle limited to breakdown of skin with varicose veins (CMS-HCC) (Primary Dx) Start: 01-22-2024 End: 01-22-2024 ambulatory CATHERINE AYOUB [facility] Start: 01-15-2024 End: 01-15-2024 Office outpatient visit 15 minutes Catherine Ayoub NUCLEAR PHYSICIAN-CELL TENDER HELPER Work Phone: [facility] Comment on above: Venous stasis ulcer of left ankle limited to breakdown of skin with varicose veins ([facility]-HCC) (Primary Dx) Start: 01-15-2024 End: 01-15-[address] [facility] Start: 01-10-2024 End: 01-10-2024 Office outpatient visit 15 minutes Catherine Ayoub NUCLEAR PHYSICIAN-CELL TENDER HELPER Work Phone: [facility] Comment on above: Venous stasis ulcer of left ankle limited to breakdown of skin with varicose veins (CMS-HCC) (Primary Dx) Start: 01-10-2024 End: 01-10-2024 ambulatory CATHERINE AYOUB [facility] Start: 01-03-2024 End: 01-03-2024 Office outpatient visit 10 minutes Catherine Ayoub NUCLEAR PHYSICIAN-CELL TENDER HELPER Work Phone: [facility] Comment on above: Venous stasis ulcer of left ankle limited to breakdown of skin with varicose veins (CMS-HCC) (Primary Dx); Venous stasis ulcer of left ankle limited to breakdown of skin, unspecified whether varicose veins present (CMS-HCC) Start: 01-03-2024 End: 01-03-2024 ambulatory CATHERINE AYOUB [facility] Start: 12-27-2023 End: 12-27-2023 Patient encounter procedure Catherine Ayoub NUCLEAR PHYSICIAN-CELL TENDER HELPER Work Phone: [facility] Comment on above: Venous stasis ulcer of left ankle limited to breakdown of skin without varicose veins (CMS-HCC) (Primary Dx) Start: 12-27-2023 End: 12-27-2023 ambulatory GUTIERREZ LARRY [facility] Start: 12-26-2023 End: 12-26-2023 ambulatory CATHERINE AYOUB [facility] Start: 12-25-2023 End: 12-25-2023 Office outpatient visit 10 minutes Catherine Ayoub NUCLEAR PHYSICIAN-CELL TENDER HELPER Work Phone: [facility] Comment on above: Venous stasis ulcer of left ankle limited to breakdown of skin, unspecified whether varicose veins present (CMS-HCC) (Primary Dx); Venous stasis ulcer of left ankle limited to breakdown of skin without varicose veins (CMS-HCC) Start: 12-25-2023 End: 12-25-2023 ambulatory CATHERINE AYOUB [facility] Start: 12-18-2023 End: 12-18-2023 Office outpatient visit 15 minutes Catherine Ayoub NUCLEAR PHYSICIAN-CELL TENDER HELPER Work Phone: [facility] Comment on above: Venous stasis ulcer of left ankle limited to breakdown of skin without varicose veins (CMS-HCC) (Primary Dx); Edema of left lower leg Start: 12-18-2023 End: 12-18-2023 ambulatory CATHERINE AYOUB [facility] Start: 12-05-2023 End: 12-05-2023 Orders Only Catherine Ayoub NUCLEAR PHYSICIAN-CELL TENDER HELPER Work Phone: [facility] Comment on above: Venous stasis ulcer of left ankle limited to breakdown of skin, unspecified whether varicose veins present (CMS-HCC) (Primary Dx) Start: 12-04-2023 End: 12-04-2023 Office outpatient new 20 minutes Catherine Ayoub NUCLEAR PHYSICIAN-CELL TENDER HELPER Work Phone: [facility] Comment on above: Traumatic open wound of left lower leg with delayed healing (Primary Dx); Edema of left lower leg; Venous stasis ulcer of left ankle limited to breakdown of skin, unspecified whether varicose veins present ([facility]-HCC) Start: 12-04-2023 End: 12-04-2023 ambulatory CATHERINE AYOUB [facility] Start: 11-19-2023 End: 11-19-2023 ambulatory MORALES Hurt RUSHER Not Available Start: 11-12-2023 End: 11-12-2023 ambulatory MORALES S RUSHER Not Available Start: 11-05-2023 End: 11-05-2023 ambulatory MORALES S RUSHER Not Available Start: 09-16-2023 End: 09-16-2023 ambulatory [facility] Work Phone: Start: 09-16-2023 End: 09-16-2023 Patient encounter procedure [facility] Work Phone: Start: 08-13-2023 End: 08-13-2023 ambulatory MORALES S RUSHER Not Available Start: 11-01-2022 End: 11-01-2022 ambulatory Reji Roy Other [employer] Other Start: 11-01-2022 Telephone encounter Reji Gomez [facility] Start: 07-18-2022 End: 07-18-2022 ambulatory Gutierrez Larry Other [employer] Other Start: 07-18-2022 Office outpatient vi sit 15 minutes Gutierrez Larry [facility] Start: 05-31-2022 End: 06-01-[address] GUTIERREZ LARRY Facility:[facility] Start: 05-28-2022 End: 05-28-2022 ambulatory Gutierrez Larry Other [employer] Other Start: 05-28-2022 Patient encounter procedure Gutierrez Larry [facility] Start: 05-09-2022 Telephone encounter Gutierrez Gomez [facility] Start: 05-09-2022 End: 05-09-2022 ambulatory Reji Roy Facility:[facility] Start: 05-09-2022 End: 05-09-2022 Admission to same day surgery center DO Gutierrez Laron Work Phone: [facility] Work Phone: Start: 05-09-2022 End: 05-09-2022 ambulatory DO Gutierrez Laron Work Phone: [facility] Work Phone: Start: 12-26-2021 End: 12-26-2021 ambulatory Reji Roy Other [employer] Other Start: 12-26-2021 Telephone encounter Reji MINA G [facility] Start: 09-21-2021 End: 09-21-2021 ambulatory Reji Roy Other [employer] Other Start: 09-21-2021 Telephone encounter Reji MINA [facility] Start: 06-13-2021 End: 06-14-[address] GUTIERREZ LARRY Facility:[facility] Start: 06-08-2021 End: 06-09-[address] GUTIERREZ LARRY Facility:[facility] Start: 05-23-2021 End: 05-23-2021 ambulatory Reji Roy Facility:[facility] Start: 05-19-2021 End: 05-19-2021 ambulatory Reji Roy Facility:[facility] Start: 12-26-2020 Adult health examination Reji Roy Other [employer] Other Start: 07-01-2018 End: 07-10-2018 Patient encounter procedure SANDY (GLYNN WILLETT [facility] Procedures Date Procedure Procedure Detail Performing Clinician Start: 02-05-2024 NURSING COMMUNICATION Xiomara Ayuob NUCLEAR PHYSICIAN-CELL TENDER HELPER Work Phone: Start: 01-22-2024 NURSING COMMUNICATION Xiomara Ayoub NUCLEAR PHYSICIAN-CELL TENDER HELPER Work Phone: Start: 01-15-2024 NURSING COMMUNICATION Xiomara Ayoub NUCLEAR PHYSICIAN-CELL TENDER HELPER Work Phone: Start: 01-10-2024 NURSING COMMUNICATION Xiomara Ayoub NUCLEAR PHYSICIAN-CELL TENDER HELPER Work Phone: Start: 01-03-2024 NURSING COMMUNICATION Xiomara Ayoub NUCLEAR PHYSICIAN-CELL TENDER HELPER Work Phone: Start: 12-27-2023 NURSING COMMUNICATION Xiomara Ayoub NUCLEAR PHYSICIAN-CELL TENDER HELPER Work Phone: Start: 12-18-2023 NURSING COMMUNICATION Xiomara Ayoub NUCLEAR PHYSICIAN-CELL TENDER HELPER Work Phone: Start: 12-04-2023 NURSING COMMUNICATION Xiomara Ayoub NUCLEAR PHYSICIAN-CELL TENDER HELPER Work Phone: Start: 05-31-[address] ISMAEL LARRY Comment on above: Performed By: #### [facility] #### [facility] [address] [place] [address] Dr. Yamilex Law Start: 05-09-2022 Colonoscopy DO Jackie bonilla Laron Work Phone: Start: 11-27-2018 H/O: artificial joint C ameroirene Roy Other Start: 12-06-2016 Screening for malign ant neoplasm of colon Reji Roy Other Start: 04-12-2016 General examination of patient Reji Roy Other Start: 04-12-2016 Hyperlipidemia screening Reji Vincenty Other Start: 04-12-2016 Screening for malign ant neoplasm of prostate Reji Vincenty Other Depression screening Reji Vincenty Other Screening for malign ant neoplasm of prostate Reji Vincenty Other Plan of Treatment Date Care Activity Detail Author Start: 04-10-2025 Tobacco Screening Tobacco Screening [facility] Start: 02-25-2025 Tobacco Screening Tobacco Screening [facility] Start: 02-18-2025 Tobacco Screening Tobacco Screening [facility] Start: 02-04-2025 Tobacco Screening Tobacco Screening [facility] Start: 02-02-2025 Adult BMI Screening Adult BMI Screen ing [facility] Start: 01-21-2025 Tobacco Screening Tobacco Screening [facility] Start: 01-14-2025 Tobacco Screening Tobacco Screening [facility] Start: 01-09-2025 Tobacco Screening Tobacco Screening [facility] Start: 12-24-2024 Tobacco Screening Tobacco Screening [facility] Start: 12-17-2024 Tobacco Screening Tobacco Screening [facility] Start: 12-03-2024 Tobacco Screening Tobacco Screening [facility] Start: 2024 End: 2024 Patient encounter procedure 2024 8:45 AM EDT Office Visit [facility] [address] [place] [phone] Morales Ramon, DPM [address] [place], [place] [id number] Arrived [facility] Comment on above: Arrived Start: 04-28-2024 End: 04-28-2024 Patient encounter procedure 04/28/2024 10:30 AM EST Office Visit [facility] [address] [place] [address] Morales Ramon, DPM [address] [place] [address] [facility] Comment on above: Arrived Start: 03-25-2024 End: 03-25-2024 Patient encounter procedure 03/25/2024 8:00 AM EST Office Visit [facility] [address] [place] [place] [phone] Catherine Ayoub, NUCLEAR PHYSICIAN-CELL TENDER HELPER [address] [place] [address] [facility] Start: 03-18-2024 End: 03-18-2024 Patient encounter procedure [facility] Start: 03-13-2024 End: 03-13-2024 Patient encounter procedure 03/13/2024 3:30 PM EST Procedure visit [facility] [address] [facility] [place] [address] Lan Cho MD [address] [facility] [address] [place] [address] [facility] Start: 02-26-2024 End: 02-26-2024 Patient encounter procedure 02/26/2024 8:20 AM EST Office Visit [facility] [address] [place] [address] Catherine Ayoub, NUCLEAR PHYSICIAN-CELL TENDER HELPER [address] [place] [address] [facility] Start: 02-19-2024 End: 02-19-2024 Patient encounter procedure 02/19/2024 8:00 AM EST Office Visit [facility] [address] [place] [address] Catherine Ayoub, NUCLEAR PHYSICIAN-CELL TENDER HELPER [address] [place] [address] [facility] Start: 02-17-2024 End: 02-17-2024 Patient encounter procedure 02/17/2024 8:30 AM EST Office Visit [facility] [address] [place] [phone] Morales Ramon, DPM [address] [place] [address] [facility] Comment on above: Arrived Start: 02-05-2024 End: 02-04-2025 US.doppler Lower extremity vein - left Vas venous duplex lwr single left Vascular Ultrasound Routine Venous stasis ulcer of left ankle limited to breakdown of skin with varicose veins (CMS-HCC) Venous insufficiency of left lower extremity Varicose veins of left lower extremity with pain Phlebitis Expected: 02/05/2024, Expires: 02/04/2025 [employer] Work Phone: Comment on above: Expected: 02/05/2024 , Expires: 02/04/2025 Start: 02-05-2024 End: 02-05-2024 Patient encounter procedure 02/05/2024 8:00 AM EDT Office Visit [facility] [address] [place] [phone] Catherine Ayoub, NUCLEAR PHYSICIAN-CELL TENDER HELPER [address] [place], [place] [id number] [facility] Start: 02-03-2024 End: 02-02-2025 Guidance for laser ablation of Extremity vein Vein Treatment Vascular Ultrasound Routine Venous stasis ulcer of left ankle limited to breakdown of skin with varicose veins (CMS-HCC) Venous insufficiency of left lower extremity Expected: 02/03/2024, Expires: 02/02/2025 [employer] Work Phone: Comment on above: Expected: 02/03/2024 , Expires: 02/02/2025 Start: 02-03-2024 End: 02-03-2024 Patient encounter procedure 02/03/2024 10:00 AM EDT Office Visit [facility] [place] [address] [place] [address] [place] [address] [facility] Start: 01-22-2024 End: 01-22-2024 Patient encounter procedure 01/22/2024 8:00 AM EDT Office Visit [facility] [address] [place] [address] Catherine Ayoub, NUCLEAR PHYSICIAN-CELL TENDER HELPER [address] [place] [address] [facility] Start: 01-15-2024 End: 01-15-2024 Patient encounter procedure 01/15/2024 8:00 AM EDT Office Visit [facility] [address] [facility] [phone] Catherine Ayoub, NUCLEAR PHYSICIAN-CELL TENDER HELPER [address] [place] [address], NUCLEAR PHYSICIAN-CELL TENDER HELPER [address] [place] [address] [facility] Start: 01-10-2024 End: 01-10-2024 Patient encounter procedure 01/10/2024 8:20 AM EDT Office Visit [facility] [address] [place] [address] Catherine Ayoub, NUCLEAR PHYSICIAN-CELL TENDER HELPER [address] [place] [address] [facility] Start: 01-03-2024 End: 01-03-2024 Patient encounter procedure 01/03/2024 9:30 AM EDT Office Visit [facility] [address] [place] [phone] Catherine Ayoub, NUCLEAR PHYSICIAN-CELL TENDER HELPER [address] [place] [address] [facility] Start: 01-01-2024 End: 01-01-2024 Patient encounter procedure 01/01/2024 9:00 AM EDT Office Visit [facility] [address] [place] [address] Catherine Ayoub, NUCLEAR PHYSICIAN-CELL TENDER HELPER [address] [place] [address] [facility] Start: 12-27-2023 End: 12-27-2023 Patient encounter procedure 12/27/2023 8:00 AM EDT Office Visit [facility] [address] [place] [address] Catherine Ayoub, NUCLEAR PHYSICIAN-CELL TENDER HELPER [address] [place] [address] [facility] Start: 12-26-2023 End: 12-26-2023 Patient encounter procedure 12/26/2023 1:30 PM EDT Appointment [facility] [address] [place] [address] Catherine Ayoub, NUCLEAR PHYSICIAN-CELL TENDER HELPER [address] [place] [address] [facility] Start: 12-25-2023 End: 12-25-2023 Patient encounter procedure 12/25/2023 9:00 AM EDT Office Visit [facility] [address] [place] [address] Catherine Ayoub, NUCLEAR PHYSICIAN-CELL TENDER HELPER [address] [place] [address] [facility] Start: 12-18-2023 End: 12-17-2024 US.doppler Lower extremity vein - left Vas venous duplex insufficiency lwr lt Vascular Ultrasound Routine Venous stasis ulcer of left ankle limited to breakdown of skin without varicose veins (CMS-HCC) Edema of left lower leg Expected: 12/18/2023, Expires: 12/17/2024 [facility] Work Phone: Comment on above: Expected: 12/18/2023 , Expires: 12/17/2024 Start: 12-18-2023 End: 12-18-2023 Patient encounter procedure 12/18/2023 9:00 AM EDT Office Visit [facility] [address] [place] [address] Catherine Ayoub, NUCLEAR PHYSICIAN-CELL TENDER HELPER [address] [place] [address] [facility] Start: 12-08-2023 Influenza vaccination Influenza Vacc ine [facility] Start: 05-09-2022 [facility] Start: 07-09-2015 Abdominal aortic aneurysm screening Abdominal Aortic Aneurysm (AAA) Screen [facility] Start: 07-09-2015 Fall Risk Screening Fall Risk Screen ing [facility] Start: 02-01-2009 DTaP,Tdap and Td Vaccines (2 - Tdap) DTaP,Tdap and Td Vaccines (2 - Tdap) [facility] Start: 2000 Administration of varicella zoster vaccine Zoster (Shingles) Vaccine (1 of 2) [facility] Start: 1968 Adult BMI Screening Adult BMI Screen ing [facility] Start: 1962 Depression Screening Depression Scre ening [facility] Start: 1950 Medicare Annual Well ness Visit Medicare Annual Wellness Visit [facility] Comprehensive metabo lic 2000 panel - Serum or Plasma [facility] Holter monitor study [facility] Patient Education Hemorrhoids Diverticulosis [facility] Work Phone: [facility] Immunizations Immunization Date Immunization Notes Care Provider Fa malka 05-13-2018 pneumococcal conjuga te vaccine, 13 valent Gutierrez Larry Other [facility] 05-13-2018 pneumococcal Conjuga te, unspecified formulation; Translations: [Need for prophylactic vaccination against Streptococcus pneumoniae (pneumococcus)] Reji Ditty Other [employer] Other 02-01-1999 diphtheria and tetan us toxoids, adsorbed for pediatric use Morales Ramon DPM Work Phone: [facility] Payers Date Payer Category Payer Medicaid AETNA MEDICARE A DVANTAGE [id number] 2021 Self-pay [id number] 2016 Medicare AETNA MEDICARE A ETNA MEDICARE PLAN (PPO) [id number] 2016-Present [phone] [address] [place] [address] [id number] 2016 Medicare HMO AETNA MEDICARE [id number] 1959 Medicare [id number] 2.16.840.1.581721.19 1950 Unknown [id number] 2.16.840.1.665759.3.579.2. 593 1950 Unknown [id number] 2.16.840.1.487153.3.579.2. 593 1950 Unknown [id number] 2.16.840.1.002900.3.579.2. 593 1950 Unknown [id number] 2.16.840.1.237779.3.579.2. 593 1950 Unknown [id number] 2.16.840.1.757662.3.579.2. 1286 1950 Unknown [id number] 2.16.840.1.383224.3.579.2. 128 1950 Unknown [id number] 2.16.840.1.405165.3.579.2. 1286 1950 Unknown [id number] 2.16.840.1.579229.3.579.2. 1286 1950 Unknown [id number] 2.16.840.1.032629.3.579.2. 1286 1950 Unknown [id number] 2.16.840.1.173036.3.579.2. 1285 1950 Unknown [id number] 2.16.840.1.868254.3.579.2. 1286 1950 Unknown [id number] 2.16.840.1.353288.3.579.2. 1285 1950 Unknown [id number] 2.16.840.1.647814.3.579.2. 1285 1950 Unknown [id number] 2.16.840.1.436425.3.579.2. 1285 1950 Unknown [id number] 2.16.840.1.278019.3.579.2. 1285 1950 Unknown [id number] 2.16.840.1.059527.3.579.2. 1285 1950 Unknown [id number] 2.16.840.1.067808.3.579.2. 1285 1950 Unknown [id number] 2.16.840.1.043324.3.579.2. 1285 1950 Unknown [id number] 2.16.840.1.893946.3.579.2. 1258 1950 Unknown [id number] 2.16.840.1.701072.3.579.2. 9 1950 Unknown [id number] 2.16.840.1.019511.3.579.2. 1258 1950 Unknown [id number] 2.16.840.1.804067.3.579.2. 9 1950 Unknown [id number] 2.16.840.1.493079.3.579.2. 1258 1950 Unknown [id number] 2.16.840.1.215749.3.579.2. 9 1950 Unknown [id number] 2.16.840.1.045941.3.579.2. 1259 Medicare Medicare [id number] Private Health Insurance Aetna Mcr PFFS N on Pt [id number] Unknown [facility] [id number] Unknown [id number] 2.16.840.1.077496.3.579.2. 531 Unknown [id number] 2.16.840.1.269348.3.579.2. 531 Unknown [id number] 2.16.840.1.506738.3.579.2. 531 Social History Date Type Detail Facility Start: 11-19-2023 End: 04-28-2024 Sex Assigned At [employer] Other Start: 05-09-2022 End: 10-06-2024 Tobacco smoking status NHIS Ex-smoker (finding) [facility] Start: 1950 Sex Assigned At Male [facility] Start: 04-29-1970 End: 04-08-1984 History of tobacco use Current smoker [facility] Start: 04-29-1970 End: 04-08-1984 History of tobacco use Cigarette Smoker [facility] Start: 11-05-2023 End: 04-28-2024 Cigarettes smoked current (pack per day) - Reported 1.5 [facility] Start: 11-05-2023 End: 01-10-2024 Tobacco use and exposure Smokeless tobacco non-user [facility] Start: 11-19-2023 End: 2024 Alcoholic beverage intake Ex-drinker (finding) [facility] Start: 05-03-2023 Tobacco Comment Last smoked >10 years [facility] Start: 11-05-2023 Alcohol Comment Occasionally [facility] Start: 1950 Sex assigned at Not on file [facility] [employer] Start: 02-26-2024 End: 04-10-2024 Alcoholic beverage intake Lifetime non-drinker (finding) [facility] Childcare Unknown [facility] Start: 11-11-2014 End: 08-28-2024 Sex Male (finding) [facility] [employer] Medical Equipment Procedure Code Equipment Code Equipment Origin al Text Equipment Identifier Dates Fusion, spine, lumbar, XLIF STRATOFUSE DBM 10CC FDA Start: 03-02-2019 Fusion, spine, lumbar, XLIF Bone-screw internal spinal fixation system, non-sterile ()[id number] FDA Start: 03-02-2019 Fusion, spine, lumbar, XLIF Bone-screw internal spinal fixation system, non-sterile ()[id number] FDA Start: 03-02-2019 Fusion, spine, lumbar, XLIF Bone-screw internal spinal fixation system, non-sterile ()[id number] FDA Start: 03-02-2019 Fusion, spine, lumbar, XLIF STRATOFUSE DBM 10CC FDA Start: 03-02-2019 Fusion, spine, lumbar, XLIF Bone-screw internal spinal fixation system, non-sterile ()[id number] FDA Start: 03-02-2019 Fusion, spine, lumbar, XLIF Bone-screw internal spinal fixation system, non-sterile ()[id number] FDA Start: 03-02-2019 Fusion, spine, lumbar, XLIF Bone-screw internal spinal fixation system, non-sterile ()[id number] FDA Start: 03-02-2019 Fusion, spine, lumbar, XLIF STRATOFUSE DBM 5CC FDA Start: 03-02-2019 Fusion, spine, lumbar, XLIF XLIF 3 LEVEL MAS REDUCTION FDA Start: 03-02-2019 Fusion, spine, lumbar, XLIF Spinal fusion graft kit ()[id number] FDA Start: 03-02-2019 Fusion, spine, lumbar, XLIF Spinal fusion graft kit ()[id number] FDA Start: 03-02-2019 Fusion, spine, lumbar, XLIF Metallic spinal fusion cage, non-sterile ()[id number] FDA Start: 03-02-2019 Fusion, spine, lumbar, XLIF Metallic spinal fusion cage, non-sterile ()[id number] FDA Start: 03-02-2019 Fusion, spine, lumbar, XLIF Metallic spinal fusion cage, non-sterile ()[id number] FDA Start: 03-02-2019 Fusion, spine, lumbar, XLIF [...] Desired Activity /State Clinical Notes 12-26-2021 to 09-17-2024 Note Date & Type Note Facility 09-17-2024 Note Please let him know his stress test was normal. Follow up as planned with Dr. Phoenix. Thanks! [facility] 08-25-2024 Note Patient is here toda y in office for a follow S/P ablation an to discuss LAAO. Patient states he is feeling fine, he has had no issues through the all of this. Patient denies cardiac complaints. Review of Systems Constitutional: Negative. [facility] 08-25-2024 Note Cardiovascular Medic ine [facility] SUBJECTIVE Chief Complaint Patient presents with Atrial Flutter Hospital Follow-up Rebeca Nicole is a 74 y.o. male here for hospital follow-up. His Bogdan accompanied him today. 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 PMHx: A.flutter s/p CTI ablation 08/21/24, HTN, HLD, PVCs HPI Patient was recently transferred from [facility] to [facility] due to suspected V-tach vs [...] Neck supple. R (more content not included)... [facility] 08-22-2024 Note Cardiology Inpatient Progress Note [...] is consistent with his baseline. 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 [facility] 08-22-2024 Note Hospital Medicine Discharge Summary [...] function appears normal. Pericardium: No pericardial effusion. Dear DO Larry David is advised to follow up with [...] Medications These medications were sent to [facility] - [place], [place] - [address], [facility] [address] apixaban 5 mg tablet metoprolol succinate XL [...] data, exam, discussion with providers and care-team, [facility] and orders, arranging follow up, counseling of patient and/or family and documentation was 35 minutes. Signed Chevy Lugo MD [facility] 08/22/2024 10:32 AM CC: DO Laron [facility] 08-21-2024 Note Problem: Safety - Ad [...] interpreters to assist at discharge as needed [facility] 08-21-2024 Note - ANRT sv fib/flutte r - Etiology unknown - Getting EP study today [facility] 08-21-2024 Note EP studay today [facility] 08-21-2024 Note Use pantoprazole DVT prophylaxis using VTE protocols per [place] [facility] placed on Protonix Close Monitoring of pt is ordered. N.p.o. after midnight Consult cardiology. I discussed the plan of care with the patient and nursing staff in the room and everyone appears to be in agreement [facility] 08-21-2024 Note -Weight loss is extr verna important for this patient - Diet and exercise modalities to be used [facility] 08-21-2024 Note -Blood pressure stab le - Patient denies having any prior history of high blood pressure - Will monitor very closely and if numbers continue to be high we will treat [facility] 08-21-2024 Note Hospital Medicine Daily Progress Note - 08/21/2024 1:23 PM; Room: [facility]- Admission: 08/20/2024 1:53 AM; Length of stay: 1 days THE HOSPITALIST TEAM PREFERS TO USE TeamSnap FOR NON-URGENT COMMUNICATION 7AM-7PM. IF I DO NOT RESPOND WITHIN 20 MINUTES OR URGENT MATTERS, PLEASE CALL THROUGH THE CONSTRUCTION PLANT OPERATOR. FROM 7PM-7AM, PLEASE PAGE [phone](COVR). Code Status: Full Code Barriers to Discharge: [...] Assessment and Plan Assessment & Plan V-tach ([facility]) - ANRT sv fib/flutter - Etiology unknown [...] pantoprazole DVT prophylaxis using VTE protocols per [place] [facility] placed on Protonix Close Monitoring of pt is ordered. N.p.o. after midnight Consult cardiology. 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 Has difficult walking, is unsteady, very high risk for falls Malnutrition Attestation: I attest to the following: I have personally seen this patient. The patient has been assessed for malnutrition as documentation above, and based on the criteria set by the Academy of Nutrition and Dietetics and the [place] Society of Enteral and Parenteral Nutrition, meets [...] , FREET4 , CORTISOL , FEV1 , JKV7GRY , DLCO , RVSP , HDL , LDL No results found for: EFQMOMFC90 , IRON , TIBC , C3 , C4 , RONI , CANCA , ASO , PSA , CEA , CA125 , CA199 , AFP , CA153 Imaging Complete Echo (TTE) w/wo Imaging Agent, Strain, 3D, Bubble Study 1 1 [facility] Heart Station [address] [place], [place] [phone] (fax) Echocardiogram-[facility] Name: REBECA NICOLE Study Date: 08/20/2024 02:24 PM B/P: 125 mmHg/96 mmHg HR: 57 bpm Date of : 1950 Location: [facility] Height: 78 in. Age: 74 year(s) Patient Room: [facility] Weight: 310 lb. Gender: Male Patient Status: InPt BSA: 2.72 m2 Indication: Paroxysmal atrial tachycardia Examination: Echocardiogram (Complete), Lumason Contrast Image Quality: Fair Patient Consent: Procedure explained to patient Exam Details Contrast: I.V. dose of Lumason Conclusions Left Ventricle: The left ventricle is normal size. Global left ventricular (more content not included)... [facility] 08-21-2024 Note 08/21/24 1159 Admission Assessment Questions Verify insurance with patient [...] Status Interested Does the patient have a case management social worker assigned to them through their insurance? No Living Arrangement (Current/Prior to Hospitalization) Private residence (with ) Does the patient have history of HHC or SNF? Yes (through [employer] insurance gets yearly nurse visit.) Assistive Device [...] to send link and activate MyChart? Yes [facility] 08-21-2024 Note ---- Attestation signed by Giovani Monique MD at 08/21/2024 5:38 PM Mr. Nicole was seen and examined by me this morning. We discussed the plan of care. I then personally spoke with the EP team Drs. Dial and Alban about performing EPS. Subsequent procedure demonstrated atrial flutter which was ablated. Plan is for echo in morning then discharge to home. ---- Cardiology Progress Note Subjective Subjective: Patient was [...] 25 mg, 25 mg, oral, Daily, Dwight Cruz MD, 25 mg at 08/20/241746 sennosides-docusate sodium [...] Value Ventricular Rate 55 Atrial Rate 55 KS Interval 180 QRS DURATION 104 QT Interval 456 QTC CALCULATION(BAZETT) 436 P Kerrick 41 R-Kerrick 1 T Wave Kerrick 34 Impression Sinus bradycardia with occasional Premature ventricular complexes Otherwise normal ECG No previous ECGs available Confirmed by Emerson GROSS, STEPHANIE Rausch ([id number]) on 08/20/2024 9:30:52 AM No results found for: CKTOTAL , CKMB , CKMBINDEX , TROPONINI Complete Echo (TTE) w/wo Imaging Agent, Strain, 3D, Bubble Study Result Date: 08/20/2024 1 1 [facility] Heart Station [address] [place] [address] [phone] (fax) Echocardiogram-[facility] Name: REBECA NICOLE Study Date: 08/20/2024 02:24 PM B/P: 125 mmHg/96 mmHg HR: 57 bpm Date of : 1950 Location: [facility] Height: 78 in. Age: 74 year(s) Patient Room: 316 Weight: 310 lb. Gender: Male Patient Status: [...] RWT, MM 0. (more content not included)... [facility] 08-21-2024 Note Problem: Safety - Ad ult Goal: Free from fall injury Outcome: Progressing Flowsheets (Taken 08/21/2024 0835) Free from fall injury: Assess patient frequently for physical needs Identify cognitive and physical deficits and behaviors that affect risk of falls [place] fall precautions as indicated by assessment Educate [...] not make progress toward the following goals. [facility] 08-20-2024 Note Problem: Safety - Ad ult Goal: Free from fall injury Outcome: Progressing Flowsheets (Taken 08/20/2024 2240) Free from fall injury: Assess patient frequently for physical needs Modify environment to reduce risk of injury Problem: Discharge Planning Goal: Discharge to home or other facility with appropriate resources Outcome: Progressing Flowsheets (Taken 08/20/2024 2240) Discharge to home or other facility with appropriate resources: Identify barriers to discharge with patient and caregiver Identify discharge learning needs (meds, wound care, etc) Problem: Chronic Conditions and Co-morbidities Goal: Patient's chronic conditions and co-morbidity symptoms are monitored and maintained or improved Outcome: Progressing Flowsheets (Taken 08/20/2024 2240) Care Plan - Patient's Chronic Conditions and [...] exacerbated and prevent overall improvement and discharge [facility] 08-20-2024 Note Physical Therapy Physical Therapy [...] findings on his event monitor, transferred to [facility] overnight for further work-up. PT Diagnosis: Impaired activity tolerance/balance Additional time spent at end of evaluation/session educating patient on importance of continued mobility throughout the remainder of his admission. Resources including NA's, Mobility Aides/Techs. Patient Active Problem List Diagnosis V-tach ([facility]) HTN (hypertension) Morbid obesity ([facility]) GERD (gastroesophageal reflux disease) History reviewed. No [...] Level of Function Prior Function Level of [place]: Independent with ADLs and functional transfers, Independent [...] a wheelchair): N (more content not included)... [facility] 08-20-2024 Note Occupational Therapy Occupational Therapy Evaluation Patient Name: Rebeca Nicole : 1950 Today's Date: 08/20/2024 Time In: 847 Time Out: 905 Rebeca Nicole is an 74 y.o. male who came from [facility] with V-tach on his event monitor and he was sent to the ER and then trasferred to [facility]. General Subjective: friendly and cooperative [...] cane (sc, gb, hhs, rts, sock aid, gymnasium teacher) Home Layout: One level Home Access: Level entry Bathroom Shower/Tub: Tub/shower unit Prior Level of Function Prior Function Level of [place]: Independent with ADLs and functional transfers, Independent [...] status, Decreased endurance, Decreased functional mobility OT Assessment/PROOF TESTER Summary: (neeeds skilled OT due to weakness [...] and standing 10 minutes 08/20/24 09/03/24 -- [facility] 08-20-2024 Note -Blood pressure toda y is 157/57. - Patient denies having any prior history of high blood pressure - Will monitor very closely and if numbers continue to be high we will treat [facility] 08-20-2024 Note Use pantoprazole DVT prophylaxis using VTE protocols per [place] [facility] placed on Protonix Close Monitoring of pt is ordered. N.p.o. after midnight Consult cardiology. I discussed the plan of care with the patient and nursing staff in the room and everyone appears to be in agreement [facility] 08-20-2024 Note -Weight loss is extr verna important for this patient - Diet and exercise modalities to be used [facility] 08-20-2024 Note -Etiology unknown - Most excludes ACS as etiology - Will obtain twelve-lead EKG, troponins, and consult cardiology - Patient is currently started on subcu heparin and monitored very closely [facility] 08-20-2024 Note Hospital Medicine History and Physical 08/20/2024 2:26 AM THE HOSPITALIST TEAM PREFERS TO USE TeamSnap FOR NON-URGENT COMMUNICATION 7AM-7PM. IF I DO NOT RESPOND WITHIN 20 MINUTES OR URGENT MATTERS, PLEASE CALL THROUGH THE CONSTRUCTION PLANT OPERATOR. FROM 7PM-7AM, PLEASE PAGE [phone](COVR). Chief Complaint No chief complaint on file. History of Present Illness Rebeca Nicole is an 74 y.o. male who came from [facility] with V-tach on his event monitor and he was sent to the ER and then trasferred to [facility]. 74-year-old gentleman past medical history significant for morbid obesity, hypertension and GERD and of recent feeling extremely weak. He was transferred from [facility] where he was seen to [facility] after the ER physician spoke with a aluminum siding applicator here at [place]. Patient was called by his PCP that [...] ventricular tachycardia he is being transferred to [place] for further investigation and treatment. Monitor the patient, he denied chest pain, denies shortness of breath, denied nausea or vomiting, denied fever or chills. Apart from being morbidly obese the recent physical findings were unremarkable. Patient is being admitted to the hospital for observation and cardiology has been consulted to investigate the causation of the tachyarrhythmia/supraventricular tachycardia. While here [place] patient was sinus rhythm on the monitor [...] investigation of V. tach found on his personnel monitor. Bradycardia, saw the patient here he was [...] be high we will treat Morbid obesity ([facility]) -Weight loss is extremely important for this patient - Diet and exercise modalities to be used GERD (gastroesophageal reflux disease) Use pantoprazole DVT prophylaxis using VTE protocols per [place] [facility] placed on Protonix Close Monitoring of pt is ordered. N.p.o. after midnight Consult cardiology. I discussed the plan of care with the patient and nursing staff in the room and everyone appears to be in agreement VTE Prophylaxis: Heparin subcutaneous ----- Focus of this inpatient stay jay jay (more content not included)... [facility] 07-28-2024 Evaluation note Diagnosis Onset Date Resolution Elevated BP without diagnosis of hypertension acute July 28, 2024 10:32am ALEXANDRA (obstructive sleep apnea) acute July 28, 2024 10:32am Palpitations acute July 28, 2024 10:32am Atrial flutter acute August 28, 2024 9:16am GERD (gastroesophageal reflux disease) acute August 28, 2024 9 :16am Hypertension acute August 28 9:16am NSVT (nonsustained ventricular tachycardia) acute August 28, 2024 9 :16am Obesity acute August 28, 2024 9:16am ALEXANDRA (obstructive sleep apnea) acute August 28, 2024 9 :16am Anemia acute October 06, 2024 9:00am Atrial flutter acute October 06, 2024 9:00am GERD (gastroesophageal reflux disease) acute October 06, 2024 9 :00am Hypertension acute October 06 9:00am Lumbar spondylosis acute October 062024 9:00am NSVT (nonsustained ventricular tachycardia) acute October 06, 2024 9 :00am Obesity acute October 06, 2024 9:00am ALEXANDRA (obstructive sleep apnea) acute October 06, 2024 9 :00am Screening PSA (prostate specific antigen) acute October 06, 2024 9:00am Medicare annual wellness visit, subsequent noneactive October 06, 2024 9 :00am [facility] Work Phone: 1(698) 657-637304-02-2025 History of Present illness Narrative* Morales Ramon, DPM - 2024 8:45 AM EDT Images from the original note [...] Past Surgical History: Procedure Laterality Date COLONOSCOPY 2008 Disease:diverticulosis EGD 2006 EYE SURGERY 2018 HIP [...] pumice stone debridement regularly to reduce hyperkeratoticbuildup. Prescription for ammonium lactate sent to his pharmacy. Eight toenails were debrided in length and thickness today utilizing a nail Nipper and electric level vial inside grinder without incident. Patientwishes to follow up as needed. This note was created with the assistance of a speech recognition program. While intending to generate a timely document that accurately reflects the content of the visit, no guarantee can be provided that every grammatical or spelling mistake has been or will be identified or corrected. Thank you for your understanding. Morales Ramon DPM documented in this [facility]03-17-2025 Evaluation note* Diagnosis Onset Date Resolution Status Admit Date GERD (gastroesophageal reflu x disease) acute June 22, 2024 8:53am ALEXANDRA (obstructive sleep apnea) acute July 28, 2024 10:32am Palpitations acute July 28, 2024 10:32am [facility] Work Phone: 1(646) 662-804103-17-2025 Evaluation note* Diagnosis Onset Date Resolution Status [...] sleep apnea) acute August 28, 2024 9:16am [facility] Work Phone: 1(536) 168-605401-21-2025 History of Present illness Narrative* Morales Ramon [...] , Rfl: cholecalciferol (Vitamin D-3) 50 MCG (1999 [place]) [...] disease Father Raleigh Nicole Hypertension Father Raleigh Vodika Cancer Father Raleigh Nicole Cancer Paternal Grandfather [...] today utilizing a nail Nipper and electric level vial inside grinder without incident. Patient will follow up as [...] understanding. Morales Ramon DPM documented in this encounterSaint Mary's Health [id number] History of Present illness Narrative* Catherine Ayoub, LINDY-CELL TENDER HELPER - 04/10/2024 8:00 AM EST Images from the original note were not included. Wound Care Progress Note Patient: Rebeca Nicole Date of : 1950 Chief Compliant: Left leg ulceration, follow up SUBJECTIVE/HPI: Rebeca is a 73 y.o. male who presents to [facility] for evaluation of 1 [...] ms with multilevel great saphenous vein reflux. Backhoe Operator vein with 4089 ms reflux time and 3.6 mm diameter noted in the proximal medial calf. General: This examination was performed in the upright position. Conclusions: RIGHT: No evidence of right common femoral vein deep vein thrombosis or significant reflux.LEFT: No evidence of deep or superficial vein thrombosis of the lower extremity. Femoropopliteal deep vein reflux. Backhoe Operator vein reflux. Saphenofemoral junction and great saphenous [...] left ankle limited to breakdown of skin ([facility]) Venous insufficiency of left lower extremity Past [...] ankle region. 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 compliance detention goal: wound closure Patient verbalize ability to [...] PROCTOR 04/10/24 9:08 AM Catherine Ayoub APRN, SHARLENE, CWS, LUIS F [facility]: [phone] EMILY Proctor 12/04/23 1106 EMILY Proctor 12/18/23 1020 EMILY Proctor 12/18/23 1158 EMILY Proctor 12/25/23 1016 Catherine Ayoub APRN-SHARLENE 01/03/24 1012 Catherine Ayoub APRN-SHARLENE 01/10/24 0929 Catherine Ayoub APRN-SHARLENE 01/22/24 0927 Catherine Ayoub APRN-SHARLENE 02/05/24 1005 Catherine Ayoub APRN-SHARLENE 02/19/24 0854 EMILY Proctor 02/26/24 0932 Catherine Ayoub APRN-SHARLENE 04/10/24 0913 documented [facility] Instructions* Patient Instructions* Joycelyn Skaggs RN - [...] Type Description documented in this encounterSelect [facility]12-03-2024 Miscellaneous Notes* Telephone Encounter - Karly Canales - 03/10/2024 3:24 PM EST Returned patient VM and LM I will cancel procedure for Saturday along with postop appointments, but Icannot recommend proceeding or not regarding skin changes, but suggest he make a f/u appt with Dr. Cho unless he will see her in wound care soon. documented in this encounterSelect [facility]12-[facility]-2024 Telephone encounter Note* Telephone Encounter - Karly Canales - 03/10/2024 3:24 PM EST Returned patient VM and LM I will cancel procedure for Saturday along with postop appointments, but Icannot recommend proceeding or not regarding skin changes, but suggest he make a f/u appt with Dr. Cho unless he will see her in wound care soon. [facility]-22-2024 Miscellaneous Notes* Telephone Encounter - Karly Canales - 02/28/2024 12:22 PM EST LM for patient I would like to move his procedure time to 9:30 on 03/13/24 arriving at 9:00 and asked him to return my call. documented in this encounterSelect [facility]11-22-2024 Telephone encounter Note* Telephone Encounter - Karly Canales - 02/28/2024 12:22 PM EST LM for patient I would like to move his procedure time to 9:30 on 03/13/24 arriving at 9:00 and asked him to return my call. [facility] History of Present illness Narrative* Catherine Acuna Anitra, NUCLEAR PHYSICIAN-CELL TENDER HELPER - 02/26/2024 8:20 AM EST Images from the original note were not included. Wound Care Progress Note Patient: Rebeca Nicole Date of : 1950 Chief Compliant: Left leg ulceration, follow up SUBJECTIVE/HPI: Rebeca is a 73 y.o. male who presents to [facility] for evaluation of 1 [...] ms with multilevel great saphenous vein reflux. Backhoe Operator vein with 4089 ms reflux time and 3.6 mm diameter noted in the proximal medial calf. General: This examination was performed in the upright position. Conclusions: RIGHT: No evidence of right common femoral vein deep vein thrombosis or significant reflux.LEFT: No evidence of deep or superficial vein thrombosis of the lower extremity. Femoropopliteal deep vein reflux. Backhoe Operator vein reflux. Saphenofemoral junction and great saphenous [...] Negative for numbness and headaches. Objective: Vitals: 02/26/24823 BP: (!) 146/98 Pulse: 61 Resp: 16 [...] Posterior;Left;Lower (Active) Wound Image 02/26/24836 Site Assessment Dry;Fragile;[place] 02/26/24836 Melissa-wound Assessment Dry;Fragile;Intact 02/26/24836 Shape no [...] Other (Comment);Gauze Rolled/Kerlix 02/26/24836 Dressing Changed Changed 02/26/24836 Dressing Status Clean;Dry;Intact 02/26/24836 Assessment/Plan/Education: 1. Venous stasis ulcer of left ankle limited to breakdown of skin, unspecified whether varicose veins present ([facility]) 2. Edema of left lower leg Wash [...] ankle region. 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 compliance detention goal: wound closure Patient verbalize ability to [...] APRN, SHARLENE, CWS, LUIS F [facility]: [phone] EMILY Proctor 12/04/23 1106 EMILY Proctor 12/18/23 1020 EMILY Proctor 12/18/23 1158 EMILY Proctor 12/25/23 1016 EMILY Proctor 01/03/24 1012 EMILY Proctor 01/10/24 0929 Catherine Ayoub APRN-SHARLENE 01/22/24 0927 Catherine Ayoub APRN-SHARLENE 02/05/24 1005 Catherine Ayoub APRN-SHARLENE 02/19/24 0854 Catherine Ayoub APRN-SHARLENE 02/26/24 0932 documented in this encounterSelect [facility]-20-2024 Instructions* Patient Instructions* Bianca Berger RN - [...] Type Description documented in this encounterSelect [facility]11-13-2024 History of Present illness Narrative* Catherine Ayoub, NUCLEAR PHYSICIAN-CELL TENDER HELPER - 02/19/2024 8:00 AM EST Images from the original note were not included. Wound Care Progress Note Patient: Rebeca Nicole Date of : 1950 Chief Compliant: Left leg ulceration, follow up SUBJECTIVE/HPI: Rebeca is a 73 y.o. male who presents to [facility] for evaluation of 1 [...] ms with multilevel great saphenous vein reflux. Backhoe Operator vein with 4089 ms reflux time and 3.6 mm diameter noted in the proximal medial calf. General: This examination was performed in the upright position. Conclusions: RIGHT: No evidence of right common femoral vein deep vein thrombosis or significant reflux.LEFT: No evidence of deep or superficial vein thrombosis of the lower extremity. Femoropopliteal deep vein reflux. Backhoe Operator vein reflux. Saphenofemoral junction and great saphenous [...] left ankle limited to breakdown of skin ([facility]) Venous insufficiency of left lower extremity Past [...] 1 Application 1 Application topical PRN Catherine Ayoub, NUCLEAR PHYSICIAN-CNP1 Application at 02/19/24 0844 Allergies Allergen Reactions [...] Type Abdominal dressing 02/19/24842 Dressing Changed Changed 11/13/24 0843 Dressing Status Clean;Dry;Intact 02/19/24 0843 Assessment/Plan/Education: 1. Venous stasis ulcer of left ankle limited to breakdown of skin with varicose veins ([facility]-HCC) 2. Rash due to allergy Wash mild [...] ankle region. 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 compliance detention goal: wound closure Patient verbalize ability to [...] 02/19/24 8:45 AM Catherine Ayoub APRN, SHARLENE, CWS, LUIS F [facility]: [phone] EMILY Proctor 12/04/23 8822 EMILY Proctor 12/18/23 1020 EMILY Proctor 12/18/23 1158 Catherine Ayoub, NUCLEAR PHYSICIAN-CELL TENDER HELPER 12/25/23 1016 Catherine Acuna [place], NUCLEAR PHYSICIAN-[facility] 01/03/24 1012 Catherine Ayoub, NUCLEAR PHYSICIAN-[facility] 01/10/24 0929 Catherine Ayoub, NUCLEAR PHYSICIAN-[facility] 01/22/24 0927 Catherine Ayoub, NUCLEAR PHYSICIAN-[facility] 02/05/24 1005 Catherine Ayoub, NUCLEAR PHYSICIAN-[facility] 02/19/24 0854 documented in this encounterSelect [facility]11-13-2024 Instructions* Patient Instructions* Clare Mckeon RN - [...] Serosanginous yellow documented in this encounterSelect [facility]11-11-2024 History of Present illness Narrative* Morales Ramon, DPM - 02/17/2024 8:30 AM EST Images [...] Name Age of Onset Heart disease Mother Jaleesa Nicole Hypertension Mother May Enoch Colon cancer Mother May Vogabriel Arthritis Mother May Vogabriel Other (epilepsy) Father Raleigh Nicole Heart disease [...] utilizing a nail nipper and electric bur thread tool grinder set up operator without incident. All hyperkeratotic tissue of the [...] understanding. Morales Ramon DPM documented in this encounterSaint Mary's Health [id number] History of Present illness Narrative* Catherine Ayoub, NUCLEAR PHYSICIAN-CELL TENDER HELPER - 02/05/2024 8:00 AM EDT Images from the original note were not included. Wound Care Progress Note Patient: Rebeca Nicole Date of : 1950 Chief Compliant: Left leg ulceration, follow up SUBJECTIVE/HPI: Rebeca is a 73 y.o. male who presents to [facility] for evaluation of 1 [...] ms with multilevel great saphenous vein reflux. Backhoe Operator vein with 4089 ms reflux time and 3.6 mm diameter noted in the proximal medial calf. General: This examination was performed in the upright position. Conclusions: RIGHT: No evidence of right common femoral vein deep vein thrombosis or significant reflux.LEFT: No evidence of deep or superficial vein thrombosis of the lower extremity. Femoropopliteal deep vein reflux. Backhoe Operator vein reflux. Saphenofemoral junction and great saphenous [...] left ankle limited to breakdown of skin ([facility]) Venous insufficiency of left lower extremity Past [...] for trouble swallowing. Respiratory: Positive for apnea (ALEAXNDRA). Negative for cough, shortness of breath and [...] cm 02/05/24815 Wound Volume (cm^3) 25.5 cm^3 02/05/24815 Change in Wound Size % -3327.42 02/05/24815 Drainage Description Serous 02/05/24815 Drainage Amount Small 02/05/24815 Treatments Cleansed with;Wound cleanser;Soak with;Vashe/Hypochlorous Acid 02/05/24815 Debridement Performed? N 02/05/24815 Dressing Type Abdominal dressing;Gauze Rolled/Kerlix;Xeroform 02/05/24815 Dressing Changed Changed 02/05/24815 Dressing Status Clean;Dry;Intact 02/05/24815 Assessment/Plan/Education: 1. Venous stasis ulcer of left ankle limited to breakdown of skin with varicose veins (CMS-HCC) 2. Edema of left lower leg Wash [...] ankle region. 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: wound closure Patient verbalize ability to [...] or other health record - EMILY PROCTOR 02/05/24 9:58 AM Catherine Ayoub APRN, SHARLENE, RENATO, LUIS F [facility]: [phone] EMILY Proctor 12/04/23 1106 EMILY Proctor 12/18/23 1020 EMILY Proctor 12/18/23 1158 EMILY Proctor 12/25/23 1016 EMILY Proctor 01/03/24 1012 EMILY Proctor 01/10/24 0929 EMILY Proctor 01/22/24 0927 EMILY Proctor 02/05/24 1005 documented in [facility] Instructions* Patient Instructions* Clare Mckeon RN - [...] STEP 6: Secure with double layer tubi manager small business Moisturize all dry and intact skin with [...] Serosanginous yellow documented in this encounterSelect [facility]10-28-2024 History of Present illness Narrative* Lan Cho MD - 02/03/2024 10:00 AM EDT Images from the original note were not included. [facility] [address] [address] Subjective: Patient ID: Rebeca Nicole is a [...] receiving carethrough the wound care clinic in [place]. He tried Unna boots twice with no [...] left ankle limited to breakdown of skin ([facility]) Current Outpatient Medications: gentamicin (GARAMYCIN) 0.1 % [...] to breakdown of skin with varicose veins ([facility]) - [facility] - [place], [place] Plan: Plan The patient presents to the office with chronic, non-healing venous ulcer in the left lower extremity with delayed wound healing despite wound care and use of compression therapy. The patient had a venous insufficiency scan which showed multilevel reflux of the left great saphenous vein, the left popliteal vein, and a rn pool vein in the left calf. I have reviewed testing with the patient and believe he is a good candidate for RFA ablation of theleft great saphenous vein. I explained to the patient that the purpose of the procedure is to help his left leg venous ulcer to heal and to prevent future ulcers from occurring. I explained he does have reflux in a rn pool vein in the left calf which may [...] ablation. [facility] approved by insurance. This [...] Cho MD documented in this encounterSelect [facility]-16-[facility]24 History of Present illness Narrative* Catherine Ayoub, NUCLEAR PHYSICIAN-CELL TENDER HELPER - 01/22/2024 8:00 AM EDT Images from the original note were not included. Wound Care Progress Note Patient: Rebeca Nicole Date of : 1950 Chief Compliant: Left leg ulceration, follow up SUBJECTIVE/HPI: Rebeca is a 73 y.o. male who presents to [facility] for evaluation of 1 [...] ms with multilevel great saphenous vein reflux. Backhoe Operator vein with 4089 ms reflux time and 3.6 mm diameter noted in the proximal medial calf. General: This examination was performed in the upright position. Conclusions: RIGHT: No evidence of right common femoral vein deep vein thrombosis or significant reflux.LEFT: No evidence of deep or superficial vein thrombosis of the lower extremity. Femoropopliteal deep vein reflux. Backhoe Operator vein reflux. Saphenofemoral junction and great saphenous [...] left ankle limited to breakdown of skin ([facility]) Past Medical History: Diagnosis Date Arthritis Falling [...] Application 1 Application topical PRN Catherine Ayoub APRN-SHARLENE Allergies Allergen Reactions Doxycycline Hives Hives Sulfamethoxazole-Trimethoprim [...] ankle region. 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: wound closure Patient verbalize ability to [...] F Hollidayt [facility]: [phone] EMILY Proctor 12/04/23 1106 EMILY Proctor 12/18/23 1020 EMILY Proctor 12/18/23 1158 EMILY Proctor 12/25/23 1016 EMILY Proctor 01/03/24 1012 EMILY Proctor 01/10/24 0929 EMILY Proctor 01/22/24 0927 documented in this encounterKettering Health Greene MemorialBestTravelWebsites [id number] Instructions* Patient Instructions* Lamar Bee RN - [...] STEP 6: Secure with double layer tubi manager small business Moisturize all dry and intact skin with [...] Serosanginous yellow documented in this encounterSelect [facility]10-09-[facility]24 History of Present illness Narrative* EMILY Parham - 01/15/2024 8:00 AM EDT Images from the original note were not included. Wound Care Progress Note Patient: Rebeca Nicole Date of : 1950 Chief Compliant: Left leg ulceration, follow up SUBJECTIVE/HPI: Rebeac is a 73 y.o. male who presents to [facility] for evaluation of 1 [...] ms with multilevel great saphenous vein reflux. Backhoe Operator vein with 4089 ms reflux time and 3.6 mm diameter noted in the proximal medial calf. General: This examination was performed in the upright position. Conclusions: RIGHT: No evidence of right common femoral vein deep vein thrombosis or significant reflux.LEFT: No evidence of deep or superficial vein thrombosis of the lower extremity. Femoropopliteal deep vein reflux. Backhoe Operator vein reflux. Saphenofemoral junction and great saphenous [...] left ankle limited to breakdown of skin ([facility]) Past Medical History: Diagnosis Date Arthritis Falling [...] ankle region. 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: wound closure Patient verbalize ability to [...] EMILY PARHAM 01/15/24 8:30 AM [facility] [place] [facility] [phone] EMILY Parham 01/15/24 0903 documented in this encounterSouthwestern Vermont Medical CenterFolloze10-09-2024 Instructions* Patient Instructions* Bianca Berger RN - [...] STEP 6: Secure with double layer tubi manager small business Moisturize all dry and intact skin with [...] Serosanginous yellow documented in this encounterSelect [facility]10-04-2024 History of Present illness Narrative* Catherine Ayoub, NUCLEAR PHYSICIAN-CELL TENDER HELPER - 01/10/2024 8:20 AM EDT Images from the original note were not included. Wound Care Progress Note Patient: Rebeca Nicole Date of : 1950 Chief Compliant: Left leg ulceration, follow up SUBJECTIVE/HPI: Rebeca is a 73 y.o. male who presents to [facility] for evaluation of 1 [...] ms with multilevel great saphenous vein reflux. Backhoe Operator vein with 4089 ms reflux time and 3.6 mm diameter noted in the proximal medial calf. General: This examination was performed in the upright position. Conclusions: RIGHT: No evidence of right common femoral vein deep vein thrombosis or significant reflux.LEFT: No evidence of deep or superficial vein thrombosis of the lower extremity. Femoropopliteal deep vein reflux. Backhoe Operator vein reflux. Saphenofemoral junction and great saphenous [...] left ankle limited to breakdown of skin ([facility]) Past Medical History: Diagnosis Date Arthritis Falling [...] Negative for numbness and headaches. Objective: Vitals: 01/10/24826 BP: 141/90 Pulse: 86 Temp: 36.2 C [...] ankle region. 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: wound closure Patient verbalize ability to [...] other health record - CATHERINE AYOUB APRN-SHARLENE 01/10/24 9:09 AM Catherine Ayoub APRN, CELL TENDER HELPER, CWS, LUIS F [facility]: [phone] Catherine Acuna LINDY Ayoub-SHARLENE 12/04/23 1106 Catherine Acuna EMILY Ayoub 12/18/23 1020 Catherine Acuna EMILY Ayoub 12/18/23 1158 Catherine Acuna EMILY Ayoub 12/25/23 1016 Catherine Acuna EMILY Ayoub 01/03/24 1012 Catherine Acuna EMILY Ayoub 01/10/24 0929 documented in this encounterSelect [facility]10-04-2024 Instructions* Patient Instructions* Joycelyn Skaggs RN - [...] STEP 6: Secure with double layer tubi manager small business ACTIVITY: Avoid direct pressure to wound(s) at [...] Serosanginous yellow documented in this encounterSelect Medical [facility]09-27-2024 History of Present illness Narrative* EMILY Proctor - 01/03/2024 9:30 AM EDT Images from the original note were not included. Wound Care Progress Note Patient: Rebeca Nicole Date of : 1950 Chief Compliant: Left leg ulceration, follow up SUBJECTIVE/HPI: Rebeca is a 73 y.o. male who presents to [facility] for evaluation of 2 [...] ms with multilevel great saphenous vein reflux. Backhoe Operator vein with 4089 ms reflux time and 3.6 mm diameter noted in the proximal medial calf. General: This examination was performed in the upright position. Conclusions: RIGHT: No evidence of right common femoral vein deep vein thrombosis or significant reflux.LEFT: No evidence of deep or superficial vein thrombosis of the lower extremity. Femoropopliteal deep vein reflux. Backhoe Operator vein reflux. Saphenofemoral junction and great saphenous [...] left ankle limited to breakdown of skin ([facility]) Past Medical History: Diagnosis Date Arthritis Falling [...] ankle region. 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: wound closure Patient verbalize ability to [...] or other health record - CATHERINE AYOUB APRN-CELL TENDER HELPER 01/03/24 9:33 AM Catherine Ayoub APRN, SHARLENE, CWS, LUIS F Holl[facility]: [phone] EMILY Proctor 12/04/23 1106 EMILY Proctor 12/18/23 1020 EMILY Proctor 12/18/23 1158 EMILY Proctor 12/25/23 1016 EMILY Proctor 01/03/24 1012 documented in this encounterSelect [facility]09-27-2024 Instructions* Patient Instructions* Clare Mckeon RN - [...] STEP 6: Secure with double layer tubi manager small business ACTIVITY: Avoid direct pressure to wound(s) at [...] Serosanginous yellow documented in this encounterSelect Medical [facility]09-20-2024 History of Present illness Narrative* EMILY Proctor - 12/27/2023 8:00 AM EDT Patient here for UNNA boot application - EMILY PROCTOR 12/31/23 12:03 PM EMILY Proctor 12/31/23 1204 documented in this encounterSelect Medical [facility]09-20-2024 Instructions* Patient Instructions* Bianca Berger RN - [...] increases the swelling. When you should call [facility]. ([phone] or ) If your wrap(s) slide down [...] Serosanginous yellow documented in this encounterSelect Medical [facility]09-18-2024 History of Present illness Narrative* Catherine Ayoub, NUCLEAR PHYSICIAN-CELL TENDER HELPER - 12/25/2023 9:00 AM EDT Images from the original note were not included. Wound Care Progress Note Patient: Rebeca Nicole Date of : 1950 Chief Compliant:Left leg ulceration, follow up SUBJECTIVE/HPI: Rebeca is a 73 y.o. male who presents to [facility] for evaluation of 2 [...] left ankle limited to breakdown of skin ([facility]) Past Medical History: Diagnosis Date Arthritis Falling [...] ankle region. 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: wound closure Patient verbalize ability to [...] F Morales [facility]: [phone] EMILY Proctor 12/04/23 1106 EMILY Proctor 12/18/23 1020 EMILY Proctor 12/18/23 1158 EMILY Proctor 12/25/23 1016 documented in this encounterSouthwestern Vermont Medical CenterFolloze09-18-2024 Instructions* Patient Instructions* Bianca Berger RN - 12/25/2023 9:00 AM EDT Venous insufficiency testing ordered 12-18-23 Wound Management Treatment Plan Wound Location(s): left proximal posterior calf and left distal posterior calf Applied in clinic today, 12/25/23: Adaptic to cover wound bed Calcium alginate applied to wound bed Secure with roll gauze Tubi manager small business stocking applied Remove dressing for venous testing on 12/26/23. After your testing, apply ABD pad to wound bed and cover with roll gauze and tubi manager small business stocking. Return to clinic on Saturday12/27/23 for [...] increases the swelling. When you should call [facility]. ([phone] or ) If your wrap(s) slide down [...] Serosanginous yellow documented in this encounterSelect Medical [facility]09-11-2024 History of Present illness Narrative* Catherine Ayoub, NUCLEAR PHYSICIAN-CELL TENDER HELPER - 12/18/2023 9:00 AM EDT Images from the original note were not included. Wound Care Progress Note Patient: Rebeca Nicole Date of : 1950 Chief Compliant:Left leg ulceration, follow up SUBJECTIVE/HPI: Rebeca is a 73 y.o. male who presents to [facility] for evaluation of 2 [...] left ankle limited to breakdown of skin ([facility]) Past Medical History: Diagnosis Date Arthritis Falling [...] ankle region. 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 When you should call [facility]. ([phone] or ) If your wrap(s) slide down [...] Serosanginous yellow documented in this encounterSelect Medical [facility]08-28-2024 History of Present illness Narrative* Catherine Acuna [place], NUCLEAR PHYSICIAN-CELL TENDER HELPER - 12/04/2023 9:00 AM EDT Images from the original note were not included. Wound Care Progress Note Patient: Rebeca Nicole Date of : 1950 Chief Compliant:Left leg ulceration SUBJECTIVE/HPI: Rebeca is a 73 y.o. male who presents to [facility] for evaluation of 2 [...] left ankle limited to breakdown of skin ([facility]) Past Medical History: Diagnosis Date Arthritis Falling [...] Distal;Posterior;Left (Active) Wound Image 12/04/23899 Site Assessment [place];Red 12/04/23899 Melissa-wound Assessment Blanchable erythema 12/04/23899 Wound [...] 12/04/23899 Wound Bed Slough (%) < 25% 12/04/23 0900 Assessment/Plan/Education: 1. Traumatic open wound of left [...] ankle region. 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: wound closure Patient verbalize ability to [...] PROCTOR 12/04/23 9:56 AM Catherine Ayoub APRN, SAHRLENE, CWS, LUIS F Holl[facility]t [facility]: [phone] EMILY Proctor 12/04/23 1103 documented in this encounterKettering Health Greene MemorialBestTravelWebsites [id number] Instructions* Patient Instructions* Clare Mckeon RN - [...] 10-15 minutes ITEMS TO FOLLOW UP ON: supervisor body assembly gentamicin ointment at [facility] pharamcy Length Width Depth Wound drainage Type Description small Serosanginous yellow documented in this encounterKettering Health Greene MemorialArt Circle Schoolcraft Memorial [id number] Evaluation note* Encounter Date Diagnosis Assessment Notes Treatment Notes Treatment Clinical Notes Oct, GERD (gastroesophageal reflux disease) (ICD-10 - K21.9) [employer] Other 04-12-2023 Evaluation note* Encounter Date Diagnosis [...] test since he would still be contagious [employer] Other 02-20-2023 Evaluation note* Encounter Date Diagnosis [...] reviewed and amended by provider signed below. [employer] Other 02-01-2023 Procedure noteFirCincinnati [facility]09-20-2022 Evaluation note* Encounter Date Diagnosis Assessment Notes Treatment Notes Treatment Clinical Notes Dec, Family history of colon cancer (ICD-10 - Z80.0) [place] [employer] Other Evvbtfzmrm noteNo InformationNortConemaugh Miners Medical Center [employer] Other Evaluation noteNo assessment information available [facility] Work Phone: Evaluation note* Diagnosis Onset Date Resolution Status Benign prostatic hyperplasia with lower urinary tract symptoms acute GERD (gastroesophageal reflux disease) acute Lumbar spondylosis acute ALEXANDRA (obstructive sleep apnea) acute Screening PSA (prostate specific antigen) acute Medicare annual wellness visit, subsequent noneactive [facility] Work Phone: Evrfgtvnbu note* Diagnosis Corns and callosities- Primary Onychomycosis Dermatophytosis of nail Right foot pain Pain in soft tissues of limb documented in this encounter [facility] HealthcareEvaluation note* Diagnosis Venous stasis ulcer of left ankle limited to breakdown of skin with varicose veins (CMS-HCC)- Primary documented in this encounter [facility]* Diagnosis Corns and callosities- Primary Right foot pain Pain in soft tissues of limb Onychomycosis Dermatophytosis of nail documented in this encounter [facility] HealthcareEvaluation note* Diagnosis Venous stasis ulcer of left ankle limited to breakdown of skin with varicose veins (CMS-HCC)- Primary Venous stasis ulcer of left ankle limited to breakdown of skin, unspecified whether varicose veins present (CMS-HCC) documented in this encounter [facility] SystemEvaluation [facility]* Diagnosis Traumatic open wound of left lower leg with delayed healing- Primary Edema of left lower leg Venous stasis ulcer of left ankle limited to breakdown of skin, unspecified whether varicose veins present (CMS-HCC) documented [facility] this encounter [facility]* Diagnosis Venous stasis ulcer of left ankle limited to breakdown of skin, unspecified whether varicose veins present (CMS-HCC)- Primary documented in this encounter [facility] SystemEvaluation note* Diagnosis Venous stasis ulcer of left ankle limited to breakdown of skin with varicose veins (CMS-HCC)- Primary [facility]* Diagnosis Venous stasis ulcer of left ankle limited to breakdown of skin with varicose veins (CMS-HCC)- Primary [facility]* Diagnosis Venous stasis ulcer of left ankle limited to breakdown of skin without varicose veins (CMS-HCC)- Primary Edema of left lower leg documented in this encounter [facility] SystemEvaluation note* Diagnosis Venous stasis ulcer of left ankle limited to breakdown of skin, unspecified whether varicose veins present (CMS-HCC)- Primary Venous stasis ulcer of left ankle limited to breakdown of skin without varicose veins (CMS-HCC) documented in this encounter [facility] System[facility] note* Diagnosis Venous stasis ulcer of left ankle limited to breakdown of skin without varicose veins (CMS-HCC)- Primary [facility]* Diagnosis Venous insufficiency of left lower extremity- Primary Venous stasis ulcer of left ankle limited to breakdown of skin with varicose veins (CMS-HCC) documented in this encounter [facility]* Diagnosis Venous stasis ulcer of left ankle limited to breakdown of skin with varicose veins (CMS-HCC)- Primary Edema of left lower leg documented in this encounter [facility]* Diagnosis Venous stasis ulcer of left ankle limited to breakdown of skin with varicose veins (CMS-HCC)- Primary Venous insufficiency of left lower extremity Varicose veins of left lower extremity with pain Phlebitis Phlebitis and thrombophlebitis of unspecified site documented in this encounter [facility] SystemEvaluation note* Diagnosis Venous stasis ulcer of left ankle limited to breakdown of skin with varicose veins (CMS-HCC) documented in this encounter [facility] SystemEvaluation note* Diagnosis Venous stasis ulcer of left ankle limited to breakdown of skin with varicose veins (CMS-HCC)- Primary Rash due to allergy documented in this encounter [facility] System[facility] note* Diagnosis Venous stasis ulcer of left ankle limited to breakdown of skin, unspecified whether varicose veins present (CMS-HCC)- Primary Edema of left lower leg documented in this encounter [facility] SystemEvaluation note* Diagnosis Pre-operative anxiety- Primary Venous stasis ulcer of left ankle limited to breakdown of skin with varicose veins (CMS-HCC) documented in this encounter [facility] SystemEvaluation note* Diagnosis Corns and callosities- Primary Onychomycosis Dermatophytosis of nail Onychodystrophy Other specified disease of nail Right foot pain Pain in soft tissues of limb Left foot pain Pain in soft tissues of limb documented in this encounter [facility] HealthcareHistory and physical note Author Reji Roy [facility] May 09, 2022 10:32am Note Date/Time May 09, 2022 1 0:32am [facility] [address] [place] [address] Gastroenterology H&P Signed Patient: Rebeca Nicole MR#: [id number] : 1950 Acct:[id number] Age/Sex: 71 / M Adm Date: 3 Loc: Room: Type: [facility] Attending Dr: Reji Roy MD Copies to: [...] signed by Reji Roy MD> 05/09/22 1032 [facility] Work Phone: History general Narrative - Reported* Type Description [...] Surgical History EGD 2006 Hospitalization History see [id number] Other History general Narrative - Reported* Type [...] Surgical History colonoscopy 05/2022 Hospitalization History see [email or web address] Other Hospital Discharge instructions Additional Instructions DISCHARGE [...] NOT operate machinery such as power tools, lawn mowers, snow blowers, sewing machines, etc. for 24 hours. [...] screening -Follow up with PCP. -Office number [phone].[facility] Work Phone: InstructionsNot on filedocumented in this encounter [facility] SystemInstructionsNot on filedocumented in this encounter [facility] SystemInstructionsNot on filedocumented in this encounter [facility] SystemInstructionsNot on filedocumented in this encounter [facility] SystemInstructionsNot on filedocumented in this encounter [facility] SystemInstructionsNot on filedocumented in this encounter [facility] SystemReason for referral (narrative)No reason for [facility] Phone: Reason for visit Narrative* Consultation (Routine) - Pending Review Specialty Diagnoses / Procedures Referred By Xiomy fong Referred To Contact Wound Care Diagnoses Venous stasis ulcer of left ankle limited to breakdown of skin, unspecified whether varicose veins present ([facility]) Morales Ramon, DPM [address] [place] [address] [facility] Care Op [address] [place] [address] Referral ID Status Reason Start Date Expiration Date Visits Requested Visits Authorized [id number] Pending Review Specialty Services Required 11/27/2023 11/26/2024 1 1 [facility] Summary Purpose Family History Relationship Condition Age [...] Amb Documentation August 28, 2024 8:00a m [facility] f/u August 28, 2024 9:16a [...] (obstructive sleep apnea) August 28, 2024 9:16am Chief Complaint Admit Date heart racing when sleeping on left side July 28, 2024 10:32am Amb Documentation August 28, 2024 8:00a m [facility] f/u August 28, 2024 9:16a m Wellness October 06, 2024 9:00a m Reason for Visit Admit Date Elevated BP without diagnosis of hyperte nsion [...] (obstructive sleep apnea) August 28, 2024 9:16am Anemia October 06, 2024 9:00a m Atrial flutter October 06, 2024 9:00a m GERD (gastroesophageal reflux disease) J thuy 2024 9:00am Hypertension October 06, 2024 9:00a m Lumbar spondylosis October 06, 2024 9:00a m NSVT (nonsustained ventricular tachycard ia) October 06, 2024 9:00am Obesity October 06, 2024 9:00a m ALEXANDRA (obstructive sleep apnea) October 06, 2024 9:00am Screening PSA (prostate specific antigen ) October 06, 2024 9:00am Medicare annual wellness visit, richiee nt October 06, 2024 9:00am Reason for Referral Specialty Diagnoses / Procedures Referred By Contac t Referred To Contact Diagnoses Venous stasis ulcer of left ankle limited to breakdown of skin, unspecified whether varicose veins present ([facility]) Procedures Xeroform 4x4 Catherine Ayoub, NUCLEAR PHYSICIAN-CELL TENDER HELPER [address] [place] [address] Referral ID Status Reason Start Date Expiration Date V isits Requested Visits Authorized [id number] Pending Review 01/03/2024 01/02/2025 1 1 Specialty Diagnoses / Procedures Referred By Xiomy t Referred To Contact Vascular Surgery Diagnoses Venous stasis ulcer of left ankle limited to breakdown of skin with varicose veins ([facility]) Catherine Ayoub, NUCLEAR PHYSICIAN-CELL TENDER HELPER [address] [place] [address] Lan Cho MD [address] [place] [address] [place] [id number] Referral ID Status Reason Start Date Expiration Date Visits Requested Visits Authorized [id number] Pending Review Specialty Services Required 01/03/2024 01/02/2025 1 1 Additional Source Comments (unrecognized sect ion and content) No Status Records FoundNo Status Records FoundNo Status Records FoundNo Status Records FoundNo Status Records FoundNo Status Records FoundNo Status Records Found INFORMATION SOURCE (unrecogn ized section and content) DATE CREATED AUTHOR 07/12/2018 [facility] DATE CREATED AUTHOR AUTHOR'S ORGANIZ ATION 05/16/2022 [facility] DATE CREATED AUTHOR AUTHOR'S ORGANIZ ATION 06/05/2022 [facility] DATE CREATED AUTHOR AUTHOR'S ORGANIZ ATION 02/03/2024 [facility] DATE CREATED AUTHOR AUTHOR'S ORGANIZ ATION 04/17/2024 [facility] DATE CREATED AUTHOR AUTHOR'S ORGANIZ ATION 07/11/2024 [facility] DATE CREATED AUTHOR AUTHOR'S ORGANIZ ATION 09/22/2024 [facility] REASON FOR VISIT (unrecogniz ed section and content) Reason Comments Dressing Change Specialty Diagnoses / Procedures Referred By Xiomy Referred To Contact Wound Care Diagnoses Venous stasis ulcer of left ankle limited to breakdown of skin, unspecified whether varicose veins present ([facility]) Morales Ramon DPM [address] [place] [address] [facility] W[facility] Op [address] [place] [address] Referral ID Status Reason Start Date Expiration Date Visits Requested Visits Authorized [id number] Pending Review Specialty Services Required 11/27/2023 11/26/2024 [...] of skin, unspecified whether varicose veins present ([facility]) Morales Ramon DPM [address] [place] [address] Phone: tel: fax: [facility] [address] [place] [address] Phone: tel: fax: Referral ID Status Reason Start Date Expiration Date Visits Requested Visits Authorized [id number] Pending Review Specialty Services Required 11/27/2023 11/26/2024 1 1 Reason Comments Foot Callouses Established pt prese nts today for callus debridement. SS: 14 Reason Comments Wound Check Reason Comments Wound Check Specialty Diagnoses / Procedures Referred By Contac t Referred To Contact Wound Care Diagnoses Venous stasis ulcer of left ankle limited to breakdown of skin, unspecified whether varicose veins present ([facility]) Morales Ramon, DPM [address] [place] [address] Phone: tel: fax: [facility] [address] [place] [address] Phone: tel: fax: Referral ID Status Reason Start Date Expiration Date Visits Requested Visits Authorized [id number] Pending Review Specialty Services Required 11/27/2023 11/26/2024 1 1 Reason Comments Varicose Veins New patient-testing done- goes to wound care for wound on left ankle Specialty Diagnoses / Procedures Referred By Contac t Referred To Contact Vascular Surgery Diagnoses Venous stasis ulcer of left ankle limited to breakdown of skin with varicose veins ([facility]) Catherine Ayoub, NUCLEAR PHYSICIAN-[facility] [address] [place] [address] Phone: tel: [place]: [place] [address] [place] [address] [place] [address] Phone: tel:[phone] fax: Referral ID Status Reason Start Date Expiration Date Visits Requested Visits Authorized [id number] Pending Review Specialty Services Required 01/03/2024 01/02/2025 [...] Status: Inactive Member Role Status Dates Gutierrez Ball , DO Primary Care Provide r, Attending Provider Active Start: September 16, 2023 End: September 16, 2023 Credit Underwriter Relationship Specialty Start Date End Date Gutierrez Larry MD [address] [facility] [id number] PCP - General Internal Medicine 02/18/23 Credit Underwriter Relationship Specialty Start Date End Date Gutierrez Larry MD [address] [facility] [place] [id number] PCP - General Internal Medicine 02/18/23 Credit Underwriter Relationship Specialty Start Date End Date Gutierrez Larry DO [address] [place] [address] PCP - General Internal Medicine 07/26/20 Credit Underwriter Relationship Specialty Start Date End Date Gutierrez Larry MD [address] [facility] [place] [id number] PCP - General Internal Medicine 02/18/23 Credit Underwriter Relationship Specialty Start Date End Date Gutierrez Larry DO [address] [facility] [place] [address] PCP - General Internal Medicine 07/26/20 Credit Underwriter Relationship Specialty Start Date End Date Gutierrez Larry DO [address] [facility] [place] [address] PCP - General Internal Medicine 07/26/20 Credit Underwriter Relationship Specialty Start Date End Date Gutierrez Larry DO [address] [facility] [place] [address] PCP - General Internal Medicine 07/26/20 Credit Underwriter Relationship Specialty Start Date End Date Gutierrez Larry DO [address] [place] [address] PCP - General Internal Medicine 07/26/20 Credit Underwriter Relationship Specialty Start Date End Date Gutierrez Larry DO [address] [place] [address] PCP - General Internal Medicine 07/26/20 Credit Underwriter Relationship Specialty Start Date End Date Gutierrez Larry DO [address] [place] [address] PCP - General Internal Medicine 07/26/20 Credit Underwriter Relationship Specialty Start Date End Date Gutierrez Larry DO [address] [place] [address] PCP - General Internal Medicine 07/26/20 Credit Underwriter Relationship Specialty Start Date End Date Gutierrez Larry DO [address] [place] [address] PCP - General Internal Medicine 07/26/20 Credit Underwriter Relationship Specialty Start Date End Date Gutierrez Larry DO [address] [place] [address] PCP - General Internal Medicine 07/26/20 Credit Underwriter Relationship Specialty Start Date End Date Gutierrez Larry DO [address] [place] [address] PCP - General Internal Medicine 07/26/20 Credit Underwriter Relationship Specialty Start Date End Date Gutierrez Larry DO [address] [place] [address] PCP - General Internal Medicine 07/26/20 Team Status: Inactive Member Role Status Dates Gutierrez Larry DO Primary Care Provider Active Start: June 22, 2024 End: June 22, 2024 Ottoniel Flores APRN Attending Provider Active Start: June 22, 2024 End: June 22, 2024 Credit Underwriter Relationship Specialty Start Date End Date Gutierrez Larry MD [address] [facility] [place] [address] PCP - General Internal Medicine 02/18/23 Team [...] Larry DO Primary Care Provider Active Start: August 19, 2024 Anu Cintron MD Attending Provider Active St art: August 19, 2024 Team Status: Active Member Role Status Dates Gutierrez Larry DO Primary Care Provider Active Start: August 28, 2024 Roseanne Blanchard CMA Attending Provider Active Start: August 28, 2024 Team Status: Inactive Member Role Status Dates Gutierrez Larry DO Primary Care Provide r, Attending Provider Active Start: August 28, 2024 End: August 28, 2024 Team Status: Inactive Member Role Status Dates Gutierrez Larry DO Primary Care Provider Active Start: July 28, 2024 End: July 28, 2024 Gutierrez Larry , DO Attending Provider Active Sta rt: July 28, 2024 End: July 28, 2024 Team Status: Active Member Role Status Dates Gutierrez Larry DO Primary Care Provider Active Start: July 30, 2024 Gutierrez Larry DO Attending Provider Active Sta rt: July 30, 2024 Team Status: Inactive Member Role Status Dates Gutierrez Larry DO Primary Care Provider Active Start: August 28, 2024 End: August 28, 2024 Gutierrez Larry DO Attending Provider Active Sta rt: August 28, 2024 End: August 28, 2024 Team Status: Inactive Member Role Status Dates Gutierrez Larry DO Primary Care Provider Active Start: October 06, 2024 End: October 06, 2024 Gutierrez Larry DO Attending Provider Active Sta rt: October 06, 2024 End: October 06, 2024 Goals (unrecognized section and content) Goals [...] BE BASED ON THE PRIMARY CLINICAL RECORDS. [facility] [employer] [facility]. provides no warranty or guarantee of the accuracy or completeness of information in this document.
== END 2024-10-07 20:44 | disposition home or self-care (01) ==
LOC: SLEEP 20:43
PROVIDERS: PCP Internal Medicine; Visit Provider Internal Medicine
DX: G47.33 Obstructive sleep apnea (adult) (pediatric) (principal)
CPT/HCPCS: 95811

== ENCOUNTER 2024-10-08 06:36 | Outpatient (OUT) | payer MEDICARE, SELFPAY ==
--- OUTSIDE RECORDS SUMMARY | 2024-10-08 06:41 | XMS_ITS | CCD ---
Author Organization [facility] Care Team Providers Care Professional Wrestler Name Role Phone ADAM ROSSI SANDY (RES) Attending Unavailable Reji Roy Unavailable DO Gutierrez Larry Primary Care Provider [phone] MD Reji Roy Attending Provider [phone] Reji Roy Admitting Unavailable Reji Roy Attending [...] Gutierrez Larry DO Primary Care Provider CATHERINE AYOBU Attending Unavailable GUTIERREZ LARRY Referring Unavailable GUTIERREZ [...] Unavailable Ball Gutierrez CAMERON Primary Care Provider [phone] Gutierrez Larry DO Attending Provider Anu Cintron MD Attending Provider Roseanne Blanchard CMA Attending Provider Unavaila ble Allergies Allergy Classification Reported Allergen(s) Allergy Type Date of Onset Reaction(s) Facility (20 sources) Doxycycline; Translations: [DOXYCYCLINE] Drug Allergy 07-02-19 19 Hives, Rash [facility] (20 sources) predniSONE; Translations: [prednisone] Drug Allergy 05-22-19 [facility] (6 sources) Sulfamethoxazole / Trimethoprim Drug Allergy Unknown [facility] Other (20 sources) Tetracycline Drug Allergy 02-19-20 Unknown [facility] (8 sources) Sulfonamides (Antibiotic); Translations: [Sulfa (Sulfonamide Antibiotics)] Allergy to substance 05-22-19 Rash [facility] (1 source) Doxycycline Drug Allergy 05-22-19 [facility] Repository (1 source) Doxycycline Drug Allergy [facility] Repository (1 source) Sulfamethoxazole / Trimethoprim Drug Allergy [facility] Repository (1 source) Sulfonamides (Antibiotic) Drug allergy (disorder) [facility] Repository (1 source) corticosteroid and/or corticosteroid derivative (FN) Drug allergy Unknown [facility] Other (1 source) patient allergy list reviewed by nurse or physicia Propensity to adverse reactions 05-17-19 15 Comment:Done [facility] Other (5 sources) Corticosteroids Allergy to substance 09-16-19 Unknown Reaction [facility] (5 sources) Sulfamethoxazole Drug Allergy 09-16-19 24 Unknown Reaction [facility] (5 sources) Trimethoprim Drug Allergy 09-16-19 Unknown Reaction [facility] (20 sources) Sulfamethoxazole / Trimethoprim; Translations: [SULFAMETHOXAZOLE-T RIMETHOPRIM] Drug Allergy 07-02-19 19 Rash, Unknown [facility] Repository (14 sources) Latex Propensity to adverse reactions 02-17-20 Rash [facility] (2 sources) natural latex rubber; Translations: [LATEX, [...] to breakdown of skin with varicose veins ([facility]) Apply topically once daily 15 g 02/14/2024 02/26/2024 Discontinued (Therapy completed) 24 hr metoprolol succinate 25 mg extended release oral tablet (2 sources) beta-Adrenergic Jaylin Start: 08-23-2024 take 1 tablet by mouth once daily Metoprolol Succinate 25 mg tablet extended release 24 hr Active 25 MG PO Daily August 23, 2024 12:00am Complies with drug therapy [facility] (PROSTATE SUPPORT PO) (9 sources) [...] to breakdown of skin with varicose veins [facility] Once daily application, apply a thin layer [...] Start: 05-28-2022 take 1 capsule by mo [facility] once daily Minocin 100 MG 1 capsule [...] region] Episodic Other aftercare (2 sources) Other shelter (current) drug therapy; Translations: [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 [facility] Orders Onlyon 09-17-2024 Orders Only [id number] Robert Nicole 1950 M Date Provider Department Center 09/17/2024 [id number], HISTORICAL ALBERTO Vasquez Family History Family Status - Relation Status Age at Mother Father [facility] Office Visiton 08-25-2024 Follow-up visit [id number] Robert Nicole 1950 M Date Provider Department Center 08/25/2024 166-[id number] DELCID ALBERTO Vasquez Family History Family Status - Relation Status Age at Mother Father Level of Service:55361 [place] OFFICE/OUTPATIENT ESTABLISHED HIGH MDM 40 MIN Reason for Visit and Comments: Atrial Flutter [101] Hospital Follow-up [832] [facility] 30on 08-22-2024 30 Daily Case Managemen t Update Multidisciplinary rounds have been completed. Barriers to Discharge: Patient is medically ready for hospital discharge at this time. AVS has been completed, and primary RN has been notified of patients discharge readiness. Cardiology follow up appointment requested via [facility]. Patient will discharge to home and will arrange for own discharge transportation. No further OTM needs identified at this time. [facility] will continue to follow patient and assist with any further discharge related needs. Diet: Dietary Orders (From admission, onward) Start Ordered 08/21/24 161 Regular Diet Diet effective now Question: Room Service? Answer: Yes 08/21/24 1610 08/20/24 1707 Special Kitchen Request Once Comments: Plz send dinner at 1815. Pt would like a turkey burger with lettuce, ketchup, villatoro, mustard. [place], mashed sweet potatoes, bon alexandra 08/20/24 17008/20/24 [...] OT? Answer: eval and treat 08/20/24224 Normal [facility] 30 The patient is Moderately Stable - Low risk of patient condition declining or worsening The patient's goals for the shift include comfort The clinical goals for the shift include vss Over the shift, the patient did not make progress toward the following goals. Barriers to progression include na. Recommendations to address these barriers include na. Normal [facility] CBCon 08-22-2024 Erythrocyte distribution width (RBC) [Ratio] 16.2 % High 11.5-15.0 [facility] Comment on above: Performed By: #### L [id number] ####[facility] (BEAKER)[address] [place] [address] ERYTHROCYTE MEAN CORPUSCULAR HEMOGLOBIN CONCENTRATION (G/DL) BY AUTOMATED 32.3 g/dL Normal 32.0-35.0 [facility] Comment on above: Performed By: #### L [id number] ####[facility] ([facility])[address] [place] [address] Hematocrit (Bld) [Volume fraction] 41.2 % Normal 39.0-50.0 [facility] Comment on above: Performed By: #### L [id number] ####[facility] ([facility])[address] [place] [address] Hemoglobin (Bld) [Mass/Vol] 13.3 g/dL Normal 13.0-17.0 [facility] Comment on above: Performed By: #### L [id number] ####[facility] ([facility])[address] [place], [place] [address] MCH (RBC) [Entitic mass] 29.8 pg Normal 27.0-33.0 [facility] Comment on above: Performed By: #### L [id number] ####[facility] ([facility])[address] [place] [address] MCV (RBC) [Entitic vol] 92.4 fL Normal 82.0-98.0 [facility] Comment on above: Performed By: #### L [id number] ####[facility] ([facility])[address] [place] [address] PLATELETS (10*3/UL) IN BLOOD AUTOMATED COUNT 241 10*3/uL Normal 150-400 [facility] Comment on above: Performed By: #### L [id number] ####[facility] ([facility])[address] [place] [address] RBC (Bld) [#/Vol] 4.46 10*6/uL Normal 4.20-5.70 [facility] Comment on above: Performed By: #### L [id number] ####[facility] ([facility] [place] [address] WBC (Bld) [#/Vol] 9.06 10*3/uL Normal 4.00-10.60 [facility] Comment on above: Performed By: #### L [id number] ####[facility] ([facility])[address] [place] [address] COMPREHENSIVE METABOLIC PANE Karthikeyan 08-22-2024 Albumin [Mass/Vol] 3.6 g/dL Normal 3.5-5.7 [facility] Comment on above: Performed By: #### L [id number] #### [facility] ([facility]) [address] [place] [address] ALP [Catalytic activity/Vol] 57 U/L Normal 34-104 [facility] Comment on above: Performed By: #### L [id number] #### [facility] ([facility]) [address] [place] [address] ALT [Catalytic activity/Vol] 12 U/L Normal 7-52 [facility] Comment on above: Performed By: #### L [id number] #### [facility] ([facility]) [address] [place] [address] Anion gap [Moles/Vol] 8 mmol/L Normal 7-20 [facility] Comment on above: Performed By: #### L [id number] #### [facility] ([facility]) [address] [place] [address] AST [Catalytic activity/Vol] 15 U/L Normal 13-39 [facility] Comment on above: Performed By: #### L [id number] #### [facility] ([facility]) [address] [place] [address] Bilirubin [Mass/Vol] 0.5 mg/dL Normal 0.3-1.0 [facility] Comment on above: Performed By: #### L [id number] #### [facility] ([facility]) [address] [place] [place] [address] Calcium [Mass/Vol] 8.5 mg/dL Low 8.6-10.3 [facility] Comment on above: Performed By: #### L [id number] #### [facility] ([facility]) [address] [place] [address] Chloride [Moles/Vol] 107 mmol/L Normal 98-107 [facility] Comment on above: Performed By: #### L [id number] #### [facility] ([facility]) [address] [place] [address] CO2 [Moles/Vol] 29 mmol/L Normal 21-31 [facility] Comment on above: Performed By: #### L [id number] #### [facility] ([facility]) [address] [place] [address] Creatinine [Mass/Vol] 1.07 mg/dL Normal 0.70-1.30 [facility] Comment on above: Performed By: #### L [id number] #### [facility] ([facility]) [address] [place] [address] GLOMERULAR FILTRATION RATE ML/MIN/1.73 SQ M.PREDICTED 72.8 mL/min/1.73m*2 Normal >60.0 [facility] Comment on above: Result Comment: [facility]???s estimated glomerular filtration rate (eGFR) will [...] individuals. Performed By: #### L [id number] #### [facility] ([facility]) [address] [place] [address] Glucose [Mass/Vol] 97 mg/dL Normal 70-100 [facility] Comment on above: Performed By: #### L [id number] #### [facility] ([facility]) [address] [place] [address] Potassium [Moles/Vol] 4.3 mmol/L Normal 3.5-5.1 [facility] Comment on above: Performed By: #### L [id number] #### [facility] ([facility] [address] [place] [place] [address] Protein [Mass/Vol] 6.7 g/dL Normal 6.0-8.3 [facility] Comment on above: Performed By: #### L [id number] #### [facility] ([facility]) [address] [place] [address] Sodium [Moles/Vol] 140 mmol/L Normal 136-145 [facility] Comment on above: Performed By: #### L [id number] #### [facility] ([facility]) [address] [place] [place] [address] Urea nitrogen [Mass/Vol] 16 mg/dL Normal 7-25 [facility] Comment on above: Performed By: #### L [id number] #### [facility] ([facility]) [address] [place] [address] UREA NITROGEN/CREATININE (MASS RATIO) IN SER/PLAS 15.0 Normal [facility] Comment on above: Performed By: #### L [id number] #### [facility] ([facility]) [address] [place] [place] [address] MAGNESIUMon 08-22-2024 Magnesium [Mass/Vol] 2.2 mg/dL Normal 1.9-2.7 [facility] Comment on above: Performed By: #### L [id number] #### [facility] ([facility]) [address] [place] [address] ANESon 08-21-2024 ANES -- Attestation signed by [...] Ablation Haim Wright MD, ScM, MSc Cardiac Body Design Checker Email: [email or web address] Patient: Rebeca Nicole Procedure Information Date/Time: 08/21/24 1305 Procedure: Ablation atrial flutter 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 Additional Equipment Requests Normal [facility] HPon 08-21-2024 HP H&P reviewed. The patient was examined and there are no changes to the H&P. Normal [facility] OPNOTEon 08-21-2024 OPNOTE Ablation atrial flutter Operative Note Date: 08/21/2024 Location: [facility] (Cath) Name: Rebeca Nicole, : 1950, Diagnosis Pre-op Diagnosis * Atrial flutter, unspecified type (CMS/HCC) [I48.92] Post-op Diagnosis * Atrial flutter, unspecified type (CMS/HCC) [I48.92] Procedures Ablation atrial flutter 57255 - [place] OFFICE/OUTPT VISIT,PROCEDURE ONLY Surgeons Primary: Haim Wright MD Assisting: Magdy Phoenix MD Procedure Summary Anesthesia: Moderate Sedation ASA: ASA status not filed in the log. Estimated Blood Loss: 20 mL Total IV Fluids: 100 ml Drains: * None in log * Staff: Dental Equipment Mechanic: RT Neville Scrub Person: DEV Toribio Documenter: Le Norman RN Invasive Nurse: Catherine Larry RN; Juliane Greenwood RN Indications: Rebeca Nicole is an 74 y.o. male who is having surgery for Atrial flutter, unspecified type ([facility]/HCC) [I48.92]. Procedure Details: The patient was [...] - hemodynamically stable. Condition: stable Haim Wright [facility] 30on 08-20-2024 30 The patient is Moderately Stable - Low risk of patient condition declining or worsening The patient's goals for the shift include comfort The clinical goals for the shift include VSS Over the shift, the patient did not make progress toward the following goals. Barriers to progression include na. Recommendations to address these barriers include na. Normal [facility] 30 Problem: Pain - Adul t Goal: Verbalizes/displays adequate comfort level or baseline comfort level Outcome: Progressing Problem: Safety - Adult Goal: Free from fall injury Outcome: Progressing Flowsheets (Taken 08/20/2024200) Free from fall injury: Assess patient frequently for physical needs Identify cognitive and physical deficits and behaviors that affect risk of falls [place] fall precautions as indicated by assessment Instruct [...] goals for the shift include VSS Normal [facility] 30 The patient is Moderately Stable - Low risk of patient condition declining or worsening The patient's goals for the shift include comfort The clinical goals for the shift include VSS Normal [facility] CBC WITH AUTO DIFFERENTIALon 08-20-2024 Basophils (Bld) [#/Vol] 0.12 10*3/uL Normal 0.00-0.20 [facility] Comment on above: Performed By: #### L [id number] #### [facility] (BEAKER) [address] [place] [address] Basophils/100 WBC (Bld) 1.3 % High 0.0-1.0 [facility] Comment on above: Performed By: #### L [id number] #### [facility] ([facility]AK[facility]) [address] [place] [address] Eosinophils (Bld) [#/Vol] 0.21 10*3/uL Normal 0.00-0.50 [facility] Comment on above: Performed By: #### L [id number] #### [facility] ([facility] [address] [place] [place] [address] Eosinophils/100 WBC (Bld) 2.4 % Normal 0.0-6.0 [facility] Comment on above: Performed By: #### L [id number] #### [facility] ([facility] [address] [place] [place] [address] Erythrocyte distribution width (RBC) [Ratio] 16.2 % High 11.5-15.0 [facility] Comment on above: Performed By: #### L [id number] #### [facility] ([facility]) [address] [place] [place] [address] ERYTHROCYTE MEAN CORPUSCULAR HEMOGLOBIN CONCENTRATION (G/DL) BY AUTOMATED 32.3 g/dL Normal 32.0-35.0 [facility] Comment on above: Performed By: #### L [id number] #### [facility] ([facility]) [address] [place] [address] Hematocrit (Bld) [Volume fraction] 40.3 % Normal 39.0-50.0 [facility] Comment on above: Performed By: #### L [id number] #### [facility] ([facility]) [address] [place] [address] Hemoglobin (Bld) [Mass/Vol] 13.0 g/dL Normal 13.0-17.0 [facility] Comment on above: Performed By: #### L [id number] #### [facility] ([facility] [address] [place] [address] Immature granulocytes (Bld) [#/Vol] 0.04 10*3/uL Normal 0.00-0.20 [facility] Comment on above: Performed By: #### L [id number] #### [facility] (BEAKER) [address] [place] [address] Immature granulocytes/100 WBC (Bld) 0.4 % Normal 0.0-1.0 [facility] Comment on above: Performed By: #### L [id number] #### [facility] ([facility] [address] [place] [address] Lymphocytes (Bld) [#/Vol] 1.88 10*3/uL Normal 1.20-4.00 [facility] Comment on above: Performed By: #### L [id number] #### [facility] ([facility]) [address] [place] [place] [address] Lymphocytes/100 WBC (Bld) 21.1 % Normal 20.0-45.0 [facility] Comment on above: Performed By: #### L [id number] #### [facility] ([facility]) [address] [place] [place] [address] MCH (RBC) [Entitic mass] 29.7 pg Normal 27.0-33.0 [facility] Comment on above: Performed By: #### L [id number] #### [facility] ([facility]) [address] [place] [place] [address] MCV (RBC) [Entitic vol] 92.0 fL Normal 82.0-98.0 [facility] Comment on above: Performed By: #### L [id number] #### [facility] ([facility]) [address] [place] [place] [address] Monocytes (Bld) [#/Vol] 0.60 10*3/uL Normal 0.10-1.00 [facility] Comment on above: Performed By: #### L [id number] #### [facility] ([facility]) [address] [place] [address] Monocytes/100 WBC (Bld) 6.7 % Normal 5.0-12.0 [facility] Comment on above: Performed By: #### L [id number] #### [facility] ([facility]) [address] [place] [address] Neutrophils (Bld) [#/Vol] 6.04 10*3/uL Normal 1.60-7.60 [facility] Comment on above: Performed By: #### L [id number] #### [facility] ([facility]) [address] [place] [address] Neutrophils/100 WBC (Bld) 68.1 % Normal 40.0-72.0 [facility] Comment on above: Performed By: #### L [id number] #### [facility] ([facility]) [address] [place] [address] NRBC (PER 100 WBCS) BY AUTOMATED COUNT 0.0 % Normal 0 [facility] Comment on above: Performed By: #### L [id number] #### [facility] ([facility]) [address] [place] [address] PLATELETS (10*3/UL) IN BLOOD AUTOMATED COUNT 232 10*3/uL Normal 150-400 [facility] Comment on above: Performed By: #### L [id number] #### [facility] ([facility]) [address] [place] [address] RBC (Bld) [#/Vol] 4.38 10*6/uL Normal 4.20-5.70 [facility] Comment on above: Performed By: #### L [id number] #### [facility] ([facility]) [address] [place] [address] WBC (Bld) [#/Vol] 8.89 10*3/uL Normal 4.00-10.60 [facility] Comment on above: Performed By: #### L [id number] #### [facility] ([facility]) [address] [place] [address] COMPREHENSIVE METABOLIC PANE Karthikeyan 08-20-2024 Albumin [Mass/Vol] 3.6 g/dL Normal 3.5-5.7 [facility] Comment on above: Performed By: #### L [id number] ####[facility] ([facility])[address] [place] [address] ALP [Catalytic activity/Vol] 55 U/L Normal 34-104 [facility] Comment on above: Performed By: #### L [id number] ####[facility] ([facility])[address] [place] [address] ALT [Catalytic activity/Vol] 15 U/L Normal 7-52 [facility] Comment on above: Performed By: #### L [id number] ####[facility] ([facility])[address] [place] [address] Anion gap [Moles/Vol] 10 mmol/L Normal 7-20 [facility] Comment on above: Performed By: #### L [id number] ####[facility] ([facility])[address] [place] [address] AST [Catalytic activity/Vol] 15 U/L Normal 13-39 [facility] Comment on above: Performed By: #### L [id number] ####[facility] ([facility])[address] [place] [address] Bilirubin [Mass/Vol] 0.8 mg/dL Normal 0.3-1.0 [facility] Comment on above: Performed By: #### L [id number] ####[facility] ([facility])[address] [place] [address] Calcium [Mass/Vol] 8.6 mg/dL Normal 8.6-10.3 [facility] Comment on above: Performed By: #### L [id number] ####[facility] ([facility])[address] [place] [address] Chloride [Moles/Vol] 105 mmol/L Normal 98-107 [facility] Comment on above: Performed By: #### L [id number] ####[facility] ([facility] [place] [address] CO2 [Moles/Vol] 28 mmol/L Normal 21-31 [facility] Comment on above: Performed By: #### L [id number] ####[facility] (BEAKER)[address] [place] [address] Creatinine [Mass/Vol] 0.90 mg/dL Normal 0.70-1.30 [facility] Comment on above: Performed By: #### L [id number] ####[facility] ([facility] [place] [address] GLOMERULAR FILTRATION RATE ML/MIN/1.73 SQ M.PREDICTED 89.6 mL/min/1.73m*2 Normal >60.0 [facility] Comment on above: Result Comment: [facility]???s estimated glomerular filtration rate (eGFR) will [...] of individuals. Performed By: #### L [id number] ####[facility] ([facility])[address] [place] [address] Glucose [Mass/Vol] 88 mg/dL Normal 70-100 [facility] Comment on above: Performed By: #### L [id number] ####[facility] ([facility])[address] [place] [address] Potassium [Moles/Vol] 3.7 mmol/L Normal 3.5-5.1 [facility] Comment on above: Performed By: #### L [id number] ####[facility] ([facility])[address] [place] [address] Protein [Mass/Vol] 6.5 g/dL Normal 6.0-8.3 [facility] Comment on above: Performed By: #### L [id number] ####[facility] (BEAKER)[address] [place] [address] Sodium [Moles/Vol] 139 mmol/L Normal 136-145 [facility] Comment on above: Performed By: #### L [id number] ####[facility] (BEAKER)[address] [place] [address] Urea nitrogen [Mass/Vol] 15 mg/dL Normal 7-25 [facility] Comment on above: Performed By: #### L [id number] ####[facility] ([facility]AKER)[address] [place] [address] UREA NITROGEN/CREATININE (MASS RATIO) IN SER/PLAS 16.7 Normal [facility] Comment on above: Performed By: #### L [id number] ####[facility] (BEOLU)[address] [place] [address] CONSULTon 08-20-2024 CONSULT -- Attestation signed by [...] EPS and see what can be induced. [facility] Note Reason for consultation: Ventricular [...] Year: No Utilities: Not At Risk (08/20/2024) [facility] Utilities Threatened with loss of utilities: No [...] depression, feeling (more content not included)... Normal [facility] CONSULT -- Attestation signed by Giovani [...] HTN and obesity who was transferred from [place] to [facility] for SVT and PVCs on event monitor. [...] vomiting, fever. He had an echo at [facility] which was unremarkable per the patient. [...] Value Ventricular Rate 55 Atrial Rate 55 AR Interval 180 QRS DURATION 104 QT Interval 456 QTC CALCULATION(BAZETT) 436 P Fowler 41 R-Fowler 1 T Wave Fowler 34 Impression Sinus bradycardia with occasional Premature [...] least in part, completed using a voice adult services librarian system. Every effort was made to ensure accuracy. However, inadvertent computerized adult services librarian errors may be present. Dileep Alvarenga (more content not included)... Normal [facility] HIGH SENSITIVITY TROPONIN Io n 08-20-2024 HS TROPONIN I (NG/L) 5 ng/L Normal <20 [facility] Comment on above: Performed By: #### L [id number] ####[facility] (DENA)[address] [place] [address] HPon 08-20-2024 HP -- Attestation signed by [...] EPS and see what can be induced. [facility] Reason for consultation: Ventricular [...] Year: No Utilities: Not At Risk (08/20/2024) [facility] Utilities Threatened with loss of utilities: No [...] depression, feeling (more content not included)... Normal [facility] Basophils Auto (Bld) [#/Vol] on 08-19-2024 Basophils (Bld) [#/Vol] Automated basophil count 0.0-0.1 [facility] Basophils (Bld) [#/Vol] 0.1 10 3/uL 0.0-0.1 [facility] Basophils/100 WBC Auto (Bld) on 08-19-2024 Basophils/100 WBC (Bld) Automated basophil % 0.2-2.0 [facility] Basophils/100 WBC (Bld) 1.5 % 0.2-2.0 [facility] Eosinophils/100 WBC Auto (Bl d)on 08-19-2024 Eosinophils/100 WBC (Bld) Automated eosinophil % 0.9-7.0 [facility] Eosinophils/100 WBC (Bld) 2.5 % 0.9-7.0 [facility] Erythrocyte distribution wid th Auto (RBC) [Ratio]on 08-19-2024 Erythrocyte distribution width (RBC) [Ratio] Erythrocyte distribution width [Ratio] by Automated count High 11.0-15.0 [facility] Erythrocyte distribution width (RBC) [Ratio] 16.1 % High 11.0-15.0 [facility] Estimated glomerular filtrat ion rate (GFR) non- Americanon 08-19-2024 GFR/1.73 sq M.predicted among non-blacks MDRD (S/P/Bld) [Vol rate/Area] Estimated glomerular filtration rate (GFR) non- Low >=60 mL/min/1.73m 2 [facility] GFR/1.73 sq M.predicted among non-blacks MDRD (S/P/Bld) [Vol rate/Area] 58 mL/min/{1.73_m2} Low >=60 mL/min/1.73m 2 [facility] Fibrin D-dimer [Presence] in Platelet poor plasma by Latex agglutinationon 08-19-2024 Fibrin D-dimer LA Ql (PPP) Fibrin D-dimer [Presence] in Platelet poor plasma by Latex agglutination <=0.59 [facility] Comment on above: Increases in D-Dimer concentration [...] LA Ql (PPP) 0.51 mg/L FEU <=0.59 [facility] Comment on above: Increases in D-Dimer concentration [...] of Blood by Automated count Low 42.0-54.0 [facility] Hematocrit (Bld) [Volume fraction] 41.2 % Low 42.0-54.0 [facility] Hemoglobin [Mass/volume] in Bloodon 08-19-2024 Hemoglobin (Bld) [Mass/Vol] Hemoglobin [Mass/volume] in Blood Low 14.0-18.0 [facility] Hemoglobin (Bld) [Mass/Vol] 13.6 g/dL Low 14.0-18.0 [facility] Laboratory - Chemistry and C hemistry - challengeon 08-19-2024 Calcium [Mass/Vol] 8.8 mg/dL 8.5-10.1 [facility] Chloride [Moles/Vol] 103 mmol/L 98-107 [facility] CO2 [Moles/Vol] 29.4 mmol/L 21.0-32.0 [facility] Creatinine [Mass/Vol] 1.23 mg/dL 0.70-1.30 [facility] GFR/1.73 sq M.predicted MDRD (S/P/Bld) [Vol rate/Area] mL/min/{1.73_m2} >=60 mL/min/1.73m 2 [facility] Glucose [Mass/Vol] 94 mg/dL 74-106 [facility] Natriuretic peptide B (Bld) [Mass/Vol] 147.0 pg/mL <=900.0 [facility] Potassium [Moles/Vol] 3.8 mmol/L 3.5-5.1 [facility] Sodium [Moles/Vol] 139 mmol/L 136-145 [facility] Urea nitrogen [Mass/Vol] 17.0 mg/dL 7.0-18.0 [facility] Urea nitrogen/Creatinine [Mass ratio] 13.8 mg/mg [facility] Laboratory - Hematology and Cell countson 08-19-2024 Immature granulocytes/100 WBC (Bld) 0.2 % 0.0-0.5 [facility] Leukocytes [#/volume] correc destin for nucleated erythrocytes in Blood by Automated counon 08-19-2024 WBC corrected for nucl RBC Auto (Bld) [#/Vol] Leukocytes [#/volume] corrected for nucleated erythrocytes in Blood by Automated coun 4.0-11.0 [facility] WBC corrected for nucl RBC Auto (Bld) [#/Vol] 9.2 10 3/uL 4.0-11.0 [facility] Lymphocytes Auto (Bld) [#/Vo l]on 08-19-2024 Lymphocytes (Bld) [#/Vol] Lymphocytes [#/volume] in Blood by Automated count 1.2-3.8 [facility] Lymphocytes (Bld) [#/Vol] 1.9 10 3/uL 1.2-3.8 [facility] Lymphocytes/100 WBC Auto (Bl d)on 08-19-2024 Lymphocytes/100 WBC (Bld) Lymphocytes/100 leukocytes in Blood by Automated count Low 20.5-60.0 [facility] Lymphocytes/100 WBC (Bld) 20.4 % Low 20.5-60.0 [facility] MCH Auto (RBC) [Entitic mass ]on 08-19-2024 MCH (RBC) [Entitic mass] MCH [Entitic mass] by Automated count 25.9-34.0 [facility] MCH (RBC) [Entitic mass] 30.1 pg 25.9-34.0 [facility] MCHC Auto (RBC) [Mass/Vol]on 08-19-2024 MCHC (RBC) [Mass/Vol] MCHC [Mass/volume] by Automated count 29.9-35.2 [facility] MCHC (RBC) [Mass/Vol] 33.0 g/dL 29.9-35.2 [facility] MCV Auto (RBC) [Entitic vol] on 08-19-2024 MCV (RBC) [Entitic vol] MCV [Entitic volume] by Automated count 80.0-94.0 [facility] MCV (RBC) [Entitic vol] 91.2 fL 80.0-94.0 [facility] Monocytes Auto (Bld) [#/Vol] on 08-19-2024 Monocytes (Bld) [#/Vol] Automated blood monocyte count 0.3-0.8 [facility] Monocytes (Bld) [#/Vol] 0.6 10 3/uL 0.3-0.8 [facility] Monocytes/100 WBC Auto (Bld) on 08-19-2024 Monocytes/100 WBC (Bld) Automated monocyte % 1.7-12.0 [facility] Monocytes/100 WBC (Bld) 6.7 % 1.7-12.0 [facility] Neutrophils Auto (Bld) [#/Vo l]on 08-19-2024 Neutrophils (Bld) [#/Vol] Neutrophils [#/volume] in Blood by Automated count 1.4-6.5 [facility] Neutrophils (Bld) [#/Vol] 6.3 10 3/uL 1.4-6.5 [facility] Neutrophils/100 WBC Auto (Bl d)on 08-19-2024 Neutrophils/100 WBC (Bld) Automated neutrophil % 43.0-75.0 [facility] Neutrophils/100 WBC (Bld) 68.7 % 43.0-75.0 [facility] No Panel Informationon 08-19 Eosinophils # (Auto) 0.2 10 3/uL 0.0-0.7 [facility] Immature Granulocyte # (Auto) 0.02 10 3/uL 0.00-0.03 [facility] Troponin I High Sensitivity 6.7 pg/mL 4.0-76.1 [facility] Comment on above: CUT-OFF POINTS HAVE BEEN [...] in Blood by Automated count Low 9.5-13.5 [facility] Platelet mean volume (Bld) [Entitic vol] 8.4 fL Low 9.5-13.5 [facility] Platelets Auto (Bld) [#/Vol] on 08-19-2024 Platelets (Bld) [#/Vol] Platelets [#/volume] in Blood by Automated count 150-450 [facility] Platelets (Bld) [#/Vol] 244 10 3/uL 150-450 [facility] RBC Auto (Bld) [#/Vol]on RBC (Bld) [#/Vol] Erythrocytes [#/volume] in Blood by Automated count Low 4.70-6.10 [facility] RBC (Bld) [#/Vol] 4.52 10 6/uL Low 4.70-6.10 [facility] Serum or plasma anion gap de terminationon 08-19-2024 Anion gap [Moles/Vol] Serum or plasma an ion gap determination [facility] Anion gap [Moles/Vol] 10.4 mmol/L [facility] Basophils Auto (Bld) [#/Vol] on 07-30-2024 Basophils (Bld) [#/Vol] Automated basophil count 0.0-0.1 [facility] Basophils (Bld) [#/Vol] 0.1 10 3/uL 0.0-0.1 [facility] Basophils/100 WBC Auto (Bld) on 07-30-2024 Basophils/100 WBC (Bld) Automated basophil % 0.2-2.0 [facility] Basophils/100 WBC (Bld) 1.4 % 0.2-2.0 [facility] Eosinophils/100 WBC Auto (Bl d)on 07-30-2024 Eosinophils/100 WBC (Bld) Automated eosinophil % 0.9-7.0 [facility] Eosinophils/100 WBC (Bld) 4.6 % 0.9-7.0 [facility] Erythrocyte distribution wid th Auto (RBC) [Ratio]on 07-30-2024 Erythrocyte distribution width (RBC) [Ratio] Erythrocyte distribution width [Ratio] by Automated count High 11.0-15.0 [facility] Erythrocyte distribution width (RBC) [Ratio] 15.8 % High 11.0-15.0 [facility] Estimated glomerular filtrat ion rate (GFR) non- Americanon 07-30-2024 GFR/1.73 sq M.predicted among non-blacks MDRD (S/P/Bld) [Vol rate/Area] Estimated glomerular filtration rate (GFR) non- Low >=60 mL/min/1.73m 2 [facility] GFR/1.73 sq M.predicted among non-blacks MDRD (S/P/Bld) [Vol rate/Area] 58 mL/min/{1.73_m2} Low >=60 mL/min/1.73m 2 [facility] Hematocrit Auto (Bld) [Volum e fraction]on 07-30-2024 Hematocrit (Bld) [Volume fraction] Hematocrit [Volume Fraction] of Blood by Automated count Low 42.0-54.0 [facility] Hematocrit (Bld) [Volume fraction] 41.5 % Low 42.0-54.0 [facility] Hemoglobin [Mass/volume] in Bloodon 07-30-2024 Hemoglobin (Bld) [Mass/Vol] Hemoglobin [Mass/volume] in Blood Low 14.0-18.0 [facility] Hemoglobin (Bld) [Mass/Vol] 13.5 g/dL Low 14.0-18.0 [facility] Laboratory - Chemistry and C hemistry - challengeon 07-30-2024 Calcium [Mass/Vol] 8.7 mg/dL 8.5-10.1 [facility] Chloride [Moles/Vol] 105 mmol/L 98-107 [facility] CO2 [Moles/Vol] 29.3 mmol/L 21.0-32.0 [facility] Creatinine [Mass/Vol] 1.23 mg/dL 0.70-1.30 [facility] GFR/1.73 sq M.predicted MDRD (S/P/Bld) [Vol rate/Area] mL/min/{1.73_m2} >=60 mL/min/1.73m 2 [facility] Glucose [Mass/Vol] 104 mg/dL 74-106 [facility] Potassium [Moles/Vol] 4.0 mmol/L 3.5-5.1 [facility] Sodium [Moles/Vol] 140 mmol/L 136-145 [facility] TSH Qn 3.311 m[IU]/L 0.358-3.740 [facility] Urea nitrogen [Mass/Vol] 15.0 mg/dL 7.0-18.0 [facility] Urea nitrogen/Creatinine [Mass ratio] 12.2 mg/mg [facility] Laboratory - Hematology and Cell countson 07-30-2024 Immature granulocytes/100 WBC (Bld) 0.3 % 0.0-0.5 [facility] Leukocytes [#/volume] correc destin for nucleated erythrocytes in Blood by Automated counon 07-30-2024 WBC corrected for nucl RBC Auto (Bld) [#/Vol] Leukocytes [#/volume] corrected for nucleated erythrocytes in Blood by Automated coun 4.0-11.0 [facility] WBC corrected for nucl RBC Auto (Bld) [#/Vol] 8.8 10 3/uL 4.0-11.0 [facility] Lymphocytes Auto (Bld) [#/Vo l]on 07-30-2024 Lymphocytes (Bld) [#/Vol] Lymphocytes [#/volume] in Blood by Automated count 1.2-3.8 [facility] Lymphocytes (Bld) [#/Vol] 1.5 10 3/uL 1.2-3.8 [facility] Lymphocytes/100 WBC Auto (Bl d)on 07-30-2024 Lymphocytes/100 WBC (Bld) Lymphocytes/100 leukocytes in Blood by Automated count Low 20.5-60.0 [facility] Lymphocytes/100 WBC (Bld) 17.2 % Low 20.5-60.0 [facility] MCH Auto (RBC) [Entitic mass ]on 07-30-2024 MCH (RBC) [Entitic mass] MCH [Entitic mass] by Automated count 25.9-34.0 [facility] MCH (RBC) [Entitic mass] 30.1 pg 25.9-34.0 [facility] MCHC Auto (RBC) [Mass/Vol]on 07-30-2024 MCHC (RBC) [Mass/Vol] MCHC [Mass/volume] by Automated count 29.9-35.2 [facility] MCHC (RBC) [Mass/Vol] 32.5 g/dL 29.9-35.2 [facility] MCV Auto (RBC) [Entitic vol] on 07-30-2024 MCV (RBC) [Entitic vol] MCV [Entitic volume] by Automated count 80.0-94.0 [facility] MCV (RBC) [Entitic vol] 92.4 fL 80.0-94.0 [facility] Monocytes Auto (Bld) [#/Vol] on 07-30-2024 Monocytes (Bld) [#/Vol] Automated blood monocyte count 0.3-0.8 [facility] Monocytes (Bld) [#/Vol] 0.5 10 3/uL 0.3-0.8 [facility] Monocytes/100 WBC Auto (Bld) on 07-30-2024 Monocytes/100 WBC (Bld) Automated monocyte % 1.7-12.0 [facility] Monocytes/100 WBC (Bld) 5.8 % 1.7-12.0 [facility] Neutrophils Auto (Bld) [#/Vo l]on 07-30-2024 Neutrophils (Bld) [#/Vol] Neutrophils [#/volume] in Blood by Automated count 1.4-6.5 [facility] Neutrophils (Bld) [#/Vol] 6.2 10 3/uL 1.4-6.5 [facility] Neutrophils/100 WBC Auto (Bl d)on 07-30-2024 Neutrophils/100 WBC (Bld) Automated neutrophil % 43.0-75.0 [facility] Neutrophils/100 WBC (Bld) 70.7 % 43.0-75.0 [facility] No Panel Informationon 07-30 Eosinophils # (Auto) 0.4 10 3/uL 0.0-0.7 [facility] Immature Granulocyte # (Auto) 0.03 10 3/uL 0.00-0.03 [facility] Platelet mean volume Auto (B ld) [Entitic vol]on 07-30-2024 Platelet mean volume (Bld) [Entitic vol] Platelet mean volume [Entitic volume] in Blood by Automated count Low 9.5-13.5 [facility] Platelet mean volume (Bld) [Entitic vol] 8.3 fL Low 9.5-13.5 [facility] Platelets Auto (Bld) [#/Vol] on 07-30-2024 Platelets (Bld) [#/Vol] Platelets [#/volume] in Blood by Automated count 150-450 [facility] Platelets (Bld) [#/Vol] 235 10 3/uL 150-450 [facility] RBC Auto (Bld) [#/Vol]on RBC (Bld) [#/Vol] Erythrocytes [#/volume] in Blood by Automated count Low 4.70-6.10 [facility] RBC (Bld) [#/Vol] 4.49 10 6/uL Low 4.70-6.10 [facility] Serum or plasma anion gap de terminationon 07-30-2024 Anion gap [Moles/Vol] Serum or plasma an ion gap determination [facility] Anion gap [Moles/Vol] 9.7 mmol/L [facility] Xeroform x4on 02-05-2024 Applied in clinic MAN[facility]ALL [facility]-22-2024 APPLIED IN CLINIC TODAY. MANUALLY TRANSCRIBED RESULTS [facility] [employer] [facility] 4x4on 01-15-2024 Applied in clinic today MANUALLY TRANSCRIBED RESULTS [facility] [employer] [facility] [employer] 4x4on 01-10-2024 Applied in clinic today. MANUALLY TRANSCRIBED RESULTS [facility] [employer] [facility] [employer] 4x4on 01-03-2024 Applied in clinic today MANUALLY TRANSCRIBED RESULTS [facility] No Panel Informationon 12-26 Applied in clinic today MANUALLY TRANSCRIBED RESULTS [facility] No Panel Informationon 12-17 APPLIED IN CLINIC TODAY. MANUALLY TRANSCRIBED RESULTS No Panel InformationOrdered By: Lamar Bee on 12-18-2023 [facility] [employer] 12-04-2023 Applied in clinic MANUALL Y TRANSCRIBED RESULTS [facility] [facility] A1C with Estimated Average G luon 05-31-2022 A1C with Estimated Average Glu [place] [employer] Other Basic Metabolic Panelon 05-10 Calcium [Mass/Vol] 9.6993761 mg/dL 8.5-10 .1 mg/dL [employer] Other CO2 [Moles/Vol] 30.48542690 mmol/L 21.0-3 2.0 mmol/L [employer] Other Creatinine [Mass/Vol] 1.08426313 mg/dL 0. 70-1.30 mg/dL [employer] Other Potassium [Moles/Vol] 4.56875827 mmol/L 3 .5-5.1 mmol/L [employer] Other Urea nitrogen [Mass/Vol] 16.9049558 mg/dL 7.0-18.0 mg/dL [employer] Other Basic Metabolic Panel see note Nor [employer] Other Basic Metabolic Panel 138 mmol/L 136-14 5 mmol/L [employer] Other Basic Metabolic Panel 119 mg/dL Critically high 74-106 mg /dL [employer] Other Basic Metabolic Panel >60 mL/min/1.73m2 > =60 mL/min/1.73m 2 [place] [employer] Other CBC AUTO DIFFon 05-31-2022 BASO # 0.1 103/ul Normal 0.0-0.1 [facility] Comment on above: Performed By: #### C BC #### [facility] [address] [address] [address] Yamilex Law Basophils/100 WBC (Bld) 1.8 % Normal 0.2-2.0 [facility] Comment on above: Performed By: #### C BC #### [facility] [address] [address] [address] Yamilex Law EO # 0.4 103/ul Normal 0.0-0.7 [facility] Comment on above: Performed By: #### C BC #### [facility] [address] [place] [address] Dr. Yamilex Law Eosinophils/100 WBC (Bld) 5.4 % Normal 0.9-7.0 [facility] Comment on above: Performed By: #### C BC #### [facility] [address] [place] [address] Dr. Yamilex Law Erythrocyte distribution width (RBC) [Ratio] 15.9 % Critically high 11.0-15.0 [facility] Comment on above: Performed By: #### C BC #### [facility] [address] [place] [address] Dr. Yamilex Law Hematocrit (Bld) [Volume fraction] 40.4 % Critically low 42.0-54.0 [facility] Comment on above: Performed By: #### C BC #### [facility] [address] [place] [address] Dr. Yamilex Law Hemoglobin (Bld) [Mass/Vol] 13.0 g/dL Critically low 14.0-18.0 [facility] Comment on above: Performed By: #### C BC #### [facility] [address] [place] [address] Dr. Yamilex Law IG # 0.02 10e3/ul Normal 0.00-0.03 [facility] Comment on above: Performed By: #### C BC #### [facility] [address] [place] [address] Dr. Yamilex Law IG % 0.3 % Normal 0.0-0.5 [facility] Comment on above: Performed By: #### C BC #### [facility] [address] [place] [address] Dr. Yamilex Law LYMPH # 1.4 103/ul Normal 1.2-3.8 [facility] Comment on above: Performed By: #### C BC #### [facility] [address] [place] [address] Dr. Yamilex Law Lymphocytes/100 WBC (Bld) 20.6 % Normal 20.5-60.0 [facility] Comment on above: Performed By: #### C BC #### [facility] [address] [place] [address] Dr. Yamilex Law MANUAL DIFF REQ NO Normal [facility] Comment on above: Performed By: #### C BC #### [facility] [address] [place] [address] Dr. Yamilex Law MCH (RBC) [Entitic mass] 28.9 pg Normal 25.9-34.0 [facility] Comment on above: Performed By: #### C BC #### [facility] [address] [place] [address] Dr. Yamilex Law MCHC (RBC) [Mass/Vol] 32.2 g/dL Normal 29.9-35.2 [facility] Comment on above: Performed By: #### C BC #### [facility] [address] [place] [address] Dr. Yamilex Law MCV (RBC) [Entitic vol] 89.8 fL Normal 80.0-94.0 [facility] Comment on above: Performed By: #### C BC #### [facility] [address] [place] [address] Dr. Yamilex Law MONO # 0.6 103/ul Normal 0.3-0.8 [facility] Comment on above: Performed By: #### C BC #### [facility] [address] [place] [address] Dr. Yamilex Law Monocytes/100 WBC (Bld) 8.8 % Normal 1.7-12.0 [facility] Comment on above: Performed By: #### C BC #### [facility] [address] [place] [address] Dr. Yamilex Law NEUT # 4.3 103/ul Normal 1.4-6.5 [facility] Comment on above: Performed By: #### C BC #### [facility] [address] [place] [address] Dr. Yamilex Law Neutrophils/100 WBC (Bld) 63.1 % Normal 43.0-75.0 [facility] Comment on above: Performed By: #### C BC #### [facility] [address] [place], [place] [address] Dr. Yamilex Law Platelet mean volume (Bld) [Entitic vol] 8.1 fL Critically low 9.5-13.5 [facility] Comment on above: Performed By: #### C BC #### [facility] [address] [place], [place] [address] Dr. Yamilex Law PLT 246 103/ul Normal 150-450 [facility] Comment on above: Performed By: #### C BC #### [facility] [id number] Yamilex Law RBC 4.50 106/ul Critically low 4.70-6.10 [facility] Comment on above: Performed By: #### C BC #### [facility] [address] [address] [address] Yamilex Law WBC 6.8 103/ul Normal 4.0-11.0 [facility] Comment on above: Performed By: #### C BC #### [facility] [address] [address] [address] Yamilex Law Complete Blood Count and Dif teri 05-31-2022 Anisocytosis Ql (Bld) [facility] Other Basophilic stippling LM Ql (Bld) [facility] Other RBC morphology finding Nom (Bld) [facility] Other GLYCOHEMOGLOBIN A1Con 2022 ADA RECOMMENDATION SEE BELOW Normal [facility] Comment on above: Result Comment: ADA RECOMMENDED LIMIT 4.0 - 6.0 ADA THERAPEUTIC TARGET < 7.0 ACTION SUGGESTED > 7.0 Performed By: #### A 1C #### [facility] [address] [place] [address] Dr. Yamilex Law Glucose [Mass/Vol] 105 mg/dL Normal [facility] [facility] Comment on above: Performed By: #### A 1C #### [facility] [address] [address] [address] Yamilex Law HbA1c (Bld) [Mass fraction] 5.3 % Normal 4.5-6.2 [facility] Comment on above: Performed By: #### A 1C #### [facility] [address] [address] [address] Yamilex Law PROF CHEM 8 (BAS METB)on Anion gap [Moles/Vol] 7.0 mmol/L [facility] Comment on above: Performed By: #### B MP #### [facility] [address] [place] [address] Dr. Yamilex Law Calcium [Mass/Vol] 9.0 mg/dL Normal 8.5-10.1 [facility] Comment on above: Performed By: #### B MP #### [facility] [address] [place] [address] Dr. Yamilex Law Chloride [Moles/Vol] 105 mmol/L 98-107 mmol/L [facility] Comment on above: Performed By: #### B MP #### [facility] [address] [place] [address] Dr. Yamilex Law CO2 [Moles/Vol] 30.1 mmol/L Normal 21.0-32.0 [facility] Comment on above: Performed By: #### B MP #### [facility] [address] [place] [address] Dr. Yamilex Law Creatinine [Mass/Vol] 1.01 mg/dL Normal 0.70-1.30 [facility] Comment on above: Performed By: #### B MP #### [facility] [address] [place] [address] Dr. Yamilex Law EGFR-AF UKRAINIAN >60 Normal >=60 [facility] Comment on above: Performed By: #### B MP #### [facility] [address] [place] [address] Dr. Yamilex Law EGFR-NON AF UKRAINIAN >60 Normal >=60 [facility] Comment on above: Performed By: #### B MP #### [facility] [address] [place] [address] Dr. Yamilex Law Glucose [Mass/Vol] 119 mg/dL Critically high 74-[address] [facility] Comment on above: Performed By: #### B MP #### [facility] [address] [address] [address] Yamilex Law Potassium [Moles/Vol] 4.1 mmol/L Normal 3.5-5.1 [facility] Comment on above: Performed By: #### B MP #### [facility] [address] [place] [address] Dr. Yamilex Law Sodium [Moles/Vol] 138 mmol/L Normal 136-145 [facility] Comment on above: Performed By: #### B MP #### [facility] [address] [place] [address] Dr. Yamilex Law Urea nitrogen [Mass/Vol] 16.0 mg/dL Normal 7.0-18.0 [facility] Comment on above: Performed By: #### B MP #### [facility] [address] [place] [address] Dr. Yamilex Law Urea nitrogen/Creatinine [Mass ratio] 15.8 mg/mg [facility] Comment on above: Performed By: #### B MP #### [facility] [address] [place] [address] Dr. Yamilex Law CBC AUTO DIFFon 06-08-2021 BASO # 0.1 103/ul Normal 0.0-0.1 [facility] Comment on above: Performed By: #### C BC #### [facility] [address] [place] [address] Dr. Yamilex Law Basophils/100 WBC (Bld) 1.7 % Normal 0.2-2.0 [facility] Comment on above: Performed By: #### C BC #### [facility] [address] [place] [address] Dr. Yamilex Law EO # 0.3 103/ul Normal 0.0-0.7 [facility] Comment on above: Performed By: #### C BC #### [facility] [address] [place] [address] Dr. Yamilex Law Eosinophils/100 WBC (Bld) 4.7 % Normal 0.9-7.0 [facility] Comment on above: Performed By: #### C BC #### [facility] [address] [place] [address] Dr. Yamilex Law Erythrocyte distribution width (RBC) [Ratio] 15.5 % Critically high 11.0-15.0 [facility] Comment on above: Performed By: #### C BC #### [facility] [address] [place] [address] Dr. Yamilex Law Hematocrit (Bld) [Volume fraction] 41.7 % Critically low 42.0-54.0 [facility] Comment on above: Performed By: #### C BC #### [facility] [address] [place] [address] Dr. Yamilex Law Hemoglobin (Bld) [Mass/Vol] 13.4 g/dL Critically low 14.0-18.0 [facility] Comment on above: Performed By: #### C BC #### [facility] [address] [place] [address] Dr. Yamilex Law IG # 0.03 10e3/ul Normal 0.00-0.03 [facility] Comment on above: Performed By: #### C BC #### [facility] [address] [place] [address] Dr. Yamilex Law IG % 0.5 % Normal 0.0-0.5 [facility] Comment on above: Performed By: #### C BC #### [facility] [address] [place] [address] Dr. Yamilex Law LYMPH # 1.2 103/ul Normal 1.2-3.8 [facility] Comment on above: Performed By: #### C BC #### [facility] [address] [place] [address] Dr. Yamilex Law Lymphocytes/100 WBC (Bld) 18.9 % Critically low 20.5-60.0 [facility] Comment on above: Performed By: #### C BC #### [facility] [address] [place] [address] Dr. Yamilex Law MANUAL DIFF REQ NO Normal [facility] Comment on above: Performed By: #### C BC #### [facility] [address] [place] [address] Dr. Yamilex Law MCH (RBC) [Entitic mass] 29.8 pg Normal 25.9-34.0 [facility] Comment on above: Performed By: #### C BC #### [facility] [address] [place] [address] Dr. Yamilex Law MCHC (RBC) [Mass/Vol] 32.1 g/dL Normal 29.9-35.2 [facility] Comment on above: Performed By: #### C BC #### [facility] [address] [place] [address] Dr. Yamilex Law MCV (RBC) [Entitic vol] 92.9 fL Normal 80.0-94.0 [facility] Comment on above: Performed By: #### C BC #### [facility] [address] [place] [address] Dr. Yamilex Law MONO # 0.5 103/ul Normal 0.3-0.8 [facility] Comment on above: Performed By: #### C BC #### [facility] [address] [place] [address] Dr. Yamilex Law Monocytes/100 WBC (Bld) 7.0 % Normal 1.7-12.0 [facility] Comment on above: Performed By: #### C BC #### [facility] [address] [place] [address] Dr. Yamilex Law NEUT # 4.4 103/ul Normal 1.4-6.5 [facility] Comment on above: Performed By: #### C BC #### [facility] [address] [place] [address] Dr. Yamilex Law Neutrophils/100 WBC (Bld) 67.2 % Normal 43.0-75.0 [facility] Comment on above: Performed By: #### C BC #### [facility] [address] [place] [address] Dr. Yamilex Law Platelet mean volume (Bld) [Entitic vol] 8.3 fL Critically low 9.5-13.5 [facility] Comment on above: Performed By: #### C BC #### [facility] [address] [address] [address] Yamilex Law PLT 221 103/ul Normal 150-450 [facility] Comment on above: Performed By: #### C BC #### [facility] [address] [address] [address] Yamilex Law RBC 4.49 106/ul Critically low 4.70-6.10 [facility] Comment on above: Performed By: #### C BC #### [facility] [address] [address] [address] Yamilex Law WBC 6.6 103/ul Normal 4.0-11.0 [facility] Comment on above: Performed By: #### C BC #### [facility] [address] [place] [address] Dr. Yamilex Law PROF CHEM 8 (BAS METB)on Anion gap [Moles/Vol] 11.6 mmol/L Normal [facility] Comment on above: Performed By: #### B MP #### [facility] [address] [place] [address] Dr. Yamilex Law Calcium [Mass/Vol] 8.5 mg/dL Normal 8.4-10.2 [facility] Comment on above: Performed By: #### B MP #### [facility] [address] [place] [address] Dr. Yamilex Law Chloride [Moles/Vol] 103 mmol/L Normal 98-107 [facility] Comment on above: Performed By: #### B MP #### [facility] [address] [place] [address] Dr. Yamilex Law CO2 [Moles/Vol] 29.4 mmol/L Normal 22.0-30.0 [facility] Comment on above: Performed By: #### B MP #### [facility] [address] [place] [address] Dr. Yamilex Law Creatinine [Mass/Vol] 1.10 mg/dL Normal 0.66-1.25 [facility] Comment on above: Performed By: #### B MP #### [facility] [address] [address] [address] Yamilex Law EGFR-AF UKRAINIAN >60 Normal >=60 [facility] Comment on above: Performed By: #### B MP #### [facility] [address] [place] [address] Dr. Yamilex Law EGFR-NON AF UKRAINIAN >60 Normal >=60 [facility] Comment on above: Performed By: #### B MP #### [facility] [address] [address] [address] Yamilex Law Glucose [Mass/Vol] 114 mg/dL Critically high 74-[address] [facility] Comment on above: Performed By: #### B MP #### [facility] [address] [address] [address] Yamilex Law Potassium [Moles/Vol] 4.0 mmol/L Normal 3.4-5.0 [facility] Comment on above: Performed By: #### B MP #### [facility] [address] [place] [address] Dr. Yamilex Law Sodium [Moles/Vol] 140 mmol/L Normal 137-145 [facility] Comment on above: Performed By: #### B MP #### [facility] [address] [place] [address] Dr. Yamilex Law Urea nitrogen [Mass/Vol] 15.0 mg/dL Normal 9.0-20.0 [facility] Comment on above: Performed By: #### B MP #### [facility] [address] [place] [address] Dr. Yamilex Law Urea nitrogen/Creatinine [Mass ratio] 13.6 mg/mg Normal [facility] Comment on above: Performed By: #### B MP #### [facility] [address] [place] [address] Dr. Yamilex Law COVID-19 [place] [facility] 05-19-2021 SARS-CoV-2 (COVID-19) RNA BRANDO+probe Ql (Unsp spec) Negative Normal Negative [facility] Comment on above: Order Comment: Healt hcare Worker?: N Result Comment: Testing for SARS-CoV-2 by RT-PCR This test was developed and its performance characteristics determined by [employer] and validated at the [facility]. This test has not been FDA cleared [...] is terminated or revoked sooner. PERFORMED BY: [place] [address] PATHOLOGIST [employer]URE ARCHITECT PRINCESS ALVAREZ M.D. Performed By: #### C OVID 19 [facility] #### [address] CNOVjakub 07-01-2018 CNOV Office Visit (DERMMN ) REBECA NICOLE ([id number]) 1950 M Date Time Provider Department 07/01/18 10:30 AM SANDY MULLER (RES)DERMMN During your visit today, we recorded the following information about you: Basil Al MD, 07/02/2018 11:40 AM Signed [facility] Dermatology July 01, 2018 New Patient [...] and nonspecific skin eruption [R21] Order(s):SURGICAL PATHOLOGY [0883444] Order #: [id number]. #[id number] WOUND CULTURE AND GRAM STAIN [SQWCUL] Order #: [id number]. #:[id number] HSV 1,2/VZV AMP MOLECULAR DETECT [SQHSVVZV] Order #: [id number] FUTURE Problem List As Of Date: 07/01/2018 (None) Disposition: Return in about 2 months (around 08/31/2018) for [facility]. Follow-up and Disposition History Recorded Encounter Status:Closed by BASIL AL MD on 07/02/18 [facility] HSV1,2/VZV Amplifon 07-02-19 19 HSV Type 1, HDA Negative for Herpes Simplex virus Type 1 by Molecular Detection. [facility] Comment on above: Performed By: #### H SVVZV #### [facility] [employer] [address] [address] HSV Type 2, HDA Negative for Herpes Simplex virus Type 2 by Molecular Detection. Normal [facility] Comment on above: Performed By: #### H SVVZV #### [facility] [employer] [address] [address] Specimen source Nom (Unsp spec) Lesion Normal [facility] Comment on above: Performed By: #### H SVVZV #### [facility] [employer] [address] [id number] V Zoster Virus, HDA Negative for Varicel la Zoster virus by Molecular Detection. Normal [facility] Comment on above: Performed By: #### H SVVZV #### [facility] [address] [place], [place] [address] PROGRESSon 07-01-2018 Protein mass conc HNO ID: [id number] Author: Basil Al MD Service: ? Author Type: Physician Type: Progress Notes Filed: 07/02/2018 11:40 AM Note Text: [facility] Dermatology July 01, 2018 New Patient [...] by the Resident. Basil Al MD Normal [facility] SURGICAL PATHOLOGYon 019 SURGICAL PATHOLOGY Specimen originated from [facility] Specimen #: [id number] Submitting Physician: BASIL AL FINAL DIAGNOSIS A. [...] in-situ hybridization tests have been determined by [facility]'s Demar JRandee [facility] Pathology and Laboratory Medicine [place] (RT-PLMI) in a manner consistent with CLIA requirements. One or more of these tests have not been cleared or approved by the FDA. [facility] is regulated under CLIA as qualified to [...] in one cassette. Gross examination performed at [facility], [address] [place] [address] 07/01/2018 6:33:05 PM B. Received in [facility] is one piece of tissue measuring 0.4 cm in the greatest dimension. Totally frozen for Direct Immunofluorescence. Gross examination performed at [address] 07/01/2018 7:32:29 PM Date of Report: 07/02/2018 Date of Procedure: 07/01/2018 Date of Receipt: 07/01/2018 Submitted by: BASIL AL Location: A61 Diagnostic interpretation performed at [address] [address]. CLIA Number: [id number] Normal [facility] Wound Culture/Stainon 2018 Wound Culture/Stain Sp. Request/Comment: - Eswab Smear Result - No organisms seen Few Polymorphonuclear leukocytes Culture Result - Rare skin titi Normal [facility] Comment on above: Performed By: #### W CUL #### [address] [address] [address] [place], [place] [address] Vital Signs Date Time Vital Sign Value Performing Clinician Facility 10-06-2024 09:13-0400 Body height 198.12 cm Gutierrez Ball DO Work Phone: [facility] 10-06-2024 09:13-0400 Body mass index (BMI) [Ratio] 36.7 kg/m2 Gutierrez Ball DO Work Phone: [facility] 10-06-2024 09:13-0400 Body weight 144.29 kg Gutierrez Ball DO Work Phone: [facility] 10-06-2024 09:13-0400 Diastolic blood pressure 79 mm[Hg] Gutierrez Ball DO Work Phone: [facility] 10-06-2024 09:13-0400 Heart rate 80 /min Gutierrez Ball DO Work Phone: [facility] 10-06-2024 09:13-0400 Respiratory rate 12 /min Gutierrez Ball DO Work Phone: [facility] 10-06-2024 09:13-0400 Systolic blood pressure 139 mm[Hg] Gutierrez Ball DO Work Phone: [facility] 08-28-2024 09:26-0400 Body height 198.12 cm [facility] 08-28-2024 09:26-0400 Body mass index (BMI) [Ratio] 35.9 kg/m2 [facility] 08-28-2024 09:26-0400 Body weight 140.84 kg [facility] 08-28-2024 09:26-0400 Diastolic blood pressure 77 mm[Hg] [facility] 08-28-2024 09:26-0400 Heart rate 66 /min [facility] 08-28-2024 09:26-0400 Respiratory rate 12 /min [facility] 08-28-2024 09:26-0400 Systolic blood pressure 117 mm[Hg] [facility] 07-28-2024 10:58-0400 Body height 198.12 cm [facility] 07-28-2024 10:58-0400 Body mass index (BMI) [Ratio] 36.2 kg/m2 [facility] 07-28-2024 10:58-0400 Body weight 142.2 kg [facility] 07-28-2024 10:58-0400 Diastolic blood pressure 88 mm[Hg] [facility] 07-28-2024 10:58-0400 Heart rate 65 /min [facility] 07-28-2024 10:58-0400 Respiratory rate 12 /min [facility] 07-28-2024 10:58-0400 Systolic blood pressure 146 mm[Hg] [facility] 2024 08:42-0400 Body height 198.1 cm Morales Rusher DPM Work Phone: [facility] 2024 08:42-0400 Body mass index (BMI) [Ratio] 36.4 kg/m2 Morales Rusher DPM Work Phone: [facility] 2024 08:42-0400 Body weight 142.88 kg Morales Rusher DPM Work Phone: [facility] 06-22-2024 09:02-0400 Diastolic blood pressure 124 mm[Hg] [facility] 06-22-2024 09:02-0400 Heart rate 63 /min [facility] 06-22-2024 09:02-0400 Systolic blood pressure 221 mm[Hg] [facility] 06-22-2024 09:00-0400 Body height 198.12 cm [facility] 06-22-2024 09:00-0400 Body mass index (BMI) [Ratio] 36.1 kg/m2 [facility] 06-22-2024 09:00-0400 Body weight 141.97 kg [facility] 04-28-2024 10:28-0500 Body height 198.1 cm Morales Rusher DPM Work Phone: [facility] 04-28-2024 10:28-0500 Body mass index (BMI) [Ratio] 36.4 kg/m2 Morales Rusher DPM Work Phone: [facility] 04-28-2024 10:28-0500 Body weight 142.88 kg Morales Ramon DPM Work Phone: [facility] 04-10-2024 08:10-0500 Body temperature 97.11 [degF] Catherine Ayoub OPHTHALMIC TECHNICIAN-SAND SIFTER Work Phone: [facility] 04-10-2024 08:10-0500 Diastolic blood pressure 94 mm[Hg] Catherine Ayoub OPHTHALMIC TECHNICIAN-SAND SIFTER Work Phone: [facility] 04-10-2024 08:10-0500 Heart rate 75 /min Catherine Ayoub OPHTHALMIC TECHNICIAN-SAND SIFTER Work Phone: [facility] 04-10-2024 08:10-0500 Systolic blood pressure 166 mm[Hg] Catherine Ayoub OPHTHALMIC TECHNICIAN-SAND SIFTER Work Phone: [facility] 02-26-2024 08:24-0500 Body temperature 97.11 [degF] Catherine Ayoub OPHTHALMIC TECHNICIAN-SAND SIFTER Work Phone: [facility] 02-26-2024 08:24-0500 Diastolic blood pressure 98 mm[Hg] Catherine Ayoub OPHTHALMIC TECHNICIAN-SAND SIFTER Work Phone: [facility] 02-26-2024 08:24-0500 Heart rate 61 /min Catherine Ayoub OPHTHALMIC TECHNICIAN-SAND SIFTER Work Phone: [facility] 02-26-2024 08:24-0500 Respiratory rate 16 /min Catherine Ayoub OPHTHALMIC TECHNICIAN-SAND SIFTER Work Phone: [facility] 02-26-2024 08:24-0500 Systolic blood pressure 146 mm[Hg] Catherine Ayoub OPHTHALMIC TECHNICIAN-SAND SIFTER Work Phone: [facility] 02-19-2024 08:09-0500 Body temperature 97.39 [degF] Catherine Ayoub OPHTHALMIC TECHNICIAN-SAND SIFTER Work Phone: [facility] 02-19-2024 08:09-0500 Diastolic blood pressure 82 mm[Hg] Catherine Ayoub APRN-SAND SIFTER Work Phone: [facility] 02-19-2024 08:09-0500 Heart rate 75 /min Catherine Ayoub APRN-SAND SIFTER Work Phone: [facility] 02-19-2024 08:09-0500 Respiratory rate 16 /min Catherine Ayoub APRN-SAND SIFTER Work Phone: [facility] 02-19-2024 08:09-0500 Systolic blood pressure 143 mm[Hg] Catherine Ayoub APRN-SAND SIFTER Work Phone: [facility] 02-17-2024 08:23-0500 Body height 198.1 cm Morales Noriega DPM Work Phone: [facility] 02-17-2024 08:23-0500 Body mass index (BMI) [Ratio] 36.4 kg/m2 Morales Ramon DPM Work Phone: [facility] 02-17-2024 08:23-0500 Body weight 142.88 kg Morales Ramon DPM Work Phone: [facility] 02-05-2024 08:08-0400 Body temperature 97.3 [degF] Catherine Ayoub APRN-SAND SIFTER Work Phone: [facility] 02-05-2024 08:08-0400 Diastolic blood pressure 87 mm[Hg] Catherine Ayoub APRN-SAND SIFTER Work Phone: [facility] 02-05-2024 08:08-0400 Heart rate 82 /min Catherine Ayoub APRN-SAND SIFTER Work Phone: [facility] 02-05-2024 08:08-0400 Respiratory rate 16 /min Catherine Ayoub APRN-SAND SIFTER Work Phone: [facility] 02-05-2024 08:08-0400 Systolic blood pressure 150 mm[Hg] Catherine Ayoub APRN-SAND SIFTER Work Phone: [facility] 02-03-2024 10:09-0400 Body mass index (BMI) [Ratio] 37.44 kg/m2 Lan Cho MD Work Phone: [facility] [employer] [facility] 02-03-2024 10:09-0400 Body weight 146.97 kg Lan Cho MD Work Phone: [facility] 02-03-2024 10:09-0400 Diastolic blood pressure 84 mm[Hg] Lan Cho MD Work Phone: [facility] 02-03-2024 10:09-0400 Heart rate 79 /min Lan Cho MD Work Phone: [facility] 02-03-2024 10:09-0400 Systolic blood pressure 126 mm[Hg] Lan Cho MD Work Phone: [facility] 01-22-2024 07:00-0400 Body temperature 97.3 [degF] Catherine Ayoub OPHTHALMIC TECHNICIAN-SAND SIFTER Work Phone: [facility] 01-22-2024 07:00-0400 Diastolic blood pressure 92 mm[Hg] Catherine Ayoub OPHTHALMIC TECHNICIAN-SAND SIFTER Work Phone: [facility] 01-22-2024 07:00-0400 Heart rate 74 /min Catherine Ayoub OPHTHALMIC TECHNICIAN-SAND SIFTER Work Phone: [facility] 01-22-2024 07:00-0400 Systolic blood pressure 157 mm[Hg] Catherine Ayoub OPHTHALMIC TECHNICIAN-SAND SIFTER Work Phone: [facility] 01-15-2024 08:06-0400 Body temperature 97.7 [degF] Sheyla Way OPHTHALMIC TECHNICIAN-SAND SIFTER Work Phone: [facility] 01-15-2024 08:06-0400 Diastolic blood pressure 88 mm[Hg] Sheyla Maganaiak OPHTHALMIC TECHNICIAN-SAND SIFTER Work Phone: [facility] 01-15-2024 08:06-0400 Heart rate 90 /min Sheyla [address] OPHTHALMIC TECHNICIAN-SAND SIFTER Work Phone: [facility] 01-15-2024 08:06-0400 Respiratory rate 16 /min Sheyla [address] OPHTHALMIC TECHNICIAN-SAND SIFTER Work Phone: [facility] 01-15-2024 08:06-0400 Systolic blood pressure 129 mm[Hg] Sheyla Way OPHTHALMIC TECHNICIAN-SAND SIFTER Work Phone: [facility] 01-10-2024 08:27-0400 Body temperature 97.2 [degF] Catherine Ayoub OPHTHALMIC TECHNICIAN-SAND SIFTER Work Phone: [facility] 01-10-2024 08:27-0400 Diastolic blood pressure 90 mm[Hg] Catherine Ayoub OPHTHALMIC TECHNICIAN-SAND SIFTER Work Phone: [facility] 01-10-2024 08:27-0400 Heart rate 86 /min Catherine Ayoub OPHTHALMIC TECHNICIAN-SAND SIFTER Work Phone: [facility] 01-10-2024 08:27-0400 Systolic blood pressure 141 mm[Hg] Catherine Ayoub OPHTHALMIC TECHNICIAN-SAND SIFTER Work Phone: [facility] 01-03-2024 09:32-0400 Body temperature 97.11 [degF] Catherine Ayoub OPHTHALMIC TECHNICIAN-SAND SIFTER Work Phone: [facility] 01-03-2024 09:32-0400 Diastolic blood pressure 108 mm[Hg] Catherine Ayoub OPHTHALMIC TECHNICIAN-SAND SIFTER Work Phone: [facility] 01-03-2024 09:32-0400 Heart rate 74 /min Catherine Ayoub OPHTHALMIC TECHNICIAN-SAND [employer]IFTER Work Phone: [facility] 01-03-2024 09:32-0400 Respiratory rate 16 /min Catherine Ayoub OPHTHALMIC TECHNICIAN-SAND [employer]IFTER Work Phone: [facility] 01-03-2024 09:32-0400 Systolic blood pressure 160 mm[Hg] Catherine Ayoub OPHTHALMIC TECHNICIAN-SAND SIFTER Work Phone: [facility] 12-27-2023 08:15-0400 Body temperature 97.9 [degF] Catherine Ayoub OPHTHALMIC TECHNICIAN-SAND SIFTER Work Phone: [facility] 12-27-2023 08:15-0400 Diastolic blood pressure 99 mm[Hg] Catherine Ayoub OPHTHALMIC TECHNICIAN-SAND SIFTER Work Phone: [facility] 12-27-2023 08:15-0400 Heart rate 82 /min Catherine Ayoub OPHTHALMIC TECHNICIAN-SAND SIFTER Work Phone: [facility] 12-27-2023 08:15-0400 Respiratory rate 16 /min Catherine Ayoub OPHTHALMIC TECHNICIAN-SAND SIFTER Work Phone: [facility] 12-27-2023 08:15-0400 Systolic blood pressure 142 mm[Hg] Catherine Ayoub OPHTHALMIC TECHNICIAN-SAND SIFTER Work Phone: [facility] 12-25-2023 09:02-0400 Body temperature 97.5 [degF] Catherine Ayoub OPHTHALMIC TECHNICIAN-SAND SIFTER Work Phone: [facility] 12-25-2023 09:02-0400 Diastolic blood pressure 90 mm[Hg] Catherine Ayoub OPHTHALMIC TECHNICIAN-SAND SIFTER Work Phone: [facility] 12-25-2023 09:02-0400 Heart rate 73 /min Catherine Ayoub OPHTHALMIC TECHNICIAN-SAND SIFTER Work Phone: [facility] 12-25-2023 09:02-0400 Respiratory rate 16 /min Catherine Ayoub OPHTHALMIC TECHNICIAN-SAND SIFTER Work Phone: [facility] 12-25-2023 09:02-0400 Systolic blood pressure 133 mm[Hg] Catherine Ayoub OPHTHALMIC TECHNICIAN-SAND SIFTER Work Phone: [facility] 12-18-2023 09:00-0400 Body temperature 97.3 [degF] Catherine Ayoub OPHTHALMIC TECHNICIAN-SAND SIFTER Work Phone: [facility] 12-18-2023 09:00-0400 Diastolic blood pressure 91 mm[Hg] Catherine Ayoub OPHTHALMIC TECHNICIAN-SAND SIFTER Work Phone: [facility] 12-18-2023 09:00-0400 Heart rate 68 /min Catherine Ayoub OPHTHALMIC TECHNICIAN-SAND SIFTER Work Phone: [facility] 12-18-2023 09:00-0400 Respiratory rate 16 /min Catherine Ayoub APRN-SAND SIFTER Work Phone: [facility] 12-18-2023 09:00-0400 Systolic blood pressure 150 mm[Hg] Catherine Ayoub APRN-SAND SIFTER Work Phone: [facility] 12-04-2023 08:48-0400 Body temperature 98.91 [degF] Catherine Ayoub APRN-SAND SIFTER Work Phone: [facility] 12-04-2023 08:48-0400 Diastolic blood pressure 82 mm[Hg] Catherine Ayoub APRN-SAND SIFTER Work Phone: [facility] 12-04-2023 08:48-0400 Heart rate 79 /min Catherine Ayoub APRN-SAND SIFTER Work Phone: [facility] 12-04-2023 08:48-0400 Respiratory rate 16 /min Catherine Ayoub APRN-SAND SIFTER Work Phone: [facility] 12-04-2023 08:48-0400 Systolic blood pressure 137 mm[Hg] Catherine Ayoub APRN-SAND SIFTER Work Phone: [facility] 09-16-2023 10:14-0400 Body height 200.66 cm [facility] 09-16-2023 10:14-0400 Body mass index (BMI) [Ratio] 36.6 kg/m2 [facility] 09-16-2023 10:14-0400 Body weight 147.41 [facility] 09-16-2023 10:14-0400 Diastolic blood pressure 95 mm[Hg] [facility] 09-16-2023 10:14-0400 Heart rate 69 /min [facility] 09-16-2023 10:14-0400 Respiratory rate 12 /min [facility] 09-16-2023 10:14-0400 Systolic blood pressure 152 mm[Hg] [facility] 05-28-2022 09:00-0500 Body height 198.12 cm Gutierrez Laron Other [employer] Other 05-28-2022 09:00-0500 Body mass index (BMI) [Ratio] 38.43 kg/m2 Gutierrez Ball Other [employer] Other 05-28-2022 09:00-0500 Body weight 150.87 kg Gutierrez Ball Other [employer] Other 05-28-2022 09:00-0500 Diastolic blood pressure 70 mm[Hg] Gutierrez Ball Other [place] [employer] Other 05-28-2022 09:00-0500 Respiratory rate 12 /min Gutierrez Ball Other [place] [employer] Other 05-28-2022 09:00-0500 Systolic blood pressure 118 mm[Hg] Gutierrez Ball Other [place] [employer] Other 05-09-2022 11:16-0500 Diastolic blood pressure 79 mm[Hg] DO Gutierrez Ball Work Phone: [facility] 05-09-2022 11:16-0500 Heart rate 77 /min DO Gutierrez Ball Work Phone: [facility] 05-09-2022 11:16-0500 Respiratory rate 16 /min DO Gutierrez Ball Work Phone: [facility] 05-09-2022 11:16-0500 SaO2% (BldA) [Mass fraction] 98 % DO Gutierrez Ball Work Phone: [facility] 05-09-2022 11:16-0500 Systolic blood pressure 143 mm[Hg] DO Gutierrez Ball Work Phone: [facility] 05-09-2022 10:07-0500 Body height 198.12 cm DO Gutierrez Ball Work Phone: [facility] 05-09-2022 10:07-0500 Body temperature 97.6 [degF] DO Gutierrez Larry Work Phone: [facility] 05-09-2022 10:07-0500 Body weight 146.51 kg DO Gutierrez Larry Work Phone: [facility] Encounters Encounter Date Encounter Type Care Provider Facility Start: 10-06-2024 End: 10-06-2024 ambulatory Gutierrez Larry DO Work Phone: [facility] Work Phone: Start: 10-06-2024 End: 10-06-2024 Patient encounter procedure Gutierrez Larry DO -[facility] Work Phone: Start: 08-28-2024 End: 08-28-2024 ambulatory [facility] Work Phone: Start: 08-28-2024 End: 08-28-2024 Patient encounter procedure [facility] Work Phone: Start: 08-28-2024 Non-patient / Non-visit [facility] Work Phone: Start: 08-25-2024 End: 08-25-2024 ambulatory YESSENIA DELCID [facility] Start: 08-22-2024 Evaluation and management of inpatient ALIS MARIA EUGENIA [facility] Start: 08-22-2024 Evaluation and management of inpatient HAIM [facility] Start: 08-21-2024 Evaluation and management of inpatient HAIM [facility] Start: 08-20-2024 Evaluation and management of inpatient MALIKA RAMOS [facility] Start: 08-20-2024 End: 08-22-2024 Evaluation and management of inpatient ANU CINTRON [facility] Start: 08-19-2024 Non-patient / Non-visit [facility] Work Phone: Start: 07-30-2024 Non-patient / Non-visit [facility] Work Phone: Start: 07-28-2024 End: 07-28-2024 ambulatory [facility] Work Phone: Start: 07-28-2024 End: 07-28-2024 Patient encounter procedure [facility] Work Phone: Start: 2024 End: 2024 Bamboo flowsheet Morales Ramon DPM Work Phone: [facility] Start: 2024 End: 2024 Bamboo flowsheet Morales Ramon DPM Work Phone: [facility] Start: 2024 End: 2024 Patient encounter procedure Morales Ramon DPM Work Phone: [facility] Comment on above: Corns and callositie s (Primary Dx); Onychomycosis; Onychodystrophy; Right foot pain; Left foot pain Start: 2024 End: 2024 ambulatory MORALES RAMON Not Available Start: 06-22-2024 End: 06-22-2024 ambulatory [facility] Work Phone: Start: 06-22-2024 End: 06-22-2024 Patient encounter procedure [facility] Work Phone: Start: 04-28-2024 End: 04-28-2024 Bamboo flowsheet Morales Ramon DPM Work Phone: [facility] Start: 04-28-2024 End: 04-28-2024 Bamboo flowsheet Morales Ramon DPM Work Phone: [facility] Start: 04-28-2024 End: 04-28-2024 Office outpatient visit 15 minutes Morales Ramon DPM Work Phone: [facility] Comment on above: Corns and callositie s (Primary Dx); Right foot pain; Onychomycosis Start: 04-28-2024 End: 04-28-2024 ambulatory MORALES RAMON Not Available Start: 04-10-2024 End: 04-10-2024 ambulatory CATHERINE AYOUB [facility] Start: 04-10-2024 End: 04-10-2024 Office outpatient visit 10 minutes Catehrine Ayoub OPHTHALMIC TECHNICIAN-SAND SIFTER Work Phone: [facility] Comment on above: Venous stasis ulcer of left ankle limited to breakdown of skin with varicose veins (CMS-HCC) (Primary Dx) Start: 03-10-2024 End: 03-10-2024 Telephone encounter Lan Cho MD Work Phone: [facility] Comment on above: cancel procedure Start: 02-28-2024 End: 02-28-2024 Refill Lan Cho MD Work Phone: [facility] Comment on above: Pre-operative anxiet y (Primary Dx); Venous stasis ulcer of left ankle limited to breakdown of skin with varicose veins (CMS-HCC) procedure time law e Start: 02-26-2024 End: 02-26-2024 ambulatory CATHERINE AYOUB [facility] Start: 02-26-2024 End: 02-26-2024 Office outpatient visit 10 minutes Catherine Ayoub OPHTHALMIC TECHNICIAN-SAND SIFTER Work Phone: [facility] Comment on above: Venous stasis ulcer of left ankle limited to breakdown of skin, unspecified whether varicose veins present ([facility]-HCC) (Primary Dx); Edema of left lower leg Start: 02-19-2024 End: 02-19-2024 ambulatory CATHERINE AYOUB [facility] Start: 02-19-2024 End: 02-19-2024 Office outpatient visit 15 minutes Catherine Ayoub OPHTHALMIC TECHNICIAN-SAND SIFTER Work Phone: [facility] Comment on above: Venous stasis ulcer of left ankle limited to breakdown of skin with varicose veins ([facility]-HCC) (Primary Dx); Rash due to allergy Start: 02-17-2024 End: 02-17-2024 Bamboo flowsheet Morales S Hari DPM Work Phone: [facility] Start: 02-17-2024 End: 02-17-2024 Bamboo flowsheet Morales Ramon DPM Work Phone: [facility] Start: 02-17-2024 End: 02-17-2024 Patient encounter procedure Morales S Yenny DPM Work Phone: [facility] Comment on above: Corns and callositie s (Primary Dx); Onychomycosis; Right foot pain Start: 02-17-2024 End: 02-17-2024 ambulatory MORALES RAMON Not Available Start: 02-14-2024 End: 02-14-2024 Orders Only Catherine Ayoub OPHTHALMIC TECHNICIAN-SAND SIFTER Work Phone: [facility] Comment on above: Venous stasis ulcer of left ankle limited to breakdown of skin with varicose veins (CMS-HCC) Start: 02-05-2024 End: 02-05-2024 ambulatory CATHERINE Acuna ANITRA [facility] Comment on above: Venous stasis ulcer of left ankle limited to breakdown of skin with varicose veins (CMS-HCC) (Primary Dx); Venous insufficiency of left lower extremity; Varicose veins of left lower extremity with pain; Phlebitis Start: 02-05-2024 End: 02-05-2024 Office outpatient visit 15 minutes Catherine Acuna Anitra OPHTHALMIC TECHNICIAN-SAND SIFTER Work Phone: [facility] Comment on above: Venous stasis ulcer of left ankle limited to breakdown of skin with varicose veins (CMS-HCC) (Primary Dx); Edema of left lower leg Start: 02-03-2024 End: 02-03-2024 Office outpatient visit 25 minutes Lan Cho MD Work Phone: [facility] Comment on above: Venous insufficiency of left lower extremity (Primary Dx); Venous stasis ulcer of left ankle limited to breakdown of skin with varicose veins (CMS-HCC) Start: 02-03-2024 End: 02-03-2024 ambulatory LAN CHO [facility] Start: 01-22-2024 End: 01-22-2024 Office outpatient visit 15 minutes Catherine Ayoub OPHTHALMIC TECHNICIAN-SAND SIFTER Work Phone: [facility] Comment on above: Venous stasis ulcer of left ankle limited to breakdown of skin with varicose veins (CMS-HCC) (Primary Dx) Start: 01-22-2024 End: 01-22-2024 ambulatory CATHERINE AYOUB [facility] Start: 01-15-2024 End: 01-15-2024 Office outpatient visit 15 minutes Catherine Ayoub OPHTHALMIC TECHNICIAN-SAND SIFTER Work Phone: [facility] Comment on above: Venous stasis ulcer of left ankle limited to breakdown of skin with varicose veins ([facility]-HCC) (Primary Dx) Start: 01-15-2024 End: 01-15-[address] [facility] Start: 01-10-2024 End: 01-10-2024 Office outpatient visit 15 minutes Catherine Ayoub OPHTHALMIC TECHNICIAN-SAND SIFTER Work Phone: [facility] Comment on above: Venous stasis ulcer of left ankle limited to breakdown of skin with varicose veins (CMS-HCC) (Primary Dx) Start: 01-10-2024 End: 01-10-2024 ambulatory CATHERINE AYOUB [facility] Start: 01-03-2024 End: 01-03-2024 Office outpatient visit 10 minutes Catherine Ayoub OPHTHALMIC TECHNICIAN-SAND SIFTER Work Phone: [facility] Comment on above: Venous stasis ulcer of left ankle limited to breakdown of skin with varicose veins (CMS-HCC) (Primary Dx); Venous stasis ulcer of left ankle limited to breakdown of skin, unspecified whether varicose veins present (CMS-HCC) Start: 01-03-2024 End: 01-03-2024 ambulatory CATHERINE AYOUB [facility] Start: 12-27-2023 End: 12-27-2023 Patient encounter procedure Catherine Ayoub OPHTHALMIC TECHNICIAN-SAND SIFTER Work Phone: [facility] Comment on above: Venous stasis ulcer of left ankle limited to breakdown of skin without varicose veins (CMS-HCC) (Primary Dx) Start: 12-27-2023 End: 12-27-2023 ambulatory GUTIERREZ LARRY [facility] Start: 12-26-2023 End: 12-26-2023 ambulatory CATHERINE AYOUB [facility] Start: 12-25-2023 End: 12-25-2023 Office outpatient visit 10 minutes Catherine Ayoub OPHTHALMIC TECHNICIAN-SAND SIFTER Work Phone: [facility] Comment on above: Venous stasis ulcer of left ankle limited to breakdown of skin, unspecified whether varicose veins present (CMS-HCC) (Primary Dx); Venous stasis ulcer of left ankle limited to breakdown of skin without varicose veins (CMS-HCC) Start: 12-25-2023 End: 12-25-2023 ambulatory CATHERINE AYOUB [facility] Start: 12-18-2023 End: 12-18-2023 Office outpatient visit 15 minutes Catherine Ayoub OPHTHALMIC TECHNICIAN-SAND SIFTER Work Phone: [facility] Comment on above: Venous stasis ulcer of left ankle limited to breakdown of skin without varicose veins (CMS-HCC) (Primary Dx); Edema of left lower leg Start: 12-18-2023 End: 12-18-2023 ambulatory CATHERINE AYOUB [facility] Start: 12-05-2023 End: 12-05-2023 Orders Only Catherine Ayoub OPHTHALMIC TECHNICIAN-SAND SIFTER Work Phone: [facility] Comment on above: Venous stasis ulcer of left ankle limited to breakdown of skin, unspecified whether varicose veins present (CMS-HCC) (Primary Dx) Start: 12-04-2023 End: 12-04-2023 Office outpatient new 20 minutes Catherine Ayoub OPHTHALMIC TECHNICIAN-SAND SIFTER Work Phone: [facility] Comment on above: Traumatic open wound of left lower leg with delayed healing (Primary Dx); Edema of left lower leg; Venous stasis ulcer of left ankle limited to breakdown of skin, unspecified whether varicose veins present ([facility]-HCC) Start: 12-04-2023 End: 12-04-2023 ambulatory CATHERINE AYOUB [facility] Start: 11-19-2023 End: 11-19-2023 ambulatory MORALES Hurt RUSHER Not Available Start: 11-12-2023 End: 11-12-2023 ambulatory MOARLES S RUSHER Not Available Start: 11-05-2023 End: 11-05-2023 ambulatory MORALES S RUSHER Not Available Start: 09-16-2023 End: 09-16-2023 ambulatory [facility] Work Phone: Start: 09-16-2023 End: 09-16-2023 Patient encounter procedure [facility] Work Phone: Start: 08-13-2023 End: 08-13-2023 ambulatory MORALES S RUSHER Not Available Start: 11-01-2022 End: 11-01-2022 ambulatory Reji Roy Other [employer] Other Start: 11-01-2022 Telephone encounter Reji Gomez [facility] Start: 07-18-2022 End: 07-18-2022 ambulatory Gutierrez Larry Other [employer] Other Start: 07-18-2022 Office outpatient vi sit 15 minutes Gutierrez Larry [facility] Start: 05-31-2022 End: 06-01-[address] GUTIERREZ LARRY Facility:[facility] Start: 05-28-2022 End: 05-28-2022 ambulatory Gutierrez Larry Other [employer] Other Start: 05-28-2022 Patient encounter procedure Gutierrez Larry [facility] Start: 05-09-2022 Telephone encounter Gutierrez Gomez [facility] Start: 05-09-2022 End: 05-09-2022 ambulatory Reji Roy Facility:[facility] Start: 05-09-2022 End: 05-09-2022 Admission to same day surgery center DO Gutierrez Laron Work Phone: [facility] Work Phone: Start: 05-09-2022 End: 05-09-2022 ambulatory DO Gutierrez Laron Work Phone: [facility] Work Phone: Start: 12-26-2021 End: 12-26-2021 ambulatory Reji Roy Other [employer] Other Start: 12-26-2021 Telephone encounter Reji MINA G [facility] Start: 09-21-2021 End: 09-21-2021 ambulatory Reji Roy Other [employer] Other Start: 09-21-2021 Telephone encounter Reji MINA [facility] Start: 06-13-2021 End: 06-14-[address] GUTIERREZ LARRY Facility:[facility] Start: 06-08-2021 End: 06-09-[address] GUTIERREZ LARRY Facility:[facility] Start: 05-23-2021 End: 05-23-2021 ambulatory Reji Roy Facility:[facility] Start: 05-19-2021 End: 05-19-2021 ambulatory Reji Roy Facility:[facility] Start: 12-26-2020 Adult health examination Reji Roy Other [employer] Other Start: 07-01-2018 End: 07-10-2018 Patient encounter procedure SANDY (GLYNN WILLETT [facility] Procedures Date Procedure Procedure Detail Performing Clinician Start: 02-05-2024 NURSING COMMUNICATION Xiomara Ayoub OPHTHALMIC TECHNICIAN-SAND SIFTER Work Phone: Start: 01-22-2024 NURSING COMMUNICATION Xiomara Ayoub OPHTHALMIC TECHNICIAN-SAND SIFTER Work Phone: Start: 01-15-2024 NURSING COMMUNICATION Xiomara Ayoub OPHTHALMIC TECHNICIAN-SAND SIFTER Work Phone: Start: 01-10-2024 NURSING COMMUNICATION Xiomara Ayoub OPHTHALMIC TECHNICIAN-SAND SIFTER Work Phone: Start: 01-03-2024 NURSING COMMUNICATION Xiomara Ayoub OPHTHALMIC TECHNICIAN-SAND SIFTER Work Phone: Start: 12-27-2023 NURSING COMMUNICATION Xiomara Ayoub OPHTHALMIC TECHNICIAN-SAND SIFTER Work Phone: Start: 12-18-2023 NURSING COMMUNICATION Xiomara Ayoub OPHTHALMIC TECHNICIAN-SAND SIFTER Work Phone: Start: 12-04-2023 NURSING COMMUNICATION Xiomara Ayoub OPHTHALMIC TECHNICIAN-SAND SIFTER Work Phone: Start: 05-31-[address] ISMAEL LARRY Comment on above: Performed By: #### P [facility] #### [facility] [address] [place] [address] Dr. Yamilex Law Start: 05-09-2022 Colonoscopy DO [...] Author Start: 04-10-2025 Tobacco Screening Tobacco Screening [facility] Start: 02-25-2025 Tobacco Screening Tobacco Screening [facility] Start: 02-18-2025 Tobacco Screening Tobacco Screening [facility] Start: 02-04-2025 Tobacco Screening Tobacco Screening [facility] Start: 02-02-2025 Adult BMI Screening Adult BMI Screen ing [facility] Start: 01-21-2025 Tobacco Screening Tobacco Screening [facility] Start: 01-14-2025 Tobacco Screening Tobacco Screening [facility] Start: 01-09-2025 Tobacco Screening Tobacco Screening [facility] Start: 12-24-2024 Tobacco Screening Tobacco Screening [facility] Start: 12-17-2024 Tobacco Screening Tobacco Screening [facility] Start: 12-03-2024 Tobacco Screening Tobacco Screening [facility] Start: 2024 End: 2024 Patient encounter procedure 2024 8:45 AM EDT Office Visit [facility] [address] [place] [id number] Morales Ramon, DPM [address] [place], [place] [id number] Arrived [facility] Comment on above: Arrived Start: 04-28-2024 End: 04-28-2024 Patient encounter procedure 04/28/2024 10:30 AM EST Office Visit [facility] [address] [place] [address] Morales Ramon, DPM [address] [place] [address] Arrived [facility] Comment on above: Arrived Start: 03-25-2024 End: 03-25-2024 Patient encounter procedure 03/25/2024 8:00 AM EST Office Visit [facility] [address] [place] [phone] Catherine Ayoub, OPHTHALMIC TECHNICIAN-SAND SIFTER [address] [place] [address] [facility] Start: 03-18-2024 End: 03-18-2024 Patient encounter procedure [facility] Start: 03-13-2024 End: 03-13-2024 Patient encounter procedure 03/13/2024 3:30 PM EST Procedure visit [facility] [address] [facility] [address] [place] [address] Lan Cho MD [address] [facility] [address] [place] [address] [facility] Start: 02-26-2024 End: 02-26-2024 Patient encounter procedure 02/26/2024 8:20 AM EST Office Visit [facility] [address] [place] [address] Catherine Ayoub, OPHTHALMIC TECHNICIAN-SAND SIFTER [address] [place] [address] [facility] Start: 02-19-2024 End: 02-19-2024 Patient encounter procedure 02/19/2024 8:00 AM EST Office Visit [facility] [address] [place] [address] Catherine Ayoub, OPHTHALMIC TECHNICIAN-SAND SIFTER [address] [place] [address] [facility] Start: 02-17-2024 End: 02-17-2024 Patient encounter procedure 02/17/2024 8:30 AM EST Office Visit [facility] [address] [place] [phone] Morales Ramon, DPM [address] [place] [address] Arrived [facility] Comment on above: Arrived Start: 02-05-2024 End: 02-04-2025 US.doppler Lower extremity vein - left Vas venous duplex lwr single left Vascular Ultrasound Routine Venous stasis ulcer of left ankle limited to breakdown of skin with varicose veins (CMS-HCC) Venous insufficiency of left lower extremity Varicose veins of left lower extremity with pain Phlebitis Expected: 02/05/2024, Expires: 02/04/2025 [employer] Work Phone: Comment on above: Expected: 02/05/2024 , Expires: 02/04/2025 Start: 02-05-2024 End: 02-05-2024 Patient encounter procedure 02/05/2024 8:00 AM EDT Office Visit [facility] [address] [place] [phone] Catherine Ayoub, OPHTHALMIC TECHNICIAN-SAND SIFTER [address] [place], [place] [id number] [facility] Start: 02-03-2024 End: 02-02-2025 Guidance for laser ablation of Extremity vein Vein Treatment Vascular Ultrasound Routine Venous stasis ulcer of left ankle limited to breakdown of skin with varicose veins (CMS-HCC) Venous insufficiency of left lower extremity Expected: 02/03/2024, Expires: 02/02/2025 [employer] Work Phone: Comment on above: Expected: 02/03/2024 , Expires: 02/02/2025 Start: 02-03-2024 End: 02-03-2024 Patient encounter procedure 02/03/2024 10:00 AM EDT Office Visit [facility] [place] [address] [place] [address] [place] [address] [place] [address] [facility] Start: 01-22-2024 End: 01-22-2024 Patient encounter procedure 01/22/2024 8:00 AM EDT Office Visit [facility] [address] [place] [address] Catherine Ayoub, OPHTHALMIC TECHNICIAN-SAND SIFTER [address] [place] [address] [facility] Start: 01-15-2024 End: 01-15-2024 Patient encounter procedure 01/15/2024 8:00 AM EDT Office Visit [facility] [address] [place] [id number] Catherine Ayoub, OPHTHALMIC TECHNICIAN-SAND SIFTER [address] [place] [address], OPHTHALMIC TECHNICIAN-SAND SIFTER [address] [place] [address] [facility] Start: 01-10-2024 End: 01-10-2024 Patient encounter procedure 01/10/2024 8:20 AM EDT Office Visit [facility] [address] [place] [address] Catherine Ayoub, OPHTHALMIC TECHNICIAN-SAND SIFTER [address] [place] [address] [facility] Start: 01-03-2024 End: 01-03-2024 Patient encounter procedure 01/03/2024 9:30 AM EDT Office Visit [facility] [address] [place] [phone] Catherine Ayoub, OPHTHALMIC TECHNICIAN-SAND SIFTER [address] [place] [address] [facility] Start: 01-01-2024 End: 01-01-2024 Patient encounter procedure 01/01/2024 9:00 AM EDT Office Visit [facility] [address] [place] [address] Catherine Ayoub, OPHTHALMIC TECHNICIAN-SAND SIFTER [address] [place] [address] [facility] Start: 12-27-2023 End: 12-27-2023 Patient encounter procedure 12/27/2023 8:00 AM EDT Office Visit [facility] [address] [place] [address] Catherine Ayoub, OPHTHALMIC TECHNICIAN-SAND SIFTER [address] [place] [address] [facility] Start: 12-26-2023 End: 12-26-2023 Patient encounter procedure 12/26/2023 1:30 PM EDT Appointment [facility] [address] [place] [address] Catherine Ayoub, OPHTHALMIC TECHNICIAN-SAND SIFTER [address] [place] [address] [facility] Start: 12-25-2023 End: 12-25-2023 Patient encounter procedure 12/25/2023 9:00 AM EDT Office Visit [facility] [address] [place] [address] Catherine Ayoub, OPHTHALMIC TECHNICIAN-SAND SIFTER [address] [place] [address] [facility] Start: 12-18-2023 End: 12-17-2024 US.doppler Lower extremity vein - left Vas venous duplex insufficiency lwr lt Vascular Ultrasound Routine Venous stasis ulcer of left ankle limited to breakdown of skin without varicose veins (CMS-HCC) Edema of left lower leg Expected: 12/18/2023, Expires: 12/17/2024 [facility] Work Phone: Comment on above: Expected: 12/18/2023 , Expires: 12/17/2024 Start: 12-18-2023 End: 12-18-2023 Patient encounter procedure 12/18/2023 9:00 AM EDT Office Visit [facility] [address] [place] [address] Catherine Ayoub, OPHTHALMIC TECHNICIAN-SAND SIFTER [address] [place] [address] [facility] Start: 12-08-2023 Influenza vaccination Influenza Vacc ine [facility] Start: 05-09-2022 [facility] Start: 07-09-2015 Abdominal aortic aneurysm screening Abdominal Aortic Aneurysm (AAA) Screen [facility] Start: 07-09-2015 Fall Risk Screening Fall Risk Screen ing [facility] Start: 02-01-2009 DTaP,Tdap and Td Vaccines (2 - Tdap) DTaP,Tdap and Td Vaccines (2 - Tdap) [facility] Start: 2000 Administration of varicella zoster vaccine Zoster (Shingles) Vaccine (1 of 2) [facility] Start: 1968 Adult BMI Screening Adult BMI Screen ing [facility] Start: 1962 Depression Screening Depression Scre ening [facility] Start: 1950 Medicare Annual Well ness Visit Medicare Annual Wellness Visit [facility] Comprehensive metabo lic 2000 panel - Serum or Plasma [facility] Holter monitor study [facility] Patient Education Hemorrhoids Diverticulosis [facility] Work Phone: [facility] Immunizations Immunization Date Immunization Notes Care Provider Fa malka 05-13-2018 pneumococcal conjuga te vaccine, 13 valent Gutierrez Larry Other [facility] 05-13-2018 pneumococcal Conjuga te, unspecified formulation; Translations: [Need for prophylactic vaccination against Streptococcus pneumoniae (pneumococcus)] Reji Ditty Other [employer] Other 02-01-1999 diphtheria and tetan us toxoids, adsorbed for pediatric use Morales Raomn DPM Work Phone: [facility] Payers Date Payer Category Payer Medicaid AETNA MEDICARE A DVANTAGE [id number] 2021 Self-pay [id number] 2016 Medicare AETNA MEDICARE A ETNA MEDICARE PLAN (PPO) [id number] 2016-Present [phone] [address] [place] [address] [id number] 2016 Medicare HMO AETNA MEDICARE [id number] 1959 Medicare [id number] 2.16.840.1.774210.19 1950 Unknown [id number] 2.16.840.1.305601.3.579.2. 593 1950 Unknown [id number] 2.16.840.1.098824.3.579.2. 593 1950 Unknown [id number] 2.16.840.1.692735.3.579.2. 593 1950 Unknown [id number] 2.16.840.1.956050.3.579.2. 593 1950 Unknown [id number] 2.16.840.1.303457.3.579.2. 1286 1950 Unknown [id number] 2.16.840.1.606904.3.579.2. 128 1950 Unknown [id number] 2.16.840.1.084573.3.579.2. 1286 1950 Unknown [id number] 2.16.840.1.068582.3.579.2. 1286 1950 Unknown [id number] 2.16.840.1.154594.3.579.2. 1286 1950 Unknown [id number] 2.16.840.1.392637.3.579.2. 1285 1950 Unknown [id number] 2.16.840.1.761418.3.579.2. 1286 1950 Unknown [id number] 2.16.840.1.514587.3.579.2. 1285 1950 Unknown [id number] 2.16.840.1.067488.3.579.2. 1285 1950 Unknown [id number] 2.16.840.1.770618.3.579.2. 1285 1950 Unknown [id number] 2.16.840.1.686037.3.579.2. 1285 1950 Unknown [id number] 2.16.840.1.754615.3.579.2. 1285 1950 Unknown [id number] 2.16.840.1.397655.3.579.2. 1285 1950 Unknown [id number] 2.16.840.1.887051.3.579.2. 1285 1950 Unknown [id number] 2.16.840.1.452995.3.579.2. 1258 1950 Unknown [id number] 2.16.840.1.976177.3.579.2. 9 1950 Unknown [id number] 2.16.840.1.019853.3.579.2. 1258 1950 Unknown [id number] 2.16.840.1.775861.3.579.2. 9 1950 Unknown [id number] 2.16.840.1.201642.3.579.2. 1258 1950 Unknown [id number] 2.16.840.1.048859.3.579.2. 9 1950 Unknown [id number] 2.16.840.1.078538.3.579.2. 1259 Medicare Medicare [id number] Private Health Insurance Aetna Mcr PFFS N on Pt [id number] Unknown [facility] [id number] Unknown [id number] 2.16.840.1.330486.3.579.2. 531 Unknown [id number] 2.16.840.1.648237.3.579.2. 531 Unknown [id number] 2.16.840.1.763875.3.579.2. 531 Social History Date Type Detail Facility Start: 11-19-2023 End: 04-28-2024 Sex Assigned At [employer] [facility] Start: 05-09-2022 End: 10-06-2024 Tobacco smoking status NHIS Ex-smoker (finding) [facility] Start: 1950 Sex Assigned At Male [facility] Start: 04-29-1970 End: 04-08-1984 History of tobacco use Current smoker [facility] Start: 04-29-1970 End: 04-08-1984 History of tobacco use Cigarette Smoker [facility] Start: 11-05-2023 End: 04-28-2024 Cigarettes smoked current (pack per day) - Reported 1.5 [facility] Start: 11-05-2023 End: 01-10-2024 Tobacco use and exposure Smokeless tobacco non-user [facility] Start: 11-19-2023 End: 2024 Alcoholic beverage intake Ex-drinker (finding) [facility] Start: 05-03-2023 Tobacco Comment Last smoked >10 years [facility] Start: 11-05-2023 Alcohol Comment Occasionally [facility] Start: 1950 Sex assigned at Not on file [facility] [employer] Start: 02-26-2024 End: 04-10-2024 Alcoholic beverage intake Lifetime non-drinker (finding) [facility] Childcare Unknown [facility] Start: 11-11-2014 End: 08-28-2024 Sex Male (finding) [facility] [employer] Medical Equipment Procedure Code Equipment Code Equipment Origin al Text Equipment Identifier Dates Fusion, spine, lumbar, XLIF STRATOFUSE DBM 10CC FDA Start: 03-02-2019 Fusion, spine, lumbar, XLIF Bone-screw internal spinal fixation system, non-sterile ()[id number] FDA Start: 03-02-2019 Fusion, spine, lumbar, XLIF Bone-screw internal spinal fixation system, non-sterile ()[id number] FDA Start: 03-02-2019 Fusion, spine, lumbar, XLIF Bone-screw internal spinal fixation system, non-sterile ()[id number] FDA Start: 03-02-2019 Fusion, spine, lumbar, XLIF STRATOFUSE DBM 10CC FDA Start: 03-02-2019 Fusion, spine, lumbar, XLIF Bone-screw internal spinal fixation system, non-sterile ()[id number] FDA Start: 03-02-2019 Fusion, spine, lumbar, XLIF Bone-screw internal spinal fixation system, non-sterile ()[id number] FDA Start: 03-02-2019 Fusion, spine, lumbar, XLIF Bone-screw internal spinal fixation system, non-sterile ()[id number] FDA Start: 03-02-2019 Fusion, spine, lumbar, XLIF STRATOFUSE DBM 5CC FDA Start: 03-02-2019 Fusion, spine, lumbar, XLIF XLIF 3 LEVEL MAS REDUCTION FDA Start: 03-02-2019 Fusion, spine, lumbar, XLIF Spinal fusion graft kit ()[id number] FDA Start: 03-02-2019 Fusion, spine, lumbar, XLIF Spinal fusion graft kit ()[id number] FDA Start: 03-02-2019 Fusion, spine, lumbar, XLIF Metallic spinal fusion cage, non-sterile ()[id number] FDA Start: 03-02-2019 Fusion, spine, lumbar, XLIF Metallic spinal fusion cage, non-sterile ()[id number] FDA Start: 03-02-2019 Fusion, spine, lumbar, XLIF Metallic spinal fusion cage, non-sterile ()[id number] FDA Start: 03-02-2019 Fusion, spine, lumbar, XLIF [...] up as planned with Dr. Phoenix. Thanks! [facility] 08-25-2024 Note Patient is here toda y in office for a follow S/P ablation an to discuss LAAO. Patient states he is feeling fine, he has had no issues through the all of this. Patient denies cardiac complaints. Review of Systems Constitutional: Negative. [facility] 08-25-2024 Note Cardiovascular Medic ine [facility] SUBJECTIVE Chief Complaint Patient presents with Atrial Flutter Hospital Follow-up Rebeca Nicole is a 74 y.o. male here for hospital follow-up. His Bogdan accompanied him today. 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 PMHx: A.flutter s/p CTI ablation 08/21/24, HTN, HLD, PVCs HPI Patient was recently transferred from [facility] to [facility] due to suspected V-tach vs tachyarrhythmia/SVT noted [...] Neck supple. R (more content not included)... [facility] 08-22-2024 Note Cardiology Inpatient Progress Note [...] is consistent with his baseline. Right hand navy seal is stronger than the left, also unchanged [...] venous distension (JV (more content not included)... [facility] 08-22-2024 Note Hospital Medicine Discharge Summary [...] Medications These medications were sent to [facility] - [place], [place] - [address], [facility] [address] apixaban 5 mg tablet metoprolol succinate XL [...] data, exam, discussion with providers and care-team, [facility] and orders, arranging follow up, counseling of patient and/or family and documentation was 35 minutes. Signed Chevy Lugo MD [facility] Medicine 08/22/2024 10:32 AM CC: DO Laron [facility] 08-21-2024 Note Problem: Safety - Ad [...] interpreters to assist at discharge as needed [facility] 08-21-2024 Note - ANRT sv fib/flutte r - Etiology unknown - Getting EP study today [facility] 08-21-2024 Note EP studay today [facility] 08-21-2024 Note Use pantoprazole DVT prophylaxis using VTE protocols per [facility] placed on Protonix Close Monitoring of pt is ordered. N.p.o. after midnight Consult cardiology. I discussed the plan of care with the patient and nursing staff in the room and everyone appears to be in agreement [facility] 08-21-2024 Note -Weight loss is extr verna important for this patient - Diet and exercise modalities to be used [facility] 08-21-2024 Note -Blood pressure stab le - Patient denies having any prior history of high blood pressure - Will monitor very closely and if numbers continue to be high we will treat [facility] 08-21-2024 Note Hospital Medicine Daily Progress Note - 08/21/2024 1:23 PM; Room: [employer] [facility]- Admission: 08/20/2024 1:53 AM; Length of stay: 1 days THE HOSPITALIST TEAM PREFERS TO USE [employer] FOR NON-URGENT COMMUNICATION 7AM-7PM. IF I DO NOT RESPOND WITHIN 20 MINUTES OR URGENT MATTERS, PLEASE CALL THROUGH THE METER SHOP SUPERVISOR. FROM 7PM-7AM, PLEASE PAGE [phone](COVR). Code Status: Full Code Barriers to Discharge: [...] Assessment and Plan Assessment & Plan V-tach ([facility]) - ANRT sv fib/flutter - Etiology unknown [...] pantoprazole DVT prophylaxis using VTE protocols per [facility] placed on Protonix Close Monitoring of [...] Academy of Nutrition and Dietetics and the [employer]al and Parenteral [employer], meets [...] , FREET4 , CORTISOL , FEV1 , YQZ5OIK , DLCO , RVSP , HDL , LDL No results found for: [id number] , IRON , TIBC , C3 , C4 , RONI , CANCA , ASO , PSA , CEA , CA125 , CA199 , AFP , CA153 Imaging Complete Echo (TTE) w/wo Imaging Agent, Strain, 3D, Bubble Study 1 1 [facility] Heart Station [address] [place], [place] [id number] (fax) Echocardiogram-[facility] Name: REBECA NICOLE Study Date: 08/20/2024 02:24 PM B/P: 125 mmHg/96 mmHg HR: 57 bpm Date of : 1950 Location: [facility] Height: 78 in. Age: 74 year(s) Patient Room: [facility] Weight: 310 lb. Gender: Male Patient Status: InPt BSA: 2.72 m2 Indication: Paroxysmal atrial tachycardia Examination: Echocardiogram (Complete), Lumason Contrast Image Quality: Fair Patient Consent: Procedure explained to patient Exam Details Contrast: I.V. dose of Lumason Conclusions Left Ventricle: The left ventricle is normal size. Global left ventricular (more content not included)... [facility] 08-21-2024 Note 08/21/24 1159 Admission Assessment [...] Interested Does the patient have a case specialist assigned to them through their insurance? No [...] to send link and activate MyChart? Yes [facility] 08-21-2024 Note ---- Attestation signed by [...] Value Ventricular Rate 55 Atrial Rate 55 AR Interval 180 QRS DURATION 104 QT Interval 456 QTC CALCULATION(BAZETT) 436 P Fowler 41 R-Fowler 1 T Wave Fowler 34 Impression Sinus bradycardia with occasional Premature ventricular complexes Otherwise normal ECG No previous ECGs available Confirmed by Emerson GROSS, TSEPHANIE Rausch ([id number]) on 08/20/2024 9:30:52 AM No results found for: CKTOTAL , CKMB , CKMBINDEX , TROPONINI Complete Echo (TTE) w/wo Imaging Agent, Strain, 3D, Bubble Study Result Date: 08/20/2024 1 1 [facility] Heart Station [address] [place] [address] [phone] (fax) Echocardiogram-[facility] Name: REBECA NICOLE [...] RWT, MM 0. (more content not included)... [facility] 08-21-2024 Note Problem: Safety - Ad ult Goal: Free from fall injury Outcome: Progressing Flowsheets (Taken 08/21/2024 0835) Free from fall injury: Assess patient frequently for physical needs Identify cognitive and physical deficits and behaviors that affect risk of falls [place] fall precautions as indicated by assessment Educate [...] not make progress toward the following goals. [facility] 08-20-2024 Note Problem: Safety - Ad [...] exacerbated and prevent overall improvement and discharge [facility] 08-20-2024 Note Physical Therapy Physical Therapy [...] findings on his event monitor, transferred to [facility] overnight for further work-up. PT Diagnosis: Impaired activity tolerance/balance Additional time spent at end of evaluation/session educating patient on importance of continued mobility throughout the remainder of his admission. Resources including NA's, Mobility Aides/Techs. Patient Active Problem List Diagnosis V-tach ([facility]) HTN (hypertension) Morbid obesity ([facility]) GERD (gastroesophageal reflux disease) History reviewed. No [...] Level of Function Prior Function Level of Amador: Independent with ADLs and functional transfers, Independent [...] a wheelchair): N (more content not included)... [facility] 08-20-2024 Note Occupational Therapy Occupational Therapy Evaluation Patient Name: Rebeca Nicole : 1950 Today's Date: 08/20/2024 Time In: 847 Time Out: 905 Rebeca Nicole is an 74 y.o. male who came from [facility] with V-tach on his event monitor and he was sent to the ER and then trasferred to [facility]. General Subjective: friendly and cooperative Patient Active [...] cane (sc, gb, hhs, rts, sock aid, change management specialist) Home Layout: One level Home Access: Level entry Bathroom Shower/Tub: Tub/shower unit Prior Level of Function Prior Function Level of Amador: Independent with ADLs and functional transfers, Independent [...] Eating meals?: None (Independent) Total Score OT [facility]: 21 Assessment/Plan OT Assessment OT Impairments: Decreased ADL status, Decreased endurance, Decreased functional mobility OT Assessment/CYBERATHLETE Summary: (neeeds skilled OT due to weakness [...] and standing 10 minutes 08/20/24 09/03/24 -- [facility] 08-20-2024 Note -Blood pressure toda y is 157/57. - Patient denies having any prior history of high blood pressure - Will monitor very closely and if numbers continue to be high we will treat [facility] 08-20-2024 Note Use pantoprazole DVT prophylaxis using VTE protocols per [facility] placed on Protonix Close Monitoring of pt is ordered. N.p.o. after midnight Consult cardiology. I discussed the plan of care with the patient and nursing staff in the room and everyone appears to be in agreement [facility] 08-20-2024 Note -Weight loss is extr verna important for this patient - Diet and exercise modalities to be used [facility] 08-20-2024 Note -Etiology unknown - Most excludes ACS as etiology - Will obtain twelve-lead EKG, troponins, and consult cardiology - Patient is currently started on subcu heparin and monitored very closely [facility] 08-20-2024 Note Hospital Medicine History and Physical 08/20/2024 2:26 AM THE HOSPITALIST TEAM PREFERS TO USE [employer] FOR NON-URGENT COMMUNICATION 7AM-7PM. IF I DO NOT RESPOND WITHIN 20 MINUTES OR URGENT MATTERS, PLEASE CALL THROUGH THE METER SHOP SUPERVISOR. FROM 7PM-7AM, PLEASE PAGE [phone](COVR). Chief Complaint No chief complaint on file. History of Present Illness Rebeca Nicole is an 74 y.o. male who came from [facility] with V-tach on his event monitor and he was sent to the ER and then trasferred to [facility]. 74-year-old gentleman past medical history significant for morbid obesity, hypertension and GERD and of recent feeling extremely weak. He was transferred from [facility] where he was seen to [facility] after the ER physician spoke with a sales negotiator here at [facility]. Patient was called by his PCP that [...] ventricular tachycardia he is being transferred to [facility] for further investigation and treatment. Monitor the patient, he denied chest pain, denies shortness of breath, denied nausea or vomiting, denied fever or chills. Apart from being morbidly obese the recent physical findings were unremarkable. Patient is being admitted to the hospital for observation and cardiology has been consulted to investigate the causation of the tachyarrhythmia/supraventricular tachycardia. While here at [facility] patient was sinus rhythm on the monitor [...] investigation of V. tach found on his potline monitor. Bradycardia, saw the patient here he [...] be high we will treat Morbid obesity ([facility]) -Weight loss is extremely important for this patient - Diet and exercise modalities to be used GERD (gastroesophageal reflux disease) Use pantoprazole DVT prophylaxis using VTE protocols per [facility] placed on Protonix Close Monitoring of pt is ordered. N.p.o. after midnight Consult cardiology. I discussed the plan of care with the patient and nursing staff in the room and everyone appears to be in agreement VTE Prophylaxis: Heparin subcutaneous ----- Focus of this inpatient stay jay jay (more content not included)... [facility] 07-28-2024 Evaluation note Diagnosis Onset Date [...] subsequent noneactive October 06, 2024 9 :00am [facility] Work Phone: 1(508) 287-818404-02-2025 History of Present illness Narrative* Morales Ramon, [...] today utilizing a nail Nipper and electric blanchard grinder operator without incident. Patientwishes to follow up as [...] understanding. Morales Ramon DPM documented in this [facility]03-17-2025 Evaluation note* Diagnosis Onset Date Resolution Status Admit Date GERD (gastroesophageal reflu x disease) acute June 22, 2024 8:53am ALEXANDRA (obstructive sleep apnea) acute July 28, 2024 10:32am Palpitations acute July 28, 2024 10:32am [facility] Work Phone: 1(942) 164-958403-17-2025 Evaluation note* Diagnosis Onset Date Resolution Status [...] sleep apnea) acute August 28, 2024 9:16am [facility] Work Phone: 1(899) 405-857901-21-2025 History of Present illness Narrative* Morales Ramon [...] today utilizing a nail Nipper and electric blanchard grinder operator without incident. Patient will follow up as [...] understanding. Morales Ramon DPM [id number] History of Present illness Narrative* Catherine Ayoub, LINDY-SAND SIFTER - 04/10/2024 8:00 AM EST Images from the original note were not included. Wound Care Progress Note Patient: Rebeca Nicole Date of : 1950 Chief Compliant: Left leg ulceration, follow up SUBJECTIVE/HPI: Rebeca is a 73 y.o. male who presents to [facility] for evaluation of 1 [...] ms with multilevel great saphenous vein reflux. Wagon Winder vein with 4089 ms reflux time and 3.6 mm diameter noted in the proximal medial calf. General: This examination was performed in the upright position. Conclusions: RIGHT: No evidence of right common femoral vein deep vein thrombosis or significant reflux.LEFT: No evidence of deep or superficial vein thrombosis of the lower extremity. Femoropopliteal deep vein reflux. Wagon Winder vein reflux. Saphenofemoral junction and great saphenous [...] left ankle limited to breakdown of skin ([facility]) Venous insufficiency of left lower extremity [...] ankle region. 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 compliance nursing home goal: wound closure Patient verbalize ability to [...] Catherine Ayoub APRN, SHARLENE, CWS, LUIS F oHllidayt [facility]: [phone] EMILY Proctor 12/04/23 1106 EMILY Proctor 12/18/23 1020 EMILY Proctor 12/18/23 1158 EMILY Proctor 12/25/23 1016 Catherine Ayoub APRN-SHARLENE 01/03/24 1012 Catherine Ayoub APRN-SHARLENE 01/10/24 0929 Catherine Ayoub APRN-SHARLENE 01/22/24 0927 Catherine Ayoub APRN-SHARLENE 02/05/24 1005 Catherine Ayoub APRN-SHARLENE 02/19/24 0854 EMILY Proctor 02/26/24 0932 Catherine Ayoub APRN-SHARLENE 04/10/24 0913 documented in this encounterFisher-[facility]01-03-2025 Instructions* Patient Instructions* Joycelyn Skaggs [...] Wound drainage Type Description documented in this encounterFisher-Titus [facility] Center12-03-2024 Miscellaneous Notes* Telephone Encounter - Karly Canales - 03/10/2024 3:24 PM EST Returned patient VM and LM I will cancel procedure for Saturday along with postop appointments, but Icannot recommend proceeding or not regarding skin changes, but suggest he make a f/u appt with Dr. Cho unless he will see her in wound care soon. documented in this encounterFisher-Titus [facility] Center12-03-2024 Telephone encounter Note* Telephone Encounter - Karly Canales - 03/10/2024 3:24 PM EST Returned patient VM and LM I will cancel procedure for Saturday along with postop appointments, but Icannot recommend proceeding or not regarding skin changes, but suggest he make a f/u appt with Dr. Cho unless he will see her in wound care soon. [facility]11-22-2024 Miscellaneous Notes* Telephone Encounter - Karly Canales - 02/28/2024 12:22 PM EST LM for patient I would like to move his procedure time to 9:30 on 03/13/24 arriving at 9:00 and asked him to return my call. documented in this encounterFisher-Titus [facility] Center11-22-2024 Telephone encounter Note* Telephone Encounter - Karly Canales - 02/28/2024 12:22 PM EST LM for patient I would like to move his procedure time to 9:30 on 03/13/24 arriving at 9:00 and asked him to return my call. [facility] History of Present illness Narrative* Catherine Acuna Anitra, OPHTHALMIC TECHNICIAN-SAND SIFTER - 02/26/2024 8:20 AM EST Images from the original note were not included. Wound Care Progress Note Patient: Rebeca Nicole Date of : 1950 Chief Compliant: Left leg ulceration, follow up SUBJECTIVE/HPI: Rebeca is a 73 y.o. male who presents to [facility] for evaluation of 1 [...] ms with multilevel great saphenous vein reflux. Wagon Winder vein with 4089 ms reflux time and 3.6 mm diameter noted in the proximal medial calf. General: This examination was performed in the upright position. Conclusions: RIGHT: No evidence of right common femoral vein deep vein thrombosis or significant reflux.LEFT: No evidence of deep or superficial vein thrombosis of the lower extremity. Femoropopliteal deep vein reflux. Wagon Winder vein reflux. Saphenofemoral junction and great saphenous [...] Posterior;Left;Lower (Active) Wound Image 02/26/24836 Site Assessment Dry;Fragile;[place] 02/26/24836 Melissa-wound Assessment Dry;Fragile;Intact 02/26/24836 Shape no [...] of skin, unspecified whether varicose veins present ([facility]) 2. Edema of left lower leg [...] ankle region. 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 compliance nursing home goal: wound closure Patient verbalize ability to [...] APRN, SHARLENE, CWS, LUIS F [facility]: [phone] EMILY rPoctor 12/04/23 1106 EMILY Proctor 12/18/23 1020 EMILY Proctor 12/18/23 1158 EMILY Proctor 12/25/23 1016 EMILY Proctor 01/03/24 1012 EMILY Proctor 01/10/24 0929 Catherine Ayoub APRN-SHARLENE 01/22/24 0927 Catherine Ayoub APRN-SHARLENE 02/05/24 1005 Catherine Ayoub APRN-SHARLENE 02/19/24 0854 Catherine Ayoub APRN-SHARLENE 02/26/24 0932 documented in this encounterFisher-Titus [facility] Center11-20-2024 Instructions* Patient Instructions* Bianca Berger RN - [...] Wound drainage Type Description documented in this encounterFisher-Titus [facility] Center11-13-2024 History of Present illness Narrative* Catherine Ayoub, OPHTHALMIC TECHNICIAN-SAND SIFTER - 02/19/2024 8:00 AM EST Images from the original note were not included. Wound Care Progress Note Patient: Rebeca Nicole Date of : 1950 Chief Compliant: Left leg ulceration, follow up SUBJECTIVE/HPI: Rebeca is a 73 y.o. male who presents to [facility] for evaluation of 1 [...] ms with multilevel great saphenous vein reflux. Wagon Winder vein with 4089 ms reflux time and 3.6 mm diameter noted in the proximal medial calf. General: This examination was performed in the upright position. Conclusions: RIGHT: No evidence of right common femoral vein deep vein thrombosis or significant reflux.LEFT: No evidence of deep or superficial vein thrombosis of the lower extremity. Femoropopliteal deep vein reflux. Wagon Winder vein reflux. Saphenofemoral junction and great saphenous [...] left ankle limited to breakdown of skin ([facility]) Venous insufficiency of left lower extremity [...] Application 1 Application topical PRN Catherine Ayoub, OPHTHALMIC TECHNICIAN-CNP1 Application at 02/19/24 0844 Allergies Allergen Reactions [...] ankle region. 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 compliance nursing home goal: wound closure Patient verbalize ability to [...] F Morales [facility]: [phone] EMILY Proctor 12/04/23 9804 EMILY Proctor 12/18/23 1020 EMILY Proctor 12/18/23 1158 Catherine Ayoub, OPHTHALMIC TECHNICIAN-[employer] 12/25/23 1016 Catherine Acuna [place], OPHTHALMIC TECHNICIAN-[facility] 01/03/24 1012 Catherine Ayoub, OPHTHALMIC TECHNICIAN-[facility] 01/10/24 0929 Catherine Ayoub, OPHTHALMIC TECHNICIAN-[facility] 01/22/24 0927 Catherine Ayoub, OPHTHALMIC TECHNICIAN-[facility] 02/05/24 1005 Catherine Ayoub, OPHTHALMIC TECHNICIAN-[facility] 02/19/24 0854 documented in this encounterFisher-T[facility]11-13-2024 Instructions* Patient Instructions* Clare Mckeon RN - [...] Description small Serosanginous yellow documented in this encounterFisher-Titus [facility] Center11-11-2024 History of Present illness Narrative* Morales Ramon, [...] utilizing a nail nipper and electric bur floor grinder without incident. All hyperkeratotic tissue of the [...] understanding. Morales Ramon DPM documented in this encounterGeneral Leonard Wood Army Community HospitalDcaaplkmdd01-12-1754 History of Present illness Narrative* Catherine Ayoub, OPHTHALMIC TECHNICIAN-SAND SIFTER - 02/05/2024 8:00 AM EDT Images from the original note were not included. Wound Care Progress Note Patient: Rebeca Nicole Date of : 1950 Chief Compliant: Left leg ulceration, follow up SUBJECTIVE/HPI: Rebeca is a 73 y.o. male who presents to [facility] for evaluation of 1 [...] ms with multilevel great saphenous vein reflux. Wagon Winder vein with 4089 ms reflux time and 3.6 mm diameter noted in the proximal medial calf. General: This examination was performed in the upright position. Conclusions: RIGHT: No evidence of right common femoral vein deep vein thrombosis or significant reflux.LEFT: No evidence of deep or superficial vein thrombosis of the lower extremity. Femoropopliteal deep vein reflux. Wagon Winder vein reflux. Saphenofemoral junction and great saphenous [...] left ankle limited to breakdown of skin ([facility]) Venous insufficiency of left lower extremity [...] Wound Image 02/05/24815 Site Assessment Red;Moist 02/05/24815 Mleissa-wound Assessment Fragile 02/05/24815 Shape Blocked 02/05/24815 Wound [...] region. 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 Patient verbalize ability to [...] F [facility]: [phone] EMILY Proctor 12/04/23 1106 EMILY Proctor 12/18/23 1020 EMILY Proctor 12/18/23 1158 EMILY Proctor 12/25/23 1016 EMILY Proctor 01/03/24 1012 EMILY Proctor 01/10/24 0929 EMILY Proctor 01/22/24 0927 EMILY Proctor 02/05/24 1005 documented in this encounterFisher-[facility]10-30-2024 Instructions* Patient Instructions* Clare Mckeon RN - [...] STEP 6: Secure with double layer tubi navy seal Moisturize all dry and intact skin with [...] Description small Serosanginous yellow documented in this encounterFisher-Titus Medical Center10-28-2024 History of Present illness Narrative* Lan Cho MD - 02/03/2024 10:00 AM EDT Images from the original note were not included. [facility] [address] [address] Subjective: Patient ID: Rebeca Nicole is a [...] receiving carethrough the wound care clinic in [place]. He tried Unna boots twice with no [...] left ankle limited to breakdown of skin (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 The patient had a venous insufficiency scan which showed multilevel reflux of the left great saphenous vein, the left popliteal vein, and a sheet metal helper vein in the left calf. I have reviewed testing with the patient and believe he is a good candidate for RFA ablation of theleft great saphenous vein. I explained to the patient that the purpose of the procedure is to help his left leg venous ulcer to heal and to prevent future ulcers from occurring. I explained he does have reflux in a sheet metal helper vein in the left calf which may [...] understanding. Lan Cho MD documented in this encounterFisher-[facility]10-16-2024 History of Present illness Narrative* Catherine Ayoub, OPHTHALMIC TECHNICIAN-SAND SIFTER - 01/22/2024 8:00 AM EDT Images from the original note were not included. Wound Care Progress Note Patient: Rebeca Nicole Date of : 1950 Chief Compliant: Left leg ulceration, follow up SUBJECTIVE/HPI: Rebeca is a 73 y.o. male who presents to [facility] for evaluation of 1 [...] ms with multilevel great saphenous vein reflux. Wagon Winder vein with 4089 ms reflux time and 3.6 mm diameter noted in the proximal medial calf. General: This examination was performed in the upright position. Conclusions: RIGHT: No evidence of right common femoral vein deep vein thrombosis or significant reflux.LEFT: No evidence of deep or superficial vein thrombosis of the lower extremity. Femoropopliteal deep vein reflux. Wagon Winder vein reflux. Saphenofemoral junction and great saphenous [...] left ankle limited to breakdown of skin ([facility]) Past Medical History: Diagnosis Date Arthritis Falling [...] region. 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 Patient verbalize ability to [...] electronic or other health record - EMILY PRCOTOR 01/22/24 8:34 AM Catherine Ayoub APRN, SHARLENE, CWS, LUIS F [facility]: [phone] EMILY Proctor 12/04/23 1106 EMILY Proctor 12/18/23 1020 EMILY Proctor 12/18/23 1158 EMILY Proctor 12/25/23 1016 EMILY Proctor 01/03/24 1012 EMILY Proctor 01/10/24 0929 EMILY Proctor 01/22/24 0927 documented in this encounterFort Hamilton Hospitaltokia.lt [id number] Instructions* Patient Instructions* Lamar Bee RN - [...] STEP 6: Secure with double layer tubi navy seal Moisturize all dry and intact skin with [...] Description small Serosanginous yellow documented in this encounterFisher-[facility] Center10-09-2024 History of Present illness Narrative* EMILY Parham - 01/15/2024 8:00 AM EDT Images from the original note were not included. Wound Care Progress Note Patient: Rebeca Nicole Date of : 1950 Chief Compliant: Left leg ulceration, follow up SUBJECTIVE/HPI: Rebeca is a 73 y.o. male who presents to [facility] for evaluation of 1 [...] ms with multilevel great saphenous vein reflux. Wagon Winder vein with 4089 ms reflux time and 3.6 mm diameter noted in the proximal medial calf. General: This examination was performed in the upright position. Conclusions: RIGHT: No evidence of right common femoral vein deep vein thrombosis or significant reflux.LEFT: No evidence of deep or superficial vein thrombosis of the lower extremity. Femoropopliteal deep vein reflux. Wagon Winder vein reflux. Saphenofemoral junction and great saphenous [...] left ankle limited to breakdown of skin ([facility]) Past Medical History: Diagnosis Date Arthritis Falling [...] region. 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 Patient verbalize ability to [...] EMILY PARHAM 01/15/24 8:30 AM [facility] [place] [facility] [phone] EMILY Parham 01/15/24 0903 documented in this encounterRockingham Memorial HospitalCabochon Aesthetics10-09-2024 Instructions* Patient Instructions* Bianca Berger RN - [...] STEP 6: Secure with double layer tubi navy seal Moisturize all dry and intact skin with [...] Description small Serosanginous yellow documented in this encounterFisher-Titus Medical Center10-04-2024 History of Present illness Narrative* Catherine Ayoub, OPHTHALMIC TECHNICIAN-SAND SIFTER - 01/10/2024 8:20 AM EDT Images from the original note were not included. Wound Care Progress Note Patient: Rebeca Nicole Date of : 1950 Chief Compliant: Left leg ulceration, follow up SUBJECTIVE/HPI: Rebeca is a 73 y.o. male who presents to [facility] for evaluation of 1 [...] ms with multilevel great saphenous vein reflux. Wagon Winder vein with 4089 ms reflux time and 3.6 mm diameter noted in the proximal medial calf. General: This examination was performed in the upright position. Conclusions: RIGHT: No evidence of right common femoral vein deep vein thrombosis or significant reflux.LEFT: No evidence of deep or superficial vein thrombosis of the lower extremity. Femoropopliteal deep vein reflux. Wagon Winder vein reflux. Saphenofemoral junction and great saphenous [...] left ankle limited to breakdown of skin ([facility]) Past Medical History: Diagnosis Date Arthritis Falling [...] region. 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 Patient verbalize ability to [...] APRN-SHARLENE 01/10/24 9:09 AM Catherine Ayoub APRN, SAND SIFTER, CWS, LUIS F [facility]: [phone] Catherine Acuna LINDY Ayoub-SHARLENE 12/04/23 1106 Catherine Acuna EMILY Ayoub 12/18/23 1020 Catherine Acuna EMILY Ayoub 12/18/23 1158 Catherine Acuna EMILY Ayoub 12/25/23 1016 Catherine Acuna EMILY Ayoub 01/03/24 1012 Catherine Acuna EMILY Ayoub 01/10/24 0929 documented in this encounterFisher-Titus [facility] Center10-04-2024 Instructions* Patient Instructions* Joycelyn Skaggs RN - [...] STEP 6: Secure with double layer tubi navy seal ACTIVITY: Avoid direct pressure to wound(s) at [...] Description small Serosanginous yellow documented in this encounterFisher-Titus Medical Center09-27-2024 History of Present illness Narrative* EMILY Proctor - 01/03/2024 9:30 AM EDT Images from the original note were not included. Wound Care Progress Note Patient: Rebeca Nicole Date of : 1950 Chief Compliant: Left leg ulceration, follow up SUBJECTIVE/HPI: Rebeca is a 73 y.o. male who presents to [facility] for evaluation of 2 [...] ms with multilevel great saphenous vein reflux. Wagon Winder vein with 4089 ms reflux time and 3.6 mm diameter noted in the proximal medial calf. General: This examination was performed in the upright position. Conclusions: RIGHT: No evidence of right common femoral vein deep vein thrombosis or significant reflux.LEFT: No evidence of deep or superficial vein thrombosis of the lower extremity. Femoropopliteal deep vein reflux. Wagon Winder vein reflux. Saphenofemoral junction and great saphenous [...] left ankle limited to breakdown of skin ([facility]) Past Medical History: Diagnosis Date Arthritis [...] region. 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 Patient verbalize ability to [...] or other health record - CATHERINE AYOUB APRN-SAND SIFTER 01/03/24 9:33 AM Catherine Ayoub APRN, SHARLENE, CWS, LUIS F [facility]: [phone] EMILY Proctor 12/04/23 1106 EMILY Proctor 12/18/23 1020 EMILY Proctor 12/18/23 1158 EMILY Proctor 12/25/23 1016 EMILY Proctor 01/03/24 1012 documented in this encounterFisher-Titus [facility] Center09-27-2024 Instructions* Patient Instructions* Clare Mckeon RN - [...] STEP 6: Secure with double layer tubi navy seal ACTIVITY: Avoid direct pressure to wound(s) at [...] Description small Serosanginous yellow documented in this encounterFisher-Titus Medical Center09-20-2024 History of Present illness Narrative* EMILY Proctor - 12/27/2023 8:00 AM EDT Patient here for UNNA boot application - EMILY PROCTOR 12/31/23 12:03 PM EMILY Proctor 12/31/23 1204 documented in this encounterFisher-Titus Medical Center09-20-2024 Instructions* Patient Instructions* Bianca Berger RN - [...] increases the swelling. When you should call [facility]. ([phone] or ) If your wrap(s) slide down [...] Description small Serosanginous yellow documented in this encounterFisher-Titus Medical Center09-18-2024 History of Present illness Narrative* Catherine Ayoub, OPHTHALMIC TECHNICIAN-SAND SIFTER - 12/25/2023 9:00 AM EDT Images from the original note were not included. Wound Care Progress Note Patient: Rebeca Nicole Date of : 1950 Chief Compliant:Left leg ulceration, follow up SUBJECTIVE/HPI: Rebeca is a 73 y.o. male who presents to [facility] for evaluation of 2 [...] left ankle limited to breakdown of skin ([facility]) Past Medical History: Diagnosis Date Arthritis Falling [...] region. 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 Patient verbalize ability to [...] F [facility]: [phone] EMILY Proctor 12/04/23 1106 EMILY Proctor 12/18/23 1020 EMILY Proctor 12/18/23 1158 EMILY Proctor 12/25/23 1016 documented in this encounterRockingham Memorial HospitalCabochon Aesthetics09-18-2024 Instructions* Patient Instructions* Bianca Berger RN - 12/25/2023 9:00 AM EDT Venous insufficiency testing ordered 12-18-23 Wound Management Treatment Plan Wound Location(s): left proximal posterior calf and left distal posterior calf Applied in clinic today, 12/25/23: Adaptic to cover wound bed Calcium alginate applied to wound bed Secure with roll gauze Tubi navy seal stocking applied Remove dressing for venous testing on 12/26/23. After your testing, apply ABD pad to wound bed and cover with roll gauze and tubi navy seal stocking. Return to clinic on Saturday12/27/23 for [...] increases the swelling. When you should call [facility]. ([phone] or ) If your wrap(s) slide down [...] Description small Serosanginous yellow documented in this encounterFisher-Titus Medical Center09-11-2024 History of Present illness Narrative* Catherine Ayoub, OPHTHALMIC TECHNICIAN-SAND SIFTER - 12/18/2023 9:00 AM EDT Images from the original note were not included. Wound Care Progress Note Patient: Rebeca Nicole Date of : 1950 Chief Compliant:Left leg ulceration, follow up SUBJECTIVE/HPI: Rebeca is a 73 y.o. male who presents to [facility] for evaluation of 2 [...] left ankle limited to breakdown of skin ([facility]) Past Medical History: Diagnosis Date Arthritis Falling [...] region. 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 When you should call [facility]. ([phone] or ) If your wrap(s) slide down [...] Description small Serosanginous yellow documented in this encounterFisher-Titus [facility] Center08-28-2024 History of Present illness Narrative* Catherine Acuna [place], OPHTHALMIC TECHNICIAN-SAND SIFTER - 12/04/2023 9:00 AM EDT Images from the original note were not included. Wound Care Progress Note Patient: Rebeca Nicole Date of : 1950 Chief Compliant:Left leg ulceration SUBJECTIVE/HPI: Rebeca is a 73 y.o. male who presents to [facility] for evaluation of 2 [...] left ankle limited to breakdown of skin ([facility]) Past Medical History: Diagnosis Date Arthritis [...] Distal;Posterior;Left (Active) Wound Image 12/04/23899 Site Assessment [place];Red 12/04/23899 Melissa-wound Assessment Blanchable erythema 12/04/23899 Wound [...] region. 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 support associate gentamicin ointment at [facility] pharamcy Length Width Depth Wound drainage Type Description small Serosanginous yellow documented in this encounterFort Hamilton HospitalProlong Pharmaceuticals [facility] [id number] Evaluation note* Encounter Date Diagnosis Assessment Notes Treatment Notes Treatment Clinical Notes Oct, GERD (gastroesophageal reflux disease) (ICD-10 - K21.9) [employer] Other 04-12-2023 Evaluation note* Encounter Date Diagnosis [...] test since he would still be contagious [employer] Other 02-20-2023 Evaluation note* Encounter Date Diagnosis [...] reviewed and amended by provider signed below. [employer] Other 02-01-2023 Procedure noteFirSelect Medical [facility]09-20-2022 Evaluation note* Encounter Date Diagnosis Assessment Notes Treatment Notes Treatment Clinical Notes Dec, Family history of colon cancer (ICD-10 - Z80.0) [place] [employer] Other Evsvlrvngw noteNo InformationNortBrooke Glen Behavioral Hospital [employer] Other Evaluation noteNo assessment information available [facility] Work Phone: Evaluation note* Diagnosis Onset Date Resolution Status Benign prostatic hyperplasia with lower urinary tract symptoms acute GERD (gastroesophageal reflux disease) acute Lumbar spondylosis acute ALEXANDRA (obstructive sleep apnea) acute Screening PSA (prostate specific antigen) acute Medicare annual wellness visit, subsequent noneactive [facility] Work Phone: Evyxkhcrvc note* Diagnosis Corns and callosities- Primary Onychomycosis Dermatophytosis of nail Right foot pain Pain in soft tissues of limb [facility] Diagnosis Venous stasis ulcer of left ankle limited to breakdown of skin with varicose veins (CMS-HCC)- Primary documented in this encounter [facility]* Diagnosis Corns and callosities- Primary Right foot pain Pain in soft tissues of limb Onychomycosis Dermatophytosis of nail documented [facility]* Diagnosis Venous stasis ulcer of left ankle limited to breakdown of skin with varicose veins (CMS-HCC)- Primary Venous stasis ulcer of left ankle limited to breakdown of skin, unspecified whether varicose veins present (CMS-HCC) documented in this encounter [facility]* Diagnosis Traumatic open wound of left lower leg with delayed healing- Primary Edema of left lower leg Venous stasis ulcer of left ankle limited to breakdown of skin, unspecified whether varicose veins present (CMS-HCC) documented in this encounter [facility]* Diagnosis Venous stasis ulcer of left ankle limited to breakdown of skin, unspecified whether varicose veins present (CMS-HCC)- Primary [facility] this encounter [facility]* Diagnosis Venous stasis ulcer of left ankle limited to breakdown of skin with varicose veins (CMS-HCC)- Primary [facility] Diagnosis Venous stasis ulcer of left ankle limited to breakdown of skin with varicose veins (CMS-HCC)- Primary [facility] Diagnosis Venous stasis ulcer of left ankle limited to breakdown of skin without varicose veins (CMS-HCC)- Primary Edema of left lower leg documented in this encounter [facility]* Diagnosis Venous stasis ulcer of left ankle limited to breakdown of skin, unspecified whether varicose veins present (CMS-HCC)- Primary Venous stasis ulcer of left ankle limited to breakdown of skin without varicose veins (CMS-HCC) documented in this encounter [facility]* Diagnosis Venous stasis ulcer of left ankle limited to breakdown of skin without varicose veins (CMS-HCC)- Primary [facility]* Diagnosis Venous insufficiency of left lower extremity- Primary Venous stasis ulcer of left ankle limited to breakdown of skin with varicose veins (CMS-HCC) documented in this encounter [facility]* Diagnosis Venous stasis ulcer of left ankle limited to breakdown of skin with varicose veins (CMS-HCC)- Primary Edema of left lower leg documented in this encounter [facility]* Diagnosis Venous stasis ulcer of left ankle limited to breakdown of skin with varicose veins (CMS-HCC)- Primary Venous insufficiency of left lower extremity Varicose veins of left lower extremity with pain Phlebitis Phlebitis and thrombophlebitis of unspecified site documented in this encounter [facility]* Diagnosis Venous stasis ulcer of left ankle limited to breakdown of skin with varicose veins (CMS-HCC) documented in this encounter [facility]* Diagnosis Venous stasis ulcer of left ankle limited to breakdown of skin with varicose veins (CMS-HCC)- Primary Rash due to allergy documented in this encounter [facility]* Diagnosis Venous stasis ulcer of left ankle limited to breakdown of skin, unspecified whether varicose veins present (CMS-HCC)- Primary Edema of left lower leg documented in this encounter [facility]* Diagnosis Pre-operative anxiety- Primary Venous stasis ulcer of left ankle limited to breakdown of skin with varicose veins (CMS-HCC) documented in this encounter [facility]* Diagnosis Corns and callosities- Primary Onychomycosis Dermatophytosis of nail Onychodystrophy Other specified disease of nail Right foot pain Pain in soft tissues of limb Left foot pain Pain in soft tissues of limb documented in this encounter [facility] Author Reji Roy [facility] May 09, 2022 10:32am Note Date/Time May 09, 2022 1 0:32am [facility] [address] [place] [address] Gastroenterology H&P Signed Patient: Rebeca Nicole MR#: [id number] : 1950 Acct:[id number] Age/Sex: 71 / M Adm Date: 3 Loc: Room: Type: [facility] Attending Dr: Reji Roy MD [...] signed by Reji Roy MD> 05/09/22 1032 [facility] Work Phone: History general Narrative - [...] Surgical History EGD 2006 Hospitalization History see [facility] Other History general Narrative - Reported* Type [...] Surgical History colonoscopy 05/2022 Hospitalization History see [facility] Other Hospital Discharge instructions Additional Instructions DISCHARGE [...] screening -Follow up with PCP. -Office number [phone].[facility] Work Phone: InstructionsNot on filedocumented in this encounter [facility] filedocumented in this encounter [facility]ructionsNot on filedocumented in this encounter [facility]ructionsNot on filedocumented in this encounter [facility]ructionsNot on filedocumented in this encounter [facility] SystemInstructionsNot on filedocumented in this encounter [facility] SystemReason for referral (narrative)No reason for referral [facility] Work Phone: Reason for visit Narrative* Consultation (Routine) - Pending Review Specialty Diagnoses / Procedures Referred By Xiomy fong Referred To Contact Wound Care Diagnoses Venous stasis ulcer of left ankle limited to breakdown of skin, unspecified whether varicose veins present ([facility] Morales Ramon, DPM [address] [place] [address] [facility] W[facility] Care Op [address] [place] [address] Referral ID Status Reason Start Date Expiration Date Visits Requested Visits Authorized [id number] Pending Review Specialty Services Required 11/27/2023 11/26/2024 1 1 [facility] Summary Purpose Family History Relationship Condition Age [...] Amb Documentation August 28, 2024 8:00a m [facility] f/u August 28, 2024 9:16a m [...] Amb Documentation August 28, 2024 8:00a m [facility] f/u August 28, 2024 9:16a m Wellness [...] of skin, unspecified whether varicose veins present ([facility] Procedures Xeroform 4x4 Catherine Ayoub, OPHTHALMIC TECHNICIAN-[facility] [address] [place] [address] Referral ID Status Reason Start Date Expiration Date V isits Requested Visits Authorized [id number] Pending Review 01/03/2024 01/02/2025 1 1 Specialty Diagnoses / Procedures Referred By Xiomy t Referred To Contact Vascular Surgery Diagnoses Venous stasis ulcer of left ankle limited to breakdown of skin with varicose veins ([facility] Catherine Ayoub, OPHTHALMIC TECHNICIAN-[facility] [address] [place] [address] Lan Cho MD [address] [place] [address] [place] [id number] Referral ID Status Reason Start Date Expiration Date Visits Requested Visits Authorized [id number] Pending Review Specialty Services Required 01/03/2024 01/02/2025 1 1 Additional Source Comments (unrecognized sect ion and content) No Status Records FoundNo Status Records FoundNo Status Records FoundNo Status Records FoundNo Status Records FoundNo Status Records FoundNo Status Records Found INFORMATION SOURCE (unrecogn ized section and content) DATE CREATED AUTHOR 07/12/2018 [facility] DATE CREATED AUTHOR AUTHOR'S ORGANIZ ATION 05/16/2022 [facility] DATE CREATED AUTHOR AUTHOR'S ORGANIZ ATION 06/05/2022 [facility] DATE CREATED AUTHOR AUTHOR'S ORGANIZ ATION 02/03/2024 [facility] DATE CREATED AUTHOR AUTHOR'S ORGANIZ ATION 04/17/2024 [facility] DATE CREATED AUTHOR AUTHOR'S ORGANIZ ATION 07/11/[address] [facility] dical Specialists [facility] DATE CREATED AUTHOR AUTHOR'S ORGANIZ ATION 09/22/2024 [facility] REASON FOR VISIT (unrecogniz ed section and content) Reason Comments Dressing Change Specialty Diagnoses / Procedures Referred By Xiomy Referred To Contact Wound Care Diagnoses Venous stasis ulcer of left ankle limited to breakdown of skin, unspecified whether varicose veins present ([facility]) Morales Ramon DPM [address] [place] [address] [facility] Wound Care Op [address] [place] [address] Referral ID Status Reason Start Date Expiration Date Visits Requested Visits Authorized [id number] Pending Review Specialty Services Required 11/27/2023 11/26/2024 [...] of skin, unspecified whether varicose veins present ([facility] Morales Ramon DPM [address] [place] [address] Phone: tel: fax: [facility] [address] [place] [address] Phone: tel: fax: Referral ID Status Reason Start Date Expiration Date Visits Requested Visits Authorized [id number] Pending Review Specialty Services Required 11/27/2023 11/26/2024 1 1 Reason Comments Foot Callouses Established pt prese nts today for callus debridement. SS: 14 Reason Comments Wound Check Reason Comments Wound Check Specialty Diagnoses / Procedures Referred By Contac t Referred To Contact Wound Care Diagnoses Venous stasis ulcer of left ankle limited to breakdown of skin, unspecified whether varicose veins present ([facility] Morales Ramon, DPM [address] [place] [address] Phone: tel: fax: [facility] [address] [place] [address] Phone: tel: fax: Referral ID Status Reason Start Date Expiration Date Visits Requested Visits Authorized [id number] Pending Review Specialty Services Required 11/27/2023 11/26/2024 1 1 Reason Comments Varicose Veins New patient-testing done- goes to wound care for wound on left ankle Specialty Diagnoses / Procedures Referred By Contac t Referred To Contact Vascular Surgery Diagnoses Venous stasis ulcer of left ankle limited to breakdown of skin with varicose veins ([facility] Catherine Ayoub, OPHTHALMIC TECHNICIAN-[facility] [address] [place] [address] Phone: tel: fax: [place] [address] [place] [address] [place] [address] Phone: tel:[phone] fax: Referral ID Status Reason Start Date Expiration Date Visits Requested Visits Authorized [id number] Pending Review Specialty Services Required 01/03/2024 01/02/2025 [...] Larry DO Primary Care Provider Active Reji oRy MD Attending Provider Active Team Status: Active Member Role Status Dates Gutierrez Larry DO Primary Care Provider Active Team Status: Inactive Member Role Status Dates Gutierrez Ball , DO Primary Care Provide r, Attending Provider Active Start: September 16, 2023 End: September 16, 2023 Professional Wrestler Relationship Specialty Start Date End Date Gutierrez Larry MD [address] [place] [facility] [place] [address] PCP - General Internal Medicine 02/18/23 Professional Wrestler Relationship Specialty Start Date End Date Gutierrez Larry MD [address] [place] [facility] [address] PCP - General Internal Medicine 02/18/23 Professional Wrestler Relationship Specialty Start Date End Date Gutierrez Larry DO [address] [place] [address] PCP - General Internal Medicine 07/26/20 Professional Wrestler Relationship Specialty Start Date End Date Gutierrez Larry MD [address] [place] [facility] [address] PCP - General Internal Medicine 02/18/23 Professional Wrestler Relationship Specialty Start Date End Date Gutierrez Larry DO [address] [place] [address] PCP - General Internal Medicine 07/26/20 Professional Wrestler Relationship Specialty Start Date End Date Gutierrez Larry DO [address] [place] [address] PCP - General Internal Medicine 07/26/20 Professional Wrestler Relationship Specialty Start Date End Date Gutierrez Larry DO [address] [place] [address] PCP - General Internal Medicine 07/26/20 Professional Wrestler Relationship Specialty Start Date End Date Gutierrez Larry DO [address] [place] [address] PCP - General Internal Medicine 07/26/20 Professional Wrestler Relationship Specialty Start Date End Date Gutierrez Larry DO [address] [place] [address] PCP - General Internal Medicine 07/26/20 Professional Wrestler Relationship Specialty Start Date End Date Gutierrez Larry DO [address] [place] [address] PCP - General Internal Medicine 07/26/20 Professional Wrestler Relationship Specialty Start Date End Date Gutierrez Larry DO [address] [place] [address] PCP - General Internal Medicine 07/26/20 Professional Wrestler Relationship Specialty Start Date End Date Gutierrez Larry DO [address] [place] [address] PCP - General Internal Medicine 07/26/20 Professional Wrestler Relationship Specialty Start Date End Date Gutierrez Larry DO [address] [place] [address] PCP - General Internal Medicine 07/26/20 Professional Wrestler Relationship Specialty Start Date End Date Gutierrez Larry DO [address] [place] [address] PCP - General Internal Medicine 07/26/20 Professional Wrestler Relationship Specialty Start Date End Date Gutierrez Larry DO [address] [place] [address] PCP - General Internal Medicine 07/26/20 Team Status: Inactive Member Role Status Dates Gutierrez Larry DO Primary Care Provider Active Start: June 22, 2024 End: June 22, 2024 Ottoniel Flores APRN Attending Provider Active Start: June 22, 2024 End: June 22, 2024 Professional Wrestler Relationship Specialty Start Date End Date Gutierrez Larry MD [address] [facility] [place] [address] PCP - General Internal Medicine 02/18/23 Team [...] BE BASED ON THE PRIMARY CLINICAL RECORDS. [facility]. provides no warranty or guarantee of the accuracy or completeness of information in this document.
[2024-10-08 07:30] LABS: Hematocrit 39.3 % (42.0-54.0); Hemoglobin 12.8 g/dL (14.0-18.0); Immature Granulocytes Abs Auto 0.02 10^3/uL (0.00-0.03); Immature Granulocytes Pct Auto 0.3 % (0.0-0.5); Lymphocytes Absolute Auto 1.6 10^3/uL (1.2-3.8); Mean Corpuscular HGB Conc 32.6 g/dL (29.9-35.2); Mean Corpuscular Hemoglobin 30.0 pg (25.9-34.0); Mean Corpuscular Volume 92.3 fL (80.0-94.0); Platelet Count 226 10^3/uL (150-450); Red Blood Count 4.26 10^6/uL (4.70-6.10); White Blood Count 7.3 10^3/uL (4.0-11.0)
[2024-10-08 07:48] LABS: Alanine Aminotransferase 26 U/L (16-63); Albumin Globulin Ratio 0.8; Albumin Level 3.2 g/dL (3.4-5.0); Alkaline Phosphatase 70 U/L (46-116); Anion Gap 12.1; Aspartate Amino Transferase 15 U/L (15-37); Blood Urea Nitrogen 18.0 mg/dL (7.0-18.0); Calcium 8.9 mg/dL (8.5-10.1); Carbon Dioxide 29.9 mmol/L (21.0-32.0); Chloride 106 mmol/L (98-107); Cholesterol 219 mg/dL (<=200); Estimated GFR (African America >60 (>=60 mL/min/1.73m^2); Estimated GFR (Non-African Ame >60 (>=60 mL/min/1.73m^2); Globulin 4.0 g/dL; Glucose 105 mg/dL (74-106); HDL Cholesterol 58 mg/dL (40-60); Potassium 4.0 mmol/L (3.5-5.1); Sodium 144 mmol/L (136-145); Total Protein 7.2 g/dL (6.4-8.2); Triglycerides 171 mg/dL (<=150); VLDL CHOLESTEROL 34.2 mg/dL
== END 2024-10-08 06:37 | disposition home or self-care (01) ==
LOC: LAB 06:38
PROVIDERS: PCP Internal Medicine; Visit Provider Internal Medicine
DX: E78.00 Pure hypercholesterolemia, unspecified (principal); I10 Essential (primary) hypertension; I48.3 Typical atrial flutter; Z79.899 Other long term (current) drug therapy; Z12.5 Encounter for screening for malignant neoplasm of prostate; D64.9 Anemia, unspecified
CPT/HCPCS: 36415; 80053; 80061; 85025; G0103

== ENCOUNTER 2025-02-02 08:39 | Outpatient (OUT) | payer MEDICARE, SELFPAY ==
--- OUTSIDE RECORDS SUMMARY | 2025-02-02 08:45 | XMS_ITS | Clinical Summary ---
Author Organization [facility] Address [address] [place] [address] Care Team Providers Care Manager Winter Name Role Phone Gutierrez Morton DO Primary Care Provider [phone] Allergies Active AllergyReactionsCriticalityNoted DateComments Sulfamethoxazole-FhtkgpknmxzlXpqv96/26/2019 Rash AjsisjdccvrSavfw58/26/2019 Hives Medications No known medications Social History Tobacco UseTypesPacks/DayYears UsedDateSmoking Tobacco: Never AssessedArea Deprivation IndexAnswerDate RecordedNational Score (1-100), lower number is lower riskNot on file03/16/2020State Score (1-10), lower number is lower riskNot on file03/16/2020Data from: https://www.neighborhoodatlas.medicine.[facility].edu/. Last address used for calculationNot on file03/16/2020Sex and Gender Information ValueDate RecordedSex Assigned at BirthNot on fileLegal BzmLtqv37/02/2012 9:54 AM ESTGender IdentityNot on fileSexual OrientationNot on file Plan of Treatment Health MaintenanceDue DateLast DoneCommentsAnxiety Wiccswsrq56/02/1969Depression Qwzwlxwgj34/02/1969Hepatitis C Gcxudavyo18/02/1969DTaP,Tdap,Td Vaccine (1 - Tdap)1969Lipid Knyufkqjv60/02/1986CT Xhqppbszyyfj65/02/1996Cologuard (FIT-DNA)07/09/19952937Muueizrrkcy36/02/1996Colorectal Cancer Jvgohvksj66/02/1996 Diabetes Skypsorcw07/02/1996Fecal Occult Blood07/09/19951941Vludpzltvnpef10/02/1996 Pneumococcal Vaccine: 50+ (1 of 1 - PCV)2000Shingrix Vaccine (1 of 2) 2000Advance Directive Gtjdbkabyb62/01/2025ovid-19 Vaccine (1 - 2024- season)2024Influenza Vaccine (#1)2024RSV Vaccine (1 - 1-dose 75+ series)2025 Insurance * Guarantor: Cain Kendall TypeRelation to PatientDate of BirthPhone Billing AddressPersonal/JqwgkyGtyl67/02/1951 [address] [place] [address] Care Teams Team MemberRelationshipSpecialtyStart DateEnd Date Gutierrez Morton DO [address] [place] [address] PCP - GeneralInternal Medicine06/28/18
--- OUTSIDE RECORDS SUMMARY | 2025-02-02 08:45 | XMS_ITS | Encounter Summary ---
Author Organization [facility] Address [address] [place] [address] Care Team Providers Care Cloth Neutralizer Name Role Phone Gutierrez Morton DO Primary Care Provider [phone] Encounter Details DateTypeDepartmentCare Team (Latest Contact Info)Glkriyzcplb55/24/2025Travel Social History Tobacco UseTypesPacks/DayYears UsedDateSmoking Tobacco: FormerCigarettes Smokeless Tobacco: NeverAlcohol UseStandard Drinks/WeekCommentsNot Currently0 (1 standard drink = 0.6 oz pure alcohol)[facility] UtilitiesAnswerDate RecordedIn the past 12 months has the electric, gas, oil, or water company threatened to shut off services in your home?No08/20/2024Humiliation, Afraid, Rape, and Kick questionnaireAnswerDate RecordedWithin the last year, have you been afraid of your partner or ex-partner?No08/20/2024Emotionally AbusedNot on file08/20/2024 Physically AbusedNot on file08/20/2024Sexually AbusedNot on file08/20/2024 Overall Financial Resource Strain (CARDIA)AnswerDate RecordedHow hard is it for you to pay for the very basics like food, housing, medical care, and heating?Not hard at all08/20/2024TransportationAnswerDate RecordedIn the past 12 months, has lack of transportation kept you from medical appointments or from getting medications?No08/20/2024Lack of Transportation (Non-Medical)Not on file 08/20/2024Housing Stability Vital SignAnswerDate RecordedIn the last 12 months, was there a time when you were not able to pay the mortgage or rent on time?No 08/20/2024Number of Times Moved in the Last YearNot on file08/20/2024t any time in the past 12 months, were you homeless or living in a mcfp (including now)? No08/20/2024Hunger Vital SignAnswerDate RecordedWithin the past 12 months, you worried that your food would run out before you got the money to buymore.Never true08/20/2024Ran Out of Food in the Last YearNot on file08/20/2024Sex and Gender InformationValueDate RecordedSex Assigned at GsvopLfnt30/15/2025 9:17 AM EDTLegal GboVdmw1406/29/2022 8:54 AM EDTGender BnlbuchdVtrv13/15/2025 9:17 AM EDT Sexual OrientationDon't know08/20/2024 9:17 AM EDTdocumented as of this encounter Plan of Treatment DateTypeDepartmentCare Team (Latest Contact Info)Mqoyucujwym46/28/2025 9:15 AM EDTOffice Visit [facility] [address] [facility] [place] [phone] Magdy Phoenix MD [address] [place] [address] 02/11/2025 12:00 PM ESTHospital Encounter [facility] [address] [place] [address] Magdy Phoenix MD [address] [place] [phone] Paroxysmal atrial fibrillation (CMS/HCC)02/11/2025 12:00 PM EST - 02/11/2025 3:00 PM ESTSurgery [facility] [address] [facility] [place] [phone] Magdy Phoenix MD [address] [place] [address] Ablation a-fib w/ pvi [[id number] (CPT??)]02/11/2025 12:00 PM ESTAppointment [facility] [address] [place] [address] documented as of this encounter Visit Diagnoses Not on filedocumented in this encounter Care Teams Team MemberRelationshipSpecialtyStart DateEnd Date Gutierrez Morton DO [address] [place] [address] PCP - GeneralInternal Medicine08/20/24documented as of this encounter
--- OUTSIDE RECORDS SUMMARY | 2025-02-02 08:45 | XMS_ITS | Clinical Summary ---
Author Organization [facility] Address [id number] [place] [address] Care Team Providers Care Diesel Tractor Engine Mechanic Name Role Phone Gutierrez Morton Primary Care Provider [phone] Allergies Active AllergyReactionsCriticalityNoted CkivUvuifdpxFtphpspzfzzBuavg10/26/2019 Hives Latex, Natural ElkiazNxomCkj70/13/2024Sulfamethoxazole-TrimethoprimRashLow 07/01/2018 Rash Medications MedicationSigDispense QuantityRefillsLast FilledStart DateEnd DateStatus melatonin 5 mg tablet,chewable Chew and swallow.Active omeprazole (PriLOSEC) 10 mg capsule Take 1 capsule (10 mg total) by mouth every morning before breakfast.Active Active Problems ProblemNoted DateDiagnosed DateVenous insufficiency of left lower extremity 02/03/2024enign prostatic hyperplasia with lower urinary tract symptoms 12/04/2023GERD (gastroesophageal reflux disease)12/04/2023Lumbar spondylosis 12/04/20233342Sbxrbac36/28/2024OSA (obstructive sleep apnea)12/04/2023Venous stasis ulcer of left ankle limited to breakdown of skin12/04/2023Status post total hip replacement, fnsuemcam12/20/2021tatus post total knee replacement using cement, upeiinxjn03/20/2021Foot drop, right07/26/2020Foot drop, left07/26/2020soas tendonitis of left side07/26/2020 Social History Tobacco UseTypesPacks/DayYears UsedDateSmoking Tobacco: FormerSmokeless Tobacco: Never Tobacco Cessation:Counseling Given: Not Answered Alcohol UseStandard Drinks/WeekCommentsNever0 (1 standard drink = 0.6 oz pure alcohol)ChildcareAnswerDate TfsiziqlRnvtvkhkkClegmbz03/06/2019EmploymentAnswer Date AiwnvezeHuklnqiuwvIdhfcnz17/06/2019Hunger ScreeningAnswerDate Recorded Within the past 12 months we worried whether our food would run out before we got money to buy more.Never True04/10/2024Within the past 12 months the food we bought just didn't last and we didn't have money to get more.Never True 04/10/2024Purpose - LifeAnswerDate RecordedPurpose and direction in lifeUnknown 05/19/2020ex and Gender InformationValueDate RecordedSex Assigned at BirthNot on fileLegal AjuHorw9511/11/2014 12:05 PM EDTGender IdentityNot on fileSexual OrientationNot on file Last Filed Vital Signs Vital SignReadingTime TakenCommentsBlood Wcufqbnj738/9404/10/2024 8:10 AM EST Magyg401604/10/2024 8:10 AM RAHAqgreamlwbj60.2 ??C (97.1 ??F)04/10/2024 8:10 AM ESTRespiratory Zmjy696204/27/2023 8:24 AM ESTOxygen Saturation--Inhaled Oxygen Concentration--Rumfkv446 kg (324 lb)02/03/2024 10:09 AM HCCDuyxdp176.1 cm (6' 6 )07/26/2020 12:40 PM EDTBody Mass Index37.44007/26/2020 12:40 PM EDT Plan of Treatment Health MaintenanceDue DateLast DoneCommentsDepression Csehcngex22/02/1963Zoster (Shingles) Vaccine (1 of 2)2000DTaP,Tdap and Td Vaccines (2 - Tdap) Abdominal Aortic Aneurysm (AAA) Gerlij5807/09/2015Fall Risk Lpzbsgcgz31/02/2016Influenza Dkpawee9912/07/2024dult BMI Fczdoslcz48/28/2025 02/03/2024Tobacco Usxlusbrq54/03/828138/06/2024 Medical Devices Not on file Insurance * Guarantor: Cain Kendall TypeRelation to PatientDate of BirthPhone Billing AddressPersonal/PvzxtcEnag93/02[address] [place] [address] Care Teams Team MemberRelationshipSpecialtyStart DateEnd Date Gutierrez Morton DO [address] [place] [address] PCP - GeneralInternal Medicine07/26/20
--- OUTSIDE RECORDS SUMMARY | 2025-02-02 08:45 | XMS_ITS | Clinical Summary ---
Author Organization [facility] Address [address] [place] [address] Care Team Providers Care Voicer Name Role Phone PraveenGutierrez Primary Care Provider [phone] Allergies Active AllergyReactionsCriticalityNoted EoihDutbspdzJzjnmyrzosjAghii72/15/2025 Latex, Natural MpuwhkAwfiYlf28/11/3042BfolauqnwuUwabyja84/13/2023Sulfa (Sulfonamide Antibiotics)MotnJgz0908/20/2024Sulfamethoxazole-TrimethoprimRash, XeehpjzJmv62/26/2019 Rash Medications MedicationSigDispense QuantityRefillsLast FilledStart DateEnd DateStatus omeprazole (PriLOSEC) [address] capsule Take 40 mg by mouth before breakfast. Do not crush or chew.Active azithromycin (Zithromax) 250 mg tablet Take 250 mg by mouth every other day.Active cholecalciferol, vitamin D3, 50 mcg (2,000 unit) capsule Take 2,000 Units by mouth in the morning.Active metoprolol succinate XL (Toprol-XL) 25 mg 24 hr tablet Indications:Atypical atrial flutter (CMS/HCC)Take 1 tablet (25 mg) by mouth in the morning. Do not crush or chew. 30 tablet 5Active apixaban (Eliquis) 5 mg tablet Indications:Atypical atrial flutter (CMS/HCC)Take 1 tablet (5 mg) by mouth two times daily. 180 tablet 507/6Active amiodarone (Pacerone) 200 mg tablet Indications:Paroxysmal atrial fibrillation (CMS/HCC)Take 1 tablet (200 mg) by mouth once daily as directed. 90 tablet 6Active NON FORMULARY Take 2 chewable tablets by mouth at bedtime. NEURIVA MEMORY PILL OTCActive NON FORMULARY Take 2 tablets by mouth in the morning. OTC PROBOTICActive amiodarone (Pacerone) 200 mg tablet Indications:Paroxysmal atrial fibrillation (CMS/HCC)Take 2 tablets (400 mg) by mouth two times daily for 14 days, THEN 1 tablet (200 mg) in the morning. 146 tablet Discontinued Active Problems ProblemNoted DateDiagnosed DateParoxysmal atrial aukuvijeroab34/22/2025V-tach 08/20/2024 Assessment & Plan (08/21/2024 1:26 PM EDT): - ANRT sv fib/flutter - Etiology unknown - Getting EP study today Assessment & Plan (08/20/2024 2:35 AM EDT): -Etiology unknown - Most excludes ACS as etiology - Will obtain twelve-lead EKG, troponins, and consult cardiology - Patient is currently started on subcu heparin and monitored very closely HTN (hypertension)08/20/2024 Assessment & Plan (08/21/2024 1:26 PM EDT): [...] to be high we will treat Morbid kbnfssq4708/20/2024 Assessment & Plan (08/21/2024 1:26 PM EDT): -Weight loss is extremely important for this patient - Diet and exercise modalities to be used Assessment & Plan (08/20/2024 2:35 AM EDT): -Weight loss is extremely important for this patient - Diet and exercise modalities to be used GERD (gastroesophageal reflux disease)08/20/2024 Assessment & Plan (08/21/2024 1:26 PM EDT): Use pantoprazole DVT prophylaxis using VTE protocols per [facility] placed on Protonix Close Monitoring of pt is ordered. N.p.o. after midnight Consult cardiology. I discussed the plan of care with the patient and nursing staff in the room and everyone appears seven in agreement Assessment & Plan (08/20/2024 2:35 AM EDT): Use pantoprazole DVT prophylaxis using VTE protocols per [facility] placed on Protonix Close Monitoring of pt is ordered. N.p.o. after midnight Consult cardiology. I discussed the plan of care with the patient and nursing staff in the room and everyone appears seven in agreement Atrial hauearx9308/19/2024 Assessment & Plan (08/21/2024 1:26 PM EDT): EP studay today Benign prostatic hyperplasia with lower urinary tract hbehgvle38/28/2024Lumbar ugxqcwhvxzg84/28/2024OSA (obstructive sleep apnea)12/04/2023Venous stasis ulcer of left ankle limited to breakdown of skin12/04/2023Foot drop, left07/26/2020 Foot drop, right07/26/2020soas tendonitis of left side07/26/2020tatus post total hip replacement, sfrihfayk26/20/2021tatus post total knee replacement using cement, fwamzigew07/20/2021 Encounters DateTypeDepartmentCare XkuhTpytviamrem24/24/9795Gycvsh48/17/2025Refill [facility] [address] [facility] [place] [address] Magdy Phoenix MD Paroxysmal atrial fibrillation (CMS/HCC)01/08/2025Telephone [facility] [address] [place] [address] Estefania Nails MA 01/05/2025Orders Only [address] [place] [address] Sandy Fernandez MA Persistent atrial fibrillation (CMS/HCC) (Primary Dx)12/31/2024Telephone [facility] [address] [place] [address] Estefania Nails MA from Last 3 Months Family History RelationNameStatusCommentsFatherDeceasedMotherDeceased Social History Tobacco UseTypesPacks/DayYears UsedDateSmoking Tobacco: FormerCigarettes Smokeless Tobacco: Never Tobacco Cessation:Counseling Given: Not Answered Alcohol UseStandard Drinks/WeekCommentsNot Currently0 (1 standard drink = 0.6 oz pure alcohol)[facility] UtilitiesAnswerDate RecordedIn the past 12 months has the electric, gas, oil, or water [employer] threatened to shut off services in your home?No08/20/2024Humiliation, Afraid, Rape, and Kick questionnaireAnswerDate RecordedWithin the last year, have you been afraid of your partner or ex-partner?No08/20/2024Emotionally AbusedNot on file08/20/2024Physically Abused Not on file08/20/2024Sexually AbusedNot on file08/20/2024Overall Financial Resource Strain (CARDIA)AnswerDate RecordedHow hard is it for you to pay for the very basics like food, housing, medical care, and heating?Not hard at all 08/20/2024TransportationAnswerDate RecordedIn the past 12 months, has lack of transportation kept you from medical appointments or from getting medications?No 08/20/2024Lack of Transportation (Non-Medical)Not on file08/20/2024Housing Stability Vital SignAnswerDate RecordedIn the last 12 months, was there a time when you were not able to pay the mortgage or rent on time?No08/20/2024Number of Times Moved in the Last YearNot on file08/20/2024t any time in the past 12 months, were you homeless or living in a snf (including now)?No08/20/2024 Hunger Vital SignAnswerDate RecordedWithin the past 12 months, you worried that your food would run out before you got the money to buymore.Never true08/20/2024 Ran Out of Food in the Last YearNot on file08/20/2024Sex and Gender Information ValueDate RecordedSex Assigned at FiwgoErws73/15/2025 9:17 AM EDTLegal SexMale 06/29/2022 8:54 AM EDTGender DbovqfgvHwrb10/15/2025 9:17 AM EDTSexual OrientationDon't know08/20/2024 9:17 AM EDT Last Filed Vital Signs Vital SignReadingTime TakenCommentsBlood Jwfnhnep950/8007 1:39 PM EDT Wscmc4614 1:39 PM CTWBxgtnznyyhm67.3 ??C (97.3 ??F)08/22/2024 12:16 PM EDTRespiratory Scky623508/22/2024 12:16 PM EDTOxygen Azjkqmhknm24%10/27/2024 1:39 PM EDTInhaled Oxygen Concentration--Wpzxqk279 kg (314 lb)10/27/2024 1:39 PM EDT Oybbyt018.9 cm (6')10/27/2024 1:39 PM EDTBody Mass Index42.5907 1:39 PM EDT Plan of Treatment DateTypeDepartmentCare Team (Latest Contact Info)Jqgcjoektps07/28/2025 9:15 AM EDTOffice Visit [facility] [address] [place] [facility] [place] [address] Magdy Phoenix MD [address] [place] [address] 02/11/2025 12:00 PM ESTHospital Encounter [facility] [address] [facility] [place] [address] Magdy Phoenix MD [address] [place] [address] Paroxysmal atrial fibrillation (CMS/HCC)02/11/2025 12:00 PM EST - 02/11/2025 3:00 PM ESTSurgery [facility] [place] [facility] [address] [place] [address] Magdy Phoenix MD [address] [place] [address] Ablation a-fib w/ pvi [25022 (CPT??)]02/11/2025 12:00 PM ESTAppointment [facility] [place] [facility] [address] [place] [address] Health MaintenanceDue DateLast DoneCommentsCT Bxuzvkeuxnpp78/02/1951Colonoscopy 1950olorectal Cancer Sqbyzpcac54/02/1951FIT-DNA1950FIT1950 FOBT1950Medicare Annual Wellness (AWV)07/08/19503918Vakkzushbaugf69/02/1951 Depression Ydxagsljo33/02/1963Adult Jyemwcr8307/08/1972Zoster Vaccines (1 of 2) 2000Pneumococcal Vaccine: 50+ Years (2 of 2 - PCV20 or PCV21)05/13/2019 05/13/2018COVID-19 Vaccine (1 - season)2024Influenza Vaccine (#1) 2024Fall Risk Kpqtsjbxa31/17/98444608/22/2024HIB VaccinesAged OutNo longer eligible based on patient's age to complete this topicHPV VaccinesAged OutNo longer eligible based on patient's age to complete this topicIPV VaccinesAged OutNo longer eligible based on patient's age to complete this topicMeningococcal B VaccineAged OutNo longer eligible based on patient's age to complete this topicMeningococcal VaccineAged OutNo longer eligible based on patient's age to complete this topicRotavirus VaccinesAged OutNo longer eligible based on patient's age to complete this topic Procedures Procedure NamePriorityDate/TimeAssociated DiagnosisCommentsECG 12-LEADRoutine 01/12/2025 1:29 PM EDT Persistent atrial fibrillation (CMS/HCC) from Last 3 Months Results * ECG 12 lead (01/12/2025 1:29 PM EDT) Narrative Authorizing ProviderResult TypeResult StatusPafausto GARCIA ORDERABLESFinal Result from Last 3 Months Insurance * Guarantor: Cain KendallAccount TypeRelation to PatientDate of BirthPhone Billing AddressPersonal/EelfbnMmcm40/02/1951 [address] [place] [address] Advance Directives * Full Code (Latest Code Status on File) Date ActivatedDate InactivatedComments08/20/2024 2:26 AM08/22/2024 4:25 PM Care Teams Team MemberRelationshipSpecialtyStart DateEnd Date Gutierrez Morton DO [address] [place] [phone] PCP - GeneralInternal Medicine08/20/24
--- OUTSIDE RECORDS SUMMARY | 2025-02-02 08:45 | XMS_ITS | Clinical Summary ---
Author Organization [facility] Address [address] [facility] [place] [address] Care Team Providers Care Service Station Helper Name Role Phone Gutierrez Morton Primary Care Provider [phone] Allergies Active AllergyReactionsCriticalityNoted DateCommentsDoxycyclineHives,RashLow 07/01/2018 Hives Latex0552WqgklbrwgkMgonybl88/13/2023Sulfamethoxazole-TrimethoprimRash, MhvgjasIua09/26/2019 Rash DmwairworskzMyzylub36/13/2023 Medications MedicationSigDispense QuantityRefillsLast FilledStart DateEnd DateStatus omeprazole (PriLOSEC) [address] capsule TAKE 1 CAPSULE BY MOUTH 30 MINUTES BEFORE MORNING MEAL EVERY DAY01/28/2023ctive minocycline 100 MG capsule Take 100 mg by mouth.02/13/2023ctive cholecalciferol (Vitamin D-3) 50 MCG (1999 UT) capsule 2,000 Units.Active tiZANidine (Zanaflex) 4 MG tablet Take 4 mg by mouth every 12 (twelve) hours PRNActive Misc Natural Products (PROSTATE SUPPORT PO) Take by mouthActive ammonium lactate (Amlactin) 12 % cream Indications:Corns and callositiesApply topically Daily 140 g 504/ctive amiodarone (Pacerone) 200 MG tablet Take by mouth/5Active Eliquis 5 MG tablet Take 5 mg by mouth in the morning and 5 mg before bedtime.Active metoprolol succinate XL (Toprol-XL) 25 MG 24 hr tablet TAKE 1 TABLET (25 MG) BY MOUTH IN THE MORNING . DO NOT CRUSH OR CHEWActive Encounters DateTypeDepartmentCare SzidDdetgsltwnb16/25/2025 9:45 AM EDTOffice Visit [facility] [address] [place] [address] Morales Ramon DPM Corns and callosities (Primary Dx); Onychomycosis; Onychodystrophy; Right foot pain; Left foot pain11/30/2024amboo flowsheet [facility] [address] [place] [address] Morales Ramon DPM 11/30/20245702Kublpf10/22/2025Travelfrom Last 3 Months Immunizations ImmunizationAdministration DatesNext DueDT (pediatric)02/01/1999Pneumococcal Conjugate PCV 13005/13/2018 Family History Medical HistoryRelationNameCommentsCancerFatherRichard VodikaHeart diseaseFather Raleigh VodikaHypertensionFatherRichard VodikaepilepsyFatherRichard Vodika ArthritisMotherMay VodikaColon cancerMotherMay VodikaHeart diseaseMotherMay VodikaHypertensionMotherMay VodikaCancerPaternal GrandfatherJoe VodikaHeart diseaseSiblingHypertensionSiblingepilepsySonRelationNameStatusCommentsFather Raleigh VodikaDeceasedMotherMay VodikaPaternal GrandfatherJoe VodikaSiblingSon Alive Social History Tobacco UseTypesPacks/DayYears UsedDateSmoking Tobacco: FormerCigarettes1.513.9 04/29/1970 - 04/08/1984Smokeless Tobacco: Never Comments:Last smoked >10 yea rs Alcohol UseStandard Drinks/WeekCommentsNot Currently0 (1 standard drink = 0.6 oz pure alcohol)OccasionallySex and Gender InformationValueDate RecordedSex Assigned at BirthNot on fileLegal FubIlmw5506/20/2022 6:44 PM EDTGender Identity Not on fileSexual OrientationNot on file Last Filed Vital Signs Vital SignReadingTime TakenCommentsBlood Lbvlthfu245/70004/21/2021 12:00 PM EST Pulse--Temperature--Respiratory Rate--Oxygen Saturation--Inhaled Oxygen Concentration--Mjbrik747 kg (315 lb)11/30/2024 9:49 AM TAKJcuyup080.1 cm (6' 6 ) 11/30/2024 9:49 AM EDTBody Mass Index36. 9:49 AM EDT Plan of Treatment Not on file Insurance * Guarantor: Cain Kendall TypeRelation to PatientDate of BirthPhone Billing AddressPersonal/CdiakoQcmy80/02/1951 [address] [place] [address] Care Teams Team MemberRelationshipSpecialtyStart DateEnd Date Gutierrez Morton DO [address] [place] [phone] PCP - GeneralInternal Erpyzndb21/13/23
--- OUTSIDE RECORDS SUMMARY | 2025-02-02 08:46 | XMS_ITS | Encounter Summary ---
Author Organization [facility] Address [address] [facility] [place] [address] Care Team Providers Care Director Athletic Name Role Phone PraveenGutierrez Primary Care Provider [phone] Reason for Visit * ReasonCommentsMed Refill Encounter Details DateTypeDepartmentCare Team (Latest Contact Info)Thgvwjhmjhb74/17/2025Refill [facility] at [facility] [address] [place] [address] Magdy Phoenix MD [address] [place] [address] Paroxysmal atrial fibrillation (CMS/HCC) Social History Tobacco UseTypesPacks/DayYears UsedDateSmoking Tobacco: FormerCigarettes Smokeless Tobacco: NeverAlcohol UseStandard Drinks/WeekCommentsNot Currently0 (1 standard drink = 0.6 oz pure alcohol)[facility] UtilitiesAnswerDate RecordedIn the past 12 months has the [employer], gas, oil, or water [employer] threatened to shut off services in your [...] were you homeless or living in a halfway (including now)? No08/20/2024Hunger Vital SignAnswerDate RecordedWithin the past 12 months, you worried that your food would run out before you got the money to buymore.Never true08/20/2024Ran Out of Food in the Last YearNot on file08/20/2024Sex and Gender InformationValueDate RecordedSex Assigned at LbwqoAiei36/15/2025 9:17 AM EDTLegal GioXnqt1306/29/2022 8:54 AM EDTGender MdwzyajaPfur17/15/2025 9:17 AM EDT Sexual OrientationDon't know08/20/2024 9:17 AM EDTdocumented as of this encounter Plan of Treatment DateTypeDepartmentCare Team (Latest Contact Info)Zmxrgauvqzr85/28/2025 9:15 AM EDTOffice Visit [facility] [address] [place] [address] Magdy Phoenix MD [address] [facility] [place] [address] 02/11/2025 12:00 PM ESTHospital Encounter [facility] Vascular Lab [address] [place] [address] Magdy Phoenix MD [address] [facility] [place] [address] Paroxysmal atrial fibrillation (CMS/HCC)02/11/2025 12:00 PM EST - 02/11/2025 3:00 PM ESTSurgery [facility] Heart [facility] [place] [facility] [address] [place] [address] Magdy Phoenix MD [address] [place] [address] Ablation a-fib w/ pvi [[id number] (CPT??)]02/11/2025 12:00 PM ESTAppointment [facility] V[facility] [place] [facility] [address] [place] [address] documented as of this encounter Visit Diagnoses Diagnosis Paroxysmal atrial fibrillation (CMS/HCC)- Primary Atrial fibrillation Paroxysmal atrial fibrillation (CMS/HCC) Atrial fibrillation Paroxysmal atrial fibrillation (CMS/HCC) Atrial fibrillation documented in this encounter Care Teams Team MemberRelationshipSpecialtyStart DateEnd Date Gutierrez Morton DO [address] [place] [address] [place] [address] PCP - GeneralInternal Medicine08/20/24documented as of this encounter
[2025-02-02 09:40] LABS: Hematocrit 40.2 % (42.0-54.0); Hemoglobin 12.9 g/dL (14.0-18.0); Immature Granulocytes Abs Auto 0.03 10^3/uL (0.00-0.03); Immature Granulocytes Pct Auto 0.3 % (0.0-0.5); Lymphocytes Absolute Auto 1.5 10^3/uL (1.2-3.8); Mean Corpuscular HGB Conc 32.1 g/dL (29.9-35.2); Mean Corpuscular Hemoglobin 30.8 pg (25.9-34.0); Mean Corpuscular Volume 95.9 fL (80.0-94.0); Platelet Count 286 10^3/uL (150-450); Red Blood Count 4.19 10^6/uL (4.70-6.10); White Blood Count 8.9 10^3/uL (4.0-11.0)
[2025-02-02 11:00] LABS: Anion Gap 10.6; Blood Urea Nitrogen 20.0 mg/dL (7.0-18.0); Calcium 8.6 mg/dL (8.5-10.1); Carbon Dioxide 28.4 mmol/L (21.0-32.0); Chloride 105 mmol/L (98-107); Estimated GFR (African America >60 (>=60 mL/min/1.73m^2); Estimated GFR (Non-African Ame 53 (>=60 mL/min/1.73m^2); Glucose 105 mg/dL (74-106); Potassium 4.0 mmol/L (3.5-5.1); Sodium 140 mmol/L (136-145)
== END 2025-02-02 08:40 | disposition home or self-care (01) ==
LOC: LAB 08:41
PROVIDERS: PCP Internal Medicine; Visit Provider Internal Medicine Cardiovascular Disease
DX: I48.0 Paroxysmal atrial fibrillation (principal)
CPT/HCPCS: 36415; 80048; 85025

== ENCOUNTER 2025-02-26 10:33 | Outpatient (OUT) | payer MEDICARE, SELFPAY ==
--- OUTSIDE RECORDS SUMMARY | 2025-02-26 10:36 | XMS_ITS | Clinical Summary ---
Author Organization [facility] Address [address] [place] [address] Care Team Providers Care Plunger Shovel Operator Name Role Phone Gutierrez Morton DO Primary Care Provider [phone] Allergies Active AllergyReactionsCriticalityNoted DateComments Sulfamethoxazole-JzoifhuniqjgZdeb02/26/2019 Rash IkaaeheqahlDakki63/26/2019 Hives Medications No known medications Social History Tobacco UseTypesPacks/DayYears UsedDateSmoking Tobacco: Never AssessedArea Deprivation IndexAnswerDate RecordedNational Score (1-100), lower number is lower riskNot on file03/16/2020State Score (1-10), lower number is lower riskNot on file03/16/2020Data from: https://www.neighborhoodatlas.medicine.[facility].edu/. Last address used for calculationNot on file03/16/2020Sex and Gender Information ValueDate RecordedSex Assigned at BirthNot on fileLegal JagWkvw93/02/2012 9:54 AM ESTGender IdentityNot on fileSexual OrientationNot on file Plan of Treatment Health MaintenanceDue DateLast DoneCommentsAnxiety Auubqyhuu30/02/1969Depression Sdwhfaeba40/02/1969Hepatitis C Ohtgxbkgh22/02/1969DTaP,Tdap,Td Vaccine (1 - Tdap)1969Lipid Dpcnbotub78/02/1986CT Izqyagxcelxv45/02/1996Cologuard (FIT-DNA)07/09/19956212Bdjejbflmfb48/02/1996Colorectal Cancer Gkromohma93/02/1996 Diabetes Rowxjkkcz31/02/1996Fecal Occult Blood07/09/19951488Clagfcpsdxuae58/02/1996 Pneumococcal Vaccine: 50+ (1 of 1 - PCV)2000Shingrix Vaccine (1 of 2) 2000Advance Directive Zubmrhqbye72/01/2025ovid-19 Vaccine (1 - 2024- season)2024Influenza Vaccine (#1)2024RSV Vaccine (1 - 1-dose 75+ series)2025 Insurance * Guarantor: Cain Kendall TypeRelation to PatientDate of BirthPhone Billing AddressPersonal/LrtwdvUpde96/02/1951 [address] [place] [address] Care Teams Team MemberRelationshipSpecialtyStart DateEnd Date Gutierrez Morton DO [address] [place] [address] PCP - GeneralInternal Medicine06/28/18
--- OUTSIDE RECORDS SUMMARY | 2025-02-26 10:36 | XMS_ITS | Encounter Summary ---
Author Organization [facility] Address [address] [place] [address] Care Team Providers Care Load Mixer Name Role Phone Gutierrez Morton DO Primary Care Provider [phone] Encounter Details DateTypeDepartmentCare Team (Latest Contact Info)Vrxynjjulyt18/08/2025Orders Only Cardiology [address] [place] [phone] Alcon Murguia MD [address] [place] [address] Social History Tobacco UseTypesPacks/DayYears UsedDateSmoking Tobacco: FormerCigarettes Smokeless Tobacco: NeverAlcohol UseStandard Drinks/WeekCommentsNot Currently0 (1 standard drink = 0.6 oz pure alcohol)[facility] UtilitiesAnswerDate RecordedIn the past 12 months has the [employer], gas, oil, or water [employer] threatened to shut off services in your home?No08/20/2024Humiliation, Afraid, Rape, and Kick questionnaireAnswerDate RecordedWithin the last year, have you been afraid of your partner or ex-partner?No08/20/2024Emotionally AbusedNot on file08/20/2024 Physically AbusedNot on file08/20/2024Sexually AbusedNot on file08/20/2024 Overall Financial Resource Strain (CARDIA)AnswerDate RecordedHow hard is it for you to pay for the very basics like food, housing, medical care, and heating?Not hard at all08/20/2024UT Safety & EnvironmentAnswerDate RecordedFear of Current or Ex-PartnerNot on file05/30/2023Emotionally AbusedNot on file05/30/2023 Physically AbusedNot on file05/30/2023Sexually AbusedNot on file05/30/2023 Physically or Sexually AbusedNot on file05/30/2023TransportationAnswerDate RecordedIn the past 12 months, has lack of transportation kept you from medical appointments or from getting medications?No08/20/2024Lack of Transportation (Non-Medical)Not on file08/20/2024Housing Stability Vital SignAnswerDate RecordedIn the last 12 months, was there a time when you were not able to pay the mortgage or rent on time?No08/20/2024Number of Times Moved in the Last Year Not on file08/20/2024t any time in the past 12 months, were you homeless or living in a fdc (including now)?No08/20/2024Hunger Vital SignAnswerDate RecordedWithin the past 12 months, you worried that your food would run out before you got the money to buymore.Never true08/20/2024Ran Out of Food in the Last YearNot on file08/20/2024Sex and Gender InformationValueDate RecordedSex Assigned at GrdszVtal85/15/2025 9:17 AM EDTLegal CsaGqll0206/29/2022 8:54 AM EDT Gender QdkfjoyzKkef21/15/2025 9:17 AM EDTSexual OrientationHeterosexual or Fkbybryc21/06/2025 10:17 AM ESTdocumented as of this encounter Plan of Treatment DateTypeDepartmentCare Team (Latest Contact Info)Xayvhtjtvzq08/03/2025 11:20 AM ESTFollow-Up [facility] [address] [place] [address] Ling Hdz, HORSES OR MULES TEAMSTER [address] [place] [address] documented as of this encounter Visit Diagnoses Not on filedocumented in this encounter Care Teams Team MemberRelationshipSpecialtyStart DateEnd Date Gutierrez Morton DO [address] [facility] [place] [phone] PCP - GeneralInternal Medicine08/20/24documented as of this encounter
--- OUTSIDE RECORDS SUMMARY | 2025-02-26 10:36 | XMS_ITS | Encounter Summary ---
Author Organization [facility] Address [address] [facility] [place] [address] Care Team Providers Care Hazardous Material Technician Name Role Phone Gutierrez Morton Primary Care Provider Reason for Visit * ReasonCommentsMed Refill Encounter Details DateTypeDepartmentCare Team (Latest Contact Info)Idryxmnruym23/15/2025Refill [facility] Heart at [facility] [address] [place] [address] Ling Hdz, HEAD GOLF PROFESSIONAL [address] [place] [address] Atypical atrial flutter (CMS/HCC) Social History Tobacco UseTypesPacks/DayYears UsedDateSmoking Tobacco: FormerCigarettes Smokeless Tobacco: NeverAlcohol UseStandard Drinks/WeekCommentsNot Currently0 (1 standard drink = 0.6 oz pure alcohol)[facility] UtilitiesAnswerDate RecordedIn the past 12 months has the [employer], gas, oil, or water [employer] threatened to shut off services in your [...] homeless or living in a long-term (including now)?No08/20/2024Hunger Vital SignAnswerDate RecordedWithin the past 12 months, you worried that your food would run out before you got the money to buymore.Never true08/20/2024Ran Out of Food in the Last YearNot on file08/20/2024Sex and Gender InformationValueDate RecordedSex Assigned at KexklZidi44/15/2025 9:17 AM EDTLegal HotBvmg4806/29/2022 8:54 AM EDT Gender WddmgvbfRrww84/15/2025 9:17 AM EDTSexual OrientationHeterosexual or Glulkooy22/06/2025 10:17 AM ESTdocumented as of this encounter Plan of Treatment DateTypeDepartmentCare Team (Latest Contact Info)Xremwlccunf28/03/2025 11:20 AM ESTFollow-Up [facility] at [facility] [address] [place] [address] Ling Hdz, HEAD GOLF PROFESSIONAL [address] [place] [address] documented as of this encounter Visit Diagnoses Diagnosis Atypical atrial flutter (CMS/HCC) documented in this encounter Care Teams Team MemberRelationshipSpecialtyStart DateEnd Date Gutierrez Morton DO [address] [place] [phone] PCP - GeneralInternal Medicine08/20/24documented as of this encounter
--- OUTSIDE RECORDS SUMMARY | 2025-02-26 10:36 | XMS_ITS | Clinical Summary ---
Author Organization [facility] Address [id number] [place] [address] Care Team Providers Care [employer] Curator Name Role Phone Gutierrez Morton Primary Care Provider [phone] Allergies Active AllergyReactionsCriticalityNoted DfulJyqytgowYzvisdcrcuzNgzjj64/26/2019 Hives Latex, Natural RvgkwyHietNsw29/13/2024Sulfamethoxazole-TrimethoprimRashLow 07/01/2018 Rash Medications MedicationSigDispense QuantityRefillsLast FilledStart DateEnd DateStatus melatonin 5 mg tablet,chewable Chew and swallow.Active omeprazole (PriLOSEC) 10 mg capsule Take 1 capsule (10 mg total) by mouth every morning before breakfast.Active Active Problems ProblemNoted DateDiagnosed DateVenous insufficiency of left lower extremity 02/03/2024enign prostatic hyperplasia with lower urinary tract symptoms 12/04/2023GERD (gastroesophageal reflux disease)12/04/2023Lumbar spondylosis 12/04/20235954Kpobmnx28/28/2024OSA (obstructive sleep apnea)12/04/2023Venous stasis ulcer of left ankle limited to breakdown of skin12/04/2023Status post total hip replacement, yqsjggcuj40/20/2021tatus post total knee replacement using cement, nsxmjxyai80/20/2021Foot drop, right07/26/2020Foot drop, left07/26/2020soas tendonitis of left side07/26/2020 Social History Tobacco UseTypesPacks/DayYears UsedDateSmoking Tobacco: FormerSmokeless Tobacco: Never Tobacco Cessation:Counseling Given: Not Answered Alcohol UseStandard Drinks/WeekCommentsNever0 (1 standard drink = 0.6 oz pure alcohol)ChildcareAnswerDate DwksjufaYdhgveqifCppimpm46/06/2019EmploymentAnswer Date PrtukbpkCcszgivjlrTojbvyr87/06/2019Hunger ScreeningAnswerDate Recorded Within the past 12 months we worried whether our food would run out before we got money to buy more.Never True04/10/2024Within the past 12 months the food we bought just didn't last and we didn't have money to get more.Never True 04/10/2024Purpose - LifeAnswerDate RecordedPurpose and direction in lifeUnknown 05/19/2020ex and Gender InformationValueDate RecordedSex Assigned at BirthNot on fileLegal FjdYlwi4911/11/2014 12:05 PM EDTGender IdentityNot on fileSexual OrientationNot on file Last Filed Vital Signs Vital SignReadingTime TakenCommentsBlood Ujdxrvfv912/9404/10/2024 8:10 AM EST Jzegg743704/10/2024 8:10 AM KVQTdopzwuynde69.2 ??C (97.1 ??F)04/10/2024 8:10 AM ESTRespiratory Tfvr135604/27/2023 8:24 AM ESTOxygen Saturation--Inhaled Oxygen Concentration--Aigmcw856 kg (324 lb)02/03/2024 10:09 AM WXSFokjvy797.1 cm (6' 6 )07/26/2020 12:40 PM EDTBody Mass Index37.44007/26/2020 12:40 PM EDT Plan of Treatment Health MaintenanceDue DateLast DoneCommentsDepression Utvwjyorm28/02/1963Zoster (Shingles) Vaccine (1 of 2)2000DTaP,Tdap and Td Vaccines (2 - Tdap) Abdominal Aortic Aneurysm (AAA) Qnskja8607/09/2015Fall Risk Qnftmljno45/02/2016Influenza Vrtbsnp4912/07/2024dult BMI Uowrahtjq13/28/2025 02/03/2024Tobacco Fiajrokpv70/03/668272/06/2024RSV ( or age 60+ yrs) (1 - 1-dose 75+ series)2025 [employer] Not on file Insurance * Guarantor: Cain Kendall TypeRelation to PatientDate of BirthPhone Billing AddressPersonal/[id number] [facility] [place] [address] Care Teams Team MemberRelationshipSpecialtyStart DateEnd Date Gutierrez Morton DO [address] [place] [address] PCP - GeneralInternal Medicine07/26/20
--- OUTSIDE RECORDS SUMMARY | 2025-02-26 10:36 | XMS_ITS | Clinical Summary ---
Author Organization [facility] Address [address] [place] [address] Care Team Providers Care Materials Scientist Name Role Phone Gutierrez Morton DO Primary Care Provider [phone] Allergies Active AllergyReactionsCriticalityNoted RnreStwgmyhjRqzfjgbdarcNisxu63/15/2025 Latex, Natural VwbzkgOzhlYpi62/11/8423XpuvuspzytLnrjuup00/13/2023Sulfa (Sulfonamide Antibiotics)ObxdCpx1608/20/2024Sulfamethoxazole-TrimethoprimRash, RhwhmpqDzn20/26/2019 Rash RazgbxrptutnOpzfmqb15/03/2025 Medications MedicationSigDispense QuantityRefillsLast FilledStart DateEnd DateStatus omeprazole (PriLOSEC) [address] capsule Take 40 mg by mouth before breakfast. Do not crush or chew.Active azithromycin (Zithromax) 250 mg tablet Take 250 mg by mouth every other day.Active apixaban (Eliquis) 5 mg tablet Indications:Atypical atrial flutter (CMS/HCC)Take 1 tablet (5 mg) by mouth two times daily. 180 tablet 507/ctive amiodarone (Pacerone) 200 mg tablet Indications:Paroxysmal atrial fibrillation (CMS/HCC)Take 1 tablet (200 mg) by mouth once daily as directed. 90 tablet /ctive metoprolol succinate XL (Toprol-XL) 25 mg 24 hr tablet Indications:Atypical atrial flutter (CMS/HCC)Take 1 tablet (25 mg) by mouth in the morning. Do not crush or chew. 90 tablet 311516Active cholecalciferol, vitamin D3, 50 mcg (2,000 unit) capsule Take 2,000 Units by mouth in the morning.02/11/2025Discontinued(Stop Taking at Discharge) metoprolol succinate XL (Toprol-XL) 25 mg 24 hr tablet Indications:Atypical atrial flutter (CMS/HCC)Take 1 tablet (25 mg) by mouth in the morning. Do not crush or chew. 30 tablet 5104/24/2024Discontinued NON FORMULARY Take 2 chewable tablets by mouth at bedtime. NEURIVA MEMORY PILL OTC104/13/2024 Discontinued(Stop Taking at Discharge) NON FORMULARY Take 2 tablets by mouth in the morning. OTC REGKJQKX48/06/2025Discontinued(Stop Taking at Discharge) doxepin (SINEquan) 10 mg capsule Take 10 mg by mouth at bedtime.Discontinued(Stop Taking at Discharge) Active Problems ProblemNoted DateDiagnosed DateAdverse reaction to fsua-qsz-rzamlmo medication 02/02/20256611Zedlin83/28/2312Smluyvzju22/28/2025 Overview (02/02/2025): Problem List clean-up per request of Phys. EHR Cmte Elevated BP without diagnosis of trbkcfiybcpl48/28/2025 Overview (02/02/2025): Echo: LVEF 55%, BARRY, enlarged RV w/ normal function, RVSP 41 - 08/2024 Sxyydjrvmlwbjksxvtzn78/28/2025Lower extremity rbmnvfci97/28/2025Lumbar stenosis with neurogenic bwbrcbudzudj05/28/2025 Overview (02/02/2025): Problem List clean-up per request of Phys. EHR Cmte Lhqirzqpvljf08/28/2025Peripheral ywlynixbby37/28/2025Pruritic erythematous rash 02/02/2025Screening PSA (prostate specific antigen)02/02/2025 Overview (02/02/2025): PSA: 2.02 - 05/2022, 2.19 - 10/2024 Paroxysmal atrial fyblmexxiuek95/22/2025V-tach08/20/2024 Assessment & Plan (08/21/2024 1:26 PM EDT): [...] to be high we will treat Morbid qbfgyfo2408/20/2024 Assessment & Plan (08/21/2024 1:26 PM EDT): [...] pantoprazole DVT prophylaxis using VTE protocols per [facility] placed on Protonix Close Monitoring of pt is ordered. N.p.o. after midnight Consult cardiology. I discussed the plan of care with the patient and nursing staff in the room and everyone appears seven in agreement Assessment & Plan (08/20/2024 2:35 AM EDT): Use pantoprazole DVT prophylaxis using VTE protocols per [facility] placed on Protonix Close Monitoring of pt is ordered. N.p.o. after midnight Consult cardiology. I discussed the plan of care with the patient and nursing staff in the room and everyone appears seven in agreement Atrial qzunffz3108/19/2024 Assessment & Plan (08/21/2024 1:26 PM EDT): EP studay today Benign prostatic hyperplasia with lower urinary tract mekdfuwk57/28/2024Lumbar kltbsxxlemo94/28/2024OSA (obstructive sleep apnea)12/04/2023Venous stasis ulcer of left ankle limited to breakdown of skin12/04/2023Foot drop, left07/26/2020 Foot drop, right07/26/2020soas tendonitis of left side07/26/2020tatus post total hip replacement, blsrbpfwo92/20/2021tatus post total knee replacement using cement, nwrpnkxoa18/20/2021 Encounters DateTypeDepartmentCare MnlbQknwpqtzpyg68/21/2025Telephone [facility] [address] [place] [address] Sandy Fernandez MA 02/20/2025Refill [facility] [address] [place] [address] Ling Hdz, SHARLENE Atypical atrial flutter (CMS/HCC)02/13/2025Orders Only Cardiology [address] [place] [address] Alcon Murguia MD 02/11/2025 12:14 PM ESTAnesthesia Event [facility] Vascular Lab [address] [place] [address] Tono Martinez MD Arnaut, Daniel, MD 02/11/2025 12:00 PM EST - 02/11/2025 3:00 PM ESTSurgery [facility] Heart [facility] Vascular Lab [address] [place] [address] Magdy Phoenix MD Ablation a-fib w/ pvi [95836 (CPT??)]02/11/2025 10:11 AM EST - 02/11/2025 6:06 PM ESTHospital Encounter [facility] Heart and Vascular Center Vascular Lab [address] [place] [address] Magdy Phoenix MD Paroxysmal atrial fibrillation (CMS/HCC) Discharge Disposition: Home or Self Care (01)02/11/20256695Nfzljo45/28/2025 9:15 AM EDTOffice Visit [facility] [address] [address] Magdy Phoenix MD Paroxysmal atrial fibrillation (CMS/HCC) (Primary Dx)02/02/2025Orders Only [facility] Pre-Anesthesia Clinic [address] [place] [address] Lacy Kramer, FANNIE 01/29/20256690Rjufgu56/17/2025Refill [facility] [address] [place] [address] Magdy Phoenix MD Paroxysmal atrial fibrillation (CMS/HCC)01/08/2025Telephone [facility] [address] [place] [address] Estefania Nails MA 01/05/2025Orders Only [facility] [address] [place] [address] Sandy Fernandez MA Persistent atrial fibrillation (CMS/HCC) (Primary Dx)12/31/2024Telephone [facility] [address] [address] Estefania Nails MA from Last 3 Months Family History RelationNameStatusCommentsFatherDeceasedMotherDeceased Social History Tobacco UseTypesPacks/DayYears UsedDateSmoking Tobacco: FormerCigarettes Smokeless Tobacco: Never Tobacco Cessation:Counseling Given: Not Answered Alcohol UseStandard Drinks/WeekCommentsNot Currently0 (1 standard drink = 0.6 oz pure alcohol)[facility] UtilitiesAnswerDate RecordedIn the past 12 months [...] medical care, and heating?Not hard at all 08/20/2024UT Safety & EnvironmentAnswerDate RecordedFear of Current or Ex-PartnerNot on file05/30/2023Emotionally AbusedNot on file05/30/2023hysically AbusedNot on file05/30/2023Sexually AbusedNot on file05/30/2023hysically or Sexually AbusedNot on file05/30/2023TransportationAnswerDate RecordedIn the [...] were you homeless or living in a prison (including now)? No08/20/2024Hunger Vital SignAnswerDate RecordedWithin the past 12 months, you worried that your food would run out before you got the money to buymore.Never true08/20/2024Ran Out of Food in the Last YearNot on file08/20/2024Sex and Gender InformationValueDate RecordedSex Assigned at HmlsqWtux20/15/2025 9:17 AM EDTLegal YfsUhnl3906/29/2022 8:54 AM EDTGender EgykzikxXmvf95/15/2025 9:17 AM EDT Sexual OrientationHeterosexual or Rvrybidf70/06/2025 10:17 AM EST Last Filed Vital Signs Vital SignReadingTime TakenCommentsBlood Refyqfyq078/8602/11/2025 5:20 PM EST Qilkb139402/11/2025 5:20 PM XMVNztyqqtdjjm29 ??C (96.8 ??F)02/11/2025 3:00 PM EST Respiratory Lqoq813304/13/2024 5:20 PM ESTOxygen Oclvxygpjj24%02/11/2025 5:20 PM ESTInhaled Oxygen Concentration--Mwtzwa491 kg (325 lb 2.9 oz)02/11/2025 11:29 AM JXFHmswlp186.1 cm (6' 6 )02/11/2025 11:29 AM ESTBody Mass Index37.5802/11/2025 11:29 AM EST Plan of Treatment DateTypeDepartmentCare Team (Latest Contact Info)Qylavfoapnk70/03/2025 11:20 AM ESTFollow-Up [facility] [address] [place] [address] Ling Hdz, WALL CLEANER [address] [place] [address] Health MaintenanceDue DateLast DoneCommentsCT Lzzqtccsvyyr35/02/1951Colonoscopy 1Colorectal Cancer Blcdlursa23/02/1951FIT-DNA1950FIT1950 FOBT1950Medicare Annual Wellness (AWV)07/08/19504454Hakoanagofnim57/02/1951 Depression Izuedlzbf08/02/1963Adult Qxbvjpy7407/08/1972Zoster Vaccines (1 of 2) 2000Pneumococcal Vaccine: 50+ Years (2 of 2 - PCV20 or PCV21)05/13/2019 05/13/2018COVID-19 Vaccine ( season)2024Influenza Vaccine (#1) 2024Fall Risk Nmgeiokqf56/17/85434708/22/2024HIB VaccinesAged OutNo longer eligible based on patient's [...] complete this topic Procedures Procedure NamePriorityDate/TimeAssociated DiagnosisCommentsECG 12-LEADSTAT 02/11/2025 3:49 PM EST ABLATION A-FIB W/ GJCAgouwlh51/06/2025 2:31 PM EST Paroxysmal atrial fibrillation (CMS/HCC) VJTSFQKYPFPwvxppq71/06/2025 2:09 PM EST AGYAFFDDRBSVqudian72/06/2025 2:09 PM EST HIGH SENSITIVITY TROPONIN SSwvqfec08/06/2025 2:09 PM EST BILIRUBIN, YVSSEUpolufj22/06/2025 2:09 PM EST BILIRUBIN, VUQGESFnnvxjg58/06/2025 2:09 PM EST LACTATE WWRDSRAOJMGUHSjbsdpm49/06/2025 2:09 PM EST TN AN ELECTIVE ENDOTRACHEAL QWHHGERjrhqji80/06/2025 12:24 PM EST ECG 12-HEIQUidgose48/06/2025 11:56 AM EST PROTIME-HWROuhlaiq59/06/2025 11:48 AM EST POCT GLUCOSE METER UNSOLICITED LBBCBKGMzasdwo16/06/2025 11:43 AM EST ECG 12-SFOZXhxzdle23/07/2025 1:29 PM EDT Persistent atrial fibrillation (CMS/HCC) from Last 3 Months Results * EKG 12 lead (02/11/2025 3:49 PM EST) Only the most recent of3 resultswithin the time period is included. ComponentValueRef RangeTest MethodAnalysis TimePerformed AtPathologist Signature Ventricular Ybrt89WYIBA MUSEAtrial Nkhm77OKFNW MUSEPR Vxmatgyc811kyLM MUSEQRS YLWWCMVH988njFR MUSEQT Sdlvxpqf965fdQI MUSEQTC CALCULATION(HINAZETT)479msGE MUSEP Tgsg822wpjvncrUT PHEJF-Hzbk-35zgcijsoTW MUSET Wave Ctxc78eboxcwtDT MUSESpecimen (Source)Anatomical Location / LateralityCollection Method / VolumeCollection TimeReceived Time02/11/2025 3:43 PM EST02/11/2025 5:36 PM EST Impressions GE MUSE - 02/11/2025 5:36 PM EST Sinus bradycardia Otherwise normal ECG When compared with ECG of 11-FEB-2025 11:39, (unconfirmed) No significant change was found Confirmed by Emerson GROSS, HORACE Rausch ([id number]) on 02/11/2025 5:36:06 PM Narrative Procedure Note Horace Gross MD - 02/11/2025 IMPRESSION: Sinus bradycardia Otherwise normal ECG When compared with ECG of 11-FEB-2025 11:39, (unconfirmed) No significant change was found Confirmed by Emerson GROSS SAMER J. (57) on 02/11/2025 5:36:06 PM Authorizing ProviderResult TypeResult StatusPaul Alban GARCIA ORDERABLESFinal ResultPerforming OrganizationAddressCity/State/ZIP CodePhone Number GE MUSE * ABLATION A-FIB W/ PVI (02/11/2025 2:31 PM EST)Anatomical RegionLaterality ModalityOtherSpecimen (Source)Anatomical Location / LateralityCollection Method / VolumeCollection TimeReceived Time Narrative 02/11/2025 3:09 PM EST Table formatting from the original result was not included. ATRIAL FIBRILLATION ABLATION PROCEDURE NOTE DATE OF PROCEDURE: ??02/11/2025 PERFORMING PHYSICIAN: Dr. Magdy Phoenix PARENT EDUCATOR: Dr Rosanna Heart PARENT EDUCATOR: CHICHI CONSENT: Patient NAME OF THE PROCEDURE: Pulmonary Vein Isolation and Comprehensive EP study. INDICATIONS FOR PROCEDURE: 1. Persistent atrial fibrillation. PROCEDURES PERFORMED: 1. Sonosite guided venous access as noted below and images stored. 2. Comprehensive EP study and catheter ablation for persistent atrial fibrillation through the pulmonary vein isolation technique. This includes right atrial recording and pacing, His bundle recording and right ventricular recording and pacing. 3. Intracardiac EP 3D mapping. 4. Intracardiac echocardiogram 5. Left atrial and coronary sinus recording and pacing to assess ablation results. 6. Left heart pressure measurements and LV pacing and recording. 7. Induction of arrhythmia and testing of ablation results using intravenous adenosine infusion. 8. Fluroscopy. 9. Prior CTI ablation. 10. Arterial line placement. FLUROSCOPY: 17.4min/ 314Gray EBL: 20cc ?? PROCEDURE NOTE: Pt was brought to EP lab and he was in Atrial paced rhtyhm. ??Thereafter, we proceeded to do atrial fibrillation ablation. ??Both the groins were then prepared and draped. Ultrasound was used to determine the course and patency of the femoral veins on both sides and they were noted to be patent and the image stored in PACS. After infiltration with 1% lidocaine, 3 venous sheaths were placed in the right as noted below and left sided femoral radial arterial access was placed. LFA: 5F: Hemodynamic monitoring. RFV: 8Fx1 CS Catheter (EZ Steer) 9Fx1: ICE catheter. 8F -->17F: Faradrive sheath for PFA catheter Heparin bolus was given followed by additional bolus and continuous intravenous drip to target ACT around 350. An intracardiac ultrasound catheter was inserted into the right atrium to examine the right atrial anatomy, atrial septum, pulmonary vein anatomy and to monitor for pericardial effusion and guide transseptal access. ICE revealed that the patient had a moderatly dilated right atrium and left atrium and no pericardial effusion with no GABRIEL thrombus. At this point I decided to proceed with the transseptal puncture to perform A. fib ablation. Single transseptal access technique was used to cross to the left side. Following the first transeptal access, which was achieved via puncture of the thinner aspect of the septum using Gideon needle, Octoray catheter was placed in the left atrium. Pulmonary vein and left atrial anatomic mapping were performed using a 3-D CARTO computer-based mapping system. Identification of the pulmonary vein ostia was assisted by the left atrial signals on the ablation catheter, the ICE catheter and the Octoray catheter placed in the individual pulmonary veins. Mapping revealed significant normal LA voltage. I then proceeded to exchange the SL1 for 17F Faradrive sheath. Farawave multipolar catheter was advanced over a wire with negative aspiration in periodic fashion to avoid any air bubbles. Thereafter the catheter was advanced to each of the veins over the wire to maintain coaxial placement of catheter.2 PFA energy pulses were given in each position and then position rotated to 36degrees to get new location and repeat PFA energy were provided. Then this process was repeated in the flower configuration in each veins. ??Additional energy lesions were given to ensure there was good isolation. Exit block verified with pacing in the veins. I decided to proceed to the right atrium and then proceeded to verify CTI ablation. Bidirectional block was demonstrated with pacing revealing a timing of 145ms. I performed voltage mapping which revealed CTI block also. ??Burst pacing @ 280sput patient into atrial flutter with CL of 300ms with activation suggestive of roof flutter (cs near simultanoeus) with activation changing to a CS 1 /2 first indicative of perimitral with CL of 320ms (however prox CS PPI-TCL was 120ms) which was pace terminated. The ICE catheter was used to reexamine the intracardiac anatomy and this showed no pericardial effusion, same as baseline. ??ICE catheter and all catheters were removed. ??Venous sheaths were pulled, and hemostasis achieved with Perclose sutures and Vascade XL occlusion device. He was transferred to observation bay and then to hospital room for observation. Arterial sheath was pulled and Mynx closure device was used for hemostasis. LA baseline (mmHg) 1st and 2nd ??27/12 ??HR 68 LA 600ms pacing (mmHg) 28/2 LA 400ms pacing (mmHg) NA AHms 69 HVms 67 VERPms 600/300, VA conduction- AV Wenkebach ms 470 AH jump ms NA AVNERP ms 600/290 AERP ms 600/280 POST PROCEDURE DIAGNOSIS 1. Persistent atrial fibrillation s/p PVI 2. Prior CTI ablation with bidirectional block verified 3. Normal LA voltage 4. Induced atypical flutter with CL of 300ms and 320ms. 5. Elevated LA pressures at baseline indicative of HFpEF SPECIMEN REMOVED: None PLAN: 1. Anticoagulation after 2 hrs of sheath removal. 2. Protonix 40mg bid x 1 month. 3. Groin precautions. Magdy Phoenix MD Cardiac Electrophysiology ?? Authorizing ProviderResult TypeResult Zeinab Phoenix [facility] ELECTROPHYSIOLOGY PROCEDURESFinal Result * (ABNORMAL) High Sensitivity Troponin I (02/11/2025 2:09 PM EST)ComponentValue Ref RangeTest MethodAnalysis TimePerformed AtPathologist SignatureHigh Sensitivity Troponin I81(HH)<20 ng/L104/13/2024 3:04 PM [facility] ([facility])Specimen (Source)Anatomical Location / LateralityCollection Method / VolumeCollection TimeReceived TimeBloodVenous blood specimen / Unknown Venipuncture / Rzdryzf3002/11/2025 2:09 PM EST02/11/2025 2:09 PM EST Narrative Authorizing ProviderResult TypeResult Zeinab [facility] BLOOD ORDERABLES Final ResultPerforming OrganizationAddressCity/State/ZIP CodePhone Number [facility] [address] [place] [address] * (ABNORMAL) Hemoglobin (02/11/2025 2:09 PM EST)ComponentValueRef RangeTest MethodAnalysis TimePerformed AtPathologist RgopnahqmSqgzsjhtxt81.7(L)13.0 - 17.0 g/dL02/11/2025 2:26 PM [facility] ([facility])Specimen (Source) Anatomical Location / LateralityCollection Method / VolumeCollection Time Received TimeBloodVenous blood specimen / UnknownVenipuncture / Unknown 02/11/2025 2:09 PM EST02/11/2025 2:09 PM EST Narrative Authorizing ProviderResult TypeResult Zeinab [facility] BLOOD ORDERABLES Final ResultPerforming OrganizationAddressCity/State/ZIP CodePhone Number [facility] ([facility]) [address] [place] [address] * Lactate dehydrogenase (02/11/2025 2:09 PM EST)ComponentValueRef RangeTest MethodAnalysis TimePerformed AtPathologist JgnnbsyidOC970158 - 271 U/L 02/11/2025 2:52 PM [facility] ([facility])Specimen (Source)Anatomical Location / LateralityCollection Method / VolumeCollection TimeReceived Time BloodVenous blood specimen / UnknownVenipuncture / Kjfmjsa9402/11/2025 2:09 PM EST02/11/2025 2:09 PM EST Narrative Authorizing ProviderResult TypeResult StatusMagdy [facility] BLOOD ORDERABLES Final ResultPerforming OrganizationAddressCity/State/ZIP CodePhone Number [facility] [place] [address] * Haptoglobin (02/11/2025 2:09 PM EST)ComponentValueRef RangeTest MethodAnalysis TimePerformed AtPathologist FialumwaaDishdbphwwb286.032.0 - 197.0 mg/dL 02/12/2025 10:29 AM [facility] ([facility])Specimen (Source)Anatomical Location / LateralityCollection Method / VolumeCollection TimeReceived Time BloodVenous blood specimen / UnknownVenipuncture / Gxbigrh4402/11/2025 2:09 PM EST02/11/2025 2:09 PM EST Narrative Authorizing ProviderResult TypeResult StatusMagdy [facility] BLOOD ORDERABLES Final ResultPerforming OrganizationAddressCity/State/ZIP CodePhone Number [facility] [address] [place] [address] * Bilirubin, direct (02/11/2025 2:09 PM EST)ComponentValueRef RangeTest Method Analysis TimePerformed AtPathologist SignatureBilirubin, Direct0.10 - 0.2 mg/dL02/11/2025 2:52 PM [facility])Specimen (Source) Anatomical Location / LateralityCollection Method / VolumeCollection Time Received TimeBloodVenous blood specimen / UnknownVenipuncture / Unknown 02/11/2025 2:09 PM EST02/11/2025 2:09 PM EST Narrative Authorizing ProviderResult TypeResult StatusMagdy Phoenix MDLAB BLOOD ORDERABLES Final ResultPerforming OrganizationAddressCity/State/ZIP CodePhone Number [facility]) [address] [place] [address] * Bilirubin, total (02/11/2025 2:09 PM EST)ComponentValueRef RangeTest Method Analysis TimePerformed AtPathologist SignatureTotal Bilirubin0.50.3 - 1.0 mg/dL02/11/2025 2:52 PM ESTL[facility]ACE [facility])Specimen (Source) Anatomical Location / LateralityCollection Method / VolumeCollection Time Received TimeBloodVenous blood specimen / UnknownVenipuncture / Unknown 02/11/2025 2:09 PM EST02/11/2025 2:09 PM EST Narrative Authorizing ProviderResult TypeResult StatusMagdy [facility]FORD BLOOD ORDERABLES Final ResultPerforming OrganizationAddressCity/State/ZIP CodePhone Number [facility] ([facility]) [address] [place] [address] * TN AN ELECTIVE ENDOTRACHEAL AIRWAY (02/11/2025 12:24 PM EST) Narrative Tono Martinez MD - 02/11/2025 12:24 PM EST Tono Martinez MD 02/11/2025 1:48 PM Airway Date/Time: 02/11/2025 12:24 PM Reason: elective Airway not difficult General Information and Staff Patient location during procedure: OR Anesthesiologist: Tono Martinez MD Resident/RELIABILITY TECHNOLOGIST/CAA: Nancy Schmitt MD Performed: resident/RELIABILITY TECHNOLOGIST/CAA Learner assisted: MS 3 Isa Medina assisted Patient Condition Indications for airway management: anesthesia and airway protection Patient position: sniffing Sedation level: deep Final Airway Details Preoxygenated: yes Final airway type: endotracheal airway Successful airway: ETT Cuffed: yes Successful intubation technique: video laryngoscopy Adjuncts used in placement: intubating stylet Endotracheal tube insertion site: oral Blade: Philip Blade size: #4 ETT size (mm): 8.0 Cormack-Lehane Classification: grade I - full view of glottis Placement verified by: chest auscultation and capnometry Measured from: teeth ETT to teeth (cm): 24 Number of attempts at approach: 1 Number of other approaches attempted: 0 Authorizing ProviderResult TypeResult StatusThomas Juan DUVALLTHESIColette ORDERABLESEdited Result - Final * Protime-INR (02/11/2025 11:48 AM EST)ComponentValueRef RangeTest Method Analysis TimePerformed AtPathologist ZyedektenNbrxmmw42.812.3 - 14.8 Seconds 02/11/2025 12:16 PM [facility] ([facility])INR1.050.90 - 1.10104/13/2024 12:16 PM [facility])Comment: [facility] RECOMMENDED INR FOR WARFARIN THERAPY CONDITION ?INR PROPHYLAXIS OF VENOUS THROMBOSIS ? 2-3 (HIGH-RISK SURGERY) TREATMENT OF VENOUS THROMBOSIS ? 2-3 TREATMENT OF PULMONARY EMBOLISM ?2-3 PREVENTION OF SYSTEMIC EMBOLISM: ? 2-3 ?ACUTE MYOCARDIAL INFARCTION ?TISSUE HEART VALVES ?VALVULAR HEART DISEASE ?ATRIAL FIBRILLATION ?RECURRENT SYSTEMIC EMBOLISM MECHANICAL HEART VALVE ? 2.5-3.5 FROM: ORAL ANTICOAGULANTS. ??MECHANISM OF ACTION, CLINICAL EFFECTIVENESS, AND OPTIMAL THERAPEUTIC RANGE. ??CHEST 1995;108:231S-246S. Specimen (Source)Anatomical Location / LateralityCollection Method / Volume Collection TimeReceived TimeBloodVenous blood specimen / UnknownVenipuncture / Dfpwshb8002/11/2025 11:48 AM EST02/11/2025 11:52 AM EST Narrative Authorizing ProviderResult TypeResult StatusMagdy [facility] BLOOD ORDERABLES Final ResultPerforming OrganizationAddressCity/State/ZIP CodePhone Number [facility] ([facility]) [address] [place] [address] * POCT glucose meter (02/11/2025 11:43 AM EST)ComponentValueRef RangeTest Method Analysis TimePerformed AtPathologist SignatureGlucose AFD7116 - 105 mg/dL 02/11/2025 11:54 AM [facility] ([facility])Comment:ngrothaSpecimen (Source)Anatomical Location / LateralityCollection Method / VolumeCollection TimeReceived TimeBloodCapillary blood specimen / Cxxakem7602/11/2025 11:43 AM EST02/11/2025 11:54 AM EST Narrative [facility] ([facility]) - 02/11/2025 11:54 AM EST Waived Testing in the ED is performed under the ED CLIA certificate #[id number]. Authorizing ProviderResult TypeResult StatusMagdy [facility] BLOOD ORDERABLES Final ResultPerforming OrganizationAddressCity/State/ZIP CodePhone Number [facility] ([facility]) [address] [place] [address] from Last 3 Months Insurance * Guarantor: Cain Kendall TypeRelation to PatientDate of BirthPhone Billing AddressPersonal/JkbmruRujh68/02/1951 [address] [place] [address] Advance Directives * Full Code (Latest Code Status on File) Date ActivatedDate InactivatedComments08/20/2024 2:26 AM08/22/2024 4:25 PM Care Teams Team MemberRelationshipSpecialtyStart DateEnd Date Gutierrez Morton DO [address] [place] [phone] PCP - GeneralInternal Medicine08/20/24
--- OUTSIDE RECORDS SUMMARY | 2025-02-26 10:36 | XMS_ITS | Encounter Summary ---
Author Organization [facility] Address [address] [place] [address] Care Team Providers Care Admissions Recruiter Name Role Phone Gutierrez Morton DO Primary Care Provider [phone] Encounter Details DateTypeDepartmentCare Team (Latest Contact Info)Ndknvaqjnvx94/21/2025Telephone [facility] [place] [address] [place] [address] [place], [place] Social History Tobacco UseTypesPacks/DayYears UsedDateSmoking Tobacco: FormerCigarettes Smokeless Tobacco: NeverAlcohol UseStandard Drinks/WeekCommentsNot Currently0 (1 standard drink = 0.6 oz pure alcohol)[facility] UtilitiesAnswerDate RecordedIn the past 12 [...] file05/30/2023 Physically AbusedNot on file05/30/2023Sexually AbusedNot on 05/30/2023 Physically or Sexually AbusedNot on file05/30/2023TransportationAnswerDate RecordedIn [...] homeless or living in a prison (including now)?No08/20/2024Hunger Vital SignAnswerDate RecordedWithin the past 12 months, you worried that your food would run out before you got the money to buymore.Never true08/20/2024Ran Out of Food in the Last YearNot on file08/20/2024Sex and Gender InformationValueDate RecordedSex Assigned at UyeaxAooa70/15/2025 9:17 AM EDTLegal AlzEzrg5806/29/2022 8:54 AM EDT Gender LttcryymTche83/15/2025 9:17 AM EDTSexual OrientationHeterosexual or Axxboips58/06/2025 10:17 AM ESTdocumented as of this encounter Miscellaneous Notes * Telephone Encounter - Sandy Fernandez MA - 02/26/2025 8:[address] Phoenix called me. He would like the patient to call us back on Saturday, 03/01 with an update. I informed patient and he said he would call us back 03/01. * Telephone Encounter - Sandy Fernandez MA - 02/26/2025 8:48 AM EST Patient called yesterday and spoke with Sintia. She sent Dr. Phoenix a message via [employer]. I cannot see the reply. Patient called back today asking if we had heard back from Dr. Phoenix. I cannot see Sintia and Dr. Phoenix's [employer] Chat so I sent text message to Dr. Phoenix asking if he wants US to r/s pseusoaneurysm. Patient said the site is not red or warm to the touch. He has hx of hip replacement and thinks it's the ligament that used to swell when he was going through that. I advised the patient I would be in touch after hearing from Dr. Phoenix. documented in this encounter Plan of Treatment DateTypeDepartmentCare Team (Latest Contact Info)Kclvqonotes06/03/2025 11:20 AM ESTFollow-Up [facility] [address] [place] [address] Ling Hdz, [employer] [address] [place] [phone] documented as of this encounter Visit Diagnoses Not on filedocumented in this encounter Care Teams Team MemberRelationshipSpecialtyStart DateEnd Date Gutierrez Morton DO [address] [place] [phone] PCP - GeneralInternal Medicine08/20/24documented as of this encounter
--- OUTSIDE RECORDS SUMMARY | 2025-02-26 10:36 | XMS_ITS | Clinical Summary ---
Author Organization [facility] Address [address] [place] [address] Care Team Providers Care Cruise Coordinator Name Role Phone Gutierrez Morton Primary Care Provider [phone] Allergies Active AllergyReactionsCriticalityNoted DateCommentsDoxycyclineHives,RashLow 07/01/2018 Hives Latex1696BxdnlwibcfXxktsgl55/13/2023Sulfamethoxazole-TrimethoprimRash, YecovyoEfh88/26/2019 Rash CwjnymiijfnbEcddijm63/13/2023 Medications MedicationSigDispense QuantityRefillsLast FilledStart DateEnd DateStatus omeprazole [...] Indications:Corns and callositiesApply topically Daily 140 g 5007/08/2025ctive amiodarone (Pacerone) 200 MG tablet Take by mouth10/27/2024tive Eliquis 5 MG tablet Take 5 mg by mouth in the morning and 5 mg before bedtime.Active metoprolol succinate XL (Toprol-XL) 25 MG 24 hr tablet TAKE 1 TABLET (25 MG) BY MOUTH IN THE MORNING . DO NOT CRUSH OR CHEWActive Encounters DateTypeDepartmentCare XywpPqzzcnewawg94/25/2025 9:45 AM EDTOffice Visit [facility] [address] [place] [address] Morales Ramon DPM Corns and callosities (Primary Dx); Onychomycosis; Onychodystrophy; Right foot pain; Left foot pain11/30/2024amboo flowsheet [facility] [address] [place] [phone] Morales Ramon DPM 11/30/20249217Lauzei34/22/2025Travelfrom Last 3 Months Immunizations ImmunizationAdministration DatesNext DueDT [...] InformationValueDate RecordedSex Assigned at BirthNot on fileLegal ZuxBtst5506/20/2022 6:44 PM EDTGender Identity Not on fileSexual OrientationNot on file Last Filed Vital Signs Vital SignReadingTime TakenCommentsBlood Vneejxxi625/70004/21/2021 12:00 PM EST Pulse--Temperature--Respiratory Rate--Oxygen Saturation--Inhaled Oxygen Concentration--Vwmvnx134 kg (315 lb)11/30/2024 9:49 AM VGPUdzzar982.1 cm (6' 6 ) 11/30/2024 9:49 AM EDTBody Mass Index36. 9:49 AM EDT Plan of Treatment DateTypeDepartmentCare Team (Latest Contact Info)Vnnnwdrbmxz76/24/2025 11:00 AM ESTOffice Visit [facility] [address] [place] [phone] Morales Ramon, DPM [address] [place], [place] [phone] Insurance * Guarantor: Cain Kendall TypeRelation to PatientDate of BirthPhone Billing AddressPersonal/IbphshXrnj13/02/1951 [address] [place] [address] Care Teams Team MemberRelationshipSpecialtyStart DateEnd Date Gutierrez Morton, [address] [place] [address] PCP - GeneralInternal Kdrrfbmr91/13/23
--- OUTSIDE RECORDS SUMMARY | 2025-02-26 10:42 | XMS_ITS | CCD ---
Author Organization [facility] CliniSyfl Care Team Providers Care Astrobiologist Name Role Phone ADAM ANABEL WILLETTAH (RES) Attending Unavailable Reji Roy Unavailable DO Gutierrez Larry Primary Care Provider MD Reji Roy Attending Provider [phone] Reji Roy Admitting Unavailable Reji Roy Attending Unavailable Gutierrez Larry Primary Care Unavailable Reji Roy Admitting Unavailable Reji Roy Attending Unavailable Gutierrez Larry Primary Care Unavailable Kirill, Reji Tello Admitting Unavailable Reji Roy Attending Unavailable Gutierrez [...] GUTIERREZ LARRY Primary Care Unavailable CATHERINE AYOUB Attending Unavailable GUTIERREZ LARRY Referring Unavailable GUTIERREZ LARRY Primary Care Unavailable CATHERINE AYOUB P Attending Unavailable GUTIERREZ LARRY Referring Unavailable GUTIERREZ LARRY Primary Care Unavailable CATHERINE AYOUB P Attending Unavailable CATHERINE AYOUB P Referring Unavailable GUTIERREZ LARRY Primary Care Unavailable BALL, GUTIERREZ E Referring [...] Unavailable BALL, GUTIERREZ E Primary Care Unavailable Ball DO, Gutierrez Primary Care Provider Laron DOGutierrez Attending Provider [phone] Anu Cintron MD Attending Provider [phone] Roseanne Blanchard CMA Attending Provider Unavaila ble Ball DO, Gutierrez E Primary Care Provider MORALES RAMON Attending Unavailable RUSHER, MORALES S Attending Unavailable RUSHER, MORALES S Attending Unavailable RUSHER, MORALES S Attending Unavailable Ball DO, Gutierrez Primary Care Provider [phone] Laron DOGutierrez Attending Provider Joycelyn Kahn DO Attending Provider [phone] MAGDY QUICK Attending Unavailable YESSENIA HDZ Attending Unavailable CARLITO, BONAVENTURE Referring Unavailable MARIA EUGENIA, ALIS Referring Unavailable HAIM ALTAMIRANO Referring Unavailable MAGDY QUICK Admitting Unavailable MAGDY QUICK Attending Unavailable ANU CINTRON Referring Unavailable CARLITO, LIZZIE Admitting Unavailable ADRIANNE LUGOHAMMAD Attending Unavailable HAIM ALTAMIRANO Referring Unavailable RAMOS, MALIKA Referring Unavailable MAGDY QUICK Referring Unavailable MAGDY QUICK Referring Unavailable MAGDY QUICK Attending Unavailable Allergies Allergy ClassificationReported Allergen(s)Allergy TypeDate of OnsetReaction(s) Facility (20 sources)Doxycycline; Translations: [DOXYCYCLINE]Drug Cbopgxq63-37-8599[facility] ([facility] sources)predniSONE; Translations: [prednisone]Drug Xmaksyl88-19-5209[facility]nnk[facility] (6 sources)Sulfamethoxazole / TrimethoprimDrug AllergyBradley Hospital [employer] Other (20 sources)TetracyclineDrug Bjhilgy97-99-2772JghfonfIabqmveozFairfield Medical Center (10 sources)Sulfonamides (Antibiotic); Translations: [Sulfa (Sulfonamide Antibiotics)]Allergy to joswxylue89-66-6051SfzbZvennnoprMemorial Health System [facility] (1 source)DoxycyclineDrug Ygdpsvg79-67-1657JfacyptxsUniversity [facility] Repository (1 source)DoxycyclineDrug AllergyThe [facility] (1 source)Sulfamethoxazole / TrimethoprimDrug AllergyThe [facility] (1 source)Sulfonamides (Antibiotic)Drug allergy (disorder)[facility] Repository (1 source)corticosteroid and/or corticosteroid derivative (FN)Drug allergy UnknownVeterans Health Administration [employer] Other (1 source)patient allergy list reviewed by nurse or physiciaPropensity to adverse vxlqvulfn98-55-5161Hfklnnc:[facility] HospitalMust[facility] Other (7 sources)CorticosteroidsAllergy to ugznexmgj10-63-9998NrnqkaqTrinity Health [facility] (7 sources)SulfamethoxazoleDrug Ghpjwyf70-16-0047BkhgzqcThe [facility] (8 sources)Trimethoprim; Translations: [TRIMETHOPRIM]Drug Kjcghzz52-14-4470 [facility] (20 sources)Sulfamethoxazole / Trimethoprim; Translations: [SULFAMETHOXAZOLE-TRIMETHOPRIM]Drug Fosgncz80-34-0217Mmed, UnknownPro[facility] Repository (17 sources)LatexPropensity to adverse gscttotnx13-43-0021HrkgKFFG Healthcare (2 sources)natural latex rubber; Translations: [LATEX, NATURAL RUBBER]Propensity to adverse reactions to drug (disorder)32-71-7629ZlmYpvdjv Repository Medications Current Medications MedicationDrug Class(es)DatesSig (Normalized)Sig (Original)amiodarone hydrochloride 200 mg oral tablet (4 sources)AntiarrhythmicStart: 10-27-2024 End: 45-47-3783stgr 1 tablet by mouth once dailyAmiodarone 200 mg tablet Active 200 MG PO Daily December 03, 2024 12:00am Complies with drug therapyapixaban 5 mg oral tablet (6 sources)Factor Xa InhibitorStart: 44-74-1322dhzp 1 tablet by mouth twice dailyApixaban 5 mg tablet Active 5 MG PO Twice daily 60 August 23, 2024 12:00am Complies with drug therapyazithromycin 250 mg oral tablet (13 sources)Macrolide AntimicrobialStart: 21-09-1964omgv 1 tablet by mouth every other dayAzithromycin 250 mg tablet Active 250 MG PO .qod December 09, 2024 12:00am Complies with drug therapyStart: 08-28-2024 End: 80-98-7441nqon 2 tablets by mouth every other dayAzithromycin (Zithromax) 250 mg tablet Discontinued 250 MG PO .QOD August 28, 2024 12:00am October 9:02am start on day 2 of therapyStart: 07-28-2024 End: 54-36-8550ucvk 1 tablet by mouth every other dayAzithromycin 250 mg tablet Discontinued 250 MG PO .QOD July 28, 2024 12:00am August 23, 2024 6:35pmStart: 07-07-2020 End: 64-98-0935Cdchmelatbpr 250 MG as directed Orally daily for 5 days Jul, Activecholecalciferol 0.05 mg oral capsule (12 sources)Vitamin Dcholecalciferol (Vitamin D-3) 50 MCG (2000 UT) capsule 2,000 Units. ActivediazePAM 10 mg oral tablet (1 source)BenzodiazepineStart: 02-28-2024 End: 55-29-4922sgzh 1 tablet by mouth oncediazePAM (VALIUM) 10 mg tablet Indications: Pre-operative anxiety , Venous stasis ulcer of left ankle limited to breakdown of skin with varicose veins (CMS-HCC) Take 1 tablet (10 mg total) by mouth once for 1 dose. Take to office for procedure (Do not take until instructed by staff) 1 tablet 02/28/2024 02/28/2024 Activegentamicin 0.001 mg/mg topical ointment (16 sources)Start: 12-05-2023 End: 24-66-1618rtpnrcjszi (GARAMYCIN) 0.1 % ointment Indications: Venous stasis ulcer of left ankle limited to breakdown of skin with varicose veins (CMS-HCC) Apply topically once daily 15 g 02/14/2024 02/26/2024 Discontinued (Therapy completed)24 hr metoprolol succinate 25 mg extended release oral tablet (6 sources)beta-Adrenergic BlockerStart: 49-96-1472rsla 1 tablet by mouth once dailyMetoprolol Succinate 25 mg tablet extended release 24 hr Active 25 MG PO Daily August 232:00am Complies with drug therapytake 1 tablet by mouth every twenty-four hours in the morningmetoprolol succinate XL (Toprol-XL) 25 MG 24 hr tablet TAKE 1 TABLET (25 MG) BY MOUTH IN THE MORNING . DO NOT CRUSH OR CHEW ActiveMisc Natural Products (PROSTATE SUPPORT PO) (12 sources)Misc Natural Products (PROSTATE SUPPORT PO) Take by mouth Active Neuriva (8 sources)Start: 66-35-6483ytdp 1 capsule by mouth once daily at bedtimeNeuriva Active 1 CAP PO Daily at bedtime October 12, 2019 12:00am Complies with drug therapyStart: 07-65-8921xnhg 1 capsule by mouth once daily at bedtimeNeuriva Active 1 CAP PO Daily at bedtime October 12, 2019 12:00amStart: 23-74-1000sbfe 1 capsule by mouth once daily at bedtimeNeuriva Active 1 CAP PO Daily at bedtime October 11, 2019 11:00pmpredniSONE 20 mg oral tablet (2 sources)Start: 20-91-2632Ifrwwoyazt 20 mg tablet Active 20 MG PO As Directed December 03, 2024 12:00am 1 tab tid w/ food x 3 days, then bid w/ food x 3 days, then qd w/ food x 3 days Complies with drug therapyPrevagen (6 sources)Prevagen ActivetiZANidine 4 mg oral tablet (19 sources)Central alpha-2 Adrenergic AgonistStart: 08-96-6793gbyd 1 tablet by mouth once daily at bedtime as neededTizanidine 4 mg tablet Active 4 MG PO Daily at bedtime as needed for muscle spasticity 02 04September 16, 2023 12:00am Complies with drug therapytriamcinolone acetonide 1 mg/ml topical cream (9 sources)CorticosteroidStart: 02-19-2024 End: 60-27-8971atvmlxbgvwgzd (KENALOG) 0.1 % cream Indications: Venous stasis ulcer of left ankle limited to breakdown of skin with varicose veins ([facility]-H[facility]) Once daily application, apply a thin layer daily to left lower leg 30 g 02/19/2024 04/10/2024 Discontinued (Therapy completed)Start: Application, topical, As needed, irritation, Starting on Sat02/19/24 at 0842, Apply to affected area.Start: 02-05-2024 End: Application, topical, As needed, irritation, Starting on Sat02/05/24 at 0841, Apply to affected area.Start: Application, topical, As needed, irritation, Starting on Sat01/22/24 at 0832, Apply to affected area. Completed/Discontinued Medications MedicationDrug Class(es)DatesSig (Normalized)Sig (Original)acetaminophen 325 mg / oxyCODONE hydrochloride 5 mg oral tablet (8 sources)Opioid AgonistStart: 02-19-2019 End: 84-85-7406pykj 2 tablets by mouth every six hours as needed for pain Oxycodone-Acetaminophen 5-325 mg tablet Discontinued 2 TAB PO Q6H as needed for Pain February 1:00am March 04, 2019 10:19amamoxicillin 500 mg oral capsule (12 sources)Penicillin-class AntibacterialStart: 02-13-2024 End: 16-67-2954Kqkjvcvhbpp 500 mg capsule Discontinued 2000 MG PO As Directed February 19, 2024 1:29pm July 27, 2024 10:00pmbetamethasone 0.0005 mg/mg topical ointment (1 source)CorticosteroidStart: 07-07-2020 End: 42-05-6923gqdiwdiazrioz dipropionate (DIPROLENE) 0.05 % ointment APPLY TO AFFECTED AREA OF ITCHY SKIN TWICE ADAY 07/07/2020 12/04/2023 Discontinued (Therapy completed)cephalexin 500 mg oral capsule (16 sources)Cephalosporin AntibacterialStart: 10-19-2019 End: 15-16-8490gouh 1 capsule by mouth every eight hours as neededCephalexin (Keflex) 500 mg capsule Discontinued 500 MG PO Q8H as needed for eczema flair January 25, 2020 5:09pm May 22, 2021 4:10pmcoffee/theanine/superoxide dis (NEURIVA DE-STRESS ORAL) (1 source) End: 38-46-1454bgqyke/theanine/superoxide dis (NEURIVA DE-STRESS ORAL) Take by mouth. 12/04/2023 Discontinued (Therapy completed)cyclobenzaprine hydrochloride 10 mg oral tablet (8 sources)Muscle RelaxantStart: 03-04-2019 End: 87-06-5236otun 1 tablet by mouth three times daily as needed for muscle spasmsCyclobenzaprine 10 mg tablet Discontinued 10 MG PO Three times daily as needed for back spasms 50 March 04, 2019 1:00am September 10, 2019 11:14am ammonium lactate 120 mg/ml topical cream (10 sources)Start: 07-28-2024 End: 75-71-1219Crcjqtmm Lactate 12 % cream Discontinued APPLIC TOPICAL July 28, 2024 12:00am August 28, 2024 9:25amStart: 2024 End: 85-89-6985xoknfcbr lactate (Amlactin) 12 % cream Indications: Corns and callosities Apply topically Daily 140g 3 2024 2025 Active Lactobacillus Comb No.10 (Probiotic) 20 billion cell Capsule (8 sources)Start: 02-19-2019 End: 79-35-1074azml 1 tablet by mouth once dailyLactobacillus Comb No.10 (Probiotic) 20 billion cell Capsule Discontinued 1 TAB PO Daily February 19, 2019 1:00am September 10, 2019 11:15am Digestive AdvantageStart: 02-19-2019 End: 42-06-2764ruux 1 tablet by mouth once dailyLactobacillus Comb No.10 (Probiotic) 20 billion cell Capsule Discontinued 1 TAB PO Daily February 19, 2019 12:00am September 10, 2019 10:15am Digestive Advantagelidocaine 25 mg/ml / prilocaine 25 mg/ml topical cream (1 source)Antiarrhythmic, Amide Local AnestheticStart: 12-18-2023 End: Application, topical, Once, On Sat12/18/23 at 0930, For 1 dose, If no allergy, apply topically towounds with each wound care appointment with practitioner for pain control.melatonin 5 mg chewable tablet (20 sources)Start: 02-19-2019 End: 67-56-4109elln 2 tablets by mouth at bedtime as needed for sleepMelatonin 5 mg Tablet,Chewable Discontinued 10 MG PO Bedtime as needed for Sleep February 19, 2019 1:00am September 16, 2023 10:10amStart: 02-19-2019 End: 29-33-3917piax 2 tablets by mouth at bedtime as needed for sleepMelatonin 5 mg Tablet,Chewable Discontinued 10 MG PO Bedtime as needed for Sleep February 19, 2019 1:00am September 16, 2023 10:10amStart: 02-19-2019 End: 81-71-7372vbns 10 mg by mouth at bedtimeMelatonin Discontinued 10 MG PO Bedtime February 19, 2019 1:00am September 16, 2023 10:10ammelatonin 5 mg tablet,chewable Chew and swallow. Activeminocycline 100 mg oral capsule (20 sources)Tetracycline-class DrugStart: 06-10-2023 End: 47-08-5950hseo 1 capsule by mouth once dailyMinocycline 100 mg capsule Discontinued 0 .ROUTE .COMPLEX December 05, 2023 9:58am July 28, 2024 10:57am TAKE 1 CAPSULE BY MOUTH EVERY DAYStart: 34-41-8093cnbt 1 capsule by mouth once dailyMinocin 100 MG 1 capsule Orally daily for 30 days May, ActiveStart: 05-22-2021 End: 92-53-7049bioy 1 capsule by mouth twice dailyMinocycline 100 mg capsule Discontinued 100 MG PO Twice daily May 22, 2021 1:00am June 1:37pmMultivitamin preparation (2 sources)Start: 09-10-2019 End: 65-96-5940cyej 1 tablet by mouth once dailyMultivitamin Discontinued 1 TAB PO Daily September 10, 2019 12:00am January 25, 2020 5:08pmStart: 09-10-2019 End: 02-96-3797zoga 1 tablet by mouth once dailyMultivitamin Discontinued 1 TAB PO Daily September 09, 2019 11:00pm January 25, 2020 4:08pmMultivitamin Tablet,Chewable (6 sources)Start: 09-10-2019 End: 35-39-5368iyhg 1 tablet by mouth once dailyMultivitamin Tablet,Chewable Discontinued 1 TAB PO Daily September 10, 2019 12:00am January 25, 2020 5:08pm omeprazole 40 mg delayed release oral capsule (20 sources)Proton Pump InhibitorStart: 05-23-2021 End: 31-76-5597lrml 1 capsule by mouth once dailyOmeprazole 40 mg capsule,delayed release(DR/EC) Discontinued 40 MG PO Daily 90 90 June 12, 2023 4:07pm August 04, 2024 8:47amtake 1 capsule by mouth once daily before breakfastomeprazole (PriLOSEC) 10 mg capsule Take 1 capsule (10 mg total) by mouth every morning before breakfast. ActiveoxyCODONE hydrochloride 5 mg oral capsule (16 sources)Opioid AgonistStart: 10-19-2019 End: 52-68-4515taep 5-10 mg by mouth every six hours as needed for painOxycodone 5 mg capsule Discontinued 5 - 10 MG PO Q6H as needed for pain 30 8 October 19, 2019 May 22, 2021 4:10pmStart: 03-04-2019 End: 60-14-2925grqg 5-10 mg by mouth every six hours as needed for painOxycodone 5 mg capsule Discontinued 5 - 10 MG PO Q6H as needed for pain 60 8 March 04, 2019 September 10, 2019 11:15am Problems Active Problems Problem ClassificationProblemDateDocumented DateEpisodic/ChronicAcute bronchitis (2 sources)Acute bronchitis due to other specified organisms; Translations: [Acute bronchitis]EpisodicAllergic reactions (6 sources)Atopic dermatitis; Translations: [Other atopic dermatitis]Chronic Allergic reactions (3 sources)Nummular eczema; Translations: [Nummular dermatitis]Onset: 07-11-2018 90-55-8823ObvunrpfNdsfcab disorders (1 source)Anxiety about treatment; Translations: [Generalized anxiety disorder] 63-60-7971MgegvagMwkdsyun of urinary tract (3 sources)Ureteric stone; Translations: [Calculus of ureter]Onset: 10-22-2018 EpisodicCardiac dysrhythmias (20 sources)Atrial flutter; Translations: [Unspecified atrial flutter]Onset: 912841-60-4421CyvqeemGkyfsid on above:Holter: 07/2024- fastest rate 211, slowest rate 40- Ventricular ectopy burden < 1%- 9 episodes ofVT w/ longest duration of 10 beats- SVE burden of 6%- 1,158 PSVT w/ fastest rate 211 bpm and longest duration 6min 11sec.s/p Ablation - 08/2024,CHADs VASc - 2 (age, HTN),Stress test: Lexiscan w/o EKG changes - 09/2024,Stress NM imaging: no reversible defect, LVEF 50%, no TID - 09/2024Holter: 07/2024- fastest rate 211, slowest rate 40- Ventricular ectopy burden < 1%- 9 episodes ofVT w/ longest duration of 10 beats- SVE burden of 6%- 1,158 PSVT w/ fastest rate 211 bpm and longest duration 6min 11sec.Stress test: Lexiscan w/o EKG changes - 09/2024 Cardiac dysrhythmias (9 sources)Palpitations; Translations: [Palpitations]67-68-7016ThjinmrmOwzasss ulcer of skin (7 sources)Ankle ulcer; Translations: [Ulcer of ankle]Onset: 04-10-2018 05-46-7940UkvckqjGewxrmbaua associated with dizziness or vertigo (3 sources)Benign paroxysmal positional vertigo; Translations: [Benign paroxysmal vertigo, bilateral]Onset: 01-87-5561MkhupxcuCtmmmpxsyf and other anemia (1 source)Chronic anemia; Translations: [Anemia in other chronic diseases classified elsewhere]ChronicDeficiency and other anemia (6 sources)Anemia; Translations: [Anemia, unspecified]20-20-4935MnapadgpWdxjxkyq mellitus without complication (6 sources)Impaired fasting glucose; Translations: [Impaired fasting glycemia] Onset: 54-17-2240SsqgugzbWjuakmdrt of lipid metabolism (5 sources)Pure hypercholesterolemia; Translations: [Pure hypercholesterolemia, unspecified]Onset: 083505-17-8347AraxpazD Codes: Adverse effects of medical drugs (2 sources)Adverse reaction to drug; Translations: [Adverse effect of unspecified drugs, medicaments and biological substances, initial encounter] 40-29-5417PkypfvelAudxmwhrzq disorders (20 sources)Stricture of esophagus; Translations: [Esophageal obstruction]Onset: 75-76-9551YabicwjAhamlhorrl disorders (6 sources)Esophagitis; Translations: [Esophagitis]EpisodicEsophageal disorders (1 source)Esophageal disorders; Translations: [Gastro-esophageal reflux disease with esophagitis, without bleeding]Essential hypertension (11 sources)Hypertensive disorder; Translations: [Essential (primary) hypertension]Onset: 872290-53-1833ApivjmlTtyymleybxyhm symptoms and ill- defined conditions (5 sources)Nocturia; Translations: [Nocturia]EpisodicHyperplasia of prostate (20 sources)Nocturia due to benign prostatic hypertrophy; Translations: [Benign prostatic hyperplasia with lower urinary tract symptoms]Onset: 09-83-3920Omqtmwz Miscellaneous mental health disorders (1 source)Psychosexual dysfunction associated with inhibited sexual excitement; Translations: [Psychosexual dysfunction with inhibited sexual excitement]Onset: 74-94-8132TshqtshXemwefq (8 sources)Onychomycosis; Translations: [Tinea unguium]47-95-9018Bwumqvyh Osteoarthritis (16 sources)Localized, primary osteoarthritis of the wrist; Translations: [Primary osteoarthritis, right wrist]Onset: 05-76-6102FxkfsbmPcdluvxkhbcu (6 sources)Senile osteoporosis; Translations: [Age-related osteoporosis without current pathological fracture]ChronicOther acquired deformities (6 sources)Lumbar spondylolisthesis; Translations: [Spondylolisthesis, lumbar region]EpisodicOther aftercare (2 sources)Other residential (current) drug therapy; Translations: [OTH INTERMEDIATE CURRENT DRUG THERAPY]Onset: 49-26-2696EvjfqvwlUzump circulatory disease (5 sources)Elevated blood-pressure reading without diagnosis of hypertension; Translations: [Elevated blood-pressure reading, without diagnosis of hypertension]19-75-3932QxlziebzOgkjaur on above:Echo: LVEF 55%, BARRY, enlarged RV w/ normal function, RVSP 41 - 08/2024Other circulatory disease (1 source)Elevated blood-pressure reading, without diagnosis of hypertension; Translations: [Elevated blood pressure reading without diagnosis of hypertension]27-03-9477OfdeajejGafco connective tissue disease (6 sources)History of repair of hip joint; Translations: [Presence of artificial hip joint, bilateral]ChronicOther connective tissue disease (1 source)Artificial knee joint present; Translations: [Presence of left artificial knee joint]ChronicOther connective tissue disease (19 sources)History of total hip arthroplasty; Translations: [Presence of artificial hip joint, bilateral]Onset: 565295-64-9650TqulzuhSwklr connective tissue disease (19 sources)History of total knee arthroplasty; Translations: [Presence of artificial knee joint, bilateral]Onset: 009087-81-0586VadeefxTinug connective tissue disease (6 sources)Neurogenic pain; Translations: [Neuralgia and neuritis, unspecified] EpisodicOther connective tissue disease (1 source)Muscle wasting and atrophy, not elsewhere classified, left lower leg; Translations: [Muscle wastingand atrophy, not elsewhere classified, left lower leg]EpisodicOther connective tissue disease (1 source)Disorder of soft tissue; Translations: [Other specified soft tissue disorders]EpisodicOther connective tissue disease (8 sources)Pain in right foot; Translations: [Pain in right foot]02-17-2024 EpisodicOther connective tissue disease (4 sources)Pain in left foot; Translations: [Pain in left foot]2024 EpisodicOther connective tissue disease (3 sources)Muscle weakness of limb; Translations: [Other symptoms and signs involving the musculoskeletal system]11-89-8134SqvzitcbWjbrx diseases of veins and lymphatics (1 source)Venous ulcer of lower extremity due to chronic peripheral venous hypertension; Translations: [Chronic venous hypertension with ulcer]Onset: 71-01-1076SqoywnyDlkau diseases of veins and lymphatics (6 sources)Stasis dermatitis; Translations: [Venous insufficiency (chronic) (peripheral)]EpisodicOther diseases of veins and lymphatics (14 sources)Venous insufficiency of leg; Translations: [Venous insufficiency (chronic) (peripheral)]Onset: 516240-79-0926MszutxxrJyikz ear and sense organ disorders (1 source)Otitis externa of right ear; Translations: [Other otitis externa, right ear]ChronicOther ear and sense organ disorders (1 source)Sensorineural hearing loss, bilateral; Translations: [Sensorineural hearing loss, bilateral]ChronicOther ear and sense organ disorders (1 source)Hearing loss; Translations: [Unspecified hearing loss, bilateral] Onset: 19-21-2840LkxfuugNrrqw ear and sense organ disorders (1 source)Impacted cerumen; Translations: [Impacted cerumen, right ear]Episodic Other gastrointestinal disorders (14 sources)Dysphagia; Translations: [Dysphagia, unspecified]28-50-2111Bueojetr Comment on above:Problem List clean-up per request of Phys. EHR CmteOther infections; including parasitic (1 source)H/O: infectious disease; Translations: [Personal history of other infectious and parasitic diseases]EpisodicOther inflammatory condition of skin (6 sources)Rosacea; Translations: [Rosacea, unspecified]Onset: 62-48-8222Lyglncc Other inflammatory condition of skin (1 source)Rosacea, unspecifiedChronicOther inflammatory condition of skin (2 sources)Pruritic rash; Translations: [Pruritic erythematous rash]12-03-2024 EpisodicOther injuries and conditions due to external causes (1 source)History of fall; Translations: [History of falling]EpisodicOther male genital disorders (2 sources)Impotence of organic origin; Translations: [Impotence of organic origin]Onset: 48-07-4317VlxqioyNtasx nervous system disorders (6 sources)Polyneuropathy; Translations: [Polyneuropathy, unspecified]Chronic Other nervous system disorders (6 sources)Superficial peroneal neuropathy; Translations: [Lesion of lateral popliteal nerve, unspecified lower limb]ChronicOther nervous system disorders (1 source)Femoral neuropathy; 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] Onset: 60-82-4601SorqjohJchpq nervous system disorders (6 sources)Peripheral nerve disease ; Translations: [Polyneuropathy, unspecified]25-96-4647QayegdhKsyvj nervous system disorders (6 sources)Unsteady gait; Translations: [Unsteadiness on feet]EpisodicOther nervous system disorders (6 sources)Paresthesia; Translations: [Paresthesia of skin]EpisodicOther nutritional; endocrine; and metabolic disorders (5 sources)Body mass index 30+ - obesity; Translations: [Obesity, unspecified] Onset: 06-78-7530LgnhjfzOtefz nutritional; endocrine; and metabolic disorders (2 sources)Obesity, unspecified; Translations: [Obesity, unspecified]Chronic Other nutritional; endocrine; and metabolic disorders (1 source)Simple obesity ; Translations: [Other obesity due to excess calories] Onset: 56-31-1254RacjpliRcwmk nutritional; endocrine; and metabolic disorders (20 sources)Obesity; Translations: [Obesity, unspecified]Onset: 12-04-2023 88-21-0502CaitltoRugiz nutritional; endocrine; and metabolic disorders (1 source)Morbid obesity; Translations: [Morbid (severe) obesity due to excess calories]Onset: 49-51-2629EagovzaRkukd nutritional; endocrine; and metabolic disorders (2 sources)Obese class I; Translations: [Body mass index 33.0-33.9, adult]Onset: 55-18-5235LrrjhfkJrvao nutritional; endocrine; and metabolic disorders (1 source)Obese class II; Translations: [Body mass index 35.0-35.9, adult]Onset: 25-25-2825GeofrbqQapvs screening for suspected conditions (not mental disorders or infectious disease) (19 sources)Encounter for screening for malignant neoplasm of prostate; Translations: [Patient encounter status]Onset: 89-93-6037ZzokadwlXlptkzf on above:PSA: 2.02 - 05/2022, 2.19 - 10/2024Other skin disorders (8 sources)Callosity; Translations: [Corns and callosities]73-38-7198Rjzppccg Other skin disorders (1 source)Rash and other nonspecific skin eruption; Translations: [Rash and other nonspecific skin eruption]Onset: 87-83-7045ArzqnyjuSnyvi skin disorders (4 sources)Dystrophia unguium; Translations: [Nail dystrophy]72-49-2140Cjoxbhiu Other upper respiratory disease (1 source)Allergic rhinitis; Translations: [Allergic rhinitis, unspecified] Onset: 82-42-5143HxxcokkCmrww upper respiratory infections (1 source)Acute sinusitis; Translations: [Acute sinusitis, unspecified]Episodic Peripheral and visceral atherosclerosis (1 source)Vascular disease of the skin; Translations: [Vascular disorder of skin]Onset: 16-93-6172LyopeqqDrpeevei codes; unclassified (20 sources)Obstructive sleep apnea syndrome; Translations: [Obstructive sleep apnea (adult) (pediatric)]Onset: 220530-87-6779QrkzjxcLnpviqwn codes; unclassified (4 sources)Obstructive sleep apnea (adult) (pediatric); Translations: [Obstructive sleep apnea (adult)(pediatric)]47-85-3351RvnpknuZxdsdnaf codes; unclassified (1 source)Preventive procedure; Translations: [Encounter for other specified prophylactic measures]EpisodicSpondylosis; intervertebral disc disorders; other back problems (20 sources)Lumbar spondylosis; Translations: [Spondylosis without myelopathy or radiculopathy, lumbar region]Onset: 35-80-7676IynlvykZrwfphkdiex; intervertebral disc disorders; other back problems (20 sources)Spinal stenosis of lumbar region; Translations: [Spinal stenosis, lumbar region without neurogenic claudication]Onset: EpisodicComment on above:Problem List clean-up per request of Phys. EHR Cmte Systemic lupus erythematosus and connective tissue disorders (1 source)Disorder of connective tissue; Translations: [Systemic involvement of connective tissue, unspecified]Onset: 98-17-8134TfecknkTueenwzornfe (1 source)Encounter for screening for malignant neoplasm of colon; Translations: [Encounter for screening formalignant neoplasm of colon]Onset: 05-09-2022 Unclassified (1 source)R13.10 - Dysphagia, unspecified; Translations: [R13.10 - Dysphagia, unspecified]Onset: 01-79-9220Cxwwnsthjquw (1 source)Z01.812 - Encounter for preprocedural laboratory examination; Translations: [Z01.812 - Encounter for preprocedural laboratory examination] Onset: 26-09-9070Shktmdenaaza (1 source)Varicose VeinsOnset: 39-86-9390Jpmpzfvxvbcs (1 source)Dressing ChangeOnset: 73-23-9269Tlzdgzymkllb (1 source)Wound CheckOnset: 57-40-6452Fazkixkukafy (1 source)Ventricular tachycardia, unspecified; Translations: [Ventricular tachycardia, unspecified]Onset: 08-20-2024 Past or Other Problems Problem ClassificationProblemDateDocumented DateEpisodic/ChronicAbdominal pain (1 source)Left lower quadrant pain; Translations: [Left lower quadrant pain] Onset: 42-10-4289XaucdfepAaecpaww foot deformities (20 sources)Left foot drop; Translations: [Foot drop, left foot]Onset: 164128-54-4346JddaaxmeQegrcgeh foot deformities (20 sources)Bilateral foot drop; Translations: [Foot drop, right foot]Onset: 66-70-930210816639-61-2798NqlomakjBcwmmbamd infection; unspecified site (1 source)Bacterial infectious disease; Translations: [Bacterial infection, unspecified, in conditions classified elsewhere and of unspecified site]Onset: 86-59-9166ZxpblibxZtbidjcnzf and other anemia (4 sources)Anemia, unspecified; Translations: [ANEMIA UNSPECIFIED]Onset: 04-68-9901FuthhyvoLndkiosqbmtvvnqe hemorrhage (1 source)Hemorrhage of rectum and anus; Translations: [Hemorrhage of rectum and anus]Onset: 40-34-0322ZkldwyafNspmcanejtdo; infection of eye (except that caused by tuberculosis or sexually transmitteddisease) (1 source)Conjunctivitis; Translations: [Unspecified conjunctivitis]Onset: 05-46-5852QceupbueOceniir and fatigue (3 sources)Other fatigue; Translations: [Malaise and fatigue]Onset: 05-15-2016 EpisodicOpen wounds of extremities (1 source)Unspecified open wound, right lower leg, subsequent encounter; Translations: [Unspecified open wound, right lower leg, subsequent encounter] Onset: 29-47-6175UkbefcydLirm wounds of extremities (1 source)Open wound of lower leg with complication; Translations: [Unspecified open wound, left lower leg, subsequent encounter]17-66-0810GkbjtncvGginp connective tissue disease (4 sources)Trigger finger, right index finger; Translations: [TRIGGER FINGER RIGHT INDEX FINGER]Onset: 60-91-0507AclrlgthTffrn connective tissue disease (1 source)Muscle weakness; Translations: [Muscle weakness (generalized)]Onset: 87-67-2999MiszpybsRkeem connective tissue disease (1 source)Disuse muscle atrophy; Translations: [Muscular wasting and disuse atrophy, not elsewhere classified]Onset: 46-05-4503OmteievwPvxdp connective tissue disease (1 source)Musculoskeletal symptom; Translations: [Other musculoskeletal symptoms referable to limbs]Onset: 22-73-3893EyxikrgyIhldc connective tissue disease (19 sources)Tendinitis of left psoas tendon; Translations: [Psoas tendinitis, left hip]Onset: 184302-81-2129PldztgdgLtxcs diseases of kidney and ureters (1 source)Hydronephrosis with renal and ureteral calculous obstruction; Translations: [Hydronephrosis with renal and ureteral calculous obstruction] Onset: 82-58-4582BykmhrwlAjpns diseases of veins and lymphatics (1 source)Peripheral venous insufficiency; Translations: [Unspecified venous (peripheral) insufficiency]Onset: 55-56-9070GhticcdyXxcpv diseases of veins and lymphatics (1 source)Venous insufficiency (chronic) (peripheral); Translations: [Venous insufficiency (chronic) (peripheral)]Onset: 80-18-6042SgyncowzGtxgj diseases of veins and lymphatics (3 sources)Ankle ulcer; Translations: [Venous insufficiency (chronic) (peripheral)]61-96-5481PouwqycjTboeu gastrointestinal disorders (1 source)Other specified symptoms and signs involving the digestive system and abdomen; Translations: [Oth symptoms and signs involving the dgstv sys and abdomen]Onset: 63-57-0654NbfgwkfoWmicw gastrointestinal disorders (1 source)Pharyngeal dysphagia; Translations: [Dysphagia, pharyngoesophageal phase]Onset: 28-81-3761BgphlpewGbexr injuries and conditions due to external causes (1 source)Traumatic injury; Translations: [Injury, other and unspecified, unspecified site]Onset: 04-27-2049JlolpgbeRjjca lower respiratory disease (1 source)Breathing painful; Translations: [Painful respiration]Onset: 57-30-5491LnhdwxnnTuqsj lower respiratory disease (2 sources)Other forms of dyspnea; Translations: [Other forms of dyspnea]Onset: 54-28-9625UjsswcesGqqcu non-traumatic joint disorders (1 source)Shoulder joint pain; Translations: [Pain in unspecified shoulder] Onset: 89-22-8907GyupeizuByxfm skin disorders (1 source)Eruption; Translations: [Rash and other nonspecific skin eruption] Onset: 90-65-7612EgiopzdxOcwbl skin disorders (1 source)Folliculitis; Translations: [Follicular disorder, unspecified]Onset: 15-39-5625VmtushnaSmryehjdw; thrombophlebitis and thromboembolism (2 sources)Phlebitis; Translations: [Phlebitis and thrombophlebitis of unspecified site]72-50-6160RlglgzsmXdatvzon codes; unclassified (1 source)Family history of malignant neoplasm of digestive organsOnset: 12-26-2021 Resolved: 32-05-6239AhwbjhntJxdinfsx codes; unclassified (1 source)Pain; Translations: [Pain, unspecified] Resolved: 69-18-2507JabkthnnYqmoauly codes; unclassified (1 source)Family history of malignant neoplasm of gastrointestinal tract; Translations: [Family history of malignant neoplasm of digestive organs]Onset: 24-06-9582EleklyghTongqygq codes; unclassified (1 source)Symptom: generalized; Translations: [Other general symptoms and signs] Onset: 25-61-9102HvaqzggoCmfchjvu codes; unclassified (1 source)Localized edema; Translations: [Localized edema]Onset: 12-04-2023 EpisodicResidual codes; unclassified (4 sources)Edema of left lower leg; Translations: [Localized edema]12-04-2023 EpisodicScreening and history of mental health and substance abuse codes (1 source)History of tobacco use; Translations: [Personal history of tobacco use, presenting hazards to health]Onset: 24-32-6387SoipagfoHubz and subcutaneous tissue infections (2 sources)Cellulitis and abscess of lower leg; Translations: [Cellulitis and abscess of leg, except foot]Onset: 31-56-8210GyganexfUaugosgbosf injury; contusion (1 source)Abrasion, ankle; Translations: [Abrasion, left ankle, initial encounter]Onset: 64-65-0585MdwrmuvuMzbqvxmmdohx (1 source)Suspected COVID-19 virus infection Z20.822Unclassified (1 source)Ventricular tachycardia, unspecified; Translations: [Ventricular tachycardia, unspecified]Onset: 12-73-1938Ktvzhrtd veins of lower extremity (20 sources)Varicose veins of left lower extremity with ulcer of ankle; Translations: [Ankle ulcer]Onset: 994298-79-1995KjyilsumVhtcz infection (1 source)Viral disease; Translations: [Other specified diseases due to viruses] Onset: 29-80-1019Dmtosrnn Results Test NameValueInterpretationReference RangeFacilityOrders Onlyon 02-13-2025 Orders [id number] Rebeca Nicole 1950 M Date Provider Department Center 02/13/2025 [facility] None Family History Family Status - Relation Status Age at Mother Father DeceasedNormalUniWooster Community HospitalANESon 16-49-3107ZWOC Attestation signed by Tono Martinez MD at 02/11/2025 1:47 PM I interviewed and examined the patient; I reviewed his medical record. I attest to this anesthesia preprocedural evaluation. Patient: Rebeca Nicole Procedure Information Anesthesia Start Date/Time: 02/11/25 1214 Procedure: Ablation a-fib w/ pvi - AUDIT COMPLETE 10/30 lb Location: [facility] 1 EP / [facility] (Cath[facility] Providers: Magdy Quick MD Relevant Problems Anesthesia (+) ALEXANDRA (obstructive sleep apnea) Cardio (+) Atrial flutter (CMS/HCC) (+) HTN (hypertension) (+) Paroxysmal atrial fibrillation (CMS/HCC) Endo Glucose 96 GI (+) GERD (gastroesophageal reflux disease) Endocrine/Metabolic (+) Morbid obesity (CMS/HCC) Echo 08/22/24: Left Ventricle: Global left ventricular systolic function is normal. The EF is 55 % visually. Right Ventricle: The right ventricle is mildly enlarged. Right ventricular systolic function appears normal. Pericardium: No pericardial effusion. Overall Conclusions: Limited study was performed as ordered no Doppler interrogation of the valves performed. Lexiscan 09/14/24: Normal myocardial perfusion stress test without evidence of ischemia or infarction. Encounter Date: 02/11/25 Electrocardiogram, 12-lead Result Value Ventricular Rate 62 Atrial Rate 62 LA Interval 172 QRS DURATION 110 QT Interval 460 QTC CALCULATION(BAZETT) 466 P [place] 76 R-[place] -17 T Wave [place] 38 Impression Normal sinus rhythm Normal ECG When compared with ECG of 21-AUG-2024 16:33, No significant change was found Clinical information reviewed: Tobacco Allergies Meds Problems Med Hx Surg Hx Fam Hx Soc Hx Physical Exam Airway Mallampati: II TM distance: >3 FB Neck ROM: full Cardiovascular Rhythm: irregular Dental - normal examComments: No loose, chipped or missing teeth Pulmonary - normal exam Neurological Abdominal (+) obese Anesthesia Plan ASA 3 general (GETA with standard ASA monitoring, arterial line) The patient is not a current smoker. Patient was previously instructed to abstain from smoking on day of procedure. Patient did not smoke on day of procedure. intravenous induction Postoperative pain plan includes opioids. Trial extubation is planned. Anesthetic plan and risks discussed with patient. Use of blood products discussed with patient who consented to blood products. Plan discussed with attending. Additional Equipment RequestsNormalUniversity of Bellville Medical CenterBILIRUBIN, DIRECTon 72-99-9065Cijuxinbv [Mass/Vol]0.1 mg/dLNormal0-0.2UnTriHealth Bethesda Butler HospitalComment on above:Performed By: #### [id number] #### [facility] ([facility]) [address], [place] [address]MWDEQEPVC, TOTALon 04-31-2794Awjjejsaj [Mass/Vol]0.5 mg/dLNormal 0.3-1.0UnTriHealth Bethesda Butler HospitalComment on above:Performed By: #### [id number] #### [facility] ([facility]) [address], [place] [address]KXPPMHVOIEjw 39-62-5043Akfkpjvabf (Bld) [Mass/Vol]11.7 g/dLLow 13.0-17.0UnTriHealth Bethesda Butler HospitalComment on above:Performed By: #### [id number] ####[facility] ([facility])[address] [place], [place] [address]FFDA SENSITIVITY TROPONIN Ion 21-40-3601KA TROPONIN I (NG/L)81 ng/LCritically high<20 [facility] Community HospitalComment on above:Performed By: #### [id number] #### [facility] ([facility]) [address] [place] [place], [place] [address]YWwe 65-13-7694IDHM Electrophysiology Consult Note ME Cardiology [facility] Reason for visit: s/p flutter ablation 02/11/25 Pt here for Afib ablation. 02/02/2025 Patient is here to discuss about A-fib ablation. He is currently maintaining sinus rhythm on amiodarone. He has difficulty tolerating CPAP machine HPI: Rebeca Nicole is a 74 y.o. 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 He was admitted to the hospital and at that time was noted to have atrial flutter with ventricular rate of 150 beats a minute. At that time he was seen by me as a part of inpatient consult and then taken for flutter ablation on 08/21/2024. He was noted to be in atrial flutter with a cycle length of 280 ms. During ablation the tachycardia terminated. Bidirectional block was noted although the exact number was not mentioned in the report. Patient was subsequently discharged and then seen by Jaymie Douglas who had placed an event monitor. Event monitor revealed apparent episodes of atrial fibrillation as seen on August 30, 2024 PMH: Medical History[1] PSH: Surgical History[2] SH: Social Drivers of Health Tobacco Use: Medium Risk (02/10/2025) Patient History Smoking Tobacco Use: Former Smokeless [...] Year: No Utilities: Not At Risk (08/20/2024) [facility] Utilities Threatened with loss of utilities: No Health Literacy: Not on file Allergies: Allergies[3] Weight: 149kg Visit Vitals Smoking Status Former Meds: Medications Ordered Prior to Encounter[4] ROS: Cardio Basic Cardiovascular Symptoms: no lightheadedness, [...] no headaches Psychiatric Psych: no depression, feeling safe in relationship, no alcohol abuse, Hematologic/Lymphatic Hematologic/Lymphatic no swollen glands, no bruising Physical Exam: Constitutional General Appearance: well-nourished, well-developed, appears stated age Level of Distress: comfortable Eyes TRAV Neck Neck: supple, trachea midline Carotid Arteries: bilateral normal upstroke, no bruits Jugular Veins: normal jugular venous pressure Thyroid: not enlarged Lungs Respiratory Effort: unlabored Chest Exam: normal curvature, no thoracic deformity Auscultation: clear, no wheezing, no rales, no rhonchi Cardiovascular Chest wall: Rate And Rhythm: regular Heart Sounds: normal S1, normal s2, no gallop Systolic Murmur: not heard Diastolic Murmur: not heard Extremities: no cyanosis, no edema, no peripheral signs of emboli Peripheral Pulses Radial Pulse: normal Abdomen Inspection and Palpation: soft, non distended, no bruit, non tender Neurologic Gait: normal gait Labs: @LABRESULTS@ No results found for: CHOLESTEROL TOTAL , HDL , LDL CALC , LDL DIRECT , TRIGLYCERIDES , TSH , T3 TOTAL , T4 TOTAL , THYROID PEROXIDASE AB , BNP (more content not included)...NormalHarrison Community HospitalLACTATE DEHYDROGENASEon 73-03-6972DJGGENT DEHYDROGENASE (U/L) IN SER/PLAS BY LAC->PYR GCM553 U/WDdvfme070-153NrysdsthmkTriHealth Bethesda Butler HospitalComment on above: Performed By: #### [id number] ####[facility] ([facility])[address] [place], [place] [address]FLZZAFDOpq 60-71-1210MCZFBTEMWhhmudbqz instructions discussed with pt and pt's . Stated understanding.[facility] NURSNOTEDrRandee Quick made aware of High Sensitivity Troponin result of 81 post ablation. No orders received.[facility] ColumbusNURSNOTEPatient to preop bay __9_. Patient instructed to remove all clothing and how to use CHG wipes. Patient states understanding. No questions or concerns about pre op at this time.[facility] ColumbusPOCT GLUCOSE METER UNSOLICITED RESULTSon 16-94-1331Evezicz [Mass/Vol]96 mg/tCBwxjho29-510WnctufreioTriHealth Bethesda Butler HospitalComment on above:Order Comment: Waived Testing in the ED is performed under the ED CLIA certificate #[id number].Result Comment: ngrothaPerformed By: #### [id number] #### [facility] ([facility]) [address], [place] [address]ONCSMTB-UJJhk 71-54-8172BJF IN PPP BY COAGULATION ASSAY1.05 Normal0.90-1.10UnTriHealth Bethesda Butler HospitalComment on above:Result Comment: ACCCP RECOMMENDED INR FOR WARFARIN THERAPY CONDITION INR PROPHYLAXIS OF VENOUS THROMBOSIS 2-3 (HIGH-RISK SURGERY) TREATMENT OF VENOUS THROMBOSIS 2-3 TREATMENT OF PULMONARY EMBOLISM 2-3 PREVENTION OF SYSTEMIC EMBOLISM: 2-3 ACUTE MYOCARDIAL INFARCTION TISSUE HEART VALVES VALVULAR HEART DISEASE ATRIAL FIBRILLATION RECURRENT SYSTEMIC EMBOLISM MECHANICAL HEART VALVE 2.5-3.5 FROM: ORAL ANTICOAGULANTS. MECHANISM OF ACTION, CLINICAL EFFECTIVENESS, AND OPTIMAL THERAPEUTIC RANGE. CHEST 1995;108:231S-246S.Performed By: #### [id number] #### [facility] ([facility]) [address], [place] [address]CFLQHICTUSY TIME (PT) IN PPP BY COAGULATION ASSAY13.8 Seconds Ygsfwf14.3-14.8UnTriHealth Bethesda Butler HospitalComment on above:Performed By: #### [id number] #### [facility] ([facility]) [address], [place] [address]Hpmiuh Visiton 98-54-1187Gmqaek-up [id number] Rebeca Nicole 1950 M Date Provider Department Center 02/02/[address] [facility]-MAGDY QUICK [facility] Philippe [facility] Family History Family Status - Relation Status Age at Mother Father Level of Service:76999 [place] OFFICE/OUTPATIENT ESTABLISHED HIGH MDM 40 MIN Reason for Visit and Comments: Follow-up [346873] - Patient is here today for H & P. A-Fib ablation. Patient states he is doing well. Patient is working on getting his Cpap Ventricular Tachycardia [Other] Hypertension [631642] Atrial Fibrillation [80] Atrial Flutter [101] Dizziness [590388] - Patient states he had a dizzy spell last week and states he fell against his car. Patient states it resolved after standing for a few minutes.[facility] ColumbusOrders Onlyon 02-02-2025 Orders [id number] Rebeca Nicole 1950 M Date Provider Department [place] 02/02/2025 [address]4734-UFUQT DARREN [facility] PAC ME Medical C Family History Family Status - Relation Status Age at Mother Father DeceasedNormalUniversGreene Memorial Hospital36on 73-39-917146Dclfmpz Tucker, CNP to Co (Selected Message) SD 01/06/25 9:25 PM Note Reviewed with Dr. Quick, QT/Qtc is acceptable. Recommend a follow-up EKG after being on Doxepin for 5-7 days. If the medication is increased, the EKG will again need to be repeated 5-7 days after new dose. Checking for QT prolongation. Thank you LVM left on nurse line at Dr. Betancourt office advising of Jaymie Hdz and Ever Rodriguez recommendations Left message for Rebeca to come in, in 5 to 7 days after starting the Doxepin for a repeat EKG.[facility]36on 47-52-365809Sjszbzo Tucker, CNP to Co (Selected Message) SD 01/06/25 9:25 PM Note Reviewed with Dr. Quick, QT/Qtc is acceptable. Recommend a follow-up EKG after being on Doxepin for 5-7 days. If the medication is increased, the EKG will again need to be repeated 5-7 days after new dose. Checking for QT prolongation. Thank you LVM left on nurse line at Dr. Betancourt office advising of Jaymie Hdz and Ever Rodriguez recommendations.[facility]36on 01-06-[address] Quick, QT/Qtc is acceptable. Recommend a follow-up EKG after being on Doxepin for 5-7 days. If the medication is increased, the EKG will again need to be repeated 5-7 days after new dose. Checking for QT prolongation. Thank youNAshtabula County Medical Center36Can you email me the EKG or upload to [employer] and I can try to review with Dr. Quick todayNormalUniversGreene Memorial Hospital36on 66-58-786881RVD has been done and Emailed to Dr. Quick. How often would you like and EKG on this patient? Thank you Estefania Kaiser Paul Please see attached EKG for Mac Nicole. Patient will be starting Doxipen 10 mg 1 to [address] Kahn. Please advise if his EKG is ok to procced with taking this medication. ? Magdy Quick Deborah OK Advised Dr. Betancourt office ok per Dr Quick to proceed with Doxipin I emailed it to you both. Let me know if its not in your emailFreeman Cancer InstitutealUniWooster Community Hospital36See Dr. Quick's response. [facility]36on 89-75-178518Z will defer to Dr. Quick given questionable VT on holter monitor.[facility] Betancourt office at [facility] Dr. Kahn would like an Okay from Cardiology to start this patient on Doxepin 10 mg 1 to 2 tabs at HS. Please advise Need to check QT interval if placed on it Left message for Asia Rodriguez office to advise them of Dr. Curtis recommendations.[facility] Hospital of ColumbusTelephoneon 12-31-2024 [id number] Rebeca Nicole 1950 M Date Provider Department Center 12/31/2024 76360-RPFMMRHFHKESTEFANIA [facility] Family History Family Status - Relation Status Age at Mother Father DeceasedNormalUniWooster Community HospitalPrep for Procedureon 09-02-4824Gvhm for [id number] Rebeca Nicoel 1950 M Date Provider Department Center 11/19/20241986-[facility] ME HeartVAS Family History Family Status - Relation Status Age at Mother Father DeceasedNormalUniWooster Community HospitalOffice Visiton 55-89-2247Jyvauy-up [id number] Rebeca Nicole 1950 M Date Provider Department Center 10/27/2024 MAGDY GUPTA ALBERTO Paez [facility] Family History Family Status - Relation Status Age at Mother Father Level of Service:36504 [place] OFFICE/OUTPATIENT ESTABLISHED LOW MDM 20 [facility]Or[facility] Only[facility] 36-64-0915Sbnyug [id number] Rebeca Nicole 1950 M Date Provider Department Center 10/27/2024 JOSE CANNON ALBERTO Paez [facility] Family History Family Status - Relation Status Age at Mother Father DeceasedNormalUniversGreene Memorial HospitalBasophils Auto (Bld) [#/Vol]Ordered By: Gutierrez Larry on 23-49-7978Hxadzgodr (Bld) [#/Vol]0.1 10 3/uL 0.0-0.1FWVUMedicine Barnesville HospitalBasophils/100 WBC Auto (Bld)Ordered By: Gutierrez Larry on 98-85-6096Nwocvzbyb/100 WBC (Bld)1.8 %0.2-2.0[facility]aug[facility] Medical CenterCholesterol in LDL Calc [Mass/Vol]Ordered By: Gutierrez Larry on 18-58-2500Ezblqeuzqho in LDL [Mass/Vol]127.0 mg/dLUniversity Hospitals Geauga Medical CenterComment on above:<100 mg/dl AZZHHAR829-102 mg/dl NEAR OR ABOVE DZFDLJP839- 159 mg/dl BORDERLINE AXTF741-507 mg/dl HIGH>190 mg/dl VERY HIGHCholesterol in VLDL Calc [Mass/Vol]Ordered By: Gutierrez Larry on 22-04-6183Hrjdqrsvhmm in VLDL [Mass/Vol]34.2 mg/dLUniversity Hospitals Geauga Medical CenterEosinophils/100 WBC Auto (Bld)Ordered By: Gutierrez Larry on 38-20-2321Urzduwassyf/100 WBC (Bld)5.9 % 0.9-7.0[facility] Geauga Medical CenterErythrocyte distribution width Auto (RBC) [Ratio]Ordered By: Gutierrez Larry on 34-98-4462Opuzrhapexd distribution width (RBC) [Ratio]15.7 %High11.0-15.0[facility] Geauga Medical CenterGlobulin Calc (S) [Mass/Vol]Ordered By: Gutierrez Larry on 00-71-5161Czibkzvx (S) [Mass/Vol]4.0 g/dLUniversity Hospitals Geauga Medical CenterGlomerular filtration rate (GFR) estimation in non- AmericanOrdered By: Gutierrez Larry on 10-08-2024 GFR/1.73 sq M.predicted among non-blacks MDRD (S/P/Bld) [Vol rate/Area] mL/min/{1.73_m2}>=60 mL/min/1.73m 2FWVUMedicine Barnesville HospitalHematocrit Auto (Bld) [Volume fraction]Ordered By: Gutierrez Larry on 01-86-3710Abzzfntkmu (Bld) [Volume fraction]39.3 %Low42.0-54.0[facility] Hemoglobin [Mass/volume] in BloodOrdered By: Gutierrez Larry on 10-08-2024 Hemoglobin (Bld) [Mass/Vol]12.8 g/dLLow14.0-18.0[facility]auga Medical CenterLaboratory - Chemistry and Chemistry - challengeOrdered By: Gutierrez Larry on 91-77-0907Fohytew [Mass/Vol]3.2 g/dLLow3.4-5.0[facility]aug[facility] Medical CenterALP [Catalytic activity/Vol]70 U/F47-270JeruogewlUniversity Hospitals Geauga Medical Center ALT [Catalytic activity/Vol]26 U/U33-14HvjkadjrbUniversity Hospitals Geauga Medical CenterAST [Catalytic activity/Vol]15 U/U00-39ZzxmugfdiUniversity Hospitals Geauga Medical CenterBilirubin [Mass/Vol]0.6 mg/dL0.2-1.0[facility] CenterCalcium [Mass/Vol]8.9 mg/dL8.5-10.1FWVUMedicine Barnesville HospitalChloride [Moles/Vol]106 mmol/L 98-107[facility] CenterCholesterol [Mass/Vol]219 mg/dLHigh<=200 [facility] CenterCholesterol in HDL [Mass/Vol]58 mg/dL40-60 [facility] Medical CenterComment on above:> or =60 mg/dl - LOW CARDIOVASCULAR RISK<40 mg/dl - HIGH CARDIOVASCULAR RISKCO2 [Moles/Vol]29.9 mmol/L21.0-32.0[facility] CenterCreatinine [Mass/Vol]1.13 mg/dL 0.70-1.30[facility]auga Medical CenterGFR/1.73 sq M.predicted MDRD (S/P/Bld) [Vol rate/Area]mL/min/{1.73_m2}>=60 mL/min/1.73m 2FWVUMedicine Barnesville HospitalGlucose [Mass/Vol]105 mg/mK84-306VqknlsitsUniversity Hospitals Geauga Medical Center Potassium [Moles/Vol]4.0 mmol/L3.5-5.1FWVUMedicine Barnesville HospitalProtein [Mass/Vol]7.2 g/dL6.4-8.2FKettering Healthodium [Moles/Vol]144 mmol/G034-227HowtobcirUniversity Hospitals Geauga Medical CenterTriglyceride [Mass/Vol]171 mg/dL High<=150[facility] Medical CenterUrea nitrogen [Mass/Vol]18.0 mg/dL 7.0-18.0[facility] Medical CenterUrea nitrogen/Creatinine [Mass ratio] 15.9 mg/mgUniversity Hospitals Geauga Medical CenterLaboratory - Hematology and Cell countsOrdered By: Gutierrez Larry on 06-41-4680Helywpxe granulocytes/100 WBC (Bld) 0.3 %0.0-0.5FWVUMedicine Barnesville HospitalLeukocytes [#/volume] corrected for nucleated erythrocytes in Blood by Automated counOrdered By: Gutierrez Larry on 22-29-3445ASJ corrected for nucl RBC Auto (Bld) [#/Vol]7.3 10 3/uL4.0-11.0 [facility] Medical CenterLymphocytes Auto (Bld) [#/Vol]Ordered By: Gutierrez Larry on 19-92-9146Majtyufvstb (Bld) [#/Vol]1.6 10 3/uL1.2-3.8[facility] Medical CenterLymphocytes/100 WBC Auto (Bld)Ordered By: Gutierrez Larry on 22-50-4815Qilqmbccdsg/100 WBC (Bld)22.2 %20.5-60.0[facility] Medical CenterMCH Auto (RBC) [Entitic mass]Ordered By: Gutierrez Larry on 73-04-1727EQM (RBC) [Entitic mass]30.0 pg25.9-34.0[facility] Ge[facility] Medical CenterMCHC Auto (RBC) [Mass/Vol]Ordered By: Gutierrez Larry on 99-46-3392HENU (RBC) [Mass/Vol]32.6 g/dL29.9-35.2FWVUMedicine Barnesville HospitalMCV Auto (RBC) [Entitic vol] Ordered By: Gutierrez Larry on 30-81-3673EBZ (RBC) [Entitic vol]92.3 fL80.0-94.0 [facility] Medical CenterMonocytes Auto (Bld) [#/Vol]Ordered By: Gutierrez Larry on 00-78-1150Fjsfrzhbt (Bld) [#/Vol]0.5 10 3/uL0.3-0.8[facility] Medical CenterMonocytes/100 WBC Auto (Bld)Ordered By: Gutierrez Larry on 50-21-7229Msfrzruhf/100 WBC (Bld)6.4 %1.7-12.0[facility] Neutrophils Auto (Bld) [#/Vol]Ordered By: Gutierrez Larry on 31-19-6356Oohrpczqcci (Bld) [#/Vol]4.6 10 3/uL1.4-6.5FWVUMedicine Barnesville HospitalNeutrophils/100 WBC Auto (Bld)Ordered By: Gutierrez Larry on 47-36-1704Yozkynhbczc/100 WBC (Bld) 63.4 %43.0-75.0[facility] CenterNo Panel InformationOrdered By: Gutierrez Larry on 27-14-2838Frypxmltdew # (Auto)0.4 10 3/uL0.0-0.7FWVUMedicine Barnesville HospitalImmature Granulocyte # (Auto)0.02 10 3/uL0.00-0.03 [facility] CenterProstate Specific Antigen Screen2.19 ng/mL <=4.00[facility] Medical CenterPlatelet mean volume Auto (Bld) [Entitic vol]Ordered By: Gutierrez Larry on 35-04-2005Pmggrufv mean volume (Bld) [Entitic vol]8.6 fLLow9.5-13.5FWVUMedicine Barnesville HospitalPlatelets Auto (Bld) [#/Vol]Ordered By: Gutierrez Larry on 71-19-6491Wiifivfaw (Bld) [#/Vol]226 10 3/uL 150-450[facility] Medical CenterRBC Auto (Bld) [#/Vol]Ordered By: Gutierrez Larry on 20-49-7627OEN (Bld) [#/Vol]4.26 10 6/uLLow4.70-6.10[facility] Hospitalerum or plasma albumin/globulin mass ratioOrdered By: Gutierrez Larry on 66-94-7977Ewjnhbq/Globulin [Mass ratio]0.8 {ratio}[facility] Hospitalerum or plasma anion gap determinationOrdered By: Gutierrez Larry on 02-10-8577Qzltp gap [Moles/Vol]12.1 mmol/LFKettering Healtherum or plasma total cholesterol/high density lipoprotein (HDL) cholesterol mass ratOrdered By: Gutierrez Larry on 10-08-2024 Cholesterol.total/Cholesterol in HDL [Mass ratio]3.8 {ratio}[facility] Medical CenterComment on above:3.3 - 4.4 LOW RISK4.4 - 7.1 AVERAGE RISK7.1 - 11.0 MODERATE RISK>11.0 HIGH HIBU58ci 20-69-414213Ohpmndnrn stress test result from 09/14/2024: Please let him know his stress test was normal. Follow up as planned with Dr. Quick. Thanks! Spoke with patient and made him aware.NormalHarrison Community Hospital Orders Onlyon 17-24-3162Skazga [id number] Rebeca Nicole 1950 M Date Provider Department Center 09/17/2024 [id number], HISTORICAL MAYELA Vasquez Family History Family Status - Relation Status Age at Mother Father DeceasedNormalUniWooster Community HospitalResults Follow-Upon 68-80-0148Sdfofkf Follow-[id number] Rebeca Nicole 1950 M Date Provider Department Center 09/17/2024 YESSENIA LUBIN Family History Family Status - Relation Status Age at Mother Father DeceasedNormalUniWooster Community HospitalOffice Visiton 44-41-3443Ffitdf-up [id number] Rebeca Nicole 1950 M Date Provider Department Center 08/25/2024 YESSENIA LUBIN [facility]ERTO [facility] Family History Family Status - Relation Status Age at Mother Father Level of Service:25136 [place] OFFICE/OUTPATIENT ESTABLISHED HIGH MDM 40 MIN Reason for Visit and Comments: Atrial Flutter [101] Hospital Follow-up [832][facility]30on 08-22-2024 30Daily Case Management Update Multidisciplinary rounds have been completed. Barriers to Discharge: Patient is medically ready for hospital discharge at this time. AVS has been completed, and primary RN has been notified of patients discharge readiness. Cardiology follow up appointment requested via [employer]. Patient will discharge to home and will arrange for own discharge transportation. No further OTM needs identified at this time. [facility] will continue to follow patient and assist with any further discharge related needs. Diet: Dietary Orders (From admission, onward) Start Ordered 08/21/24 1611 Regular Diet Diet effective now Question: Room Service? Answer: Yes 08/21/24 1610 08/20/24 1707 Special Kitchen Request Once Comments: Plz send dinner at 1815. Pt would like a turkey burger with lettuce, ketchup, villatoro, mustard. [place], mashed sweet potatoes, bon alexandra 08/20/24 1709 [...] Reason for OT? Answer: eval and treat 08/20/24224NoalUKettering Health Troy30The patient is Moderately Stable - Low risk of patient condition declining or worsening The patient's goals for the shift include comfort The clinical goals for the shift include vss Over the shift, the patient did not make progress toward the following goals. Barriers to progression include na. Recommendations to address these barriers include na.NormalUnTriHealth Bethesda Butler HospitalCBCon 80-64-3862Ehwsbpcdhro distribution width (RBC) [Ratio]16.2 %High11.5-15.0UnTriHealth Bethesda Butler HospitalComment on above:Performed By: #### [id number] ####[facility] ([facility])[address] [place], [place] [address]BVFVUOLYETY MEAN CORPUSCULAR HEMOGLOBIN CONCENTRATION (G/DL) BY RTNTGRSFH63.3 g/qEKigkvx56.0-35.0UnTriHealth Bethesda Butler HospitalComment on above:Performed By: #### [id number] ####[facility] ([facility])[address] [place], [place] [address]Agwwvslbho (Bld) [Volume fraction]41.2 %Naeefc45.0-50.0UnTriHealth Bethesda Butler HospitalComment on above:Performed By: #### [id number] ####[facility] ([facility])[address] [place], [place] [address]Dgazahzroy (Bld) [Mass/Vol]13.3 g/fGDyktrb29.0-17.0UnTriHealth Bethesda Butler HospitalComment on above:Performed By: #### [id number] ####[facility] ([facility])[address] [place], [place] [address]BCB (RBC) [Entitic mass] 29.8 qpYhyeam34.0-33.0UnTriHealth Bethesda Butler HospitalComment on above: Performed By: #### [id number] ####[facility] ([facility])[address] [place], [place] [address]XOG (RBC) [Entitic vol]92.4 bXLbddxa22.0-98.0UnTriHealth Bethesda Butler HospitalComment on above:Performed By: #### [id number] ####[facility] ([facility])[address] [place], [place] [address]UIJLXRFOV (10*3/UL) IN BLOOD AUTOMATED [id number] 10*3/wSLcgsts852-914NfmexmrtvwTriHealth Bethesda Butler Hospital Comment on above:Performed By: #### [id number] ####[facility] ([facility])[address] [place] [address]LRC (Bld) [#/Vol]4.46 10*6/uLNormal4.20-5.70 [facility] HospitalComment on above:Performed By: #### [id number] ####[facility] ([facility])[address] [place] [address]EPB (Bld) [#/Vol]9.06 10*3/uLNormal4.00-10.60UnTriHealth Bethesda Butler HospitalComment on above:Performed By: #### [id number] ####[facility] ([facility])[address] [place] [address]TWMHQRWSXIQQP METABOLIC PANELon 39-08-6776Xqrzofl [Mass/Vol] 3.6 g/dLNormal3.5-5.7UnTriHealth Bethesda Butler HospitalComment on above: Performed By: #### [id number] #### [facility] ([facility]) [address] [place] [address]ENM [Catalytic activity/Vol]57 U/BWhyfve37-726ZnfgjhfsvwTriHealth Bethesda Butler HospitalComment on above:Performed By: #### [id number] #### [facility] ([facility]) [address] [place] [address]JGJ [Catalytic activity/Vol]12 U/LNormal7-52UnTriHealth Bethesda Butler HospitalComment on above:Performed By: #### [id number] #### [facility] ([facility]) [address] [place], [place] [address]Wqrjt gap [Moles/Vol]8 mmol/LNormal7-20UnTriHealth Bethesda Butler HospitalComment on above:Performed By: #### [id number] #### [facility] ([facility]) [address] [place], [place] [address]ZUR [Catalytic activity/Vol]15 U/HDhzydw21-05XgqryuncmeTriHealth Bethesda Butler HospitalComment on above:Performed By: #### [id number] #### [facility] ([facility]) [address] [place] [address]Crhzhmivj [Mass/Vol]0.5 mg/dLNormal0.3-1.0UnTriHealth Bethesda Butler HospitalComment on above:Performed By: #### [id number] #### [facility] ([facility]) [address] [place] [address]Bpntlum [Mass/Vol]8.5 mg/dLLow8.6-10.3UnTriHealth Bethesda Butler HospitalComment on above:Performed By: #### [id number] #### [facility] ([facility]) [address] [place] [address]Trobssoc [Moles/Vol]107 mmol/KFxhhee55-872KclmmrytreTriHealth Bethesda Butler HospitalComment on above:Performed By: #### [id number] #### [facility] ([facility]) [address] [place] [address]TK6 [Moles/Vol]29 mmol/MBhtqno17-54OiqgtijpaiTriHealth Bethesda Butler HospitalComment on above:Performed By: #### [id number] #### [facility] ([facility]) [address] [place] [address]Cqengtjvpq [Mass/Vol]1.07 mg/dLNormal0.70-1.30UnTriHealth Bethesda Butler HospitalComment on above:Performed By: #### [id number] #### [facility] ([facility]) [address] [place] [address]JCJNALXPBJ FILTRATION RATE ML/MIN/1.73 SQ M.UJFHKFOMG39.8 mL/min/1.73m*2Normal>60.0UnTriHealth Bethesda Butler HospitalComment on above: Result Comment: [facility]???s estimated glomerular filtration rate (eGFR) will [...] potential consequences that do not disproportionately affect anyone group of individuals.Performed By: #### [id number] #### [facility] ([facility]) [address] [place], [place] [address]Jkouisw [Mass/Vol]97 mg/aMUqpkvb87-336AtpjbralwqTriHealth Bethesda Butler HospitalComment on above:Performed By: #### [id number] #### [facility] ([facility]) [address] [place], [place] [address]Fuhtrqaog [Moles/Vol]4.3 mmol/LNormal3.5-5.1UnTriHealth Bethesda Butler HospitalComment on above:Performed By: #### [id number] #### [facility] ([facility]) [address] [place], [place] [address]Aaevwkz [Mass/Vol]6.7 g/dLNormal6.0-8.3UnTriHealth Bethesda Butler HospitalComment on above:Performed By: #### [id number] #### [facility] ([facility]) [address] [place] [place] [place] [address]Fhwdzq [Moles/Vol]140 mmol/IHheykc550-866TvloxhjukhTriHealth Bethesda Butler HospitalComment on above:Performed By: #### [id number] #### [facility] ([facility]) [address] [place], [place] [address]Rzqh nitrogen [Mass/Vol]16 mg/dLNormal7-25UnTriHealth Bethesda Butler HospitalComment on above:Performed By: #### [id number] #### [facility] ([facility]) [address] [place], [place] [address]YPGP NITROGEN/CREATININE (MASS RATIO) IN SER/PLAS15.0Normal [facility] HospitalComment on above:Performed By: #### [id number] #### [facility] ([facility]) [address] [place], [place] [address]PAFTBMMYZgx 83-76-1287Chusnidfi [Mass/Vol]2.2 mg/dLNormal1.9-2.7 [facility] HospitalComment on above:Performed By: #### [id number] #### [facility] [place] [address]NMPNou 44-65-0497UEDG Attestation signed by Haim Altamirano MD at 08/29/2024 2:19 PM By using [...] Plan for EPS and AFL Ablation Haim Altamirano MD, ScM, MSc Cardiac Ham Curer Email: [email or web address] Patient: Rebeca Nicole Procedure Information Date/Time: 08/21/24 1305 Procedure: Ablation atrial flutter Location: [facility] WELT DRAWER 1 EP / [facility] (Cath) Providers: Haim Altamirano MD Clinical information reviewed: Tobacco Allergies Meds Problems Med Hx Surg Hx Fam Hx Soc Hx Physical Exam Airway Mallampati: III Cardiovascular Dental Pulmonary Abdominal Anesthesia Plan ASA 3 other (Conscious sedation) intravenous induction Anesthetic plan and risks discussed with patient. Use of blood products discussed with patient who consented to blood products. Plan discussed with attending and fellow. Additional Equipment RequestsNormalUniversAultman Alliance Community Hospitalon 23-96-9417QIQ&P reviewed. The patient was examined and there are no changes to the H&P.NormalHarrison Community HospitalOPNOTEon 47-30-1963EWMAUD Ablation atrial flutter Operative Note Date: 08/21/2024 Location[facility] (Cath) Name: Rebeca Nicole, : 1950, Diagnosis Pre-op Diagnosis * Atrial flutter, unspecified type (CMS/HCC) [I48.92] Post-op Diagnosis * Atrial flutter, unspecified type (CMS/HCC) [I48.92] Procedures Ablation atrial flutter 08677 - [place] OFFICE/OUTPT VISIT,PROCEDURE ONLY Surgeons Primary: Haim Altamirano MD Assisting: Magdy Quick MD Procedure Summary Anesthesia: Moderate Sedation ASA: ASA status not filed in the log. Estimated Blood Loss: 20 mL Total IV Fluids: 100 ml Drains: * None in log * Staff: Account Resolution Specialist: RT Neville Scrub Person: DEV Toribio Documenter: [...] PACU - hemodynamically stable. Condition: stable Haim Altamirano PiafsjFafhfjdufdUC [facility] Center30on [id number] patient is Moderately Stable - Low risk of patient condition declining or worsening The patient's goals for the shift include comfort The clinical goals for the shift include VSS Over the shift, the patient did not make progress toward the following goals. Barriers to progression include na. Recommendations to address these barriers include na.NormalH[facility] Community Hospital30Problem: Pain - Adult Goal: Verbalizes/displays adequate comfort level or baseline comfort level Outcome: Progressing Problem: Safety - Adult Goal: Free from fall injury Outcome: Progressing Flowsheets (Taken 08/20/2024 020) Free from fall injury: Assess patient frequently for physical needs Identify cognitive and physical deficits and behaviors that affect risk of falls [place] fall precautions as indicated by assessment Instruct patient to call for assistance with activity based on assessment Problem: Discharge Planning Goal: Discharge to home or other facility with appropriate resources Outcome: Progressing Flowsheets (Taken 08/20/2024 020) Discharge to home or other facility with appropriate resources: Identify barriers to discharge with patient and caregiver Problem: Chronic Conditions and Co-morbidities Goal: Patient's chronic conditions and co-morbidity symptoms are monitored and maintained or improved Outcome: Progressing Flowsheets (Taken 08/20/2024 020) Care Plan - Patient's Chronic Conditions and Co-Morbidity Symptoms are Monitored and Maintained or Improved: Monitor and assess patient's chronic conditions and comorbid symptoms for stability, deterioration, or improvement The patient is Moderately Stable - Low risk of patient condition declining or worsening The patient's goals for the shift include comfort The clinical goals for the shift include VSSNormalUniWooster Community Hospital30The patient is Moderately Stable - Low risk of patient condition declining or worsening The patient's goals for the shift include comfort The clinical goals for the shift include VSSNormalUniversity Premier Health Miami Valley Hospital SouthCB WITH AUTO DIFFERENTIALon 14-04-5527Yreempfnw (Bld) [#/Vol]0.12 10*3/uL Normal0.00-0.20UnTriHealth Bethesda Butler HospitalComment on above:Performed By: #### [id number] #### [facility] ([facility]) [address] [place] [place], [place] [address]Agrehhuvg/100 WBC (Bld)1.3 %High0.0-1.0UnTriHealth Bethesda Butler HospitalComment on above:Performed By: #### [id number] #### [facility] ([facility]) [address] [place], [place] [address]Vwanqtfqdey (Bld) [#/Vol]0.21 10*3/uLNormal0.00-0.50UnTriHealth Bethesda Butler HospitalComment on above:Performed By: #### [id number] #### [facility] ([facility]) [address] [place], [place] [address]Ekxhtdiyclc/100 WBC (Bld)2.4 %Normal0.0-6.0UnTriHealth Bethesda Butler HospitalComment on above:Performed By: #### [id number] #### [facility] ([facility]) [address] [place] [place], [place] [address]Jkossxmpnoa distribution width (RBC) [Ratio]16.2 %High11.5-15.0 [facility] HospitalComment on above:Performed By: #### [id number] #### [facility] ([facility]) [address] [place], [place] [address]YTZRYUTMOPE MEAN CORPUSCULAR HEMOGLOBIN CONCENTRATION (G/DL) BY GLCAGJQKJ17.3 g/bMOejjyu56.0-35.0UnTriHealth Bethesda Butler HospitalComment on above:Performed By: #### [id number] #### [facility] ([facility]) [address] [place] [place], [place] [address]Zywsgvpftr (Bld) [Volume fraction]40.3 %Vjgyxp17.0-50.0 [facility] CenterComment on above:Performed By: #### [id number] #### [facility] ([facility]) [address] [place] [place], [place] [address]Lxarjadnjb (Bld) [Mass/Vol]13.0 g/xEGuztib11.0-17.0UnTriHealth Bethesda Butler HospitalComment on above:Performed By: #### [id number] #### [facility] ([facility]) [address] [place], [place] [address]Ozjwvukg granulocytes (Bld) [#/Vol]0.04 10*3/uLNormal0.00-0.20 [facility] HospitalComment on above:Performed By: #### [id number] #### [facility] ([facility]) [address] [place] [place] [address]Sjnfrlia granulocytes/100 WBC (Bld)0.4 %Normal0.0-1.0UnTriHealth Bethesda Butler HospitalComment on above:Performed By: #### [id number] #### [facility] ([facility]) [address] [place] [place], [place] [address]Zyvjdetshtj (Bld) [#/Vol]1.88 10*3/uLNormal1.20-4.00UnTriHealth Bethesda Butler HospitalComment on above:Performed By: #### [id number] #### [facility] ([facility]) [address] [place] [place] [address]Gpftshmjwbl/100 WBC (Bld)21.1 %Lsfhtx42.0-45.0UnTriHealth Bethesda Butler HospitalComment on above:Performed By: #### [id number] #### [facility] ([facility]) [address] [place], [place] [address]JXX (RBC) [Entitic mass]29.7 ugGlulft40.0-33.0UnTriHealth Bethesda Butler HospitalComment on above:Performed By: #### [id number] #### [facility] ([facility]) [address] [place], [place] [address]LWC (RBC) [Entitic vol]92.0 wKLqjpws47.0-98.0UnTriHealth Bethesda Butler HospitalComment on above:Performed By: #### [id number] #### [facility] ([facility]) [address] [place] [address]Kzlusaswj (Bld) [#/Vol]0.60 10*3/uLNormal0.10-1.00UnTriHealth Bethesda Butler HospitalComment on above:Performed By: #### [id number] #### [facility] ([facility]) [address] [place] [address]Lylaozegb/100 WBC (Bld)6.7 %Normal5.0-12.0UnTriHealth Bethesda Butler HospitalComment on above:Performed By: #### [id number] #### [facility] ([facility]) [address] [place] [address]Idicncezoti (Bld) [#/Vol]6.04 10*3/uLNormal1.60-7.60UnTriHealth Bethesda Butler HospitalComment on above:Performed By: #### [id number] #### [facility] ([facility]) [address] [place] [address]Lqmuzjhvkpc/100 WBC (Bld)68.1 %Jjdpqr86.0-72.0UnTriHealth Bethesda Butler HospitalComment on above:Performed By: #### [id number] #### [facility] ([facility]) [address] [place] [address]MQBF (PER 100 WBCS) BY AUTOMATED COUNT0.0 %Luuyud3ZmbbcedsllTriHealth Bethesda Butler HospitalComment on above:Performed By: #### [id number] #### [facility] ([facility]) [address] [place] [address]RTEIFYSXF (10*3/UL) IN BLOOD AUTOMATED SSFCA364 10*3/uLNormal 150-400UnTriHealth Bethesda Butler HospitalComment on above:Performed By: #### [id number] #### [facility] ([facility] [facility]) [address] [place] [address]RSN (Bld) [#/Vol]4.38 10*6/uLNormal4.20-5.70UnTriHealth Bethesda Butler HospitalComment on above:Performed By: #### [id number] #### [facility] ([facility]) [address] [place] [address]MKM (Bld) [#/Vol]8.89 10*3/uLNormal4.00-10.60UnTriHealth Bethesda Butler HospitalComment on above:Performed By: #### [id number] #### [facility] ([facility]) [address] [place] [address]GRZUJQTSSJOCC METABOLIC PANELon 71-32-7775Alfrvgv [Mass/Vol]3.6 g/dLNormal3.5-5.7UnTriHealth Bethesda Butler HospitalComment on above:Performed By: #### [id number] #### [facility] ([facility]) [address] [place] [address]DDE [Catalytic activity/Vol]55 U/JKgtjxh04-297CkrrixmnssTriHealth Bethesda Butler HospitalComment on above:Performed By: #### [id number] #### [facility] ([facility]) [address] [place] [address]TSB [Catalytic activity/Vol]15 U/LNormal7-52UnTriHealth Bethesda Butler HospitalComment on above:Performed By: #### [id number] #### [facility] ([facility]) [address] [place] [address]Nufsv gap [Moles/Vol]10 mmol/LNormal7-20UnTriHealth Bethesda Butler HospitalComment on above:Performed By: #### [id number] #### [facility] ([facility]) [address] [place], [place] [address]KUN [Catalytic activity/Vol]15 U/IGvtozx40-18ZfwrilphalTriHealth Bethesda Butler HospitalComment on above:Performed By: #### [id number] #### [facility] ([facility]) [address] [place], [place] [address]Zbofcldbt [Mass/Vol]0.8 mg/dLNormal0.3-1.0UnTriHealth Bethesda Butler HospitalComment on above:Performed By: #### [id number] #### [facility] ([facility]) [address] [place], [place] [address]Bamqwif [Mass/Vol]8.6 mg/dLNormal8.6-10.3UnTriHealth Bethesda Butler HospitalComment on above:Performed By: #### [id number] #### [facility] ([facility]) [address] [place], [place] [address]Xjyfafwd [Moles/Vol]105 mmol/TKwubux55-065CryuouevizTriHealth Bethesda Butler HospitalComment on above:Performed By: #### [id number] #### [facility] ([facility]) [address] [place], [place] [address]AV2 [Moles/Vol]28 mmol/ZBmehyv67-83EbaasmadnxTriHealth Bethesda Butler HospitalComment on above:Performed By: #### [id number] #### [facility] ([facility]) [address] [place], [place] [address]Rgwjnfyjku [Mass/Vol]0.90 mg/dLNormal0.70-1.30UnTriHealth Bethesda Butler HospitalComment on above:Performed By: #### [id number] #### [facility] ([facility]) [address] [place], [place] [address]MKCHBPIWHD FILTRATION RATE ML/MIN/1.73 SQ M.QQSHGRQXN19.6 mL/min/1.73m*2Normal>60.0UnTriHealth Bethesda Butler HospitalComment on above: Result Comment: [facility]???s estimated glomerular filtration rate (eGFR) will [...] potential consequences that do not disproportionately affect anyone group of individuals.Performed By: #### [id number] #### [facility] ([facility]) [address] [place], [place] [address]Lmaeric [Mass/Vol]88 mg/aJRruulv22-288LyuogsjktsTriHealth Bethesda Butler HospitalComment on above:Performed By: #### [id number] #### [facility] ([facility]) [address] [place] [address]Xooijnwpn [Moles/Vol]3.7 mmol/LNormal3.5-5.1UnTriHealth Bethesda Butler HospitalComment on above:Performed By: #### [id number] #### [facility] ([facility]) [address] [place] [address]Wlbxsql [Mass/Vol]6.5 g/dLNormal6.0-8.3UnTriHealth Bethesda Butler HospitalComment on above:Performed By: #### [id number] #### [facility] ([facility]) [address] [place] [address]Tgsuyk [Moles/Vol]139 mmol/TEsdwhd866-975BxgzpqnvskTriHealth Bethesda Butler HospitalComment on above:Performed By: #### [id number] #### [facility] ([facility]) [address] [place] [address]Rhgz nitrogen [Mass/Vol]15 mg/dLNormal7-25UnTriHealth Bethesda Butler HospitalComment on above:Performed By: #### [id number] #### [facility] ([facility]) [address] [place] [address]WWVZ NITROGEN/CREATININE (MASS RATIO) IN SER/PLAS16.7Normal [facility] HospitalComment on above:Performed By: #### [id number] #### [facility] ([facility]) [address] [place] [address]JVJXQCAcb [id number] Attestation signed by Magdy Quick MD at 08/21/2024 1:02 PM By using [...] EPS and see what can be induced. [facility] Note Reason for consultation: Ventricular [...] Year: No Utilities: Not At Risk (08/20/2024) [facility] Utilities Threatened with loss of [...] Psych: no depression, feeling (more content not included)...NormalUnTriHealth Bethesda Butler HospitalCONSULT Attestation signed by Giovani Monique MD at [...] HTN and obesity who was transferred from [place] to [facility] for SVT and PVCs on event monitor. [...] vomiting, fever. He had an echo at [facility] which was unremarkable per the patient. [...] Value Ventricular Rate 55 Atrial Rate 55 LA Interval 180 QRS DURATION 104 QT Interval 456 QTC CALCULATION(BAZETT) 436 P [place] 41 R-[place] 1 T Wave [place] 34 Impression Sinus bradycardia with occasional Premature [...] least in part, completed using a voice training administrator system. Every effort was made to ensure accuracy. However, inadvertent computerized training administrator errors may be present. Dileep Alvarenga (more content not included)...NormalUnTriHealth Bethesda Butler HospitalHIGH SENSITIVITY TROPONIN Ion 93-58-8054KO TROPONIN I (NG/L)5 ng/LNormal <20UnTriHealth Bethesda Butler HospitalComment on above:Performed By: #### [id number] #### [facility] ([facility]) [address] [place], [place] [address]TTbh [phone] Attestation signed by Magdy Quick MD at 08/21/2024 1:02 PM By using [...] EPS and see what can be induced. [facility] Note Reason for consultation: Ventricular [...] Year: No Utilities: Not At Risk (08/20/2024) [facility] Utilities Threatened with loss of [...] Psych: no depression, feeling (more content not included)...NormalHarrison Community HospitalBasophils Auto (Bld) [#/Vol]on 35-08-9982Szlxaicpi (Bld) [#/Vol]Automated basophil count0.0-0.1FWVUMedicine Barnesville HospitalBasophils (Bld) [#/Vol]0.1 10 3/uL0.0-0.1FWVUMedicine Barnesville HospitalBasophils/100 WBC Auto (Bld)on 86-29-3475Pbbifiicg/100 WBC (Bld)Automated basophil %0.2-2.0 [facility] CenterBasophils/100 WBC (Bld)1.5 %0.2-2.0[facility] CenterEosinophils/100 WBC Auto (Bld)on 08-19-2024 Eosinophils/100 WBC (Bld)Automated eosinophil %0.9-7.0[facility] CenterEosinophils/100 WBC (Bld)2.5 %0.9-7.0[facility] Erythrocyte distribution width Auto (RBC) [Ratio]on 66-29-5651Kjtjwikvkor distribution width (RBC) [Ratio]Erythrocyte distribution width [Ratio] by Automated oasnwZdwe37.0-15.0[facility] CenterErythrocyte distribution width (RBC) [Ratio]16.1 %High11.0-15.0[facility] CenterEstimated glomerular filtration rate (GFR) non- Americanon 17-94-8547RBN/1.73 sq M.predicted among non-blacks MDRD (S/P/Bld) [Vol rate/Area]Estimated glomerular filtration rate (GFR) non- AmericanLow>=60 mL/min/1.73m 2FWVUMedicine Barnesville HospitalGFR/1.73 sq M.predicted among non-blacks MDRD (S/P/Bld) [Vol rate/Area]58 mL/min/{1.73_m2}Low>=60 mL/min/1.[address]m [address] [place], [place] [address]Fibrin D-dimer [Presence] in Platelet poor plasma by Latex agglutinationon 07-20-6514Ssfbrk D-dimer LA Ql (PPP)Fibrin D- dimer [Presence] in Platelet poor plasma by Latex agglutination<=0.59[facility] Medical CenterComment on above:Increases in D-Dimer concentration observed withthromboembolic events can be variable due to localization,size, and age of the thrombus. Therefore, a thromboembolicevent cannot be diagnosed with certainty on the basis of thereference range. D-Dimers may also be elevated for a varietyof disorders including advanced age, , coronarydisease, cancer, liver disease, infection, inflammation,hematoma, DIC, trauma, post- surgery, diabetes, thrombolyticor anticoagulant therapy, stress, and general izedhospitalization.Fibrin D-dimer LA Ql (PPP)0.51 mg/L FEU<=0.59[facility] Medical CenterComment on above:Increases in D-Dimer concentration observed withthromboembolic events can be variable due to localization,size, and age of the thrombus. Therefore, a thromboembolicevent cannot be diagnosed with certainty on the basis of thereference range. D-Dimers may also be elevated for a varietyof disorders including advanced age, , coronarydisease, cancer, liver disease, infection, inflammation,hematoma, DIC, trauma, post- surgery, diabetes, thrombolyticor anticoagulant therapy, stress, and general izedhospitalization.Hematocrit Auto (Bld) [Volume fraction]on 08-19-2024 Hematocrit (Bld) [Volume fraction]Hematocrit [Volume Fraction] of Blood by Automated fevzgOmq04.0-54.0[facility] Medical CenterHematocrit (Bld) [Volume fraction]41.2 %Low42.0-54.0[facility] Medical CenterHemoglobin [Mass/volume] in Bloodon 92-31-2896Ykuacdwccc (Bld) [Mass/Vol]Hemoglobin [Mass/volume] in QonnoIey91.0-18.0[facility] CenterHemoglobin (Bld) [Mass/Vol]13.6 g/dLLow14.0-18.0[facility] CenterLaboratory - Chemistry and Chemistry - challengeon 38-83-1120Scikgio [Mass/Vol]8.8 mg/dL 8.5-10.1FWVUMedicine Barnesville HospitalChloride [Moles/Vol]103 mmol/L98-107 [facility] Medical CenterCO2 [Moles/Vol]29.4 mmol/L21.0-32.0[facility] CenterCreatinine [Mass/Vol]1.23 mg/dL0.70-1.30[facility] Medical CenterGFR/1.73 sq M.predicted MDRD (S/P/Bld) [Vol rate/Area] mL/min/{1.73_m2}>=60 mL/min/1.73m 2FWVUMedicine Barnesville HospitalGlucose [Mass/Vol]94 mg/pL22-338GfrlswfnpUniversity Hospitals Geauga Medical CenterNatriuretic peptide B (Bld) [Mass/Vol]147.0 pg/mL<=900.0[facility] CenterPotassium [Moles/Vol]3.8 mmol/L3.5-5.1FKettering Healthodium [Moles/Vol] 139 mmol/C940-031FkwaclcwyUniversity Hospitals Geauga Medical CenterUrea nitrogen [Mass/Vol]17.0 mg/dL7.0-18.0[facility] Medical CenterUrea nitrogen/Creatinine [Mass ratio]13.8 mg/mgUniversity Hospitals Geauga Medical CenterLaboratory - Hematology and Cell countson 72-50-5292Mdylrcyd granulocytes/100 WBC (Bld)0.2 %0.0-0.5FWVUMedicine Barnesville HospitalLeukocytes [#/volume] corrected for nucleated erythrocytes in Blood by Automated counon 20-11-5802ABP corrected for nucl RBC Auto (Bld) [#/Vol]Leukocytes [#/volume] corrected for nucleated erythrocytes in Blood by Automated coun4.0-11.0[facility] Medical CenterWBC corrected for nucl RBC Auto (Bld) [#/Vol]9.2 10 3/uL4.0-11.0[facility] Medical CenterLymphocytes Auto (Bld) [#/Vol]on 74-92-1909Ixkigmzeecv (Bld) [#/Vol] Lymphocytes [#/volume] in Blood by Automated count1.2-3.8[facility] Medical CenterLymphocytes (Bld) [#/Vol]1.9 10 3/uL1.2-3.8[facility] Medical CenterLymphocytes/100 WBC Auto (Bld)on 03-85-2088Vyxfwsrynrl/100 WBC (Bld)Lymphocytes/100 leukocytes in Blood by Automated vmmhnXoc75.5-60.0[facility] Medical CenterLymphocytes/100 WBC (Bld)20.4 %Low20.5-60.0[facility] Auto (RBC) [Entitic mass]on 00-52-8672NLH (RBC) [Entitic mass]MCH [Entitic mass] by Automated count25.9-34.0[facility] (RBC) [Entitic mass]30.1 pg25.9-34.0[facility] HospitalHC Auto (RBC) [Mass/Vol]on 82-49-9830GMAF (RBC) [Mass/Vol]MCHC [Mass/volume] by Automated count29.9-35.2FMercy Health Lorain HospitalHC (RBC) [Mass/Vol]33.0 g/dL29.9-35.2FMercy Health Lorain HospitalV Auto (RBC) [Entitic vol]on 49-88-6480NYW (RBC) [Entitic vol]MCV [Entitic volume] by Automated count80.0-94.0[facility] HospitalV (RBC) [Entitic vol] 91.2 fL80.0-94.0[facility] Medical CenterMonocytes Auto (Bld) [#/Vol]on 49-60-8137Camwkmsdz (Bld) [#/Vol]Automated blood monocyte count0.3-0.8[facility] Medical CenterMonocytes (Bld) [#/Vol]0.6 10 3/uL0.3-0.8[facility] CenterMonocytes/100 WBC Auto (Bld)on 93-13-6854Gczjwqucn/100 WBC (Bld)Automated monocyte %1.7-12.0[facility] Monocytes/100 WBC (Bld)6.7 %1.7-12.0[facility] Medical CenterNeutrophils Auto (Bld) [#/Vol]on 80-06-4207Zxxgjlhwrit (Bld) [#/Vol]Neutrophils [#/volume] in Blood by Automated count1.4-6.5FWVUMedicine Barnesville HospitalNeutrophils (Bld) [#/Vol]6.3 10 3/uL1.4-6.5FWVUMedicine Barnesville HospitalNeutrophils/100 WBC Auto (Bld)on 80-21-3097Qbxgsnqlsmk/100 WBC (Bld)Automated neutrophil % 43.0-75.0[facility] Medical CenterNeutrophils/100 WBC (Bld)68.7 % 43.0-75.0[facility] CenterNo Panel Informationon 08-19-2024 Eosinophils # (Auto)0.2 10 3/uL0.0-0.7FWVUMedicine Barnesville HospitalImmature Granulocyte # (Auto)0.02 10 3/uL0.00-0.03[facility] Troponin I High Sensitivity6.7 pg/mL4.0-76.1FWVUMedicine [facility] Hospital Comment on above:CUT-OFF POINTS HAVE BEEN ESTABLISHED BASED ON THE FOURTHUNIVERSAL DEFINITION OF MYOCARDIAL INFARCTION. THE UPPERREFERENCE LIMIT (URL) OF TROPONIN, DEFINED THE 99THPERCENTILE OF cTnI DISTRIBUTION IN A REFERENCE POPULATION,HAS BEEN CONFIRMED THE DECISION THRESHOLD FOR MIDIAGNOSIS.99TH PERCENTILE = 76.2 PG/MLNOTE: HIGH-SENSITIVITY TROPONIN ASSAY IS NOT INTENDED TO BEUSED IN ISOLATION BUT SHOULD BE INTERPRETED IN CONJUNCTIONWITH OTHER DIAGNOSTIC AND CLINICAL INFORMATION.Platelet mean volume Auto (Bld) [Entitic vol]on 76-44-4749Cstynmfa mean volume (Bld) [Entitic vol] Platelet mean volume [Entitic volume] in Blood by Automated countLow9.5-13.5 [facility] Medical CenterPlatelet mean volume (Bld) [Entitic vol]8.4 fL Low9.5-13.5FWVUMedicine Barnesville HospitalPlatelets Auto (Bld) [#/Vol]on 19-68-3134Dwiwcyhat (Bld) [#/Vol]Platelets [#/volume] in Blood by Automated -695BenwdhpuwUniversity Hospitals Geauga Medical CenterPlatelets (Bld) [#/Vol]244 10 3/uL 150-450[facility] Medical CenterRBC Auto (Bld) [#/Vol]on 45-27-0792EJN (Bld) [#/Vol]Erythrocytes [#/volume] in Blood by Automated countLow4.70-6.10 [facility] Medical CenterRBC (Bld) [#/Vol]4.52 10 6/uLLow4.70-6.10 [facility] Hospitalerum or plasma anion gap determinationon 16-12-2433Afqsh gap [Moles/Vol]Serum or plasma anion gap determinationUniversity Hospitals Geauga Medical CenterAnion gap [Moles/Vol]10.4 mmol/LFWVUMedicine Barnesville HospitalBasophils Auto (Bld) [#/Vol]on 04-86-4465Vygzzdgjp (Bld) [#/Vol] Automated basophil count0.0-0.1FWVUMedicine Barnesville HospitalBasophils (Bld) [#/Vol]0.1 10 3/uL0.0-0.1FWVUMedicine Barnesville HospitalBasophils/100 WBC Auto (Bld)on 13-06-1090Seanbbtoi/100 WBC (Bld)Automated basophil %0.2-2.0[facility] CenterBasophils/100 WBC (Bld)1.4 %0.2-2.0[facility] CenterEosinophils/100 WBC Auto (Bld)on 67-37-7741Cmrukltgrwh/100 WBC (Bld)Automated eosinophil %0.9-7.0[facility] Eosinophils/100 WBC (Bld)4.6 %0.9-7.0[facility] Erythrocyte distribution width Auto (RBC) [Ratio]on 36-33-3070Bfvdrnndzjf distribution width (RBC) [Ratio]Erythrocyte distribution width [Ratio] by Automated yhfsmUcuq16.0-15.0[facility] Medical CenterErythrocyte distribution width (RBC) [Ratio]15.8 %High11.0-15.0[facility] CenterEstimated glomerular filtration rate (GFR) non- Americanon 40-55-9115GEX/1.73 sq M.predicted among non-blacks MDRD (S/P/Bld) [Vol rate/Area]Estimated glomerular filtration rate (GFR) non- AmericanLow>=60 mL/min/1.73m 2FWVUMedicine Barnesville HospitalGFR/1.73 sq M.predicted among non-blacks MDRD (S/P/Bld) [Vol rate/Area]58 mL/min/{1.73_m2}Low>=60 mL/min/1.[address]m [address] [place], [place] [address]Hematocrit Auto (Bld) [Volume fraction]on 99-16-2394Ghaefytums (Bld) [Volume fraction]Hematocrit [Volume Fraction] of Blood by Automated fgsmeIbe76.0-54.0[facility] Medical CenterHematocrit (Bld) [Volume fraction]41.5 %Low42.0-54.0[facility] Hemoglobin [Mass/volume] in Bloodon 36-69-0047Msjgdycgdr (Bld) [Mass/Vol] Hemoglobin [Mass/volume] in MifqgJmb25.0-18.0[facility] Hemoglobin (Bld) [Mass/Vol]13.5 g/dLLow14.0-18.0[facility] CenterLaboratory - Chemistry and Chemistry - challengeon 40-34-7693Locrxxw [Mass/Vol]8.7 mg/dL8.5-10.1FWVUMedicine Barnesville HospitalChloride [Moles/Vol] 105 mmol/S10-607HqtvcbtgmUniversity Hospitals Geauga Medical CenterCO2 [Moles/Vol]29.3 mmol/L 21.0-32.0[facility] Medical CenterCreatinine [Mass/Vol]1.23 mg/dL 0.70-1.30[facility] CenterGFR/1.73 sq M.predicted MDRD (S/P/Bld) [Vol rate/Area]mL/min/{1.73_m2}>=60 mL/min/1.[address]m [address] [place], [place] [address]Glucose [Mass/Vol]104 mg/xB41-664PnopllfquUniversity Hospitals Geauga Medical Center Potassium [Moles/Vol]4.0 mmol/L3.5-5.1FKettering Healthodium [Moles/Vol]140 mmol/G454-768FrjdwuhgtUniversity Hospitals Geauga Medical CenterTSH Qn3.311 m[IU]/L 0.358-3.740[facility] Medical CenterUrea nitrogen [Mass/Vol]15.0 mg/dL 7.0-18.0[facility] Medical CenterUrea nitrogen/Creatinine [Mass ratio] 12.2 mg/mgUniversity Hospitals Geauga Medical CenterLaboratory - Hematology and Cell countson 36-99-1471Dbavawvs granulocytes/100 WBC (Bld)0.3 %0.0-0.5FWVUMedicine Barnesville HospitalLeukocytes [#/volume] corrected for nucleated erythrocytes in Blood by Automated counon 00-94-8561UYZ corrected for nucl RBC Auto (Bld) [#/Vol]Leukocytes [#/volume] corrected for nucleated erythrocytes in Blood by Automated coun4.0-11.0[facility] Medical CenterWBC corrected for nucl RBC Auto (Bld) [#/Vol]8.8 10 3/uL4.0-11.0[facility] Medical CenterLymphocytes Auto (Bld) [#/Vol]on 72-76-9792Zghkzzncblr (Bld) [#/Vol] Lymphocytes [#/volume] in Blood by Automated count1.2-3.8[facility] Medical CenterLymphocytes (Bld) [#/Vol]1.5 10 3/uL1.2-3.8[facility] Medical CenterLymphocytes/100 WBC Auto (Bld)on 99-17-5209Hhgyhisxxod/100 WBC (Bld)Lymphocytes/100 leukocytes in Blood by Automated mvnbxKjf22.5-60.0[facility] Medical CenterLymphocytes/100 WBC (Bld)17.2 %Low20.5-60.0[facility] Medical CenterMCH Auto (RBC) [Entitic mass]on 20-46-6861EKS (RBC) [Entitic mass]MCH [Entitic mass] by Automated count25.9-34.0[facility] (RBC) [Entitic mass]30.1 pg25.9-34.0[facility] Medical CenterMCHC Auto (RBC) [Mass/Vol]on 46-54-7687PCHF (RBC) [Mass/Vol]MCHC [Mass/volume] by Automated count29.9-35.2FWVUMedicine Barnesville HospitalMCHC (RBC) [Mass/Vol]32.5 g/dL29.9-35.2FWVUMedicine Barnesville HospitalMCV Auto (RBC) [Entitic vol]on 68-83-6971MHQ (RBC) [Entitic vol]MCV [Entitic volume] by Automated count80.0-94.0[facility] Medical CenterMCV (RBC) [Entitic vol] 92.4 fL80.0-94.0[facility] Medical CenterMonocytes Auto (Bld) [#/Vol]on 92-26-2087Gtzjwibwx (Bld) [#/Vol]Automated blood monocyte count0.3-0.8[facility] Medical CenterMonocytes (Bld) [#/Vol]0.5 10 3/uL0.3-0.8[facility] Medical CenterMonocytes/100 WBC Auto (Bld)on 24-94-9883Kspsavysh/100 WBC (Bld)Automated monocyte %1.7-12.0[facility] Monocytes/100 WBC (Bld)5.8 %1.7-12.0[facility] Medical CenterNeutrophils Auto (Bld) [#/Vol]on 30-19-3948Vaibjuyrpih (Bld) [#/Vol]Neutrophils [#/volume] in Blood by Automated count1.4-6.5FWVUMedicine Barnesville HospitalNeutrophils (Bld) [#/Vol]6.2 10 3/uL1.4-6.5FWVUMedicine Barnesville HospitalNeutrophils/100 WBC Auto (Bld)on 16-96-1840Lsadgpjyqgo/100 WBC (Bld)Automated neutrophil % 43.0-75.0[facility] Medical CenterNeutrophils/100 WBC (Bld)70.7 % 43.0-75.0[facility] Medical CenterNo Panel Informationon 07-30-2024 Eosinophils # (Auto)0.4 10 3/uL0.0-0.7[facility] Medical CenterImmature Granulocyte # (Auto)0.03 10 3/uL0.00-0.03[facility] Platelet mean volume Auto (Bld) [Entitic vol]on 46-25-9283Aygefxwi mean volume (Bld) [Entitic vol]Platelet mean volume [Entitic volume] in Blood by Automated countLow9.5-13.5FWVUMedicine Barnesville HospitalPlatelet mean volume (Bld) [Entitic vol]8.3 fLLow9.5-13.5FWVUMedicine Barnesville HospitalPlatelets Auto (Bld) [#/Vol]on 38-29-6858Rycyhewnd (Bld) [#/Vol]Platelets [#/volume] in Blood by Automated vutqc916-428DubxpvkraUniversity Hospitals Geauga Medical CenterPlatelets (Bld) [#/Vol]235 10 3/lQ538-443FmozlseziUniversity Hospitals Geauga Medical CenterRBC Auto (Bld) [#/Vol] on 36-58-3585TFF (Bld) [#/Vol]Erythrocytes [#/volume] in Blood by Automated countLow4.70-6.10[facility] Medical CenterRBC (Bld) [#/Vol]4.49 10 6/uL Low4.70-6.10[facility] City Hospitalerum or plasma anion gap determinationon 04-06-2370Psolq gap [Moles/Vol]Serum or plasma anion gap determinationUniversity Hospitals Geauga Medical CenterAnion gap [Moles/Vol]9.7 mmol/L [facility] Medical CenterXeroform 4x4on 30-10-8535Zpdhrdf in clinic MANUALLY TRANSCRIBED RESULTSProSoutheast Health Medical Center myeasydocs SystemXeroform 4x4on 01-22-2024 APPLIED IN CLINIC TODAY.MANUALLY TRANSCRIBED RESULTSProMediJacobs Rimell Limited System Xeroform 4x4on 22-04-9491Ixujura in clinic todayMANUALLY TRANSCRIBED RESULTS [facility] Hospital LimaMetabolomx SystemXeroform 4x4on 36-03-1809Vtkvtqn in clinic today.MANUALLY TRANSCRIBED RESULTSProMedica myeasydocs SystemXeroform 4x4on 64-89-0019Csumugn in clinic todayMANUALLY TRANSCRIBED RESULTSProCPG Soft SystemNo Panel Informationon 02-71-4418Hpmxqdt in clinic today MANUALLY TRANSCRIBED RESULTSProCPG Soft SystemNo Panel Informationon 11-94-0001ACTOBNU IN CLINIC TODAY.MANUALLY TRANSCRIBED RESULTSNo Panel InformationOrdered By: Lamar Bee on 89-78-1608BquByrqtn Health SystemAdaptic on 00-54-6183Ytkqprv in clinicMANUALLY TRANSCRIBED RESULTSProMedica Ascension Standish HospitalA1C with Estimated Average Gluon 89-97-8231A6F with Estimated Average Glu [employer] Other Basic Metabolic Panelon 37-57-6548Vwqdfhc [Mass/Vol] 9.4766968 mg/dL8.5-10.1 mg/dLSouth Bound Brook BoxC Other CO2 [Moles/Vol]30.50418107 mmol/L21.0-32.0 mmol/LNUrban Mapping Other Creatinine [Mass/Vol]1.09834932 mg/dL0.70-1.30 mg/dL [employer] Other Potassium [Moles/Vol]4.35756568 mmol/L3.5-5.1 mmol/L [employer] Other Urea nitrogen [Mass/Vol]16.4252197 mg/dL7.0-18.0 mg/dL [employer] Other Basic Metabolic Panelsee noteNoputnam county memorial hospital BoxC Other Basic Metabolic Ikmaf292 mmol/B817-132 mmol/LNUrban Mapping Other Basic Metabolic Mxtsl785 mg/dLCritically xzwf98-728 mg/dLMustbin BoxC Other Basic Metabolic Panel>60 mL/min/1.73m2>=60 mL/min/1.77l0AbusdKubi Mobi Other CBC AUTO DIFFon 15-00-0478SSPB #0.1 103/ulNormal 0.0-0.1The [facility]hes[facility] North HospitalComment on above:Performed By: #### CBC #### [facility] [address] [place] [address] Dr. Yilan ChangBasophils/100 WBC (Bld)1.8 %Normal0.2-2.0The [facility] Comment on above:Performed By: #### CBC #### [facility] [address] [place] [address] Dr. Yamilex Avery #0.4 103/ulNormal0.0-0.7The [facility] HospitalComment on above: Performed By: #### CBC #### [facility] [address] [place] [address] Dr. Yamilex Alfaroosinophils/100 WBC (Bld)5.4 %Normal0.9-7.0The [facility] Comment on above:Performed By: #### CBC #### [facility] [address] [place] [address] Dr. Yamilex Alfarorythrocyte distribution width (RBC) [Ratio]15.9 %Critically high 11.0-15.0The [facility] HospitalComment on above:Performed By: #### CBC #### [facility] [address] [place] [address] Dr. Yamilex RhodesHematocrit (Bld) [Volume fraction]40.4 %Critically low42.0-54.0 The [facility] HospitalComment on above:Performed By: #### CBC #### [facility] [address] [place] [address] Dr. Yamilex RhodesHemoglobin (Bld) [Mass/Vol]13.0 g/dLCritically low14.0-18.0The [facility] HospitalComment on above:Performed By: #### CBC #### [facility] [address] [place] [address] Dr. Yamilex Paul #0.02 10e3/ulNormal0.00-0.03The [facility] HospitalComment on above:Performed By: #### CBC #### [facility] [address] [place] [address] Dr. Yamilex Paul %0.3 %Normal0.0-0.5The [facility] HospitalComment on above: Performed By: #### CBC #### [facility] [address] [address] [address] Yamilex Anglin #1.4 103/ulNormal1.2-3.8The [facility] HospitalComment on above:Performed By: #### CBC #### [facility] [address] [place] [address] Dr. Yamilex Perezhocytes/100 WBC (Bld)20.6 %Yhfbvr72.5-60.0The [facility] HospitalComment on above:Performed By: #### CBC #### [facility] [address] [place] [address] Dr. Yamilex YbarraUAL DIFF REQNONormalThe [facility] HospitalComment on above: Performed By: #### CBC #### [facility] [address] [place] [address] Dr. Yamilex Collier (RBC) [Entitic mass]28.9 ssOpwwxb17.9-34.0The [facility] HospitalComment on above:Performed By: #### CBC #### [facility] [address] [place] [address] Dr. Yamilex Collier (RBC) [Mass/Vol]32.2 g/rTGrzscy69.9-35.2The [facility] HospitalComment on above:Performed By: #### CBC #### [facility] [address] [place] [address] Dr. Yamilex Collier (RBC) [Entitic vol]89.8 cUVkmsrz81.0-94.0The [facility] HospitalComment on above:Performed By: #### CBC #### [facility] [address] [place] [address] Dr. Yamielx Paniagua #0.6 103/ulNormal0.3-0.8The [facility] HospitalComment on above:Performed By: #### CBC #### [facility] [address] [place] [address] Dr. Yamilex Velasquezocytes/100 WBC (Bld)8.8 %Normal1.7-12.0The [facility] Comment on above:Performed By: #### CBC #### [facility] [address] [address] [address] Yamilex LuisUT #4.3 103/ulNormal1.4-6.5The [facility] HospitalComment on above:Performed By: #### CBC #### [facility] [address] [address] [address] Yamilex Luisutrophils/100 WBC (Bld)63.1 %Bpnome73.0-75.0The [facility] HospitalComformerly [facility] on above:Performed By: #### CBC #### [facility] [address] [address] [address] Yamilex RhodesPlatelet mean volume (Bld) [Entitic vol]8.1 fLCritically low 9.5-13.5The [facility] HospitalComformerly [facility] on above:Performed By: #### CBC #### [facility] [address] [place] [address] Dr. Yamilex RhodesPLT246 103/emNovutf903-235Exn [facility] on above: Performed By: #### CBC #### [facility] [address] [address] [address] Yamilex RhodesRBC4.50 106/ulCritically low4.70-6.10The [facility] on above:Performed By: #### CBC #### [facility] [address] [place] [address] Dr. Yamilex RhodesWBC6.8 103/ulNormal4.0-11.0The [facility] on above: Performed By: #### CBC #### [facility] [address] [place] [address] Dr. Yamilex Davenportpletmauricio Blood Count and Diffon [id number] Ql (Bld) [employer] Other Basophilic stippling LM Ql (Bld)[employer] Other RBC morphology finding Nom (Bld)[employer] Other GLYCOHEMOGLOBIN A1Con [id number] RECOMMENDATIONSEE BELOWNormalThe Philippe HospitalComment on above:Result Comment: ADA RECOMMENDED LIMIT 4.0 - 6.0 ADA THERAPEUTIC TARGET < 7.0 ACTION SUGGESTED > 7.0Performed By: #### A1C #### [facility] [address] [place] [address] Dr. Yamilex RhodesGlucose [Mass/Vol]105 mg/dLNoMercy Health Allen HospitalComment on above:Performed By: #### A1C #### [facility] [address] [place] [address] Dr. Yamilex RhodesHbA1c (Bld) [Mass fraction]5.3 %Normal4.5-6.2The [facility] HospitalComment on above:Performed By: #### A1C #### [facility] [address] [place] [address] Dr. Yamilex RhodesPROF CHEM 8 (BAS METB)on [id number] gap [Moles/Vol]7.0 mmol/LTParkview HealthComment on above:Performed By: #### BMP #### [facility] [address] [place] [address] Dr. Yamilex RhodesCalcium [Mass/Vol]9.0 mg/dLNormal8.5-10.1[facility] Comment on above:Performed By: #### BMP #### [facility] [address] [place] [address] Dr. Yamilex RhodesChloride [Moles/Vol]105 mmol/L98-107 mmol/LTParkview Health Comment on above:Performed By: #### BMP #### [facility] [address] [place] [address] Dr. Yamilex RhodesCO2 [Moles/Vol]30.1 mmol/IVbylpj24.0-32.0[facility] Comment on above:Performed By: #### BMP #### [facility] [address] [place] [address] Dr. Yamilex RhodesCreatinine [Mass/Vol]1.01 mg/dLNormal0.70-1.30The [facility] HospitalComment on above:Performed By: #### BMP #### [facility] [address] [address] [address] Yamilex AlfaroGFR-AF ST LUCIAN>60Normal>=60The [facility] HospitalComment on above:Performed By: #### BMP #### [facility] [address] [place] [address] Dr. Yamilex AlfaroGFR-NON AF [facility] LUCIAN>60Normal>=60The [facility] HospitalComment on above:Performed By: #### BMP #### [facility] [address] [place] [address] Dr. Yamilex RhodesGlucose [Mass/Vol]119 mg/dLCritically eckn27-900Bmw [facility] HospitalComment on above:Performed By: #### BMP #### [facility] [address] [place] [address] Dr. Yamilex RhodesPotassium [Moles/Vol]4.1 mmol/LNormal3.5-5.1The [facility] Comment on above:Performed By: #### BMP #### [facility] [address] [place] [address] Dr. Yamilex RhodesSodium [Moles/Vol]138 mmol/AJciaeb549-259Hsx [facility] Comment on above:Performed By: #### BMP #### [facility] [address] [place] [address] Dr. Yamilex RhodesUrea nitrogen [Mass/Vol]16.0 mg/dLNormal7.0-18.0The [facility] HospitalComment on above:Performed By: #### BMP #### [facility] [address] [place] [address] Dr. Yamilex Rojas nitrogen/Creatinine [Mass ratio]15.8 mg/mgThe [facility] HospitalComment on above:Performed By: #### BMP #### [facility] [address] [place] [address] Dr. Yamilex RhodesCBC AUTO DIFFon [id number] #0.1 103/ulNormal0.0-0.1The [facility] HospitalComment on above:Performed By: #### CBC #### [facility] [address] [place], [place] [address] Dr. Yamilex RhodesBasophils/100 WBC (Bld)1.7 %Normal0.2-2.0The [facility] Comment on above:Performed By: #### CBC #### [facility] [address] [place] [address] Dr. Yamilex Avery #0.3 103/ulNormal0.0-0.7The [facility] HospitalComment on above: Performed By: #### CBC #### [facility] [address] [place] [address] Dr. Yaimlex Alfaroosinophils/100 WBC (Bld)4.7 %Normal0.9-7.0The [facility] Comment on above:Performed By: #### CBC #### [facility] [address] [place] [address] Dr. Yamilex Alfarorythrocyte distribution width (RBC) [Ratio]15.5 %Critically high 11.0-15.0The [facility] HospitalComment on above:Performed By: #### CBC #### [facility] [address] [place] [address] Dr. Yamilex RhodesHematocrit (Bld) [Volume fraction]41.7 %Critically low42.0-54.0 The [facility] HospitalComment on above:Performed By: #### CBC #### [facility] [address] [place] [address] Dr. Yamilex RhodesHemoglobin (Bld) [Mass/Vol]13.4 g/dLCritically low14.0-18.0The [facility] HospitalComment on above:Performed By: #### CBC #### [facility] [address] [place] [address] Dr. Yamilex Paul #0.03 10e3/ulNormal0.00-0.03The [facility] HospitalComment on above:Performed By: #### CBC #### [facility] [address] [place] [address] Dr. Yamilex Paul %0.5 %Normal0.0-0.5The [facility] HospitalComment on above: Performed By: #### CBC #### [facility] [address] [address] [address] Yamilex Anglin #1.2 103/ulNormal1.2-3.8The [facility] HospitalComment on above:Performed By: #### CBC #### [facility] [address] [address] [address] Yamilex Perezhocytes/100 WBC (Bld)18.9 %Critically low20.5-60.0The [facility] HospitalComment on above:Performed By: #### CBC #### [facility] [address] [address] [address] Yamilex Chong DIFF REQNONormalThe [facility] HospitalComment on above: Performed By: #### CBC #### [facility] [address] [place] [address] Dr. Yamilxe Collier (RBC) [Entitic mass]29.8 qpVmmrqd75.9-34.0The [facility] HospitalComment on above:Performed By: #### CBC #### [facility] [address] [place] [address] Dr. Yamilex Collier (RBC) [Mass/Vol]32.1 g/rHKwkkii54.9-35.2The [facility] HospitalComment on above:Performed By: #### CBC #### [facility] [address] [place] [address] Dr. Yamilex Collier (RBC) [Entitic vol]92.9 pKJteidn28.0-94.0The [facility] HospitalComment on above:Performed By: #### CBC #### [facility] [address] [place] [address] Dr. Yamilex Paniagua #0.5 103/ulNormal0.3-0.8The [facility] HospitalComment on above:Performed By: #### CBC #### [facility] [address] [place] [address] Dr. Yamilex Velasquezocytes/100 WBC (Bld)7.0 %Normal1.7-12.0The [facility] Comment on above:Performed By: #### CBC #### [facility] [address] [address] [address] Yamilex Jara #4.4 103/ulNormal1.4-6.5The [facility] HospitalComment on above:Performed By: #### CBC #### [facility] [address] [address] [address] Yamilex Luisutrophils/100 WBC (Bld)67.2 %Eivalg61.0-75.0The [facility] HospitalComment on above:Performed By: #### CBC #### [facility] [address] [address] [address] Yamilex RhodesPlatelet mean volume (Bld) [Entitic vol]8.3 fLCritically low 9.5-13.5The [facility] HospitalComment on above:Performed By: #### CBC #### [facility] [address] [place] [address] Dr. Yamilex RhodesPLT221 103/jmYjbwht916-152Ipa [facility] HospitalComment on above: Performed By: #### CBC #### [facility] [address] [place] [address] Dr. Yamilex RhodesRBC4.49 106/ulCritically low4.70-6.10The [facility] HospitalComment on above:Performed By: #### CBC #### [facility] [address] [place] [address] Dr. Yamilex RhodesWBC6.6 103/ulNormal4.0-11.0The [facility] HospitalComment on above: Performed By: #### CBC #### [facility] [address] [place] [address] Dr. Yamilex RhodesPROF CHEM 8 (BAS METB)on 83-10-1411Chanr gap [Moles/Vol]11.6 mmol/LNormalThe [facility] HospitalComment on above:Performed By: #### BMP #### [facility] [address] [place] [address] Dr. Yamilex RhodesCalcium [Mass/Vol]8.5 mg/dLNormal8.4-10.2The [facility] Comment on above:Performed By: #### BMP #### [facility] [address] [address] [address] Yamilex RhodesChloride [Moles/Vol]103 mmol/SFzjyzx89-062Mvf [facility] Comment on above:Performed By: #### BMP #### [facility] [address] [address] [address] Yamilex RhodesCO2 [Moles/Vol]29.4 mmol/MMulzab92.0-30.0[facility] Comment on above:Performed By: #### BMP #### [facility] [address] [address] [address] Yamilex RhodesCreatinine [Mass/Vol]1.10 mg/dLNormal0.66-1.25The [facility] HospitalComment on above:Performed By: #### BMP #### [facility] [address] [address] [address] Kaminski ChangEGFR-AF ST LUCIAN>60Normal>=60[facility] GlenbeighComment on above:Performed By: #### BMP #### [facility] [address] [address] [address] Yamilex AlfaroGFR-NON AF [facility] LUCI[facility]>60Normal>=60The [facility] HospitalComment on above:Performed By: #### BMP #### [facility] [address] [address] [address] Yamilex RhodesGlucose [Mass/Vol]114 mg/dLCritically hcyp95-836Off [facility] HospitalComment on above:Performed By: #### BMP #### [facility] [address] [address] [address] Yamilex RhodesPotassium [Moles/Vol]4.0 mmol/LNormal3.4-5.0[facility] Comment on above:Performed By: #### BMP #### [facility] [address] [address] [address] Yamilex RhodesSodium [Moles/Vol]140 mmol/NHrmtle977-412OetAcmc Healthcare System [facility] Comment on above:Performed By: #### BMP #### [facility] [address] [place], [place] [address] Dr. Yamilex RhodesUrea nitrogen [Mass/Vol]15.0 mg/dLNormal9.0-20.0The [facility] HospitalComment on above:Performed By: #### BMP #### [facility] [address] [place], [place] [address] Dr[address] Yamilex RhodesUrea nitrogen/Creatinine [Mass ratio]13.6 mg/mgNormalThe [facility] HospitalComment on above:Performed By: #### BMP #### [facility] [address] [place], [place] [address] Dr. Yamilex RhodesCOVID-19 [facility]URon 38-68-1674SRTP-CoV-2 (COVID-19) RNA BRANDO+probe Ql (Unsp spec)NegativeNormalNegativeUniversity Hospitals Geauga Medical CenterComment on above:Order Comment: Healthcare Worker?: NResult Comment: Testing for SARS-CoV-2 by RT-PCR This test was developed and its performance characteristics determined by [employer] and validated at the [facility]. This test has not been [...] is terminated or revoked sooner. PERFORMED BY: [place] [address] PATHOLOGIST FELT PAD CUTTER PRINCESS ALVAREZ M.D.Performed By: #### COVID 19 [facility] #### [place] [address] USACNOVon 26-50-9027FHLZEhszxd Visit (DERMMN) REBECA NICOLE ([id number]) 1950 M Date Time Provider Department 07/01/18 10:30 AM SANDY MULLER (RES)DERMMN During your visit today, we recorded the following information about you: Basil Al MD, MD 07/02/2018 11:40 AM Signed [facility] July 01, 2018 New [...] of Date: 07/01/2018 Noted Allergy Reaction BACTRIM (SULFAMETHOXAZOLE-TRIMETH*07/01/2018 2 - Rash Comments: Rash DOXYCYCLINE 07/01/2018 4 - Hives Comments: Hives Date Reviewed: 07/01/2018 Reviewed by: Luz Phoenix LPN - Fully Assessed Reason for Visit: Skin Check [1179] Cmt: wound check and rash Primary Visit Diagnosis:Rash and nonspecific skin eruption [R21] Order(s):SURGICAL PATHOLOGY [4926128] Order #: [id number]. #:[id number] WOUND CULTURE AND GRAM STAIN [SQWCUL] Order #: [id number]. #:[id number] HSV 1,2/VZV AMP MOLECULAR DETECT [SQHSVVZV] Order #: [id number] FUTURE Problem List As Of Date: 07/01/2018 (None) Disposition: Return in about 2 months (around 08/31/2018) for Brennon OJEDA. Follow-up and Disposition History Recorded Encounter Status:Closed by BASIL AL MD on 07/02/18[facility]/VZV Amplifon 08-41-4100RRI Type 1, HDANegative for Herpes Simplex virus Type 1 by Molecular Detection.[facility] Comment on above:Performed By: #### HSVVZV #### [facility] [address] [address] CBC Type 2, HDANegative for Herpes Simplex virus Type 2 by Molecular Detection.NormalUniversity Hospitals Conneaut Medical CenterComment on above:Performed By: #### HSVVZV #### [facility] [address] [address] Jldvonrx source Nom (Unsp spec)LesionNoLakeHealth Beachwood Medical CenterComment on above:Performed By: #### HSVVZV #### [address] [address] [address] Y Zoster Virus, HDANegative for Varicella Zoster virus by Molecular Detection.[facility] HospitalComment on above:Performed By: #### HSVVZV #### [facility] [address] [address] ADZFJOJWxz 26-93-2236Tjflydj mass concHNO ID: [id number] Author: Basil Al MD Service: ? Author Type: Physician Type: Progress Notes Filed: 07/02/2018 11:40 AM Note Text: [facility] July 01, 2018 New [...] documented above by the Resident. Basil Al MDNormElyria Memorial HospitalAL PATHOLOGYon 07-01-2018 SURGICAL PATHOLOGYSpecimen originated from [facility] Specimen #: [id number] Submitting Physician: BASIL AL FINAL DIAGNOSIS A. [...] in-situ hybridization tests have been determined by [facility]'s [facility] [place] ([facility]) in a manner consistent with CLIA requirements. One or more of these tests have not been cleared or approved by the FDA. [facility] is regulated under CLIA as qualified to perform high-complexity testing. These tests are used for clinical purposes. They should not be regarded as investigational or for research. Morales Li M.D. PhD (Electronic Signature) SPECIMEN SUBMITTED A: SKIN, LEFT UPPER BACK, [...] in one cassette. Gross examination performed at [facility], [address] [place] [address] 07/01/2018 6:33:05 PM B. Received in [facility] is one piece of tissue measuring 0.4 cm in the greatest dimension. Totally frozen for Direct Immunofluorescence. Gross examination performed at [address] 07/01/2018 7:32:29 PM Date of Report: 07/02/2018 Date of Procedure: 07/01/2018 Date of Receipt: 07/01/2018 Submitted by: BASIL AL Location: A61 Diagnostic interpretation performed at [place] [address]. CLIA Number: [id number]h Beachwood Medical CenterWound Culture/Stainon 59-94-0699Irlki Culture/StainSp. Request/Comment: - Eswab Smear Result - No organisms seen Few Polymorphonuclear leukocytes Culture Result - Rare skin floraNoLakeHealth Beachwood Medical CenterComment on above:Performed By: #### WCUL #### [facility] [address] [place] [address] Vital Signs Date TimeVital SignValuePerforming VvrcvprtoMqccvdge96-29-6924 13:32-0400Body kueunu056.12 cmBenjamin Ball DO Work Phone: [phone]09-03-2025 13:32-0400 Body mass index (BMI) [Ratio]36.5 kg/s9Ykrpalnr Ball DO Work Phone: [phone]09-03-2025 13:32-0400 Body hxhnep109.33 kgBenjamin Ball DO Work Phone: [facility]09-03-2025 13:32-0400 Diastolic blood mm[Hg]Gutierrez Ball DO Work Phone: [phone]09-03-2025 13:32-0400 Systolic blood mm[Hg]Gutierrez Ball DO Work Phone: [facility]08-28-2025 10:53-0400 Body .12 cmBenjamin Ball DO Work Phone: [phone] [place], [place] 4120308-28-2025 10:53-0400 Body mass index (BMI) [Ratio]36.6 kg/w1Dkguqxwx Ball DO Work Phone: [phone] [place], [place] 4120308-28-2025 10:53-0400 Body sjdiax538.56 kgBenjamin Ball DO Work Phone: [phone] [place], [place] 4120308-28-2025 10:53-0400 Diastolic blood tuorkjch03 mm[Hg]Gutierrez Ball DO Work Phone: [phone] [place], [place] 4120308-28-2025 10:53-0400 Heart rate57 /minBenjamin Ball DO Work Phone: [phone] [place], [place] 4120308-28-2025 10:53-0400 Respiratory rate12 /minBenjamin Ball DO Work Phone: [phone] [place], [place] 4120308-28-2025 10:53-0400 Systolic blood leglibyy051 mm[Hg]Gutierrez Ball DO Work Phone: [phone] [place], [place] 4120308-25-2025 09:49-0400 Body rwyqif149.1 cmAnthony Rusher DPM Work Phone: [phone] [place], [place] 8062108-25-2025 09:49-0400Body mass index (BMI) [Ratio]36.4 kg/u6Osehjkq Rusher DPM Work Phone: [phone] [place], [place] 8062108-25-2025 09:49-0400Body urucrw125.88 kgAnthony Rusher DPM Work Phone: [phone] [place], [place] 8062107-01-2025 09:13-0400Body wnodfp607.12 cmBenjamin Ball DO Work Phone: [phone] [place], [place] 4120307-01-2025 09:13-0400 Body mass index (BMI) [Ratio]36.7 kg/w3Hsaeretm Ball DO Work Phone: [phone] [place], [place] 4120307-01-2025 09:13-0400 Body pudiqx530.29 kgBenjamin Ball DO Work Phone: [phone]07-01-2025 09:13-0400 Diastolic blood mm[Hg]Gutierrez Ball DO Work Phone: [phone]07-01-2025 09:13-0400 Heart rate80 /minBenjamin Ball DO Work Phone: [phone] [place], [place] 1135107-01-2025 09:13-0400 Respiratory rate12 /minBenjamin Ball DO Work Phone: [phone] [place], [place] 1135107-01-2025 09:13-0400 Systolic blood xdwcecsk176 mm[Hg]Gutierrez Ball DO Work Phone: [phone] [place], [place] 1135105-23-2025 09:26-0400 Body yhsmpi828.12 cmUniversity Hospitals Geauga Medical Center05-23-2025 09:26-0400Body mass index (BMI) [Ratio]35.9 kg/p7FowhpyhucUniversity Hospitals Geauga Medical Center05-23-2025 09:26-0400Body mlislc727.84 [facility]05-23-2025 09:26-0400Diastolic blood brkyvfpi88 mm[Hg][facility] 08-28-2024 09:26-0400Heart rate66 /[facility] 08-28-2024 09:26-0400Respiratory rate12 /[facility] 08-28-2024 09:26-0400Systolic blood zzkqrgce166 mm[Hg][facility]04-22-2025 10:58-0400Body .12 cm[facility]04-22-2025 10:58-0400Body mass index (BMI) [Ratio]36.2 kg/d1HdyvrhazwUniversity Hospitals Geauga Medical Center04-22-2025 10:58-0400Body atnhlw733.2 [facility]04-22-2025 10:58-0400Diastolic blood etuxfrrp67 mm[Hg] [facility]04-22-2025 10:58-0400Heart rate65 /[facility]04-22-2025 10:58-0400Respiratory rate12 /[facility]04-22-2025 10:58-0400Systolic blood ndddyxrd209 mm[Hg] [facility]04-02-2025 08:42-0400Body xekhax418.1 cmAnthony Rusher DPM Work Phone: 1([phone] [place], [place] [address]Zbuprirvdm97-25-3952 08:42-0400Body mass index (BMI) [Ratio]36.4 kg/t1Pgxowsh Rusher DPM Work Phone: [phone])[address]04-02-2025 08:42-0400Body zrizsy477.88 kgAnthony Rusher DPM Work Phone: [phone])43[address]03-17-2025 09:02-0400Diastolic blood edwpdigx753 mm[Hg][facility]03-17-2025 09:02-0400Heart rate63 /[facility]03-17-2025 09:02-0400Systolic blood qwlrkbep180 mm[Hg][facility]03-17-2025 09:00-0400Body gjiown314.12 cmUniversity [facility]03-17-2025 09:00-0400Body mass index (BMI) [Ratio]36.1 kg/c7ScapusgfmUniversity Hospitals Geaug[facility] Center03-17-2025 09:00-0400Body .97 kgUniversity [facility]01-21-2025 10:28-0500Body ivtjvv727.1 cmAnthony Rusher DPM Work Phone: [phone])[address]01-21-2025 10:28-0500Body mass index (BMI) [Ratio]36.4 kg/w9Yxtcomb Rusher DPM Work Phone: [phone] [place], [place] [address]Fdnqmryhht15-60-7849 10:28-0500Body aepdib384.88 kgAnthony Rusher DPM Work Phone: [phone]01-03-2025 08:10-0500Body temperature 97.11 [degF]Catherine Ayoub ENTERTAINMENT REPORTER-SCRIPT EDITOR Work Phone: 1(145)449-[address] [place], [place] [address]0101-03-2025 08:10-0500Diastolic blood fxppjdis40 mm[Hg]Catherine Ayoub ENTERTAINMENT REPORTER-SCRIPT EDITOR Work Phone: 1(536)386-[address] [place], [place] [address]0101-03-2025 08:10-0500Heart rate 75 /minCatherine Ayoub ENTERTAINMENT REPORTER-SCRIPT EDITOR Work Phone: 1(661)174-[address] [place], [place] [address]0101-03-2025 08:10-0500Systolic blood ijhearpg911 mm[Hg]Catherine Ayoub ENTERTAINMENT REPORTER-SCRIPT EDITOR Work Phone: [phone]11-20-2024 08:24-0500Body wxfmnxndfah69.11 [degF]Catherine Ayoub ENTERTAINMENT REPORTER-SCRIPT EDITOR Work Phone: 1([phone] [place], [place] 6090111-20-2024 08:24-0500Diastolic blood szolftfl43 mm[Hg]Catherine Ayoub ENTERTAINMENT REPORTER-SCRIPT EDITOR Work Phone: 1(410)338-[address] [place], [place] 6090111-20-2024 08:24-0500Heart rate 61 /minCatherine Ayoub ENTERTAINMENT REPORTER-SCRIPT EDITOR Work Phone: 1(791)068-[address] [place], [place] 6090111-20-2024 08:24-0500 Respiratory rate16 /minCatherine Ayoub ENTERTAINMENT REPORTER-SCRIPT EDITOR Work Phone: 1(135)002-[address] [place], [place] 6090111-20-2024 08:24-0500Systolic blood bmyfxkja864 mm[Hg]Catherine Ayoub ENTERTAINMENT REPORTER-SCRIPT EDITOR Work Phone: 1(411)691-[address] [place], [place] 6090111-13-2024 08:09-0500Body pbawpgwjdvk70.39 [degF]Catherine Ayoub ENTERTAINMENT REPORTER-SCRIPT EDITOR Work Phone: 1(879)363-[address] [place], [place] 6090111-13-2024 08:09-0500Diastolic blood vgkcylce37 mm[Hg]Catherine Ayoub ENTERTAINMENT REPORTER-SCRIPT EDITOR Work Phone: 1(372)157-[address] [place], [place] 6090111-13-2024 08:09-0500Heart rate 75 /minMistypaula Anitra ENTERTAINMENT REPORTER-SCRIPT EDITOR Work Phone: 1(228)153-[address] [place], [place] 609[address]11-13-2024 08:09-0500 Respiratory rate16 /minCatherine Ayoub ENTERTAINMENT REPORTER-SCRIPT EDITOR Work Phone: [facility]11-13-2024 08:09-0500Systolic blood mm[Hg]Catherine Ayoub APRN-SCRIPT EDITOR Work Phone: [facility]11-11-2024 08:23-0500Body ybpuwv380.1 cmAnthomaggy Ramon DPM Work Phone: 1(172)254-[address] [place], [place] [address]Gapxsuflmr74-62-4877 08:23-0500Body mass index (BMI) [Ratio]36.4 kg/w5Sngpvdj Rusher DPM Work Phone: 1(539)969-[address] [place], [place] [address]Ucdicgsevw81-84-5527 08:23-0500Body vefupy116.88 kgAnthdale Rus DPM Work Phone: 1(925)061-[address] [place], [place] [address]Mdbswangep72-81-4931 08:08-0400Body temperature 97.3 [degF]Catherine Ayoub APRN-SCRIPT EDITOR Work Phone: [phone]10-30-2024 08:08-0400Diastolic blood oejzvcdf66 mm[Hg]Catherine Ayoub APRN-SCRIPT EDITOR Work Phone: [phone]10-30-2024 08:08-0400Heart rate 82 /minCatherine Ayoub APRN-SCRIPT EDITOR Work Phone: [phone]10-30-2024 08:08-0400 Respiratory rate16 /minCatherine Ayoub APRN-SCRIPT EDITOR Work Phone: 1(469)360-[address] [place], [place] 6090110-30-2024 08:08-0400Systolic blood iepjhqjk908 mm[Hg]Catherine Ayoub APRN-SCRIPT EDITOR Work Phone: 1(254)207-[address] [place], [place] 609[address]10-28-2024 10:09-0400Body mass index (BMI) [Ratio]37.44 kg/t8GnbqwxLan Cho MD Work Phone: [phone]10-28-2024 10:09-0400Body gqvamc744.97 kgLan Cho MD Work Phone: [facility]10-28-2024 10:09-0400Diastolic blood eavsimni42 mm[Hg]Lan Cho MD Work Phone: 1(620)[facility]10-28-2024 10:09-0400Heart rate 79 /minSnicolasa Cho MD Work Phone: 1(072)[facility]10-28-2024 10:09-0400Systolic blood mm[Hg]Lan Cho MD Work Phone: [phone]10-16-2024 07:00-0400Body .3 [degF]Catherine Ayoub ENTERTAINMENT REPORTER-SCRIPT EDITOR Work Phone: [facility]10-16-2024 07:00-0400Diastolic blood icymxojj60 mm[Hg]Catherine Ayoub ENTERTAINMENT REPORTER-SCRIPT EDITOR Work Phone: [facility]10-16-2024 07:00-0400Heart rate 74 /minCatherine Ayoub ENTERTAINMENT REPORTER-SCRIPT EDITOR Work Phone: [facility]10-16-2024 07:00-0400Systolic blood apfovpfi854 mm[Hg]Catherine Ayoub ENTERTAINMENT REPORTER-SCRIPT EDITOR Work Phone: [facility]10-09-2024 08:06-0400Body dbtndntahbb78.7 [degF]Sheyla Maganaiak ENTERTAINMENT REPORTER-SCRIPT EDITOR Work Phone: [phone]10-09-2024 08:06-0400Diastolic blood rclmxjap46 mm[Hg]Sheyla Maganaiak ENTERTAINMENT REPORTER-SCRIPT EDITOR Work Phone: 1([phone]10-09-2024 08:06-0400Heart rate 90 /minPradeepssemi Maganaiak ENTERTAINMENT REPORTER-SCRIPT EDITOR Work Phone: [phone]10-09-2024 08:06-0400 Respiratory rate16 /minPradeepssemi Maganaiak ENTERTAINMENT REPORTER-SCRIPT EDITOR Work Phone: [phone]10-09-2024 08:06-0400Systolic blood tyghussn679 mm[Hg]Sheyla Way ENTERTAINMENT REPORTER-SCRIPT EDITOR Work Phone: [phone]10-04-2024 08:27-0400Body ptjdatmnejj67.2 [degF]Catherine Ayoub ENTERTAINMENT REPORTER-SCRIPT EDITOR Work Phone: [phone]10-04-2024 08:27-0400Diastolic blood urigfyyo75 mm[Hg]Catherine Ayoub ENTERTAINMENT REPORTER-SCRIPT EDITOR Work Phone: [phone]10-04-2024 08:27-0400Heart rate 86 /minCatherine Ayoub ENTERTAINMENT REPORTER-SCRIPT EDITOR Work Phone: [phone]10-04-2024 08:27-0400Systolic blood vxylreld274 mm[Hg]Catherine Ayoub ENTERTAINMENT REPORTER-SCRIPT EDITOR Work Phone: 1(136)534-[address] [place], [place] [address]09-27-2024 09:32-0400Body hagvbecpage30.11 [degF]Catherine Ayoub ENTERTAINMENT REPORTER-SCRIPT EDITOR Work Phone: [phone]09-27-2024 09:32-0400Diastolic blood qfemytci422 mm[Hg]Catherine Ayoub ENTERTAINMENT REPORTER-SCRIPT EDITOR Work Phone: [phone]09-27-2024 09:32-0400Heart rate 74 /Aaron Ayoub ENTERTAINMENT REPORTER-SCRIPT EDITOR Work Phone: [phone]09-27-2024 09:32-0400 Respiratory rate16 /minCatherine Ayoub ENTERTAINMENT REPORTER-SCRIPT EDITOR Work Phone: [phone]09-27-2024 09:32-0400Systolic blood ypgzhyjo414 mm[Hg]Catherine Ayoub ENTERTAINMENT REPORTER-SCRIPT EDITOR Work Phone: [phone]09-20-2024 08:15-0400Body vhegeuldrpl74.9 [degF]Catherine Ayoub ENTERTAINMENT REPORTER-SCRIPT EDITOR Work Phone: [phone]09-20-2024 08:15-0400Diastolic blood fkfpmwij18 mm[Hg]Catherine Ayoub ENTERTAINMENT REPORTER-SCRIPT EDITOR Work Phone: [phone]09-20-2024 08:15-0400Heart rate 82 /minCatherine Ayoub ENTERTAINMENT REPORTER-SCRIPT EDITOR Work Phone: [phone]09-20-2024 08:15-0400 Respiratory rate16 /Aaron Ayoub ENTERTAINMENT REPORTER-SCRIPT EDITOR Work Phone: [phone]09-20-2024 08:15-0400Systolic blood qkcirxlk706 mm[Hg]Catherine Ayoub ENTERTAINMENT REPORTER-SCRIPT EDITOR Work Phone: 1(209)842-[address] [place], [place] 609[address]09-18-2024 09:02-0400Body gwtkgityrdb44.5 [degF]Catherine Ayoub ENTERTAINMENT REPORTER-SCRIPT EDITOR Work Phone: 1([phone])203-[address] [place], [place] 6090109-18-2024 09:02-0400Diastolic blood kwimylou42 mm[Hg]Catherine Ayoub ENTERTAINMENT REPORTER-SCRIPT EDITOR Work Phone: 1(592)605-[address] [place], [place] 609[address]09-18-2024 09:02-0400Heart rate 73 /minCatherine Ayoub ENTERTAINMENT REPORTER-SCRIPT EDITOR Work Phone: [phone]09-18-2024 09:02-0400 Respiratory rate16 /Aaron Ayoub ENTERTAINMENT REPORTER-SCRIPT EDITOR Work Phone: [phone]09-18-2024 09:02-0400Systolic blood moxcdyfu286 mm[Hg]Catherine Ayoub ENTERTAINMENT REPORTER-SCRIPT EDITOR Work Phone: [phone])836-[address] [place], [place] 609[address]09-11-2024 09:00-0400Body pigutxqzecj54.3 [degF]Catherine Ayoub ENTERTAINMENT REPORTER-SCRIPT EDITOR Work Phone: [phone] [place], [place] 609[address]09-11-2024 09:00-0400Diastolic blood hunumvoq65 mm[Hg]Catherine Ayoub ENTERTAINMENT REPORTER-SCRIPT EDITOR Work Phone: [phone]09-11-2024 09:00-0400Heart rate 68 /minCatherine Ayoub ENTERTAINMENT REPORTER-SCRIPT EDITOR Work Phone: 1(445)563-[address] [place], [place] 609[address]09-11-2024 09:00-0400 Respiratory rate16 /Aaron Ayoub APRN-SCRIPT EDITOR Work Phone: 1(998)416-[address] [place], [place] 609[address]09-11-2024 09:00-0400Systolic blood cjlsckfo517 mm[Hg]Catherine Ayoub APRN-SCRIPT EDITOR Work Phone: [phone])[address]08-28-2024 08:48-0400Body dmurebayijf80.91 [degF]Catherine Ayoub APRN-SCRIPT EDITOR Work Phone: 1(552)158-[address] [place], [place] 6090108-28-2024 08:48-0400Diastolic blood jvpjmsyw12 mm[Hg]Catherine Ayoub APRN-SCRIPT EDITOR Work Phone: [phone]08-28-2024 08:48-0400Heart rate 79 /Aaron Ayoub APRN-SCRIPT EDITOR Work Phone: 1(644)078-[address] [place], [place] 6090108-28-2024 08:48-0400 Respiratory rate16 /Aaron Ayoub APRN-SCRIPT EDITOR Work Phone: 1([phone])873-[address] [place], [place] 6090108-28-2024 08:48-0400Systolic blood iommwjnx101 mm[Hg]Catherine Ayoub APRN-SCRIPT EDITOR Work Phone: [phone]06-10-2024 10:14-0400Body qtlbud359.66 cm[facility]06-10-2024 10:14-0400Body mass index (BMI) [Ratio]36.6 kg/d6FmfkwkpjqUniversity [facility]als [facility]06-10-2024 10:14-0400Body gcyjps124.41 kgUniversity [facility]als [facility]06-10-2024 10:14-0400Diastolic blood nybvcoca52 mm[Hg][facility] 09-16-2023 10:14-0400Heart rate69 /[facility] 09-16-2023 10:14-0400Respiratory rate12 /[facility] 09-16-2023 10:14-0400Systolic blood mm[Hg][facility]02-20-2023 09:00-0500Body rktwzo197.12 cmBenjamin Ball Other [place] [facility] Other 02-20-2023 09:00-0500Body mass index (BMI) [Ratio] 38.43 kg/h5Mxlmigau Ball Other [place] [facility] Other 02-20-2023 09:00-0500Body jorlow132.87 kgBenjamin Ball Other [place] [facility] Other 02-20-2023 09:00-0500Diastolic blood khqowoae99 mm[Hg] Gutierrez Ball Other [place] [facility] Other 02-20-2023 09:00-0500Respiratory rate12 /minBenjamin Ball Other [place] [facility] Other 02-20-2023 09:00-0500Systolic blood mm[Hg] Gutierrez Ball Other [place] [facility] Other 02-01-2023 11:16-0500Diastolic blood vliaueqj92 mm[Hg] DO Gutierrez Ball Work Phone: [facility]02-01-2023 11:16-0500 Heart rate77 /minDO Gutierrez Ball Work Phone: [facility]02-01-2023 11:16-0500 Respiratory rate16 /minDO Gutierrez Ball Work Phone: [facility]02-01-2023 11:16-0500 SaO2% (BldA) [Mass fraction]98 %DO Gutierrez Ball Work Phone: [phone]02-01-2023 11:16-0500 Systolic blood ccfyflua041 mm[Hg]DO Gutierrez Ball Work Phone: [phone]02-01-2023 10:07-0500 Body gubxlx023.12 cmDO Gutierrez Larry Work Phone: [facility]02-01-2023 10:070500 Body wqsmfcuoizj77.6 [degF]DO Gutierrez Larry Work Phone: [facility]02-01-2023 10:070500 Body itqbec868.51 kgDO Gutierrez Larry Work Phone: [facility] Encounters Encounter DateEncounter TypeCare ProviderFacilityStart: 86-27-6621nabsxqtwexREVLTrinity Health Systemtart: 02-11-2025 End: 69-34-9404pzkmmvgelnWIJKTrinity Health Systemtart: 02-02-2025 End: 50-96-5619feophocyjaLSTITrinity Health Systemtart: 12-09-2024 End: 29-00-0362qcfydmmkzzYhbluesw Ball DO Work Phone: [facility] Work Phone: Start: 12-09-2024 End: 94-35-9205Djbegrz encounter procedureNickaitlin Kahn DO-[facility] Work Phone: Start: 12-03-2024 End: 96-57-3145vribmxirjqYsrcsygt Ball DO Work Phone: [facility] Work Phone: Start: 12-03-2024 End: 25-07-9465Iclmkto encounter procedureBenjamin Ball DO-[facility] Work Phone: Start: 11-30-2024 End: 19-34-2758Bcyllu flowsheetAnthony S Rusher DPM Work Phone: [facility]ryStart: 11-30-2024 End: 90-86-9814Wbvoyt flowsheetAnthony S Rusher DPM Work Phone: [facility]iatryStart: 11-30-2024 End: 76-72-0594qbkdfntmuxMMYZRFW S RUSHERNot AvailableStart: 11-30-2024 End: 06-09-3697Uypzknu encounter procedureMorales Ramon DPM Work Phone: NONH [place] PodiatryComment on above:Corns and callosities (Primary Dx); Onychomycosis; Onychodystrophy; Right foot pain; Left foot painStart: 10-27-2024 End: 10-74-0412zbyhwyduwsHNBISt. Mary's Medical Centertart: 80-86-6099Seb-patient / Non-visitBenloy Laron DO-[facility] Work Phone: Start: 25-64-2685Sti-patient / Non-visitNicole [facility] Work Phone: Start: 10-06-2024 End: 66-44-6586gbruoecdtsCoryuroy Ball DO Work Phone: [facility] Work Phone: Start: 10-06-2024 End: 28-57-8039Bjzqhwx encounter procedureBemony Laron DO-[facility] Work Phone: Start: 08-28-2024 End: 02-98-7010xxsfzwekpoNqggrpfjvOhioHealth [facility] Work Phone: Start: 08-28-2024 End: 28-69-4124Povwdbj encounter procedureFirrussell county [facility] Phys[facility] Work Phone: Start: 43-64-0553Bfa-patient / Non-[facility]As[facility] Work Phone: Start: 08-25-2024 End: 10-00-0571fujdheesnuWLGZWXU [facility], Inctart: 26-17-9039Fgxuoqbzgz and management of inpatientADAM [facility] Memorialtart: 55-96-9959Wpkfbsigxj and management of inpatientABHISHEK [facility], Avontart: 03-69-3676Urnzcqoels and management of inpatientABHISHEK [facility], Avontart: 69-24-8893Hxdlrivyqb and management of inpatientAMNA IQFisher-Titus Medical Centertart: 08-20-2024 End: 67-61-9300Epzoqydrzf and management of inpatientDARYL [facility] Hospitaltart: 43-25-8134Ffm-patient / Non-visitAs[facility] Physician [facility] Work Phone: Start: 69-32-6584Dqd-patient / Non-visitCharles [facility] Work Phone: Start: 07-28-2024 End: 74-02-9855shtgmwalguNtmpxgsvwMartin Memorial Hospital Work Phone: Start: 07-28-2024 End: 05-68-5823Zlsicmt encounter procedureAsheville [facility]ty [facility] Physician [facility] Work Phone: Start: 2024 End: 10-48-9893Fwnaiq flowsheetMorales Ramon DPM Work Phone: [facility] PODIATRYStart: 2024 End: 11-83-3350Yfbqom flowsheetMorales Ramon DPM Work Phone: [facility] PODIATRYStart: 2024 End: 99-19-7724Aarzkon encounter procedureAnthdale Ramon DPM Work Phone: noms PODIATRYComment on above:Corns and callosities (Primary Dx); Onychomycosis; Onychodystrophy; Right foot pain; Left foot painStart: 2024 End: 69-01-3414wiwyilduzwKQSQYLM S RUSHERNot AvailableStart: 06-22-2024 End: 93-96-1273ltwyqthmiiNsbezmgkmOhioHealth [facility] Work Phone: Start: 06-22-2024 End: 74-23-6866Ngtxddr encounter procedureAsheville Specialty Hospital Physician [facility] Work Phone: Start: 04-28-2024 End: 45-86-8856Rfixqc flowspedro luisLuciedale Ramon DPM Work Phone: [facility] PODIATRYStart: 04-28-2024 End: 11-28-5541Xdqezt flowsheetAnthony Bul Anshulher DPM Work Phone: [facility] PODIATRYStart: 04-28-2024 End: 31-88-9842Uqrdoo outpatient visit 15 minutesAnthdale Blu Anshul DPM Work Phone: noms PODIATRYComment on above:Corns and callosities (Primary Dx); Right foot pain; OnychomycosisStart: 04-28-2024 End: 67-99-6398olhbszxicvCGCASQG S RUSHERNot AvailableStart: 04-10-2024 End: 01-06-0073opbgjtyxvyUHOC P [facility]YReg[facility] HospitalStart: 04-10-2024 End: 75-88-5448Gcoqky outpatient visit 10 minutesCatherine Ayoub ENTERTAINMENT REPORTER-SCRIPT EDITOR Work Phone: [place] [facility]ound Care ClinicComment on above:Venous stasis ulcer of left ankle limited to breakdown of skin with varicose veins ([facility]-HCC) (Primary Dx)Start: 03-10-2024 End: 34-64-9695Krdbreywd Catracho Cho MD Work Phone: [facility] - Vein CareComment on above: cancel procedureStart: 02-28-2024 End: 40-21-9838IytlacAiljon G Afridi MD Work Phone: [facility] - Vein CareComment on above: Pre-operative anxiety (Primary Dx); Venous stasis ulcer of left ankle limited to breakdown of skin with varicose veins ([facility]-HCC)procedure time changeStart: 02-26-2024 End: 22-17-1243ayhyqcvgtlIAEY P [facility]YLancaster [facility] Hospitaltart: 02-26-2024 End: 82-03-6783Hhyggd outpatient visit 10 minutesCatherine Ayoub ENTERTAINMENT REPORTER-SCRIPT EDITOR Work Phone: [facility]ound Care ClinicComment on above:Venous stasis ulcer of left ankle limited to breakdown of skin, unspecified whether varicose veins present (CMS-HCC) (Primary Dx); Edema of left lower legStart: 02-19-2024 End: 98-83-1988loillnzqxoQFNW P [facility]YLancaster [facility] Hospitaltart: 02-19-2024 End: 79-47-0408Btbnov outpatient visit 15 minutesCatherine Ayoub ENTERTAINMENT REPORTER-SCRIPT EDITOR Work Phone: [facility] Wound Care ClinicComment on above:Venous stasis ulcer of left ankle limited to breakdown of skin with varicose veins (CMS-HCC) (Primary Dx); Rash due to allergyStart: 02-17-2024 End: 17-48-7127Eccgox flowsheetAnthony S Anshulher DPM Work Phone: [facility] PODIATRYStart: 02-17-2024 End: 19-01-9508Kivghn flowsheetAnthony S Rusher DPM Work Phone: [facility] PODIATRYStart: 02-17-2024 End: 31-62-1335Cbnesoa encounter procedureAnthony S Rusher DPM Work Phone: n[facility] PODIATRYComment on above:Corns and callosities (Primary Dx); Onychomycosis; Right foot painStart: 02-17-2024 End: 30-03-9618xiaztwfavxWRETEYH S ANSHULHERNot AvailableStart: 02-14-2024 End: 18-79-3033Cjyloq Shari Ayoub ENTERTAINMENT REPORTER-SCRIPT EDITOR Work Phone: [place] [facility]ound Care ClinicComment on above:Venous stasis ulcer of left ankle limited to breakdown of skin with varicose veins (CMS-HCC)Start: 02-05-2024 End: 49-34-5385kxhjsnezggHTSD P CHENEYMercy Health St[facility] SystemComment on above: Venous stasis ulcer of left ankle limited to breakdown of skin with varicose veins (CMS-HCC) (Primary Dx); Venous insufficiency of left lower extremity; Varicose veins of left lower extremity with pain; PhlebitisStart: 02-05-2024 End: 03-96-1620Jzqdwc outpatient visit 15 minutesCatherine Ayoub ENTERTAINMENT REPORTER-SCRIPT EDITOR Work Phone: [facility]ound Care ClinicComment on above:Venous stasis ulcer of left ankle limited to breakdown of skin with varicose veins (CMS-HCC) (Primary Dx); Edema of left lower legStart: 02-03-2024 End: 32-78-1797Vyqtfv outpatient visit 25 minutesLan Cho MD Work Phone: [facility] [place]ontComment on above: Venous insufficiency of left lower extremity (Primary Dx); Venous stasis ulcer of left ankle limited to breakdown of skin with varicose veins (CMS-HCC)Start: 02-03-2024 End: 11-17-0997blpdjmzajxCLUFIERochester Regional Health Ambulatory PPGStart: 01-22-2024 End: 76-23-5086Dshbwv outpatient visit 15 minutesCatherine Ayoub ENTERTAINMENT REPORTER-SCRIPT EDITOR Work Phone: [facility]ound Care ClinicComment on above:Venous stasis ulcer of left ankle limited to breakdown of skin with varicose veins (CMS-HCC) (Primary Dx)Start: 01-22-2024 End: 58-88-2728mpzsphbluuEFEP P [facility]YReg[facility] HospitalStart: 01-15-2024 End: 03-86-5356Dafvbg outpatient visit 15 minutesCatherine Ayoub ENTERTAINMENT REPORTER-SCRIPT EDITOR Work Phone: [facility] Wound Care ClinicComment on above:Venous stasis ulcer of left ankle limited to breakdown of skin with varicose veins (CMS-HCC) (Primary Dx)Start: 01-15-2024 End: 95-19-6291kpzqoplkwtDLQZFUB WOPARASDunlap Memorial Hospital HospitalStart: 01-10-2024 End: 78-20-8396Onxaii outpatient visit 15 minutesCatherine Ayoub ENTERTAINMENT REPORTER-SCRIPT EDITOR Work Phone: [facility]ound Care ClinicComment on above:Venous stasis ulcer of left ankle limited to breakdown of skin with varicose veins (CMS-HCC) (Primary Dx)Start: 01-10-2024 End: 98-67-5226bucotyrrflQCCW P [facility]ITALAVISRegional Medical Center HospitalStart: 01-03-2024 End: 24-68-7613Yzhkzf outpatient visit 10 minutesCatherine Ayoub ENTERTAINMENT REPORTER-SCRIPT EDITOR Work Phone: [facility]ound Care ClinicComment on above:Venous stasis ulcer of left ankle limited to breakdown of skin with varicose veins (CMS-HCC) (Primary Dx); Venous stasis ulcer of left ankle limited to breakdown of skin, unspecified whether varicose veins present (CMS-HCC)Start: 01-03-2024 End: 16-58-7969ssjjauoqcdOQUE P [facility]ITALAVISReg[facility] Medical Center HospitalStart: 12-27-2023 End: 32-50-5990Vxvcohx encounter Martín Ayoub ENTERTAINMENT REPORTER-SCRIPT EDITOR Work Phone: [facility]ound Care ClinicComment on above:Venous stasis ulcer of left ankle limited to breakdown of skin without varicose veins (CMS-HCC) (Primary Dx)Start: 12-27-2023 End: 67-13-4995prtqghqimjTLOQWKMF [facility] HospitalStart: 12-26-2023 End: 68-67-0556maekaecoktVCMQ P [facility]ITALAVISReg[facility] Center HospitalStart: 12-25-2023 End: 69-95-2937Xacfnv outpatient visit 10 minutesCatherine Ayoub ENTERTAINMENT REPORTER-SCRIPT EDITOR Work Phone: [facility]ound Care ClinicComment on above:Venous stasis ulcer of left ankle limited to breakdown of skin, unspecified whether varicose veins present (CMS-HCC) (Primary Dx); Venous stasis ulcer of left ankle limited to breakdown of skin without varicose veins (CMS-HCC)Start: 12-25-2023 End: [id number] P [facility]YLancaster [facility] Hospitaltart: 12-18-2023 End: [id number] outpatient visit 15 minutesCatherine Acuna Anitra ENTERTAINMENT REPORTER-SCRIPT EDITOR Work Phone: [place] [facility]ound Care ClinicComment on above:Venous stasis ulcer of left ankle limited to breakdown of skin without varicose veins ([facility]-HCC) (Primary Dx); Edema of left lower legStart: 12-18-2023 End: [id number] P [facility]YLanc[facility] Hospitaltart: 12-05-2023 End: [id number] SarahCatherine Acuna Anitra ENTERTAINMENT REPORTER-SCRIPT EDITOR Work Phone: [facility] Comment on above:Venous stasis ulcer of left ankle limited to breakdown of skin, unspecified whether varicose veins present ([facility]) (Primary Dx)Start: 12-04-2023 End: 47-03-8268Ickdun outpatient new 20 minutesCatherine Acuna Anitra ENTERTAINMENT REPORTER-SCRIPT EDITOR Work Phone: [place] - Wound Care ClinicComment on above:Traumatic open wound of left lower leg with delayed healing (Primary Dx); Edema of left lower leg; Venous stasis ulcer of left ankle limited to breakdown of skin, unspecified whether varicose veins present ([facility]-H[facility])Start: 12-04-2023 End: 07-97-8865cnqcddwaayEBLA P TREAVISRegional Medical Center HospitalStart: 09-16-2023 End: 84-65-2777hfaqkhjxxfRdmfnocumMartin Memorial Hospital Work Phone: Start: 09-16-2023 End: 93-97-2876Srwhour encounter [facility] Work Phone: Start: 11-01-2022 End: 92-76-9775fgarhcuscaHcitpag Ditty Other [place] BoxC Other Start: 79-44-0149Chmdqwwjh encounterCameron DittyFPG GastroenterologyStart: 07-18-2022 End: 81-00-3714zkkjjhlenpGissfcgr Ball Other no[place]bin BoxC Other Start: 42-23-6323Hcpcya outpatient visit 15 minutes [facility] ClinicStart: 05-31-2022 End: 14-08-4358toonaibtcjNU GUTIERREZ LARRYFacility:K9Dbkvj: 05-28-2022 End: 60-31-5932cnyqjeltaeXxozaguv Ball Other [facility] BoxC Other Start: 93-69-5070Xsegeto encounter procedureGutierrez Larry Medical ClinicStart: 45-63-6005Kquibmzjr encounterBenloy Larry Medical ClinicStart: 05-09-2022 End: 24-65-9272zaznlzndfhBjjsvib J DittyFacility:[facility] Hospitaltart: 05-09-2022 End: 29-06-9860Yjpycvwdq to same day surgery [facility] Gutierrez Larry Work Phone: [facility] Work Phone: Start: 05-09-2022 End: 19-63-5482qtrbypvewzNR Benjamin Ball Work Phone: [facility] Work Phone: Start: 12-26-2021 End: 50-29-4649aygcyconusAesssov Ditty Other [place] [facility] Other Start: 02-71-3771Dqqiqzolt encounterCameron DittyFPG GastroenterologyStart: 09-21-2021 End: 86-49-1563jfgcxgecjmXxwedgg Ditty Other [place] Box[facility] Other Start: 44-94-5511Kzosferqu encounterCameron DittyFPG GastroenterologyStart: 06-13-2021 End: 62-55-7579ifsljmshhvWW BENJAMIN BALLFacility:G1Ekvrt: 06-08-2021 End: 30-85-3879dzowkmfxzaVSParis LARRYFacility:T3Wnola: 05-23-2021 End: 08-16-3917onvxsbnayjLiiddtb J DittyFacility:[facility] [place] [facility] Hospitaltart: 05-19-2021 End: 29-37-1096cxfnylvypyQvncbzp J DittyFacility:[facility] [place] [facility] Hospitaltart: 29-20-7203Qejew health examinationCamclearsky rehabilitation hospital of [facility] [place] Other [facility] BoxC Other Start: 07-01-2018 End: 03-62-1408Oshdknx encounter procedureSARA (RES) ADAM WILLETT [facility] Procedures DateProcedureProcedure DetailPerforming ClinicianStart: 20-15-8868Ybjhnf-up visitFollow-upPAUL CHACKOStart: 59-83-3949VSEPDIX COMMUNICATIONMistyy P Waldron ENTERTAINMENT REPORTER-SCRIPT EDITOR Work Phone: Start: 34-46-9210IJQVLJW COMMUNICATIONCatherine P Anitra ENTERTAINMENT REPORTER-SCRIPT EDITOR Work Phone: Start: 86-62-3748CFIXKUD COMMUNICATIONMary P Waldron ENTERTAINMENT REPORTER-SCRIPT EDITOR Work Phone: Start: 14-47-3392MGDWEUA COMMUNICATIONMary P Waldron ENTERTAINMENT REPORTER-SCRIPT EDITOR Work Phone: Start: 57-59-4589AKUDIBW COMMUNICATIONMary P Anitra ENTERTAINMENT REPORTER-SCRIPT EDITOR Work Phone: Start: 52-46-4356ZIWCQHY COMMUNICATIONMary P Anitra ENTERTAINMENT REPORTER-SCRIPT EDITOR Work Phone: Start: 29-05-6974GMGSJOE COMMUNICATIONMary P Anitra ENTERTAINMENT REPORTER-SCRIPT EDITOR Work Phone: Start: 53-78-4644NNUUGBY COMMUNICATIONMary P Anitra ENTERTAINMENT REPORTER-SCRIPT EDITOR Work Phone: Start: 55-97-4412EKT screeningDR GUTIERREZ LARONComment on above:Performed By: #### PSASC #### [facility] [address] [place] [address] Dr. Yamilex RhodesStart: 33-62-1164CoslaeiqkwaXJ Gutierrez Larry Work Phone: Start: 11-27-2018H/O: artificial jointCameron Ditty Other Start: 27-13-0211Chzdjsyhr for malignant neoplasm of colonCameron Ditty Other Start: 88-96-2294Xwjqevw examination of patientCameron Ditty Other Start: 11-69-6077Ukbuftalxpvvbb screeningCameron Ditty Other Start: 22-70-9264Ebwchavwm for malignant neoplasm of prostateCameron Ditty Other Depression screeningCameron Ditty Other Screening for malignant neoplasm of prostateCameron Ditty Other Plan of Treatment DateCare ActivityDetailAuthorStart: 89-64-2930Sqadion ScreeningTobacco Screening [facility] SystemStart: 67-64-8159Vxefwew ScreeningTobacco Screening [facility] SystemStart: 89-57-9295Zpayogk ScreeningTobacco Screening [facility] SystemStart: 10-98-8199Zwxixce ScreeningTobacco Screening [facility] SystemStart: 15-36-8579Nplnw BMI ScreeningAdult BMI Screening [facility] SystemStart: 66-60-5260Ytuvtpt ScreeningTobacco Screening [facility] SystemStart: 85-45-2426Tjdmaps ScreeningTobacco Screening [facility] SystemStart: 90-45-6309Itxkpbu ScreeningTobacco Screening [facility] SystemStart: 45-47-5103Buamhdt ScreeningTobacco Screening [facility] SystemStart: 92-97-4529Yvluzwm ScreeningTobacco Screening [facility] SystemStart: 37-07-6983Gnqnalk ScreeningTobacco Screening [facility] SystemStart: 2024 End: 86-54-4022Ajclcuv encounter rkefibenl49/02/2025 8:45 AM EDT Office Visit [facility] [address] [facility] [place] [address] Morales Ramon, AYANNAM [address] [place], [place] [id number] ArrivedNOMID [facility] PODIATRYComment on above:ArrivedStart: 04-28-2024 End: 78-80-2448Gxspnha encounter zvtawtxxi72/21/2025 10:30 AM EST Office Visit [facility] [address] [place] [address] Morales Ramon, DPM [address] [place] [address] ArrivedNOMID [facility] PODIATRYComment on above:ArrivedStart: 03-25-2024 End: 02-83-6333Duibplf encounter /18/2024 8:00 AM EST Office Visit [facility] [address] [place] [address] Catherine Ayoub, ENTERTAINMENT REPORTER-[facility] [address] [facility], [id number] [facility] ClinicStart: 03-18-2024 End: 01-32-6445Jtgnxgg encounter procedureProMedica [facility] Systemtart: 03-13-2024 End: 31-32-1471Offcwmt encounter qwpvohrnq41/06/2024 3:30 PM EST Procedure visit [facility] [address] [place] [address], [address] [place] [address] Lan Cho MD [address] [facility] [address] [place] [address] [facility] - Vein CareStart: 02-26-2024 End: 69-12-8359Qdzferq encounter ybzmytwsq63/20/2024 8:20 AM EST Office Visit [facility] [address] [place] [address] Catherine Ayoub, ENTERTAINMENT REPORTER-SCRIPT EDITOR [address] [place], [place] [facility]art: 02-19-2024 End: 74-17-7725Xecqfou encounter /13/2024 8:00 AM EST Office Visit [facility] [address] [place] [address] Catherine Ayoub, ENTERTAINMENT REPORTER-SCRIPT EDITOR [address] [place], [place] [facility] 02-17-2024 End: 89-69-1276Kocfpfk encounter mfpeowkzr07/11/2024 8:30 AM EST Office Visit [facility] [address] [place] [address] Morales Ramon, DPM [address] [place] [address] ArrivedNOMS PODIATRYComment on above:ArrivedStart: 02-05-2024 End: 77-89-1153WD.doppler Lower extremity vein - leftVas venous duplex lwr single left Vascular Ultrasound Routine Venous stasis ulcer of left ankle limi destin to breakdown of skin with varicose veins (CMS-HCC) Venous insufficiency of left lower extremityVaricose veins of left lower extremity with pain Phlebitis Expected: 02/05/2024, Expires: 02/04/2025[facility] Work Phone: Comment on above:Expected: 02/05/2024, Expires: 02/04/2025Start: 02-05-2024 End: 25-84-1817Qhvgeqf encounter obwoecnlf00/30/2024 8:00 AM EDT Office Visit [facility] [address] [place] [address] Catherine Ayoub, ENTERTAINMENT REPORTER-SCRIPT EDITOR [address] [place], [place] [facility]: 02-03-2024 End: 32-33-3883Ewkdsrqj for laser ablation of Extremity veinVein Treatment Vascular Ultrasound Routine Venous stasis ulcer of left ankle limited to breakdown of skin with varicose veins ([facility]) Venous insufficiency of left lower extremity Expected: 02/03/2024, Expires: 02/02/2025[facility] Work Phone: Comment on above:Expected: 02/03/2024, Expires: 02/02/2025Start: 02-03-2024 End: 20-36-4142Kivkvzy encounter fvxigvhiu49/28/2024 10:00 AM EDT Office Visit [facility] [place] [address] [place] [address] [place] [address] [place] [address] [facility]: 01-22-2024 End: 13-94-1921Lngketb encounter utfpjrrzl55/16/2024 8:00 AM EDT Office Visit [facility] [address] [place] [address] Catherine Ayoub, ENTERTAINMENT REPORTER-SCRIPT EDITOR [address] [facility], [id number] [facility] ClinicStart: 01-15-2024 End: 81-99-2562Biheost encounter gjittcmmg19/09/2024 8:00 AM EDT Office Visit [facility] [address] [place] [address] Catherine Ayoub, ENTERTAINMENT REPORTER-SCRIPT EDITOR [address] [facility], [id number], ENTERTAINMENT REPORTER-SCRIPT EDITOR [address] [place] [address] [facility] ClinicStart: 01-10-2024 End: 93-39-2430Vsoiwss encounter xitaqjoeb47/04/2024 8:20 AM EDT Office Visit [facility] [address] [place] [address] Catherine Ayoub, ENTERTAINMENT REPORTER-SCRIPT EDITOR [address] [facility], [id number] [facility] ClinicStart: 01-03-2024 End: 70-59-2392Ygzcoyh encounter ztveoqlhz89/27/2024 9:30 AM EDT Office Visit [facility] [address] [place] [address] Catherine Ayoub, ENTERTAINMENT REPORTER-SCRIPT EDITOR [address] [facility], [id number] [facility] ClinicStart: 01-01-2024 End: 76-28-9553Pxpfikd encounter cvegncviy24/25/2024 9:00 AM EDT Office Visit [facility] [address] [place] [address] Catherine Ayoub, ENTERTAINMENT REPORTER-SCRIPT EDITOR [address] [place], [place] [facility]: 12-27-2023 End: 30-65-2677Mrvxdqr encounter jydeejwfk75/20/2024 8:00 AM EDT Office Visit [facility] [address] [place] [address] Catherine Ayoub, ENTERTAINMENT REPORTER-SCRIPT EDITOR [address] [place], [place] [facility] ClinicStart: 12-26-2023 End: 73-58-8295Isklxpx encounter ivvyapunh05/19/2024 1:30 PM EDT Appointment [facility] [address] [place] [address] Catherine Ayoub, ENTERTAINMENT REPORTER-SCRIPT EDITOR [address] [place] [address] [place] - VascularStart: 12-25-2023 End: 15-49-9706Ljuugzr encounter jubroxggq63/18/2024 9:00 AM EDT Office Visit [facility] [address] [place] [address] Catherine Ayoub, ENTERTAINMENT REPORTER-SCRIPT EDITOR [address] [place], [place] [facility] ClinicStart: 12-18-2023 End: 03-58-4413EZ.doppler Lower extremity vein - leftVas venous duplex insufficiency lwr lt Vascular Ultrasound Routine Venous stasis ulcer of left ankle limited to breakdown of skin without varicose veins (CMS-HCC) Edema of left lower leg Expected: 12/18/2023, Expires: 12/17/2024[facility] Work Phone: Comment on above:Expected: 12/18/2023, Expires: 12/17/2024Start: 12-18-2023 End: 73-59-2173Ytyluxt encounter obsuvuxnn58/11/2024 9:00 AM EDT Office Visit [facility] [address] [place] [address] Catherine Ayoub, ENTERTAINMENT REPORTER-[facility] [address] [facility] [place], [place] [facility] Hospitaltart: 94-04-1031Fpnlngdta vaccinationInfluenza VaccineProMiami Valley Hospital SystemStart: 47-56-0759IyeyghgxdUniversity Hospitals Geauga Medical Center Start: 77-20-3479Flkhuqkce aortic aneurysm screeningAbdominal Aortic Aneurysm (AAA) ScreenProMiami Valley Hospital SystemStart: 28-46-2291Uaym Risk ScreeningFall Risk ScreeningMercy Health St. [facility] SystemStart: 26-92-9856UVsF,Tdap and Td Vaccines (2 - Tdap)DTaP,Tdap and Td Vaccines (2 - Tdap)[facility] SystemStart: 10-02-0040Whinvhjdzyygxy of varicella zoster vaccineZoster (Shingles) Vaccine (1 of 2)[facility] SystemStart: 31-99-1694Iwvjc BMI ScreeningAdult BMI ScreeningProMiami Valley Hospital SystemStart: 38-51-7149Oqblclobcl ScreeningDepression ScreeningMercy Health St. [facility] SystemStart: 04-02-1951Medicare Annual Wellness Visit Medicare Annual Wellness VisitDoctors HospitalComprehensive metabolic 2000 panel - Serum or PlasmaUniversity Hospitals Geauga Medical CenterHolter monitor studyUniversity Hospitals Geauga Medical CenterPatient EducationHemorrhoids DiverticulosisGeorgetown Behavioral Hospital Work Phone: [place] Heart TransthoracicFirValley Presbyterian Hospital Immunizations Immunization DateImmunizationNotesCare KdqoboqqPfqpkcmg71-88-0975btfuihaogdbe conjugate vaccine, 13 valentBenloy Larry Other [facility]02-05-2019 pneumococcal Conjugate, unspecified formulation; Translations: [Need for prophylactic vaccination against Streptococcus pneumoniae (pneumococcus)]Reji Roy Other [facility] Box[facility] Other 10220175-54-3299tyfieuxkxq and tetanus toxoids, adsorbed for pediatric useAnthdale Ramon DPM Work Phone: NONH Healthcare Payers DatePayer CategoryPayerPolicy [id number] MEDICARE ADVANTAGE [id number]-agy [id number] 2016MedicareAETNA MEDICARE AETNA MEDICARE PLAN (PPO) [id number] 2016-Present [phone] [address] [place] [id number] 2016Medicare HMOAETNA MEDICARE Member Subscriber Plan / Payer (Effective 2016-Present) Name: Rebeca Nicole Relation to Subscriber: Self Name: Rebeca Nicole Payer ID: 1 (NAIC) 02 Type: Not on file Address: [facility] [address] [place] [id number] 1960Medicare [id number] [id number] 2.16840.1.903848.3.57[id number] 2.160.1.184155.3.57[id number] 2.16840.1.586089.3.57[id number] 2.16840.1.020317.3.57[id number] 2.16840.1.609312.3.57[id number] 2.16840.1.282875.3.57[id number] 2.16840.1.114964.3.57[id number] 2.16840.1.990026.3.57[id number] 2.16840.1.386340.3.57[id number] 2.16840.1.756722.3.579.[id number] 2.16840.1.735429.3.57[id number] 2.16.840.1.674564.3.579.[id number] 2.16.840.1.980689.3.57[id number] 2.16.840.1.573849.3.579.[id number] 2.16.840.1.261782.3.579.2.51[id number] 2.16.840.1.100592.3.57[id number] 2.840.1.641061.3.579.2.7[id number] 2.16840.1.963000.3.57[id number] 2.16.840.1.033218.3.579.[id number] 2.840.1.654721.3.579.2.72[id number] 2.0.1.131483.3.579.2.[id number] 2.16840.1.621618.3.57[id number] [id number] Health InsuranceAetna Mcr PFFS Non JmYFMD0LZS [id number]-47ze-vz762x0j04znOsxbfbsXniwglduf [facility] [id number] [id number]-[id number] 2.16.840.1.3[id number] 2.16.840.1.768777.3.579.2.531 [id number] 2.16.840.1.900711.3.579.2.531 Social History DateTypeDetailFacilityStart: 11-19-2023 End: 55-44-2175Izs Assigned At [facility] BoxC Other Start: 05-09-2022 End: 08-78-8651Akdztko smoking status NHISEx-smoker (finding)[facility] Hospitaltart: 62-14-7330Azu [facility]igned At [facility] Systemtart: 04-29-1970 End: 83-60-5879Rgbmiyh of tobacco useCurrent smokerMercy Health St. [facility] Medical [facility] SystemStart: 04-29-1970 End: 60-39-1190Vnulchu of tobacco useCigarette SmokerNONH HealthcareStart: 11-05-2023 End: 75-03-3227Pxiyginvrt smoked current (pack per day) - Reported1.5NONH HealthcareStart: 11-05-2023 End: 14-92-2990Kdjnfry use and exposureSmokeless tobacco non-userMercy Health St. Vincent Medical Center SystemStart: 11-19-2023 End: 40-57-7344Igtilmpws beverage intakeEx-drinker (finding)[facility] Start: 88-25-2063Ooxlkmq CommentLast smoked >10 yearsNONH HealthcareStart: 12-45-0425Nkmlwti CommentOccasionallyNONH HealthcareStart: 93-34-6903Wjk assigned at birthNot on fileMercy Health St. [facility] Medical Center SystemStart: 02-26-2024 End: 89-04-8544Wnuqdaaln beverage intakeLifetime non-drinker (finding)[facility]ctors HospitalChildcareUnknoPaynesville Hospital SystemStart: 11-11-2014 End: 41-10-2481ZuhGetd (finding)[facility] Medical Equipment Procedure CodeEquipment CodeEquipment Original TextEquipment IdentifierDates Fusion, spine, lumbar, XLIFSTRATOFUSE DBM 10CCFDAStart: 61-33-4668Gdfojt, spine, lumbar, XLIFBone-screw internal spinal fixation system, non-sterile ()[id number] FDAStart: 95-05-2168Ofzrqy, spine, lumbar, XLIFBone-screw internal spinal fixation system, non-sterile()[id number] FDAStart: 90-96-8358Xldava, spine, lumbar, XLIFBone-screw internal spinal fixation system, non-sterile()[id number] FDAStart: 06-42-3869Lhjnpy, spine, lumbar, XLIF STRATOFUSE DBM 10CCFDAStart: 19-92-7518Vraacc, spine, lumbar, XLIFBone-screw internal spinal fixation system, non-sterile()[id number] FDAStart: 72-55-2504Kmgiqz, spine, lumbar, XLIFBone-screw internal spinal fixation system, non-sterile()[id number] FDAStart: 86-25-8461Ecwezi, spine, lumbar, XLIF Bone-screw internal spinal fixation system, non-sterile()[id number] FDA Start: 87-02-5327Trafjl, spine, lumbar, XLIFSTRATOFUSE DBM 5CCFDAStart: 22-60-7225Mlkkec, spine, lumbar, XLIFXLIF 3 LEVEL MAS REDUCTIONFDAStart: 30-41-3058Yjzwga, spine, lumbar, XLIFSpinal fusion graft kit ()[id number])[id number] FDAStart: 13-99-9107Hfhavf, spine, lumbar, XLIFSpinal fusion graft kit()[id number])[id number] FDAStart: 64-56-6505Ldrtyf, spine, lumbar, XLIFMetallic spinal fusion cage, non-sterile()[id number] FDAStart: 92-08-3678Ovjnpd, spine, lumbar, XLIF Metallic spinal fusion cage, non-sterile()[id number] FDAStart: 03-02-2019 Fusion, spine, lumbar, XLIFMetallic spinal fusion cage, non-sterile [id number] FDAStart: 91-77-5975Fopdna, spine, lumbar, XLIFSTRATOFUSE DBM 10CCFDAStart: 56-27-0805Olpttp, spine, lumbar, XLIFSTRATOFUSE DBM 10CCFDAStart: 44-71-1724Ndcamp, spine, lumbar, XLIFSTRATOFUSE DBM 5CCFDAStart: 03-02-2019 Fusion, spine, lumbar, XLIFXLIF 3 LEVEL MAS REDUCTIONFDAStart: 60-15-9150Vgxpec, spine, lumbar, XLIFSTRATOFUSE DBM 10CCFDAStart: 56-39-0205Tfilwd, spine, lumbar, XLIFSTRATOFUSE DBM 10CCFDAStart: 29-52-7041Mlnzfu, spine, lumbar, XLIFSTRATOFUSE DBM 5CCFDAStart: 65-45-8942Cfhlpp, spine, lumbar, XLIFXLIF 3 LEVEL MAS REDUCTION FDAStart: 31-20-4412Sahbil, spine, lumbar, XLIFSTRATOFUSE DBM 10CCFDAStart: 27-48-9530Ylwtrj, spine, lumbar, XLIFSTRATOFUSE DBM 10CCFDAStart: 03-02-2019 Fusion, spine, lumbar, XLIFSTRATOFUSE DBM 5CCFDAStart: 51-70-2159Gmcnef, spine, lumbar, XLIFXLIF 3 LEVEL MAS REDUCTIONFDAStart: 05-96-9048Jqnhip, spine, lumbar, XLIFSTRATOFUSE DBM 10CCFDAStart: 36-46-4818Tjnvsw, spine, lumbar, XLIFSTRATOFUSE DBM 10CCFDAStart: 82-09-6140Aregdt, spine, lumbar, XLIFSTRATOFUSE DBM 5CCFDA Start: 92-96-6181Rzdttq, spine, lumbar, XLIFXLIF 3 LEVEL MAS REDUCTIONFDAStart: 56-64-8550Gbfonk, spine, lumbar, XLIFSTRATOFUSE DBM 10CCFDAStart: 03-02-2019 Fusion, spine, lumbar, XLIFSTRATOFUSE DBM 10CCFDAStart: 43-11-4427Uajckx, spine, lumbar, XLIFSTRATOFUSE DBM 5CCFDAStart: 81-52-3433Zgdujb, spine, lumbar, XLIF XLIF 3 LEVEL MAS REDUCTIONFDAStart: 42-67-0146Driylr, spine, lumbar, XLIF STRATOFUSE DBM 10CCFDAStart: 75-50-1676Vbhkxx, spine, lumbar, XLIFSTRATOFUSE DBM 10CCFDAStart: 08-09-3867Aydkjw, spine, lumbar, XLIFSTRATOFUSE DBM 5CCFDAStart: 30-23-2987Dtezwa, spine, lumbar, XLIFXLIF 3 LEVEL MAS REDUCTIONFDAStart: 35-38-8247Gejcip, spine, lumbar, XLIFSTRATOFUSE DBM 10CCFDAStart: 03-02-2019 Fusion, spine, lumbar, XLIFSTRATOFUSE DBM 10CCFDAStart: 01-61-1911Tppprd, spine, lumbar, XLIFSTRATOFUSE DBM 5CCFDAStart: 98-61-6092Qnubqh, spine, lumbar, XLIF XLIF 3 LEVEL MAS REDUCTIONFDAStart: 03-02-2019 Goals DatePatient GoalDesired Activity/State Clinical Notes 12-26-2021 to 02-11-2025 Note Date & SvalFgxcLtkmcgpr70-40-4052 NotePatient: Rebeca Sarmientogabriel Procedure Summary Date: 02/11/25 Room / Location: [facility] / [facility] (Cath) Anesthesia Start: 1214 Anesthesia Stop: 1501 Procedure: Ablation a-fib w/ pvi Diagnosis: Paroxysmal atrial fibrillation (CMS/HCC) (Paroxysmal atrial fibrillation (CMS/HCC) [I48.0]) Providers: Magdy Quick MD Responsible Provider: Tono Martinez MD Anesthesia Type: general ASA Status: 3 Anesthesia Type: general Vitals Value Taken Time BP 167/95 02/11/25 15:17 Temp 36 ???C (96.8 ???F) 02/11/25 15:00 Pulse 58 02/11/25 15:29 Resp 9 02/11/25 15:29 SpO2 99 % 02/11/25 15:29 Vitals shown include unfiled device data. Anesthesia Post Evaluation Patient location during evaluation: PACU Patient participation: complete - patient participated Level of consciousness: awake and alert Pain score: 1 Pain management: adequate Multimodal analgesia pain management approach Airway patency: patent Two or more strategies used to mitigate risk of obstructive sleep apnea Cardiovascular status: hemodynamically stable Respiratory status: nasal cannula and nonlabored ventilation Hydration status: euvolemic Patient is hemodynamically stable and is able to be discharged from PACU per anesthesia protocol. There were no known notable events for this encounter.[facility]11-06-2025 NotePatient: Rebeca Nicole Procedure Summary Date: 02/11/25 Room / Location: [facility] WELT DRAWER 1 EP / [facility] VASCULAR LAB (Cath) Anesthesia Start: 1214 Anesthesia Stop: 1501 Procedure: Ablation a-fib w/ pvi Diagnosis: Paroxysmal atrial fibrillation (CMS/HCC) (Paroxysmal atrial fibrillation (CMS/HCC) [I48.0]) Providers: Magdy Quick MD Responsible Provider: Tono Martinez MD Anesthesia Type: general ASA Status: 3 Anesthesia Post Transport Note Transport to: PACU O2 Route: nasal cannula Oxygen Flow (L/min): 3 Patient Monitor: transport monitor Transport: uneventful [facility] condition is: [facility] ATRIAL FIBRILLATION ABLATION PROCEDURE NOTE DATE OF PROCEDURE: 02/11/2025 PERFORMING PHYSICIAN: Dr. Magdy Quick ARMHOLE BASTER HAND: Dr Rosanna Heart ARMHOLE BASTER HAND: CHICHI CONSENT: Patient NAME OF THE PROCEDURE: [...] line placement. FLUROSCOPY: 17.4min/ [id number] EBL: 20cc PROCEDURE NOTE: Pt was brought to EP lab and he was in Atrial paced rhtyhm. Thereafter, we proceeded to do atrial fibrillation ablation. Both the groins were then prepared and draped. [...] and then position rotated to 36degrees to getnew location and repeat PFA energy were provided. Then this process was repeated in the flower configuration in each veins. Additional energy lesions were given to ensure there was good isolation. Exit block verified with pacing in the veins. I decided to proceed to the right atrium and then proceeded to verify CTI ablation. Bidirectional block was demonstrated with pacing revealing a timing of 145ms. I performed voltage mapping which revealed CTI block also. Burst pacing @ 280sput patient into atrial flutter [...] showed no pericardial effusion, same as baseline. ICE catheter and all catheters were removed. Venous sheaths were pulled, and hemostasis achieved with Perclose sutures and Vascade XL occlusion device. He was transferred to observation bay and then to hospital room for observation. Arterial sheath was pulled and Mynx closure device was used for hemostasis. LA baseline (mmHg) 1st and 2nd 03/04 HR 68 LA 600ms pacing (mmHg) / LA 400ms pacing (mmHg) NA AHms 69 HVms 67 VERPms 600/300, VA conduction- AV Wenkebach ms 470 AH jump ms NA AVNERP ms 600/290 AERP ms 600/280 POST PROCEDURE DIAGNOSIS 1. Persistent atrial fibrillation s/p PVI 2. Prior CTI ablation with bidirectional block verified 3. Normal LA voltage 4. Induced atypical flutter with CL of 300ms and 320ms. 5 (more content not included)...[facility]11-06-2025 NoteAirway Date/Time: 02/11/2025 12:24 PM Reason: elective Airway not difficult General Information and Staff Patient location during procedure: OR Anesthesiologist: Tono Martinez MD Resident/UNPAID INTERN/CAA: Nancy Schmitt MD Performed: resident/UNPAID INTERN/CAA Learner assisted: MS 3 Isa Medina assisted [...] approach: 1 Number of other approaches [facility]: [facility] 02-02-2025 NoteUT Electrophysiology Consult Note [place] [facility] Reason for visit: s/p flutter ablation 02/02/2025 Patient is here to discuss about A-fib ablation. He is currently maintaining sinus rhythm on amiodarone. He has difficulty tolerating CPAP machine HPI: Rebeca Nicole is a 74 y.o. 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 He was admitted to the hospital and at that time was noted to have atrial flutter with ventricular rate of 150 beats a minute. At that time he was seen by me as a part of inpatient consult and then taken for flutter ablation on 08/21/2024. He was noted to be in atrial flutter with a cycle length of 280 ms. During ablation the tachycardia terminated. Bidirectional block was noted although the exact number was not mentioned in the report. Patient was subsequently discharged and then seen by Jyamie Douglas who had placed an event monitor. Event monitor revealed apparent episodes of atrial fibrillation as seen on August 30, 2024 PMH: Medical History[1] PSH: Surgical History[2] SH: Social Drivers of Health Tobacco Use: Medium Risk (02/02/2025) Patient History Smoking Tobacco Use: Former Smokeless [...] Year: No Utilities: Not At Risk (08/20/2024) [facility] Utilities Threatened with loss of utilities: No Health Literacy: Not on file Allergies: Allergies[3] Weight: 149kg Visit Vitals BP 124/76 (BP Location: Right arm, Patient Position: Sitting) Pulse 58 Ht 1.829 m (6') Wt (!) 149 kg (328 lb) SpO2 94% BMI 44.48 kg/m??? Smoking Status Former BSA 2.75 m??? Meds: Medications Ordered Prior to Encounter[4] ROS: Cardio Basic Cardiovascular Symptoms: no lightheadedness, [...] no headaches Psychiatric Psych: no depression, feeling safe in relationship, no alcohol abuse, Hematologic/Lymphatic Hematologic/Lymphatic no swollen glands, no bruising Physical Exam: Constitutional General Appearance: well-nourished, well-developed, appears stated age Level of Distress: comfortable Eyes TRAV Neck Neck: supple, trachea midline Carotid Arteries: bilateral normal upstroke, no bruits Jugular Veins: normal jugular venous pressure Thyroid: not enlarged Lungs Respiratory Effort: unlabored Chest Exam: normal curvature, no thoracic deformity Auscultation: clear, no wheezing, no rales, no rhonchi Cardiovascular Chest wall: Rate And Rhythm: regular Heart Sounds: normal S1, normal s2, no gallop Systolic Murmur: not heard Diastolic Murmur: not heard Extremities: no cyanosis, no edema, no peripheral signs of emboli Peripheral Pulses Radial Pulse: normal Abdomen Inspection and Palpation: soft, non distended, no bruit, non tender Neurologic Gait: normal gait Labs: @LABRESULTS@ No results found for: CHOLESTEROL (more content not included)...[facility]08-25-2025 History of Present illness Narrative* Morales Ramon, DPM - 11/30/2024 9:45 AM EDT Images from the original note were not included. Subjective Patient ID: See Nicole is a 74 y.o. male who presents for Callouses (See Nicole is a 74y.o. male. Established pt presents today for callus debridement. SS: 14). HPI Established patient returns to clinic for palliative foot care. Review of Systems Constitutional: Negative for activity change and appetite change. Respiratory: Negative for chest tightness and shortness of breath. Cardiovascular: Positive for leg swelling. Negative for chest pain. Musculoskeletal: Positive for arthralgias. Skin: Negative for color change and wound. Neurological: Positive for weakness and numbness. Psychiatric/Behavioral: Negative for agitation and behavioral problems. Hematological: Does not bruise/bleed easily. Endocrine: Negative for cold intolerance and heat intolerance. Allergic/Immunologic: Negative for immunocompromised state. Medications Current Outpatient Medications: amiodarone (Pacerone) 200 MG tablet, Take by mouth, Disp: , Rfl: ammonium lactate (Amlactin) 12 % cream, Apply topically Daily, Disp: 140 g, Rfl: 3 cholecalciferol (Vitamin D-3) 50 MCG (1999 UT) capsule, 2,000 Units., Disp: , Rfl: Eliquis 5 MG tablet, Take 5 mg by mouth in the morning and 5 mg before bedtime., Disp: , Rfl: metoprolol succinate XL (Toprol-XL) 25 MG 24 hr tablet, TAKE 1 TABLET (25 MG) BY MOUTH IN THE MORNING . DO NOT CRUSH OR CHEW, Disp: , Rfl: minocycline 100 MG capsule, [...] hyperkeratotic tissue noted plantar 5th metatarsal head, bilaterally. Skin lines pass through the lesions, no pinpoint, thrombosed capillaries. Tender with direct [...] and callosities L84 2. Onychomycosis B35.1 3. Onychodystrophy L60.3 4. Right foot pain M79.671 5. Left foot pain M79.672 Patient examined and evaluated. Eight toenails debrided in length and thickness today utilizing a nail Nipper and bur diamond grinder without incident. Hyperkeratotic tissue bilaterally debrided by me with asterile 15. Blade without incident. Patient noted relief of symptoms after debridement. Recommend applying ammonium lactate cream daily and using pumice stone debridement regularly to reduce hyperkeratotic buildup. Patient wishes to follow up as needed. [...] understanding. Morales Ramon DPM documented in this encounterCapital Region Medical [id number] NoteUT Electrophysiology Consult Note [place] [facility] Reason for visit: s/p flutter ablation HPI: Rebeca Nicole is a 74 y.o. 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 He was admitted to the hospital and at that time was noted to have atrial flutter with ventricular rate of 150 beats a minute. At that time he was seen by me as a part of inpatient consult and then taken for flutter ablation on 08/21/2024. He was noted to be in atrial flutter with a cycle length of 280 ms. During ablation the tachycardia terminated. Bidirectional block was noted although the exact number was not mentioned in the report. Patient was subsequently discharged and then seen by Jaymie Douglas who had placed an event monitor. Event monitor revealed apparent episodes of atrial fibrillation as seen on August 30, 2024 PMH: Medical History[1] PSH: Surgical History[2] SH: Social Drivers of Health Tobacco Use: Medium Risk (10/27/2024) Patient History Smoking Tobacco Use: Former Smokeless [...] Year: No Utilities: Not At Risk (08/20/2024) [facility] Utilities Threatened with loss of utilities: No Health Literacy: Not on file Allergies: Allergies[3] Weight: 142kg Visit Vitals BP 140/80 (BP Location: Right arm, Patient Position: Sitting) Pulse 51 Ht 1.829 m (6') Wt (!) 142 kg (314 lb) SpO2 98% BMI 42.59 kg/m??? Smoking Status Former BSA 2.69 m??? Meds: Medications Ordered Prior to Encounter[4] ROS: Cardio Basic Cardiovascular Symptoms: no lightheadedness, [...] no headaches Psychiatric Psych: no depression, feeling safe in relationship, no alcohol abuse, Hematologic/Lymphatic Hematologic/Lymphatic no swollen glands, no bruising Physical Exam: Constitutional General Appearance: well-nourished, well-developed, appears stated age Level of Distress: comfortable Eyes TRAV Neck Neck: supple, trachea midline Carotid Arteries: bilateral normal upstroke, no bruits Jugular Veins: normal jugular venous pressure Thyroid: not enlarged Lungs Respiratory Effort: unlabored Chest Exam: normal curvature, no thoracic deformity Auscultation: clear, no wheezing, no rales, no rhonchi Cardiovascular Chest wall: Rate And Rhythm: regular Heart Sounds: normal S1, normal s2, no gallop Systolic Murmur: not heard Diastolic Murmur: not heard Extremities: no cyanosis, no edema, no peripheral signs of emboli Peripheral Pulses Radial Pulse: normal Abdomen Inspection and Palpation: soft, non distended, no bruit, non tender Neurologic Gait: normal gait Labs: @LABRESULTS@ No results found for: CHOLESTEROL TOTAL , HDL , LDL CALC , LDL DIRECT , TRIGLYCERIDES , TSH , T3 TOTAL , T4 TOTAL , THYROID PEROXIDASE AB , BNP EKG: Encounter Date: 08/20/24 ECG 12 (more content not included)...[facility] 10-06-2024 Evaluation note* Diagnosis Onset Date Resolution Status Admit Date Anemia acuteJuly 2024 9:00amAtrial flutteracuteJuly 2024 9:00amGERD (gastroesophageal reflux disease)acuteJuly 2024 9:00amHypertensionacuteJuly 2024 9:00amLumbar spondylosisacuteJuly 2024 9:00amNSVT (nonsustained ventricular tachycardia)acuteJuly 2024 9:00amObesityacuteJuly 2024 9:00amOSA (obstructive sleep apnea)acuteJuly 2024 9:00amScreening PSA (prostate specific antigen)acuteJuly 2024 9:00amMedicare annual wellness visit, subsequentnoneactiveJuly 2024 9:00am [facility] Work Phone: 1(707) 852-490207-01-2025 Evaluation note* Diagnosis Onset Date Resolution Status Admit Date Anemia acuteJuly 2024 9:00amAtrial flutteracuteJuly 2024 9:00amGERD (gastroesophageal reflux disease)acuteJuly 2024 9:00amHypertensionacuteJuly 2024 9:00amLumbar spondylosisacuteJuly 2024 9:00amNSVT (nonsustained ventricular tachycardia)acuteJuly 2024 9:00amObesityacuteJuly 2024 9:00amOSA (obstructive sleep apnea)acuteJuly 2024 9:00amScreening PSA (prostate specific antigen)acuteJuly 2024 9:00amMedicare annual wellness visit, subsequentnoneactiveJuly 2024 9:00amAdverse reaction to zazv-umc-uirdeur medicationacuteAugust 2024 10:43amAtrial fibrillation acuteAugust 2024 10:43amPruritic erythematous rashacuteAugust 2024 10:43am [facility] Work Phone: 1(370) 635-103406-12-2025 NotePlease let him know his stress test was normal. Follow up as planned with Dr. Quick. Thanks![facility]05-20-2025 NoteCardiovascular Medicine [facility] SUBJECTIVE Chief Complaint Patient presents with Atrial Flutter Hospital Follow-up Rebeca Nicole is a 74 y.o. male here for hospital follow-up. His Bogdan accompanied him today. 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 PMHx: A.flutter s/p CTI ablation 08/21/24, HTN, HLD, PVCs HPI Patient was recently transferred from [facility] to [facility] due to suspected V-tach vs tachyarrhythmia/SVT noted on his recent event monitor. He was seen by EP cardiology, Dr. Altamirano who reviewed his event monitor and telemetry strips. Dr. Altamirano noted pt had episodes of SVT with [...] aflutter PVCs HTN Obesity Admission Diagnosis: V-tach ([facility]) [I47.20] Hospital course: Cardiology and EP saw [...] effusion. 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 R (more content not included)...[facility]05-20-2025 NotePatient is here today in office for a follow S/P ablation an to discuss LAAO. Patient states he is feeling fine, he has had no issues through the all of this. Patient denies cardiac complaints. Review of Systems Constitutional: Negative.[facility]05-17-2025 Note Cardiology Inpatient Progress Note Subjective Reason [...] is consistent with his baseline. 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 Signed Anika Lugo MD [facility] 08/22/2024 10:32 AM CC: [facility]05-16-2025 NoteProblem: Safety - Adult Goal: Free from fall [...] for interpreters to assist at discharge as neededHarrison Community Hospital05-16-2025 Note- ANRT sv fib/flutter - Etiology unknown - Getting EP study todayH[facility]05-16-2025 NoteUse pantoprazole DVT prophylaxis using VTE protocols per [place] [facility] placed on Protonix Close Monitoring of pt is ordered. N.p.o. after midnight Consult cardiology. I discussed the plan of care with the patient and nursing staff in the room and everyone appears to be in agreementHarrison Community Hospital05-16-2025 Note-Blood pressure stable - Patient denies having any prior history of high blood pressure - Will monitor very closely and if numbers continue to be high we will treat [facility]05-16-2025 NoteEP studay todayH[facility] Hospital05-16-2025 Note-Weight loss is extremely important for this patient - Diet and exercise modalities to be usedHarrison Community Hospital 08-21-2024 NoteHospital Medicine Daily Progress Note - 08/21/2024 1:23 PM; Room: [address] [place] [address] Admission: 08/20/2024 1:53 AM; Length of stay: 1 days THE HOSPITALIST TEAM PREFERS TO USE Dekko FOR NON-URGENT COMMUNICATION 7AM-7PM. IF I DO NOT RESPOND WITHIN 20 MINUTES OR URGENT MATTERS, PLEASE CALL THROUGH THE [facility]. FROM 7PM-7AM, PLEASE PAGE [phone](COVR). Code Status: Full Code Barriers to Discharge: [...] Assessment and Plan Assessment & Plan V-tach ([facility]) - ANRT sv fib/flutter - Etiology unknown [...] pantoprazole DVT prophylaxis using VTE protocols per [place] [facility] placed on Protonix Close Monitoring of [...] Academy of Nutrition and Dietetics and the [place] Society of Enteral and Parenteral Nutrition, meets [...] , FREET4 , CORTISOL , FEV1 , ETH6LIG , DLCO , RVSP , HDL , LDL No results found for: YRKEORTX29 , IRON , TIBC , C3 , C4 , RONI , CANCA , ASO , PSA , CEA , CA125 , CA199 , AFP , CA153 Imaging Complete Echo (TTE) w/wo Imaging Agent, Strain, 3D, Bubble Study 1 1 [facility] Heart Station [address] [place] [address] [phone] (fax) Echocardiogram-[facility] Name: REBECA NICOLE Study Date: 08/20/2024 02:24 PM B/P: 125 mmHg/96 mmHg HR: 57 bpm Date of : 1950 Location: [facility] Height: 78 in. Age: 74 year(s) Patient Room: 3167 Weight: 310 lb. Gender: Male Patient Status: InPt BSA: 2.72 m2 Indication: Paroxysmal atrial tachycardia Examination: Echocardiogram (Complete), Lumason Contrast Image Quality: Fair Patient Consent: Procedure explained to patient Exam Details Contrast: I.V. dose of Lumason Conclusions Left Ventricle: The left ventricle is normal size. Global left ventricular (more content not included)...[facility]05-16-2025 Note08/21/24 1159 Admission Assessment Questions Verify insurance with [...] Status Interested Does the patient have a heel caser assigned to them through their insurance? No Living Arrangement (Current/Prior to Hospitalization) Private residence (with ) Does the patient have history of HHC or SNF? Yes (through [employer] insurance gets yearly nurse visit.) Assistive Device [...] able to send link and activate MyChart? YesUnTriHealth [facility]05-16-2025 Note Attestation signed by Giovani Monique MD [...] 650 mg, 650 mg, oral, q6h PRN, Lizzie Vuong MD [Held by provider] apixaban (Eliquis) tablet 5 mg, 5 mg, oral, BID, Dwight Cruz MD, 5 mg at 08/20/242027 melatonin tablet 3 mg, 3 mg, oral, Nightly, Malika Ramos MD, 3 mg at 08/20/242026 [Held by provider] metoprolol succinate XL (Toprol-XL) 24 hr tablet 25 mg, 25 mg, oral, Daily, wDight Cruz MD, 25 mg at 08/20/241746 sennosides-docusate sodium (Melissa-Colace) 8.6-50 mg per tablet 1 tablet, 1 tablet, oral, BID PRN, Lizzie Vuong MD Insert peripheral IV, , , Once AND Saline lock IV, , , Once AND sodium chloride flush 10 mL, 10 mL, intravenous, q8h PRN, Lizzie Vuong MD Objective: Patient Vitals for the [...] Value Ventricular Rate 55 Atrial Rate 55 LA Interval 180 QRS DURATION 104 QT Interval 456 QTC CALCULATION(BAZETT) 436 P [place] 41 R-[place] 1 T Wave [place] 34 Impression Sinus bradycardia with occasional Premature ventricular complexes Otherwise normal ECG No previous ECGs available Confirmed by Emerson GROSS, STEPHANIE Raushc ([id number]) on 08/20/2024 9:30:52 AM No results found for: CKTOTAL , CKMB , CKMBINDEX , TROPONINI Complete Echo (TTE) w/wo Imaging Agent, Strain, 3D, Bubble Study Result Date: 08/20/2024 1 1 [facility] Heart Station [address] [place] [address] [phone] (fax) Echocardiogram-[facility] Name: REBECA NICOLE Study Date: 08/20/2024 02:24 PM B/P: 125 mmHg/96 mmHg HR: 57 bpm Date of : 1950 Location: [facility] Height: 78 in. Age: 74 year(s) Patient [...] 102.4g/m??) RWT, MM 0. (more content not included)...[facility]05-16-2025 Note Problem: Safety - Adult Goal: Free from fall injury Outcome: Progressing Flowsheets (Taken 08/21/2024 0835) Free from fall injury: Assess patient frequently for physical needs Identify cognitive and physical deficits and behaviors that affect risk of falls [place] fall precautions as indicated by assessment Educate [...] not make progress toward the following goals. [facility]05-15-2025 NoteProblem: Safety - Adult Goal: Free from fall injury Outcome: Progressing Flowsheets (Taken 08/20/2024 2240) Free from fall injury: Assess patient frequently for physical needs Modify environment to reduce risk of injury Problem: Discharge Planning Goal: Discharge to home or other facility with appropriate resources Outcome: Progressing Flowsheets (Taken 08/20/20240) Discharge to home or other facility with [...] are exacerbated and prevent overall improvement and dischargeUnTriHealth [facility]05-15-2025 NotePhysical Therapy Physical Therapy Evaluation Patient Name: Rebeca [...] findings on his event monitor, transferred to [facility] overnight for further work-up. PT Diagnosis: Impaired activity tolerance/balance Additional time spent at end of evaluation/session educating patient on importance of continued mobility throughout the remainder of his admission. Resources including NA's, Mobility Aides/Techs. Patient Active Problem List Diagnosis V-tach ([facility]) HTN (hypertension) Morbid obesity ([facility]) GERD (gastroesophageal reflux disease) History reviewed. No [...] Level of Function Prior Function Level of [place]: Independent with ADLs and functional transfers, Independent [...] (including a wheelchair): N (more content not included)...[facility] 08-20-2024 NoteOccupational Therapy Occupational Therapy Evaluation Patient Name: Rebeca Nicole : 1950 Today's Date: 08/20/2024 Time In: 847 Time Out: 905 Rebeca Nicole is an 74 y.o. male who came from [facility] with V-tach on his event monitor and he was sent to the ER and then trasferred to [facility]. General Subjective: friendly and cooperative Patient Active [...] cane (sc, gb, hhs, rts, sock aid, grants manager) Home Layout: One level Home Access: Level entry Bathroom Shower/Tub: Tub/shower unit Prior Level of Function Prior Function Level of Storey: Independent with ADLs and functional transfers, Independent [...] Eating meals?: None (Independent) Total Score OT [facility]: 21 Assessment/Plan OT Assessment OT Impairments: Decreased ADL status, Decreased endurance, Decreased functional mobility OT Assessment/DIRECTOR HEMATOLOGY Summary: (neeeds skilled OT due to weakness [...] and standing 10 minutes 08/20/24 09/03/24 -- [facility]05-15-2025 Note-Weight loss is extremely important for this patient - Diet and exercise modalities to be usedUnTriHealth [facility] 08-20-2024 Note-Blood pressure today is 157/57. - Patient denies having any prior history of high blood pressure - Will monitor very closely and if numbers continue to be high we will treat [facility]05-15-2025 Note-Etiology unknown - Most excludes ACS as etiology - Will obtain twelve-lead EKG, troponins, and consult cardiology - Patient is currently started on subcu heparin and monitored very closely [facility]05-15-2025 NoteUse pantoprazole DVT prophylaxis using VTE protocols per [place] [facility] placed on Protonix Close Monitoring of pt is ordered. N.p.o. after midnight Consult cardiology. I discussed the plan of care with the patient and nursing staff in the room and everyone appears to be in agreementHarrison Community Hospital05-15-2025 NoteHospital Medicine History and Physical 08/20/2024 2:26 AM THE HOSPITALIST TEAM PREFERS TO USE Dekko FOR NON-URGENT COMMUNICATION 7AM-7PM. IF I DO NOT RESPOND WITHIN 20 MINUTES OR URGENT MATTERS, PLEASE CALL THROUGH THE [facility]. FROM 7PM-7AM, PLEASE PAGE [phone](COVR). Chief Complaint No chief complaint on file. History of Present Illness Rebeca Nicole is an 74 y.o. male who came from [facility] with V-tach on his event monitor and he was sent to the ER and then trasferred to [facility]. 74-year-old gentleman past medical history significant for morbid obesity, hypertension and GERD and of recent feeling extremely weak. He was transferred from [facility] where he was seen to [facility] after the ER physician spoke with a polytechnic registrar here at [place]. Patient was called by his PCP that [...] ventricular tachycardia he is being transferred to [facility] for further investigation and treatment. Monitor the patient, he denied chest pain, denies shortness of breath, denied nausea or vomiting, denied fever or chills. Apart from being morbidly obese the recent physical findings were unremarkable. Patient is being admitted to the hospital for observation and cardiology has been consulted to investigate the causation of the tachyarrhythmia/supraventricular tachycardia. While here at [facility] patient was sinus rhythm on the monitor [...] investigation of V. tach found on his hall monitor. Bradycardia, saw the patient here he [...] pantoprazole DVT prophylaxis using VTE protocols per [facility] placed on Protonix Close Monitoring of pt is ordered. N.p.o. after midnight Consult cardiology. I discussed the plan of care with the patient and nursing staff in the room and everyone appears to be in agreement VTE Prophylaxis: Heparin subcutaneous ----- Focus of this inpatient stay jay jay (more content not included)...[facility]04-22-2025 Evaluation note* Diagnosis Onset Date Resolution Status Admit Date Elevated BP without diagnosis of hyperte nsion acuteApril 2024 10:32amOSA (obstructive sleep apnea)acuteApril 2024 10:32amPalpitationsacuteApril 2024 10:32amAtrial flutteracuteMay 2024 9:16amGERD (gastroesophageal reflux disease)acuteMay 2024 9:16am HypertensionacuteMay 2024 9:16amNSVT (nonsustained ventricular tachycardia)acuteMay 2024 9:16amObesityacuteMay 2024 9:16amOSA (obstructive sleep apnea)acuteMay 2024 9:16amAnemiaacuteJuly 2024 9:00amAtrial flutteracuteJuly 2024 9:00amGERD (gastroesophageal reflux disease)acuteJuly 2024 9:00amHypertensionacuteJuly 2024 9:00amLumbar spondylosisacuteJuly 2024 9:00amNSVT (nonsustained ventricular tachycardia) acuteJuly 2024 9:00amObesityacuteJuly 2024 9:00amOSA (obstructive sleep apnea)acuteJuly 2024 9:00amScreening PSA (prostate specific antigen) acuteJuly 2024 9:00amMedicare annual wellness visit, subsequentnoneactive October 06, 2024 9:00am [facility] Work Phone: 1(327) 187-244104-02-2025 History of Present illness Narrative* Morales Ramon DPM - 2024 8:45 AM EDT Images [...] Rfl: 3 cholecalciferol (Vitamin D-3) 50 MCG (1999) capsule, [...] today utilizing a nail Nipper and electric precision thread grinder operator without incident. Patientwishes to follow [...] understanding. Morales Ramon DPM documented in this encounterCapital Region Medical [id number] Evaluation note* Diagnosis Onset Date Resolution Status Admit Date GERD (gastroesophageal reflux disease) acuteMarch 2024 8:53amOSA (obstructive sleep apnea)acuteApril 2024 10:32amPalpitationsacuteApril 2024 10:32am [facility] Work Phone: 1(381) 753-448103-17-2025 Evaluation note* Diagnosis Onset Date Resolution Status Admit Date GERD (gastroesophageal reflux disease) acuteMarch 2024 8:53amElevated BP without diagnosis of hypertensionacute July 28, 2024 10:32amOSA (obstructive sleep apnea)acuteApril 2024 10:32amPalpitationsacuteApril 2024 10:32amAtrial flutteracuteMay 2024 9:16amGERD (gastroesophageal reflux disease)acuteMay 2024 9:16am HypertensionacuteMay 2024 9:16amNSVT (nonsustained ventricular tachycardia)acuteMay 2024 9:16amObesityacuteMay 2024 9:16amOSA (obstructive sleep apnea)acuteMay 2024 9:16am [facility] Work Phone: 1(346) 547-311901-21-2025 History of Present illness Narrative* Morales Ramon [...] , Rfl: cholecalciferol (Vitamin D-3) 50 MCG (2000 UT) capsule, 2,000 Units., Disp: , Rfl: [...] Father Raleigh Nicole Heart disease Father Raleigh Vodipreeti Hypertension Father Raleigh Vodipreeti Cancer Father Raleigh [...] today utilizing a nail Nipper and electric precision thread grinder operator without incident. Patient will follow [...] understanding. Morales Ramon DPM documented in this encounterCapital Region Medical [id number] History of Present illness Narrative* Catherine Ayoub, ENTERTAINMENT REPORTER-SCRIPT EDITOR - 04/10/2024 8:00 AM EST Images from the original note were not included. Wound Care Progress Note Patient: Rebeca Nicole Date of : 1950 Chief Compliant: Left leg ulceration, follow up SUBJECTIVE/HPI: Rebeca is a 73 y.o. male who presents to [facility] for evaluation of 1 ulcer(s) [...] on the right lower ankle region mid Monica, 2024. Patient hasbeen following with podiatry for the [...] ms with multilevel great saphenous vein reflux. Sales Utility Representative vein with 4089 ms reflux time and 3.6 mm diameter noted in the proximal medial calf. General: This examination was performed in the upright position. Conclusions: RIGHT: No evidence of right common femoral vein deep vein thrombosis or significant reflux.LEFT: No evidence of deep or superficial vein thrombosis of the lower extremity. Femoropopliteal deep vein reflux. Sales Utility Representative vein reflux. Saphenofemoral junction and great saphenous [...] left ankle limited to breakdown of skin ([facility]) Venous insufficiency of left lower extremity [...] ankle region. 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 compliance skilled nursing goal: wound closure Patient verbalize ability to [...] electronic or other health record - CATHERINE AYOUB, ENTERTAINMENT REPORTER-SCRIPT EDITOR 04/10/24 9:08 AM Catherine Ayoub, ENTERTAINMENT REPORTER, SCRIPT EDITOR, CWS, COCN [facility]: [phone] Catherine Acuna Waldron, ENTERTAINMENT REPORTER-SCRIPT EDITOR 12/04/23 1106 Catherine Ayoub, ENTERTAINMENT REPORTER-SCRIPT EDITOR 12/18/23 1020 Catherine Acuna Anitra, ENTERTAINMENT REPORTER-SCRIPT EDITOR 12/18/23 1158 Catherine Acuna Anitra, ENTERTAINMENT REPORTER-SCRIPT EDITOR 12/25/23 1016 Catherine Acuna Anitra, ENTERTAINMENT REPORTER-SCRIPT EDITOR 01/03/24 1012 Catherine Acuna Anitra, ENTERTAINMENT REPORTER-SCRIPT EDITOR 01/10/24 0929 Catherine Acuna Waldron, ENTERTAINMENT REPORTER-SCRIPT EDITOR 01/22/24 0927 Catherine Acuna Anitra, ENTERTAINMENT REPORTER-SCRIPT EDITOR 02/05/24 1005 Catherine Acuna Anitra, ENTERTAINMENT REPORTER-SCRIPT EDITOR 02/19/24 0854 Catherine Ayoub, ENTERTAINMENT REPORTER-SCRIPT EDITOR 02/26/24 0932 Catherine Acuna Anitra, ENTERTAINMENT REPORTER-SCRIPT EDITOR 04/10/24 0913 documented in this [facility]01-03-2025 Instructions* Patient Instructions* Joycelyn [...] Wound drainage Type Description documented in this [facility]12-03-2024 Miscellaneous Notes* Telephone Encounter - Karly Canales - 03/10/2024 3:24 PM EST Returned patient VM and LM I will cancel procedure for Saturday along with postop appointments, but Icannot recommend proceeding or not regarding skin changes, but suggest he make a f/u appt with Dr. Cho unless he will see her in wound care soon. documented in this encounterDo[facility]12-[facility]24 Telephone encounter Note* Telephone Encounter - Karly Canales - 03/10/2024 3:24 PM EST Returned patient VM and LM I will cancel procedure for Saturday along with postop appointments, but Icannot recommend proceeding or not regarding skin changes, but suggest he make a f/u appt with Dr. Cho unless he will see her in wound care soon. [facility] myeasydocs [id number] Miscellaneous Notes* Telephone Encounter - Karly Canales - 02/28/2024 12:22 PM EST LM for patient I would like to move his procedure time to 9:30 on 03/13/24 arriving at 9:00 and asked him to return my call. documented in this encounterDoctors Hospital11-22-2024 Telephone encounter Note* Telephone Encounter - Karly Canales - 02/28/2024 12:22 PM EST LM for patient I would like to move his procedure time to 9:30 on 03/13/24 arriving at 9:00 and asked him to return my call. [facility] History of Present illness Narrative* Catherine Ayoub, LINDY-SCRIPT EDITOR - 02/26/2024 8:20 AM EST Images from the original note were not included. Wound Care Progress Note Patient: Rebeca Nicole Date of : 1950 Chief Compliant: Left leg ulceration, follow up SUBJECTIVE/HPI: Rebeca is a 73 y.o. male who presents to [facility] for evaluation of 1 ulcer(s) [...] ms with multilevel great saphenous vein reflux. Sales Utility Representative vein with 4089 ms reflux time and 3.6 mm diameter noted in the proximal medial calf. General: This examination was performed in the upright position. Conclusions: RIGHT: No evidence of right common femoral vein deep vein thrombosis or significant reflux.LEFT: No evidence of deep or superficial vein thrombosis of the lower extremity. Femoropopliteal deep vein reflux. Sales Utility Representative vein reflux. Saphenofemoral junction and great saphenous [...] 1 Traumatic Calf Posterior;Left;Lower (Active) Wound Image 02/26/24 08 Site Assessment Dry;Fragile;Clarence 02/26/24836 Melissa-wound Assessment Dry;Fragile;Intact 02/26/24836 Shape no open areas noted, scattered dry, fragile pink/red areas of skin to left lower leg anterior, medial, lateral 02/26/24 08 Wound Length (cm) 0 cm 02/26/24 08 Wound Width (cm) 0 cm 02/26/24 08 Wound Surface Area (cm^2) 0 cm^2 02/26/24 08 Wound Depth (cm) 0 cm 02/26/24 08 Wound Volume (cm^3) 0 cm^3 02/26/24 08 Change in Wound Size % 100 02/26/24836 Drainage Amount None 02/26/24836 Treatments Soak with;Vashe/Hypochlorous Acid 02/26/24836 Debridement Performed? N 02/26/24836 Dressing Type Other (Comment);Gauze Rolled/Kerlix 02/26/24836 Dressing Changed Changed 02/26/24836 Dressing Status Clean;Dry;Intact 02/26/24836 Assessment/Plan/Education: 1. Venous stasis ulcer of left ankle limited to breakdown of skin, unspecified whether varicose veins present ([facility]) 2. Edema of left lower leg [...] ankle region. 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 Patient verbalize ability to [...] or other health record - CATHERINE AYOUB APRN-SCRIPT EDITOR 02/26/24 9:28 AM Catherine Ayoub APRN, SCRIPT EDITOR, CWS, LUIS F [facility]: [phone] Catherine Acuna LINDY Ayuob-SCRIPT EDITOR 12/04/23 1106 Catherine Acuna Anitra, ENTERTAINMENT REPORTER-SCRIPT EDITOR 12/18/23 1020 Catherine Acuna Anitra, ENTERTAINMENT REPORTER-SCRIPT EDITOR 12/18/23 1158 Catherine Acuna Anitra, ENTERTAINMENT REPORTER-SCRIPT EDITOR 12/25/23 1016 Catherine Acuna Anitra, ENTERTAINMENT REPORTER-SCRIPT EDITOR 01/03/24 1012 Catherine Acuna Anitra, ENTERTAINMENT REPORTER-SCRIPT EDITOR 01/10/24 0929 Catherine Acuna Anitra, ENTERTAINMENT REPORTER-SCRIPT EDITOR 01/22/24 0927 Catherine Acuna Anitra, ENTERTAINMENT REPORTER-SCRIPT EDITOR 02/05/24 1005 Catherine Acuna Anitra, LINDY-SCRIPT EDITOR 02/19/24 0854 Catherine Acuna Anitra, LINDY-SCRIPT EDITOR 02/26/24 0932 documented in this encounterDoctors Hospital11-20-2024 Instructions* Patient Instructions* Bianca Berger RN - [...] Wound drainage Type Description documented in this encounterDoctors Hospital11-13-2024 History of Present illness Narrative* Catherine Ayoub, ENTERTAINMENT REPORTER-SCRIPT EDITOR - 02/19/2024 8:00 AM EST Images from the original note were not included. Wound Care Progress Note Patient: Rebeca Nicole Date of : 1950 Chief Compliant: Left leg ulceration, follow up SUBJECTIVE/HPI: Rebeca is a 73 y.o. male who presents to [facility] for evaluation of 1 ulcer(s) [...] ms with multilevel great saphenous vein reflux. Sales Utility Representative vein with 4089 ms reflux time and 3.6 mm diameter noted in the proximal medial calf. General: This examination was performed in the upright position. Conclusions: RIGHT: No evidence of right common femoral vein deep vein thrombosis or significant reflux.LEFT: No evidence of deep or superficial vein thrombosis of the lower extremity. Femoropopliteal deep vein reflux. Sales Utility Representative vein reflux. Saphenofemoral junction and great saphenous [...] x xa C4b - Lipodermatosclerosis or atrophie goreg C5 - Healed venous ulcer C6 - [...] ankle region. 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 Patient verbalize ability to [...] F [facility]: [phone] EMILY Proctor 12/04/23 1106 EMILY Proctor 12/18/23 1020 EMILY Proctor 12/18/23 1158 EMILY Proctor 12/25/23 1016 EMILY Proctor 01/03/24 1012 EMILY Proctor 01/10/24 0929 EMILY Proctor 01/22/24 0927 EMILY Proctor 02/05/24 1005 EMILY Proctor 02/19/24 0854 documented in this encounterDoctors Hospital11-13-2024 Instructions* Patient Instructions* Clare Mckeon RN - [...] Description small Serosanginous yellow documented in this encounterDoctors Hospital11-11-2024 History of Present illness Narrative* Morales Ramon [...] utilizing a nail nipper and electric bur diamond grinder without incident. All hyperkeratotic tissue of [...] understanding. Morales Ramon DPM documented in this encounterCapital Region Medical [id number] History of Present illness Narrative* Catherine Ayoub APRN-SCRIPT EDITOR - 02/05/2024 8:00 AM EDT Images from the original note were not included. Wound Care Progress Note Patient: Rebeca Nicole Date of : 1950 Chief Compliant: Left leg ulceration, follow up SUBJECTIVE/HPI: Rebeca is a 73 y.o. male who presents to [facility] for evaluation of 1 ulcer(s) [...] ms with multilevel great saphenous vein reflux. Sales Utility Representative vein with 4089 ms reflux time and 3.6 mm diameter noted in the proximal medial calf. General: This examination was performed in the upright position. Conclusions: RIGHT: No evidence of right common femoral vein deep vein thrombosis or significant reflux.LEFT: No evidence of deep or superficial vein thrombosis of the lower extremity. Femoropopliteal deep vein reflux. Sales Utility Representative vein reflux. Saphenofemoral junction and great saphenous [...] ankle region. 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 Patient verbalize ability to [...] F [facility]: [phone] Catherine Ayoub APRN-SHARLENE 12/04/23 1106 Catherine Ayoub APRN-SHARLENE 12/18/23 1020 Catherine Ayoub APRN-SHARLENE 12/18/23 1158 EMILY Proctor 12/25/23 1016 EMILY Proctor 01/03/24 1012 Catherine Ayoub APRN-SHARLENE 01/10/24 0929 Catherine Ayoub APRN-SHARLENE 01/22/24 0927 Catherine Ayoub APRN-SHARLENE 02/05/24 1005 documented in this encounterDoctors Hospital10-30-2024 Instructions* Patient Instructions* Clare Mckeon RN - [...] STEP 6: Secure with double layer tubi wheel loader operator Moisturize all dry and intact skin with [...] Description small Serosanginous yellow documented in this encounterDoctors Hospital10-28-2024 History of Present illness Narrative* Lan Cho MD - 02/03/2024 10:00 AM EDT Images from the original note were not included. [facility] [address] [facility] [id number] Subjective: Patient ID: Rebeca Nicole is a [...] [place] carethrough the [place] care [place]. He tried Unna boots twice with no [...] left ankle limited to breakdown of skin ([facility]) Current Outpatient Medications: gentamicin (GARAMYCIN) 0.1 % [...] to breakdown of skin with varicose veins ([facility] [place], [place] Plan: Plan The patient presents to the office with chronic, non-healing venous ulcer in the left lower extremity with delayed wound healing despite wound care and use of compression therapy. The patient had a venous insufficiency scan which showed multilevel reflux of the left great saphenous vein, the left popliteal vein, and a flight hostess vein in the left calf. I have reviewed testing with the patient and believe he is a good candidate for RFA ablation of theleft great saphenous vein. I explained to the patient that the purpose of the procedure is to help his left leg venous ulcer to heal and to prevent future ulcers from occurring. I explained he does have reflux in a flight hostess vein in the left calf which may [...] ablation. We will schedule the patient at [facility] once he is approved by insurance. This note was created with the assistance of a speech recognition program. While intending to generate a timely document that accurately reflects the content of the visit, no guarantee can be provided that every grammatical or spelling mistake has been or will be identified or corrected. Thank you for your understanding. Lan Cho MD documented in this encounterDoctors Hospital10-16-2024 History of Present illness Narrative* Catherine Acuna Anitra, ENTERTAINMENT REPORTER-SCRIPT EDITOR - 01/22/2024 8:00 AM EDT Images from the original note were not included. Wound Care Progress Note Patient: Rebeca Nicole Date of : 1950 Chief Compliant: Left leg ulceration, follow up SUBJECTIVE/HPI: Rebeca is a 73 y.o. male who presents to [facility] for evaluation of 1 ulcer(s) [...] ms with multilevel great saphenous vein reflux. Sales Utility Representative vein with 4089 ms reflux time and 3.6 mm diameter noted in the proximal medial calf. General: This examination was performed in the upright position. Conclusions: RIGHT: No evidence of right common femoral vein deep vein thrombosis or significant reflux.LEFT: No evidence of deep or superficial vein thrombosis of the lower extremity. Femoropopliteal deep vein reflux. Sales Utility Representative vein reflux. Saphenofemoral junction and great saphenous [...] left ankle limited to breakdown of skin ([facility]) Past Medical History: Diagnosis Date Arthritis [...] Application 1 Application topical PRN Catherine Ayoub, LINDY-SCRIPT EDITOR Allergies Allergen Reactions Doxycycline Hives Hives Sulfamethoxazole-Trimethoprim [...] ankle region. 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 Patient verbalize ability to [...] 01/22/24 8:34 AM Catherine Ayoub APRN, SHARLENE, CWBlu, LUIS F Hollidayt [facility]: [phone] EMILY Proctor 12/04/23 1106 EMILY Proctor 12/18/23 1020 EMILY Proctor 12/18/23 1158 EMILY Proctor 12/25/23 1016 EMILY Proctor 01/03/24 1012 EMILY Proctor 01/10/24 0929 EMILY Proctor 01/22/24 0927 documented in this encounterDoctors Hospital10-16-2024 Instructions* Patient Instructions* Lamar Bee RN - [...] STEP 6: Secure with double layer tubi wheel loader operator Moisturize all dry and intact skin with [...] Description small Serosanginous yellow documented in this encounterDoctors Hospital10-09-2024 History of Present illness Narrative* Sheyla Way, ENTERTAINMENT REPORTER-SCRIPT EDITOR - 01/15/2024 8:00 AM EDT Images from the original note were not included. Wound Care Progress Note Patient: Rebeca Nicole Date of : 1950 Chief Compliant: Left leg ulceration, follow up SUBJECTIVE/HPI: Rebeca is a 73 y.o. male who presents to [facility] for evaluation of 1 ulcer(s) [...] ms with multilevel great saphenous vein reflux. Sales Utility Representative vein with 4089 ms reflux time and 3.6 mm diameter noted in the proximal medial calf. General: This examination was performed in the upright position. Conclusions: RIGHT: No evidence of right common femoral vein deep vein thrombosis or significant reflux.LEFT: No evidence of deep or superficial vein thrombosis of the lower extremity. Femoropopliteal deep vein reflux. Sales Utility Representative vein reflux. Saphenofemoral junction and great saphenous [...] left ankle limited to breakdown of skin ([facility]) Past Medical History: Diagnosis Date Arthritis Falling [...] Wound Bed Granulation (%) 75% to 100% 01/15/24 0811 Wound Bed Slough (%) < 25% 01/15/24 0811 Assessment/Plan/Education: 1. Venous stasis ulcer of left ankle limited to breakdown of skin with varicose veins ([facility]) - Xeroform 4x4 Wash mild soap and [...] ankle region. 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 Patient verbalize ability to [...] health record EMILY PARHAM 01/15/24 8:30 AM [facility] [place] [facility] [phone] EMILY Parham 01/15/24 0903 documented in this [facility]10-09-2024 Instructions* Patient Instructions* Bianca Berger RN - [...] STEP 6: Secure with double layer tubi wheel loader operator Moisturize all dry and intact skin with [...] Description small Serosanginous yellow documented in this [facility]10-04-2024 History of Present illness Narrative* Catherine Ayoub, LINDY-SHARLENE - 01/10/2024 8:20 AM EDT Images from the original note were not included. Wound Care Progress Note Patient: Rebeca Nicole Date of : 1950 Chief Compliant: Left leg ulceration, follow up SUBJECTIVE/HPI: Rebeca is a 73 y.o. male who presents to [facility] for evaluation of 1 ulcer(s) [...] ms with multilevel great saphenous vein reflux. Sales Utility Representative vein with 4089 ms reflux time and 3.6 mm diameter noted in the proximal medial calf. General: This examination was performed in the upright position. Conclusions: RIGHT: No evidence of right common femoral vein deep vein thrombosis or significant reflux.LEFT: No evidence of deep or superficial vein thrombosis of the lower extremity. Femoropopliteal deep vein reflux. Sales Utility Representative vein reflux. Saphenofemoral junction and great saphenous [...] left ankle limited to breakdown of skin ([facility]) Past Medical History: Diagnosis Date Arthritis [...] ankle region. 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 compliance skilled nursing goal: wound closure Patient verbalize ability to [...] 01/10/24 9:09 AM Catherine Ayoub APRN, SHARLENE, CWS, LUIS F [facility]: [phone] EMILY Proctor 12/04/23 1106 EMILY Proctor 12/18/23 1020 EMIYL Proctor 12/18/23 1158 EMILY Proctor 12/25/23 1016 EMILY Proctor 01/03/24 1012 EMILY Proctor 01/10/24 0929 documented in this encounterDoctors Hospital10-04-2024 Instructions* Patient Instructions* Joycelyn Skaggs RN - [...] STEP 6: Secure with double layer tubi wheel loader operator ACTIVITY: Avoid direct pressure to wound(s) at [...] Description small Serosanginous yellow documented in this encounterDoctors Hospital09-27-2024 History of Present illness Narrative* Catherine Ayoub, LINDY-SHARLENE - 01/03/2024 9:30 AM EDT Images from the original note were not included. Wound Care Progress Note Patient: Rebeca Nicole Date of : 1950 Chief Compliant: Left leg ulceration, follow up SUBJECTIVE/HPI: Rebeca is a 73 y.o. male who presents to [facility] for evaluation of 2 ulcer(s) [...] ms with multilevel great saphenous vein reflux. Sales Utility Representative vein with 4089 ms reflux time and 3.6 mm diameter noted in the proximal medial calf. General: This examination was performed in the upright position. Conclusions: RIGHT: No evidence of right common femoral vein deep vein thrombosis or significant reflux.LEFT: No evidence of deep or superficial vein thrombosis of the lower extremity. Femoropopliteal deep vein reflux. Sales Utility Representative vein reflux. Saphenofemoral junction and great saphenous [...] left ankle limited to breakdown of skin ([facility]) Past Medical History: Diagnosis Date Arthritis Falling [...] to breakdown of skin with varicose veins ([facility]) 2. Venous stasis ulcer of left ankle limited to breakdown of skin, unspecified whether varicose veins present ([facility]) Wash mild soap and water Apply gentamicin [...] ankle region. 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 Patient verbalize ability to [...] PROCTOR 01/03/24 9:33 AM Catherine Ayoub APRN, SCRIPT EDITOR, CWS, COCN [facility]: [phone] EMILY Proctor 12/04/23 1106 EMILY Proctor 12/18/23 1020 EMILY Proctor 12/18/23 1158 EMILY Proctor 12/25/23 1016 EMILY Proctor 01/03/24 1012 documented in this [facility]09-27-2024 Instructions* Patient Instructions* Clare Mckeon [...] STEP 6: Secure with double layer tubi wheel loader operator ACTIVITY: Avoid direct pressure to wound(s) at [...] Description small Serosanginous yellow documented in this [facility]09-20-2024 History of Present illness Narrative* EMILY Proctor - 12/27/2023 8:00 AM EDT Patient here for UNNA boot application - EMILY PROCTOR 12/31/23 12:03 PM EMILY Proctor 12/31/23 1204 documented in this [facility]09-20-2024 Instructions* Patient Instructions* Bianca Berger [...] increases the swelling. When you should call [facility]. ([phone] or ) If your wrap(s) slide down [...] Description small Serosanginous yellow [facility] History of Present illness Narrative* Catherine Kalpana Ayoub, ENTERTAINMENT REPORTER-SCRIPT EDITOR - 12/25/2023 9:00 AM EDT Images from the original note were not included. Wound Care Progress Note Patient: Rebeca Nicole Date of : 1950 Chief Compliant:Left leg ulceration, follow up SUBJECTIVE/HPI: Rebeca is a 73 y.o. male who presents to [facility] for evaluation of 2 ulcer(s) [...] left ankle limited to breakdown of skin ([facility]) Past Medical History: Diagnosis Date Arthritis Falling [...] ankle region. 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 Patient verbalize ability to [...] [facility]: [phone] EMILY Proctor 12/04/23 1106 EMILY Proctor 12/18/23 1020 EMILY Proctor 12/18/23 1158 EMILY Proctor 12/25/23 1016 [facility] Instructions* Patient Instructions* Bianca Berger RN - 12/25/2023 9:00 AM EDT Venous insufficiency testing ordered 12-18-23 Wound Management Treatment Plan Wound Location(s): left proximal posterior calf and left distal posterior calf Applied in clinic today, 12/25/23: Adaptic to cover wound bed Calcium alginate applied to wound bed Secure with roll gauze Tubi wheel loader operator stocking applied Remove dressing for venous testing on 12/26/23. After your testing, apply ABD pad to wound bed and cover with roll gauze and tubi wheel loader operator stocking. Return to clinic on Saturday12/27/23 for [...] increases the swelling. When you should call [facility]. ([phone] or ) If your wrap(s) slide down [...] Description small Serosanginous yellow [facility] History of Present illness Narrative* Catherine Ayoub, ENTERTAINMENT REPORTER-SCRIPT EDITOR - 12/18/2023 9:00 AM EDT Images from the original note were not included. Wound Care Progress Note Patient: Rebeca Nicole Date of : 1950 Chief Compliant:Left leg ulceration, follow up SUBJECTIVE/HPI: Rebeca is a 73 y.o. male who presents to [facility] for evaluation of 2 ulcer(s) [...] left ankle limited to breakdown of skin ([facility]) Past Medical History: Diagnosis Date Arthritis Falling [...] ankle region. 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 When you should call [facility]. ([phone] or ) If your wrap(s) slide down [...] Description small Serosanginous yellow [facility] History of Present illness Narrative* Catherine Ayoub APRN-SCRIPT EDITOR - 12/04/2023 9:00 AM EDT Images from the original note were not included. Wound Care Progress Note Patient: Rebeca Nicole Date of : 1950 Chief Compliant:Left leg ulceration SUBJECTIVE/HPI: Rebeca is a 73 y.o. male who presents to [facility] for evaluation of 2 ulcer(s) [...] left ankle limited to breakdown of skin ([facility]) Past Medical History: Diagnosis Date Arthritis Falling [...] 1 Traumatic Leg Proximal;Posterior;Left (Active) Wound Image 12/04/23 09 Site Assessment Red;Moist 12/04/23 09 Melissa-wound Assessment Blanchable erythema 12/04/23 09 Wound Length (cm) 3.1 cm 12/04/23899 Wound [...] Distal;Posterior;Left (Active) Wound Image 12/04/23899 Site Assessment Clarence;Red 12/04/23899 Melissa-wound Assessment Blanchable erythema 12/04/23899 Wound [...] ankle region. 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 Patient verbalize ability to [...] APRN, SHARLENE, CWS, LUIS F [facility]: [phone] EMILY Proctor 12/04/23 9237 documented in this [facility]Do[facility]08-28-[facility]24 Instructions* Patient Instructions* Clare Mckeon RN - [...] 10-15 minutes ITEMS TO FOLLOW UP ON: user support specialist gentamicin ointment at [facility] pharamcy Length Width Depth Wound drainage Type Description small Serosanginous yellow [facility] this [facility]23 Evaluation note* Encounter Date Diagnosis Assessment Notes Treatment Notes Treatment Clinical Notes Oct, GERD (gastroesophageal reflux di sease) (ICD-10 - K21.9) [facility] Other 04-12-2023 Evaluation note* Encounter Date Diagnosis Assessment Notes Treatment Notes Treatment Clinical Notes Jul, Acute bronchitis due to other sp ecified organisms (ICD-10 - J20.8) Instructed to use Robitussin or Mucinex for cough, saline or Flonase NS for congestion, Tylenol forpain and fever. Jul,Suspected COVID-19 virus infection (ICD-10 - Z20.822)Aware of quarantine guidelines. He has not tested and is planning on gathering w/ college friends. Recommended completing home COVID test since he would still be contagious [facility] Other 02-20-2023 Evaluation note* Encounter Date Diagnosis [...] and exercise. Reviewed age-appropriate preventive testing recommended. May,ERD (gastroesophageal reflux disease) (ICD-10 - K21.9)Diet instructions: Smaller portions, avoid eating and laying flat, avoid eating or drinking prior to bedtime. Weight loss. May,Lumbar spondylosis (ICD-10 - M47.816)The patient is instructed to avoid bending, twisting or lifting. They are to use intermittent heat and ice as needed. They may schedule a massage or gentle manipulation. They may safely use Tylenol as needed. May,Obesity (BMI 30-39.9) (ICD-10 - E66.9)This patient has been instructed on a low-fat, high-fiber diet. They are instructed to reduce calori es, portion sizes and snacks. It is recommended that they exercise for 30 minutes, 3-5 times weekly. May,Rosacea (ICD-10 - L71.9) May,IFG (impaired fasting glucose) (ICD-10 - R73.01)Healthy diet and continued exercise, Yearly A1C May,Nocturia (ICD-10 - R35.1) May,enign prostatic hyperplasia with lower urinary tract symptoms (ICD- 10 - N40.1)Yearly MARIYA and PSA May,High risk medication use (ICD-10 - Z79.899) May,Fatigue, unspecified type (ICD-10 - R53.83) May,Screening PSA (prostate specific antigen) (ICD-10 - Z12.5) May,OtherPersonalized health advice was given to the beneficiary including a written plan for screenings discussed and provided. Advanced care planning reviewed and/or information given as requested. Additional counseling was provided here today in regards to, [ ]. The above visit was performed by [ ], under direct supervision of [ ]. Document reviewed and amended by provider signed below. [facility] Other 02-01-2023 [facility] Evaluation note* Encounter Date Diagnosis Assessment Notes Treatment Notes Treatment Clinical Notes Dec, Family history of colon cancer ( ICD-10 - Z80.0) [employer] Other Evaluation noteNo InformationNort BoxC Other Evaluation noteNo assessment information available [facility] Work Phone: Evaluation note* Diagnosis Onset Date Resolution Status Benign prostatic hyperplasia with lower urinary tract symptoms acuteGERD (gastroesophageal reflux disease)acuteLumbar spondylosisacuteOSA (obstructive sleep apnea)acuteScreening PSA (prostate specific antigen)acute Medicare annual wellness visit, subsequentnoneaMem[facility] Work Phone: Evaluation note* Diagnosis Corns and callosities- Primary Onychomycosis Dermatophytosis of nail Right foot pain Pain in soft tissues of limb documented in this encounter [facility]* Diagnosis Venous stasis ulcer of left ankle limited to breakdown of skin with varicose veins (CMS-HCC)- Primary [facility] Diagnosis Corns and callosities- Primary Right foot pain Pain in soft tissues of limb Onychomycosis Dermatophytosis of nail documented in this encounter [facility] Healthcare[facility]* Diagnosis Venous stasis ulcer of left ankle limited to breakdown of skin with varicose veins (CMS-HCC)- Primary Venous stasis ulcer of left ankle limited to breakdown of skin, unspecified whether varicose veins present (CMS-HCC) documented in this [facility]* Diagnosis Traumatic open wound of left lower leg with delayed healing- Primary Edema of left lower leg Venous stasis ulcer of left ankle limited to breakdown of skin, unspecified whether varicose veins present (CMS-HCC) [facility] Diagnosis Venous stasis ulcer of left ankle limited to breakdown of skin, unspecified whether varicose veins present (CMS-HCC)- Primary [facility]* Diagnosis Venous stasis ulcer of left ankle limited to breakdown of skin with varicose veins (CMS-HCC)- Primary documented in this [facility]* Diagnosis Venous stasis ulcer of left ankle limited to breakdown of skin with varicose veins (CMS-HCC)- Primary [facility]* Diagnosis Venous stasis ulcer of left ankle limited to breakdown of skin without varicose veins (CMS-HCC)- Primary Edema of left lower leg [facility]* Diagnosis Venous stasis ulcer of left ankle limited to breakdown of skin, unspecified whether varicose veins present (CMS-HCC)- Primary Venous stasis ulcer of left ankle limited to breakdown of skin without varicose veins (CMS-HCC) documented in this encounter [facility]* Diagnosis Venous stasis ulcer of left ankle limited to breakdown of skin without varicose veins (CMS-HCC)- Primary [facility]* Diagnosis Venous insufficiency of left lower extremity- Primary Venous stasis ulcer of left ankle limited to breakdown of skin with varicose veins (CMS-HCC) [facility]* Diagnosis Venous stasis ulcer of left ankle limited to breakdown of skin with varicose veins (CMS-HCC)- Primary Edema of left lower leg documented in this encounter [facility]* Diagnosis Venous stasis ulcer of left ankle limited to breakdown of skin with varicose veins (CMS-HCC)- Primary Venous insufficiency of left lower extremity Varicose veins of left lower extremity with pain Phlebitis Phlebitis and thrombophlebitis of unspecified site documented in this encounter [facility]* Diagnosis Venous stasis ulcer of left ankle limited to breakdown of skin with varicose veins (CMS-HCC) documented in this encounter [facility]* Diagnosis Venous stasis ulcer of left ankle limited to breakdown of skin with varicose veins (CMS-HCC)- Primary Rash due to allergy documented in this encounter [facility]* Diagnosis Venous stasis ulcer of left ankle limited to breakdown of skin, unspecified whether varicose veins present (CMS-HCC)- Primary Edema of left lower leg documented in this encounter [facility]* Diagnosis Pre-operative anxiety- Primary Venous stasis ulcer of left ankle limited to breakdown of skin with varicose veins (CMS-HCC) documented in this encounter [facility] note* Diagnosis Corns and callosities- Primary Onychomycosis Dermatophytosis of nail Onychodystrophy Other specified disease of nail Right foot pain Pain in soft tissues of limb Left foot pain Pain in soft tissues of limb documented in this encounter [facility] Healthcare[facility] note* Diagnosis Corns and callosities- Primary Onychomycosis Dermatophytosis of nail Onychodystrophy Other specified disease of nail Right foot pain Pain in soft tissues of limb Left foot pain Pain in soft tissues of limb documented in this encounter [facility] HealthcareHistory and physical note Author Reji Roy [facility] May 09, 2022 10:32amNote Date/TimeFebruary 2022 10:32am[address] [address] Gastroenterology H&P Signed Patient: Rebeca Nicole MR#: [id number] : 1950 Acct:[id number] Age/Sex: 71 / M Adm Date: 3 Loc: Room: Type: [facility] Attending Dr: Reji Roy MD Copies to: DO Reji Mcgrath MD~ Date of Service: 05/09/2022 HISTORY & PHYSICAL: Patient's history with special attention to the cardiovascular, pulmonary systems and the current problem was reviewed with the patient immediately prior to the procedure. Present medications and doses reviewed in the EMR. Allergies and pertinent laboratory tests were also re viewedat this time in the EMR. The physical [...] MD Documented By: Reji Roy MD 05/09/22 1032 Signed By: <Electronically signed by Reji Roy MD> 05/09/22 1032 [facility] Work Phone: Hissyyt general Narrative - Reported* Type Description Date Medical History Schatzki's ring Medical HistoryGERD (gastroesophageal reflux disease)Surgical HistoryEGDSurgical HistoryKnee replacement [id number] HistoryHip replacement P90379Jgdlmzwx Historyshoulder replacementSurgical Historycolonosocpy;Disease:diverticulosis 2009Surgical Historyhip replacement b/lSurgical HistoryHip Arthroplastylt Surgical Historyknee replacement b/lSurgical MgttefiVjqduxftzg0446Eilrezil HistoryKidney stone removed/Surgical [id number] HistoryNomiku Other Hisub[facility] general Narrative - Reported* Type Description Date Medical History Schatzki's ring Medical HistoryGERD (gastroesophageal reflux disease)Surgical HistoryEGDSurgical HistoryKnee replacement [id number] HistoryHip replacement O46225Vujhsgtq Historyshoulder replacementSurgical Historycolonosocpy;Disease:diverticulosis 2009Surgical Historyhip replacement b/lSurgical HistoryHip Arthroplastylt Surgical Historyknee replacement b/lSurgical CzbgxprZpwgzeqang6295Akczawde HistoryKidney stone removed11/24Surgical NtbjfvvILE2398Tlcsuslv History colonoscopy05/2022Hospitalization [facility] Other Hospital Discharge instructions Additional Instructions DISCHARGE [...] screening -Follow up with PCP. -Office number [phone].[facility] Work Phone: InstructionsNot on filedocumented in this encounter [facility]Not on filedocumented in this encounter [facility] System[facility]ructionsNot on filedocumented in this encounter [facility] System[facility]ructionsNot on filedocumented in this encounter [facility] SystemInstructionsNot on filedocumented in this encounter [facility] SystemInstructionsNot on filedocumented in this encounter [facility] SystemReason for referral (narrative)No reason for referral information availableRegency Hospital Company Work Phone: Reason for visit Narrative* Consultation (Routine) - Pending ReviewSpecialtyDiagnoses / ProceduresReferred By ContactReferred To ContactWbayhealth medical center Care Diagnoses Venous stasis ulcer of left ankle limited to breakdown of skin, unspecified whether varicose veins present ([facility]) Morales Ramon, DPM [address] [place] [address] [facility] [address] [place] [address] Referral IDSElio DateExpiration DateVisits RequestedVisits [id number] Review Specialty Services Required / [facility] System Summary Purpose Family History No Family History Records Found Relationship Condition Age at Onset Recorded Date/T vida father Abdominal aortic aneurysm (AAA) Unknown Malignant neoplasm of colonUnknownChronic obstructive pulmonary diseaseUnknown HypertensionUnknownNot SpecifiedHypertensionUnknownDiaphragmatic herniaUnknown brotherAcquired immunodeficiency syndromeUnknownbrotherPeripheral arterial diseaseUnknownbrotherCardiac defibrillator in placeUnknownnatural sonEpilepsy Unknown Relationship Condition Age at Onset Recorded Date/T vida father Abdominal aortic aneurysm (AAA) Unknown Malignant neoplasm of colonUnknownChronic obstructive pulmonary diseaseUnknown HypertensionUnknownMalignant neoplasmUnknownDeceasedUnknownNot Specified HypertensionUnknownDiaphragmatic herniaUnknownbrotherAcquired immunodeficiency syndromeUnknownPeripheral arterial diseaseUnknownCardiac defibrillator in place Unknownnatural sonEpilepsyUnknowngrandparentMalignant neoplasmUnknownNot SpecifiedHeart diseaseUnknown Relationship Condition Age at Onset Recorded Date/T vida father Abdominal aortic aneurysm (AAA) Unknown Malignant neoplasm of colonUnknownChronic obstructive pulmonary diseaseUnknown HypertensionUnknownMalignant neoplasmUnknownDeceasedUnknownmotherHypertension UnknownDiaphragmatic herniaUnknownbrotherAcquired immunodeficiency syndrome UnknownPeripheral arterial diseaseUnknownCardiac defibrillator in placeUnknown sonEpilepsyUnknowngrandparentMalignant neoplasmUnknownmotherHeart diseaseUnknown Advance Directives No Advanced Directives Records Found Advance Directive Response Recorded Date/ Time Advance [...] Amb Documentation August 28, 2024 8:00a m [facility] f/u August 28, 2024 9:16a m Reason for Visit Admit Date GERD (gastroesophageal reflux disease) M arch 2024 8:53am Elevated BP without diagnosis of hyperte nsion July 28, 2024 10:32am ALEXANDRA (obstructive sleep apnea) July 10:32am Palpitations July 28, 2024 10: 32am Atrial flutter August 28, 2024 9:16a m GERD (gastroesophageal reflux disease) [facility] 2024 9:16am Hypertension August 28, 2024 9:16a m NSVT (nonsustained ventricular tachycard ia) August 28, 2024 9:16am Obesity August 28, 2024 9:16a m ALEXANDRA (obstructive sleep apnea) August 28, 2024 9:16am Chief Complaint Admit Date heart racing when sleeping on left side July 28, 2024 10:32am Amb Documentation August 28, 2024 8:00a m [facility] f/u August 28, 2024 9:16a m Wellness [...] 06, 2024 9:00am Medicare annual wellness visit, subseque nt October 06, 2024 9:00am Chief Complaint Admit Date Wellness October 06, 2024 9:00a m Rash December 03, 2024 10 :43am Reason for Visit Admit Date Anemia October 06, 2024 9:00a m Atrial flutter October 06, 2024 9:00a m GERD (gastroesophageal reflux disease) J 2024 9:00am Hypertension October 06, 2024 9:00a m Lumbar spondylosis October 06, 2024 9:00a m NSVT (nonsustained ventricular tachycard ia) October 06, 2024 9:00am Obesity October 06, 2024 9:00a m ALEXANDRA (obstructive sleep apnea) October 06, 2024 9:00am Screening PSA (prostate specific antigen ) October 06, 2024 9:00am Medicare annual wellness visit, subseque nt October 06, 2024 9:00am Reason for Visit Admit Date Anemia October 06, 2024 9:00a m Atrial flutter October 06, 2024 9:00a m GERD (gastroesophageal reflux disease) Elisha lamberty 2024 9:00am Hypertension October 06, 2024 9:00a m Lumbar spondylosis October 06, 2024 9:00a m NSVT (nonsustained ventricular tachycard ia) October 06, 2024 9:00am Obesity October 06, 2024 9:00a m ALEXANDRA (obstructive sleep apnea) October 06, 2024 9:00am Screening PSA (prostate specific antigen ) October 06, 2024 9:00am Medicare annual wellness visit, subseque nt October 06, 2024 9:00am Adverse reaction to tkui-crm-dnuibkn med ication December 03, 2024 10:43am Atrial fibrillation December 03, 2024 10 :43am Pruritic erythematous rash December 03, 2024 10:43am Reason for Referral SpecialtyDiagnoses / ProceduresReferred By ContactReferred To Contact Diagnoses Venous stasis ulcer of left ankle limited to breakdown of skin, unspecified whether varicose veins present ([facility]) Procedures Xeroform 4x4 Catherine Ayoub, ENTERTAINMENT REPORTER-SCRIPT EDITOR [address] [place] [address] Referral IDStatusReasonStart DateExpiration DateVisits RequestedVisits [id number] [id number] / ProceduresReferred By ContactReferred To ContactVascular Surgery Diagnoses Venous stasis ulcer of left ankle limited to breakdown of skin with varicose veins ([facility]) Catherine Ayoub, ENTERTAINMENT REPORTER-SCRIPT EDITOR [address] [place] [address] [place] [address] [place] [address] [place] [address] Referral IDStatusReasonStart DateExpiration DateVisits RequestedVisits [id number] Review Specialty Services Required / Additional Source Comments (unrecognized sect ion and content) No Status Records FoundNo Status Records FoundNo Status Records FoundNo Status Records FoundNo Status Records FoundNo Status Records FoundNo Status Records Found INFORMATION SOURCE (unrecogn ized section and content) DATE CREATED AUTHOR 07/12/2018 [facility] DATE CREATED AUTHOR AUTHOR'S ORGANIZ ATION 05/16/2022 [facility] DATE CREATED AUTHOR AUTHOR'S ORGANIZ ATION 06/05/2022 [facility] DATE CREATED AUTHOR AUTHOR'S ORGANIZ ATION 02/03/2024 [facility] DATE CREATED AUTHOR AUTHOR'S ORGANIZ ATION 04/17/2024 [facility] DATE CREATED AUTHOR AUTHOR'S ORGANIZ ATION 12/01/2024 [facility] DATE CREATED AUTHOR AUTHOR'S ORGANIZ ATION 02/17/2025 [facility] REASON FOR VISIT (unrecogniz ed section and content) ReasonCommentsDressing ChangeSpecialtyDiagnoses / ProceduresReferred By Contact Referred To ContactWound Care Diagnoses Venous stasis ulcer of left ankle limited to breakdown of skin, unspecified whether varicose veins present ([facility]) Morales Ramon DPM [address] [place] [address] [facility] [address] [place] [address] Referral IDStatusReasonStart DateExpiration DateVisits RequestedVisits [id number] Review Specialty Services Required /[id number] careDave Xiomara Nicole is a 73 y.o. male who presents for right foot Callous check. Patient relates he continues wound care for the left ankle. Procedure with vacsular 03/13/2024. SS: 14.ReasonComments Wound CheckSpecialtyDiagnoses / ProceduresReferred By ContactReferred To Contact Wound Care Diagnoses Venous stasis ulcer of left ankle limited to breakdown of skin, unspecified whether varicose veins present ([facility]) Morales Ramon DPM [address] [place] [address] Phone: tel: fax: [facility] [address] [place] [address] Phone: tel: fax: Referral IDStatusReasonStart DateExpiration DateVisits RequestedVisits [id number] Review Specialty Services Required [id number] CallousesEstablished pt presents today for callus debridement. SS: 14ReasonCommentsWound CheckReasonCommentsWound Check SpecialtyDiagnoses / ProceduresReferred By ContactReferred To ContactWound Care Diagnoses Venous stasis ulcer of left ankle limited to breakdown of skin, unspecified whether varicose veins present ([facility]) Morales Ramon S, DPM [address] [place] [address] Phone: tel: fax: [facility] [address] [place] [address] Phone: tel: fax: Referral IDStatusReasonStart DateExpiration DateVisits RequestedVisits [id number] Review Specialty Services Required [id number] VeinsNew patient-testing done- goes to wound care for wound on left ankleSpecialtyDiagnoses / ProceduresReferred By ContactReferred To ContactVascular Surgery Diagnoses Venous stasis ulcer of left ankle limited to breakdown of skin with varicose veins ([facility]) Catherine Ayoub, ENTERTAINMENT REPORTER-SCRIPT EDITOR [address] [place] [address] Phone: tel: fax: Lan Cho MD [address] [facility] [address] [place] [address] Phone: tel:[phone] fax: Referral IDStatusReasonStart DateExpiration DateVisits RequestedVisits [id number] Review Specialty Services Required [id number] DateCommentsMed [id number] Date Commentsprocedure time [id number] DateCommentscancel procedure 4ReasonCommentsCallus careSee Nicole is a 73 y.o. male. Established pt presents today for callus debridement. SS: 14ReasonCommentsCallousesSee Nicole is a 74y.o. male. Established pt presents today for callus debridement. SS: 14 Care Teams (unrecognized sec tion and content) Team Status: Inactive Member Role Status Dates Gutierrez Larry , Primary Care Provider Active Kristi Corona ProviderActive Team Status: Active Member Role Status Dates Gutierrez Larry , Primary Care Provider Active Team Status: Inactive Member Role Status Dates Gutierrez Larry DO Primary Care Provide r, Attending Provider Active Start: September 16, 2023 End: September 16, 2023Team MemberRelationshipSpecialtyStart DateEnd Date Gutierrez Larry MD [address] [id number] PCP - GeneralInternal Xkopoyac98/13/23Team MemberRelationshipSpecialtyStart Date End Date Gutierrez Larry MD [address] [id number] PCP - GeneralInternal Hjvrsqnu28/13/23Team MemberRelationshipSpecialtyStart Date End Date Gutierrez Larry DO [address] [place] [address] PCP - GeneralInternal Medicine07/26/20Team MemberRelationshipSpecialtyStart Date End Date Gutierrez Larry MD [address] [id number] PCP - GeneralInternal Sczrbftx14/13/23Team MemberRelationshipSpecialtyStart Date End Date Gutierrez Larry DO [address] [place] [address] PCP - GeneralInternal Medicine07/26/20Team MemberRelationshipSpecialtyStart Date End Date Gutierrez Larry, DO [address] [place] [address] PCP - GeneralInternal Medicine07/26/20Team MemberRelationshipSpecialtyStart Date End Date Gutierrez Larry, DO [address] [place] [address] PCP - GeneralInternal Medicine07/26/20Team MemberRelationshipSpecialtyStart Date End Date Gutierrez Larry, DO [address] [place] [address] PCP - GeneralInternal Medicine07/26/20Team MemberRelationshipSpecialtyStart Date End Date Gutierrez Larry, DO [address] [place] [address] PCP - GeneralInternal Medicine07/26/20Team MemberRelationshipSpecialtyStart Date End Date Gutierrez Larry, DO [address] [place] [address] PCP - GeneralInternal Medicine07/26/20Team MemberRelationshipSpecialtyStart Date End Date Gutierrez Larry, DO [address] [place] [address] PCP - GeneralInternal Medicine07/26/20Team MemberRelationshipSpecialtyStart Date End Date Gutierrez Larry, DO [address] [place] [address] PCP - GeneralInternal Medicine07/26/20Team MemberRelationshipSpecialtyStart Date End Date Gutierrez Larry DO [address] [place] [address] PCP - [facility] Medicine07/26/20Team MemberRelationshipSpecialtyStart Date End Date Gutierrez Larry DO [address] [id number] PCP - [facility] Medicine07/26/20Team MemberRelationshipSpecialtyStart Date End Date Gutierrez Larry DO [address] [id number] PCP - [facility] Medicine07/26/20 Team Status: Inactive Member Role Status Dates Gutierrez Larry DO Primary Care Provider Active Start: June 22, 2024 End: June 22, 2024Leta Thapa ProviderActiveStart: June 22, 2024 End: June 22, 2024Team MemberRelationshipSpecialtyStart DateEnd Date Gutierrez Larry MD [address] [place] [address] PCP - [facility] Vgjbtnnz32/13/23 Team Status: Inactive Member Role Status Dates [...] Care Provider Active Start: August 19, 2024 Kristi Baugh ProviderActiveStart: August 19, 2024 Team Status: Active Member Role Status Dates Gutierrez Larry DO Primary Care Provider Active Start: August 28, 2024 Wendy Rausch ProviderActiveStart: August 28, 2024 Team Status: Inactive Member Role Status Dates Gutierrez Larry DO Primary Care Provide r, Attending Provider Active Start: August 28, 2024 End: August 28, 2024 Team Status: Inactive Member Role Status Dates Gutierrez Larry DO Primary Care Provider Active Start: July 28, 2024 End: July 28sathya Larry DOAttending ProviderActiveStart: July 28, 2024 End: July 28, 2024 Team Status: Active Member Role Status Dates Gutierrez Larry DO Primary Care Provider Active Start: July 30, 2024 Gutierrez Larry DOAttending ProviderActiveStart: July 30, 2024 Team Status: Inactive Member Role Status Dates Gutierrez Larry DO Primary Care Provider Active Start: August 28, 2024 End: August 28sathya Larry DOAttending ProviderActiveStart: August 28, 2024 End: August 28, 2024 Team Status: Inactive Member Role Status Dates Gutierrez Larry DO Primary Care Provider Active Start: October 06, 2024 End: October 06sathya Larry DOAttending ProviderActiveStart: October 06, 2024 End: October 06, 2024Team MemberRelationshipSpecialtyStart DateEnd Date Gutierrez Larry DO [address] [place] [address] PCP - [facility] Braaisyo08/13/23Team MemberRelationshipSpecialtyStart Date End Date Gutierrez Larry DO [address] [place] [phone] PCP - [place]02/18/23 Team Status: Active Member Role Status Dates Gutierrez Larry DO Primary Care Provider Active Start: October 07, 2024 Joycelyn Kahn DOAttending ProviderActiveStart: October 07, 2024 Team Status: Active Member Role Status Dates Gutierrez Larry DO Primary Care Provider Active Start: October 08, 2024 Gutierrez Larry DOAttending ProviderActiveStart: October 08, 2024 Team Status: Inactive Member Role Status Dates Gutierrez Larry DO Primary Care Provider Active Start: December 03, 2024 End: December 03enjaXimena Hampton ProviderActiveStart: December 03, 2024 End: December 03, 2024 Team Status: Inactive Member Role Status Dates Gutierrez Larry DO Primary Care Provider Active Start: December 09, 2024 End: December 09, 2024KanuXimena Wilks ProviderActiveStart: December 09, 2024 End: December 09, 2024 Goals (unrecognized section and content) Goals [...] BE BASED ON THE PRIMARY CLINICAL RECORDS. [facility] [employer] [facility]. provides no warranty or guarantee of the accuracy or completeness of information in this document.
== END 2025-02-26 10:34 | disposition home or self-care (01) ==
LOC: FHNEUROLOG 10:33
PROVIDERS: PCP Internal Medicine; Visit Provider Psychiatry & Neurology Neurology
DX: G47.33 Obstructive sleep apnea (adult) (pediatric) (principal); R09.02 Hypoxemia
CPT/HCPCS: G0463